=== PATIENT | female | born 1935 | race Caucasian/White ===

== ENCOUNTER 2020-12-17 10:50 | Outpatient (REF) | payer MEDICARE, SELFPAY | END 2020-12-17 10:51 | disposition home or self-care (01) | LOC: HO.HMGCLDS 10:50 | PROVIDERS: PCP Internal Medicine; Visit Provider Internal Medicine | DX: Z20.822 Contact with and (suspected) exposure to COVID-19 (principal) | CPT/HCPCS: 36415; C9803; U0003 ==

== ENCOUNTER 2021-03-13 13:53 | Outpatient (REF) | payer MEDICARE, MEDICAID, SELFPAY | END 2021-03-13 13:54 | disposition home or self-care (01) | LOC: HO.HAP 13:53 | PROVIDERS: Visit Provider Internal Medicine | DX: Z46.1 Encounter for fitting and adjustment of hearing aid (principal); H90.3 Sensorineural hearing loss, bilateral | CPT/HCPCS: V5275 ==

== ENCOUNTER 2021-04-09 14:41 | Outpatient (REF) | payer MEDICARE, MEDICAID, SELFPAY | END 2021-04-09 14:42 | disposition home or self-care (01) | LOC: HO.HAP 14:41 | PROVIDERS: Visit Provider Internal Medicine | DX: H90.3 Sensorineural hearing loss, bilateral (principal); Z46.1 Encounter for fitting and adjustment of hearing aid | CPT/HCPCS: V5264 ==

== ENCOUNTER 2021-08-16 14:37 | Inpatient (IN) | payer MEDICARE, MEDICAID, SELFPAY ==
[2021-08-16] VITALS (8 sets, daily range): BP systolic 144–194; BP diastolic 51–100; PULSE 57–68; RESP 14–18; TEMP 36–36.6; O2SAT 96–97; BMI 448.6
--- NOTE | ~2021-08-16 | US_ITS ---
EXAMINATION: RENAL ULTRASOUND WITH RENAL ARTERY DOPPLER CLINICAL INFORMATION: This is an 85-year-old female with hypertension. Chronic kidney disease. Acute kidney injury. Possible renal artery stenosis. COMPARISON: Comparison is made to a previous CT scan of the abdomen dated 12/26/2015 which demonstrated some atrophy to the kidneys. TECHNIQUE: Bilateral renal ultrasound with renovascular Doppler was performed. FINDINGS: The right kidney measures 10.1 x 5.0 x 5.0 cm. There is no evidence of hydronephrosis. There is increased echogenicity to the kidney with decreased cortical medullary differentiation. No stone or mass is seen. The left kidney measures 9.0 x 4.8 x 5.3 cm. There is increased echogenicity to the kidney with decreased cortical medullary differentiation. There is no stone or mass. There is an anechoic, nonnodular, noncalcified, thin-walled, nonseptated simple cyst in the upper pole kidney measuring 1.5 x 1.6 x 1.7 cm. This cyst was present previously. Color Doppler flow evaluation with spectral waveform analysis was performed. The aorta measures 87 cm/s. The proximal right renal artery could not be seen. The velocities measure 98-1 25 cm/s. The proximal left renal artery could not be seen. The velocities measure 42-60 5 cm. The right renal artery ratio is 1.4. The left renal artery ratio is 0.7. The renal veins appear patent. There are normal resistive indices. There is no post stenotic turbulence. US/US renal doppler IMPRESSION: 1. There is bilateral medical renal disease with decreased cortical medullary differentiation. 2. There is no Doppler evidence of renal artery stenosis.
--- NOTE | ~2021-08-16 | US_ITS ---
EXAMINATION: RENAL ULTRASOUND WITH RENAL ARTERY DOPPLER CLINICAL INFORMATION: This is an 85-year-old female with hypertension. Chronic kidney disease. Acute kidney injury. Possible renal artery stenosis. COMPARISON: Comparison is made to a previous CT scan of the abdomen dated 12/26/2015 which demonstrated some atrophy to the kidneys. TECHNIQUE: Bilateral renal ultrasound with renovascular Doppler was performed. FINDINGS: The right kidney measures 10.1 x 5.0 x 5.0 cm. There is no evidence of hydronephrosis. There is increased echogenicity to the kidney with decreased cortical medullary differentiation. No stone or mass is seen. The left kidney measures 9.0 x 4.8 x 5.3 cm. There is increased echogenicity to the kidney with decreased cortical medullary differentiation. There is no stone or mass. There is an anechoic, nonnodular, noncalcified, thin-walled, nonseptated simple cyst in the upper pole kidney measuring 1.5 x 1.6 x 1.7 cm. This cyst was present previously. Color Doppler flow evaluation with spectral waveform analysis was performed. The aorta measures 87 cm/s. The proximal right renal artery could not be seen. The velocities measure 98-1 25 cm/s. The proximal left renal artery could not be seen. The velocities measure 42-60 5 cm. The right renal artery ratio is 1.4. The left renal artery ratio is 0.7. The renal veins appear patent. There are normal resistive indices. There is no post stenotic turbulence. US/US renal BI IMPRESSION: 1. There is bilateral medical renal disease with decreased cortical medullary differentiation. 2. There is no Doppler evidence of renal artery stenosis.
--- NOTE | ~2021-08-16 | XR_ITS ---
EXAMINATION: XR CHEST CLINICAL INFORMATION: Dyspnea COMPARISON: Chest radiograph from 01/31/2020 TECHNIQUE: Frontal view of the chest was obtained. FINDINGS: Bilateral low lung volumes. No pneumothorax. Trachea is midline. Cardiomediastinal silhouette is not enlarged. No large pleural effusion. Osseous structures are intact. Soft tissues are unremarkable. XR/XR chest 1V IMPRESSION: No acute cardiopulmonary process.
--- NOTE | ~2021-08-16 | CT_ITS ---
EXAMINATION: CT HEAD WITHOUT CONTRAST CLINICAL INFORMATION: Dizziness COMPARISON: Head CT from 11/24/2019 TECHNIQUE: Contiguous axial imaging was performed from the skull base to vertex without intravenous administration of contrast. This CT examination was performed using dose optimization techniques as appropriate, variously including the following: *Automated exposure control *Adjustment of mA and/or kV according to patient size (this includes techniques or standardized protocols for targeted exams where dose is matched to indication/reason for exam; i.e. extremities or head) *Use of iterative reconstruction technique DLP: 735 mGy-cm FINDINGS: There is atherosclerotic calcification of cavernous carotid arteries. No evidence of a dense cerebral artery sign. The brain parenchyma has normal attenuation. The negro-white matter differentiation is well preserved. No evidence of an acute major vascular territory infarction. No intracranial hemorrhage, extra-axial fluid collection, focal mass effect or midline shift. Chronic mild volume loss of brain parenchyma with commensurate prominence of ventricles and sulci. No hydrocephalus. Brainstem and cerebellum have a normal appearance. The cerebellar tonsils are in normal position. The calvarium is intact. There is hyperostosis frontalis interna. The visualized paranasal sinuses, mastoid air cells and middle ear cavities are well aerated. There is a small mucous retention cyst within a right anterior ethmoid air cell. Prior ocular lens replacements. CT/CT head/brain wo con IMPRESSION: No evidence of hemorrhage or other acute intracranial pathology compared to 11/24/2019.
--- NOTE | 2021-08-16 14:53 | ED_ITS ---
HPI - Weakness General Stated complaint: weakness Time Seen by Provider: 08/16/21 14:53 Source: patient and EMS Mode of arrival: EMS Limitations: no limitations History of Present Illness Complaint: generalized weakness Onset (ago): day(s) (1) Duration: intermittent Location: generalized Migration: none Severity: moderate Quality: other (weakness, just left rehab) Relieving factors: none Exacerbating factors: none Context: other (was in a rehab for a while) Associated symptoms: other (difficulty voiding feels weak) Related Data Home Medications Medication Instructions Recorded Confirmed acetaminophen 325 mg tablet 650 mg PO Q4H PRN 08/16/21 08/16/21 albuterol sulfate 90 mcg/actuation 2 puff INHALATION Q4H PRN 08/16/21 08/16/21 aerosol inhaler atorvastatin 80 mg tablet 80 mg PO BEDTIME 08/16/21 08/16/21 bupropion HCl 150 mg 24 hr tablet, 1 tab PO DAILY 08/16/21 extended release carvedilol 25 mg tablet 1 tab PO BID 08/16/21 famotidine 20 mg tablet 1 tab PO BID 08/16/21 gabapentin 100 mg capsule 1 cap PO BEDTIME 08/16/21 hydralazine 50 mg tablet 1 tab PO TID 08/16/21 loratadine 10 mg tablet 10 mg PO DAILY PRN 08/16/21 08/16/21 lorazepam 0.5 mg tablet 1 tab PO BEDTIME PRN 08/16/21 oxybutynin chloride 5 mg tablet 5 mg PO DAILY 08/16/21 08/16/21 sennosides 8.6 mg tablet (senna) 17.2 mg PO DAILY PRN 08/16/21 08/16/21 sodium bicarbonate 325 mg tablet 1 tab PO TID 08/16/21 umeclidinium 62.5 mcg/actuation 1 puff INHALATION DAILY 08/16/21 blister powder for inhalation (Incruse Ellipta) Allergies Allergy/AdvReac Type Severity Reaction Status Date / Time No Known Allergies Allergy Verified 08/16/21 15:17 Review of Systems Review of Systems: Constitutional : No Weight loss, No Fever, No Chills, pos Fatigue, pos Malaise ENT/Mouth : No sore throat, No Rhinorrhea Eyes: No Eye Pain, No Swelling, No Redness Cardiovascular : No Chest Pain, No SOB, No Dyspnea on Exertion, No Orthopnea, No Edema, No Palpitations Respiratory : No Cough, No Sputum, No Wheezing Gastrointestinal : No Nausea, No Vomiting, No Diarrhea, No Constipation, No abdominal Pain, No Hematochezia, No Melena Genitourinary : No Dysuria, No Urinary Frequency, No Hematuria, pos hesitancy Musculoskeletal : No joint pain, No Myalgias, No Joint Swelling Skin : No Skin Lesions, No rash Neuro : pos Weakness, No Numbness, pos Dizziness, No Headache Psych : No Anxiety/Panic, No Depression Heme/Lymph: No Bruising, No Bleeding,No Lymphadenopathy Endocrine : No Polyuria, No Polydipsia All other systems reviewed and are negative [facility] Past Medical History Attestation statement: The following information was validated with the patient. Medical History COPD (chronic obstructive pulmonary disease) High cholesterol HTN (hypertension) Kidney disease Social History Social History (Updated 08/16/21 @ 15:30 by Lindsay Vazquez DO) Patient Tobacco Use Status: Tobacco use Unknown Use of substances other than those prescribed or required for medical reasons: No Advance Directives: No Advance Directives Information Provided: No Physical Exam Vital Signs: Appearance: Alert. Oriented X3. No acute distress. Eyes: Pupils equal, round and reactive to light. ENT: Pharynx normal. Neck: Normal inspection. Neck supple. CVS: Normal heart rate and rhythm. Pulses normal. Respiratory: No respiratory distress. Breath sounds slightly decreased Abdomen: Soft and nontender. Skin: Skin warm and dry. Normal skin color. Normal skin turgor. Extremities: No lower extremity edema. No calf ttp Neuro: Oriented X 3. No motor deficit. No sensory deficit. Course Course Course Narrative: RAÚL on CKD fluids ordered , no CP, trop mildly elevated but no RAYO, no CP/SOB has hx of vertigo signed out to Keon NAVARRO pending further workup anticipate admission MDM - Weakness MDM Narrative Medical decision making narrative: 85 yo female with COPD, HTN, HLD , vertigo here with c/o dizziness and feeling foggy worse with standing x 1 days, she denies CP, states her breathing is at baseline. Labs, CT head, EKG, ordered no focal findings, just overall weakness - infectious and metabolic workup ordered ECG Data Attestation: I personally reviewed and interpreted this ECG as follows: ECG interpretation date: 08/16/21 ECG interpretation time: 15:14 Interpretation: Rate: 57 Rhythm: sinus bradycardia with 1st degree AVB [place]: normal Normal P waves. Normal CARLOS. Normal QRS complex. ST T wave : normal no RAYO, inverted I and aVL qTC: normal prior studies: no acute ischemia The study has been interpreted contemporaneously by me. . Discharge Plan Discharge Clinical Impression: Acute kidney injury superimposed on chronic kidney disease, Weakness Prescriptions: No Action carvedilol 25 mg tablet 1 tab PO BID RF: 0 sodium bicarbonate 325 mg tablet 1 tab PO TID RF: 0 famotidine 20 mg tablet 1 tab PO BID RF: 0 lorazepam 0.5 mg tablet 1 tab PO BEDTIME PRN (Reason: Anxiety) RF: 0 hydralazine 50 mg tablet 1 tab PO TID RF: 0 gabapentin 100 mg capsule 1 cap PO BEDTIME RF: 0 rosuvastatin 20 mg tablet 1 tab PO DAILY RF: 0 bupropion HCl 150 mg tablet extended release 24 hr 1 tab PO DAILY RF: 0 venlafaxine 150 mg tablet extended release 24hr 1 tab PO QAM RF: 0 Incruse Ellipta 62.5 mcg/actuation blister with device 1 puff inhalation DAILY RF: 0
--- NOTE | 2021-08-16 14:56 | ECG_ITS ---
Test Reason : WEAKNESS Blood Pressure : / mmHG Vent. Rate : 057 BPM Atrial Rate : 057 BPM P-R Int : 200 ms QRS Dur : 080 ms QT Int : 412 ms P-R-T Axes : 036 -07 080 degrees QTc Int : 401 ms Sinus bradycardia Otherwise normal ECG When compared with ECG of 31-JAN-2020 10:04, QT has shortened Referred By: Lindsay Vazquez Electronically Signed By:SHELLY ARAGON
[2021-08-16 15:40] LABS: MANUAL DIFF FLAG NO
[2021-08-16] MEDS: Meclizine HCl 25 MG TABLET PO (15:40)
[2021-08-16 15:42] LABS: Basophils Percent Auto 0.2 % (0-2); Eosinophils Absolute Auto 0.2 X10*3/uL (0.0-0.4); Hematocrit 38.1 % (37-47); Hemoglobin 11.4 g/dl (12.0-16.0); Imm Gran Abs Auto 0.04 X10*3/uL (0.00-0.03); Imm Gran Pct Auto 0.4 % (0.0-0.4); Lymphocytes Absolute Auto 1.1 X10*3/uL (1.2-4.9); Lymphocytes Percent Auto 10.4 % (20-40); Mean Corpuscular HGB Conc 29.9 g/dl (31.0-35.0); Mean Corpuscular Hemoglobin 28.6 pg (27.0-33.0); Mean Corpuscular Volume 95.7 fL (80-98); Mean Platelet Volume 9.3 fL (9.4-12.3); Monocytes Absolute Auto 1.2 X10*3/uL (0.1-1.2); Monocytes Percent Auto 11.5 % (2-11); Neutrophils Absolute Auto 7.8 X10*3/uL (2.0-8.3); Neutrophils Percent Auto 75.5 % (45-73); Platelet Count 185 X10*3/uL (160-400); Red Blood Count 3.98 X10*6/uL (4.20-5.50); Red Cell Distribution Width 15.1 % (11.0-16.0); White Blood Count 10.4 X10*3/uL (4.8-10.8)
[2021-08-16 15:44] LABS: VBG HCO3 26 mmol/L (22-26); VBG pCO2 53 mmHg; VBG pH 7.29 (7.32-7.43); VBG pO2 56 mmHg
[2021-08-16 15:45] LABS: Venous Blood Gas Refer to POC result
--- NOTE | 2021-08-16 15:50 | PHA.MEDREC ---
Pharmacy Consult ? Medication Reconciliation Pharmacy has completed the medication reconciliation. Spoke to RN at [facility] to clarify between med claim history and list present in chart. Maria Ines WashingtonD
[2021-08-16 15:55] LABS: COVID-19 Test Negative (Negative)
[2021-08-16 16:06] LABS: Lactic Acid 1.2 mmol/L (0.5-2.0)
[2021-08-16 16:10] LABS: Alanine Aminotransferase 18 U/L (0-31); Albumin Level 3.5 g/dL (3.5-5.0); Alkaline Phosphatase 70 U/L (39-117); Anion Gap 13 (12-20); Aspartate Amino Transferase 12 U/L (5-31); Bilirubin Direct < 0.2 mg/dL (0.0-0.5); Bilirubin Total 0.5 mg/dL (0.0-1.0); Blood Urea Nitrogen 45 mg/dL (9-16); Calcium 8.5 mg/dL (8.4-10.2); Carbon Dioxide 24 mmol/L (22-29); Chloride 109 mmol/L (96-108); Creatinine Clr Calc Pharmacy 85.8; Estimated Glomerular Filt Rate 11; Glucose Random 94 mg/dL (60-115); Lipase 36 U/L (8-78); Potassium 5.2 mmol/L (3.3-5.1); Sodium 141 mmol/L (135-145); Total Protein 5.7 g/dL (6.5-8.0)
[2021-08-16 16:20] LABS: Troponin-I High Sensitivity 18.9 ng/L (<3.5-17.0)
[2021-08-16 16:30] LABS: TSH reflex Free T4 1.02 uIU/mL (0.32-4.0)
[2021-08-16 16:50] LABS: Appearance Urine CLEAR; Color Urine YELLOW; Glucose Urine UA NEG (NEG); Leukocyte Esterase Urine NEG (NEG); Nitrite Urine NEG (NEG); Urine Blood NEG (NEG); Urine Ketones NEG (NEG); Urine Protein TRACE MG/DL (NEG-TRACE)
--- NOTE | 2021-08-16 16:55 | PC.NURSE ---
Addendum entered by Yamel Alexander 08/16/21 23:08: 80ml. Sinus tarun on telemety. Speech clear. Original Note: Pt is alert/oriented. States feeling sl dizzy, no chest pain and mild SOB, Able to pivot to bedside commode in attempt to void but unable, bladder scan
[2021-08-16] MEDS: 0.9 % Sodium Chloride 500 ML IV (17:04)
--- NOTE | 2021-08-16 17:11 | PC.NURSE ---
STRAIGHT CATH OUT PUT 450 ML
--- NOTE | 2021-08-16 19:46 | ED_ITS ---
HPI - General Adult General Chief complaint: General Medical Stated complaint: weakness Time Seen by Provider: 08/16/21 14:53 Source: patient and EMS Mode of arrival: EMS Limitations: no limitations Related Data Home Medications Medication Instructions Recorded Confirmed acetaminophen 325 mg tablet 650 mg PO Q4H PRN 08/16/21 08/16/21 albuterol sulfate 90 mcg/actuation 2 puff INHALATION Q4H PRN 08/16/21 08/16/21 aerosol inhaler atorvastatin 80 mg tablet 80 mg PO BEDTIME 08/16/21 08/16/21 bupropion HCl 150 mg 24 hr tablet, 1 tab PO DAILY 08/16/21 08/16/21 extended release carvedilol 25 mg tablet 1 tab PO BID 08/16/21 08/16/21 famotidine 20 mg tablet 1 tab PO BID 08/16/21 08/16/21 gabapentin 100 mg capsule 1 cap PO BEDTIME 08/16/21 08/16/21 hydralazine 50 mg tablet 1 tab PO TID 08/16/21 08/16/21 loratadine 10 mg tablet 10 mg PO DAILY PRN 08/16/21 08/16/21 lorazepam 0.5 mg tablet 1 tab PO BEDTIME PRN 08/16/21 08/16/21 oxybutynin chloride 5 mg tablet 5 mg PO DAILY 08/16/21 08/16/21 sennosides 8.6 mg tablet (senna) 17.2 mg PO DAILY PRN 08/16/21 08/16/21 sodium bicarbonate 325 mg tablet 1 tab PO TID 08/16/21 08/16/21 umeclidinium 62.5 mcg/actuation 1 puff INHALATION DAILY 08/16/21 08/16/21 blister powder for inhalation (Incruse Ellipta) Allergies Allergy/AdvReac Type Severity Reaction Status Date / Time No Known Allergies Allergy Verified 08/16/21 15:17 [facility] Past Medical History Medical History COPD (chronic obstructive pulmonary disease) High cholesterol HTN (hypertension) Kidney disease Social History Social History (Updated 08/16/21 @ 15:30 by Lindsay Vazquez DO) Patient Tobacco Use Status: Tobacco use Unknown Use of substances other than those prescribed or required for medical reasons: No Advance Directives: No Advance Directives Information Provided: No Physical Exam Vital Signs: Vital Signs: Last Vital Signs Temp 97.8 F 08/16/21 17:07 Pulse 60 08/16/21 20:16 Resp 16 08/16/21 20:06 BP 144/65 H 08/16/21 20:16 Pulse Ox 96 08/16/21 20:06 Body Mass Index 448.6 Course Reevaluation(s) Reevaluation #1: Repeat labs show RAÚL still, also hyperkalemia, will give calcium gluconate and plan on admission. Text to hospitalist. Time: 21:50 Medical Decision Making Lab Data Result diagrams: 08/16/21 15:33 08/16/21 20:45 Labs: Lab Results 08/16/21 08/16/21 08/16/21 Range/Units 15:33 15:33 15:33 WBC 10.4 (4.8-10.8) X10*3/uL RBC 3.98 L (4.20-5.50) X10*6/uL Hgb 11.4 L (12.0-16.0) g/dl Hct 38.1 (37-47) % MCV 95.7 (80-98) fL MCH 28.6 (27.0-33.0) pg MCHC 29.9 L (31.0-35.0) g/dl RDW 15.1 (11.0-16.0) % Plt Count 185 (160-400) X10*3/uL MPV 9.3 L (9.4-12.3) fL Immature Gran % (Auto) 0.4 (0.0-0.4) % Neut % (Auto) 75.5 H (45-73) % Lymph % (Auto) 10.4 L (20-40) % [place] % (Auto) 11.5 H (2-11) % Eos % (Auto) 2.0 (0-4) % Baso % (Auto) 0.2 (0-2) % Lymph # (Auto) 1.1 L (1.2-4.9) X10*3/uL [place] # (Auto) 1.2 (0.1-1.2) X10*3/uL Eos # (Auto) 0.2 (0.0-0.4) X10*3/uL Baso # (Auto) 0.0 (0.0-0.2) X10*3/uL Abs Immat Gran (auto) 0.04 H (0.00-0.03) X10*3/uL Absolute Neuts (auto) 7.8 (2.0-8.3) X10*3/uL Absolute Nucleated RBC 0.000 (0.0-0.012) X10*3/uL Nucleated RBC % (auto) 0.0 (0.0-0.2) /100WBC VBG pH (7.32-7.43) VBG pCO2 mmHg VBG pO2 mmHg VBG HCO3 (22-26) mmol/L VBG O2 Saturation % VBG Base Excess mmol/L Sodium 141 (135-145) mmol/L Potassium 5.2 H (3.3-5.1) mmol/L Chloride 109 H (96-108) mmol/L Carbon Dioxide 24 (22-29) mmol/L Anion Gap 13 (12-20) BUN 45 H (9-16) mg/dL Creatinine 3.85 H (0.5-1.4) mg/dL Estim Creat Clear Calc 85.8 Estimated GFR 11 Random Glucose 94 (60-115) mg/dL Lactic Acid (0.5-2.0) mmol/L Calcium 8.5 (8.4-10.2) mg/dL Magnesium 2.0 (1.6-2.6) mg/dL Total Bilirubin 0.5 (0.0-1.0) mg/dL Direct Bilirubin < 0.2 (0.0-0.5) mg/dL AST 12 (5-31) U/L ALT 18 (0-31) U/L Alkaline Phosphatase 70 (39-117) U/L Troponin I High Sens (<3.5-17.0) ng/L Total Protein 5.7 L (6.5-8.0) g/dL Albumin 3.5 (3.5-5.0) g/dL Lipase 36 (8-78) U/L TSH 1.02 (0.32-4.0) uIU/mL Urine Color Urine Appearance Urine pH (5.0-8.0) Ur Specific [place] (1.005-1.025) Urine Protein (NEG-TRACE) MG/DL Urine Glucose (UA) (NEG) MG/DL Urine Ketones (NEG) MG/DL Urine Blood (NEG) Urine Nitrite (NEG) Ur Leukocyte Esterase (NEG) COVID-19 (AMANDA) Negative (Negative) COVID-19 Clin Com See Note 08/16/21 08/16/21 08/16/21 Range/Units 15:33 15:33 15:38 WBC (4.8-10.8) X10*3/uL RBC (4.20-5.50) X10*6/uL Hgb (12.0-16.0) g/dl Hct (37-47) % MCV (80-98) fL MCH (27.0-33.0) pg MCHC (31.0-35.0) g/dl RDW (11.0-16.0) % Plt Count (160-400) X10*3/uL MPV (9.4-12.3) fL Immature Gran % (Auto) (0.0-0.4) % Neut % (Auto) (45-73) % Lymph % (Auto) (20-40) % [place] % (Auto) (2-11) % Eos % (Auto) (0-4) % Baso % (Auto) (0-2) % Lymph # (Auto) (1.2-4.9) X10*3/uL [place] # (Auto) (0.1-1.2) X10*3/uL Eos # (Auto) (0.0-0.4) X10*3/uL Baso # (Auto) (0.0-0.2) X10*3/uL Abs Immat Gran (auto) (0.00-0.03) X10*3/uL Absolute Neuts (auto) (2.0-8.3) X10*3/uL Absolute Nucleated RBC (0.0-0.012) X10*3/uL Nucleated RBC % (auto) (0.0-0.2) /100WBC VBG pH 7.29 L (7.32-7.43) VBG pCO2 53 mmHg VBG pO2 56 mmHg VBG HCO3 26 (22-26) mmol/L VBG O2 Saturation 82.0 % VBG Base Excess -1.0 mmol/L Sodium (135-145) mmol/L Potassium (3.3-5.1) mmol/L Chloride (96-108) mmol/L Carbon Dioxide (22-29) mmol/L Anion Gap (12-20) BUN (9-16) mg/dL Creatinine (0.5-1.4) mg/dL Estim Creat Clear Calc Estimated GFR Random Glucose (60-115) mg/dL Lactic Acid 1.2 (0.5-2.0) mmol/L Calcium (8.4-10.2) mg/dL Magnesium (1.6-2.6) mg/dL Total Bilirubin (0.0-1.0) mg/dL Direct Bilirubin (0.0-0.5) mg/dL AST (5-31) U/L ALT (0-31) U/L Alkaline Phosphatase (39-117) U/L Troponin I High Sens 18.9 H* (<3.5-17.0) ng/L Total Protein (6.5-8.0) g/dL Albumin (3.5-5.0) g/dL Lipase (8-78) U/L TSH (0.32-4.0) uIU/mL Urine Color Urine Appearance Urine pH (5.0-8.0) Ur Specific [place] (1.005-1.025) Urine Protein (NEG-TRACE) MG/DL Urine Glucose (UA) (NEG) MG/DL Urine Ketones (NEG) MG/DL Urine Blood (NEG) Urine Nitrite (NEG) Ur Leukocyte Esterase (NEG) COVID-19 (AMANDA) (Negative) COVID-19 Clin Com 08/16/21 08/16/21 08/16/21 Range/Units 16:29 20:45 20:45 WBC (4.8-10.8) X10*3/uL RBC (4.20-5.50) X10*6/uL Hgb (12.0-16.0) g/dl Hct (37-47) % MCV (80-98) fL MCH (27.0-33.0) pg MCHC (31.0-35.0) g/dl RDW (11.0-16.0) % Plt Count (160-400) X10*3/uL MPV (9.4-12.3) fL Immature Gran % (Auto) (0.0-0.4) % Neut % (Auto) (45-73) % Lymph % (Auto) (20-40) % [place] % (Auto) (2-11) % Eos % (Auto) (0-4) % Baso % (Auto) (0-2) % Lymph # (Auto) (1.2-4.9) X10*3/uL [place] # (Auto) (0.1-1.2) X10*3/uL Eos # (Auto) (0.0-0.4) X10*3/uL Baso # (Auto) (0.0-0.2) X10*3/uL Abs Immat Gran (auto) (0.00-0.03) X10*3/uL Absolute Neuts (auto) (2.0-8.3) X10*3/uL Absolute Nucleated RBC (0.0-0.012) X10*3/uL Nucleated RBC % (auto) (0.0-0.2) /100WBC VBG pH (7.32-7.43) VBG pCO2 mmHg VBG pO2 mmHg VBG HCO3 (22-26) mmol/L VBG O2 Saturation % VBG Base Excess mmol/L Sodium 143 (135-145) mmol/L Potassium 5.6 H (3.3-5.1) mmol/L Chloride 110 H (96-108) mmol/L Carbon Dioxide 25 (22-29) mmol/L Anion Gap 14 (12-20) BUN 43 H (9-16) mg/dL Creatinine 3.70 H (0.5-1.4) mg/dL Estim Creat Clear Calc 89.3 Estimated GFR 12 Random Glucose 102 (60-115) mg/dL Lactic Acid (0.5-2.0) mmol/L Calcium 8.5 (8.4-10.2) mg/dL Magnesium (1.6-2.6) mg/dL Total Bilirubin (0.0-1.0) mg/dL Direct Bilirubin (0.0-0.5) mg/dL AST (5-31) U/L ALT (0-31) U/L Alkaline Phosphatase (39-117) U/L Troponin I High Sens 19.3 H* (<3.5-17.0) ng/L Total Protein (6.5-8.0) g/dL Albumin (3.5-5.0) g/dL Lipase (8-78) U/L TSH (0.32-4.0) uIU/mL Urine Color YELLOW Urine Appearance CLEAR Urine pH 6.0 (5.0-8.0) Ur Specific [place] 1.020 (1.005-1.025) Urine Protein TRACE (NEG-TRACE) MG/DL Urine Glucose (UA) NEG (NEG) MG/DL Urine Ketones NEG (NEG) MG/DL Urine Blood NEG (NEG) Urine Nitrite NEG (NEG) Ur Leukocyte Esterase NEG (NEG) COVID-19 (AMANDA) (Negative) COVID-19 Clin Com Imaging Data CT scan - head: Attestation: I personally reviewed and interpreted this imaging study as follows: Radiologist's impression: [place] [id number] CT Scan Report Signed Patient: Naomy Doty MR#: [id number] : 1935 Acct:[id number] Age/Sex: 85 / F ADM Date: 08/16/21 Loc: [facility].ED Attending Dr: Ordering Physician: Lindsay Vazquez DO Date of Service: 08/16/21 Procedure(s): CT head/brain wo con Accession Number(s): [id number] cc: Lindsay Vazquez DO~ EXAMINATION: CT HEAD WITHOUT CONTRAST CLINICAL INFORMATION: Dizziness? COMPARISON: Head CT from 11/24/2019 TECHNIQUE: Contiguous axial imaging was performed from the skull base to vertex without intravenous administration of contrast. This CT examination was performed using dose optimization techniques as appropriate, variously including the following: *Automated exposure control *Adjustment of mA and/or kV according to patient size (this includes techniques or standardized protocols for targeted exams where dose is matched to indication/reason for exam; i.e. extremities or head) *Use of iterative reconstruction technique DLP: 735 mGy-cm FINDINGS: There is atherosclerotic calcification of cavernous carotid arteries. No evidence of a dense cerebral artery sign. The brain parenchyma has normal attenuation. The negro-white matter differentiation is well preserved. No evidence of an acute major vascular territory infarction. No intracranial hemorrhage, extra-axial fluid collection, focal mass effect or midline shift. Chronic mild volume loss of brain parenchyma with commensurate prominence of ventricles and sulci. No hydrocephalus. Brainstem and cerebellum have a normal appearance. The cerebellar tonsils are in normal position. The calvarium is intact. There is hyperostosis frontalis interna. The visualized paranasal sinuses, mastoid air cells and middle ear cavities are well aerated. There is a small mucous retention cyst within a right anterior ethmoid air cell. Prior ocular lens replacements. CT/CT head/brain wo con IMPRESSION: No evidence of hemorrhage or other acute intracranial pathology compared to 11/24/2019. Dictated By: RAYNA VELÁZQUEZ MD Signed By: <Electronically signed by RAYNA VELÁZQUEZ MD in OV> 08/16/21 1727 DD/ 1456 TD/TT:? 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
[2021-08-16] MEDS: hydrALAZINE HCl 50 MG TABLET PO (20:04)
[2021-08-16 21:04] LABS: Anion Gap 14 (12-20); Blood Urea Nitrogen 43 mg/dL (9-16); Calcium 8.5 mg/dL (8.4-10.2); Carbon Dioxide 25 mmol/L (22-29); Chloride 110 mmol/L (96-108); Creatinine Clr Calc Pharmacy 89.3; Estimated Glomerular Filt Rate 12; Glucose Random 102 mg/dL (60-115); Potassium 5.6 mmol/L (3.3-5.1); Sodium 143 mmol/L (135-145)
[2021-08-16] MEDS: Lactated Ringers 500 ML 999 ML IV (21:07)
[2021-08-16 21:31] LABS: Troponin-I High Sensitivity 19.3 ng/L (<3.5-17.0)
--- NOTE | 2021-08-16 21:58 | PM.IMHP ---
History of Present Illness Date of Service: 08/16/21 Chief Complaint: Dizziness 85-year-old female with a past medical history of hypertension, hyperlipidemia, chronic kidney disease, COPD, history of vertigo presented to the hospital with a chief complaint of dizziness. Patient is a poor historian Patient reports that over the past few days she has been healing tired and weak; also complains dizziness like room spinning; denies any fall. Denies any loss of consciousness. Denies any chest pain or palpitations. Denies any fever chills. Denies any GI or symptoms. Patient reports that he usually uses a walker and felt mildly unsteady because of the dizziness. Mentions she has been tolerating the diet okay. Denies any headaches numbness tingling or focal weakness. Review of all other systems is negative except mentioned above ER course: Per ER team patient exam was essentially benign; CT head showed no acute findings; EKG was nonischemic; lab showed elevated renal function; urinalysis was negative. Admitted to the hospital for further management. [facility] Medical History (Updated 08/16/21 @ 21:59 by Dash Anderson MD) COPD (chronic obstructive pulmonary disease) High cholesterol HTN (hypertension) Kidney disease Pertinent family history: Reviewed Social History (Updated 08/16/21 @ 15:30 by Lindsay Vazquez DO) Patient Tobacco Use Status: Tobacco use Unknown Use of substances other than those prescribed or required for medical reasons: No Advance Directives: No Advance Directives Information Provided: No Meds Allergies Allergy/AdvReac Type Severity Reaction Status Date / Time No Known Allergies Allergy Verified 08/16/21 15:17 Active Medications: Current Medications Acetaminophen (Acetaminophen 325 Mg Tablet) 650 mg PO Q6H PRN PRN Reason: Pain, Mild (Pain Scale 1-3) Enoxaparin Sodium (Enoxaparin Sodium 40 Mg/0.4 Ml Syringe) 40 mg SUBCUT Q24H JORDY Lactated Ringer's (Lr) 500 mls @ 999 mls/hr IV .Q31M JORDY Last Admin: 08/16/21 21:07 Dose: 999 mls/hr Documented by: Calcium Gluconate (Calcium Gluconate) 1 gm in 50 mls @ 50 mls/hr IV ONCE ONE Stop: 08/16/21 22:46 Dextrose/Sodium Chloride (D51/2ns) 1,000 mls @ 75 mls/hr IVCONT .[id number] [facility] Melatonin (Melatonin 3 Mg Tablet) 6 mg PO BEDTIME PRN PRN Reason: Insomnia Pharmacy Consult (Consult Rx Perform Med Rec) 1 each MISCELLANE ONCE PRN PRN Reason: Consult order Senna (Sennosides 8.6 Mg Tablet) 17.2 mg PO BEDTIME PRN PRN Reason: Constipation Sodium Chloride (0.9 % Sodium Chloride Flush 3 Ml Syringe) 3 ml IVFLUSH QSHIFT [facility] Home Medications Medication Instructions Recorded Confirmed Last Taken Type acetaminophen 325 mg tablet 650 mg PO Q4H PRN 08/16/21 08/16/21 Unknown History albuterol sulfate 90 mcg/actuation 2 puff INHALATION Q4H PRN 08/16/21 08/16/21 Unknown History aerosol inhaler atorvastatin 80 mg tablet 80 mg PO BEDTIME 08/16/21 08/16/21 Unknown History bupropion HCl 150 mg 24 hr tablet, 1 tab PO DAILY 08/16/21 08/16/21 Unknown History extended release carvedilol 25 mg tablet 1 tab PO BID 08/16/21 08/16/21 Unknown History famotidine 20 mg tablet 1 tab PO BID 08/16/21 08/16/21 Unknown History gabapentin 100 mg capsule 1 cap PO BEDTIME 08/16/21 08/16/21 Unknown History hydralazine 50 mg tablet 1 tab PO TID 08/16/21 08/16/21 Unknown History loratadine 10 mg tablet 10 mg PO DAILY PRN 08/16/21 08/16/21 Unknown History lorazepam 0.5 mg tablet 1 tab PO BEDTIME PRN 08/16/21 08/16/21 Unknown History oxybutynin chloride 5 mg tablet 5 mg PO DAILY 08/16/21 08/16/21 Unknown History sennosides 8.6 mg tablet (senna) 17.2 mg PO DAILY PRN 08/16/21 08/16/21 Unknown History sodium bicarbonate 325 mg tablet 1 tab PO TID 08/16/21 08/16/21 Unknown History umeclidinium 62.5 mcg/actuation 1 puff INHALATION DAILY 08/16/21 08/16/21 Unknown History blister powder for inhalation (Incruse Ellipta) Physical Exam Vital Signs and Narrative: Vital Signs: Last Vital Signs Temp 97.8 F 08/16/21 17:07 Pulse 60 08/16/21 20:16 Resp 16 08/16/21 20:06 BP 144/65 H 08/16/21 20:16 Pulse Ox 96 08/16/21 20:06 Body Mass Index 448.6 Gen: Appears be in no acute distress HEENT: NCAT, Moist mucosa. Pulmonary: Vesicular breath sounds, fair air entry CVS: Normal S1-S2 Abdomen: BS+, Soft, Nontender Extremities: Warm well perfused Neuro: Alert and awake. Grossly nonfocal Results Labs CBC and Chem 7: 08/16/21 15:33 08/16/21 20:45 Labs: Laboratory Results - last 24 hr 08/16/21 08/16/21 08/16/21 15:33 15:33 15:33 MCV 95.7 MCH 28.6 MCHC 29.9 L RDW 15.1 Plt Count 185 MPV 9.3 L Immature Gran % (Auto) 0.4 Neut % (Auto) 75.5 H Lymph % (Auto) 10.4 L [place] % (Auto) 11.5 H Eos % (Auto) 2.0 Baso % (Auto) 0.2 Lymph # (Auto) 1.1 L [place] # (Auto) 1.2 Eos # (Auto) 0.2 Baso # (Auto) 0.0 Abs Immat Gran (auto) 0.04 H Absolute Neuts (auto) 7.8 Absolute Nucleated RBC 0.000 Nucleated RBC % (auto) 0.0 VBG pH VBG pCO2 VBG pO2 VBG HCO3 VBG O2 Saturation VBG Base Excess Anion Gap 13 Estim Creat Clear Calc 85.8 Estimated GFR 11 Random Glucose 94 Lactic Acid Calcium 8.5 Magnesium 2.0 Total Bilirubin 0.5 Direct Bilirubin < 0.2 AST 12 ALT 18 Alkaline Phosphatase 70 Troponin I High Sens Total Protein 5.7 L Albumin 3.5 Lipase 36 TSH 1.02 Urine Color Urine Appearance Urine pH Ur Specific Maxwell Urine Protein Urine Glucose (UA) Urine Ketones Urine Blood Urine Nitrite Ur Leukocyte Esterase COVID-19 (AMANDA) Negative COVID-19 Clin Com See Note 08/16/21 08/16/21 08/16/21 15:33 15:33 15:38 MCV MCH MCHC RDW Plt Count MPV Immature Gran % (Auto) Neut % (Auto) Lymph % (Auto) [place] % (Auto) Eos % (Auto) Baso % (Auto) Lymph # (Auto) [place] # (Auto) Eos # (Auto) Baso # (Auto) Abs Immat Gran (auto) Absolute Neuts (auto) Absolute Nucleated RBC Nucleated RBC % (auto) VBG pH 7.29 L VBG pCO2 53 VBG pO2 56 VBG HCO3 26 VBG O2 Saturation 82.0 VBG Base Excess -1.0 Anion Gap Estim Creat Clear Calc Estimated GFR Random Glucose Lactic Acid 1.2 Calcium Magnesium Total Bilirubin Direct Bilirubin AST ALT Alkaline Phosphatase Troponin I High Sens 18.9 H* Total Protein Albumin Lipase TSH Urine Color Urine Appearance Urine pH Ur Specific [place] Urine Protein Urine Glucose (UA) Urine Ketones Urine Blood Urine Nitrite Ur Leukocyte Esterase COVID-19 (AMANDA) COVID-19 Eons 08/16/21 08/16/21 08/16/21 16:29 20:45 20:45 MCV MCH MCHC RDW Plt Count MPV Immature Gran % (Auto) Neut % (Auto) Lymph % (Auto) [place] % (Auto) Eos % (Auto) Baso % (Auto) Lymph # (Auto) [place] # (Auto) Eos # (Auto) Baso # (Auto) Abs Immat Gran (auto) Absolute Neuts (auto) Absolute Nucleated RBC Nucleated RBC % (auto) VBG pH VBG pCO2 VBG pO2 VBG HCO3 VBG O2 Saturation VBG Base Excess Anion Gap 14 Estim Creat Clear Calc 89.3 Estimated GFR 12 Random Glucose 102 Lactic Acid Calcium 8.5 Magnesium Total Bilirubin Direct Bilirubin AST ALT Alkaline Phosphatase Troponin I High Sens 19.3 H* Total Protein Albumin Lipase TSH Urine Color YELLOW Urine Appearance CLEAR Urine pH 6.0 Ur Specific [place] 1.020 Urine Protein TRACE Urine Glucose (UA) NEG Urine Ketones NEG Urine Blood NEG Urine Nitrite NEG Ur Leukocyte Esterase NEG COVID-19 (AMANDA) COVID-19 Clin Com Imaging Radiologist's Impressions: Impressions Head CT 08/16/21 14:56 IMPRESSION: No evidence of hemorrhage or other acute intracranial pathology compared to 11/24/2019. Chest X-Ray 08/16/21 14:57 IMPRESSION: No acute cardiopulmonary process. Assessment and Plan (1) Acute kidney injury superimposed on chronic kidney disease: Status: Acute (2) Weakness: Status: Acute 85-year-old female with a past medical history of hypertension, hyperlipidemia, chronic kidney disease, COPD, history of vertigo presented to the hospital with a chief complaint of dizziness. Dizziness: CT head showed no acute findings. Exam grossly nonfocal. Supportive care. Fall precautions. PT/OT eventually. Orthostatics RAÚL on CKD: Patient's baseline creatinine around 2.8. On presentation patient's creatinine is 3.8. Gentle IV fluids. Nephrology consult. Avoid nephrotoxins. COPD: Stable. Elevated troponins: Likely reduced clearance. Patient denies any chest pain. Mild hyperkalemia: Monitor on tele. repeat the levels. DVT prophylaxis: Lovenox Code status: Full code Quality Stroke Does the patient have a stroke diagnosis?: No VTE Prior VTE?: No VTE Risk Level:: Medical - moderate - high VTE Device Contraindication: Treatment Not Indicated VTE Drug Contraindication: N/A - Med Ordered
[2021-08-16] MEDS: Calcium Gluconate/NaCl,Iso-Osm 1 GM/50 ML PLAST..BAG IV (22:19)
[2021-08-17] VITALS (9 sets, daily range): BP systolic 167–197; BP diastolic 55–65; PULSE 61–65; RESP 15–16; TEMP 36.4–36.6; O2SAT 94–98; BMI 42.6
[2021-08-17] MEDS: Enoxaparin Sodium 40 MG/0.4 ML SYRINGE SUBCUT (01:02)
[2021-08-17] MEDS: Dextrose 5 % and 0.45 % NaCl 1,000 ML 75 ML IVCONT (01:02)
[2021-08-17] MEDS: 0.9 % Sodium Chloride Flush 3 ML SYRINGE IVFLUSH (01:03)
--- NOTE | 2021-08-17 06:13 | PC.NURSE ---
pt sleeping, did not wake pt . will wake pt up for 0800 meds.
[2021-08-17 07:08] LABS: MANUAL DIFF FLAG NO
[2021-08-17 07:13] LABS: Basophils Percent Auto 0.2 % (0-2); Eosinophils Absolute Auto 0.2 X10*3/uL (0.0-0.4); Eosinophils Percent Auto 2.3 % (0-4); Hematocrit 36.3 % (37-47); Hemoglobin 10.7 g/dl (12.0-16.0); Imm Gran Abs Auto 0.04 X10*3/uL (0.00-0.03); Imm Gran Pct Auto 0.4 % (0.0-0.4); Lymphocytes Absolute Auto 1.3 X10*3/uL (1.2-4.9); Lymphocytes Percent Auto 14.1 % (20-40); Mean Corpuscular HGB Conc 29.5 g/dl (31.0-35.0); Mean Corpuscular Hemoglobin 28.5 pg (27.0-33.0); Mean Corpuscular Volume 96.8 fL (80-98); Mean Platelet Volume 9.4 fL (9.4-12.3); Monocytes Percent Auto 10.5 % (2-11); Neutrophils Absolute Auto 6.6 X10*3/uL (2.0-8.3); Neutrophils Percent Auto 72.5 % (45-73); Platelet Count 166 X10*3/uL (160-400); Red Blood Count 3.75 X10*6/uL (4.20-5.50); Red Cell Distribution Width 15.1 % (11.0-16.0); White Blood Count 9.2 X10*3/uL (4.8-10.8)
[2021-08-17 07:41] LABS: Anion Gap 12 (12-20); Blood Urea Nitrogen 41 mg/dL (9-16); Calcium 8.5 mg/dL (8.4-10.2); Carbon Dioxide 25 mmol/L (22-29); Chloride 110 mmol/L (96-108); Creatinine Clr Calc Pharmacy 91.7; Estimated Glomerular Filt Rate 12; Glucose Random 108 mg/dL (60-115); Potassium 5.2 mmol/L (3.3-5.1); Sodium 142 mmol/L (135-145)
[2021-08-17] MEDS: hydrALAZINE HCl 50 MG TABLET PO ×3 (07:43→21:45)
[2021-08-17] MEDS: carvediloL 25 MG TABLET PO ×2 (07:45→21:44)
[2021-08-17] MEDS: Famotidine 20 MG TABLET PO ×2 (07:48→21:45)
[2021-08-17] MEDS: buPROPion HCl XL 150 MG TAB.ER.24H PO (07:48)
--- NOTE | 2021-08-17 07:53 | PC.NURSE ---
pt alert and oriented, no c/o sob/dizziness/headache/nausea. breakfast given, meds given as documented. pt resting quietly, no apparent distress. pt awaiting bed assignment, will continue to monitor.
--- NOTE | 2021-08-17 09:45 | PC.NURSE ---
ultra sound called, requested pt to be NPO until procedure is done. Ultrasound will not be able to take pt until about 1300. Pt made aware. will pass on in report.
--- NOTE | 2021-08-17 12:05 | P.PNIM_ITS ---
Subjective Subjective Date of Service: 08/17/21 Interval History: dizziness improved no urinary retention no flank pain no chest pain no dyspnea usually lives alone, but has been staying with granddaughter lately due to feeling ill Review of Systems Review of Systems: Yes all other systems are reviewed and are negative Physical Exam Vital Signs: Vital Signs: Last Vital Signs Temp 97.8 F 08/16/21 17:07 Pulse 63 08/17/21 11:06 Resp 16 08/17/21 11:06 BP 171/55 H 08/17/21 11:06 Pulse Ox 94 08/17/21 11:06 Body Mass Index 448.6 Gen: in no acute distress HEENT: sclera anicteric, moist mucus membranes Neck: supple Lungs: clear to auscultation bilaterally Heart: regular rate and rhythm, no murmurs Abd: soft, non-tender, non-distended Ext: no edema Skin: warm/well-perfused Neuro: alert and oriented x3, no focal findings Psych: appropriate affect Objective Data Active Medications Acetaminophen (Acetaminophen 325 Mg Tablet) 650 mg PO Q6H PRN PRN Reason: Pain, Mild (Pain Scale 1-3) Albuterol Sulfate (Albuterol Sulfate 90 Mcg 8 Gm Inhaler) 2 puff INHALE Q4H PRN PRN Reason: Shortness Of Breath Atorvastatin Calcium (Atorvastatin Calcium 80 Mg Tablet) 80 mg PO BEDTIME JORDY Bupropion HCl (Bupropion Hcl Xl 150 Mg Tab.Er.24h) 150 mg PO DAILY [facility] Last Admin: 08/17/21 07:48 Dose: 150 mg Documented by: PAOLO Carvedilol (Carvedilol 25 Mg Tablet) 25 mg PO BID [facility]; Protocol Last Admin: 08/17/21 07:45 Dose: 25 mg Documented by: PAOLO Enoxaparin Sodium (Enoxaparin Sodium 40 Mg/0.4 Ml Syringe) 40 mg SUBCUT Q24H [facility] Last Admin: 08/17/21 01:02 Dose: 40 mg Documented by: BOLIVAR Famotidine (Famotidine 20 Mg Tablet) 20 mg PO BID [facility] Last Admin: 08/17/21 07:48 Dose: 20 mg Documented by: PAOLO Gabapentin (Gabapentin 100 Mg Capsule) 100 mg PO BEDTIME [facility] Hydralazine HCl (Hydralazine Hcl 50 Mg Tablet) 50 mg PO TID [facility]; Protocol Last Admin: 08/17/21 07:43 Dose: 50 mg Documented by: PAOLO Lactated Ringer's (Lr) 500 mls @ 999 mls/hr IV .Q31M JORDY Last Infusion: 08/16/21 22:19 Dose: 0 mls/hr Documented by: IGOR Sodium Chloride (Ns) 1,000 mls @ 75 mls/hr IVCONT .[id number] [facility] Loratadine (Loratadine 10 Mg Tablet) 10 mg PO DAILY PRN PRN Reason: Allergy Symptoms Lorazepam (Lorazepam 0.5 Mg Tablet) 0.5 mg PO BEDTIME PRN PRN Reason: Anxiety Melatonin (Melatonin 3 Mg Tablet) 6 mg PO BEDTIME PRN PRN Reason: Insomnia Oxybutynin Chloride (Oxybutynin Chloride Er 5 Mg Tab.Er.24) 10 mg PO DAILY [facility] Last Admin: 08/17/21 07:45 Dose: 10 mg Documented by: PAOLO Pharmacy Consult (Consult Rx Perform Med Rec) 1 each MISCELLANE ONCE PRN PRN Reason: Consult order Senna (Sennosides 8.6 Mg Tablet) 17.2 mg PO BEDTIME PRN PRN Reason: Constipation Senna (Sennosides 8.6 Mg Tablet) 17.2 mg PO DAILY PRN PRN Reason: Constipation Sodium Chloride (0.9 % Sodium Chloride Flush 3 Ml Syringe) 3 ml IVFLUSH QSHIFT [facility] Last Admin: 08/17/21 07:50 Dose: Not Given Documented by: PAOLO Non-Admin Reason: IV Running Labs CBC & Chem 7: 08/17/21 06:36 08/17/21 06:36 Labs: Laboratory Results - last 24 hr 08/16/21 08/16/21 08/16/21 15:33 15:33 15:33 MCV 95.7 MCH 28.6 MCHC 29.9 L RDW 15.1 Plt Count 185 MPV 9.3 L Immature Gran % (Auto) 0.4 Neut % (Auto) 75.5 H Lymph % (Auto) 10.4 L [place] % (Auto) 11.5 H Eos % (Auto) 2.0 Baso % (Auto) 0.2 Lymph # (Auto) 1.1 L [place] # (Auto) 1.2 Eos # (Auto) 0.2 Baso # (Auto) 0.0 Abs Immat Gran (auto) 0.04 H Absolute Neuts (auto) 7.8 Absolute Nucleated RBC 0.000 Nucleated RBC % (auto) 0.0 VBG pH VBG pCO2 VBG pO2 VBG HCO3 VBG O2 Saturation VBG Base Excess Anion Gap 13 Estim Creat Clear Calc 85.8 Estimated GFR 11 Random Glucose 94 Lactic Acid Calcium 8.5 Magnesium 2.0 Total Bilirubin 0.5 Direct Bilirubin < 0.2 AST 12 ALT 18 Alkaline Phosphatase 70 Troponin I High Sens Total Protein 5.7 L Albumin 3.5 Lipase 36 TSH 1.02 Urine Color Urine Appearance Urine pH Ur Specific [place] Urine Protein Urine Glucose (UA) Urine Ketones Urine Blood Urine Nitrite Ur Leukocyte Esterase COVID-19 (AMANDA) Negative COVID-19 Clin Com See Note 08/16/21 08/16/21 08/16/21 15:33 15:33 15:38 MCV MCH MCHC RDW Plt Count MPV Immature Gran % (Auto) Neut % (Auto) Lymph % (Auto) [place] % (Auto) Eos % (Auto) Baso % (Auto) Lymph # (Auto) [place] # (Auto) Eos # (Auto) Baso # (Auto) Abs Immat Gran (auto) Absolute Neuts (auto) Absolute Nucleated RBC Nucleated RBC % (auto) VBG pH 7.29 L VBG pCO2 53 VBG pO2 56 VBG HCO3 26 VBG O2 Saturation 82.0 VBG Base Excess -1.0 Anion Gap Estim Creat Clear Calc Estimated GFR Random Glucose Lactic Acid 1.2 Calcium Magnesium Total Bilirubin Direct Bilirubin AST ALT Alkaline Phosphatase Troponin I High Sens 18.9 H* Total Protein Albumin Lipase TSH Urine Color Urine Appearance Urine pH Ur Specific [place] Urine Protein Urine Glucose (UA) Urine Ketones Urine Blood Urine Nitrite Ur Leukocyte Esterase COVID-19 (AMANDA) COVID-[employer] 08/16/21 08/16/21 08/16/21 16:29 20:45 20:45 MCV MCH MCHC RDW Plt Count MPV Immature Gran % (Auto) Neut % (Auto) Lymph % (Auto) [place] % (Auto) Eos % (Auto) Baso % (Auto) Lymph # (Auto) [place] # (Auto) Eos # (Auto) Baso # (Auto) Abs Immat Gran (auto) Absolute Neuts (auto) Absolute Nucleated RBC Nucleated RBC % (auto) VBG pH VBG pCO2 VBG pO2 VBG HCO3 VBG O2 Saturation VBG Base Excess Anion Gap 14 Estim Creat Clear Calc 89.3 Estimated GFR 12 Random Glucose 102 Lactic Acid Calcium 8.5 Magnesium Total Bilirubin Direct Bilirubin AST ALT Alkaline Phosphatase Troponin I High Sens 19.3 H* Total Protein Albumin Lipase TSH Urine Color YELLOW Urine Appearance CLEAR Urine pH 6.0 Ur Specific [place] 1.020 Urine Protein TRACE Urine Glucose (UA) NEG Urine Ketones NEG Urine Blood NEG Urine Nitrite NEG Ur Leukocyte Esterase NEG COVID-19 (AMANDA) COVID-19 Clin Com 08/17/21 08/17/21 06:36 06:36 MCV 96.8 MCH 28.5 MCHC 29.5 L RDW 15.1 Plt Count 166 MPV 9.4 Immature Gran % (Auto) 0.4 Neut % (Auto) 72.5 Lymph % (Auto) 14.1 L [place] % (Auto) 10.5 Eos % (Auto) 2.3 Baso % (Auto) 0.2 Lymph # (Auto) 1.3 [place] # (Auto) 1.0 Eos # (Auto) 0.2 Baso # (Auto) 0.0 Abs Immat Gran (auto) 0.04 H Absolute Neuts (auto) 6.6 Absolute Nucleated RBC 0.000 Nucleated RBC % (auto) 0.0 VBG pH VBG pCO2 VBG pO2 VBG HCO3 VBG O2 Saturation VBG Base Excess Anion Gap 12 Estim Creat Clear Calc 91.7 Estimated GFR 12 Random Glucose 108 Lactic Acid Calcium 8.5 Magnesium Total Bilirubin Direct Bilirubin AST ALT Alkaline Phosphatase Troponin I High Sens Total Protein Albumin Lipase TSH Urine Color Urine Appearance Urine pH Ur Specific [place] Urine Protein Urine Glucose (UA) Urine Ketones Urine Blood Urine Nitrite Ur Leukocyte Esterase COVID-19 (AMANDA) COVID-19 Clin Com Assessment and Plan (1) Acute kidney injury superimposed on chronic kidney disease: Status: Acute Assessment and Plan: hospital d#2 85yo F with HTN, HLD, COPD, vertigo, CKD4 presenting with dizziness, admitted with RAÚL # RAÚL/CKD4 - continue isotonic fluid hydration, recheck BMP in am, check FENa + renal US, Nephro consult pending # hyperK - improving, mild # dizziness - was hypertensive but had relative orthostatic hypotension; continue IV fluid hydration # Tn-I elevation - flat, asymptomatic; likely due to renal dysfunction # HTN - continue carvedilol, hydralazine # HLD - continue statin # neuropathy - continue gabapentin # COPD - prn albuterol # mood disorder - bupropion, lorazepam # VTE ppx - LMWH Quality Stroke Does the patient have a stroke diagnosis?: No VTE Prior VTE?: No VTE Risk Level:: Medical - moderate - high VTE Device Contraindication: Treatment Not Indicated VTE Drug Contraindication: N/A - Med Ordered
[2021-08-17] MEDS: 0.9 % Sodium Chloride 1,000 ML 75 ML IVCONT (12:43)
[2021-08-17] MEDS: Enoxaparin Sodium 30 MG/0.3 ML SYRINGE SUBCUT (14:00)
--- NOTE | 2021-08-17 14:22 | PM.EVENT ---
Event Note Date of Service: 08/17/21 Event Note: Pt seen and examined Full consult to follow RAÚL - Renal hypoperfusion Prerenal R/o Obstruction - Pt was on Oxybutynine CKD 4 HTN - Uncontrolled Urine studies pending Gentle Hydration Increase Hydrazine if needed Renal USG as ordered Avoid Nephrotoxins Hold Oxybutynine F/u labs in AM Thx Will follow Dr. Ross
[2021-08-17 14:30] LABS: Creatinine Urine 29.39 mg/dL
--- NOTE | 2021-08-17 16:48 | PC.NURSE ---
attempt to call for report, nurse to call back
[2021-08-17] MEDS: Acetaminophen 325 MG TABLET 650 MG PO (17:00)
[2021-08-17] MEDS: DAPTOmycin 650 MG in 0.9 % Sodium Chloride 50 ML 99.82 MG IV (17:45)
[2021-08-17] MEDS: Gabapentin 100 MG CAPSULE PO (21:44)
[2021-08-17] MEDS: LORazepam 0.5 MG TABLET PO (21:49)
[2021-08-18] VITALS (11 sets, daily range): BP systolic 130–183; BP diastolic 45–76; PULSE 58–89; RESP 17–18; TEMP 36.2–36.8; O2SAT 96–100
[2021-08-18] MEDS: 0.9 % Sodium Chloride 1,000 ML 75 ML IVCONT ×2 (00:17→16:59)
[2021-08-18] MEDS: Acetaminophen 325 MG TABLET 650 MG PO ×2 (03:29→20:06)
[2021-08-18 06:38] LABS: Anion Gap 11 (12-20); Blood Urea Nitrogen 38 mg/dL (9-16); Calcium 8.4 mg/dL (8.4-10.2); Carbon Dioxide 24 mmol/L (22-29); Chloride 113 mmol/L (96-108); Creatinine Clr Calc Pharmacy 15.8; Estimated Glomerular Filt Rate 14; Glucose Random 97 mg/dL (60-115); Potassium 5.4 mmol/L (3.3-5.1); Sodium 143 mmol/L (135-145)
--- NOTE | 2021-08-18 08:47 | HO.PM.IMPN ---
Subjective Subjective Date of Service: 08/18/21 Interval History: feels better, less dizzy no chest pain urinating well, 1200 mL/24h Review of Systems Review of Systems: Yes all other systems are reviewed and are negative Physical Exam Vital Signs: Vital Signs: Last Vital Signs Temp 98.2 F 08/18/21 04:00 Pulse 62 08/18/21 08:04 Resp 17 08/18/21 04:00 BP 183/60 H 08/18/21 08:04 Pulse Ox 97 08/18/21 04:00 Body Mass Index 42.6 Gen: in no acute distress HEENT: sclera anicteric, moist mucus membranes Neck: supple Lungs: clear to auscultation bilaterally Heart: regular rate and rhythm, no murmurs Abd: soft, non-tender, non-distended Ext: no edema Skin: warm/well-perfused Neuro: alert and oriented x3, no focal findings Psych: appropriate affect Objective Data Active Medications Acetaminophen (Acetaminophen 325 Mg Tablet) 650 mg PO Q6H PRN PRN Reason: Pain, Mild (Pain Scale 1-3) Last Admin: 08/18/21 03:29 Dose: 650 mg Documented by: ARISTEO Albuterol Sulfate (Albuterol Sulfate 90 Mcg 8 Gm Inhaler) 2 puff INHALE Q4H PRN PRN Reason: Shortness Of Breath Bupropion HCl (Bupropion Hcl Xl 150 Mg Tab.Er.24h) 150 mg PO DAILY [facility] Last Admin: 08/17/21 07:48 Dose: 150 mg Documented by: PAOLO Carvedilol (Carvedilol 25 Mg Tablet) 25 mg PO BID [facility]; Protocol Last Admin: 08/17/21 21:44 Dose: 25 mg Documented by: ARISTEO Enoxaparin Sodium (Enoxaparin Sodium 30 Mg/0.3 Ml Syringe) 30 mg SUBCUT Q24H [facility] Last Admin: 08/17/21 14:00 Dose: 30 mg Documented by: ZORAIDA Famotidine (Famotidine 20 Mg Tablet) 20 mg PO BID [facility] Last Admin: 08/17/21 21:45 Dose: 20 mg Documented by: ARISTEO Gabapentin (Gabapentin 100 Mg Capsule) 100 mg PO BEDTIME [facility] Last Admin: 08/17/21 21:44 Dose: 100 mg Documented by: ARISTEO Hydralazine HCl (Hydralazine Hcl 50 Mg Tablet) 50 mg PO TID [facility]; Protocol Last Admin: 08/17/21 21:45 Dose: 50 mg Documented by: ARISTEO Lactated Ringer's (Lr) 500 mls @ 999 mls/hr IV .Q31M [facility] Last Infusion: 08/16/21 22:19 Dose: 0 mls/hr Documented by: IGOR Sodium Chloride (Ns) 1,000 mls @ 75 mls/hr IVCONT .[id number] [facility] Last Admin: 08/18/21 00:17 Dose: 75 mls/hr Documented by: ARISTEO Loratadine (Loratadine 10 Mg Tablet) 10 mg PO DAILY PRN PRN Reason: Allergy Symptoms Lorazepam (Lorazepam 0.5 Mg Tablet) 0.5 mg PO BEDTIME PRN PRN Reason: Anxiety Last Admin: 08/17/21 21:49 Dose: 0.5 mg Documented by: ARISTEO Melatonin (Melatonin 3 Mg Tablet) 6 mg PO BEDTIME PRN PRN Reason: Insomnia Pharmacy Consult (Consult Rx Perform Med Rec) 1 each MISCELLANE ONCE PRN PRN Reason: Consult order Senna (Sennosides 8.6 Mg Tablet) 17.2 mg PO BEDTIME PRN PRN Reason: Constipation Senna (Sennosides 8.6 Mg Tablet) 17.2 mg PO DAILY PRN PRN Reason: Constipation Sodium Chloride (0.9 % Sodium Chloride Flush 3 Ml Syringe) 3 ml IVFLUSH QSHIFT [facility] Last Admin: 08/18/21 07:46 Dose: Not Given Documented by: NOAH Non-Admin Reason: IV Running Labs CBC & Chem 7: 08/17/21 06:36 08/18/21 05:40 Labs: Laboratory Results - last 24 hr 08/17/21 08/18/21 14:09 05:40 Anion Gap 11 L Estim Creat Clear Calc 15.8 Estimated GFR 14 Random Glucose 97 Calcium 8.4 Ur Random Sodium 56.0 Urine Creatinine 29.39 Impressions Renal Ultrasound 08/17/21 13:30 IMPRESSION: 1. There is bilateral medical renal disease with decreased cortical medullary differentiation. 2. There is no Doppler evidence of renal artery stenosis. Renal Ultrasound 08/17/21 13:30 IMPRESSION: 1. There is bilateral medical renal disease with decreased cortical medullary differentiation. 2. There is no Doppler evidence of renal artery stenosis. Microbiology Microbiology Results: Microbiology 08/16/21 15:51 Blood Culture - Final Blood - Venous Coag negative Staphylococcus 08/16/21 15:51 Blood Culture - Preliminary Blood - Venous No growth after 24 hours. Assessment and Plan (1) Acute kidney injury superimposed on chronic kidney disease: Status: Acute Assessment and Plan: hospital d#3 85yo F with HTN, HLD, COPD, vertigo, CKD4 presenting with dizziness, admitted with RAÚL # RAÚL/CKD4 - improving with isotonic fluid hydration, monitor BMP, renal US with no signs of obstruction though FENa 4.8%, oxybutynin discontinued, Nephro following # hyperK - will give Lokelma # dizziness - was hypertensive but had relative orthostatic hypotension; continue IV fluid hydration # Tn-I elevation - flat, asymptomatic; likely due to renal dysfunction # GPC bacteremia, not - 1/2 BCx growing CoNS -> contaminant. d/c daptomycin # HTN - continue carvedilol, hydralazine # HLD - continue statin # neuropathy - continue gabapentin # COPD - prn albuterol # mood disorder - bupropion, lorazepam # VTE ppx - LMWH # dispo - PT eval Quality Stroke Does the patient have a stroke diagnosis?: No VTE Prior VTE?: No VTE Risk Level:: Medical - moderate - high VTE Device Contraindication: Treatment Not Indicated VTE Drug Contraindication: N/A - Med Ordered
[2021-08-18] MEDS: hydrALAZINE HCl 50 MG TABLET PO ×3 (10:15→20:07)
[2021-08-18] MEDS: Famotidine 20 MG TABLET PO ×2 (10:15→20:07)
[2021-08-18] MEDS: Sodium Zirconium Cyclosilicate 10 GM POWD.PACK PO (10:15)
[2021-08-18] MEDS: buPROPion HCl XL 150 MG TAB.ER.24H PO (10:15)
[2021-08-18] MEDS: carvediloL 25 MG TABLET PO ×2 (10:15→20:06)
--- NOTE | 2021-08-18 14:34 | MHC.CM.PN ---
CM MET WITH PT WHO REPORTS SHE LIVES ALONE AND IS INDEPENDENT WITH ADLS. PT REPORTS SHE HAS A HOMEMAKER AND LIFELINE SERVICES ONLY. PT REPORTS SHE HAS A CANE AND WALKER AT HOME. PT CONFIRMS HER PCP IS ILDEFONSO SCHWARZ PT HAS A HCP ON FILE SHE REPORTS IS ACCURATE. IMM DELIVERED CURRENT DC PLAN IS HOME WITH [employer] [employer] [facility] TO TRANSPORT
[2021-08-18] MEDS: Enoxaparin Sodium 30 MG/0.3 ML SYRINGE SUBCUT (14:49)
--- NOTE | 2021-08-18 16:01 | P.PNNP_ITS ---
Subjective Subjective Date of Service: 08/18/21 Interval history: feels better, less dizzy no chest pain urinating out put is fair -200 mL/24h Physical Exam Vital Signs: Vital Signs: Last Vital Signs Temp 97.6 F 08/18/21 15:17 Pulse 59 08/18/21 15:17 Resp 17 08/18/21 15:17 BP 173/61 H 08/18/21 15:17 Pulse Ox 97 08/18/21 15:17 Body Mass Index 42.6 Gen: in no acute distress HEENT: sclera anicteric, moist mucus membranes Neck: supple Lungs: clear to auscultation bilaterally Heart: regular rate and rhythm, no murmurs Abd: soft, non-tender, non-distended Ext: no edema Skin: warm/well-perfused Neuro: alert and oriented x3, no focal findings Psych: appropriate affect Objective Data Labs CBC & Chem 7: 08/17/21 06:36 08/18/21 05:40 Labs: Laboratory Results - last 24 hr 08/18/21 05:40 Sodium 143 Potassium 5.4 H Chloride 113 H Carbon Dioxide 24 Anion Gap 11 L BUN 38 H Creatinine 3.19 H Estim Creat Clear Calc 15.8 Estimated GFR 14 Random Glucose 97 Calcium 8.4 Microbiology Microbiology Results: Microbiology 08/16/21 15:51 Blood - Venous Blood Culture - Final Coag negative Staphylococcus 08/16/21 15:51 Blood - Venous Blood Culture - Preliminary No growth after 24 hours. Procedures Date of Service Date of Service: 08/18/21 Assessment & Plan Assessment and plan (1) Acute kidney injury superimposed on chronic kidney disease: Status: Acute Assessment and Plan: RAÚL - Renal hypoperfusion Prerenal We ruled out Obstruction - No [place] on USG Pt was on Oxybutynine CKD 4 at baseline HTN - Uncontrolled Urine studies reviewed Gentle Hydration Increase Hydrazine to 100 mg TID Avoid Nephrotoxins Hold Oxybutynine F/u labs in AM Thx Will follow Dr. Ross (2) Acute hyperkalemia: Status: Acute (3) HTN (hypertension): Status: Acute Time Spent With Patient Time: Total time spent is greater than 50% in coordination of care (as documented) at patient's floor/unit and/or counseling patient: Progress Note: Quality Stroke Does the patient have a stroke diagnosis?: No
[2021-08-18] MEDS: HYDROcodone Bit/Acetam 5/325 TABLET 1 TAB PO (18:05)
[2021-08-18] MEDS: Atorvastatin Calcium 80 MG TABLET PO (20:06)
[2021-08-18] MEDS: LORazepam 0.5 MG TABLET PO (20:07)
[2021-08-18] MEDS: 0.9 % Sodium Chloride Flush 3 ML SYRINGE IVFLUSH (20:08)
[2021-08-18] MEDS: Gabapentin 100 MG CAPSULE PO (20:08)
[2021-08-19] VITALS (10 sets, daily range): BP systolic 130–173; BP diastolic 54–81; PULSE 60–71; RESP 16–20; TEMP 36.1–36.7; O2SAT 94–98
--- NOTE | 2021-08-19 04:01 | CONS_ITS ---
DATE OF SERVICE: 08/17/2021 REASON FOR CONSULTATION: Consult requested by the medical team to evaluate and help in management of patient with acute kidney injury. HISTORY OF PRESENT ILLNESS: The patient is an 85-year-old female with past medical history of hypertension, hyperlipidemia, chronic kidney disease at baseline, stage 4, who presented to the hospital with complaints of dizziness. The patient has had complaints of being tired and weak for a few days before presentation. She also complained of dizziness with room spinning. She did not have any falls. She is not a very good historian. Most of the history was obtained from the patient's medical record. She denies any loss of consciousness. There is no chest pain or palpitation. No fever or chills. No dysuria, urgency of urination, frequent urination. There is no diarrhea, nausea, vomiting. She was evaluated in the ER, and CT of the head did not show any acute findings. Labs showed the patient's creatinine was elevated. Her urine did not show any signs of UTI. She was admitted to the hospital for further evaluation and management. Renal consult has been requested for management of her renal insufficiency. Her admission BUN and creatinine were 43/3.7. Her baseline creatinine has been ranging around 2.5 to 3.0. REVIEW OF SYSTEMS: As noted above. Other system review negative. PAST MEDICAL HISTORY: History of COPD, history of hypercholesteremia, hypertension, chronic kidney disease stage 4, looks like she has seen Dr. Renee in the past but it is unclear when she was last seen. PERSONAL AND SOCIAL HISTORY: The patient at present does not smoke, drink, or use drugs. ALLERGIES: THE PATIENT DOES NOT HAVE ANY ALLERGIES. MEDICATIONS: As an outpatient and inpatient were reviewed. PHYSICAL EXAMINATION: GENERAL: The patient is resting in bed. Awake, alert, oriented x3. She is obese. VITAL SIGNS: Blood pressure was 194/51, pulse 61, afebrile. HEENT: Shows pupils equal bilaterally and reactive to light. No jugular venous distention is noted. NECK: Supple. CARDIOVASCULAR SYSTEM: S1, S2 without rub. RESPIRATORY SYSTEM: Air entry decreased in bases. No crepitation or rhonchi is noted. ABDOMEN: Obese, soft. Bowel sounds normal. EXTREMITIES: Showed chronic changes without significant edema. NEURO: Essentially nonfocal. LABORATORY DATA: Labs done recently: Sodium 142, potassium 5.2, chloride 110, CO2 of 25, BUN 41, creatinine 3.6, estimated GFR 12, hemoglobin 10.1, hematocrit 36.3, WBC 9.2, platelet 166. TSH 0.02, albumin 3.5. Troponin was 19.3. Urinalysis showed yellow urine, specific gravity 1.020, protein was trace. IMPRESSION: 1. An 85-year-old female with acute kidney injury. Acute kidney injury in this patient is likely secondary to renal hypoperfusion in the setting of prerenal state. She did present with dizziness, but it is unclear if she had hypotension at home. Upon review of home medications, she was not on any nephrotoxic agents. She was on oxybutynin, which can cause urinary retention. Based on the urinalysis, I doubt the patient has acute GN/interstitial disease. 2. Chronic kidney disease stage 4, at baseline. Baseline creatinine ranging from 2.5-3.0 in the setting of long-term hypertension, likely hypertensive nephrosclerosis. 3. Dizziness, which is being worked up by the medical team. 4. Hyperkalemia. Denied. 5. Hypertension. Blood pressure is elevated. RECOMMENDATION: At this juncture, I am liberty to order spot urine for electrolytes, protein, and creatinine. She is COVID negative based on the testing done in the ER. I agree with continuation of IV fluids for this patient. I recommend switching lactated Ringer to normal saline as potassium level is in the high side. I recommend holding off on oxybutynin for now and increasing the dose of hydralazine to 100 mg 3 times a day for better blood pressure control. The hospitalist team has already ordered a renal ultrasound and follow the result to make sure she does not have obstructive uropathy. We will continue to follow the patient closely. Thank you for allowing me to participate in medical management of the patient. MD YEISON Marie/PATRICIA / [phone]
[2021-08-19 04:15] LABS: Vitamin B12 332 pg/mL (200-900)
[2021-08-19] MEDS: 0.9 % Sodium Chloride 1,000 ML 75 ML IVCONT ×2 (04:27→18:27)
[2021-08-19] MEDS: Acetaminophen 325 MG TABLET 650 MG PO ×2 (04:27→20:32)
[2021-08-19] MEDS: buPROPion HCl XL 150 MG TAB.ER.24H PO (08:27)
[2021-08-19] MEDS: 0.9 % Sodium Chloride Flush 3 ML SYRINGE IVFLUSH ×2 (08:28→20:34)
[2021-08-19] MEDS: carvediloL 25 MG TABLET PO ×2 (08:28→20:38)
[2021-08-19] MEDS: hydrALAZINE HCl 50 MG TABLET PO ×3 (08:28→20:36)
[2021-08-19] MEDS: Famotidine 20 MG TABLET PO ×2 (08:28→20:33)
--- NOTE | 2021-08-19 08:44 | HO.PM.IMPN ---
Subjective Subjective Date of Service: 08/19/21 Interval History: still c/o lightheadedness/dizziness when sitting or standing, not when lying. denies vertigo. mild headache no chest pain no dyspnea Review of Systems Review of Systems: Yes all other systems are reviewed and are negative Physical Exam Vital Signs: Vital Signs: Last Vital Signs Temp 97 F 08/19/21 07:37 Pulse 61 08/19/21 08:17 Resp 20 08/19/21 07:37 BP 130/70 08/19/21 08:17 Pulse Ox 95 08/19/21 08:17 Body Mass Index 42.6 Gen: in no acute distress HEENT: sclera anicteric, moist mucus membranes Neck: supple Lungs: clear to auscultation bilaterally Heart: regular rate and rhythm, no murmurs Abd: soft, non-tender, non-distended Ext: no edema Skin: warm/well-perfused Neuro: alert and oriented x3, no focal findings Psych: appropriate affect Objective Data Active Medications Acetaminophen (Acetaminophen 325 Mg Tablet) 650 mg PO Q6H PRN PRN Reason: Pain, Mild (Pain Scale 1-3) Last Admin: 08/19/21 04:27 Dose: 650 mg Documented by: RACHAEL Albuterol Sulfate (Albuterol Sulfate 90 Mcg 8 Gm Inhaler) 2 puff INHALE Q4H PRN PRN Reason: Shortness Of Breath Atorvastatin Calcium (Atorvastatin Calcium 80 Mg Tablet) 80 mg PO BEDTIME [facility] Last Admin: 08/18/21 20:06 Dose: 80 mg Documented by: RACHAEL Bupropion HCl (Bupropion Hcl Xl 150 Mg Tab.Er.24h) 150 mg PO DAILY [facility] Last Admin: 08/19/21 08:27 Dose: 150 mg Documented by: YBOANI Carvedilol (Carvedilol 25 Mg Tablet) 25 mg PO BID [facility]; Protocol Last Admin: 08/19/21 08:28 Dose: 25 mg Documented by: YOBANI Enoxaparin Sodium (Enoxaparin Sodium 30 Mg/0.3 Ml Syringe) 30 mg SUBCUT Q24H [facility] Last Admin: 08/18/21 14:49 Dose: 30 mg Documented by: NOAH Famotidine (Famotidine 20 Mg Tablet) 20 mg PO BID [facility] Last Admin: 08/19/21 08:28 Dose: 20 mg Documented by: YOBANI Gabapentin (Gabapentin 100 Mg Capsule) 100 mg PO BEDTIME [facility] Last Admin: 08/18/21 20:08 Dose: 100 mg Documented by: RACHAEL Hydralazine HCl (Hydralazine Hcl 50 Mg Tablet) 50 mg PO TID [facility]; Protocol Last Admin: 08/19/21 08:28 Dose: 50 mg Documented by: YOBANI Sodium Chloride (Ns) 1,000 mls @ 75 mls/hr IVCONT .[id number] [facility] Last Admin: 08/19/21 04:27 Dose: 75 mls/hr Documented by: RACHAEL Loratadine (Loratadine 10 Mg Tablet) 10 mg PO DAILY PRN PRN Reason: Allergy Symptoms Lorazepam (Lorazepam 0.5 Mg Tablet) 0.5 mg PO BEDTIME PRN PRN Reason: Anxiety Last Admin: 08/18/21 20:07 Dose: 0.5 mg Documented by: RACHAEL Melatonin (Melatonin 3 Mg Tablet) 6 mg PO BEDTIME PRN PRN Reason: Insomnia Pharmacy Consult (Consult Rx Perform Med Rec) 1 each MISCELLANE ONCE PRN PRN Reason: Consult order Senna (Sennosides 8.6 Mg Tablet) 17.2 mg PO BID PRN PRN Reason: constipation Sodium Chloride (0.9 % Sodium Chloride Flush 3 Ml Syringe) 3 ml IVFLUSH QSHIFT [facility] Last Admin: 08/19/21 08:28 Dose: 3 ml Documented by: YOBANI Labs CBC & Chem 7: 08/17/21 06:36 08/18/21 05:40 Labs: Laboratory Results - last 24 hr 08/17/21 07:05 Vitamin B12 [address] 08/16/21 14:56 IMPRESSION: No evidence of hemorrhage or other acute intracranial pathology compared to 11/24/2019. Chest X-Ray 08/16/21 14:57 IMPRESSION: No acute cardiopulmonary process. Renal Ultrasound 08/17/21 13:30 IMPRESSION: 1. There is bilateral medical renal disease with decreased cortical medullary differentiation. 2. There is no Doppler evidence of renal artery stenosis. Renal Ultrasound 08/17/21 13:30 IMPRESSION: 1. There is bilateral medical renal disease with decreased cortical medullary differentiation. 2. There is no Doppler evidence of renal artery stenosis. Microbiology Microbiology Results: Microbiology 08/16/21 15:51 Blood Culture - Preliminary Blood - Venous No growth after 48 hours. 08/16/21 15:51 Blood Culture - Final Blood - Venous Coag negative Staphylococcus Assessment and Plan (1) Acute kidney injury superimposed on chronic kidney disease: Status: Acute Assessment and Plan: hospital d#4 85yo F with HTN, HLD, COPD, vertigo, CKD4 presenting with dizziness, admitted with RAÚL # RAÚL/CKD4 - continues to improve with isotonic fluid hydration, monitor BMP, renal US with no signs of obstruction though FENa 4.8%, oxybutynin discontinued, Nephro following # hyperK - will give Lokelma 10mg tid x3 doses, recheck BMP in am # dizziness - was hypertensive but had relative orthostatic hypotension; continue IV fluid hydration and recheck orthostatic vital signs # Tn-I elevation - flat, asymptomatic; likely due to renal dysfunction # GPC bacteremia, not - 1/2 BCx growing CoNS -> contaminant. d/c daptomycin # HTN - continue carvedilol, hydralazine- increase dose of latter if BP not well-controlled # HLD - continue statin # neuropathy - continue gabapentin # COPD - prn albuterol # mood disorder - bupropion, lorazepam # VTE ppx - LMWH # dispo - home with VNA, possibly tomorrow Quality Stroke Does the patient have a stroke diagnosis?: No VTE Prior VTE?: No VTE Risk Level:: Medical - moderate - high VTE Device Contraindication: Treatment Not Indicated VTE Drug Contraindication: N/A - Med Ordered
--- NOTE | 2021-08-19 09:23 | P.CDIC_ITS ---
CDI Concurrent Query Documentation Clarification: PHYSICIAN'S DOCUMENTATION REQUEST Date of Query: 08/19/2124 Patient Name: Naomy Doty Admit Date: 08/16/21 Dear Doctor, A review of the medical record indicates additional documentation may be needed. Please review below and update the documentation accordingly. Risk Factors/Clinical Indicators/Treatments Body mass index: 42.6 If possible, please provide an associated diagnosis related to the abnormal BMI, such as: For a BMI >= 40: * Overweight * Obesity * Due to excess calories * Drug induced * Due to other cause * Severe or Morbid Obesity Use of terms such as suspected, likely, concern for, or probable (associated with a specific diagnosis that is being evaluated, monitored, or treated as if it exists) are acceptable and can be coded in the inpatient setting, when documented at the time of discharge. Thank you, Rona Leblanc [facility], [facility]IS Extension: [phone] Please use your independent medical judgment in providing your response. THIS QUERY IS PART OF THE PERMANENT MEDICAL RECORD Provider Response: Morbid Obesity Other Diagnosis: morbid obesity
--- NOTE | 2021-08-19 10:13 | MHC.CM.PN ---
Addendum entered by Park Franco 08/19/21 10:16: PER REVIEW OF [employer], PATIENT IS ALREADY ACTIVE WITH [facility] FOR RN SKILLS, PT, AND OT Original Note: THIS MUSIC PROFESSOR MET WITH PATIENT TO OBTAIN PREFERENCE FOR [facility] SERVICES, WELL WHICH AGENCY. PATIENT CHOOSES [facility]. REFERRAL NOW PLACED. PER PATIENT, PLAN IS DISCHARGE HOME TOMORROW (08/20/21)
[2021-08-19] MEDS: Sodium Zirconium Cyclosilicate 10 GM POWD.PACK PO ×3 (10:29→20:34)
--- NOTE | 2021-08-19 11:17 | PM.PNNEP ---
Subjective Subjective Date of Service: 08/19/21 Physical Exam Vital Signs: Vital Signs: Last Vital Signs Temp 97 F 08/19/21 07:37 Pulse 68 08/19/21 10:16 Resp 20 08/19/21 07:37 BP 130/60 08/19/21 10:16 Pulse Ox 95 08/19/21 08:17 Body Mass Index 42.6 Neck: Neck: Yes supple Resp: Effort & Inspection: normal respiratory effort Auscultation: no crackles Cardio: Jugular venous distension: no JVD Rate: not tachycardic GI: Palpation (GI): Soft to palpation Auscultation: normal bowel sounds Neuro: Motor exam (neuro): no asterixis Objective Data Labs CBC & Chem 7: 08/17/21 06:36 08/18/21 05:40 Labs: Laboratory Results - last 24 hr 08/17/21 07:05 Vitamin B12 332 Microbiology Microbiology Results: Microbiology 08/16/21 15:51 Blood - Venous Blood Culture - Preliminary No growth after 48 hours. 08/16/21 15:51 Blood - Venous Blood Culture - Final Coag negative Staphylococcus Assessment & Plan Time Spent With Patient Time: Total time spent is greater than 50% in coordination of care (as documented) at patient's floor/unit and/or counseling patient: Progress Note: Quality Stroke Does the patient have a stroke diagnosis?: No
[2021-08-19] MEDS: Enoxaparin Sodium 30 MG/0.3 ML SYRINGE SUBCUT (14:39)
[2021-08-19] MEDS: Sennosides 8.6 MG TABLET 17.2 MG PO (14:54)
--- NOTE | 2021-08-19 14:57 | P.CNID_ITS ---
History of Present Illness Data of Consult Service Date: 08/19/21 Requesting physician: Severino Ngo Primary Care Provider: Joshua Schaeffer MD [facility] Reason for consult: bacteremia?Daptomycin needed She presents with weakness and dizziness for a day She has no fever or chills She has just been released from Rehab She has 1/2 gram positive cocci blood Review of Systems Review of Systems: Yes all other systems are reviewed and are negative PMFSH Past Medical History Medical History (Updated 08/19/21 @ 15:00 by Savana Hastings MD) Bacteremia COPD (chronic obstructive pulmonary disease) High cholesterol HTN (hypertension) Kidney disease Social History Social History Household Members: None Housing: Apartment Do you presently have visiting nurse or other home services: Yes Patient Tobacco Use Status: Never used Tobacco service: No Current occupational status: retired Meds Allergies Allergy/AdvReac Type Severity Reaction Status Date / Time No Known Allergies Allergy Verified 08/16/21 15:17 Active Medications: Current Medications Acetaminophen (Acetaminophen 325 Mg Tablet) 650 mg PO Q6H PRN PRN Reason: Pain, Mild (Pain Scale 1-3) Last Admin: 08/19/21 04:27 Dose: 650 mg Documented by: Albuterol Sulfate (Albuterol Sulfate 90 Mcg 8 Gm Inhaler) 2 puff INHALE Q4H PRN PRN Reason: Shortness Of Breath Atorvastatin Calcium (Atorvastatin Calcium 80 Mg Tablet) 80 mg PO BEDTIME [facility] Last Admin: 08/18/21 20:06 Dose: 80 mg Documented by: Bupropion HCl (Bupropion Hcl Xl 150 Mg Tab.Er.24h) 150 mg PO DAILY [facility] Last Admin: 08/19/21 08:27 Dose: 150 mg Documented by: Carvedilol (Carvedilol 25 Mg Tablet) 25 mg PO BID [facility]; Protocol Last Admin: 08/19/21 08:28 Dose: 25 mg Documented by: Enoxaparin Sodium (Enoxaparin Sodium 30 Mg/0.3 Ml Syringe) 30 mg SUBCUT Q24H [facility] Last Admin: 08/19/21 14:39 Dose: 30 mg Documented by: Famotidine (Famotidine 20 Mg Tablet) 20 mg PO BID [facility] Last Admin: 08/19/21 08:28 Dose: 20 mg Documented by: Gabapentin (Gabapentin 100 Mg Capsule) 100 mg PO BEDTIME [facility] Last Admin: 08/18/21 20:08 Dose: 100 mg Documented by: Hydralazine HCl (Hydralazine Hcl 50 Mg Tablet) 50 mg PO TID [facility]; Protocol Last Admin: 08/19/21 14:39 Dose: 50 mg Documented by: Sodium Chloride (Ns) 1,000 mls @ 75 mls/hr IVCONT .[id number] [facility] Last Admin: 08/19/21 04:27 Dose: 75 mls/hr Documented by: Loratadine (Loratadine 10 Mg Tablet) 10 mg PO DAILY PRN PRN Reason: Allergy Symptoms Lorazepam (Lorazepam 0.5 Mg Tablet) 0.5 mg PO BEDTIME PRN PRN Reason: Anxiety Last Admin: 08/18/21 20:07 Dose: 0.5 mg Documented by: Melatonin (Melatonin 3 Mg Tablet) 6 mg PO BEDTIME PRN PRN Reason: Insomnia Pharmacy Consult (Consult Rx Perform Med Rec) 1 each MISCELLANE ONCE PRN PRN Reason: Consult order Senna (Sennosides 8.6 Mg Tablet) 17.2 mg PO BID PRN PRN Reason: constipation Last Admin: 08/19/21 14:54 Dose: 17.2 mg Documented by: Sodium Chloride (0.9 % Sodium Chloride Flush 3 Ml Syringe) 3 ml IVFLUSH QSHIFT [facility] Last Admin: 08/19/21 08:28 Dose: 3 ml Documented by: Sodium Zirconium Cyclosilicate (Sodium Zirconium Cyclosilicate 10 Gm Powd.Pack) 10 gm PO TID [facility] Stop: 08/19/21 21:01 Last Admin: 08/19/21 14:39 Dose: 10 gm Documented by: Home Medications Medication Instructions Recorded Confirmed Last Taken Type acetaminophen 325 mg tablet 650 mg PO Q4H PRN 08/16/21 08/16/21 Unknown History albuterol sulfate 90 mcg/actuation 2 puff INHALATION Q4H PRN 08/16/21 08/16/21 Unknown History aerosol inhaler atorvastatin 80 mg tablet 80 mg PO BEDTIME 08/16/21 08/16/21 Unknown History bupropion HCl 150 mg 24 hr tablet, 1 tab PO DAILY 08/16/21 08/16/21 Unknown History extended release carvedilol 25 mg tablet 1 tab PO BID 08/16/21 08/16/21 Unknown History famotidine 20 mg tablet 1 tab PO BID 08/16/21 08/16/21 Unknown History gabapentin 100 mg capsule 1 cap PO BEDTIME 08/16/21 08/16/21 Unknown History hydralazine 50 mg tablet 1 tab PO TID 08/16/21 08/16/21 Unknown History loratadine 10 mg tablet 10 mg PO DAILY PRN 08/16/21 08/16/21 Unknown History lorazepam 0.5 mg tablet 1 tab PO BEDTIME PRN 08/16/21 08/16/21 Unknown History oxybutynin chloride 5 mg tablet 5 mg PO DAILY 08/16/21 08/16/21 Unknown History sennosides 8.6 mg tablet (senna) 17.2 mg PO DAILY PRN 08/16/21 08/16/21 Unknown History sodium bicarbonate 325 mg tablet 1 tab PO TID 08/16/21 08/16/21 Unknown History umeclidinium 62.5 mcg/actuation 1 puff INHALATION DAILY 08/16/21 08/16/21 Unknown History blister powder for inhalation (Incruse Ellipta) Physical Exam Vital Signs: Vital Signs: Last Vital Signs Temp 97.5 F 08/19/21 11:55 Pulse 66 08/19/21 11:55 Resp 18 08/19/21 11:55 BP 138/58 L 08/19/21 11:55 Pulse Ox 96 08/19/21 11:55 Body Mass Index 42.6 Const: General: cooperative HENMT: Head: Yes normal to inspection Mouth: Normal oral and palatal mucosa present Eyes: General: appearance normal, both eyes and all related structures Resp: Effort & Inspection: normal respiratory effort Cardio: Rate: regular rate Rhythm: regular rhythm GI: Palpation (GI): Soft to palpation and nontender Skin: General skin exam: no rashes or lesions noted Extrem: General: Yes normal to inspection Results Labs CBC & Chem 7: 08/17/21 06:36 08/18/21 05:40 Microbiology Microbiology Results: Microbiology 08/16/21 15:51 Blood - Venous Blood Culture - Preliminary No growth after 48 hours. 08/16/21 15:51 Blood - Venous Blood Culture - Final Coag negative Staphylococcus Assessment and Plan (1) Weakness: Status: Acute (2) Acute kidney injury superimposed on chronic kidney disease: Status: Acute (3) Bacteremia: Status: Acute She has coagulase negative bacteremia Daptomycin would work if true bacteremia,but agree with stopping it as bacteremia is contaminant
[2021-08-19] MEDS: LORazepam 0.5 MG TABLET PO (20:33)
[2021-08-19] MEDS: Atorvastatin Calcium 80 MG TABLET PO (20:33)
[2021-08-19] MEDS: Gabapentin 100 MG CAPSULE PO (20:34)
[2021-08-20] VITALS: BP 122/76; PULSE 78; RESP 16; TEMP 36.2; O2SAT 97
[2021-08-20 04:00] VITALS: BP 137/79; PULSE 71; RESP 17; TEMP 36.3; O2SAT 97
[2021-08-20 05:55] LABS: Anion Gap 10 (12-20); Blood Urea Nitrogen 31 mg/dL (9-16); Calcium 8.1 mg/dL (8.4-10.2); Carbon Dioxide 23 mmol/L (22-29); Chloride 116 mmol/L (96-108); Estimated Glomerular Filt Rate 16; Glucose Random 107 mg/dL (60-115); Potassium 4.4 mmol/L (3.3-5.1); Sodium 145 mmol/L (135-145)
[2021-08-20] MEDS: 0.9 % Sodium Chloride 1,000 ML 75 ML IVCONT (06:29)
[2021-08-20 08:00] VITALS: BP 140/66; PULSE 64; RESP 18; TEMP 36.7; O2SAT 94
[2021-08-20 09:00] VITALS: BP 140/66; PULSE 64
[2021-08-20] MEDS: buPROPion HCl XL 150 MG TAB.ER.24H PO (09:00)
[2021-08-20] MEDS: hydrALAZINE HCl 50 MG TABLET PO (09:00)
[2021-08-20] MEDS: carvediloL 25 MG TABLET PO (09:00)
[2021-08-20] MEDS: Famotidine 20 MG TABLET PO (09:00)
[2021-08-20 09:09] VITALS: BP 140/66; PULSE 64
--- NOTE | 2021-08-20 10:33 | P.DS_ITS ---
DS: Providers Provider Date of Service: 08/20/21 Date of admission: 08/16/21 21:52 Date of discharge: 08/20/21 Primary care physician: Joshua Schaeffer MD Consults: 08/16/21 21:52 Consult to Nephrology Routine Consulting Provider: Antonio Dobbins Reason for consultation: RAÚL on CKD 08/17/21 15:11 Consult to Infectious Diseases Stat Consulting Provider: Savana Hastings Reason for consultation: NEW DAPTOMYCIN ORDER DS: Diagnosis Discharge Diagnosis (1) Weakness: Status: Acute (2) Acute kidney injury superimposed on chronic kidney disease: Status: Acute (3) Bacteremia: Status: Acute DS: Summary Hospital Course Hospital Course: 85yo F with HTN, HLD, COPD, vertigo, CKD4 presenting with dizziness, admitted with RAÚL. hopsital course: Patient came with a KI on ckd and hyperkalemia: Subsequently treated with hydration and also received keep p.o. Kayexalate: Subsequently his her renal function seems to be near baseline. Hyperkalemia resolved. currently her cr is around 2.8 range similar to 2019 ( bmp). Advised for adequate p.o. hydration. Further management outpatient as per PCP and Nephrology, repeat BMP in 1 week with pcp. Patient has 1/2 blood cultures Gram-negative staff of aureus which seems it admission antibiotics, id saw the patient and discussed with infectious disease upon discharge also the culture seems to be contamination-no fever or no new symptoms. Elevated troponin thought to be related to Raúl the is okay on CKD-decrease clearance. Dizziness was thought to be related to relative orthostasis and oxybutynin: Oxybutynin was for if placed on hold for next 2 days, patient is asymptomatic now. Further management outpatient as per PCP. Orthostasis education was also given. Above management discussed with the patient in detail length she understand and in agreement with the above plan, time spent 50 minutes and 50% time spent on counseling. Significant findings: As above. Procedures performed: None. Treatment and response: As above. Complications: None. Time Spent with Patient Time attestation: Total time spent providing and/or coordinating discharge services: Discharge coordination time: Greater than 30 minutes Quality: Stroke Does the patient have a stroke diagnosis?: No Physical Exam Vital Signs: Vital Signs: Last Vital Signs Temp 98.1 F 08/20/21 08:00 Pulse 64 08/20/21 09:09 Resp 18 08/20/21 08:00 BP 140/66 H 08/20/21 09:09 Pulse Ox 94 08/20/21 08:00 Body Mass Index 42.6 Gen: in no acute distress HEENT: sclera anicteric, moist mucus membranes Neck: supple Lungs: clear to auscultation bilaterally Heart: regular rate and rhythm, no murmurs Abd: soft, non-tender, non-distended Ext: no edema Skin: warm/well-perfused Neuro: alert and oriented x3, no focal findings Psych: appropriate affect DS: Data Data Completed and Pending Labs on day of discharge: Laboratory Results - last 24 hr 08/20/21 05:25 Sodium 145 Potassium 4.4 Chloride 116 H Carbon Dioxide 23 Anion Gap 10 L BUN 31 H Creatinine 2.80 H Estim Creat Clear Calc 18.0 Estimated GFR 16 Random Glucose 107 Calcium 8.1 L Preliminary micro results at discharge 08/16/21 15:51 Blood Culture - Preliminary Blood - Venous No growth after 48 hours. Discharge Plan Discharge Patient Disposition: Home Health Service Discharge Diagnosis: raúl , hyperkalemia Referrals: Rivka HUBBARD [Outside] - 1 Week Joshua Schaeffer MD [Primary Care Provider] - 1 Week Antonio Dobbins MD [Physician] - 1 Week (follow up in 2week.) Discharge Medications: New (DME) T.E.D. Knee [id number] Misc See Rx Instructions .Route Qty: 2 RF: 0 Continued carvedilol 25 mg tablet 1 tab PO BID RF: 0 sodium bicarbonate 325 mg tablet 1 tab PO TID RF: 0 famotidine 20 mg tablet 1 tab PO BID RF: 0 lorazepam 0.5 mg tablet 1 tab PO BEDTIME PRN (Reason: Anxiety) RF: 0 hydralazine 50 mg tablet 1 tab PO TID RF: 0 gabapentin 100 mg capsule 1 cap PO BEDTIME RF: 0 bupropion HCl 150 mg tablet extended release 24 hr 1 tab PO DAILY RF: 0 Incruse Ellipta 62.5 mcg/actuation blister with device 1 puff inhalation DAILY RF: 0 sennosides [senna] 8.6 mg Tablet 17.2 mg PO DAILY PRN (Reason: Constipation) RF: 0 acetaminophen 325 mg Tablet 650 mg PO Q4H PRN (Reason: Pain (Scale Score 1-3)) RF: 0 albuterol sulfate 90 mcg/actuation Hfa Aerosol Inhaler 2 puff INHALATION Q4H PRN (Reason: Shortness Of Breath) RF: 0 loratadine 10 mg Tablet 10 mg PO DAILY PRN (Reason: Allergy Symptoms) RF: 0 atorvastatin 80 mg Tablet 80 mg PO BEDTIME RF: 0 Held oxybutynin chloride 5 mg Tablet 5 mg PO DAILY RF: 0 Hold Instructions: Resume on 08/22/21. dizziness improving , start in 2 days Discharge Orders: Discharge Order (Routine); Ordered 08/20/21 Ordered By: Margoth Metcalf Diet: low fat, low cholesterol and low salt diet Activity on Discharge: As tolerated Stand Alone Forms: Patient Portal Discharge page Other Ambulatory Orders: Basic Metabolic Panel Fasting (Routine) Timeframe: 1 Week Facility: [facility] - Location: Laboratory Ordered By: Margoth Metcalf Activity Restrictions/Additional Instructions: Wound care instruction: Wash under abdominal folds with soap and water pat dry the add interdry to abdominal folds. may use same cloth up to 5 days unless soi led or saturated. Care Plan Goals: Patient came with a KI and hyperkalemia: Subsequently treated with hydration and also received keep p.o. Kayexalate: Subsequently his her renal function seems to be near baseline. Hyperkalemia resolved. Advised for adequate p.o. hydration. Further management outpatient as per PCP and Nephrology, repeat BMP in 1 week with pcp. Patient has 1/2 blood cultures Gram-negative staff of aureus which seems it admission antibiotics, id saw the patient and discussed with infectious disease upon discharge also the culture seems to be contamination-no fever or no new symptoms. Elevated troponin thought to be related to Raúl the is okay on CKD-decrease clearance. Dizziness was thought to be related to relative orthostasis and oxybutynin: O xybutynin was for if placed on hold for next 2 days, patient is asymptomatic now. Further management outpatient as per PCP. Orthostasis education was also given. Health Concerns: As above. Plan of Treatment: As above. Assessment: As above. Discharge Date/Time: 08/20/21 11:40
--- NOTE | 2021-08-20 10:35 | W.MHC.F2F ---
Service Date Service Date: 08/20/21 Encounter Date of encounter: 08/20/21 Encounter: AKA on CKD, hyperkalemia. Reasons for Services MD Overseeing Care: Joshua Schaeffer Homebound: Leaving the home is medically contraindicated at this time without the asist of a device and/or another person due th the listed conditions above and below. Homebound supporting statement: Patient is generalized weak has multiple comorbidities including ckd and need help to go to appointments Certification: Based on the above findings, I certify that this patient is confined to the home and needs intermittent residential care, physical therapy and/or speech therapy, or continues to need occupational therapy. The patient is under my care, and I have initiated the establishment of the plan of care. The patient will be followed by a physician who will periodically review the plan of care.
--- NOTE | 2021-08-20 11:40 | PM.PNNEP ---
Subjective Subjective Date of Service: 08/20/21 Principal diagnosis: pt seen chart reviewed, consult dictated Physical Exam Vital Signs: Vital Signs: Last Vital Signs Temp 98.1 F 08/20/21 08:00 Pulse 64 08/20/21 09:09 Resp 18 08/20/21 08:00 BP 140/66 H 08/20/21 09:09 Pulse Ox 94 08/20/21 08:00 Body Mass Index 42.6 Objective Data Labs CBC & Chem 7: 08/17/21 06:36 08/20/21 05:25 Labs: Laboratory Results - last 24 hr 08/20/21 05:25 Sodium 145 Potassium 4.4 Chloride 116 H Carbon Dioxide 23 Anion Gap 10 L BUN 31 H Creatinine 2.80 H Estim Creat Clear Calc 18.0 Estimated GFR 16 Random Glucose 107 Calcium 8.1 L Microbiology Microbiology Results: Microbiology 08/16/21 15:51 Blood - Venous Blood Culture - Preliminary No growth after 48 hours. 08/16/21 15:51 Blood - Venous Blood Culture - Final Coag negative Staphylococcus Procedures Date of Service Date of Service: 08/20/21 Assessment & Plan Assessment and plan (1) Acute kidney injury superimposed on chronic kidney disease: Start date: 08/20/21 Start time: 11:41 Status: Acute Assessment and Plan: will follow with Dr Renee on DC from hospital thank you Time Spent With Patient Time: Total time spent is greater than 50% in coordination of care (as documented) at patient's floor/unit and/or counseling patient: Progress Note: Quality Stroke Does the patient have a stroke diagnosis?: No
--- NOTE | 2021-08-20 13:25 | CONS_ITS ---
DATE OF SERVICE: 08/20/2021 REASON FOR CONSULTATION: Evaluation of RAÚL on CKD. OUTPATIENT SUSTAINABILITY DIRECTOR: Nelson Renee MD. HISTORY OF PRESENT ILLNESS: Ms. Doty is a very pleasant 85-year-old female with history of a stage 5 CKD, who follows with my partner, Dr. Nelson Renee at [facility]. The patient was last seen by Dr. Renee in May of the current year when the patient presented for followup. She has been having a slowly deteriorating course of her CKD with a GFR that has been trending down to 11 - 13 mL/minute. 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 The patient was admitted to the hospital for evaluation of increased dizziness, which has been happening for the past couple of weeks, worsened few days prior to admission, the patient reports feeling dizziness off and on mostly in author's agent, occasional nausea, at the time of admission, her electrolytes showed a potassium of 5.6 and a creatinine of 3.7 mg/dL. Per records in the outpatient clinic, her creatinine has been hovering 3.2 to 3.8 mg/dL. Her potassium levels have been in the 4.9 - 5.1 range. She is on sodium bicarbonate supplements. Her bicarbonate levels have remained stable at 24 - 25. Since admission due to concerns for RAÚL, superimposed on CKD, she was started on IV fluids. She was treated with Lokelma for hyperkalemia. Her potassium levels have improved down to 4.4. IV fluids have continued up to this morning. Her creatinine is down to 2.8 mg/dL. Her sodium is 145. She feels remarkably better, although continues to feel sense of dizziness mostly early mornings. She denied any vertigo, but for the most part is lightheadedness, dizziness. During admission, her workup also included a CT scan of the brain, which showed no evidence of acute hemorrhage. Chest x-ray with no evidence of cardiopulmonary process, a renal ultrasound that shows bilateral medical renal disease with decreased cortical medullary differentiation. No doppler evidence of renal artery stenosis. A blood culture that showed a contaminant coag-negative staph, she initially received antibiotics, subsequently was discontinued. Blood pressure osullivan, she has had treatment with Carvedilol and hydralazine as per her outpatient regimen. Her blood pressures have been in average 137/79, up to 140/66. She has not been orthostatic. Renal consultation was requested to follow along. PAST MEDICAL HISTORY: CKD stage 5. History of primary hyperparathyroidism, chronic metabolic acidosis, hypercalcemia, hypertension, hyperkalemia, anemia, osteoarthritis. PAST SURGICAL HISTORY: Ankle surgery, open reduction of the right ankle in the past, cataract surgery. SOCIAL HISTORY: Never a smoker. No alcohol intake. No illicit drugs. FAMILY HISTORY: Mother with diabetes and hypertension. Father with diabetes and heart disease. MEDICATIONS: Outpatient medication regimen including Wellbutrin 150 mg daily, Coreg 25 mg twice a day, Pepcid 20 mg daily, Flonase nasal spray daily, Neurontin 400 mg daily at bedtime, hydralazine 10 mg twice daily, lisinopril 10 mg daily, Lorazepam 0.5 mg daily at bedtime, Mycostatin p.r.n., Dulera inhaled 2 puffs twice daily, sodium bicarbonate 325 mg twice daily, ranitidine 150 mg twice daily. ALLERGIES: NO KNOWN DRUG ALLERGIES. REVIEW OF SYSTEMS: Presently, she denies any vomiting, headache, visual changes, hallucinations, cough, hemoptysis, hematemesis, or bright red blood per rectum. She reports very rare nausea. Denies shortness of breath. Occasional ankle edema. Denies any chest pain, palpitations, cough, hemoptysis, hematemesis, or bright red blood per rectum. Rest of the 10-point review of systems negative. PHYSICAL EXAMINATION: GENERAL: On physical evaluation, she is alert, in no distress. VITAL SIGNS: Her blood pressure this morning is 140/66, heart rate of 64 per minute, oxygen saturation 94% on room air. Afebrile. HEENT: Oral moist mucosa. NECK: Reveals no jugular venous distention. LUNGS: Clear bilaterally. HEART: S1, S2. No S3, no S4. No murmurs, no rubs. ABDOMEN: Obese, soft. No rebound tenderness. EXTREMITIES: Showed no ankle edema. 2+ distal pulses in upper and lower extremities. NEUROLOGIC: Nonfocal. LABORATORY DATA: As mentioned above. IMPRESSION: Ms. Doty is a very pleasant 85-year-old female with known medical history of chronic kidney disease stage 5, who was admitted with an episode of lightheadedness, dizziness of unclear etiology, likely secondary to dehydration along with volume depleted state. She had some degree of prerenal azotemia and hyperkalemia, which was treated medically with IV fluids, isotonic solution, and Lokelma therapy. Fortunately, her chemistries have improved dramatically. Her creatinine is back down to 2.8 mg/dL, better than her usual baseline, and her symptoms have not 100% improved, but definitely better done on admission. 1. Acute kidney injury, resolved. 2. Chronic kidney disease stage 5, baseline creatinine 3 - 3.6 mg/dL. 3. Resolved hyperkalemia. 4. Stable metabolic acidosis. RECOMMENDATIONS: As the patient has improved dramatically, it is unclear yet if this was a side effect from outpatient medication regimen. Per medical record in hospital, she was receiving oxybutynin, which the patient does not recall, I suggest to discontinue this medication for her med regimen as it may be associated with increased lightheadedness and dizziness as a side effect. Although the possibility of some orthostatic volume depleted state may also have been a contributor I did not see orthostatics reported, presently she is doing dramatically better and clearly IV fluidswas in her best benefit. Presently, she does not require any further IV fluid resuscitation and continue with oral p.o. fluids as she has been doing as she requires some oral hydration on a regular basis, her potassium levels have improved. She will need to stay on a strict low-potassium diet, which we can follow up as an outpatient. She had an appointment with Dr. Renee as of yesterday, which we will have rebooked. I had a conversation with the patient. She agrees with the plan; and for the time being, fortunately as her chemistries have improved dramatically and her symptoms are somehow improved, I agree she should go home. I will let Dr. Renee, my partner will schedule followup. Thank you for allowing me to be part of her care. MD JAE Siu/PATRICIA / [phone] [facility]
== END 2021-08-20 11:40 | disposition home health service (06) | DRG 683 ==
LOC: HO.ED 21:48 → HO.EDOVER 22:12 → HO.S3 08-17 16:43
PROVIDERS: Family Medicine; Physician Assistant; Admitting Provider Hospitalist; Emergency Provider Emergency Medicine; PCP Internal Medicine; Visit Provider Internal Medicine
DX: N17.9 Acute kidney failure, unspecified (principal); Z68.41 Body mass index [BMI] 40.0-44.9, adult; I12.9 Hypertensive chronic kidney disease with stage 1 through stage 4 chronic kidney disease, or unspecified chronic kidney disease; N18.4 Chronic kidney disease, stage 4 (severe); E66.01 Morbid (severe) obesity due to excess calories; I95.1 Orthostatic hypotension; J44.9 Chronic obstructive pulmonary disease, unspecified; E87.5 Hyperkalemia; Z20.822 Contact with and (suspected) exposure to COVID-19; Z79.899 Other long term (current) drug therapy
CPT/HCPCS: 36415; 70450; 71045; 76775; 80048; 80076; 81003; 82607; 82803; 83605; 83690; 83735; 84300; 84443; 84484; 85025; 87040; 87147; 87205; 87635; 93005; 93975; 96361; 96374; 97110; 97116; 97162; 99285; J0610; J0878; J1650

== ENCOUNTER 2021-08-26 07:15 | Emergency (ER) | payer MEDICARE, MEDICAID, SELFPAY ==
[2021-08-26] VITALS (7 sets, daily range): BP systolic 191–224; BP diastolic 60–150; PULSE 60–78; RESP 14–17; TEMP 36.8; O2SAT 94–99; BMI 41.8
--- NOTE | 2021-08-26 07:27 | ED.FALL ---
HPI - Fall General Chief Complaint: Fall Stated Complaint: FALL,FOUND ON BR FLOOR Time Seen by Provider: 08/26/21 07:27 Source: patient and EMS Mode of arrival: EMS Limitations: no limitations History of Present Illness MD complaint: fall Onset (ago): day(s) (1) Fall from: standing Fall witnessed: no Place fall occurred: home Loss of consciousness: none Prolonged down time: no Symptoms prior to fall: lightheadedness Context: other (states lost balance after taking laxatives - was constipated now having sig BMs and was going to the bathroom a alot - fell x 2 in 24 hours) Severity: moderate Associated symptoms (after fall): denies Related Data Home Medications Medication Instructions Recorded Confirmed acetaminophen 325 mg tablet 650 mg PO Q4H PRN 08/16/21 08/26/21 albuterol sulfate 90 mcg/actuation 2 puff INHALATION Q4H PRN 08/16/21 08/26/21 aerosol inhaler bupropion HCl 150 mg 24 hr tablet, 1 tab PO DAILY 08/16/21 08/26/21 extended release carvedilol 25 mg tablet 1 tab PO BID 08/16/21 08/26/21 famotidine 20 mg tablet 1 tab PO BID 08/16/21 08/26/21 gabapentin 100 mg capsule 1 cap PO BEDTIME 08/16/21 08/26/21 hydralazine 50 mg tablet 1 tab PO TID 08/16/21 08/26/21 loratadine 10 mg tablet 10 mg PO DAILY PRN 08/16/21 08/26/21 lorazepam 0.5 mg tablet 1 tab PO BEDTIME PRN 08/16/21 08/26/21 oxybutynin chloride 5 mg tablet 5 mg PO DAILY 08/16/21 08/26/21 sennosides 8.6 mg tablet (senna) 17.2 mg PO DAILY PRN 08/16/21 08/26/21 sodium bicarbonate 325 mg tablet 1 tab PO TID 08/16/21 08/26/21 umeclidinium 62.5 mcg/actuation 1 puff INHALATION DAILY 08/16/21 08/26/21 blister powder for inhalation (Incruse Ellipta) rosuvastatin 20 mg tablet 1 tab PO DAILY 08/26/21 08/26/21 venlafaxine 150 mg tablet,extended 1 tab PO DAILY 08/26/21 08/26/21 release 24 hr Previous Rx's Medication Instructions Recorded compr.stocking,knee,long,small #2 ea 08/20/21 (TTheodoreETheodoreD. Knee Nvglcc-V-Cpoa) Allergies Allergy/AdvReac Type Severity Reaction Status Date / Time No Known Allergies Allergy Verified 08/16/21 15:17 Review of Systems Review of Systems: Constitutional : No Weight loss, No Fever, No Chills ENT/Mouth : No sore throat, No Rhinorrhea Eyes: No Swelling, No Redness Cardiovascular : No Chest Pain, No SOB, NoEdema Respiratory : No Cough, No Sputum, No Wheezing Gastrointestinal : no Nausea,no Vomiting, pos Diarrhea, no abdominal Pain, No Hematochezia, No Melena Genitourinary : No Dysuria, No Urinary Frequency, No Hematuria, No Urgency Musculoskeletal : No joint pain, No Myalgias, No Joint Swelling Skin : No Skin Lesions, No rash Neuro : pos Weakness, No Numbness, No Dizziness, No Headache Psych : No Anxiety/Panic, No Depression Heme/Lymph: No Bruising, No Lymphadenopathy Endocrine : No Polyuria, No Polydipsia All other systems reviewed and are negative. [facility] Past Medical History Attestation statement: The following information was validated with the patient. Medical History Bacteremia COPD (chronic obstructive pulmonary disease) High cholesterol HTN (hypertension) Kidney disease Social History Social History Household Members: None Housing: Apartment Do you presently have visiting nurse or other home services: Yes Alcohol intake: unknown Patient Tobacco Use Status: Never used Tobacco Use of substances other than those prescribed or required for medical reasons: No Advance Directives: Yes Advance Directives Information Provided: No Advance Directives on File: No service: No Current occupational status: retired Physical Exam Vital Signs: Vital Signs: Last Vital Signs Temp 98.2 F 08/26/21 07:25 Pulse 75 08/26/21 08:21 Resp 15 08/26/21 08:00 BP 191/62 H 08/26/21 08:21 Pulse Ox 95 08/26/21 08:00 Body Mass Index 41.8 Appearance: Alert. Oriented X3. No acute distress. Eyes: Pupils equal, round and reactive to light. ENT: Pharynx normal. Neck: Normal inspection. Neck supple. CVS: Normal heart rate and rhythm. Pulses normal. Respiratory: No respiratory distress. Breath sounds normal. Abdomen: Soft and nontender. Skin: Skin warm and dry. Normal skin color. Normal skin turgor. Extremities: No lower extremity edema. No calf ttp Neuro: Oriented X 3. No motor deficit. No sensory deficit. Course Course Course Narrative: no EKG changes, chronic elevated troponin, will refer to PT/CM - no CP/SOB Patient placed in physician observation at 1032am. The indication for observation is the patient needs to see PT/CM. At this time the patient is well developed well nourished, lungs clear, CV RRR, abd nontender, neuro is intact. MDM - Fall MDM Narrative Medical decision making narrative: 85 yo female with hx of CKD, HTN, hx of weakness, notes she was constipated so she took laxatives and then has had 24+ hours of significant nonbloody BMs, she has been going to the bathroom a lot, felt lightheaded and fell x 2 in 24 hours - no injuries, feels fine now but given this will need EKG, labs, ortho VS, IVF - suspect dehydration vs orthostatics, no CP so suggest ACS, she denies GIB and has no abdominal pain to suggest colitis Lab Data Result diagrams: 08/26/21 09:50 08/26/21 09:50 Labs: Lab Results 08/26/21 08/26/21 08/26/21 Range/Units 08:03 08:38 09:50 WBC 7.3 (4.8-10.8) X10*3/uL RBC 3.77 L (4.20-5.50) X10*6/uL Hgb 10.9 L (12.0-16.0) g/dl Hct 36.0 L (37-47) % MCV 95.5 (80-98) fL MCH 28.9 (27.0-33.0) pg MCHC 30.3 L (31.0-35.0) g/dl RDW 15.2 (11.0-16.0) % Plt Count 145 L (160-400) X10*3/uL MPV 9.3 L (9.4-12.3) fL Immature Gran % (Auto) 0.3 (0.0-0.4) % Neut % (Auto) 72.0 (45-73) % Lymph % (Auto) 14.6 L (20-40) % [place] % (Auto) 11.1 H (2-11) % Eos % (Auto) 1.9 (0-4) % Baso % (Auto) 0.1 (0-2) % Lymph # (Auto) 1.1 L (1.2-4.9) X10*3/uL [place] # (Auto) 0.8 (0.1-1.2) X10*3/uL Eos # (Auto) 0.1 (0.0-0.4) X10*3/uL Baso # (Auto) 0.0 (0.0-0.2) X10*3/uL Abs Immat Gran (auto) 0.02 (0.00-0.03) X10*3/uL Absolute Neuts (auto) 5.3 (2.0-8.3) X10*3/uL Absolute Nucleated RBC 0.000 (0.0-0.012) X10*3/uL Nucleated RBC % (auto) 0.0 (0.0-0.2) /100WBC Sodium (135-145) mmol/L Potassium (3.3-5.1) mmol/L Chloride (96-108) mmol/L Carbon Dioxide (22-29) mmol/L Anion Gap (12-20) BUN (9-16) mg/dL Creatinine (0.5-1.4) mg/dL Estim Creat Clear Calc Estimated GFR Random Glucose (60-115) mg/dL Lactic Acid (0.5-2.0) mmol/L Calcium (8.4-10.2) mg/dL Magnesium (1.6-2.6) mg/dL Total Bilirubin (0.0-1.0) mg/dL Direct Bilirubin (0.0-0.5) mg/dL AST (5-31) U/L ALT (0-31) U/L Alkaline Phosphatase (39-117) U/L Total Creatine Kinase (26-140) U/L Troponin I High Sens (<3.5-17.0) ng/L Total Protein (6.5-8.0) g/dL Albumin (3.5-5.0) g/dL Lipase (8-78) U/L Urine Color YELLOW Urine Appearance CLEAR Urine pH 6.0 (5.0-8.0) Ur Specific [place] 1.015 (1.005-1.025) Urine Protein 1+ H (NEG-TRACE) MG/DL Urine Glucose (UA) NEG (NEG) MG/DL Urine Ketones NEG (NEG) MG/DL Urine Blood NEG (NEG) Urine Nitrite NEG (NEG) Ur Leukocyte Esterase NEG (NEG) Urine RBC 0-2 (0) /HPF Urine WBC 0 (0-4) /HPF Ur Squamous Epith Cells NONE /LPF Urine Bacteria NONE /LPF COVID-19 (AMANDA) Negative (Negative) COVID-19 Clin Com See Note 08/26/21 08/26/21 08/26/21 Range/Units 09:50 09:50 09:50 WBC (4.8-10.8) X10*3/uL RBC (4.20-5.50) X10*6/uL Hgb (12.0-16.0) g/dl Hct (37-47) % MCV (80-98) fL MCH (27.0-33.0) pg MCHC (31.0-35.0) g/dl RDW (11.0-16.0) % Plt Count (160-400) X10*3/uL MPV (9.4-12.3) fL Immature Gran % (Auto) (0.0-0.4) % Neut % (Auto) (45-73) % Lymph % (Auto) (20-40) % [place] % (Auto) (2-11) % Eos % (Auto) (0-4) % Baso % (Auto) (0-2) % Lymph # (Auto) (1.2-4.9) X10*3/uL [place] # (Auto) (0.1-1.2) X10*3/uL Eos # (Auto) (0.0-0.4) X10*3/uL Baso # (Auto) (0.0-0.2) X10*3/uL Abs Immat Gran (auto) (0.00-0.03) X10*3/uL Absolute Neuts (auto) (2.0-8.3) X10*3/uL Absolute Nucleated RBC (0.0-0.012) X10*3/uL Nucleated RBC % (auto) (0.0-0.2) /100WBC Sodium 142 (135-145) mmol/L Potassium 4.1 (3.3-5.1) mmol/L Chloride 110 H (96-108) mmol/L Carbon Dioxide 22 (22-29) mmol/L Anion Gap 14 (12-20) BUN 24 H (9-16) mg/dL Creatinine 3.11 H (0.5-1.4) mg/dL Estim Creat Clear Calc 16.1 Estimated GFR 14 Random Glucose 88 (60-115) mg/dL Lactic Acid 1.0 (0.5-2.0) mmol/L Calcium 8.6 D (8.4-10.2) mg/dL Magnesium 2.0 (1.6-2.6) mg/dL Total Bilirubin 0.5 (0.0-1.0) mg/dL Direct Bilirubin 0.2 (0.0-0.5) mg/dL AST 16 (5-31) U/L ALT 20 (0-31) U/L Alkaline Phosphatase 80 (39-117) U/L Total Creatine Kinase 115 (26-140) U/L Troponin I High Sens 28.1 H* (<3.5-17.0) ng/L Total Protein 5.6 L (6.5-8.0) g/dL Albumin 3.4 L (3.5-5.0) g/dL Lipase 12 (8-78) U/L Urine Color Urine Appearance Urine pH (5.0-8.0) Ur Specific [place] (1.005-1.025) Urine Protein (NEG-TRACE) MG/DL Urine Glucose (UA) (NEG) MG/DL Urine Ketones (NEG) MG/DL Urine Blood (NEG) Urine Nitrite (NEG) Ur Leukocyte Esterase (NEG) Urine RBC (0) /HPF Urine WBC (0-4) /HPF Ur Squamous Epith Cells /LPF Urine Bacteria /LPF COVID-19 (AMANDA) (Negative) COVID-19 Clin Com ECG Data Attestation: I personally reviewed and interpreted this ECG as follows: ECG interpretation date: 08/26/21 ECG interpretation time: 07:51 Interpretation: Rate: 66 Rhythm: NSR [place]: left Normal P waves. Normal CARLOS. Normal QRS complex. ST T wave : no RAYO, nonspecific I and aVL qTC: normal prior studies: no acute ischemia The study has been interpreted contemporaneously by me. . Discharge Plan Discharge Clinical Impression: CKD (chronic kidney disease), Falls Prescriptions: No Action carvedilol 25 mg tablet 1 tab PO BID RF: 0 sodium bicarbonate 325 mg tablet 1 tab PO TID RF: 0 famotidine 20 mg tablet 1 tab PO BID RF: 0 lorazepam 0.5 mg tablet 1 tab PO BEDTIME PRN (Reason: Anxiety) RF: 0 hydralazine 50 mg tablet 1 tab PO TID RF: 0 gabapentin 100 mg capsule 1 cap PO BEDTIME RF: 0 bupropion HCl 150 mg tablet extended release 24 hr 1 tab PO DAILY RF: 0 Incruse Ellipta 62.5 mcg/actuation blister with device 1 puff inhalation DAILY RF: 0 sennosides [senna] 8.6 mg Tablet 17.2 mg PO DAILY PRN (Reason: Constipation) RF: 0 acetaminophen 325 mg Tablet 650 mg PO Q4H PRN (Reason: Pain (Scale Score 1-3)) RF: 0 albuterol sulfate 90 mcg/actuation Hfa Aerosol Inhaler 2 puff INHALATION Q4H PRN (Reason: Shortness Of Breath) RF: 0 loratadine 10 mg Tablet 10 mg PO DAILY PRN (Reason: Allergy Symptoms) RF: 0 oxybutynin chloride 5 mg Tablet 5 mg PO DAILY RF: 0 Hold Instructions: Resume on 08/22/21. dizziness improving , start in 2 days (DME) T.E.D. Knee Xcwzme-[id number]-Bzww Misc See Rx Instructions .Route Qty: 2 RF: 0 rosuvastatin 20 mg tablet 1 tab PO DAILY RF: 0 venlafaxine 150 mg tablet extended release 24hr 1 tab PO DAILY RF: 0
--- NOTE | 2021-08-26 07:31 | ECG_ITS ---
Test Reason : FALL Blood Pressure : / mmHG Vent. Rate : 066 BPM Atrial Rate : 066 BPM P-R Int : 198 ms QRS Dur : 092 ms QT Int : 416 ms P-R-T Axes : 082 -14 092 degrees QTc Int : 436 ms Normal sinus rhythm Abnormal QRS-T angle, consider primary T wave abnormality Abnormal ECG When compared with ECG of 16-AUG-2021 14:53, No significant change was found Referred By: Lindsay Vazquez Electronically Signed By:SHELLY ARAGON
[2021-08-26] MEDS: 0.9 % Sodium Chloride 1,000 ML 999 ML IVCONT (07:41)
--- NOTE | 2021-08-26 08:23 | PC.NURSE ---
this RN attempted x2 for straight stick. both unsuccessful. lab to draw blood.
[2021-08-26 08:51] LABS: Appearance Urine CLEAR; Color Urine YELLOW; Glucose Urine UA NEG (NEG); Leukocyte Esterase Urine NEG (NEG); Nitrite Urine NEG (NEG); Specific Gravity - Urine 1.015 (1.005-1.025); UACC Culture Trigger NO; Urine Blood NEG (NEG); Urine Ketones NEG (NEG); Urine Protein 1+ MG/DL (NEG-TRACE)
[2021-08-26 09:05] LABS: RBC Urine 0-2 /HPF (0); WBC Urine 0 /HPF (0-4)
[2021-08-26 09:55] LABS: MANUAL DIFF FLAG NO
[2021-08-26 09:56] LABS: Basophils Percent Auto 0.1 % (0-2); Eosinophils Absolute Auto 0.1 X10*3/uL (0.0-0.4); Eosinophils Percent Auto 1.9 % (0-4); Hemoglobin 10.9 g/dl (12.0-16.0); Imm Gran Abs Auto 0.02 X10*3/uL (0.00-0.03); Imm Gran Pct Auto 0.3 % (0.0-0.4); Lymphocytes Absolute Auto 1.1 X10*3/uL (1.2-4.9); Lymphocytes Percent Auto 14.6 % (20-40); Mean Corpuscular HGB Conc 30.3 g/dl (31.0-35.0); Mean Corpuscular Hemoglobin 28.9 pg (27.0-33.0); Mean Corpuscular Volume 95.5 fL (80-98); Mean Platelet Volume 9.3 fL (9.4-12.3); Monocytes Absolute Auto 0.8 X10*3/uL (0.1-1.2); Monocytes Percent Auto 11.1 % (2-11); Neutrophils Absolute Auto 5.3 X10*3/uL (2.0-8.3); Platelet Count 145 X10*3/uL (160-400); Red Blood Count 3.77 X10*6/uL (4.20-5.50); Red Cell Distribution Width 15.2 % (11.0-16.0); White Blood Count 7.3 X10*3/uL (4.8-10.8)
[2021-08-26 09:59] LABS: COVID-19 Test Negative (Negative)
[2021-08-26 10:27] LABS: Alanine Aminotransferase 20 U/L (0-31); Albumin Level 3.4 g/dL (3.5-5.0); Alkaline Phosphatase 80 U/L (39-117); Anion Gap 14 (12-20); Aspartate Amino Transferase 16 U/L (5-31); Bilirubin Direct 0.2 mg/dL (0.0-0.5); Bilirubin Total 0.5 mg/dL (0.0-1.0); Blood Urea Nitrogen 24 mg/dL (9-16); Calcium 8.6 mg/dL (8.4-10.2); Carbon Dioxide 22 mmol/L (22-29); Chloride 110 mmol/L (96-108); Creatinine Clr Calc Pharmacy 16.1; Estimated Glomerular Filt Rate 14; Glucose Random 88 mg/dL (60-115); Lipase 12 U/L (8-78); Potassium 4.1 mmol/L (3.3-5.1); Sodium 142 mmol/L (135-145); Total Protein 5.6 g/dL (6.5-8.0)
[2021-08-26 10:30] LABS: Troponin-I High Sensitivity 28.1 ng/L (<3.5-17.0)
--- NOTE | 2021-08-26 10:32 | PC.NURSE ---
updated pt's healthcare proxy on medical clearance and pt/cm workup. pt resting soundly in room.
--- NOTE | 2021-08-26 10:46 | PC.NURSE ---
Darion (pt's healthcare proxy)
--- NOTE | 2021-08-26 12:56 | MHC.CM.ED ---
Attempted to meet with patient in regards to discharge planning. Patient sleeping. Spoke with patient's son/HCP, Darion via telephone at [phone]. Patient lives home alone, ambulates with a walker and has [facility]. PCP verified. Copy of patient's HCP verified to be on file. Patient received [employer] ([employer] vaccines on 01/16 and 02/06. Physical therapy eval completed. Short term rehab is recommended. Patient has been to [facility] in the past and does not want to return there. Facility options discussed with Darion. He feels his mother can decide which facility she would like to go to. Woke patient up and discussed facility options via [facility]. Patient agreeable to referral to [facility] has been asked to obtain insurance auth. Continue to monitor for d/c needs.
--- NOTE | 2021-08-26 13:02 | PHA.MEDREC ---
Pharmacy Consult ? Medication Reconciliation Pharmacy has completed the medication reconciliation. medical records from facility in chart. Pt had claim history for rosuvastatin, but the facility records have Atorvastatin. (possible an interchange)
[2021-08-26] MEDS: hydrALAZINE HCl 50 MG TABLET PO ×2 (17:14→22:26)
[2021-08-26] MEDS: Gabapentin 100 MG CAPSULE PO (22:25)
[2021-08-26] MEDS: Famotidine 20 MG TABLET PO (22:25)
[2021-08-26] MEDS: carvediloL 25 MG TABLET PO (22:25)
[2021-08-26] MEDS: Sodium Bicarbonate 650 MG TABLET 325 MG PO (22:26)
[2021-08-26] MEDS: Atorvastatin Calcium 80 MG TABLET PO (22:26)
[2021-08-26] MEDS: Acetaminophen 325 MG TABLET 650 MG PO (22:28)
[2021-08-27 05:39] VITALS: BP 181/70; PULSE 67; RESP 15; TEMP 36.7; O2SAT 95
[2021-08-27 08:00] VITALS: BP 182/73; PULSE 84; RESP 18; TEMP 36.7; O2SAT 100
[2021-08-27 09:34] VITALS: BP 182/73; PULSE 84
[2021-08-27] MEDS: buPROPion HCl XL 150 MG TAB.ER.24H PO (09:34)
[2021-08-27] MEDS: Sodium Bicarbonate 650 MG TABLET 325 MG PO (09:34)
[2021-08-27] MEDS: carvediloL 25 MG TABLET PO (09:34)
[2021-08-27 09:35] VITALS: BP 182/73; PULSE 84
[2021-08-27] MEDS: hydrALAZINE HCl 50 MG TABLET PO (09:35)
[2021-08-27] MEDS: Famotidine 20 MG TABLET PO (09:35)
--- NOTE | 2021-08-27 09:41 | MHC.CM.ED ---
pt rec'd auth from payor for bear [facility]. pt will leave here via action at 11:30 am. kirstie, rregina and patient are aware of this dc plan . the patient's son, pramod, was called - message left to inform him patient would be leaving our e.d. for [facility] at 11:30 am. cm to cont. to follow.
== END 2021-08-27 11:19 | disposition skilled nursing facility (03) ==
PROVIDERS: Emergency Provider Emergency Medicine; PCP Internal Medicine
DX: I12.9 Hypertensive chronic kidney disease with stage 1 through stage 4 chronic kidney disease, or unspecified chronic kidney disease (principal); N18.9 Chronic kidney disease, unspecified; K59.00 Constipation, unspecified; Z20.822 Contact with and (suspected) exposure to COVID-19; Z79.899 Other long term (current) drug therapy; Z91.81 History of falling
CPT/HCPCS: 36415; 80048; 80076; 81001; 82550; 83605; 83690; 83735; 84484; 85025; 87040; 87635; 93005; 96360; 97162; 99285

== ENCOUNTER 2022-10-18 09:46 | Emergency (ER) | payer MEDICARE, MEDICAID, SELFPAY ==
[2022-10-18 10:01] VITALS: BP 180/90; PULSE 88; RESP 16; TEMP 36.9; O2SAT 98; BMI 37.5
--- OUTSIDE RECORDS SUMMARY | 2022-10-18 10:04 | XMS_ITS | Continuity of Care Document ---
:1935 Author Organization [facility] Address [address] [place] [id number] Care Team Providers Name Role Phone Joshua Schaeffer MD Primary Care Physician [place] [facility] [place]/[address] [id number]charge Disposition: A-D/C Home Attending Physician: Ten Barreto MD Admitting Physician: Ten Barreto MD Referring Physician: Ten Barreto MD Allergies, Adverse Reactions, Alerts No Known Medication Allergies Immunizations Given and Recorded Vaccine Date Status Refusal Reason SARS-CoV-2 (COVID-19) mRNA BNT-162b2 vac 02/06/21 Given SARS-CoV-2 (COVID-19) mRNA BNT-162b2 vac 01/16/21 Given Medications aspirin 81 mg oral capsule 1 capsule = 81 mg, By Mouth, Daily, 0 Refills, Maintenance, 07/22/22 15:41:00 EDT, Partial fill uponpatient request if the prescription is for a schedule II opioid drug. Start Date: 07/22/22 Status: OrderedBuPROpion = 150 mg, By Mouth, Daily, 0 Refills, Maintenance, 11/13/21 10:04:00 EST, Partial fill upon patient request if the prescription is for a schedule II opioid drug. Start Date: 11/13/21 Status: OrderedhydrALAZINE = 75 mg, By Mouth, 2 times a day, 0 Refills, Maintenance, 11/13/21 10:00:00 EST, Partial fill upon patient request if the prescription is for a schedule II opioid drug. Start Date: 11/13/21 Status: OrderedLoratadine 10 mg, By Mouth, Daily, Refills 0, Maintenance, 11/13/21 10:02:00 EST, Partial fill upon patient request if the prescription is for a schedule II opioid drug. Start Date: 11/13/21 Status: OrderedLORazepam 0.5 mg oral tablet 1 tablet = 0.5 mg, By Mouth, Daily at bedtime, PRN Sleep, 0 Refills, Maintenance, 07/22/22 15:42:00 EDT, Partial fill upon patient request if the prescription is for a schedule II opioid drug. Start Date: 07/22/22 Status: OrderedRosuvastatin = 20 mg, By Mouth, Daily at bedtime, 0 Refills, Maintenance, 11/13/21 10:03:00 EST, Partial fill upon patient request if the prescription is for a schedule II opioid drug. Start Date: 11/13/21 Status: OrderedSevelamer = 800 mg, By Mouth, 3 times a day, 0 Refills, Maintenance, 07/22/22 15:41:00 EDT, Partial fill upon patient request if the prescription is for a schedule II opioid drug. Start Date: 07/22/22 Status: Orderedsodium bicarbonate 325 mg oral tablet 1 tablet = 325 mg, By Mouth, 3 times a day, # 30 tablet, 0 Refills, Maintenance, 11/13/21 10:03:00 EST, Tablet, Partial fill upon patient request if the prescription is for a schedule II opioid drug. Start Date: 11/13/21 Status: Orderedvenlafaxine 150 mg oral capsule, extended release 150 mg, 1, capsule, By Mouth, Daily, Refills 0, Maintenance, 04/29/18 14:53:15 EDT Start Date: 04/29/18 Status: Ordered Problem List Condition Effective Dates Status Health Status Informant Anxiety(Confirmed) Active Chronic disease(Confirmed) Active Depression(Confirmed) Active Obese class I(Confirmed) Active Vital Signs Most recent to oldest 1 2 3 [Reference Range]: Height 172.7 cm 172.7 cm (07/23/22 12:16 PM) (07/22/22 3:50 PM) Weight 95.6 kg 95.4 kg (07/23/22 12:16 PM) (07/22/22 3:50 PM) Oxygen Saturation [94-100 98 % 97 % 100 % %] (07/23/22 4:00 PM) (07/23/22 3:45 PM) (07/23/22 12: 16 PM) Pulse Rate [55-90 bpm] 58 bpm (07/23/22 12:16 PM) Body Mass Index 32.05 31.99 [18.5-24.99] *>HHI* *>HHI* (07/23/22 12:16 PM) (07/22/22 3:50 PM) Blood Pressure 143/48 mm Hg 133/50 mm Hg 141/51 mm Hg [90-138/55-84 mm Hg] *H* (07/23/22 3:45 PM) *H* (07/23/22 4:00 PM) (07/23/22 12:16 PM) Respiratory Rate [16-30 18 br/min 19 br/min 15 br/mi n br/min] (07/23/22 4:00 PM) (07/23/22 3:45 PM) *L* (07/23/22 12:16 P M) Temperature [96.8-100.4 97.4 DegF 97.9 DegF DegF] (07/23/22 3:45 PM) (07/23/22 12:16 PM) Mode of Delivery (Oxygen) Room air Room air Room a ir (07/23/22 4:00 PM) (07/23/22 3:45 PM) (07/23/22 12: 16 PM) Blood pressure sites Leg, right Arm, right (07/23/22 3:45 PM) (07/23/22 12:16 PM) Temperature Route Temporal Temporal (07/23/22 3:45 PM) (07/23/22 12:16 PM) Dry Weight 95.6 kg 95.4 kg (07/23/22 12:16 PM) (07/22/22 3:50 PM) Weight Obtained Via Standing scale Patient/family stated (07/23/22 12:16 PM) (07/22/22 3:50 PM) Dry Weight Obtained Via Standing scale Patient/family stated (07/23/22 12:16 PM) (07/22/22 3:50 PM) Social History Social History Type Response Smoking Status Never smoker entered on: 04/29/18 Sex Implantable Device List Procedure Provider Procedure Date Device Type Site Creation Arteriovenous Mary Lou DANIELS, Ten 11/15/21 Unknown Arm Left Graft Upper Extre Device Serial Lot or Manufacturing Expiration Distinct MRI Implan table Assigning Identifier Number Batch Date Date Identification Safety Status Authority Number Code Unknown Unknown [id number] Unknown 09/19/25 Unknown Unknown Active Unknown 9
--- OUTSIDE RECORDS SUMMARY | 2022-10-18 10:04 | XMS_ITS ---
:1935 Author Organization [facility], NA DOCUMENT DISCLAIMER The information in the [facility] Continuity of Care Document represents a summary of certain health and medical information. It may not contain the complete medical history for the patient and should be independently verified. The represented time in the document is Eastern Time. 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 J anuary 2021 Hypotension of hemodialysis I95.3 Active Ronni zhangclendenin 2021 Cramp and spasm R25.2 Active December 25 Encounter for adequacy testing for Z49.31 Active December 25, 2021 hemodialysis Coagulation defect, unspecified D68.9 Active December 25, 2021 Angina pectoris, unspecified I20.9 Active J anuary 2021 Pruritus, unspecified L29.9 Active December 25, 2021 Fever, unspecified R50.9 Active December 25, 2021 Pain, unspecified R52 Active December 25, 2021 Headache, unspecified R51.9 Active December 25, 2021 Encounter for immunization Z23 Active Dave harper 2021 Encounter for screening for respiratory Z11.1 Active December 25, 2021 tuberculosis Nausea R11.0 Active December 25 Diarrhea, unspecified R19.7 Active December 25, 2021 Other abnormalities of breathing R06.89 Active December 25, 2021 Other disorders of electrolyte and fluid E87.8 Activ e December 25, 2021 balance, not elsewhere classified Iron deficiency anemia, unspecified D50.9 Active December 25, 2021 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 December 25, 2021 origin Anemia in chronic kidney disease D63.1 Active December 25, 2021 End stage renal disease N18.6 Active Januar 2021 Hypertensive chronic kidney disease with I12.9 Activ e December 25, 2021 stage 1 through stage 4 chronic kidney disease, or unspecified chronic kidney disease ALLERGIES AND ADVERSE REACTIONS No Known Allergies SOCIAL HISTORY Tobacco Use Status Tobacco Type Unknown if ever consumed tobacco - Caregiver Characteristics No Information Available Characteristics of Home environment No Information Available MEDICATIONS Prescribed Medications for Dialysis Treatments Medication Instructions Dosage Route Start Date End Date Statu s Heparin Bolus, Every 3000 Intravenous - March 29March 28, Active Sodium Treatment, units push 2021 2022 (Porcine) Total treatment 1,000 Units/mL minutes 210 Systemic Iron Sucrose 1X Week 50 mg Intravenous - September 23September 22, Active (Venofer) push 2021 2022 Mircera Every 4 weeks 75 mcg Intravenous - September Active push 2021 Vitamin D Every 0.75 mcg Oral July Active (Calcitriol) Treatment 2021 Oral Home Medications Medication Instructions Dosage Route Start Date End Date Statu s bupropion HCl Take by mouth 1 tablet ORAL December 24, Active 150 mg once a day 2021 carvedilol 25 mg Take by mouth 1 tablet ORAL March 06, Active twice a day 2021 famotidine 20 mg Take by mouth 1 tablet ORAL March 06, Active twice a day 2021 gabapentin 100 Take by mouth 1 capsule ORAL March 06, Active mg once a day 2021 loratadine 10 mg Take by mouth 1 tablet ORAL March 06, Active once a day 2021 lorazepam 0.5 mg ORAL July Renvela 800 mg Take by mouth 1 tablet ORAL June 10, Active three times a day 2021 with meals rosuvastatin 20 Take by mouth 1 tablet ORAL March 06, Active mg once a day 2021 sodium Take by mouth 1 tablet ORAL December 24, A ctive bicarbonate 325 three times a day 2021 mg venlafaxine 150 Take by mouth 1 tablet ORAL December 24, Active mg once a day 2021 Zofran 4 mg Take by mouth 1 tablet ORAL May 13, A ctive twice a day as 2021 needed VITAL SIGNS Post-Treatment Vital Signs Vital Sign Value Date / Time Blood Pressure-sitting 141/64 mmHg October 16, 2022 11:10 AM Heart Rate 48 beats per minute October 16, 2022 11 :10 AM Respiratory Rate 15 breaths per minute October 16, 2022 11:10 AM Temperature 96.8 deg. F October 16, 2022 11 :10 AM Weight Vital Sign Value Date / Time Estimated Dry Weight 93 kg October 16, 2022 1 1:59 PM Pre-Dialysis 95.20 kg October 16, 2022 11 :10 AM Post-Dialysis 93.40 kg October 16, 2022 11 :10 AM Other Other Value Date / Time Height 150 cm December 25, 2021 12: 00 AM HEALTH CONCERNS Tuberculosis Testing TST Date Administered TST Date Read TST Result 12/17/2021 12/19/2021 Negative (<5) mm LAB RESULTS Hematology Result Type Result Value Relevant Reference Interpretation Date Range Hemoglobin x 3 32.4 % Male: 14.0 - 18.0 Low September 18, 2022 g/dL; Female: 12.0-16.0 g/dL HGB 10.8 g/dL Males: 14.0 - 18.0 Low August 312021 g/dL Females: 12.0 - 16.0 g/dL TIBC (Calc) 307 mcg/dL 185-515 mcg/dL - September 18 UIBC/TIBC 214 mcg/dL 155-355 mcg/dL - September 18 Transferrin Sat. 30 % 20-55% - September 18, 2022 (Calc) Iron 93 mcg/dL Females: 30-160 - September 18, 2022 mcg/dL Males: 45-160 mcg/dL Ferritin 265 ng/mL Males: 22 - 322 - September 18, 2022 ng/mL; Females: 10 - 291 ng/mL HGB 11.0 g/dL Males: 14.0 - 18.0 Low August 312021 g/dL Females: 12.0 - 16.0 g/dL Hemoglobin x 3 33.0 % Male: 14.0 - 18.0 Low September 25, 2022 g/dL; Female: 12.0-16.0 g/dL Hemoglobin x 3 33.0 % Male: 14.0 - 18.0 Low October 02, 2022 g/dL; Female: 12.0-16.0 g/dL HGB 11.0 g/dL Males: 14.0 - 18.0 Low October 02, 2022 g/dL Females: 12.0 - 16.0 g/dL HGB 11.0 g/dL Males: 14.0 - 18.0 Low October 09, 2022 g/dL Females: 12.0 - 16.0 g/dL Hemoglobin x 3 33.0 % Male: 14.0 - 18.0 Low October 09, 2022 g/dL; Female: 12.0-16.0 g/dL HGB 11.1 g/dL Males: 14.0 - 18.0 Low October 16, 2022 g/dL Females: 12.0 - 16.0 g/dL Hemoglobin x 3 33.3 % Male: 14.0 - 18.0 Low October 16, 2022 g/dL; Female: 12.0-16.0 g/dL Iron 64 mcg/dL Females: 30-160 - October 16, 2022 mcg/dL Males: 45-160 mcg/dL UIBC/TIBC 240 mcg/dL 155-355 mcg/dL - October 16, 2022 TIBC (Calc) 304 mcg/dL 185-515 mcg/dL - October 16, 2022 Transferrin Sat. 21 % 20-55% - September (Calc) Ferritin 218 ng/mL Males: 22 - 322 - October 16, 2022 ng/mL; Females: 10 - 291 ng/mL Metabolic/Renal Result Type Result Value Relevant Reference Interpretation Date Range Potassium 4.2 mEq/L 3.5-5.1 mEq/L - September 18 22 Sodium 141 mEq/L 136-145 mEq/L - September 18 22 Bicarbonate 25 mEq/L 22-29 mEq/L - September 18 2 Creatinine, Serum 4.03 mg/dL 0.6-1.3 mg/dL High August 312021 URR, Calc 74 % 65 - 80% - September 23 2 Creatinine, Serum 4.74 mg/dL 0.6-1.3 mg/dL High August 312021 BUN/Creat Ratio 6.5 -20 Low September 23, 2022 BUN, Post 8 mg/dL 6-19 mg/dL - September 23 2 Urea Nitrogen, 399 mg/dL 12-20 g/24 hrs - September 23, 2022 Urine, Timed Creatinine 5.3 mL/min Creatinine Low September 23 2 Clearance, Urine Clearance, Normalized Male 94.0-122.0 mL/min Female 77.0-94.0 mL/min BUN 31 mg/dL 6-19 mg/dl High September 23 URR, Calc 75 % 65 - 80% - October 02, 2022 BUN 32 mg/dL 6-19 mg/dl High October 02, 2022 BUN, Post 8 mg/dL 6-19 mg/dL - October 02, 2022 Creatinine, Serum 4.58 mg/dL 0.6-1.3 mg/dL High October 16, 2022 Sodium 142 mEq/L 136-145 mEq/L - October 16, 2022 Potassium 4.2 mEq/L 3.5-5.1 mEq/L - October 16, 2022 Bicarbonate 27 mEq/L 22-29 mEq/L - October 16, 2022 HD Adequacy Result Type Result Value Relevant Reference Interpretation Date Range eKt/V 1.32 No Reference range Normal August 312021 ([facility] provided spKt/V (Daugirdas 1.53 No Reference range Normal Octo miley 2021 II) provided spKt/V (Daugirdas 1.58 No Reference range Normal Nove mber 2021 II) provided eKt/V 1.36 No Reference range Normal October 02, 20[facility] provided Bone/Mineral Result Type Result Value Relevant Reference Interpretation Date Range PTH-Intact, Plasma 305 pg/mL 16 to 80 pg/mL High September 18, 2022 Corrected Ca x P 33 < 55 - September 18, 2022 Product Ca x P Product 32 < 55 - September 18 022 Phosphorus 3.5 mg/dL 2.6-4.5 mg/dL - September 18 Calcium, Total 9.0 mg/dL 8.4-10.2 mg/dL - September 18, 2022 PTH-Intact, Plasma 356 pg/mL 16 to 80 pg/mL High [facility]2021 Corrected Ca x P 38 < 55 - September Product Calcium, Total 8.8 mg/dL 8.4-10.2 mg/dL - September Phosphorus 4.1 mg/dL 2.6-4.5 mg/dL - October 16 022 Ca x P Product 36 < 55 - October 16, 2022 Liver/Nutrition Result Type Result Value Relevant Reference Interpretation Date Range Albumin (BCG) 3.5 g/dL 3.5-5.2 g/dL - September 18 SGPT (ALT) 17 U/L No reference range - August 312021 provided SGPT (ALT) 16 U/L No reference range - October 16, 2022 provided Albumin (BCG) 3.4 g/dL 3.5-5.2 g/dL Low October 16 Peritoneal Dialysis Testing Result Type Result Value Relevant Reference Interpretation Date Range Total Creatinine, 0.4 g/24 hr No Reference range Low Augo 2021 Urine provided Creatinine, Urine 113.3 mg/dL No Reference range - 2021 provided Total Urea 1.4 g/24 hr No Reference range Low August 312021 Nitrogen, Urine provided Urea Clearance, 3.1 mL/min No Reference range Low Augobe r 2021 Urine provided Infectious Diseases Result Type Result Value Relevant Reference Interpretation Date Range Hep B Surface Ab 319 mIU/mL < 10 mIU/mL, Non- - April 302021 (anti-HBs) Immune Hep B core Ab Negative Negative - May 15, 2022 Total (anti-HBc) HCV Ab (anti-HCV) Nonreactive Non-Reactive - May 15 Hep B Surface Ag Negative Negative - September (HBsAg) DIALYSIS PRESCRIPTION Conventional Hemodialysis Data Element Value Order Date/Time October 16, 2022 Frequency 3X Week Treatment Days TueThuSat Dialyzer 160NRe Optiflux Treatment Time (Total Minutes) 210 min Blood Flow Rate (mL/min) 350 mL/min Dialysate Flow Rate Manual 500 Estimated Dry Weight 93 kg Dialysate Concentrate 2.0 K, 2.5 Ca, 1.0 Mg, 100 D extrose ([id number]) Sodium (mEq/L) 138 mEq/L Bicarb Machine Setting (mEq/L) 32 mEq/L Dialysis Access Hemodialysis-AV Graft-Synthe tic - Standard (PTFE), Left Upper Arm, Other/Unknown Access Placed on July 23, 2022 Arterial Needle Size 16g1 Venous Needle Size 16g1 IMMUNIZATIONS Vaccine Date Dose Route Status Moderna COVID-September 11, 2022 0.5 mL Intramuscular Co mpleted Vaccine, Bivalent, Booster FLUZONE High-Dose September 04, 2022 0.7 mL Intramuscular C ompleted Quadrivalent COVID-May 15, 2022 0.25 mL Intramuscular Compl eted Vaccine, Booster HEPLISAV-B, series 4 April 17, 2022 20.0 mcg Intramuscular Co mpleted of 4 HEPLISAV-B, series 3 February 13, 2022 20.0 mcg Intramuscular Completed of 4 PNEUMOVAX January 30, 2022 0.5 mL Intramuscular Complete d HEPLISAV-B, series 2 January 18, 2022 20.0 mcg Intramuscula r Completed of 4 HEPLISAV-B, series 1 December 26, 2021 20.0 mcg Intramuscular Completed of 4 TRANSPLANT WAITLIST STATUS No Information on Transplant Waitlist Status ADVANCE DIRECTIVES Directive Description Ordered By Effective Date Resuscitation status Full Code Lino Lindquist Dec 26 2 DIALYSIS TREATMENTS Conventional Hemodialysis Date Pre-Treatment Post-Treatment Duration BFR Dialysate Dialyzer Dialysis Meds Vitals Vitals (hr) (mL/min) Access Admin September Weight 94.80 Weight 94.40 03:32:00 360 2.0 K, 160nre Hemodi alysis-AV Graft-Synthetic - Standard (PTFE), Left Upper Arm, Other/Unknown Heparin Sodium (Porcine) 1,000 Units/mL Systemic; 3000units,Intravenous - push 2021 kg kg 2.5 Ca, Optiflux Access Plac ed on July 23, 2022 Vitamin D (Calcitriol) Oral; 0.75mcg,Oral 1.0 Mg, 100 Dextrose ([id number]) Blood Pressure-sitting 135/62 mmHg Blood Pressure-sitting 15 1/52 mmHg Heart Rate 53 beats per minute Heart Rate 55 beats per minute Respiratory Rate 18 breaths per Respiratory Rate 20 breaths per minute minute Temperature 96.7 deg. F Temperature 97.8 deg. F September Weight 94.90 Weight 93.30 03:32:00 360 2.0 K, 160nre Hemodi alysis-AV Graft-Synthetic - Standard (PTFE), Left Upper Arm, Other/Unknown Heparin Sodium (Porcine) 1,000 Units/mL Systemic; 3000units,Intravenous - push 2021 kg kg 2.5 Ca, Optiflux Access Plac ed on July 23, 2022 Iron Sucrose (Venofer); 50mg,Intravenous - push 1.0 Mg, Vitamin D (C alcitriol) Oral; 0.75mcg,Oral 100 Dextrose ([id number]) Blood Pressure-sitting 131/48 mmHg Blood Pressure-sitting 13 5/55 mmHg Heart Rate 56 beats per minute Heart Rate 51 beats per minute Respiratory Rate 16 breaths per Respiratory Rate 20 breaths per minute minute Temperature 96.0 deg. F Temperature 96.2 deg. F September Weight 95.20 Weight 93.40 03:32:00 350 2.0 K, 160nre Hemodi alysis-AV Graft-Synthetic - Standard (PTFE), Left Upper Arm, Other/Unknown Heparin Sodium (Porcine) 1,000 Units/mL Systemic; 3000units,Intravenous - push 2021 kg kg 2.5 Ca, Optiflux Access Plac ed on July 23, 2022 Vitamin D (Calcitriol) Oral; 0.75mcg,Oral 1.0 Mg, 100 Dextrose ([id number]) Blood Pressure-sitting 167/65 mmHg Blood Pressure-sitting 14 1/64 mmHg Heart Rate 51 beats per minute Heart Rate 48 beats per minute Respiratory Rate 16 breaths per Respiratory Rate 15 breaths per minute minute Temperature 96.0 deg. F Temperature 96.8 deg. F
--- OUTSIDE RECORDS SUMMARY | 2022-10-18 10:04 | XMS_ITS | Continuity of Care Document ---
:1935 Author Organization [facility] Address [address] [place] [id number]- Care Team Providers Name Role Phone Joshua Schaeffer MD Primary Care Physician [place] [facility] [place] - 03/03/[address] [address] Attending Physician: Not on Staff, Attending MD Admitting Physician: Not on Staff, Admitting MD Referring Physician: Not on Staff, Referring MD Allergies, Adverse Reactions, Alerts No Known Medication Allergies Medications Ativan 0.5 mg oral tablet 1 tablet = 0.5 mg, By Mouth, 3 times a day, As needed for insomnia at bedtime, 0 Refills, Maintenance, 04/29/18 14:41:43 EDT Start Date: 04/29/18 Status: Orderedbisacodyl 10 mg rectal suppository 1 supp = 10 mg, Rectally, Daily, Insert 1 suppository rectally as needed for constipation, 0 Refills, Maintenance, 04/29/18 14:42:37 EDT Start Date: 04/29/18 Status: Orderedcalcitriol 0.5 mcg oral capsule 4 capsule = 2 mcg, By Mouth, Every Thursday, # 50 capsule, 3 Refills, Maintenance, 05/01/14 13:35:42, Capsule, 4 capsule By Mouth Every Thursday Start Date: 05/01/14 Status: OrderedCoreg 25 mg oral tablet 25 mg, 1, tablet, By Mouth, 2 times a day, hypertension. 9am and 8 pm, Refills 0, Maintenance, 04/29/18 14:43:32 EDT Start Date: 04/29/18 Status: OrderedDulera 200 mcg-5 mcg/inh inhalation aerosol 2 puffs, Inhalation, 2 times a day, 2 inhalation inhales two times a day related to unspecified asthma. 9am and 5 pm, 0 Refills, Maintenance, 04/29/18 14:44:38 EDT Start Date: 04/29/18 Status: Orderedergocalciferol 19794 iu oral capsule 1 capsule = 50,000 International_Units, By Mouth, Every week, # 12 capsule, 3 Refills, Maintenance, 05/01/14 13:34:29, 1 capsule By Mouth Every week Start Date: 05/01/14 Status: OrderedEstrace Vaginal Cream 0.1 mg/g = 1 Gm, Vaginally, Daily at bedtime, # 42.5 Gm, 0 Refills, Maintenance, 04/29/18 15:32:42 EDT Start Date: 04/29/18 Stop Date: 05/13/18 Status: OrderedEstrace Vaginal Cream 0.1 mg/g See Instructions, 1 Gm Vaginally Daily at bedtime 2 times a week after initial treatment for 2 weeks, # 42.5 Gm, 0 Refills, Maintenance, 04/29/18 15:33:27 EDT Start Date: 04/29/18 Status: OrderedFolic Acid Daily, 1 tablet by mouth once a day 9am, 0 Refills, Maintenance, 04/29/18 14:46:19 EDT Start Date: 04/29/18 Status: Orderedgabapentin 400 mg oral capsule 400 mg, 1, capsule, By Mouth, Daily, For back pain 8pm, Refills 0, Maintenance, 04/29/18 14:47:50 EDT Start Date: 04/29/18 Status: OrderedhydrALAZINE 10 mg oral tablet 10 mg, 1, tablet, By Mouth, 3 times a day, For blood pressure. 8am, 2pm, 8pm, Refills 0, Maintenance, 04/29/18 14:48:43 EDT Start Date: 04/29/18 Status: Orderedlisinopril 10 mg oral tablet 10 mg, 1, tablet, By Mouth, Daily, For blood pressure, 9am, Refills 0, Maintenance, 04/29/18 14:49:24 EDT Start Date: 04/29/18 Status: OrderedMCG/ACT Albuterol Sulfate HFA MCG/ACT Albuterol Sulfate HFA, Refills 0, Maintenance, As needed, 04/29/18 15:42:55 EDT, Compound Start Date: 04/29/18 Status: OrderedProAir HFA 90 mcg/inh inhalation aerosol with adapter 2, puffs, Inhalation, 4 times a day, Refills 0, Maintenance, 04/29/18 14:50:16 EDT Start Date: 04/29/18 Status: Orderedranitidine 150 mg oral capsule 1 capsule = 150 mg, By Mouth, Daily, 9 am, 0 Refills, Maintenance, 04/29/18 14:51:04 EDT Start Date: 04/29/18 Status: Orderedsodium bicarbonate 650 mg oral tablet 1 tablet = 650 mg, By Mouth, 3 times a day, 8am, 2pm, 8pm, 0 Refills, Maintenance, 04/29/18 14:51:39EDT Start Date: 04/29/18 Status: OrderedTessalon Perles 100 mg oral capsule 1 capsule = 100 mg, By Mouth, 3 times a day, As needed for cough, 0 Refills, Maintenance, 04/29/18 14:52:18 EDT Start Date: 04/29/18 Status: OrderedTylenol Tylenol, 325 mg, Refills 0, Maintenance, As needed, 04/29/18 15:43:25 EDT, Compound Start Date: 04/29/18 Status: Orderedvenlafaxine 150 mg oral capsule, extended release 150 mg, 1, capsule, By Mouth, Daily, depression/anxiety, 9am, Refills 0, Maintenance, 04/29/18 14:53:15 EDT Start Date: 04/29/18 Status: OrderedVitamin D3 oral tablet 93791oy, By Mouth, Daily, Every thursday 9am, 0 Refills, Maintenance, 04/29/18 14:54:19 EDT Start Date: 04/29/18 Status: Ordered Problem List Condition Effective Dates Status Health Status Informant Anxiety(Confirmed) Active Chronic disease(Confirmed) Active Depression(Confirmed) Active Social History Social History Type Response Smoking Status Never smoker entered on: 04/29/18 Sex
--- OUTSIDE RECORDS SUMMARY | 2022-10-18 10:04 | XMS_ITS | Continuity of Care Document ---
:1935 Author Organization [facility] Address [address] [place] [id number]- Care Team Providers Name Role Phone Joshua Schaeffer MD Primary Care Physician Encounter [facility] [place](s[place] 10/07/21 - 11/08/[address] [address] Discharge Disposition: A-D/C Home Attending Physician: Joshua Schaeffer MD Admitting Physician: Joshua Schaeffer MD Referring Physician: Joshua Schaeffer MD Allergies, Adverse Reactions, Alerts No Known Medication Allergies Immunizations Given and Recorded Vaccine Date Status Refusal Reason SARS-CoV-2 (COVID-19) mRNA BNT-162b2 vac 02/06/21 Given SARS-CoV-2 (COVID-19) mRNA BNT-162b2 vac 01/16/21 Given Medications Ativan 0.5 mg oral tablet 1 [...] 14:44:38 EDT Start Date: 04/29/18 Status: Orderedergocalciferol 14949 iu oral capsule 1 capsule = 50,000 [...] Date: 04/29/18 Status: OrderedVitamin D3 oral tablet 01837sa, By Mouth, Daily, Every thursday 9am, 0 Refills, Maintenance, 04/29/18 14:54:19 EDT Start Date: 04/29/18 Status: Ordered Problem List Condition Effective Dates Status Health Status Informant Anxiety(Confirmed) Active Chronic disease(Confirmed) Active Depression(Confirmed) Active Social History Social History Type Response Smoking Status Never smoker entered on: 04/29/18 Sex
--- OUTSIDE RECORDS SUMMARY | 2022-10-18 10:04 | XMS_ITS | Continuity of Care Document ---
:1935 Author Organization [facility] Address [address] [place] [id number]- Care Team Providers Name Role Phone Joshua Schaeffer MD Primary Care Physician [place] [facility] [place] 11/14/21 - 12/14/[address] [address] Attending Physician: Margarito Yañez Admitting Physician: Margarito Yañez Referring Physician: AdmtrMargarito Allergies, Adverse Reactions, Alerts No Known Medication Allergies Immunizations Given and Recorded Vaccine Date Status Refusal Reason SARS-CoV-2 (COVID-19) mRNA BNT-162b2 vac 02/06/21 Given SARS-CoV-2 (COVID-19) mRNA BNT-162b2 vac 01/16/21 Given Medications BuPROpion = 150 mg, By Mouth, Daily, 0 Refills, Maintenance, 11/13/21 10:04:00 EST, Partial fill upon patient request if the prescription is for a schedule II opioid drug. Start Date: 11/13/21 Status: OrderedCoreg 25 mg oral tablet 25 mg, 1, tablet, By Mouth, 2 times a day, Refills 0, Maintenance, 04/29/18 14:43:32 EDT Start Date: 04/29/18 Status: OrderedFamotidine = 20 mg, By Mouth, 2 times a day, 0 Refills, Maintenance, 11/13/21 9:59:00 EST, Partial fill upon patient request if the prescription is for a schedule II opioid drug. Start Date: 11/13/21 Status: OrderedGabapentin = 100 mg, By Mouth, Daily at bedtime, 0 Refills, Maintenance, 11/13/21 9:59:00 EST, Partial fill upon patient request if the prescription is for a schedule II opioid drug. Start Date: 11/13/21 Status: OrderedhydrALAZINE = 75 mg, By Mouth, 3 times a day, 0 Refills, Maintenance, 11/13/21 10:00:00 EST, Partial fill upon patient request if the prescription is for a schedule II opioid drug. Start Date: 11/13/21 Status: OrderedLoratadine 10 mg, By Mouth, Daily, Refills 0, Maintenance, 11/13/21 10:02:00 EST, Partial fill upon patient request if the prescription is for a schedule II opioid drug. Start Date: 11/13/21 Status: OrderedProAir HFA 90 mcg/inh inhalation aerosol with adapter 2, puffs, Inhalation, 4 times a day, PRN, Refills 0, Maintenance, 04/29/18 14:50:16 EDT Start Date: 04/29/18 Status: OrderedRosuvastatin = 20 mg, By Mouth, Daily at bedtime, 0 Refills, Maintenance, 11/13/21 10:03:00 EST, Partial fill upon patient request if the prescription is for a schedule II opioid drug. Start Date: 11/13/21 Status: Orderedsodium bicarbonate 325 mg oral tablet [...] Active Depression(Confirmed) Active Obese class I(Confirmed) Active Social History Social History Type Response Smoking Status Never smoker entered on: 04/29/18 Sex Medical Equipment Implanted Date:11/15/21 Target Site:Arm Left Description Quantity MRI Company Model GRAFT IMPRA STEPPED [id number] - BARD ([id number]) 1 Bard Unknown JONATHAN: No Information Assigning Authority: FDA
--- OUTSIDE RECORDS SUMMARY | 2022-10-18 10:04 | XMS_ITS | Continuity of Care Document ---
:1935 Author Organization [facility] Address [address] [place] [address]- Care Team Providers Name Role Phone Maksim DANIELS, Joshua Whitman Primary Care Physician Encounter [facility] Date(s): 01/18/20 - 01/18/[address] [address]- [facility] Attending Physician: Nelson Renee MD Allergies, Adverse Reactions, Alerts No Known [...] 14:44:38 EDT Start Date: 04/29/18 Status: Orderedergocalciferol 13529 iu oral capsule 1 capsule = 50,000 [...] Date: 04/29/18 Status: OrderedVitamin D3 oral tablet 00204zt, By Mouth, Daily, Every thursday 9am, 0 Refills, Maintenance, 04/29/18 14:54:19 EDT Start Date: 04/29/18 Status: Ordered Problem List Condition Effective Dates Status Health Status Informant Anxiety(Confirmed) Active Chronic disease(Confirmed) Active Depression(Confirmed) Active Social History Social History Type Response Smoking Status Never smoker entered on: 04/29/18 Sex
--- OUTSIDE RECORDS SUMMARY | 2022-10-18 10:04 | XMS_ITS | Continuity of Care Document ---
:1935 Author Organization [facility] Address [address] [place] [address]- Care Team Providers Name Role Phone Joshua Schaeffer MD Primary Care Physician Encounter 02/03/20 - 03/07/20 [facility] [address] [place] [address]- [facility] Discharge Disposition: CLIENT NO LONGER REQUIRES SKILLED CARE Allergies, Adverse Reactions, Alerts No Known Medication [...] 14:44:38 EDT Start Date: 04/29/18 Status: Orderedergocalciferol 53686 iu oral capsule 1 capsule = 50,000 [...] Date: 04/29/18 Status: OrderedVitamin D3 oral tablet 28852tz, By Mouth, Daily, Every thursday 9am, 0 Refills, Maintenance, 04/29/18 14:54:19 EDT Start Date: 04/29/18 Status: Ordered Problem List Condition Effective Dates Status Health Status Informant Anxiety(Confirmed) Active Chronic disease(Confirmed) Active Depression(Confirmed) Active Social History Social History Type Response Smoking Status Never smoker entered on: 04/29/18 Sex
--- OUTSIDE RECORDS SUMMARY | 2022-10-18 10:04 | XMS_ITS | Continuity of Care Document ---
:1935 Author Organization [facility] Address [address] [place] [id number]- Care Team Providers Name Role Phone Joshua Schaeffer MD Primary Care Physician Encounter [facility] Date(s): 11/15/21 - 11/15/[address] [id number]- Discharge Disposition: A-D/C Home Attending Physician: Ten [...] II opioid drug. Start Date: 11/13/21 Status: OrderedoxyCODONE 5 mg oral tablet 5 mg, 1, tablet, By Mouth, Every 6 hours, PRN, # 12 tablet, Refills 0, Tot. Refills 0, Acute 11/19/21 16:30:00 EST, as needed for pain, 11/15/21 16:23:00 EST, Route to Pharmacy Electronically, [facility] # [phone], Partial fill upon patient request if... Start Date: 11/15/21 Stop Date: 11/19/21 Status: OrderedProAir HFA 90 mcg/inh inhalation aerosol [...] oldest 1 2 3 [Reference Range]: Height 172.72 cm 172.72 cm (11/15/21 12:59 PM) (11/13/21 10:12 AM) Weight 104.2 kg (11/15/21 12:59 PM) Oxygen Saturation [94-100 95 % 99 % 99 % %] (11/15/21 5:15 PM) (11/15/21 5:00 PM) (11/15/21 4:45 PM) Pulse Rate [55-90 bpm] 62 bpm (11/15/21 12:59 PM) Body Mass Index 34.93 [18.5-24.99] *>HHI* (11/15/21 12:59 PM) Blood Pressure 163/62 mm Hg 160/66 mm Hg 160/56 mm Hg [90-138/55-84 mm Hg] *H* *H* *H* (11/15/21 5:15 PM) (11/15/21 5:00 PM) (11/15/21 4:45 PM) Respiratory Rate [16-30 15 br/min 15 br/min 14 br/mi n br/min] *L* *L* *L* (11/15/21 5:15 PM) (11/15/21 5:00 PM) (11/15/21 4:45 PM) Temperature [96.8-100.4 97.2 DegF 97.6 DegF 98.8 Deg F DegF] (11/15/21 6:00 PM) (11/15/21 5:00 PM) (11/15/21 4:25 PM) Liters per Minute 2 L/min 6 L/min (11/15/21 5:00 PM) (11/15/21 4:25 PM) Mode of Delivery (Oxygen) Room air Room air Nasal cannula (11/15/21 6:15 PM) (11/15/21 5:15 PM) (11/15/21 5:00 PM) Blood pressure sites Arm, right Arm, right Arm, right (11/15/21 5:15 PM) (11/15/21 4:45 PM) (11/15/21 4:31 PM) Temperature Route Temporal Temporal Temporal (11/15/21 6:00 PM) (11/15/21 5:00 PM) (11/15/21 4:25 PM) Dry Weight 104.2 kg 136.36 kg (11/15/21 12:59 PM) (11/13/21 10:12 AM) Weight Obtained Via Standing scale (11/15/21 12:59 PM) Dry Weight Obtained Via Standing scale (11/15/21 12:59 PM) Social History Social History Type Response Smoking Status Never smoker entered on: 04/29/18 Sex Medical Equipment Implanted Date:11/15/21 Target Site:Arm Left Description Quantity MRI Company Model GRAFT IMPRA STEPPED [id number] - BARD (T604-7) 1 Bard Unknown JONATHAN: No Information Assigning Authority: FDA
[2022-10-18 10:13] VITALS: BP 175/70; PULSE 55; RESP 18; O2SAT 98
--- NOTE | 2022-10-18 11:12 | ED_ITS ---
HPI - Fall General Chief Complaint: Fall Stated Complaint: FALL IN AM,FEELS DIZZY,NO C/O PAIN PER EMS Time Seen by Provider: 10/18/22 10:00 Source: patient Mode of arrival: EMS Limitations: no limitations History of Present Illness HPI Narrative: 87-year-old female who presents emergency department for evaluation of a fall. Patient states that she does fall frequently secondary to balance issues and the fact that her right leg sometimes allegra and gives out on her. She states that she was feeling fine when she got up this morning and has not been ill over the past several days. She states that she was reaching into her closet for a blouse when she fell landing on a box of marquez. She did not hit her head or lose consciousness. She states that she was unable to get up and had to call 911. Here in the emergency department she has no complaints. She denies headache, nausea or vomiting. She denies neck pain. She denies chest, abdominal pain or extremity pain. MD complaint: fall Onset (ago): hour(s) (1) Fall from: standing Fall witnessed: no Place fall occurred: home Loss of consciousness: none Prolonged down time: no Symptoms prior to fall: none Context: other (She lost her balance) Related Data Home Medications Medication Instructions Recorded Confirmed acetaminophen 325 mg tablet 650 mg PO Q4H PRN Pain (Scale 08/16/21 08/26/21 Score 1-3) albuterol sulfate 90 mcg/actuation 2 puff inhalation Q4H PRN 08/16/21 08/26/21 aerosol inhaler Shortness Of Breath bupropion HCl 150 mg 24 hr tablet, 1 tab PO DAILY 08/16/21 08/26/21 extended release carvedilol 25 mg tablet 1 tab PO BID 08/16/21 08/26/21 famotidine 20 mg tablet 1 tab PO BID 08/16/21 08/26/21 gabapentin 100 mg capsule 1 cap PO BEDTIME 08/16/21 08/26/21 hydralazine 50 mg tablet 1 tab PO TID 08/16/21 08/26/21 loratadine 10 mg tablet 10 mg PO DAILY PRN Allergy Symptoms 08/16/21 08/26/21 oxybutynin chloride 5 mg tablet 5 mg PO DAILY 08/16/21 08/26/21 sennosides 8.6 mg tablet (senna) 17.2 mg PO DAILY PRN Constipation 08/16/21 08/26/21 sodium bicarbonate 325 mg tablet 1 tab PO TID 08/16/21 08/26/21 umeclidinium 62.5 mcg/actuation 1 puff inhalation DAILY 08/16/21 08/26/21 blister powder for inhalation (Incruse Ellipta) atorvastatin 80 mg tablet 80 mg PO BEDTIME 08/26/21 08/26/21 Previous Rx's Medication Instructions Recorded compr.stocking,knee,long,small #2 ea 08/20/21 (T.E.D. Knee [facility] [place] [place] lorazepam 0.5 mg tablet 0.5 mg PO BEDTIME PRN Anxiety #30 09/22/22 tabs Allergies Allergy/AdvReac Type Severity Reaction Status Date / Time No Known Allergies Allergy Verified 08/16/21 15:17 Review of Systems Review of Systems: Yes all other systems are reviewed and are negative [facility] Past Medical History [facility] Narrative: Social history: She lives at home alone, she denies tobacco, alcohol and drug use. Medical History Acute hyperkalemia Bacteremia COPD (chronic obstructive pulmonary disease) High cholesterol HTN (hypertension) Kidney disease Weakness Social History Social History Household Members: None Housing: Apartment Do you presently have visiting nurse or other home services: Yes Alcohol intake: unknown Patient Tobacco Use Status: Never used Tobacco Advance Directives: No service: No Current occupational status: retired Physical Exam Vital Signs: Vital Signs: Last Vital Signs Temp 98.4 F 10/18/22 10:01 Pulse 55 10/18/22 10:13 Resp 18 10/18/22 10:13 BP 175/70 H 10/18/22 10:13 Pulse Ox 98 10/18/22 10:13 O2 Del Method 10/18/22 10:13 BMI result Body Mass Index 37.5 Const: General: cooperative and no acute distress Orientation/consciousness: oriented to person and oriented to place Limitations: no limitations HEENT: Head: Yes normal to inspection, Yes normocephalic and Yes atraumatic Ears: external ears normal General nose exam: Normal external nose present Face and sinus: Yes normal facial exam Mouth: Normal oral and palatal mucosa present Throat: Yes posterior oropharynx normal Eyes: General: appearance normal, both eyes and all related structures Pupils: Equal, round and reactive pupils present Neck: Neck: Yes normal visual inspection, Yes no lymphadenopathy, Yes trachea midline and Yes supple Chest: Chest palpation & inspection: normal inspection of the chest and normal palpation of entire chest wall Resp: Effort & Inspection: normal respiratory effort and able to speak in complete sentences Auscultation: clear to auscultation bilaterally Cardio: Rate: regular rate Rhythm: regular rhythm Heart sounds: S1 normal heart sound present, S2 normal heart sound present and no murmurs GI: Inspection: Yes normal to inspection Palpation (GI): Soft to palpation, nontender and no guarding Auscultation: normal bowel sounds : General: Yes no CVA tenderness Back/Spine/Pelvis: Back: no CVA tenderness Skin: General skin exam: no rashes or lesions noted Neuro: General: oriented to person and oriented to place Cranial nerves: Yes CN's II-XII intact bilaterally and Yes Equal, round and reactive pupils present Cognition (Neuro): normal cognition Motor exam (neuro): 5/5 motor strength present throughout Extrem: General: Yes normal to inspection Psych: Appearance: grossly normal Speech and movement: Normal speech and movement present Affect: normal affect Attitude: cooperative Thought process: Normal thought process present Thought content: Normal thought content present Course Course Course Narrative: 87-year-old female who presents emergency department for evaluation of a fall at home that occurred prior to her coming to the emergency department. Patient was reaching into her closet for a glass, lost her balance then fell. She was unable to get often called 911. Here in the emergency department she has no complaints. The patient's physical examination was unremarkable. Patient is a dialysis patient in she gets dialyzed on Tuesdays, and Saturdays and was supposed to be dialyzed today at 11:15. I encouraged the family to try to take her to dialysis but they are not sure if they can get her there and time. Told her that she should restrict the amount of fluid that she drinks over the next several days if she is not going to be dialyzed today. Given the she is scheduled to be dialyzed on Thursday as opposed to Thursday which should also help if she misses dialysis today. She was given printed and verbal instructions and discharged home. Discharge Plan Discharge Clinical Impression: Fall Qualifiers: Encounter type: initial encounter Qualified Code(s): W19.XXXA - Unspecified fall, initial encounter Patient Disposition: Home, Self-Care Additional Instructions: At this time I do not think that you have any serious injuries from your fall and I do not think that she had x-rays or blood work. If you cannot get dialyzed today, you should restrict the amount of fluid that you drink over the next 2 days until you get dialyzed on Thursday. Take Tylenol (acetaminophen) 500 mg pills, 2 pills every 4 to 6 hours as needed for pain. Follow-up with your doctor in 2 days. Please return to the emergency department if your symptoms get worse or if you develop any symptoms that are concerning to you. Prescriptions: No Action lorazepam 0.5 mg tablet 0.5 mg PO BEDTIME PRN (Reason: Anxiety) Qty: 30 1RF carvedilol 25 mg tablet 1 tab PO BID sodium bicarbonate 325 mg tablet 1 tab PO TID famotidine 20 mg tablet 1 tab PO BID hydralazine 50 mg tablet 1 tab PO TID gabapentin 100 mg capsule 1 cap PO BEDTIME bupropion HCl 150 mg tablet extended release 24 hr 1 tab PO DAILY Incruse Ellipta 62.5 mcg/actuation blister with device 1 puff inhalation DAILY sennosides [senna] 8.6 mg Tablet 17.2 mg PO DAILY PRN (Reason: Constipation) acetaminophen 325 mg Tablet 650 mg PO Q4H PRN (Reason: Pain (Scale Score 1-3)) albuterol sulfate 90 mcg/actuation Hfa Aerosol Inhaler 2 puff INHALATION Q4H PRN (Reason: Shortness Of Breath) loratadine 10 mg Tablet 10 mg PO DAILY PRN (Reason: Allergy Symptoms) oxybutynin chloride 5 mg Tablet 5 mg PO DAILY Hold Instructions: Resume on 08/22/21. dizziness improving , start in 2 days (DME) T.E.D. Knee [id number] Misc See Rx Instructions .Route Qty: 2 0RF Rx Instructions: As directed atorvastatin 80 mg Tablet 80 mg PO BEDTIME
== END 2022-10-18 13:10 | disposition home or self-care (01) ==
PROVIDERS: Emergency Provider Emergency Medicine Emergency Medical Services; PCP Internal Medicine
DX: Z04.3 Encounter for examination and observation following other accident (principal); R53.1 Weakness; Z91.81 History of falling
CPT/HCPCS: 99282; 99283

== ENCOUNTER 2023-01-16 14:38 | Emergency (ER) | payer MEDICARE, MEDICAID, SELFPAY ==
--- NOTE | ~2023-01-16 | CT_ITS ---
EXAMINATION: CT ABDOMEN AND PELVIS WITHOUT CONTRAST CLINICAL INFORMATION: Abdominal pain. COMPARISON: CT abdomen/pelvis 12/26/2015. TECHNIQUE: Multidetector volumetric imaging was performed from the superior aspect of the liver through the pubic symphysis. Sagittal and coronal reformatted images were obtained on the technologist's workstation. This CT examination was performed using dose optimization techniques as appropriate, variously including the following: *Automated exposure control *Adjustment of mA and/or kV according to patient size (this includes techniques or standardized protocols for targeted exams where dose is matched to indication/reason for exam; i.e. extremities or head) *Use of iterative reconstruction technique DLP: 806 mGy-cm FINDINGS: LUNG BASES: Multiple sub-2 mm mixed calcified and noncalcified pulmonary nodules. No focal airspace opacity or pleural effusion. Partially imaged coronary artery calcifications and aortic valve calcifications. LIVER, GALLBLADDER, AND BILIARY TREE: The liver is normal in size, shape, and attenuation. No focal hepatic lesion or biliary ductal dilatation is present. Cholecystectomy. PANCREAS: Diffuse fatty atrophy. No peripancreatic free fluid or fat stranding. The main duct is nondilated. SPLEEN: Unremarkable. ADRENAL GLANDS: Unremarkable. KIDNEYS AND URETERS: Bilateral cortical thinning suggesting chronic underlying renal medical disease. There is a water density simple appearing cyst in the anterior left kidney classified as Bosniak 1, for which no imaging follow-up is recommended. No nephrolithiasis or hydronephrosis. No significant perinephric fat stranding. BLADDER: Unremarkable. GASTROINTESTINAL TRACT: The stomach and the small bowel are nondilated. Normal appendix. Very mild fat stranding surrounding diverticuli in the sigmoid colon (5:17). No evidence of bowel obstruction. ABDOMINAL WALL: No significant hernia is appreciated. LYMPH NODES: No pathologically enlarged lymph nodes. A nonspecific rounded outpouching at the insertion of a right pulmonary vein (3:4) is unchanged since 2016 which is reassuring. Minimal haziness of the upper mesentery fat is unchanged since 2016. VASCULAR: Extensive atherosclerotic disease. Abdominal aorta is of normal diameter. PELVIC VISCERA: There is a 6.5 x 4.7 cm homogeneous simple fluid attenuating left ovarian lesion (3:74) that is increased in size from 3.5 x 3.1 cm in 2016. No free fluid. OSSEOUS STRUCTURES: Degenerative changes of the spine. Age-indeterminate superior endplate compression deformity at T12. CT/CT abdomen pelvis wo IV con IMPRESSION: 1. Very mild fat stranding surrounding diverticuli in the sigmoid colon suggesting mild acute diverticulitis in the appropriate clinical context. 2. Age-indeterminate superior endplate compression deformity at T12. Correlate with point tenderness 3. A 6.5 cm homogeneous simple fluid attenuating left ovarian lesion has increased in size since 2016. Given large size and growth, correlation with a pelvic MRI and surgical consultation is recommended. 4. Multiple sub-2 mm pulmonary nodules in the lung bases. Assuming patient has no history of malignancy, recommend follow-up per Fleischner Society recommendations. According to the UPDATED 2017 Fleischner Society recommendations, the advised followup imaging for solid nodules < 6 mm is: LOW RISK PATIENT: No routine follow up. HIGH RISK PATIENT: Optional CT at 12 months.
[2023-01-16 14:45] VITALS: BP 123/67; BP 127/95; PULSE 58; PULSE 60; RESP 18; TEMP 36.8; O2SAT 97; O2SAT 98; BMI 36.3
--- NOTE | 2023-01-16 15:19 | ED.ABDPAIN ---
HPI - Abdominal Pain General Chief Complaint: Abdominal Pain Stated Complaint: Low abd pain per EMS Time Seen by Provider: 01/16/23 14:52 Source: patient Limitations: no limitations History of Present Illness HPI narrative: This is an 87 years old the female with history of chronic renal failure on hemodialysis presented to emergency room complaining of lower abdominal pain which she has been going on for about the intermittently a month, she has some nausea no vomiting she is a she had diarrhea this morning which relieved the pain. MD elicited complaint: abdominal pain Pertinent past history: none Pain Consistency: now resolved Location: other (Lower abdomen) Severity: mild Quality: cramping Radiation: none Related Data Home Medications Medication Instructions Recorded Confirmed acetaminophen 325 mg tablet 650 mg PO Q4H PRN Pain (Scale 08/16/21 08/26/21 Score 1-3) albuterol sulfate 90 mcg/actuation 2 puff inhalation Q4H PRN 08/16/21 08/26/21 aerosol inhaler Shortness Of Breath carvedilol 25 mg tablet 1 tab PO BID 08/16/21 08/26/21 famotidine 20 mg tablet 1 tab PO BID 08/16/21 08/26/21 gabapentin 100 mg capsule 1 cap PO BEDTIME 08/16/21 08/26/21 hydralazine 50 mg tablet 1 tab PO TID 08/16/21 08/26/21 loratadine 10 mg tablet 10 mg PO DAILY PRN Allergy Symptoms 08/16/21 08/26/21 oxybutynin chloride 5 mg tablet 5 mg PO DAILY 08/16/21 08/26/21 sennosides 8.6 mg tablet (senna) 17.2 mg PO DAILY PRN Constipation 08/16/21 08/26/21 sodium bicarbonate 325 mg tablet 1 tab PO TID 08/16/21 08/26/21 umeclidinium 62.5 mcg/actuation 1 puff inhalation DAILY 08/16/21 08/26/21 blister powder for inhalation (Incruse Ellipta) atorvastatin 80 mg tablet 80 mg PO BEDTIME 08/26/21 08/26/21 Previous Rx's Medication Instructions Recorded compr.stocking,knee,long,small #2 ea 08/20/21 (T.E.D. Knee [facility] [place]) lorazepam 0.5 mg tablet 0.5 mg PO BEDTIME PRN Anxiety #30 10/24/22 tabs bupropion HCl 150 mg 24 hr tablet, 150 mg PO DAILY #30 tabs 01/13/23 extended release Allergies Allergy/AdvReac Type Severity Reaction Status Date / Time No Known Allergies Allergy Verified 08/16/21 15:17 Review of Systems Constitutional: Reports no additional constitutional complaints Eyes: Reports no additional eye complaints Reports system reviewed and no additional complaints, except as documented Cardiovascular: Reports no additional cardiovascular complaints Respiratory: Reports no additional respiratory complaints [facility] Past Medical History Medical History Acute hyperkalemia Bacteremia COPD (chronic obstructive pulmonary disease) High cholesterol HTN (hypertension) Kidney disease Weakness Social History Social History Household Members: None Housing: Apartment Do you presently have visiting nurse or other home services: Yes Alcohol intake: unknown Patient Tobacco Use Status: Never used Tobacco Advance Directives: No Advance Directives Information Provided: Yes service: No Current occupational status: retired Physical Exam ED Vital Signs: Vital Signs - 24 hr 01/16/23 14:45 Temperature 98.2 F Pulse Rate 58 Respiratory Rate 18 Blood Pressure 123/67 Pulse Oximetry 97 Oxygen Delivery Method Room Air BMI result Body Mass Index 36.3 Const Nutritional Appearance: average body habitus and well nourished Orientation/consciousness: patient oriented x3 Limitations: no limitations HENMT Head: Yes normal to inspection General nose exam: Normal external nose present Face and sinus: Yes normal facial exam Mouth: Normal oral and palatal mucosa present Throat: Yes posterior oropharynx normal Neck Neck: Yes full ROM and Yes no lymphadenopathy Chest Chest palpation & inspection: normal inspection of the chest Resp Effort & Inspection: normal respiratory effort and able to speak in complete sentences Auscultation: clear to auscultation bilaterally Cardio Jugular venous distension: no JVD Rate: regular rate Rhythm: regular rhythm GI Inspection: Yes normal to inspection Palpation (GI): Soft to palpation, not firm, nontender, no guarding and not rigid Auscultation: normal bowel sounds Skin General skin exam: no rashes or lesions noted and elasticity normal Lesions: no lesions Rashes: no rashes Neuro General: patient oriented x3 Extrem General: Yes normal to inspection Right upper extremity: normal to inspection Course Reevaluation(s) Reevaluation #1: signed out to Dr Lemons ct scan pending Time: 16:32 Medical Decision Making Medical Decision Making [facility] Narrative: Patient presented with abdominal pain history of chronic renal failure get a dry CT scan and reexam Differential Diagnosis Differential Diagnoses: The differential diagnosis associated with the presentation includes Colitis/ diverticulitis Lab Data [facility] Lab Attestation statement: I reviewed the patient's lab results. 01/16/23 15:01/16/23 15: Labs: Lab Results 01/16/23 01/16/23 Range/Units 15: 15: WBC 5.9 (4.8-10.8) X10*3/uL RBC 3.50 L (4.20-5.50) X10*6/uL Hgb 10.4 L (12.0-16.0) g/dl Hct 33.7 L (37.0-47.0) % MCV 96.3 (80.0-98.0) fL MCH 29.7 (27.0-33.0) pg MCHC 30.9 L (31.0-35.0) g/dl RDW 15.8 (11.0-16.0) % Plt Count 152 L (160-400) X10*3/uL MPV 9.5 (9.4-12.3) fL Immature Gran % (Auto) 0.3 (0.0-0.4) % Neut % (Auto) 67.5 (45-73) % Lymph % (Auto) 19.3 L (20-40) % [place] % (Auto) 8.3 (2-11) % Eos % (Auto) 4.1 H (0-4) % Baso % (Auto) 0.5 (0-2) % Lymph # (Auto) 1.1 L (1.2-4.9) X10*3/uL [place] # (Auto) 0.5 (0.1-1.2) X10*3/uL Eos # (Auto) 0.2 (0.0-0.4) X10*3/uL Baso # (Auto) 0.0 (0.0-0.2) X10*3/uL Abs Immat Gran (auto) 0.02 (0.00-0.03) X10*3/uL Absolute Neuts (auto) 4.0 (2.0-8.3) x10*3/uL Absolute Nucleated RBC 0.000 (0.0-0.012) X10*3/uL Nucleated RBC % (auto) 0.0 (0.0-0.2) /100WBC Sodium 141 (135-145) mmol/L Potassium 5.2 H D (3.3-5.1) mmol/L Chloride 105 (96-108) mmol/L Carbon Dioxide 27 (22-29) mmol/L Anion Gap 14 (12-20) BUN 28 H (9-16) mg/dL Creatinine 4.48 H* (0.5-1.4) mg/dL Estim Creat Clear Calc 9.5 Estimated GFR 9 Random Glucose 138 H (60-115) mg/dL Calcium 9.3 D (8.4-10.2) mg/dL Total Bilirubin 0.8 (0.0-1.0) mg/dL AST 162 H (5-31) U/L ALT 88 H (0-31) U/L Alkaline Phosphatase 96 (39-117) U/L Total Protein 5.7 L (6.5-8.0) g/dL Albumin 3.3 L (3.5-5.0) g/dL Lipase 13 (8-78) U/L Medications Administered Discontinued Medications Generic Name Dose Route Start Last Admin Trade Name Freq PRN Reason Stop Dose Admin Ondansetron HCl 4 mg 01/16/23 15:18 01/16/23 15:32 Ondansetron Hcl 4 Mg/2 Ml Vial IVPUSH 01/16/23 15:19 4 mg ONCE ONE Administration Discharge Plan Discharge Clinical Impression: Abdominal pain Patient Disposition: Still a Patient Prescriptions: No Action lorazepam 0.5 mg tablet 0.5 mg PO BEDTIME PRN (Reason: Anxiety) Qty: 30 1RF bupropion HCl 150 mg tablet extended release 24 hr 150 mg PO DAILY Qty: 30 1RF carvedilol 25 mg tablet 1 tab PO BID sodium bicarbonate 325 mg tablet 1 tab PO TID famotidine 20 mg tablet 1 tab PO BID hydralazine 50 mg tablet 1 tab PO TID gabapentin 100 mg capsule 1 cap PO BEDTIME Incruse Ellipta 62.5 mcg/actuation blister with device 1 puff inhalation DAILY sennosides [senna] 8.6 mg Tablet 17.2 mg PO DAILY PRN (Reason: Constipation) acetaminophen 325 mg Tablet 650 mg PO Q4H PRN (Reason: Pain (Scale Score 1-3)) albuterol sulfate 90 mcg/actuation Hfa Aerosol Inhaler 2 puff INHALATION Q4H PRN (Reason: Shortness Of Breath) loratadine 10 mg Tablet 10 mg PO DAILY PRN (Reason: Allergy Symptoms) oxybutynin chloride 5 mg Tablet 5 mg PO DAILY Hold Instructions: Resume on 08/22/21. dizziness improving , start in 2 days (DME) T.E.D. Knee Mtfjgy-O-Jpyv Misc See Rx Instructions .Route Qty: 2 0RF Rx Instructions: As directed atorvastatin 80 mg Tablet 80 mg PO BEDTIME
[2023-01-16] MEDS: ondansetron HCL 4 MG/2 ML VIAL IVPUSH (15:32)
[2023-01-16 15:35] LABS: MANUAL DIFF FLAG NO
[2023-01-16 15:37] LABS: Basophils Percent Auto 0.5 % (0-2); Eosinophils Absolute Auto 0.2 X10*3/uL (0.0-0.4); Eosinophils Percent Auto 4.1 % (0-4); Hematocrit 33.7 % (37.0-47.0); Hemoglobin 10.4 g/dl (12.0-16.0); Imm Gran Abs Auto 0.02 X10*3/uL (0.00-0.03); Imm Gran Pct Auto 0.3 % (0.0-0.4); Lymphocytes Absolute Auto 1.1 X10*3/uL (1.2-4.9); Lymphocytes Percent Auto 19.3 % (20-40); Mean Corpuscular HGB Conc 30.9 g/dl (31.0-35.0); Mean Corpuscular Hemoglobin 29.7 pg (27.0-33.0); Mean Corpuscular Volume 96.3 fL (80.0-98.0); Mean Platelet Volume 9.5 fL (9.4-12.3); Monocytes Absolute Auto 0.5 X10*3/uL (0.1-1.2); Monocytes Percent Auto 8.3 % (2-11); Neutrophils Percent Auto 67.5 % (45-73); Platelet Count 152 X10*3/uL (160-400); Red Cell Distribution Width 15.8 % (11.0-16.0); White Blood Count 5.9 X10*3/uL (4.8-10.8)
[2023-01-16 15:55] LABS: Alanine Aminotransferase 88 U/L (0-31); Albumin Level 3.3 g/dL (3.5-5.0); Alkaline Phosphatase 96 U/L (39-117); Anion Gap 14 (12-20); Aspartate Amino Transferase 162 U/L (5-31); Bilirubin Total 0.8 mg/dL (0.0-1.0); Blood Urea Nitrogen 28 mg/dL (9-16); Calcium 9.3 mg/dL (8.4-10.2); Carbon Dioxide 27 mmol/L (22-29); Chloride 105 mmol/L (96-108); Creatinine Clr Calc Pharmacy 9.5; Estimated Glomerular Filt Rate 9; Glucose Random 138 mg/dL (60-115); Lipase 13 U/L (8-78); Potassium 5.2 mmol/L (3.3-5.1); Sodium 141 mmol/L (135-145); Total Protein 5.7 g/dL (6.5-8.0)
--- OUTSIDE RECORDS SUMMARY | 2023-01-16 16:06 | XMS_ITS ---
:1935 Author Organization [facility], NA DOCUMENT DISCLAIMER Multiple document versions may exist, please be sure you review the latest version. The information in the [facility] Continuity of Care Document represents a summary of certain health and medical information. It may not contain the complete medical history for the patient and should be independently verified. The represented time in the document is Eastern Time. PROBLEMS Problem Code Status Onset Date Moderate protein-calorie malnutrition E44.0 Active April 28, 2022 Hyperlipidemia, unspecified E78.5 Active [facility] 2021 Hypothyroidism, unspecified E03.9 Active [facility] 2021 Anaphylactic shock, unspecified, initial T78.2XXA Activ e December 25, 2021 encounter Allergy, unspecified, initial encounter T78.40XA Active December 25, 2021 Dependence on renal dialysis Z99.2 Active J anuary 2021 Hypotension of hemodialysis I95.3 Active [facility] 2021 Cramp and spasm R25.2 Active December [...] 2021 End stage renal disease N18.6 Active [facility] 2021 Hypertensive chronic kidney disease with I12.9 [...] Sucrose 1X Week 50 mg Intravenous - December 25December 17, Active (Venofer) push 2022 2023 Vitamin D Every 0.75 mcg Oral July Active (Calcitriol) Treatment 2021 Oral Home Medications Medication Instructions Dosage Route Start Date End Date Statu s bupropion HCl Take by mouth 1 tablet ORAL December 24, Active 150 mg once a day 2021 famotidine 20 mg Take by mouth 1 tablet ORAL March 06, Active twice a day 2021 gabapentin 100 Take by mouth 1 capsule ORAL March 06, Active mg once a day 2021 loratadine 10 mg Take by mouth 1 tablet ORAL March 06, Active once a day 2021 lorazepam 0.5 mg ORAL July propranolol 60 Take by mouth 1 tablet ORAL January 06, Active mg twice a day 2022 Renvela 800 mg Take by mouth 1 [...] Sign Value Date / Time Blood Pressure-sitting 121/51 mmHg January 15, 2023 11:11 AM Heart Rate 48 beats per minute January 15, 2023 11 :11 AM Respiratory Rate 20 breaths per minute January 15, 2023 11:11 AM Temperature 96.0 deg. F January 15, 2023 11 :11 AM Weight Vital Sign Value Date / Time Estimated Dry Weight 90.5 kg January 15, 2023 1 1:59 PM Pre-Dialysis 92.90 kg January 15, 2023 11 :11 AM Post-Dialysis 90.90 kg January 15, 2023 11 :11 AM Other Other Value Date / Time Height 150 cm December 25, 2021 12: 00 AM HEALTH CONCERNS Tuberculosis Testing TST Date Administered TST Date Read TST Result 12/17/2021 12/19/2021 Negative (<5) mm LAB RESULTS Hematology Result Type Result Value Relevant Reference Interpretation Date Range Iron 108 mcg/dL Females: 30-160 - December 18, 2022 mcg/dL Males: 45-160 mcg/dL UIBC/TIBC 185 mcg/dL 155-355 mcg/dL - December 18 023 TIBC (Calc) 293 mcg/dL 185-515 mcg/dL - December 18 Transferrin Sat. 37 % 20-55% - December 18, 2022 (Calc) Ferritin 481 ng/mL Males: 22 - 322 High December 18, 2022 ng/mL; Females: 10 - 291 ng/mL Hemoglobin x 3 30.9 % Male: 14.0 - 18.0 Low December 18, 2022 g/dL; Female: 12.0-16.0 g/dL HGB 10.3 g/dL Males: 14.0 - 18.0 Low November 302022 g/dL Females: 12.0 - 16.0 g/dL HGB 10.9 g/dL Males: 14.0 - 18.0 Low December 012022 g/dL Females: 12.0 - 16.0 g/dL Hemoglobin x 3 32.7 % Male: 14.0 - 18.0 Low December 25, 2022 g/dL; Female: 12.0-16.0 g/dL Hemoglobin x 3 33.9 % Male: 14.0 - 18.0 Low January 01, 2023 g/dL; Female: 12.0-16.0 g/dL HGB 11.3 g/dL Males: 14.0 - 18.0 Low January 01, 2023 g/dL Females: 12.0 - 16.0 g/dL Hemoglobin x 3 33.3 % Male: 14.0 - 18.0 Low January 08, 2023 g/dL; Female: 12.0-16.0 g/dL HGB 11.1 g/dL Males: 14.0 - 18.0 Low January 08, 2023 g/dL Females: 12.0 - 16.0 g/dL HGB 10.4 g/dL Males: 14.0 - 18.0 Low January 15, 2023 g/dL Females: 12.0 - 16.0 g/dL Hemoglobin x 3 31.2 % Male: 14.0 - 18.0 Low January 15, 2023 g/dL; Female: 12.0-16.0 g/dL Metabolic/Renal Result Type Result Value Relevant Reference Interpretation Date Range Creatinine, Serum 4.43 mg/dL 0.6-1.3 mg/dL High November 302022 Sodium 142 mEq/L 136-145 mEq/L - December 18 Potassium 4.2 mEq/L 3.5-5.1 mEq/L - December 18 Bicarbonate 26 mEq/L 22-29 mEq/L - December 18 URR, Calc 76 % 65 - 80% - January 01 BUN 33 mg/dL 6-19 mg/dl High January 01 BUN, Post 8 mg/dL 6-19 mg/dL - January 01 HD Adequacy Result Type Result Value Relevant Reference Interpretation Date Range spKt/V ([place]irdas 1.60 No Reference range Normal Febr 2022 II) provided eKt/V 1.37 No Reference range Normal January 01, 2023 ([place]) provided Bone/Mineral Result Type Result Value Relevant Reference Interpretation Date Range Corrected Ca x P 36 < 55 - December 18, 2022 Product PTH-Intact, Plasma 244 pg/mL 16 to 80 pg/mL High December 18, 2022 Calcium, Total 9.1 mg/dL 8.4-10.2 mg/dL - December 18, 2022 Phosphorus 3.7 mg/dL 2.6-4.5 mg/dL - December 18 23 Ca x P Product 34 < 55 - December 18 023 Calcium, Total 9.6 mg/dL 8.4-10.2 mg/dL - December Liver/Nutrition Result Type Result Value Relevant Reference Interpretation Date Range Albumin (BCG) 3.2 g/dL 3.5-5.2 g/dL Low December 18 SGPT (ALT) 26 U/L No reference range - November 302022 provided Albumin (BCG) 3.4 g/dL 3.5-5.2 g/dL Low December 25 Infectious Diseases Result Type Result Value Relevant Reference Interpretation Date Range Hep B Surface Ab 319 mIU/mL < 10 mIU/mL, Non- - April 302021 (anti-HBs) Immune Hep B core Ab Negative Negative - November 20 022 Total (anti-HBc) HCV Ab (anti-HCV) Nonreactive Non-Reactive - October 312021 Hep B Surface Ag Negative Negative - December 18, 2022 (HBsAg) DIALYSIS PRESCRIPTION Conventional Hemodialysis Data Element Value Order Date/Time January 15, 2023 Frequency 3X Week Treatment Days TueThuSat Dialyzer 160NRe Optiflux Treatment Time (Total Minutes) 210 min Blood Flow Rate (mL/min) 350 mL/min Dialysate Flow Rate Manual 500 Estimated Dry Weight 90.5 kg Dialysate Concentrate 2.0 K, 2.5 Ca, 1.0 Mg, 100 D extrose ([id number]) Sodium (mEq/L) 142 mEq/L Bicarb Machine Setting (mEq/L) 31 mEq/L Dialysis Access Hemodialysis-AV Graft-Synthe tic - Standard (PTFE), Left Upper Arm, Other/Unknown Access Placed on July 23, 2022 Arterial Needle Size 16g1 Venous Needle Size 16g1 IMMUNIZATIONS Vaccine Date Dose Route Status COVID-September 11, 2022 0.5 mL Intramuscular Co mpleted Vaccine, Bivalent, Booster FLUZONE High-Dose September 04, 2022 0.7 mL Intramuscular C ompleted Quadrivalent a COVID-May 15, 2022 0.25 mL Intramuscular Compl eted Vaccine, Booster HEPLISAV-B, series 4 of April 17, 2022 20.0 mcg Intramuscular Completed 4 HEPLISAV-B, series 3 of February 13, 2022 20.0 mcg Intramuscula r Completed 4 PNEUMOVAX January 30, 2022 0.5 mL Intramuscular Complete d HEPLISAV-B, series 2 of January 18, 2022 20.0 mcg Intramusc ular Completed 4 HEPLISAV-B, series 1 of December 26, 2021 20.0 mcg Intramuscu lar Completed 4 TRANSPLANT WAITLIST STATUS No Information on Transplant Waitlist Status ADVANCE DIRECTIVES Directive Description Ordered By Effective Date Resuscitation status Full Code Lino Lindquist Dec 26 3 DIALYSIS TREATMENTS Conventional Hemodialysis Date Pre-Treatment Post-Treatment Duration BFR Dialysate Dialyzer Dialysis Meds Vitals Vitals (hr) (mL/min) Access Admin December Weight 92.70 Weight 90.70 03:31:00 350 2.0 K, 160nre Hemodi alysis-AV Graft-Synthetic - Standard (PTFE), Left Upper Arm, Other/Unknown Heparin Sodium (Porcine) 1,000 Units/mL Systemic; 3000units,Intravenous - push 2022 kg kg 2.5 Ca, Optiflux Access Plac ed on July 23, 2022 Vitamin D (Calcitriol) Oral; 0.75mcg,Oral 1.0 Mg, 100 Dextrose ([id number]) Blood Pressure-sitting 106/51 mmHg Blood Pressure-sitting 14 4/56 mmHg Heart Rate 47 beats per minute Heart Rate 48 beats per minute Respiratory Rate 16 breaths per Respiratory Rate 12 breaths per minute minute Temperature 96.2 deg. F Temperature 96.0 deg. F December Weight 93.70 Weight 90.90 03:33:00 350 2.0 K, 160nre Hemodi alysis-AV Graft-Synthetic - Standard (PTFE), Left Upper Arm, Other/Unknown Heparin Sodium (Porcine) 1,000 Units/mL Systemic; 3000units,Intravenous - push 2022 kg kg 2.5 Ca, Optiflux Access Plac ed on July 23, 2022 Vitamin D (Calcitriol) Oral; 0.75mcg,Oral 1.0 Mg, 100 Dextrose ([id number]) Blood Pressure-sitting 123/62 mmHg Blood Pressure-sitting 12 2/55 mmHg Heart Rate 54 beats per minute Heart Rate 43 beats per minute Respiratory Rate 18 breaths per Respiratory Rate 16 breaths per minute minute Temperature 96.0 deg. F Temperature 96.8 deg. F December Weight 92.90 Weight 90.90 03:32:00 350 2.0 K, 160nre Hemodi alysis-AV Graft-Synthetic - Standard (PTFE), Left Upper Arm, Other/Unknown Heparin Sodium (Porcine) 1,000 Units/mL Systemic; 3000units,Intravenous - push 2022 kg kg 2.5 Ca, Optiflux Access Plac ed on July 23, 2022 Iron Sucrose (Venofer); 50mg,Intravenous - push 1.0 Mg, Vitamin D (C alcitriol) Oral; 0.75mcg,Oral 100 Dextrose ([id number]) Blood Pressure-sitting 105/56 mmHg Blood Pressure-sitting 12 1/51 mmHg Heart Rate 50 beats per minute Heart Rate 48 beats per minute Respiratory Rate 20 breaths per Respiratory Rate 20 breaths per minute minute Temperature 96.0 deg. F Temperature 96.0 deg. F
[2023-01-16] MEDS: Amoxicillin/Potassium Clav 875 MG TABLET PO (18:29)
== END 2023-01-16 19:35 | disposition home or self-care (01) ==
PROVIDERS: Emergency Medicine; Emergency Provider Emergency Medicine; PCP Internal Medicine
DX: K57.32 Diverticulitis of large intestine without perforation or abscess without bleeding (principal); R10.9 Unspecified abdominal pain; I12.0 Hypertensive chronic kidney disease with stage 5 chronic kidney disease or end stage renal disease; N18.6 End stage renal disease; E78.5 Hyperlipidemia, unspecified; Z99.2 Dependence on renal dialysis; Z79.899 Other long term (current) drug therapy; Z79.02 Long term (current) use of antithrombotics/antiplatelets
CPT/HCPCS: 36415; 74176; 80053; 83690; 85025; 96374; 99282; 99284; J2405

== ENCOUNTER 2023-01-24 08:23 | Inpatient (IN) | payer MEDICARE, MEDICAID, SELFPAY ==
[2023-01-24] VITALS (7 sets, daily range): BP systolic 128–161; BP diastolic 49–88; PULSE 69–84; RESP 16–18; TEMP 36.4–37.6; O2SAT 94–98; BMI 36.6; BMI 36.8
--- NOTE | ~2023-01-24 | CT_ITS ---
CT head/brain wo IV con CLINICAL INFORMATION: Reason for Exam fall COMPARISON: No prior CT scan available for comparison. TECHNIQUE: Department standard protocol. This CT examination was performed using dose optimization techniques as appropriate, variously including the following: *Automated exposure control *Adjustment of mA and/or kV according to patient size (this includes techniques or standardized protocols for targeted exams where dose is matched to indication/reason for exam; i.e. extremities or head) *Use of iterative reconstruction technique DLP: 1181 mGy-cm FINDINGS: CEREBRAL HEMISPHERES: There is no evidence of intra-axial or extra-axial mass, hemorrhage or acute infarct. BRAIN PARENCHYMA: Normal negro-white matter differentiation. SUBDURAL SPACE: No bleed. BASAL GANGLIA AND PINEAL GLAND: Unremarkable VENTRICLES: Symmetric and normal in size. CEREBELLUM AND BRAINSTEM: No space-occupying mass, hemorrhage or acute infarct. CEREBELLOPONTINE ANGLES: No lesion found. ORBITS: No intraorbital mass. VESSELS: Unremarkable SKULL BASE: Unremarkable INCLUDED SINUSES AT SKULL BASE: Clear SKULL AND SKIN: Thickening of the skull frontal lobe compatible with hyperostosis frontalis. No fracture or bone lesion found. CT/CT head/brain wo IV con IMPRESSION: No CT evidence of intracranial space-occupying mass, bleed or infarct. Hyperostosis frontalis. No skull fracture.
--- NOTE | ~2023-01-24 | CT_ITS ---
EXAMINATION: CT CERVICAL SPINE CLINICAL INFORMATION: Fall COMPARISON: No prior CT available, TECHNIQUE: Computed axial sagittal and coronal images acquired using department's standard protocol. This CT examination was performed using dose optimization techniques as appropriate, variously including the following: *Automated exposure control *Adjustment of mA and/or kV according to patient size (this includes techniques or standardized protocols for targeted exams where dose is matched to indication/reason for exam; i.e. extremities or head) *Use of iterative reconstruction technique CONTRAST: None DLP: 427 mGy-cm FINDINGS: SKULL BASE: Visualized structures at skull base are normal, Included facial sinuses are clear, CERVICAL VERTEBRAE: Seven cervical vertebrae identified maintaining proper height and alignment, DISCS: Loss of disc height and developed osteophyte from the edges of endplates at multiple levels especially at C5-C6 and C6-C7 suggests underlying degenerative disc disease. There are facet joints arthropathy at C4-C5, C5-C6 and C6-C7. C1-C2: There is no CT evidence of significant osseous narrowing of the central canal or neural foramen. C2-C3: There is no CT evidence of significant osseous narrowing of the central canal or neural foramen. C3-C4: Bilateral facet joints arthropathy. No central or foraminal stenosis. No fracture. C4-C5: Bilateral facet joints arthropathy. No central or foraminal stenosis. No fracture. C5-C6: Developed osteophyte ridge from the endplates cause bilateral foraminal narrowing left more than right. Cannot rule out left foraminal stenosis. No significant osseous narrowing of the central canal. Bilateral facet joints arthropathy. No fracture. C6-C7: There is no CT evidence of significant osseous narrowing of the central canal or neural foramen. C7-T1: There is no CT evidence of significant osseous narrowing of the central canal or neural foramen. PARAVERTEBRAL SOFT TISSUE: Paravertebral soft tissues unremarkable. CT/CT cervical spine wo IV con IMPRESSION: * No CT evidence of cervical spine fracture. * Loss of disc height and developed osteophyte from the edges of endplates at multiple levels suggest underlying degenerative disc disease. * Developed osteophyte from the endplates cause bilateral foraminal narrowing at C5-C6 left more than right, cannot rule out left foraminal stenosis. If patient has neurological symptoms may consider correlation with follow-up MRI. * Facet joints arthropathy at C4-C5, C5-C6 and C6-C7.
--- NOTE | ~2023-01-24 | XR_ITS ---
EXAMINATION: XR chest 1V CLINICAL INFORMATION: Reason for Exam dizziness COMPARISON: Prior chest x-ray 08/16/2021 TECHNIQUE: XR chest 1V Tubes and lines: Left subclavian/brachial stent in place. Lungs and pleura: Both lungs are clear. Heart and mediastinum: The mediastinum is within normal limits.. Bones/soft tissue: Skeletal structures included are normal for patient's age. XR/XR chest 1V IMPRESSION: No radiographic evidence of acute cardiopulmonary disease.
--- NOTE | 2023-01-24 08:57 | ECG_ITS ---
Test Reason : FALL Blood Pressure : / mmHG Vent. Rate : 072 BPM Atrial Rate : 072 BPM P-R Int : 208 ms QRS Dur : 088 ms QT Int : 382 ms P-R-T Axes : 092 015 087 degrees QTc Int : 418 ms Artifact in tracing Normal sinus rhythm Nonspecific ST and T wave abnormality Borderline ECG When compared with ECG of 26-AUG-2021 07:41, No significant change was found Referred By: Radha Hyatt Electronically Signed By:SPENCER MORATAYA
--- NOTE | 2023-01-24 09:01 | ED_ITS ---
HPI - General Adult General Chief complaint: Fall Stated complaint: L KNEE GAVE OUT/FALL ON FLOOR HOURS,WEAK Time Seen by Provider: 01/24/23 08:34 Source: patient and EMS Mode of arrival: EMS History of Present Illness HPI narrative: 87-year-old female with a past medical history of COPD, HLD, HTN, CKD on HD (Thu//Thu), presenting to ED via EMS s/p fall this morning around 5:00AM, patient reports feeling dizzy prior to fall, denies head trauma or LOC. Reports generalized fatigue / weakness, SOB, and neck pain. Patient lives home alone states was on the ground for unknown amount of time. Denies fever, chills, chest pain, abdominal pain, nausea /vomiting Onset (ago): unknown Related Data Home Medications Medication Instructions Recorded Confirmed carvedilol 25 mg tablet 1 tab PO BID 08/16/21 01/24/23 gabapentin 100 mg capsule 1 cap PO BEDTIME 08/16/21 01/24/23 aspirin 81 mg tablet,delayed 81 mg PO DAILY 01/24/23 01/24/23 release bupropion HCl 150 mg 24 hr tablet, 1 tab PO DAILY 01/24/23 01/24/23 extended release fexofenadine 180 mg tablet 180 mg PO DAILY PRN Allergy 01/24/23 01/24/23 (Anastasiia Allergy) Symptoms lidocaine 5 % topical patch 1 patch topical DAILY 01/24/23 01/24/23 lidocaine-prilocaine 2.5 %-2.5 % See Rx Instructions .Route .COMPLEX 01/24/23 01/24/23 topical cream propranolol 60 mg tablet 1 tab PO BID 01/24/23 01/24/23 rosuvastatin 20 mg tablet 1 tab PO BEDTIME 01/24/23 01/24/23 sevelamer carbonate 800 mg tablet 1 tab PO TID 01/24/23 01/24/23 sodium bicarbonate 325 mg tablet 325 mg PO TID 01/24/23 01/24/23 venlafaxine 150 mg tablet,extended 1 tab PO DAILY 01/24/23 01/24/23 release 24 hr Previous Rx's Medication Instructions Recorded compr.stocking,knee,long,small #2 ea 08/20/21 (T.E.D. Knee [id number] [place]) lorazepam 0.5 mg tablet 0.5 mg PO BEDTIME PRN Anxiety #30 09/22/22 tabs amoxicillin 500 mg-potassium 1 tab PO BID #19 tabs 01/16/23 clavulanate 125 mg tablet (Augmentin) Allergies Allergy/AdvReac Type Severity Reaction Status Date / Time No Known Allergies Allergy Verified 08/16/21 15:17 Review of Systems Review of Systems: Constitutional: No Fever, No Fatigue, No Malaise Respiratory: No Cough, No Sputum, + Wheezing, No Dyspnea Gastrointestinal: No Nausea, No Vomiting, No Diarrhea, No Abdominal pain Genitourinary: No Dysuria, No Urinary Incontinence/retention Musculoskeletal: + joint pain, No Myalgias, No Joint Swelling Skin: No Skin Lesions, No rash Neuro: + Weakness, No Loss of Consciousness, + Dizziness ROS limited secondary to patient's acute mental status Yes all other systems are reviewed and are negative Constitutional: Constitutional: Reports as per [facility] Past Medical History Attestation statement: The following information was validated with the patient. Medical History Acute hyperkalemia Bacteremia COPD (chronic obstructive pulmonary disease) High cholesterol HTN (hypertension) Kidney disease Weakness Social History Social History Household Members: None Housing: Apartment Do you presently have visiting nurse or other home services: Yes Alcohol intake: unknown Patient Tobacco Use Status: Never used Tobacco Advance Directives: No Advance Directives Information Provided: Yes service: No Current occupational status: retired Physical Exam ED Vital Signs: Vital Signs - 24 hr 01/24/23 11:34 01/24/23 11:42 01/24/23 13:41 Temperature 99.6 F Pulse Rate 72 81 84 Respiratory Rate 16 18 18 Blood Pressure 143/49 H Pulse Oximetry 96 Oxygen Delivery Method Room Air BMI result Body Mass Index 36.6 Const General: cooperative and no acute distress Orientation/consciousness: oriented to person and oriented to place [facility] Head: Yes normal to inspection and Yes atraumatic Ears: hearing grossly normal bilaterally General nose exam: Normal external nose present Face and sinus: Yes normal facial exam Mouth: mucous membranes dry Eyes General: appearance normal, both eyes and all related structures Pupils: Equal, round and reactive pupils present EOM: EOMs intact bilaterally Neck Other: no midline cervical spinal tenderness Neck: Yes normal visual inspection and Yes no meningeal signs Resp Effort & Inspection: normal respiratory effort and no respiratory distress Auscultation: wheezes expiratory wheezes and throughout and diminished lung sounds diffuse Cardio Rate: regular rate Heart sounds: S1 normal heart sound present and S2 normal heart sound present GI Inspection: Yes normal to inspection Palpation (GI): Soft to palpation, nontender, no guarding and not rigid General: Yes no CVA tenderness Back/Spine/Pelvis Other: No midline thoracic/lumbar spinous tenderness/step-off or deformity Back: no CVA tenderness Skin Rashes: no rashes Wounds: no wounds Neuro General: oriented to person, oriented to place, tone normal, moves all extremities, no meningeal signs, no focal motor deficits and CN's II-XI intact bilaterally Cranial nerves: Yes Equal, round and reactive pupils present Extrem General: Yes normal to inspection and Yes no pedal edema Course Course Course Narrative: -1132-- No leukocytosis. H&H stable. Lactic acid negative. Ammonia elevated to 71. Troponin acute on chronically elevated to 26.9 > will obtain 3 hour repeat - BNP cute on chronically elevated at 525 CT head/brain wo IV con IMPRESSION: No CT evidence of intracranial space-occupying mass, bleed or infarct. Hyperostosis frontalis. No skull fracture. ? CT cervical spine wo IV con IMPRESSION: *? No CT evidence of cervical spine fracture. *? Loss of disc height and developed osteophyte from the edges of endplates at multiple levels suggest underlying degenerative disc disease. *? Developed osteophyte from the endplates cause bilateral foraminal narrowing at C5-C6 left more than right, cannot rule out left foraminal stenosis. If patient has neurological symptoms may consider correlation with follow-up MRI. *? Facet joints arthropathy at C4-C5, C5-C6 and C6-C7. XR chest 1V IMPRESSION: No radiographic evidence of acute cardiopulmonary disease. -1320-- patient's labs have now been hemolyzed twice, pending redraw -1506-- labs finally resulted. Chronic CKD with a BUN of 27 and creatinine of 4.92. no need for emergent dialysis at this time. Will consult Nephrology to make aware of patient's admission - Chronic transaminitis. Troponin without 50% rise, mi unlikely. > On re-evaluation patient is still complaining of SOB, diffuse expiatory wheeze noted. Will give Solu-Medrol, magnesium, and plan for admission. Medications Administered Discontinued Medications Generic Name Dose Route Start Last Admin Trade Name Genny PRN Reason Stop Dose Admin Albuterol Sulfate 5 mg/ 0 mg 01/24/23 11:35 01/24/23 11:41 Ipratropium [place] 0.5 mg INHALE 01/24/23 11:36 1 each ONCE ONE Administration Albuterol Sulfate 2.5 mg/ 0 mg 01/24/23 13:20 01/24/23 13:40 Ipratropium [place] 0.5 mg INHALE 01/24/23 13:21 1 each ONCE ONE Administration Medical Decision Making Medical Decision Making MDM Narrative: 87-year-old female with a past medical history of COPD, HLD, HTN, CKD on HD (Thu//Thu), presenting to ED via EMS s/p fall this morning around 5:00AM, patient reports feeling dizzy prior to fall, denies head trauma or LOC. Reports generalized fatigue / weakness, SOB, and neck pain. On exam vital signs stable, A&Ox2, appears short of breath with audible wheeze diminished lung sounds throughout with expiratory wheeze. no pedal edema, abdomen soft/ nontender, no focal deficits Concern for metabolic/infectious etiologies vs COPD exacerbation vs rhabdo. R/o ICH for ACS. Lower suspicion for PE/dissection. Low suspicion for intra-a bdominal / intrathoracic bleeding / injury at this time plan: EKG, labs, lactic/blood cultures, UA, CXR, head/ C-spine CT, anticipated admission Please refer to course for remaining clinical decision making, interpretation of labs/imaging results, and discussions with consultants and/or family members. Differential Diagnosis Differential Diagnoses: The differential diagnosis associated with the presentation includes as above Admission/Observation Consideration of admission/observation: Escalation of care including admission/observation considered Lab Data MDM Lab Attestation statement: I reviewed the patient's lab results. 01/24/23 09:42 01/24/23 09:42 Labs: Lab Results 01/24/23 01/24/23 01/24/23 Range/Units 09:42 09:42 09:42 WBC 6.7 (4.8-10.8) X10*3/uL RBC 3.87 L (4.20-5.50) X10*6/uL Hgb 11.5 L (12.0-16.0) g/dl Hct 37.2 (37.0-47.0) % MCV 96.1 (80.0-98.0) fL MCH 29.7 (27.0-33.0) pg MCHC 30.9 L (31.0-35.0) g/dl RDW 16.3 H (11.0-16.0) % Plt Count 180 (160-400) X10*3/uL MPV 9.5 (9.4-12.3) fL Immature Gran % (Auto) 0.4 (0.0-0.4) % Neut % (Auto) 71.5 (45-73) % Lymph % (Auto) 11.3 L (20-40) % [place] % (Auto) 15.5 H (2-11) % Eos % (Auto) 1.0 (0-4) % Baso % (Auto) 0.3 (0-2) % Lymph # (Auto) 0.8 L (1.2-4.9) X10*3/uL [place] # (Auto) 1.0 (0.1-1.2) X10*3/uL Eos # (Auto) 0.1 (0.0-0.4) X10*3/uL Baso # (Auto) 0.0 (0.0-0.2) X10*3/uL Abs Immat Gran (auto) 0.03 (0.00-0.03) X10*3/uL Absolute Neuts (auto) 4.8 (2.0-8.3) x10*3/uL Absolute Nucleated RBC 0.000 (0.0-0.012) X10*3/uL Nucleated RBC % (auto) 0.0 (0.0-0.2) /100WBC PT 11.0 (10.0-13.1) SEC INR 1.0 (0.9-1.1) Sodium (135-145) mmol/L Potassium (3.3-5.1) mmol/L Chloride (96-108) mmol/L Carbon Dioxide (22-29) mmol/L Anion Gap (12-20) BUN (9-16) mg/dL Creatinine (0.5-1.4) mg/dL Estim Creat Clear Calc Estimated GFR Random Glucose (60-115) mg/dL Lactic Acid (0.5-2.0) mmol/L Calcium (8.4-10.2) mg/dL Magnesium (1.6-2.6) mg/dL Total Bilirubin (0.0-1.0) mg/dL Direct Bilirubin (0.0-0.5) mg/dL AST (5-31) U/L ALT (0-31) U/L Alkaline Phosphatase (39-117) U/L Ammonia (13-55) umol/L Total Creatine Kinase (26-140) U/L Troponin I High Sens 26.9 H (<3.5-17.0) ng/L B-Natriuretic Peptide (<100) pg/mL Total Protein (6.5-8.0) g/dL Albumin (3.5-5.0) g/dL Influenza Type A (PCR) (Negative) Influenza Type B (PCR) (Negative) RSV RNA Qual (PCR) (Negative) SARS-CoV-2 RNA (RT-PCR) (Negative) 01/24/23 01/24/23 01/24/23 Range/Units 09:42 09:42 09:42 WBC (4.8-10.8) X10*3/uL RBC (4.20-5.50) X10*6/uL Hgb (12.0-16.0) g/dl Hct (37.0-47.0) % MCV (80.0-98.0) fL MCH (27.0-33.0) pg MCHC (31.0-35.0) g/dl RDW (11.0-16.0) % Plt Count (160-400) X10*3/uL MPV (9.4-12.3) fL Immature Gran % (Auto) (0.0-0.4) % Neut % (Auto) (45-73) % Lymph % (Auto) (20-40) % [place] % (Auto) (2-11) % Eos % (Auto) (0-4) % Baso % (Auto) (0-2) % Lymph # (Auto) (1.2-4.9) X10*3/uL [place] # (Auto) (0.1-1.2) X10*3/uL Eos # (Auto) (0.0-0.4) X10*3/uL Baso # (Auto) (0.0-0.2) X10*3/uL Abs Immat Gran (auto) (0.00-0.03) X10*3/uL Absolute Neuts (auto) (2.0-8.3) x10*3/uL Absolute Nucleated RBC (0.0-0.012) X10*3/uL Nucleated RBC % (auto) (0.0-0.2) /100WBC PT (10.0-13.1) SEC INR (0.9-1.1) Sodium (135-145) mmol/L Potassium (3.3-5.1) mmol/L Chloride (96-108) mmol/L Carbon Dioxide (22-29) mmol/L Anion Gap (12-20) BUN (9-16) mg/dL Creatinine (0.5-1.4) mg/dL Estim Creat Clear Calc Estimated GFR Random Glucose (60-115) mg/dL Lactic Acid 1.6 (0.5-2.0) mmol/L Calcium (8.4-10.2) mg/dL Magnesium (1.6-2.6) mg/dL Total Bilirubin (0.0-1.0) mg/dL Direct Bilirubin (0.0-0.5) mg/dL AST (5-31) U/L ALT (0-31) U/L Alkaline Phosphatase (39-117) U/L Ammonia (13-55) umol/L Total Creatine Kinase (26-140) U/L Troponin I High Sens (<3.5-17.0) ng/L B-Natriuretic Peptide 525 H (<100) pg/mL Total Protein (6.5-8.0) g/dL Albumin (3.5-5.0) g/dL Influenza Type A (PCR) NEGATIVE (Negative) Influenza Type B (PCR) NEGATIVE (Negative) RSV RNA Qual (PCR) NEGATIVE (Negative) SARS-CoV-2 RNA (RT-PCR) NEGATIVE (Negative) 01/24/23 01/24/23 01/24/23 Range/Units 10:31 13:34 13:34 WBC (4.8-10.8) X10*3/uL RBC (4.20-5.50) X10*6/uL Hgb (12.0-16.0) g/dl Hct (37.0-47.0) % MCV (80.0-98.0) fL MCH (27.0-33.0) pg MCHC (31.0-35.0) g/dl RDW (11.0-16.0) % Plt Count (160-400) X10*3/uL MPV (9.4-12.3) fL Immature Gran % (Auto) (0.0-0.4) % Neut % (Auto) (45-73) % Lymph % (Auto) (20-40) % [place] % (Auto) (2-11) % Eos % (Auto) (0-4) % Baso % (Auto) (0-2) % Lymph # (Auto) (1.2-4.9) X10*3/uL [place] # (Auto) (0.1-1.2) X10*3/uL Eos # (Auto) (0.0-0.4) X10*3/uL Baso # (Auto) (0.0-0.2) X10*3/uL Abs Immat Gran (auto) (0.00-0.03) X10*3/uL Absolute Neuts (auto) (2.0-8.3) x10*3/uL Absolute Nucleated RBC (0.0-0.012) X10*3/uL Nucleated RBC % (auto) (0.0-0.2) /100WBC PT (10.0-13.1) SEC INR (0.9-1.1) Sodium 141 (135-145) mmol/L Potassium 4.1 D (3.3-5.1) mmol/L Chloride 104 (96-108) mmol/L Carbon Dioxide 25 (22-29) mmol/L Anion Gap 16 (12-20) BUN 27 H (9-16) mg/dL Creatinine 4.92 H* (0.5-1.4) mg/dL Estim Creat Clear Calc 8.8 Estimated GFR 8 Random Glucose 93 (60-115) mg/dL Lactic Acid (0.5-2.0) mmol/L Calcium 9.2 (8.4-10.2) mg/dL Magnesium 1.8 (1.6-2.6) mg/dL Total Bilirubin 0.5 (0.0-1.0) mg/dL Direct Bilirubin 0.2 (0.0-0.5) mg/dL AST 36 H (5-31) U/L ALT 96 H (0-31) U/L Alkaline Phosphatase 140 H (39-117) U/L Ammonia 71 H (13-55) umol/L Total Creatine Kinase 130 (26-140) U/L Troponin I High Sens 29.1 H (<3.5-17.0) ng/L B-Natriuretic Peptide (<100) pg/mL Total Protein 5.8 L (6.5-8.0) g/dL Albumin 3.3 L (3.5-5.0) g/dL Influenza Type A (PCR) (Negative) Influenza Type B (PCR) (Negative) RSV RNA Qual (PCR) (Negative) SARS-CoV-2 RNA (RT-PCR) (Negative) Independent Interpretation I performed an independent interpretation of an: EKG Interpretation: EKG my interpretation normal sinus rhythm at a rate of 72. [place] interval 208. Artifact present. No STEMI. Radiology Impression Discussion of test interpretation with radiology: I have reviewed the radiologist's reading. External Record Review External record reviewed: Office record, Outpatient record, Prior outpatient labs and Prior outpatient radiology Chronic Conditions Patient?s care impacted by: Other Critical Care Time Critical Care Time Critical Care Time: Yes Total Critical Care Time: 45 Attestation: I have personally provided critical care time exclusive of time spent on separately billable procedures. Time includes review of lab data, radiology results, discussion with consultants, and monitoring for potential decompensation. Intervention performed as documented. Discharge Plan Discharge Clinical Impression: COPD with acute exacerbation, Chronic kidney disease (CKD), Encephalopathy Patient Disposition: Admitted As Inpatient
[2023-01-24 09:54] LABS: MANUAL DIFF FLAG NO
[2023-01-24 09:58] LABS: Basophils Percent Auto 0.3 % (0-2); Eosinophils Absolute Auto 0.1 X10*3/uL (0.0-0.4); Hematocrit 37.2 % (37.0-47.0); Hemoglobin 11.5 g/dl (12.0-16.0); Imm Gran Abs Auto 0.03 X10*3/uL (0.00-0.03); Imm Gran Pct Auto 0.4 % (0.0-0.4); Lymphocytes Absolute Auto 0.8 X10*3/uL (1.2-4.9); Lymphocytes Percent Auto 11.3 % (20-40); Mean Corpuscular HGB Conc 30.9 g/dl (31.0-35.0); Mean Corpuscular Hemoglobin 29.7 pg (27.0-33.0); Mean Corpuscular Volume 96.1 fL (80.0-98.0); Mean Platelet Volume 9.5 fL (9.4-12.3); Monocytes Percent Auto 15.5 % (2-11); Neutrophils Absolute Auto 4.8 x10*3/uL (2.0-8.3); Neutrophils Percent Auto 71.5 % (45-73); Platelet Count 180 X10*3/uL (160-400); Red Blood Count 3.87 X10*6/uL (4.20-5.50); Red Cell Distribution Width 16.3 % (11.0-16.0); White Blood Count 6.7 X10*3/uL (4.8-10.8)
[2023-01-24 10:13] LABS: Lactic Acid 1.6 mmol/L (0.5-2.0)
[2023-01-24 10:24] LABS: Troponin-I High Sensitivity 26.9 ng/L (<3.5-17.0)
[2023-01-24 10:42] LABS: Influenza A PCR NEGATIVE (Negative); Influenza B PCR NEGATIVE (Negative); Resp Syncy Virus RNA Qual PCR NEGATIVE (Negative); SARS COV2 PCR INHOUSE NEGATIVE (Negative)
--- NOTE | 2023-01-24 10:56 | MHC.EDTECH ---
Labs collected and sent
[2023-01-24 11:05] LABS: Ammonia 71 umol/L (13-55)
[2023-01-24 11:23] LABS: B Type Natriuretic Peptide 525 pg/mL (<100)
[2023-01-24 14:06] LABS: Troponin-I High Sensitivity 29.1 ng/L (<3.5-17.0)
--- NOTE | 2023-01-24 14:11 | PHA.MEDREC ---
Pharmacy Consult ? Medication Reconciliation Pharmacy has completed the medication reconciliation. Patient doesn't know all their meds. Called pharmacy to confirm and states that patient has been discontinued off of hydralazine 50mg per MD. Patient reports having roughly 3 pills left of augmentin and were taking it at home.
[2023-01-24 14:57] LABS: Anion Gap 16 (12-20)
[2023-01-24 15:05] LABS: Alanine Aminotransferase 96 U/L (0-31); Albumin Level 3.3 g/dL (3.5-5.0); Alkaline Phosphatase 140 U/L (39-117); Aspartate Amino Transferase 36 U/L (5-31); Bilirubin Direct 0.2 mg/dL (0.0-0.5); Bilirubin Total 0.5 mg/dL (0.0-1.0); Blood Urea Nitrogen 27 mg/dL (9-16); Calcium 9.2 mg/dL (8.4-10.2); Carbon Dioxide 25 mmol/L (22-29); Chloride 104 mmol/L (96-108); Creatinine Clr Calc Pharmacy 8.8; Estimated Glomerular Filt Rate 8; Glucose Random 93 mg/dL (60-115); Magnesium 1.8 mg/dL (1.6-2.6); Potassium 4.1 mmol/L (3.3-5.1); Sodium 141 mmol/L (135-145); Total Protein 5.8 g/dL (6.5-8.0)
--- NOTE | 2023-01-24 15:22 | P.HPHOSP_ITS ---
History of Present Illness Date of Service: 01/24/23 <RAMON Hahn - Last Filed: 01/24/23 17:23> Attending physician on admission: Bettie Davenport <RAMON Hahn - Last Filed: 01/24/23 17:23> Chief Complaint: SOB, fatigue <RAMON Hahn - Last Filed: 01/24/23 17:23> Pt is a 87-year-old female with a PMH significant for?COPD, HLD, HTN, ESRD on HD (Thu//Thu) who presents to the ED via EMS after falling at home. Pt li ves alone and ambulates with a walker. Pt states she woke this morning at 5:00 and went to the kitchen to retrieve her phone. On the way pt felt dizzy and her legs gave out. She was using her walker but fell on the floor. Denies headstrike, LOC. Pt too weak to stand up, and had to crawl on the floor over the next couple of hours to get to her phone in the kitchen. She notes she has had increased lightheadedness and dizziness over the past few days. Increased SOB since last night, worse this morning. Pt used her inhaler yesterday and it helped some. Has had some cough x 3 days, mildly productive of whitish sputum today. Pt denies chest pain/pressure, palpitations. No headache, vision changes. Denies back pain. Of note, pt was seen last week in ED on 01/16/2023 for abdominal pain and diarrhea and diagnosed with diverticulitis, started on Augmentin x10 days. In the ED pt was afebrile and satting at 96% on room air. Labs were significant for or WBC WNL, H&H of 11.5/37.2, creatinine of 4.92, mild transaminitis, troponin elevated at 26.9 with repeat 28/12, BNP 525, ammonia 71. Patient tested negative for influenza A and B, RSV, COVID. CXR showed no evidence of acute cardiopulmonary disease. CT?of head and cervical spine showed no evidence of intracranial space-occupying mass, bleed, or infarct, no skull fracture, and no CT evidence of cervical spine fracture. EKG demonstrated normal sinus rhythm. Pt was treated with Duonebs, Solu-Medrol, and magnesium sulfate. Pt will be admitte d to the hospital under observation for treatment of COPD exacerbation. <ARMON Hahn - Last Filed: 01/24/23 17:23> Review of Systems Review of Systems: Fall without head strike or loss of consciousness Lightheadedness, dizziness Generalized weakness Increased SOB and cough x2 days Denies chest pain/pressure, palpitations <RAMON Hahn - Last Filed: 01/24/23 17:23> Yes all other systems are reviewed and are negative <RAMON Hahn - Last Filed: 01/24/23 17:23> [facility] Medical History: Medical History Acute hyperkalemia Bacteremia COPD (chronic obstructive pulmonary disease) High cholesterol HTN (hypertension) Kidney disease Weakness <RAMON Hahn - Last Filed: 01/24/23 17:23> Social History: Social History Household Members: None Housing: Apartment Do you presently have visiting nurse or other home services: Yes Alcohol intake: unknown Patient Tobacco Use Status: Never used Tobacco Use of substances other than those prescribed or required for medical reasons: No Currently Displaying Signs/Symptoms of Drug Intoxication Withdrawal: No Have you been hit, kicked, punched, or otherwise hurt by someone within the past year? If so, by whom?: No Do you feel safe in your current relationship?: No Current Relationship Is there a partner from a previous relationship who is making you feel unsafe now?: No Are you made to feel afraid or neglected: No Advance Directives: No Advance Directives Information Provided: Yes Do you have thoughts of harming others: None Do you have a plan to hurt others: No Plan Recently lost weight without trying: No Eating poorly because of decreased appetite: No Nutrition Risks: No Nutritional Risk Patient : No : No service: No Current occupational status: retired <RAMON Hahn - Last Filed: 01/24/23 17:23> Meds Allergies/Adverse reactions: Allergies Allergy/AdvReac Type Severity Reaction Status Date / Time No Known Allergies Allergy Verified 08/16/21 15:17 <RAMON Hahn - Last Filed: 01/24/23 17:23> Active Medications: Current Medications Magnesium Sulfate (Magnesium Sulfate/H2o) 2 gm in 50 mls @ 25 mls/hr IV ONCE ONE Stop: 01/24/23 17:07 <RAMON Hahn - Last Filed: 01/24/23 17:23> Home medications: Home Medications Medication Instructions Recorded Confirmed Last Taken Type carvedilol 25 mg tablet 1 tab PO BID 08/16/21 01/24/23 01/23/23 History gabapentin 100 mg capsule 1 cap PO BEDTIME 08/16/21 01/24/23 01/23/23 History aspirin 81 mg tablet,delayed 81 mg PO DAILY 01/24/23 01/24/23 Unknown History release bupropion HCl 150 mg 24 hr tablet, 1 tab PO DAILY 01/24/23 01/24/23 01/23/23 History extended release fexofenadine 180 mg tablet 180 mg PO DAILY PRN Allergy 01/24/23 01/24/23 Unknown History (Anastasiia Allergy) Symptoms lidocaine 5 % topical patch 1 patch topical DAILY 01/24/23 01/24/23 Unknown History lidocaine-prilocaine 2.5 %-2.5 % See Rx Instructions .Route .COMPLEX 01/24/23 01/24/23 01/22/23 History topical cream propranolol 60 mg tablet 1 tab PO BID 01/24/23 01/24/23 01/23/23 History rosuvastatin 20 mg tablet 1 tab PO BEDTIME 01/24/23 01/24/23 01/23/23 History sevelamer carbonate 800 mg tablet 1 tab PO TID 01/24/23 01/24/23 01/23/23 History sodium bicarbonate 325 mg tablet 325 mg PO TID 01/24/23 01/24/23 Unknown History venlafaxine 150 mg tablet,extended 1 tab PO DAILY 01/24/23 01/24/23 01/23/23 History release 24 hr <RAMON Hahn - Last Filed: 01/24/23 17:23> Physical Exam Vital Signs and Narrative: Vital Signs: Last Vital Signs Temp 99.6 F 01/24/23 11:34 Pulse 84 01/24/23 13:41 Resp 18 01/24/23 13:41 BP 143/49 H 01/24/23 11:34 Pulse Ox 96 01/24/23 11:34 O2 Del Method 01/24/23 11:34 BMI result Body Mass Index 36.6 <RAMON Hahn - Last Filed: 01/24/23 17:23> Constitutional: Alert, in no acute distress. Mental Status: Oriented to person, place and time. Eyes: Pupils are equal, round, and reactive to light. Ear, Nose, and Throat: Oropharynx clear, mucous membranes moist. Ears and nose without deformities. Trachea midline. Respiratory: Diffuse wheezing bilaterally. Cardiovascular: S1, S2 regular. No murmurs, rubs, or gallops. Gastrointestinal: Abdomen soft, non-tender, non-distended. Normal bowel sounds. Neurologic: Cranial nerves II-XII are grossly intact. No focal neurological deficits. Moves all extremities spontaneously. Skin: No rashes or lesions noted. Musculoskeletal: No cyanosis or clubbing. Extremities: No edema. Psychiatric: Normal mood and affect. <RAMON Hahn - Last Filed: 01/24/23 17:23> Results Labs CBC and Chem 7: 01/24/23 09:42 01/24/23 13:34 <RAMON Hahn - Last Filed: 01/24/23 17:23> Labs: Laboratory Results - last 24 hr 01/24/23 01/24/23 01/24/23 09:42 09:42 09:42 MCV 96.1 MCH 29.7 MCHC 30.9 L RDW 16.3 H Plt Count 180 MPV 9.5 Immature Gran % (Auto) 0.4 Neut % (Auto) 71.5 Lymph % (Auto) 11.3 L [place] % (Auto) 15.5 H Eos % (Auto) 1.0 Baso % (Auto) 0.3 Lymph # (Auto) 0.8 L [place] # (Auto) 1.0 Eos # (Auto) 0.1 Baso # (Auto) 0.0 Abs Immat Gran (auto) 0.03 Absolute Neuts (auto) 4.8 Absolute Nucleated RBC 0.000 Nucleated RBC % (auto) 0.0 PT 11.0 INR 1.0 Anion Gap Estim Creat Clear Calc Estimated GFR Random Glucose Lactic Acid Calcium Magnesium Total Bilirubin Direct Bilirubin AST ALT Alkaline Phosphatase Ammonia Total Creatine Kinase Troponin I High Sens 26.9 H B-Natriuretic Peptide Total Protein Albumin Influenza Type A (PCR) Influenza Type B (PCR) RSV RNA Qual (PCR) SARS-CoV-2 RNA (RT-PCR) 01/24/23 01/24/23 01/24/23 09:42 09:42 09:42 MCV MCH MCHC RDW Plt Count MPV Immature Gran % (Auto) Neut % (Auto) Lymph % (Auto) [place] % (Auto) Eos % (Auto) Baso % (Auto) Lymph # (Auto) [place] # (Auto) Eos # (Auto) Baso # (Auto) Abs Immat Gran (auto) Absolute Neuts (auto) Absolute Nucleated RBC Nucleated RBC % (auto) PT INR Anion Gap Estim Creat Clear Calc Estimated GFR Random Glucose Lactic Acid 1.6 Calcium Magnesium Total Bilirubin Direct Bilirubin AST ALT Alkaline Phosphatase Ammonia Total Creatine Kinase Troponin I High Sens B-Natriuretic Peptide 525 H Total Protein Albumin Influenza Type A (PCR) NEGATIVE Influenza Type B (PCR) NEGATIVE RSV RNA Qual (PCR) NEGATIVE SARS-CoV-2 RNA (RT-PCR) NEGATIVE 01/24/23 01/24/23 01/24/23 10:31 13:34 13:34 MCV MCH MCHC RDW Plt Count MPV Immature Gran % (Auto) Neut % (Auto) Lymph % (Auto) [place] % (Auto) Eos % (Auto) Baso % (Auto) Lymph # (Auto) [place] # (Auto) Eos # (Auto) Baso # (Auto) Abs Immat Gran (auto) Absolute Neuts (auto) Absolute Nucleated RBC Nucleated RBC % (auto) PT INR Anion Gap 16 Estim Creat Clear Calc 8.8 Estimated GFR 8 Random Glucose 93 Lactic Acid Calcium 9.2 Magnesium 1.8 Total Bilirubin 0.5 Direct Bilirubin 0.2 AST 36 H ALT 96 H Alkaline Phosphatase 140 H Ammonia 71 H Total Creatine Kinase 130 Troponin I High Sens 29.1 H B-Natriuretic Peptide Total Protein 5.8 L Albumin 3.3 L Influenza Type A (PCR) Influenza Type B (PCR) RSV RNA Qual (PCR) SARS-CoV-2 RNA (RT-PCR) <RAMON Hahn - Last Filed: 01/24/23 17:23> Imaging Radiologist's Impressions: Impressions Chest X-Ray 01/24/23 09:20 IMPRESSION: No radiographic evidence of acute cardiopulmonary disease. Cervical Spine CT 01/24/23 09:28 IMPRESSION: * No CT evidence of cervical spine fracture. * Loss of disc height and developed osteophyte from the edges of endplates at multiple levels suggest underlying degenerative disc disease. * Developed osteophyte from the endplates cause bilateral foraminal narrowing at C5-C6 left more than right, cannot rule out left foraminal stenosis. If patient has neurological symptoms may consider correlation with follow-up MRI. * Facet joints arthropathy at C4-C5, C5-C6 and C6-C7. Head CT 01/24/23 09:28 IMPRESSION: No CT evidence of intracranial space-occupying mass, bleed or infarct. Hyperostosis frontalis. No skull fracture. <RAMON Hahn - Last Filed: 01/24/23 17:23> Assessment and Plan (1) COPD with acute exacerbation: Status: Acute <RAMON Hahn Last Filed: 01/24/23 17:23> (2) Dizziness: Status: Acute <RAMON Hahn - Last Filed: 01/24/23 17:23> (3) ESRD (end stage renal disease) on dialysis: Status: Acute <RAMON Hahn - Last Filed: 01/24/23 17:23> Pt is a 87-year-old female with a PMH significant for?COPD, HLD, HTN, ESRD on HD (Thu//Thu) who presents to the ED via EMS after falling at home. Pt will be admitted to the hospital under observation for treatment of COPD exacerbation. Acute COPD exacerbation Pt not hypoxic Received Solu-Medrol in the ED DuoNebs q4 while awake Prednisone 40mg p.o. ESRD on HD //Thu Patient's creatinine 4.92 Nephrology consult Dialysis today or tomorrow Diverticulitis Patient was seen in ED on 01/16/2023 and diagnosed with diverticulitis, started on Augmentin x10 days Continue Augmentin Elevated ammonia Pt's ammonia elevated at 71 Pt appears alert and oriented x3, not encephalopathic Monitor mentation Mood disorder Continue bupropion, venlafaxine HTN Coninue home meds HLD Continue statin Full Code Attending:?Dr. Davenport DVT Prophylaxis: Heparin Pt will be admitted to the hospital under observation for treatment of COPD exacerbation. <RAMON Hahn Last Filed: 01/24/23 17:23> Pt is a 87-year-old female with a PMH significant for?COPD, HLD, HTN, ESRD on HD (Thu//Thu) who presents to the ED via EMS after falling at home. Pt will be admitted to the hospital under observation for treatment of COPD exacerbation. Acute COPD exacerbation Pt not hypoxic Received Solu-Medrol in the ED DuoNebs q4 while awake Prednisone 40mg p.o. ESRD on HD //Thu Patient's creatinine 4.92 Nephrology consult Dialysis today or tomorrow Fall patient fell and was unable to stand up again get PT eval Diverticulitis Patient was seen in ED on 01/16/2023 and diagnosed with diverticulitis, started on Augmentin x10 days Continue Augmentin Elevated ammonia Pt's ammonia elevated at 71 Pt appears alert and oriented x3, not encephalopathic Monitor mentation Mood disorder Continue bupropion, venlafaxine HTN Coninue home meds HLD Continue statin Full Code Attending:?Dr. Davenport DVT Prophylaxis: Heparin Pt will be admitted to the hospital under observation for treatment of COPD exacerbation. <Bettie Davenport MD - Last Filed: 01/25/23 10:50> Time Spent With Patient Time: Total time managing care of this patient today ____ minutes. <RAMON Hahn - Last Filed: 01/24/23 17:23> Quality Stroke Does the patient have a stroke diagnosis?: No <RAMON Hahn - Last Filed: 01/24/23 17:23> VTE Prior VTE?: No <RAMON Hahn - Last Filed: 01/24/23 17:23> VTE Risk Level:: Medical - moderate - high <RAMON Hahn - Last Filed: 01/24/23 17:23> VTE Device Contraindication: Treatment Not Indicated <RAMON Hahn - Last Filed: 01/24/23 17:23> VTE Drug Contraindication: N/A - Med Ordered <RAMON Hahn - Last Filed: 01/24/23 17:23>
[2023-01-24] MEDS: methylPREDNISolone Sod Succ 125 MG/2 ML VIAL 60 MG IVPUSH (15:39)
[2023-01-24] MEDS: Magnesium Sulfate/H2O 2 GM/50 ML PIGGYBACK IV (15:39)
--- NOTE | 2023-01-24 15:40 | PM.EVENT ---
Event Note Date of Service: 01/25/23 Event Note: the patient was seen and evaluated with RAMON Hahn. I agree with his note, assessment and plan with the following. An 87 years old lady with history of ESRD on HD, COPD, HTN, HLD who presents to the hospital complaining of worsening shortness of breath and increased confusion. Found to be in COPD exacerbation. COPD exacerbation steroids, nebulizers, O2 as needed ESRD needs HD nephrology consult Rest of evaluations by PA note. Time Spent With Patient Time: Total time managing care of this patient today ____ minutes.
--- NOTE | 2023-01-24 16:00 | MHC.EDTECH ---
this pct assumed care of pt at 1500 ,1600 rounding done ,vitals sign taken ,pt was reposition and extra linen removed ,this pct transport pt for dialysis .
[2023-01-24 16:51] LABS: Lipase 10 U/L (8-78)
--- NOTE | 2023-01-24 19:53 | PC.NURSE ---
report received from KATERINA Martinez Pt off unit in dialysis at this time, awaiting for return. Per previous nurse, pt left for dialysis at approximately 1620
--- NOTE | 2023-01-24 20:00 | PC.NURSE ---
Attempted to call report to floor, no answer. [place]-texted RN, no answer. Will re-attempt shortly
[2023-01-24] MEDS: Atorvastatin Calcium 80 MG TABLET PO (22:01)
[2023-01-24] MEDS: Sodium Bicarbonate 650 MG TABLET 325 MG PO (22:01)
[2023-01-24] MEDS: Propranolol HCL 20 MG TABLET 60 MG PO (22:01)
[2023-01-24] MEDS: carvediloL 25 MG TABLET PO (22:01)
[2023-01-24] MEDS: 0.9 % Sodium Chloride Flush 3 ML SYRINGE IVFLUSH (22:02)
[2023-01-24] MEDS: Sevelamer Carbonate Tablet 800 MG TABLET PO (22:11)
[2023-01-24] MEDS: LORazepam 0.5 MG TABLET PO (22:50)
[2023-01-24] MEDS: Acetaminophen 325 MG TABLET 650 MG PO (22:50)
[2023-01-25] VITALS (8 sets, daily range): BP systolic 117–153; BP diastolic 48–66; PULSE 59–111; RESP 16–18; TEMP 36.4–37.1; O2SAT 93–98
[2023-01-25] MEDS: Heparin Sodium,Porcine 5,000 UNIT/ML VIAL 5000 UNIT SUBCUT ×2 (03:57→15:21)
[2023-01-25 06:27] LABS: Hematocrit 35.8 % (37.0-47.0); Hemoglobin 11.3 g/dl (12.0-16.0); Mean Corpuscular HGB Conc 31.6 g/dl (31.0-35.0); Mean Corpuscular Hemoglobin 30.5 pg (27.0-33.0); Mean Corpuscular Volume 96.8 fL (80.0-98.0); Platelet Count 165 X10*3/uL (160-400); Red Cell Distribution Width 16.2 % (11.0-16.0); White Blood Count 7.9 X10*3/uL (4.8-10.8)
[2023-01-25 06:41] LABS: Anion Gap 16 (12-20); Blood Urea Nitrogen 24 mg/dL (9-16); Carbon Dioxide 28 mmol/L (22-29); Chloride 100 mmol/L (96-108); Creatinine Clr Calc Pharmacy 13.1; Estimated Glomerular Filt Rate 13; Glucose Random 207 mg/dL (60-115); Potassium 3.7 mmol/L (3.3-5.1); Sodium 140 mmol/L (135-145)
[2023-01-25] MEDS: buPROPion HCl XL 150 MG TAB.ER.24H PO (09:48)
[2023-01-25] MEDS: Propranolol HCL 20 MG TABLET 60 MG PO ×2 (09:48→20:46)
[2023-01-25] MEDS: predniSONE 20 MG TABLET 40 MG PO (09:48)
[2023-01-25] MEDS: carvediloL 25 MG TABLET PO ×2 (09:48→20:47)
[2023-01-25] MEDS: Venlafaxine HCl ER 150 MG CAP.ER.24H PO (09:48)
[2023-01-25] MEDS: Aspirin Enteric Coated 81 MG TABLET.DR PO (09:48)
[2023-01-25] MEDS: Sevelamer Carbonate Tablet 800 MG TABLET PO ×3 (09:48→20:47)
[2023-01-25] MEDS: Sodium Bicarbonate 650 MG TABLET 325 MG PO ×3 (09:49→20:45)
[2023-01-25] MEDS: 0.9 % Sodium Chloride Flush 3 ML SYRINGE IVFLUSH ×3 (09:49→20:48)
--- NOTE | 2023-01-25 10:50 | P.PNIM_ITS ---
Subjective Subjective Date of Service: 01/25/23 Interval History: still having cough and dyspnea feels better overall waiting nephro eval for dialysis no other overnight events Review of Systems Review of Systems: Yes all other systems are reviewed and are negative Physical Exam Vital Signs: Vital Signs: Last Vital Signs Temp 97.5 F 01/25/23 08:00 Pulse 111 H 01/25/23 08:00 Resp 18 01/25/23 08:00 BP 146/66 H 01/25/23 08:00 Pulse Ox 95 01/25/23 08:00 O2 Del Method 01/25/23 08:00 BMI result Body Mass Index 36.8 Const: Other: Constitutional : Awake, interactive, obese, not in distress Neck : Normal inspection, Supple Cardiovascular : RRR, no JVP, no lower extremity edema Respiratory : good bilateral air entry, no crackles, expiratory bilateral wheezes or rhonchi Gastrointestinal: soft, lax, Normal bowel sounds, Non tender Skin : Warm, Dry Neurological : Alert & oriented x3, No focal deficit Objective Data Active Medications Acetaminophen (Acetaminophen 325 Mg Tablet) 650 mg PO Q6H PRN PRN Reason: Pain, Mild (Pain Scale 1-3) Last Admin: 01/24/23 22:50 Dose: 650 mg Documented By: STACY Aspirin (Aspirin Enteric Coated 81 Mg Tablet.Dr) 81 mg PO DAILY [facility] Last Admin: 01/25/23 09:48 Dose: 81 mg Documented By: ADRIANNA Atorvastatin Calcium (Atorvastatin Calcium 80 Mg Tablet) 80 mg PO BEDTIME [facility] Last Admin: 01/24/23 22:01 Dose: 80 mg Documented By: STACY Benzonatate (Benzonatate 100 Mg Capsule) 100 mg PO TID [facility] Bupropion HCl (Bupropion Hcl Xl 150 Mg Tab.Er.24h) 150 mg PO DAILY [facility] Last Admin: 01/25/23 09:48 Dose: 150 mg Documented By: ADRIANNA Carvedilol (Carvedilol 25 Mg Tablet) 25 mg PO BID [facility]; Protocol Last Admin: 01/25/23 09:48 Dose: 25 mg Documented By: ADRIANNA Albuterol Sulfate 2.5 mg/ (Ipratropium [place] 0.5 mg) 0 mg INHALE RQ4H WHILE AWAKE [facility] Last Admin: 01/25/23 08:11 Dose: Not Given Documented By: ADRY Non-Admin Reason: Patient Refused Docusate Sodium (Docusate Sodium 100 Mg Capsule) 100 mg PO DAILY PRN PRN Reason: Constipation Guaifenesin (Guaifenesin La 600 Mg Tab.Er.12h) 600 mg PO BID [facility] Heparin Sodium (Porcine) (Heparin Sodium,Porcine 5,000 Unit/Ml Vial) 5,000 unit SUBCUT Q12H [facility] Last Admin: 01/25/23 03:57 Dose: 5,000 unit Documented By: STACY Lorazepam (Lorazepam 0.5 Mg Tablet) 0.5 mg PO BEDTIME PRN PRN Reason: Anxiety Last Admin: 01/24/23 22:50 Dose: 0.5 mg Documented By: STACY Ondansetron HCl (Ondansetron Hcl 4 Mg/2 Ml Vial) 4 mg IVPUSH Q8H PRN PRN Reason: Nausea and Vomiting Prednisone (Prednisone 20 Mg Tablet) 40 mg PO DAILY [facility] Last Admin: 01/25/23 09:48 Dose: 40 mg Documented By: ADRIANNA Propranolol HCl (Propranolol Hcl 20 Mg Tablet) 60 mg PO BID [facility]; Protocol Last Admin: 01/25/23 09:48 Dose: 60 mg Documented By: ADRIANNA Sevelamer Carbonate (Sevelamer Carbonate Tablet 800 Mg Tablet) 800 mg PO TID [facility] Last Admin: 01/25/23 09:48 Dose: 800 mg Documented By: ADRIANNA Sodium Bicarbonate (Sodium Bicarbonate 650 Mg Tablet) 325 mg PO TID [facility] Last Admin: 01/25/23 09:49 Dose: 325 mg Documented By: ADRIANNA Sodium Chloride (0.9 % Sodium Chloride Flush 3 Ml Syringe) 3 ml IVFLUSH QSHIFT [facility] Last Admin: 01/25/23 09:49 Dose: 3 ml Documented By: ADRIANNA Venlafaxine HCl (Venlafaxine Hcl Er 150 Mg Cap.Er.24h) 150 mg PO DAILY [facility] Last Admin: 01/25/23 09:48 Dose: 150 mg Documented By: ADRIANNA Labs 01/25/23 05:21 01/25/23 05:21 Labs: Laboratory Results - last 24 hr 01/24/23 01/24/23 01/24/23 09:42 09:42 10:31 MCV MCH MCHC RDW Plt Count MPV Absolute Nucleated RBC Nucleated RBC % (auto) Anion Gap Estim Creat Clear Calc Estimated GFR Random Glucose Calcium Magnesium Total Bilirubin Direct Bilirubin AST ALT Alkaline Phosphatase Ammonia 71 H Total Creatine Kinase Troponin I High Sens B-Natriuretic Peptide 525 H Total Protein Albumin Lipase Influenza Type A (PCR) NEGATIVE Influenza Type B (PCR) NEGATIVE RSV RNA Qual (PCR) NEGATIVE SARS-CoV-2 RNA (RT-PCR) NEGATIVE 01/24/23 01/24/23 01/25/23 13:34 13:34 05:21 MCV 96.8 MCH 30.5 MCHC 31.6 RDW 16.2 H Plt Count 165 MPV 10.0 Absolute Nucleated RBC 0.000 Nucleated RBC % (auto) 0.0 Anion Gap 16 Estim Creat Clear Calc 8.8 Estimated GFR 8 Random Glucose 93 Calcium 9.2 Magnesium 1.8 Total Bilirubin 0.5 Direct Bilirubin 0.2 AST 36 H ALT 96 H Alkaline Phosphatase 140 H Ammonia Total Creatine Kinase 130 Troponin I High Sens 29.1 H B-Natriuretic Peptide Total Protein 5.8 L Albumin 3.3 L Lipase 10 Influenza Type A (PCR) Influenza Type B (PCR) RSV RNA Qual (PCR) SARS-CoV-2 RNA (RT-PCR) 01/25/23 05:21 MCV MCH MCHC RDW Plt Count MPV Absolute Nucleated RBC Nucleated RBC % (auto) Anion Gap 16 Estim Creat Clear Calc 13.1 Estimated GFR 13 Random Glucose 207 H Calcium 9.0 Magnesium Total Bilirubin Direct Bilirubin AST ALT Alkaline Phosphatase Ammonia Total Creatine Kinase Troponin I High Sens B-Natriuretic Peptide Total Protein Albumin Lipase Influenza Type A (PCR) Influenza Type B (PCR) RSV RNA Qual (PCR) SARS-CoV-2 RNA (RT-PCR) Assessment and Plan (1) ESRD (end stage renal disease) on dialysis: Status: Acute (2) COPD with acute exacerbation: Status: Acute Plan Pt is a 87-year-old female with a PMH significant for?COPD, HLD, HTN, ESRD on HD (Thu//Thu) who presents to the ED via EMS after falling at home. Pt will be admitted to the hospital under observation for treatment of COPD exacerbation. Acute COPD exacerbation DuoNebs q4 while awake Prednisone 40mg p.o. cough medicine ESRD on HD scheduled , missed thursday sessions Nephrology consult Dialysis today or tomorrow Fall patient fell and was unable to stand up again pending PT eval Diverticulitis Patient was seen in ED on 01/16/2023 and diagnosed with diverticulitis, started on Augmentin x10 days Continue Augmentin Elevated ammonia Pt's ammonia elevated at 71 Pt appears alert and oriented x3, not encephalopathic Monitor mentation Mood disorder Continue bupropion, venlafaxine HTN Coninue home meds HLD Continue statin Full Code Attending:?Dr. Davenport DVT Prophylaxis: Heparin Patient will need overnight hospital stay pending Dialysis and resp. status improvement. Time Spent With Patient Time: Total time managing care of this patient today ____ minutes. Quality Stroke Does the patient have a stroke diagnosis?: No VTE Prior VTE?: No VTE Risk Level:: Medical - moderate - high VTE Device Contraindication: Treatment Not Indicated VTE Drug Contraindication: N/A - Med Ordered
[2023-01-25] MEDS: guaiFENesin LA 600 MG TAB.ER.12H PO ×2 (11:13→20:45)
[2023-01-25] MEDS: Acetaminophen 325 MG TABLET 650 MG PO ×2 (11:13→20:48)
[2023-01-25] MEDS: Benzonatate 100 MG CAPSULE PO ×3 (11:13→20:47)
--- NOTE | 2023-01-25 13:58 | MHC.CM.PN ---
CM MET WITH PT AND SON-IN-LAW AT BEDSIDE PT LIVES ALONE AND IS INDEPENDENT WITH CARE SHE HAS A BOILER OUT FOR SOME CLEANING AND A LIFELINE SHE USES A CANE AND WALKER SHE HAS A HCP ON FILE SHE IS COVID VAX AND HAD ALL BOOSTERS PCP: ILDEFONSO SCHWARZ IMM DELIVERED CURRENTLY, DCP IS TBD PENDING PT EVAL PT AND SON REPORT MULTIPLE FALLS
--- NOTE | 2023-01-25 15:35 | PM.CNNEP ---
History of Present Illness Reason for Consult Consult date: 01/25/23 Reason for consult: management of ESRD and dialysis needs Chief Complaint Chief complaint: constipation History of Present Illness Narrative: eren is a pleasant elderly woman with ESRD on dialysis at the [facility] unit. 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 She has very poor insight as to why she is here and is telling me about her diverticulitis and subsequent constipation. She denies sob. She is concerned about having no BM for several days. She came in yesterday through the ER with reported weakness in her legs. She had missed her dialysis and we arranged for her to have dialysis yesterday. Today she is a bit confused and is talking about going to rehab. She is quite forgetful and cannot initially tell me where she dialyzes: [place], no, it is [place]. She says she has been on dialysis two years. She also mentions converting to PD soon and that she was to have a PD catheter placed by Dr. Barreto tomorrow as an outpatient. Review of Systems Review of Systems Fall without head strike or loss of consciousness Lightheadedness, dizziness Generalized weakness constipation Denies chest pain/pressure, palpitations Yes all other systems are reviewed and are negative Constitutional: Reports as per [facility] Past Medical History Medical History Acute hyperkalemia Bacteremia COPD (chronic obstructive pulmonary disease) High cholesterol HTN (hypertension) Kidney disease Weakness Social History Social History Household Members: None Housing: Apartment Do you presently have visiting nurse or other home services: Yes Alcohol intake: unknown Patient Tobacco Use Status: Never used Tobacco Use of substances other than those prescribed or required for medical reasons: No Currently Displaying Signs/Symptoms of Drug Intoxication Withdrawal: No Have you been hit, kicked, punched, or otherwise hurt by someone within the past year? If so, by whom?: No Do you feel safe in your current relationship?: No Current Relationship Is there a partner from a previous relationship who is making you feel unsafe now?: No Are you made to feel afraid or neglected: No Advance Directives: No Advance Directives Information Provided: Yes Do you have thoughts of harming others: None Do you have a plan to hurt others: No Plan Recently lost weight without trying: No Eating poorly because of decreased appetite: No Nutrition Risks: No Nutritional Risk Patient : No : No service: No Current occupational status: retired [employer] Allergies Allergy/AdvReac Type Severity Reaction Status Date / Time No Known Allergies Allergy Verified 08/16/21 15:17 Active Medications: Current Medications Acetaminophen (Acetaminophen 325 Mg Tablet) 650 mg PO Q6H PRN PRN Reason: Pain, Mild (Pain Scale 1-3) Last Admin: 01/25/23 11:13 Dose: 650 mg Aspirin (Aspirin Enteric Coated 81 Mg Tablet.Dr) 81 mg PO DAILY [facility] Last Admin: 01/25/23 09:48 Dose: 81 mg Atorvastatin Calcium (Atorvastatin Calcium 80 Mg Tablet) 80 mg PO BEDTIME [facility] Last Admin: 01/24/23 22:01 Dose: 80 mg Benzonatate (Benzonatate 100 Mg Capsule) 100 mg PO TID [facility] Last Admin: 01/25/23 14:22 Dose: 100 mg Bupropion HCl (Bupropion Hcl Xl 150 Mg Tab.Er.24h) 150 mg PO DAILY [facility] Last Admin: 01/25/23 09:48 Dose: 150 mg Carvedilol (Carvedilol 25 Mg Tablet) 25 mg PO BID [facility]; Protocol Last Admin: 01/25/23 09:48 Dose: 25 mg Albuterol Sulfate 2.5 mg/ (Ipratropium [place] 0.5 mg) 0 mg INHALE RQ4H WHILE AWAKE [facility] Last Admin: 01/25/23 11:37 Dose: 1 each Docusate Sodium (Docusate Sodium 100 Mg Capsule) 100 mg PO DAILY PRN PRN Reason: Constipation Guaifenesin (Guaifenesin La 600 Mg Tab.Er.12h) 600 mg PO BID [facility] Last Admin: 01/25/23 11:13 Dose: 600 mg Heparin Sodium (Porcine) (Heparin Sodium,Porcine 5,000 Unit/Ml Vial) 5,000 unit SUBCUT Q12H [facility] Last Admin: 01/25/23 15:21 Dose: 5,000 unit Lorazepam (Lorazepam 0.5 Mg Tablet) 0.5 mg PO BEDTIME PRN PRN Reason: Anxiety Last Admin: 01/24/23 22:50 Dose: 0.5 mg Ondansetron HCl (Ondansetron Hcl 4 Mg/2 Ml Vial) 4 mg IVPUSH Q8H PRN PRN Reason: Nausea and Vomiting Prednisone (Prednisone 20 Mg Tablet) 40 mg PO DAILY [facility] Last Admin: 01/25/23 09:48 Dose: 40 mg Propranolol HCl (Propranolol Hcl 20 Mg Tablet) 60 mg PO BID [facility]; Protocol Last Admin: 01/25/23 09:48 Dose: 60 mg Sevelamer Carbonate (Sevelamer Carbonate Tablet 800 Mg Tablet) 800 mg PO TID [facility] Last Admin: 01/25/23 14:22 Dose: 800 mg Sodium Bicarbonate (Sodium Bicarbonate 650 Mg Tablet) 325 mg PO TID [facility] Last Admin: 01/25/23 14:22 Dose: 325 mg Sodium Chloride (0.9 % Sodium Chloride Flush 3 Ml Syringe) 3 ml IVFLUSH QSAZFT [facility] Last Admin: 01/25/23 15:21 Dose: 3 ml Venlafaxine HCl (Venlafaxine Hcl Er 150 Mg Cap.Er.24h) 150 mg PO DAILY [facility] Last Admin: 01/25/23 09:48 Dose: 150 mg Home Medications Medication Instructions Recorded Confirmed Last Taken Type carvedilol 25 mg tablet 1 tab PO BID 08/16/21 01/24/23 01/23/23 History gabapentin 100 mg capsule 1 cap PO BEDTIME 08/16/21 01/24/23 01/23/23 History aspirin 81 mg tablet,delayed 81 mg PO DAILY 01/24/23 01/24/23 Unknown History release bupropion HCl 150 mg 24 hr tablet, 1 tab PO DAILY 01/24/23 01/24/23 01/23/23 History extended release fexofenadine 180 mg tablet 180 mg PO DAILY PRN Allergy 01/24/23 01/24/23 Unknown History (Anastasiia Allergy) Symptoms lidocaine 5 % topical patch 1 patch topical DAILY 01/24/23 01/24/23 Unknown History lidocaine-prilocaine 2.5 %-2.5 % See Rx Instructions .Route .COMPLEX 01/24/23 01/24/23 01/22/23 History topical cream propranolol 60 mg tablet 1 tab PO BID 01/24/23 01/24/23 01/23/23 History rosuvastatin 20 mg tablet 1 tab PO BEDTIME 01/24/23 01/24/23 01/23/23 History sevelamer carbonate 800 mg tablet 1 tab PO TID 01/24/23 01/24/23 01/23/23 History sodium bicarbonate 325 mg tablet 325 mg PO TID 01/24/23 01/24/23 Unknown History venlafaxine 150 mg tablet,extended 1 tab PO DAILY 01/24/23 01/24/23 01/23/23 History release 24 hr Physical Exam Vital Signs: Last Vital Signs Temp 98.7 F 01/25/23 15:27 Pulse 63 01/25/23 15:27 Resp 18 01/25/23 15:27 BP 117/48 L 01/25/23 15:27 Pulse Ox 93 01/25/23 15:27 O2 Del Method 01/25/23 15:27 BMI result Body Mass Index 36.8 Const Other: Constitutional : Awake, interactive, obese, not in distress Neck : Normal inspection, Supple Cardiovascular : RRR, no JVP, no lower extremity edema Respiratory : good bilateral air entry, no crackles, expiratory bilateral wheezes or rhonchi Gastrointestinal: soft, lax, Normal bowel sounds, Non tender Skin : Warm, Dry Neurological : Alert & oriented x3, No focal deficit General: cooperative, healthy appearing and no acute distress Orientation/consciousness: oriented to person, oriented to place and patient oriented x3 Limitations: no limitations HEENT Head: Yes normal to inspection and Yes atraumatic Ears: hearing grossly normal bilaterally General nose exam: Normal external nose present Face and sinus: Yes normal facial exam Mouth: mucous membranes dry Eyes General: appearance normal, both eyes and all related structures Pupils: Equal, round and reactive pupils present EOM: EOMs intact bilaterally Neck Other: no midline cervical spinal tenderness Neck: Yes normal visual inspection and Yes no meningeal signs Resp Effort & Inspection: normal respiratory effort and no respiratory distress Auscultation: clear to auscultation bilaterally, wheezes expiratory wheezes and throughout and diminished lung sounds diffuse Cardio Rate: regular rate Heart sounds: S1 normal heart sound present and S2 normal heart sound present GI Inspection: Yes normal to inspection Palpation (GI): Soft to palpation, nontender, no guarding and not rigid General: Yes no CVA tenderness Back/Spine/Pelvis Other: No midline thoracic/lumbar spinous tenderness/step-off or deformity Back: no CVA tenderness Skin Rashes: no rashes Wounds: no wounds Neuro Other: Forgetful, giving incorrect names to dialysis unit; 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: oriented to person, oriented to place, patient oriented x3, tone normal, moves all extremities, no meningeal signs, no focal motor deficits and CN's II-XI intact bilaterally Cranial nerves: Yes Equal, round and reactive pupils present Cognition (Neuro): abnormal cognition Gait exam (Neuro): Normal gait present Extrem General: Yes normal to inspection and Yes no pedal edema Results Lab Results 01/25/23 05:21 01/25/23 05:21 Lab results: Chemistry 01/24/23 01/25/23 13:34 05:21 Sodium 141 140 Potassium 4.1 D 3.7 Carbon Dioxide 25 28 BUN 27 H 24 H Creatinine 4.92 H* 3.30 H Calcium 9.2 9.0 Hematology 01/24/23 01/25/23 09:42 05:21 WBC 6.7 7.9 Hgb 11.5 L 11.3 L Plt Count 180 165 Assessment and Plan (1) ESRD (end stage renal disease) on dialysis: Status: Acute (2) Encephalopathy: Status: Acute Plan Plan for dialysis while here T TH S She is not quite herself and this needs to be sorted out further 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 Procedures Date of Service Date of Service: 01/25/23
[2023-01-25] MEDS: Atorvastatin Calcium 80 MG TABLET PO (20:47)
[2023-01-25] MEDS: LORazepam 0.5 MG TABLET PO (20:48)
[2023-01-26] VITALS (8 sets, daily range): BP systolic 118–152; BP diastolic 57–68; PULSE 54–63; RESP 15–20; TEMP 36.1–36.9; O2SAT 92–99
[2023-01-26] MEDS: Acetaminophen 325 MG TABLET 650 MG PO (03:25)
[2023-01-26] MEDS: Heparin Sodium,Porcine 5,000 UNIT/ML VIAL 5000 UNIT SUBCUT ×2 (03:25→15:28)
--- NOTE | 2023-01-26 09:32 | MHC.CLN ---
NUTRITION PATIENT WITH ESRD AND RECEIVES HEMODIALYSIS. DIET CHANGED TO REFLECT DIALYSIS PARAMETERS: 2 GRAM SODIUM, LOW POTASSIUM, LOW PHOSPHORUS.
[2023-01-26] MEDS: buPROPion HCl XL 150 MG TAB.ER.24H PO (09:43)
[2023-01-26] MEDS: predniSONE 20 MG TABLET 40 MG PO (09:43)
[2023-01-26] MEDS: Sevelamer Carbonate Tablet 800 MG TABLET PO ×3 (09:43→20:52)
[2023-01-26] MEDS: carvediloL 25 MG TABLET PO (09:43)
[2023-01-26] MEDS: Propranolol HCL 20 MG TABLET 60 MG PO (09:43)
[2023-01-26] MEDS: Benzonatate 100 MG CAPSULE PO ×3 (09:43→20:52)
[2023-01-26] MEDS: guaiFENesin LA 600 MG TAB.ER.12H PO ×2 (09:43→20:51)
[2023-01-26] MEDS: Venlafaxine HCl ER 150 MG CAP.ER.24H PO (09:43)
[2023-01-26] MEDS: 0.9 % Sodium Chloride Flush 3 ML SYRINGE IVFLUSH ×3 (09:43→20:54)
[2023-01-26] MEDS: Aspirin Enteric Coated 81 MG TABLET.DR PO (09:43)
[2023-01-26] MEDS: Sodium Bicarbonate 650 MG TABLET 325 MG PO ×3 (09:44→20:52)
--- NOTE | 2023-01-26 10:50 | P.CDIC_ITS ---
CDI Concurrent Query Documentation Clarification: PHYSICIAN'S DOCUMENTATION REQUEST Date of Query: 01/26/23 1050 Patient Name: Naomy Doty Admit Date: 01/25/23 Dear Doctor, A review of the medical record indicates additional documentation may be needed. Please review below and update the documentation accordingly. Clinical Indicators: Is there a diagnosis that correlates with these lab findings below: Risk Factors/Clinical Indicators/Treatments BMI: 36.8 Height: 5ft 2in Weight: 91.2kg If possible, please provide an associated diagnosis related to the abnormal BMI, such as: For a BMI >= 40: * Severe or Morbid Obesity * Obesity * Due to excess calories * Drug induced * Due to other cause * With alveolar hypoventilation * Without alveolar hypoventilation Or: * BMI is not significant * Other (please specify) * Unable to determine Use of terms such as suspected, likely, concern for, or probable (associated with a specific diagnosis that is being evaluated, monitored, or treated as if it exists) are acceptable and can be coded in the inpatient setting, when documented at the time of discharge. Thank you, Mandie Stephens MS, RN, CCRN Extension: [phone] Please use your independent medical judgment in providing your response. THIS QUERY IS PART OF THE PERMANENT MEDICAL RECORD Provider Response: Obesity
[2023-01-26] MEDS: Lactulose 20 GM/30 ML SOLUTION PO (11:01)
[2023-01-26] MEDS: Docusate Sodium 100 MG CAPSULE PO (11:01)
--- NOTE | 2023-01-26 12:28 | PM.PNNEP ---
Subjective Subjective Date of Service: 01/26/23 Interval history: Seen and examined, events noted Physical Exam Vital Signs: Vital Signs: Last Vital Signs Temp 98.4 F 01/26/23 07:44 Pulse 56 01/26/23 12:06 Resp 18 01/26/23 12:06 BP 118/57 L 01/26/23 07:44 Pulse Ox 93 01/26/23 07:44 O2 Del Method 01/26/23 07:44 BMI result Body Mass Index 36.8 Const: Other: Constitutional : Awake, interactive, obese, not in distress Neck : Normal inspection, Supple Cardiovascular : RRR, no JVP, no lower extremity edema Respiratory : good bilateral air entry, no crackles, expiratory bilateral wheezes or rhonchi Gastrointestinal: soft, lax, Normal bowel sounds, Non tender Skin : Warm, Dry Neurological : Alert & oriented x3, No focal deficit General: cooperative, healthy appearing and no acute distress Orientation/consciousness: oriented to person, oriented to place and patient oriented x3 Limitations: no limitations HEENT: Head: Yes normal to inspection and Yes atraumatic Ears: hearing grossly normal bilaterally General nose exam: Normal external nose present Face and sinus: Yes normal facial exam Mouth: mucous membranes dry Eyes: General: appearance normal, both eyes and all related structures Pupils: Equal, round and reactive pupils present EOM: EOMs intact bilaterally Neck: Other: no midline cervical spinal tenderness Neck: Yes normal visual inspection and Yes no meningeal signs Resp: Effort & Inspection: normal respiratory effort and no respiratory distress Auscultation: clear to auscultation bilaterally, wheezes expiratory wheezes and throughout and diminished lung sounds diffuse Cardio: Rate: regular rate Heart sounds: S1 normal heart sound present and S2 normal heart sound present GI: Inspection: Yes normal to inspection Palpation (GI): Soft to palpation, nontender, no guarding and not rigid : General: Yes no CVA tenderness Back/Spine/Pelvis: Other: No midline thoracic/lumbar spinous tenderness/step-off or deformity Back: no CVA tenderness Skin: Rashes: no rashes Wounds: no wounds Neuro: Other: Forgetful, giving incorrect names to dialysis unit; 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 01/24/23 09:42 Blood - Venous Blood Culture - Preliminary No growth after 48 hours. Procedures Date of Service Date of Service: 01/26/23 Assessment & Plan Assessment and plan (1) ESRD (end stage renal disease) on dialysis: Status: Acute (2) Encephalopathy: Status: Acute Plan -ESRD: usu TTS - AMS ?. and ques back to BSL - Hb is at target--no EPO needed REC: cont HD TTS; d/c planning ( usu goes to HD unit in No Time Spent With Patient Time: Total time managing care of this patient today ____ minutes. Progress Note: Quality Stroke Does the patient have a stroke diagnosis?: No
--- NOTE | 2023-01-26 12:55 | MHC.CM.PN ---
[facility] REVIEWED PER HOSPITALIST PT MEDICALLY CLEARED FOR D/C HOWEVER PT IN NEED OF STR AND WOULD LIKE TO GO TO STR HOWEVER CM ATTEMPTING TO SECURE A SNF W/HD, REFERRAL EXPANDED TO [facility], CM WILL CONT TO FOLLOW REFERRALS AND D/C NEEDS.
[2023-01-26] MEDS: Glycerin Adult SUPP.RECT 1 SUPP PR (12:58)
--- NOTE | 2023-01-26 13:25 | P.PNIM_ITS ---
Subjective Subjective Date of Service: 01/26/23 Interval History: improved cough and dyspnea feels better overall pending SNF placement no other overnight events Review of Systems Review of Systems: Yes all other systems are reviewed and are negative Physical Exam Vital Signs: Vital Signs: Last Vital Signs Temp 98.4 F 01/26/23 07:44 Pulse 56 01/26/23 12:06 Resp 18 01/26/23 12:06 BP 118/57 L 01/26/23 07:44 Pulse Ox 93 01/26/23 07:44 O2 Del Method 01/26/23 07:44 BMI result Body Mass Index 36.8 Const: Other: Constitutional : Awake, interactive, obese, not in distress Neck : Normal inspection, Supple Cardiovascular : RRR, no JVP, no lower extremity edema Respiratory : good bilateral air entry, no crackles, expiratory bilateral wheezes or rhonchi Gastrointestinal: soft, lax, Normal bowel sounds, Non tender Skin : Warm, Dry Neurological : Alert & oriented x3, No focal deficit Objective Data Active Medications Acetaminophen (Acetaminophen 325 Mg Tablet) 650 mg PO Q6H PRN PRN Reason: Pain, Mild (Pain Scale 1-3) Last Admin: 01/26/23 03:25 Dose: 650 mg Documented By: EAGLE Aspirin (Aspirin Enteric Coated 81 Mg Tablet.) 81 mg PO DAILY [facility] Last Admin: 01/26/23 09:43 Dose: 81 mg Documented By: NATANAEL Atorvastatin Calcium (Atorvastatin Calcium 80 Mg Tablet) 80 mg PO BEDTIME [facility] Last Admin: 01/25/23 20:47 Dose: 80 mg Documented By: EAGLE Benzonatate (Benzonatate 100 Mg Capsule) 100 mg PO TID [facility] Last Admin: 01/26/23 09:43 Dose: 100 mg Documented By: NATANAEL Bupropion HCl (Bupropion Hcl Xl 150 Mg Tab.Er.24h) 150 mg PO DAILY [facility] Last Admin: 01/26/23 09:43 Dose: 150 mg Documented By: NATANAEL Carvedilol (Carvedilol 25 Mg Tablet) 25 mg PO BID [facility]; Protocol Last Admin: 01/26/23 09:43 Dose: 25 mg Documented By: NATANAEL Albuterol Sulfate 2.5 mg/ (Ipratropium [place] 0.5 mg) 0 mg INHALE RQ4H WHILE AWAKE [facility] Last Admin: 01/26/23 12:05 Dose: 2.5 each Documented By: CRISTIAN Docusate Sodium (Docusate Sodium 100 Mg Capsule) 100 mg PO DAILY PRN PRN Reason: Constipation Docusate Sodium (Docusate Sodium 100 Mg Capsule) 100 mg PO BID [facility] Last Admin: 01/26/23 11:01 Dose: 100 mg Documented By: NATANAEL Guaifenesin (Guaifenesin [place] 600 Mg Tab.Er.12h) 600 mg PO BID [facility] Last Admin: 01/26/23 09:43 Dose: 600 mg Documented By: NATANAEL Heparin Sodium (Porcine) (Heparin Sodium,Porcine 5,000 Unit/Ml Vial) 5,000 unit SUBCUT Q12H [facility] Last Admin: 01/26/23 03:25 Dose: 5,000 unit Documented By: DORINDAILCed Lactulose (Lactulose 20 Gm/30 Ml Solution) 20 gm PO BID [facility] Last Admin: 01/26/23 11:01 Dose: 20 gm Documented By: NATANAEL Lorazepam (Lorazepam 0.5 Mg Tablet) 0.5 mg PO BEDTIME PRN PRN Reason: Anxiety Last Admin: 01/25/23 20:48 Dose: 0.5 mg Documented By: EAGLE Ondansetron HCl (Ondansetron Hcl 4 Mg/2 Ml Vial) 4 mg IVPUSH Q8H PRN PRN Reason: Nausea and Vomiting Prednisone (Prednisone 20 Mg Tablet) 40 mg PO DAILY [facility] Last Admin: 01/26/23 09:43 Dose: 40 mg Documented By: NATANAEL Propranolol HCl (Propranolol Hcl 20 Mg Tablet) 60 mg PO BID [facility]; Protocol Last Admin: 01/26/23 09:43 Dose: 60 mg Documented By: NATANAEL Sevelamer Carbonate (Sevelamer Carbonate Tablet 800 Mg Tablet) 800 mg PO TID [facility] Last Admin: 01/26/23 09:43 Dose: 800 mg Documented By: NATANAEL Sodium Bicarbonate (Sodium Bicarbonate 650 Mg Tablet) 325 mg PO TID [facility] Last Admin: 01/26/23 09:44 Dose: 325 mg Documented By: NATANAEL Sodium Chloride (0.9 % Sodium Chloride Flush 3 Ml Syringe) [facility] Last Admin: 01/26/23 09:43 Dose: 3 ml Documented By: NATANAEL Venlafaxine HCl (Venlafaxine Hcl Er 150 Mg Cap.Er.24h) 150 mg PO DAILY [facility] Last Admin: 01/26/23 09:43 Dose: 150 mg Documented By: NATANAEL Labs 01/25/23 05:21 01/25/23 05:21 Microbiology Microbiology Results: Microbiology 01/24/23 09:42 Blood Culture - Preliminary Blood - Venous No growth after 48 hours. 01/24/23 09:42 Blood Culture - Preliminary Blood - Venous No growth after 48 hours. Assessment and Plan (1) ESRD (end stage renal disease) on dialysis: Status: Acute (2) COPD with acute exacerbation: Status: Acute (3) Physical deconditioning: Status: Acute Plan Pt is a 87-year-old female with a PMH significant for?COPD, HLD, HTN, ESRD on HD (Thu//Thu) who presents to the ED via EMS after falling at home. Pt will be admitted to the hospital under observation for treatment of COPD exacerbation. Acute COPD exacerbation DuoNebs q4 while awake Prednisone 40mg p.o. cough medicine ESRD on HD scheduled //Thu, missed thursday sessions Nephrology consult Dialysis today or tomorrow Fall patient fell and was unable to stand up again PT recommended SNF placement Diverticulitis Patient was seen in ED on 01/16/2023 and diagnosed with diverticulitis, started on Augmentin x10 days Continue Augmentin Elevated ammonia Pt's ammonia elevated at 71 Pt appears alert and oriented x3, not encephalopathic Monitor mentation Mood disorder Continue bupropion, venlafaxine HTN Coninue home meds HLD Continue statin Full Code Attending:?Dr. Davenport DVT Prophylaxis: Heparin Patient will need overnight hospital stay pending SNF placement Time Spent With Patient Time: Total time managing care of this patient today ____ minutes. Quality Stroke Does the patient have a stroke diagnosis?: No VTE Prior VTE?: No VTE Risk Level:: Medical - moderate - high VTE Device Contraindication: Treatment Not Indicated VTE Drug Contraindication: N/A - Med Ordered
[2023-01-26] MEDS: Atorvastatin Calcium 80 MG TABLET PO (20:51)
[2023-01-27] VITALS (8 sets, daily range): BP systolic 125–149; BP diastolic 61–69; PULSE 52–57; RESP 15–20; TEMP 36–36.7; O2SAT 89–98
[2023-01-27] MEDS: Acetaminophen 325 MG TABLET 650 MG PO ×2 (00:01→16:35)
[2023-01-27] MEDS: LORazepam 0.5 MG TABLET PO ×2 (00:01→20:24)
[2023-01-27] MEDS: Heparin Sodium,Porcine 5,000 UNIT/ML VIAL 5000 UNIT SUBCUT ×2 (03:56→16:30)
--- NOTE | 2023-01-27 12:16 | HO.PM.IMPN ---
Subjective Subjective Date of Service: 01/27/23 Interval History: improved cough and dyspnea feels better overall pending SNF placement no other overnight events Physical Exam Vital Signs: Vital Signs: Last Vital Signs Temp 97.9 F 01/27/23 07:47 Pulse 54 01/27/23 11:28 Resp 17 01/27/23 11:28 BP 149/69 H 01/27/23 07:47 Pulse Ox 98 01/27/23 07:47 O2 Del Method 01/27/23 07:47 BMI result Body Mass Index 36.8 Const: Other: Constitutional : Awake, interactive, obese, not in distress Neck : Normal inspection, Supple Cardiovascular : RRR, no JVP, no lower extremity edema Respiratory : good bilateral air entry, no crackles, expiratory bilateral wheezes or rhonchi Gastrointestinal: soft, lax, Normal bowel sounds, Non tender Skin : Warm, Dry Neurological : Alert & oriented x3, No focal deficit Objective Data Active Medications Acetaminophen (Acetaminophen 325 Mg Tablet) 650 mg PO Q6H PRN PRN Reason: Pain, Mild (Pain Scale 1-3) Last Admin: 01/27/23 00:01 Dose: 650 mg Documented By: JORGE Aspirin (Aspirin Enteric Coated 81 Mg Tablet.) 81 mg PO DAILY [facility] Last Admin: 01/27/23 09:11 Dose: Not Given Documented By: NATANAEL Non-Admin Reason: Off unit: Dialysis Atorvastatin Calcium (Atorvastatin Calcium 80 Mg Tablet) 80 mg PO BEDTIME [facility] Last Admin: 01/26/23 20:51 Dose: 80 mg Documented By: LISA Benzonatate (Benzonatate 100 Mg Capsule) 100 mg PO TID [facility] Last Admin: 01/27/23 09:11 Dose: Not Given Documented By: NATANAEL Non-Admin Reason: Off unit: Dialysis Bupropion HCl (Bupropion Hcl Xl 150 Mg Tab.Er.24h) 150 mg PO DAILY [facility] Last Admin: 01/27/23 09:11 Dose: Not Given Documented By: NATANAEL Non-Admin Reason: Off unit: Dialysis Carvedilol (Carvedilol 25 Mg Tablet) 25 mg PO BID [facility]; Protocol Last Admin: 01/27/23 09:11 Dose: Not Given Documented By: NATANAEL Non-Admin Reason: Off unit: Dialysis Albuterol Sulfate 2.5 mg/ (Ipratropium [place] 0.5 mg) 0 mg INHALE RQ4H WHILE AWAKE [facility] Last Admin: 01/27/23 11:25 Dose: 1 each Documented By: MAULIK Docusate Sodium (Docusate Sodium 100 Mg Capsule) 100 mg PO DAILY PRN PRN Reason: Constipation Docusate Sodium (Docusate Sodium 100 Mg Capsule) 100 mg PO BID [facility] Last Admin: 01/27/23 09:11 Dose: Not Given Documented By: NATANAEL Non-Admin Reason: Off unit: Dialysis Guaifenesin (Guaifenesin [place] 600 Mg Tab.Er.12h) 600 mg PO BID [facility] Last Admin: 01/27/23 09:11 Dose: Not Given Documented By: NATANAEL Non-Admin Reason: Off unit: Dialysis Heparin Sodium (Porcine) (Heparin Sodium,Porcine 5,000 Unit/Ml Vial) 5,000 unit SUBCUT Q12H [facility] Last Admin: 01/27/23 03:56 Dose: 5,000 unit Documented By: JORGE Lactulose (Lactulose 20 Gm/30 Ml Solution) 20 gm PO BID [facility] Last Admin: 01/27/23 09:11 Dose: Not Given Documented By: NATANAEL Non-Admin Reason: Off unit: Dialysis Lorazepam (Lorazepam 0.5 Mg Tablet) 0.5 mg PO BEDTIME PRN PRN Reason: Anxiety Last Admin: 01/27/23 00:01 Dose: 0.5 mg Documented By: JORGE Ondansetron HCl (Ondansetron Hcl 4 Mg/2 Ml Vial) 4 mg IVPUSH Q8H PRN PRN Reason: Nausea and Vomiting Prednisone (Prednisone 20 Mg Tablet) 40 mg PO DAILY [facility] Last Admin: 01/27/23 09:12 Dose: Not Given Documented By: NATANAEL Non-Admin Reason: Off unit: Dialysis Propranolol HCl (Propranolol Hcl 20 Mg Tablet) 60 mg PO BID [facility]; Protocol Last Admin: 01/27/23 09:12 Dose: Not Given Documented By: NATANAEL Non-Admin Reason: Off unit: Dialysis Sevelamer Carbonate (Sevelamer Carbonate Tablet 800 Mg Tablet) 800 mg PO TID [facility] Last Admin: 01/27/23 09:12 Dose: Not Given Documented By: NATANAEL Non-Admin Reason: Off unit: Dialysis Sodium Bicarbonate (Sodium Bicarbonate 650 Mg Tablet) 325 mg PO TID [facility] Last Admin: 01/27/23 09:12 Dose: Not Given Documented By: NATANAEL Non-Admin Reason: Off unit: Dialysis Sodium Chloride (0.9 % Sodium Chloride Flush 3 Ml Syringe) 3 ml IVFLUSH QSHIFT [facility] Last Admin: 01/27/23 09:10 Dose: Not Given Documented By: NATANAEL Non-Admin Reason: Off unit: Dialysis Venlafaxine HCl (Venlafaxine Hcl Er 150 Mg Cap.Er.24h) 150 mg PO DAILY [facility] Last Admin: 01/27/23 09:12 Dose: Not Given Documented By: NATANAEL Non-Admin Reason: Off unit: Dialysis Labs 01/25/23 05:21 01/25/23 05:21 Microbiology Microbiology Results: Microbiology 01/24/23 09:42 Blood Culture - Preliminary Blood - Venous No growth after 48 hours. 01/24/23 09:42 Blood Culture - Preliminary Blood - Venous No growth after 48 hours. Assessment and Plan (1) Physical deconditioning: Status: Acute (2) ESRD (end stage renal disease) on dialysis: Status: Acute (3) COPD with acute exacerbation: Status: Acute Plan Pt is a 87-year-old female with a PMH significant for?COPD, HLD, HTN, ESRD on HD (Thu//Thu) who presents to the ED via EMS after falling at home. Pt will be admitted to the hospital under observation for treatment of COPD exacerbation. Acute COPD exacerbation DuoNebs q4 while awake Prednisone 40mg p.o. cough medicine ESRD on HD scheduled , missed thursday sessions Nephrology consult Dialysis today Fall patient fell and was unable to stand up again PT recommended SNF placement Diverticulitis Patient was seen in ED on 01/16/2023 and diagnosed with diverticulitis, started on Augmentin x10 days Continue Augmentin Elevated ammonia Pt's ammonia elevated at 71 Pt appears alert and oriented x3, not encephalopathic Monitor mentation Mood disorder Continue bupropion, venlafaxine HTN Coninue home meds HLD Continue statin Full Code Attending:?Dr. Davenport DVT Prophylaxis: Heparin Patient will need overnight hospital stay pending SNF placement Time Spent With Patient Time: Total time managing care of this patient today ____ minutes. Quality Stroke Does the patient have a stroke diagnosis?: No VTE Prior VTE?: No VTE Risk Level:: Medical - moderate - high VTE Device Contraindication: Treatment Not Indicated VTE Drug Contraindication: N/A - Med Ordered
--- NOTE | 2023-01-27 12:53 | MHC.CM.PN ---
EMR REVIEWED, CM RECEIVED MESSAGE FROM [facility] THAT THEY ACTUALLY DO NOT HAVE A HD SPOT FOR PT AND UNSURE IF THEY WILL HAVE ONE ON THURSDAY THAT IS WHEN PT'S NEXT DIALYSIS DAY OR IF PT COULD GO TO DIALYSIS [facility] SHE DOES AT HOME AND CM STILL AWAITING RESPONSE. CM CONTACTED LIAISON FROM [facility] WHO HAD BEEN WILLING TO OFFER A BED HOWEVER NOW REPORTING THEY ARE NOT CONTRACTED W/PT'S [employer] MEDICARE. HOSPITALIST AND NSG AWARE, CM ALSO ATTEMPTED TO CONTACT PTS AMIRA JIMENEZ AT 12:42PM NUMBER ON FILE AND MESSAGE LEFT W/CM CONTACT INFO.
[2023-01-27 13:35] LABS: COVID-19 Test Negative (Negative); IDNOW Serial# BCCEAD1C
--- NOTE | 2023-01-27 14:55 | P.PNNP_ITS ---
Subjective Subjective Date of Service: 01/27/23 Interval history: Seen and examined Physical Exam Vital Signs: Vital Signs: Last Vital Signs Temp 97.9 F 01/27/23 07:47 Pulse 54 01/27/23 11:28 Resp 17 01/27/23 11:28 BP 149/69 H 01/27/23 07:47 Pulse Ox 98 01/27/23 07:47 O2 Del Method 01/27/23 07:47 BMI result Body Mass Index 36.8 Const: Other: Constitutional : Awake, interactive, obese, not in distress Neck : Normal inspection, Supple Cardiovascular : RRR, no JVP, no lower extremity edema Respiratory : good bilateral air entry, no crackles, expiratory bilateral wheezes or rhonchi Gastrointestinal: soft, lax, Normal bowel sounds, Non tender Skin : Warm, Dry Neurological : Alert & oriented x3, No focal deficit General: cooperative, healthy appearing and no acute distress Orientation/consciousness: oriented to person, oriented to place and patient oriented x3 Limitations: no limitations HEENT: Head: Yes normal to inspection and Yes atraumatic Ears: hearing grossly normal bilaterally General nose exam: Normal external nose present Face and sinus: Yes normal facial exam Mouth: mucous membranes dry Eyes: General: appearance normal, both eyes and all related structures Pupils: Equal, round and reactive pupils present EOM: EOMs intact bilaterally Neck: Other: no midline cervical spinal tenderness Neck: Yes normal visual inspection and Y es no meningeal signs Resp: Effort & Inspection: normal respiratory effort and no respiratory distress Auscultation: clear to auscultation bilaterally, wheezes expiratory wheezes and throughout and diminished lung sounds diffuse Cardio: Rate: regular rate Heart sounds: S1 normal heart sound present and S2 normal heart sound present GI: Inspection: Yes normal to inspection Palpation (GI): Soft to palpation, nontender, no guarding and not rigid : General: Yes no CVA tenderness Back/Spine/Pelvis: Other: No midline thoracic/lumbar spinous tenderness/step-off or deformity Back: no CVA tenderness Skin: Rashes: no rashes Wounds: no wounds Neuro: Other: Forgetful, giving incorrect names to dialysis unit; cannot tell me her [employer] General: oriented to person, oriented to place, patient oriented x3, tone normal, moves all extremities, no meningeal signs, no focal motor deficits and CN's II-XI intact bilaterally Cranial nerves: Yes Equal, round and reactive pupils present Cognition (Neuro): abnormal cognition Gait exam (Neuro): Normal gait present Extrem: General: Yes normal to inspection and Yes no pedal edema Objective Data Labs 01/25/23 05:21 01/25/23 05:21 Labs: Laboratory Results - last 24 hr 01/27/23 12:40 COVID-19 ([facility]ANDA) Negative COVID-19 Clin Com See Note Microbiology Microbiology Results: Microbiology 01/24/23 09:42 Blood - Venous Blood Culture - Preliminary No growth after 48 hours. 01/24/23 09:42 Blood - Venous Blood Culture - Preliminary No growth after 48 hours. Procedures Date of Service Date of Service: 01/27/23 Assessment & Plan Assessment and plan (1) ESRD (end stage renal disease) on dialysis: Status: Acute (2) Encephalopathy: Status: Acute Plan -ESRD: usu TTS - AMS ?. and ques back to [facility] - Hb is at target--no EPO needed REC: cont HD TTS; d/c planning ( usu goes to HD unit in [facility]) but now going to [facility] for Rehab Time Spent With Patient Time: Total time managing care of this patient today ____ minutes. Progress Note: Quality Stroke Does the patient have a stroke diagnosis?: No
--- NOTE | 2023-01-27 16:08 | MHC.CM.PN ---
Addendum entered by Sanam Farr RN 01/27/23 16:32: SNF REFERRAL EXPANDED HOWEVER CM ALSO RECEIVED ANOTHER CALL FROM [facility] REPORTING THEY DO HAVE A HD SLOT AND IF THEY CAN CONFIRM A BED THEY WILL START AUTH PROCESS TODAY. Original Note: CM RECEIVED CALL FROM [facility] LIAISON WHO REPORTS PT CAN NOT TRAVEL TO HER HD IN [facility] BECAUSE SHE WOULD BE OUT OF THE BUILDING FOR TOO LONG SO SHE WOULD NEED A DIALYSIS SLOT OR A SNF CLOSER TO [facility], LIAISON WILL FOLLOW-UP IN AM AND CM WILL EXPAND REFERRAL. CM WILL CONT TO FOLLOW.
[2023-01-27] MEDS: Sodium Bicarbonate 650 MG TABLET 325 MG PO ×2 (16:30→20:20)
[2023-01-27] MEDS: Sevelamer Carbonate Tablet 800 MG TABLET PO ×2 (16:30→20:19)
[2023-01-27] MEDS: Benzonatate 100 MG CAPSULE PO ×2 (16:30→20:19)
[2023-01-27] MEDS: 0.9 % Sodium Chloride Flush 3 ML SYRINGE IVFLUSH (16:30)
[2023-01-27] MEDS: guaiFENesin LA 600 MG TAB.ER.12H PO (20:19)
[2023-01-27] MEDS: Propranolol HCL 20 MG TABLET 60 MG PO (20:19)
[2023-01-27] MEDS: carvediloL 25 MG TABLET PO (20:20)
[2023-01-27] MEDS: Atorvastatin Calcium 80 MG TABLET PO (20:20)
[2023-01-27] MEDS: Docusate Sodium 100 MG CAPSULE PO (20:20)
[2023-01-27] MEDS: Lactulose 20 GM/30 ML SOLUTION PO (20:20)
[2023-01-28] MEDS: 0.9 % Sodium Chloride Flush 3 ML SYRINGE IVFLUSH ×2 (01:17→09:45)
[2023-01-28 04:00] VITALS: BP 112/57; PULSE 49; RESP 19; TEMP 36.4; O2SAT 95
[2023-01-28] MEDS: Heparin Sodium,Porcine 5,000 UNIT/ML VIAL 5000 UNIT SUBCUT (04:01)
[2023-01-28 04:15] VITALS: PULSE 58
[2023-01-28 07:22] VITALS: PULSE 62; RESP 17; O2SAT 99
[2023-01-28 07:31] VITALS: BP 126/60; PULSE 51; RESP 18; TEMP 36.9; O2SAT 100
[2023-01-28] MEDS: Docusate Sodium 100 MG CAPSULE PO (09:44)
[2023-01-28] MEDS: Lactulose 20 GM/30 ML SOLUTION PO (09:44)
[2023-01-28] MEDS: Venlafaxine HCl ER 150 MG CAP.ER.24H PO (09:44)
[2023-01-28] MEDS: Sodium Bicarbonate 650 MG TABLET 325 MG PO ×2 (09:44→14:00)
[2023-01-28] MEDS: guaiFENesin LA 600 MG TAB.ER.12H PO (09:44)
[2023-01-28] MEDS: predniSONE 20 MG TABLET 40 MG PO (09:44)
[2023-01-28] MEDS: Propranolol HCL 20 MG TABLET 60 MG PO (09:45)
[2023-01-28] MEDS: buPROPion HCl XL 150 MG TAB.ER.24H PO (09:45)
[2023-01-28] MEDS: carvediloL 25 MG TABLET PO (09:45)
[2023-01-28] MEDS: Sevelamer Carbonate Tablet 800 MG TABLET PO ×2 (09:45→14:00)
[2023-01-28] MEDS: Aspirin Enteric Coated 81 MG TABLET.DR PO (09:45)
[2023-01-28] MEDS: Benzonatate 100 MG CAPSULE PO ×2 (09:45→14:00)
--- NOTE | 2023-01-28 09:58 | MHC.CM.PN ---
PT REMAINS MEDICALLY CLEARED FOR D/C, PT WILL DISCHARGE TO [facility] IF AUTH GRANTED BY [employer] FOR BLS TRANSPORT
[2023-01-28] MEDS: Acetaminophen 325 MG TABLET 650 MG PO (10:16)
[2023-01-28] MEDS: Loratadine 10 MG TABLET PO (10:17)
--- NOTE | 2023-01-28 10:30 | HO.PM.IMPN ---
Subjective Subjective Date of Service: 01/28/23 Interval History: improved cough and dyspnea feels better overall pending SNF placement no other overnight events Physical Exam Vital Signs: Vital Signs: Last Vital Signs Temp 98.4 F 01/28/23 07:31 Pulse 51 01/28/23 07:31 Resp 18 01/28/23 07:31 BP 126/60 01/28/23 07:31 Pulse Ox 100 01/28/23 07:31 O2 Del Method 01/28/23 07:31 BMI result Body Mass Index 36.8 Const: Other: Constitutional : Awake, interactive, obese, not in distress Neck : Normal inspection, Supple Cardiovascular : RRR, no JVP, no lower extremity edema Respiratory : good bilateral air entry, no crackles, expiratory bilateral wheezes or rhonchi Gastrointestinal: soft, lax, Normal bowel sounds, Non tender Skin : Warm, Dry Neurological : Alert & oriented x3, No focal deficit General: cooperative, healthy appearing and no acute distress Orientation/consciousness: oriented to person, oriented to place and patient oriented x3 Limitations: no limitations HEENT: Head: Yes normal to inspection and Yes atraumatic Ears: hearing grossly normal bilaterally General nose exam: Normal external nose present Face and sinus: Yes normal facial exam Mouth: mucous membranes dry Eyes: General: appearance normal, both eyes and all related structures Pupils: Equal, round and reactive pupils present EOM: EOMs intact bilaterally Neck: Other: no midline cervical spinal tenderness Neck: Yes normal visual inspection and Yes no meningeal signs Resp: Effort & Inspection: normal respiratory effort and no respiratory distress Auscultation: clear to auscultation bilaterally, wheezes expiratory wheezes and throughout and diminished lung sounds diffuse Cardio: Rate: regular rate Heart sounds: S1 normal heart sound present and S2 normal heart sound present GI: Inspection: Yes normal to inspection Palpation (GI): Soft to palpation, nontender, no guarding and not rigid : General: Yes no CVA tenderness Back/Spine/Pelvis: Other: No midline thoracic/lumbar spinous tenderness/step-off or deformity Back: no CVA tenderness Skin: Rashes: no rashes Wounds: no wounds Neuro: Other: Forgetful, giving incorrect names to dialysis unit; cannot tell me her [employer] General: oriented to person, oriented to place, patient oriented x3, tone normal, moves all extremities, no meningeal signs, no focal motor deficits and CN's II-XI intact bilaterally Cranial nerves: Yes Equal, round and reactive pupils present Cognition (Neuro): abnormal cognition Gait exam (Neuro): Normal gait present Extrem: General: Yes normal to inspection and Yes no pedal edema Objective Data Active Medications Acetaminophen (Acetaminophen 325 Mg Tablet) 650 mg PO Q6H PRN PRN Reason: Pain, Mild (Pain Scale 1-3) Last Admin: 01/28/23 10:16 Dose: 650 mg Documented By: YOBANI Aspirin (Aspirin Enteric Coated 81 Mg Tablet.Dr) 81 mg PO DAILY [facility] Last Admin: 01/28/23 09:45 Dose: 81 mg Documented By: YOBANI Atorvastatin Calcium (Atorvastatin Calcium 80 Mg Tablet) 80 mg PO BEDTIME [facility] Last Admin: 01/27/23 20:20 Dose: 80 mg Documented By: NATANAEL Benzonatate (Benzonatate 100 Mg Capsule) 100 mg PO TID [facility] Last Admin: 01/28/23 09:45 Dose: 100 mg Documented By: YOBANI Bupropion HCl (Bupropion Hcl Xl 150 Mg Tab.Er.24h) 150 mg PO DAILY [facility] Last Admin: 01/28/23 09:45 Dose: 150 mg Documented By: YOBANI Carvedilol (Carvedilol 25 Mg Tablet) 25 mg PO BID [facility]; Protocol Last Admin: 01/28/23 09:45 Dose: 25 mg Documented By: YOBANI Albuterol Sulfate 2.5 mg/ (Ipratropium Chaplin 0.5 mg) 0 mg INHALE RQ4H WHILE AWAKE [facility] Last Admin: 01/28/23 07:21 Dose: 1 each Documented By: MAULIK Docusate Sodium (Docusate Sodium 100 Mg Capsule) 100 mg PO DAILY PRN PRN Reason: Constipation Docusate Sodium (Docusate Sodium 100 Mg Capsule) 100 mg PO BID [facility] Last Admin: 01/28/23 09:44 Dose: 100 mg Documented By: YOBANI Guaifenesin (Guaifenesin La 600 Mg Tab.Er.12h) 600 mg PO BID [facility] Last Admin: 01/28/23 09:44 Dose: 600 mg Documented By: YOBANI Heparin Sodium (Porcine) (Heparin Sodium,Porcine 5,000 Unit/Ml Vial) 5,000 unit SUBCUT Q12H [facility] Last Admin: 01/28/23 04:01 Dose: 5,000 unit Documented By: JORGE Lactulose (Lactulose 20 Gm/30 Ml Solution) 20 gm PO BID [facility] Last Admin: 01/28/23 09:44 Dose: 20 gm Documented By: YOBANI Loratadine (Loratadine 10 Mg Tablet) 10 mg PO DAILY [facility] Last Admin: 01/28/23 10:17 Dose: 10 mg Documented By: YOBANI Lorazepam (Lorazepam 0.5 Mg Tablet) 0.5 mg PO BEDTIME PRN PRN Reason: Anxiety Last Admin: 01/27/23 20:24 Dose: 0.5 mg Documented By: NATANAEL Ondansetron HCl (Ondansetron Hcl 4 Mg/2 Ml Vial) 4 mg IVPUSH Q8H PRN PRN Reason: Nausea and Vomiting Prednisone (Prednisone 20 Mg Tablet) 40 mg PO DAILY [facility] Last Admin: 01/28/23 09:44 Dose: 40 mg Documented By: YOBANI Propranolol HCl (Propranolol Hcl 20 Mg Tablet) 60 mg PO BID [facility]; Protocol Last Admin: 01/28/23 09:45 Dose: 60 mg Documented By: YOBANI Sevelamer Carbonate (Sevelamer Carbonate Tablet 800 Mg Tablet) 800 mg PO TID [facility] Last Admin: 01/28/23 09:45 Dose: 800 mg Documented By: YOBANI Sodium Bicarbonate (Sodium Bicarbonate 650 Mg Tablet) 325 mg PO TID [facility] Last Admin: 01/28/23 09:44 Dose: 325 mg Documented By: YOBANI Sodium Chloride (0.9 % Sodium Chloride Flush 3 Ml Syringe) 3 ml IVFLUSH QSHIFT [facility] Last Admin: 01/28/23 09:45 Dose: 3 ml Documented By: YOBANI Venlafaxine HCl (Venlafaxine Hcl Er 150 Mg Cap.Er.24h) 150 mg PO DAILY [facility] Last Admin: 01/28/23 09:44 Dose: 150 mg Documented By: YOBANI Labs 01/25/23 05:21 01/25/23 05:21 Labs: Laboratory Results - last 24 hr 01/27/23 12:40 COVID-19 ([facility]) Negative COVID-19 Clin Com See Note Assessment and Plan (1) Physical deconditioning: Status: Acute (2) ESRD (end stage renal disease) on dialysis: Status: Acute (3) COPD with acute exacerbation: Status: Acute Plan 87-year-old female with a PMH significant for?COPD, HLD, HTN, ESRD on HD () presnted with fall, became sob in ED while awaiting placement Acute COPD exacerbation DuoNebs q4 while awake Prednisone 40mg p.o. cough medicine ESRD on HD scheduled , missed thursday sessions Nephrology following Fall patient fell and was unable to stand up again PT recommended SNF placement ? of mild acute Diverticulitis Patient was seen in ED on 01/16/2023 and diagnosed with diverticulitis, treated with course of augmentin in ED Mood disorder Continue bupropion, venlafaxine HTN Continue home meds HLD Continue statin Full Code DVT Prophylaxis: Heparin Patient will need overnight hospital stay pending SNF placement Time Spent With Patient Time: Total time managing care of this patient today ____ minutes. Quality Stroke Does the patient have a stroke diagnosis?: No VTE Prior VTE?: No VTE Risk Level:: Medical - moderate - high VTE Device Contraindication: Treatment Not Indicated VTE Drug Contraindication: N/A - Med Ordered
--- NOTE | 2023-01-28 11:11 | MHC.CM.PN ---
Addendum entered by Sanam Farr RN 01/28/23 11:13: IMM DELIVERED TO PT AT BEDSIDE. Original Note: CM RECEIVED A MESSAGE FROM [facility] THAT AUTH WAS GRANTED AND PT CAN TRANSFER AT 2PM, [facility] BLS TRANSPORT. CM ATTEMPTED TO CONTACT PT'S SON BARBARA AT 11:05AM, NO ANSWER AND MESSAGE LEFT.
--- NOTE | 2023-01-28 11:13 | P.DS_ITS ---
DS: Providers Provider Date of Service: 01/28/23 Date of admission: 01/25/23 11:11 Primary care physician: Joshua Schaeffer MD Consults: 01/24/23 16:21 Consult to Nephrology Routine Consulting Provider: Liane Perry Reason for consultation: Pt on HD //Thu DS: Diagnosis Discharge Diagnosis (1) Physical deconditioning: Status: Acute (2) ESRD (end stage renal disease) on dialysis: Status: Acute (3) COPD with acute exacerbation: Status: Acute DS: Summary Hospital Course Hospital Course: from initial hpi: Pt is a 87-year-old female with a PMH significant for?COPD, HLD, HTN, ESRD on HD (Thu//Thu) who presents to the ED via EMS after falling at home. Pt lives alone and ambulates with a walker. Pt states she woke this morning at 5:00 and went to the kitchen to retrieve her phone. On the way pt felt dizzy and her legs gave out. She was using her walker but fell on the floor. Denies heads trike, LOC. Pt too weak to stand up, and had to crawl on the floor over the next couple of hours to get to her phone in the kitchen. She notes she has had increased lightheadedness and dizziness over the past few days. Increased SOB since last night, worse this morning. Pt used her inhaler yesterday and it helped some. Has had some cough x 3 days, mildly productive of whitish sputum today. Pt denies chest pain/pressure, palpitations. No headache, vision changes. Denies back pain. Of note, pt was seen last week in ED on 01/16/2023 for abdominal pain and diarrhea and diagnosed with diverticulitis, started on Augmentin x10 days. In the ED pt was afebrile and satting at 96% on room air. Labs were significant for or WBC WNL, H&H of 11.5/37.2, creatinine of 4.92, mild transaminitis, troponin elevated at 26.9 with repeat 28/12, BNP 525, ammonia 71.? Patient tested negative for influenza A and B, RSV, COVID. CXR showed no evidence of acute cardiopulmonary disease.? CT?of head and cervical spine showed no evidence of intracranial space-occupying mass, bleed, or infarct, no skull fracture, and no CT evidence of cervical spine fracture. EKG demonstrated normal sinus rhythm. Pt was treated with Duonebs, Solu-Medrol, and magnesium sulfate. Pt will be admitted to the hospital under observation for treatment of COPD exacerbation. hospital course: Patient was admitted for COPD with acute decompensation. She has 2 risk steroids and bronchodilators and symptoms significantly improved. For end-stage renal disease on hemodialysis she was continued on hemodialysis. For fall she was seen by physical therapy recommended placement at a senior care facility for short-term rehab. For mild acute diverticulitis patient completed Augmentin course. For mood disorder she was continue on bupropion and venlafaxine. For hypertension she was continued on propanolol, carvedilol. For hyperlipidemia she was continued on statin. Patient is feeling better will be discharged senior care facility. Time Spent with Patient Time attestation: Total time managing care of this patient today ____ minutes. Discharge coordination time: Greater than 30 minutes Quality: Safe Use of Opioids Does Pt have an Active Cancer Diagnosis on the Problem List?: No Quality: Stroke Does the patient have a stroke diagnosis?: No Physical Exam Vital Signs: Vital Signs: Last Vital Signs Temp 98.4 F 01/28/23 07:31 Pulse 51 01/28/23 07:31 Resp 18 01/28/23 07:31 BP 126/60 01/28/23 07:31 Pulse Ox 100 01/28/23 07:31 O2 Del Method 01/28/23 07:31 BMI result Body Mass Index 36.8 Const: Other: Constitutional : Awake, interactive, obese, not in distress Neck : Normal inspection, Supple Cardiovascular : RRR, no JVP, no lower extremity edema Respiratory : good bilateral air entry, no crackles, expiratory bilateral wheezes or rhonchi Gastrointestinal: soft, lax, Normal bowel sounds, Non tender Skin : Warm, Dry Neurological : Alert & oriented x3, No focal deficit General: cooperative, healthy appearing and no acute distress Orientation/consciousness: oriented to person, oriented to place and patient oriented x3 Limitations: no limitations HEENT: Head: Yes normal to inspection and Yes atraumatic Ears: hearing grossly normal bilaterally General nose exam: Normal external nose present Face and sinus: Yes normal facial exam Mouth: mucous membranes dry Eyes: General: appearance normal, both eyes and all related structures Pupils: Equal, round and reactive pupils present EOM: EOMs intact bilaterally Neck: Other: no midline cervical spinal tenderness Neck: Yes normal visual inspection and Yes no meningeal signs Resp: Effort & Inspection: normal respiratory effort and no respiratory distress Auscultation: clear to auscultation bilaterally, wheezes expiratory wheezes and throughout and diminished lung sounds diffuse Cardio: Rate: regular rate Heart sounds: S1 normal heart sound present and S2 normal heart sound present GI: Inspection: Yes normal to inspection Palpation (GI): Soft to palpation, nontender, no guarding and not rigid : General: Yes no CVA tenderness Back/Spine/Pelvis: Other: No midline thoracic/lumbar spinous tenderness/step-off or deformity Back: no CVA tenderness Skin: Rashes: no rashes Wounds: no wounds Neuro: Other: Forgetful, giving incorrect names to dialysis unit; cannot tell me her [employer] General: oriented to person, oriented to place, patient oriented x3, tone normal, moves all extremities, no meningeal signs, no focal motor deficits and CN's II-XI intact bilaterally Cranial nerves: Yes Equal, round and reactive pupils present Cognition (Neuro): abnormal cognition Gait exam (Neuro): Normal gait present Extrem: General: Yes normal to inspection and Yes no pedal edema DS: Data Data Completed and Pending Labs on day of discharge: Laboratory Results - last 24 hr 01/27/23 12:40 COVID-19 ([facility]) Negative COVID-19 Clin Com See Note Preliminary micro results at discharge 01/24/23 09:42 Blood Culture - Preliminary Blood - Venous No growth after 48 hours. 01/24/23 09:42 Blood Culture - Preliminary Blood - Venous No growth after 48 hours. Discharge Plan Discharge Anticipated Discharge Date/Time: 01/26/23 10:28 Patient Disposition: Xfer SNF Discharge Diagnosis: copd Referrals: Physician,Unknown J [Physician] - 1 Week Discharge Medications: New prednisone 20 mg Tablet 40 mg PO DAILY Qty: 6 0RF benzonatate 100 mg Capsule 100 mg PO TID Qty: 30 0RF Continued lorazepam 0.5 mg tablet 0.5 mg PO BEDTIME PRN (Reason: Anxiety) Qty: 30 1RF carvedilol 25 mg tablet 1 tab PO BID (DME) T.E.D. Knee [id number] Misc See Rx Instructions .Route Qty: 2 0RF Rx Instructions: As directed propranolol 60 mg tablet 1 tab PO BID lidocaine-prilocaine 2.5-2.5 % cream See Rx Instructions .ROUTE .COMPLEX Rx Instructions: apply small amount to access site (AVF) 1 to 2 hours before dialysis. cover with occlusive dressing (saran wrap) lidocaine 5 % adhesive patch,medicated 1 patch topical DAILY rosuvastatin 20 mg tablet 1 tab PO BEDTIME bupropion HCl 150 mg tablet extended release 24 hr 1 tab PO DAILY venlafaxine 150 mg tablet extended release 24hr 1 tab PO DAILY sodium bicarbonate 325 mg Tablet 325 mg PO TID aspirin 81 mg Tablet,Delayed Release (Dr/Ec) 81 mg PO DAILY sevelamer carbonate 800 mg tablet 1 tab PO TID fexofenadine [Anastasiia Allergy] 180 mg Tablet 180 mg PO DAILY PRN (Reason: Allergy Symptoms) Discontinued gabapentin 100 mg capsule 1 cap PO BEDTIME amoxicillin-pot clavulanate [Augmentin] 500-125 mg tablet 1 tab PO BID Qty: 19 0RF Rx Instructions: PT REPORTS 3 PILLS LEFT; END DATE 01/25/23 Discharge Orders: Discharge Order (Routine); Ordered 01/28/23 Ordered By: Erick Mari Diet: Advance to usual diet Activity on Discharge: As tolerated Stand Alone Forms: Patient Portal Discharge page Care Plan Goals: recovery Health Concerns: fall, copd Plan of Treatment: rehab Assessment: see above
[2023-01-28 11:33] VITALS: PULSE 52; RESP 18; O2SAT 100
--- NOTE | 2023-01-29 15:49 | P.CDIM_ITS ---
PROVIDER RESPONSE TEXT: To clarify, the appropriate diagnosis supported by the clinical indicators: Metabolic QUERY TEXT: Retrospective Query PHYSICIAN'S DOCUMENTATION REQUEST Date of Query: 01/29/2023 03:39 PM EST Patient Name: Naomy Doty Admit Date: 01/25/[address] Mari, A review of the medical record indicates additional documentation may be needed. Please review below and update the documentation accordingly. Clinical Indicators: POA/RESOLVED/RULE OUT/TREAT Per provider progress notes: Patient presents to the hospital complaining of worsening shortness of breath and increased confusio n. ROS limited secondary to patient's acute mental status Per Nephrology notes on 01/25 & 01/26: Encephalopathy: Status: Acute Plan - AMS Per RN assessments: Patient disoriented to time and situation and is confused and forgetful. Per ED note: Patient lives home alone states was on the ground for unknown amount of time. Other risk factors: -Patient with ESRD and on hemodialysis -Patient with COPD exacerbation Based on the above, please please confirm/rule out, the known or suspected diagnosis of encephalopath y: Metabolic Toxic Toxic metabolic Other (explain) Clinically unable to determine (explain) Thank you, Mandie Stephens MS, RN, CCRN Use of terms such as suspected, likely, concern for, or probable (associated with a specific diagnosi s that is being evaluated, monitored, or treated as if it exists) are acceptable and can be coded in the inpatient se tting, when documented at the time of discharge. Please use your independent medical judgment in providing your response. THIS QUERY IS PART OF THE PERMANENT MEDICAL RECORD
== END 2023-01-28 14:12 | disposition skilled nursing facility (03) | DRG 190 ==
LOC: HO.ED 15:16 → HO.EDOVER 16:27 → HO.S3 19:42
PROVIDERS: Physician Assistant; Student in an Organized Health Care Education/Training Program; Admitting Provider Student in an Organized Health Care Education/Training Program; Emergency Provider Emergency Medicine; PCP Internal Medicine; Visit Provider Internal Medicine
DX: J44.1 Chronic obstructive pulmonary disease with (acute) exacerbation (principal); N18.6 End stage renal disease; I12.0 Hypertensive chronic kidney disease with stage 5 chronic kidney disease or end stage renal disease; K57.92 Diverticulitis of intestine, part unspecified, without perforation or abscess without bleeding; E66.9 Obesity, unspecified; Z68.36 Body mass index [BMI] 36.0-36.9, adult; Z91.81 History of falling; F39 Unspecified mood [affective] disorder; Z99.2 Dependence on renal dialysis; E78.00 Pure hypercholesterolemia, unspecified; Z20.822 Contact with and (suspected) exposure to COVID-19; Z79.82 Long term (current) use of aspirin; Z79.52 Long term (current) use of systemic steroids; Z79.899 Other long term (current) drug therapy
CPT/HCPCS: 0241U; 36415; 70450; 71045; 72125; 80048; 80076; 82140; 82550; 83605; 83690; 83735; 83880; 84484; 85025; 85027; 85610; 87040; 87635; 90935; 90999; 93005; 94640; 97116; 97162; 99285; J1643; J2930; J3475

== ENCOUNTER 2023-02-22 13:19 | Inpatient (IN) | payer MEDICARE, MEDICAID, SELFPAY ==
[2023-02-22] VITALS (10 sets, daily range): BP systolic 88–118; BP diastolic 35–76; PULSE 56–92; RESP 12–16; TEMP 36.4–36.9; O2SAT 93–98; BMI 35.2
--- NOTE | ~2023-02-22 | XR_ITS ---
EXAMINATION: XR CHEST CLINICAL INFORMATION: Dizziness COMPARISON: 01/24/2023 TECHNIQUE: 2 views of the chest were obtained. FINDINGS: Lungs are mildly hypoinflated. No acute abnormality compared to 01/24/2023. No pulmonary mass, airspace disease or pleural effusion. Cardiac silhouette is normal in size. The pulmonary vascular pattern is normal. There is atherosclerotic calcification of the aorta. Vascular stent again noted in medial left upper arm. The visualized bones are intact. XR/XR chest 2V IMPRESSION: No acute cardiopulmonary disease.
--- NOTE | 2023-02-22 13:41 | ECG_ITS ---
Test Reason : DIZZINESS Blood Pressure : / mmHG Vent. Rate : 057 BPM Atrial Rate : 057 BPM P-R Int : 232 ms QRS Dur : 088 ms QT Int : 430 ms P-R-T Axes : 067 015 056 degrees QTc Int : 418 ms Sinus bradycardia with 1st degree A-V block Low voltage QRS Borderline ECG When compared with ECG of 24-JAN-2023 09:03, No significant change was found Referred By: Toya Ng Electronically Signed By:SPENCER MORATAYA
--- NOTE | 2023-02-22 13:42 | ED_ITS ---
HPI - General Adult General Chief complaint: Dyspnea Stated complaint: ORTHOSTATIC DIZZINESS PER EMS Time Seen by Provider: 02/22/23 13:25 Source: patient and EMS Mode of arrival: EMS Limitations: no limitations History of Present Illness HPI narrative: This an 87-year-old female with a history of COPD, hyperlipidemia, hypertension, CKD on hemodialysis (last dialysis Thursday) who presents to the ER with complaints of feeling lightheaded and dizzy which is when she ambulates around her house. This is been going on for 1 week patient denies any associated chest pain, shortness of breath, cough, fever, palpitations, leg swelling or leg pain. Patient denies any falls or injuries. Patient reports she does not drink much water but she has been eating. She reports decreased urine output over the last 2 days. She normally makes urine Related Data Home Medications Medication Instructions Recorded Confirmed carvedilol 25 mg tablet 1 tab PO BID 08/16/21 01/24/23 aspirin 81 mg tablet,delayed 81 mg PO DAILY 01/24/23 01/24/23 release bupropion HCl 150 mg 24 hr tablet, 1 tab PO DAILY 01/24/23 01/24/23 extended release fexofenadine 180 mg tablet 180 mg PO DAILY PRN Allergy 01/24/23 01/24/23 (Anastasiia Allergy) Symptoms lidocaine 5 % topical patch 1 patch topical DAILY 01/24/23 01/24/23 lidocaine-prilocaine 2.5 %-2.5 % See Rx Instructions .Route .COMPLEX 01/24/23 01/24/23 topical cream propranolol 60 mg tablet 1 tab PO BID 01/24/23 01/24/23 rosuvastatin 20 mg tablet 1 tab PO BEDTIME 01/24/23 01/24/23 sevelamer carbonate 800 mg tablet 1 tab PO TID 01/24/23 01/24/23 sodium bicarbonate 325 mg tablet 325 mg PO TID 01/24/23 01/24/23 venlafaxine 150 mg tablet,extended 1 tab PO DAILY 01/24/23 01/24/23 release 24 hr Previous Rx's Medication Instructions Recorded compr.stocking,knee,long,small #2 ea 08/20/21 (T.E.D. K[facility] [place] lorazepam 0.5 mg tablet 0.5 mg PO BEDTIME PRN Anxiety #30 09/22/22 tabs Allergies Allergy/AdvReac Type Severity Reaction Status Date / Time No Known Allergies Allergy Verified 08/16/21 15:17 Review of Systems Review of Systems: Yes all other systems are reviewed and are negative Constitutional: Constitutional: Reports no additional constitutional complaints, Denies body ache(s), Denies chills, Denies fever(s), Denies headache(s) and Denies weakness Eyes: Eyes: Reports no additional eye complaints and Denies change in vision ENT: Reports system reviewed and no additional complaints, except as documented, Reports dizziness, Denies headache(s), Denies nasal congestion, Denies nasal discharge and Denies neck pain Cardiovascular: Cardiovascular: Reports no additional cardiovascular complaints, Denies chest pain, Denies leg edema and Denies dyspnea Respiratory: Respiratory: Reports no additional respiratory complaints, Denies cough and Denies dyspnea Gastrointestinal: Gastrointestinal: Reports no additional gastrointestinal complaints, Denies abdominal pain, Denies diarrhea, Denies nausea and Denies vomiting Genitourinary: Genitourinary: Reports no additional female genitourinary complaints and Denies urinary incontinence Musculoskeletal: Musculoskeletal: Reports no additional musculoskeletal complaints, Denies back pain, Denies arthralgias, Denies joint swelling, Denies neck pain, Denies numbness and Denies tingling Integumentary/Breasts: Skin/Breast: Reports system reviewed and no additional complaints, except as docu and Denies rash Neurologic: Reports system reviewed and no additional complaints, except as documented, Reports dizziness, Denies headache(s), Denies numbness, Denies tin gling and Denies weakness PMF Past Medical History Attestation statement: The following information was validated with the patient. Source: old records reviewed and nursing notes reviewed Medical History Acute hyperkalemia Bacteremia Chronic kidney disease (CKD) COPD (chronic obstructive pulmonary disease) High cholesterol HTN (hypertension) Kidney disease Weakness Social History Social History Household Members: None Housing: Apartment Do you presently have visiting nurse or other home services: Yes Alcohol intake: unknown Patient Tobacco Use Status: Never used Tobacco Smoked in Last 30 Days: No Use of substances other than those prescribed or required for medical reasons: No Advance Directives: No Advance Directives Information Provided: Yes service: No Current occupational status: retired Physical Exam ED Vital Signs: Vital Signs - 24 hr 02/22/23 13:32 02/22/23 13:40 02/22/23 13:51 Temperature 98.0 F Pulse Rate 57 57 56 Respiratory Rate 16 16 Blood Pressure 104/36 L 104/36 L 116/36 L Pulse Oximetry 96 94 Oxygen Delivery Method Room Air Room Air 02/22/23 13:52 02/22/23 13:56 02/22/23 14:10 Temperature Pulse Rate 59 60 60 Respiratory Rate 16 Blood Pressure 88/35 L 100/35 L 100/35 L Pulse Oximetry 96 Oxygen Delivery Method Room Air BMI result Body Mass Index 35.2 Const General: cooperative and no acute distress Orientation/consciousness: oriented to person and oriented to place HENMT Head: Yes normal to inspection and Yes atraumatic Ears: hearing grossly normal bilaterally General nose exam: Normal external nose present Face and sinus: Yes normal facial exam Mouth: mucous membranes dry Eyes General: appearance normal, both eyes and all related structures Pupils: Equal, round and reactive pupils present EOM: EOMs intact bilaterally Neck Other: no midline cervical spinal tenderness Neck: Yes normal visual inspection and Yes no meningeal signs Resp Effort & Inspection: normal respiratory effort and no respiratory distress Auscultation: wheezes expiratory wheezes and throughout and diminished lung sounds diffuse Cardio Rate: regular rate Heart sounds: S1 normal heart sound present and S2 normal heart sound present GI Inspection: Yes normal to inspection Palpation (GI): Soft to palpation, nontender, no guarding and not rigid General: Yes no CVA tenderness Back/Spine/Pelvis Other: No midline thoracic/lumbar spinous tenderness/step-off or deformity Back: no CVA tenderness Skin General skin exam: no rashes or lesions noted Rashes: no rashes Wounds: no wounds Neuro General: oriented to person, oriented to place, tone normal, moves all extremities, no meningeal signs, no focal motor deficits and CN's II-XI intact bilaterally Cranial nerves: Yes CN's II-XII intact bilaterally, Yes Equal, round and reactive pupils present, Yes Bilaterally intact EOM present, Yes Nystagmus not present, Yes Normal facial strength present and Yes Midline tongue present Cognition (Neuro): normal cognition Gait exam (Neuro): Normal gait present Motor exam (neuro): 5/5 motor strength present throughout Sensory Exam: Normal double simultaneous stimulation for sensation Extrem General: Yes normal to inspection and Yes no pedal edema Course Course Course Narrative: Labs show creatinine of 6.6 and BUN of 47. Previous labs on 01/25/2023 show creatinine 3.30 and BUN of 24. Patient is on hemodialysis she tells me she was dialyzed both and Thursday but it is unclear why she had [id number] dialysis. She is unclear who her unitizer is. She has been on dialysis for year. Her orthostatics are quite positive and she is very symptomatic with position change. ? Hypovolemic. Patient clinically appears dry. Patient will be given gentle hydration. Anticipate admission Medications Administered Discontinued Medications Generic Name Dose Route Start Last Admin Trade Name Freq PRN Reason Stop Dose Admin Sodium Chloride 500 mls @ 999 mls/hr 02/22/23 14:24 02/22/23 14:31 Ns IV 02/22/23 14:54 999 mls/hr .Q31M STA Administration Medical Decision Making Medical Decision Making [facility] Narrative: This is an 87-year-old female who has an extensive medical history including being on current hemodialysis who presents with 1 week of feeling lightheaded and dizzy when she walks around with decreased urine output and poor p.o. intake. No focal neurological deficit. Vitals are stable Will check labs, EKG, orthostatic vital signs, UA and COVID screen Differential Diagnosis Differential Diagnoses: The differential diagnosis associated with the presentation includes Dehydration, orthostatic hypotension Admission/Observation Consideration of admission/observation: Escalation of care including admission/observation considered Orthostatic hypotension, acute on chronic renal failure Consult Healthcare Provider Management of the patient was discussed with: Hospitalist Spoke to Dr. Ngo who accepted admission Lab Data [facility] Lab Attestation statement: I reviewed the patient's lab results. 02/22/23 13:45 02/22/23 13:45 Labs: Lab Results 02/22/23 02/22/23 02/22/23 Range/Units 13:45 13:45 13:45 WBC 10.6 (4.8-10.8) X10*3/uL RBC 3.46 L (4.20-5.50) X10*6/uL Hgb 10.8 L (12.0-16.0) g/dl Hct 34.2 L (37.0-47.0) % MCV 98.8 H (80.0-98.0) fL MCH 31.2 (27.0-33.0) pg MCHC 31.6 (31.0-35.0) g/dl RDW 15.1 (11.0-16.0) % Plt Count 199 (160-400) X10*3/uL MPV 9.6 (9.4-12.3) fL Immature Gran % (Auto) 0.4 (0.0-0.4) % Neut % (Auto) 71.1 (45-73) % Lymph % (Auto) 17.9 L (20-40) % Atkinson % (Auto) 6.8 (2-11) % Eos % (Auto) 3.3 (0-4) % Baso % (Auto) 0.5 (0-2) % Lymph # (Auto) 1.9 (1.2-4.9) X10*3/uL Atkinson # (Auto) 0.7 (0.1-1.2) X10*3/uL Eos # (Auto) 0.4 (0.0-0.4) X10*3/uL Baso # (Auto) 0.1 (0.0-0.2) X10*3/uL Abs Immat Gran (auto) 0.04 H (0.00-0.03) X10*3/uL Absolute Neuts (auto) 7.5 (2.0-8.3) x10*3/uL Absolute Nucleated RBC 0.020 H (0.0-0.012) X10*3/uL Nucleated RBC % (auto) 0.2 (0.0-0.2) /100WBC PT 11.3 (10.0-13.1) SEC INR 1.0 (0.9-1.1) Sodium 138 (135-145) mmol/L Potassium 3.5 (3.3-5.1) mmol/L Chloride 93 L (96-108) mmol/L Carbon Dioxide 31 H (22-29) mmol/L Anion Gap 18 (12-20) BUN 47 H (9-16) mg/dL Creatinine 6.16 H* (0.5-1.4) mg/dL Estim Creat Clear Calc 6.8 Estimated GFR 6 Random Glucose 137 H (60-115) mg/dL Calcium 9.3 (8.4-10.2) mg/dL Magnesium 2.5 (1.6-2.6) mg/dL Total Bilirubin 0.5 (0.0-1.0) mg/dL Direct Bilirubin 0.2 (0.0-0.5) mg/dL AST 14 (5-31) U/L ALT 12 (0-31) U/L Alkaline Phosphatase 94 (39-117) U/L Troponin I High Sens (<3.5-17.0) ng/L Total Protein 5.7 L (6.5-8.0) g/dL Albumin 3.3 L (3.5-5.0) g/dL COVID-19 (AMANDA) (Negative) COVID-19 Clin Com 02/22/23 02/22/23 Range/Units 13:45 13:49 WBC (4.8-10.8) X10*3/uL RBC (4.20-5.50) X10*6/uL Hgb (12.0-16.0) g/dl Hct (37.0-47.0) % MCV (80.0-98.0) fL MCH (27.0-33.0) pg MCHC (31.0-35.0) g/dl RDW (11.0-16.0) % Plt Count (160-400) X10*3/uL MPV (9.4-12.3) fL Immature Gran % (Auto) (0.0-0.4) % Neut % (Auto) (45-73) % Lymph % (Auto) (20-40) % Atkinson % (Auto) (2-11) % Eos % (Auto) (0-4) % Baso % (Auto) (0-2) % Lymph # (Auto) (1.2-4.9) X10*3/uL Atkinson # (Auto) (0.1-1.2) X10*3/uL Eos # (Auto) (0.0-0.4) X10*3/uL Baso # (Auto) (0.0-0.2) X10*3/uL Abs Immat Gran (auto) (0.00-0.03) X10*3/uL Absolute Neuts (auto) (2.0-8.3) x10*3/uL Absolute Nucleated RBC (0.0-0.012) X10*3/uL Nucleated RBC % (auto) (0.0-0.2) /100WBC PT (10.0-13.1) SEC INR (0.9-1.1) Sodium (135-145) mmol/L Potassium (3.3-5.1) mmol/L Chloride (96-108) mmol/L Carbon Dioxide (22-29) mmol/L Anion Gap (12-20) BUN (9-16) mg/dL Creatinine (0.5-1.4) mg/dL Estim Creat Clear Calc Estimated GFR Random Glucose (60-115) mg/dL Calcium (8.4-10.2) mg/dL Magnesium (1.6-2.6) mg/dL Total Bilirubin (0.0-1.0) mg/dL Direct Bilirubin (0.0-0.5) mg/dL AST (5-31) U/L ALT (0-31) U/L Alkaline Phosphatase (39-117) U/L Troponin I High Sens 31.7 H (<3.5-17.0) ng/L Total Protein (6.5-8.0) g/dL Albumin (3.5-5.0) g/dL COVID-19 (AMANDA) Negative (Negative) COVID-19 Clin Com See Note Independent Interpretation I performed an independent interpretation of an: EKG Interpretation: I independently reviewed the EKG which shows sinus bradycardia with first-degree AV block, normal QRS, normal QT Discharge Plan Discharge Clinical Impression: Orthostatic hypotension, Acute kidney injury superimposed on chronic kidney disease Patient Disposition: Admitted As Inpatient
[2023-02-22 13:51] LABS: MANUAL DIFF FLAG NO
[2023-02-22 13:53] LABS: Basophils Absolute Auto 0.1 X10*3/uL (0.0-0.2); Basophils Percent Auto 0.5 % (0-2); Eosinophils Absolute Auto 0.4 X10*3/uL (0.0-0.4); Eosinophils Percent Auto 3.3 % (0-4); Hematocrit 34.2 % (37.0-47.0); Hemoglobin 10.8 g/dl (12.0-16.0); Imm Gran Abs Auto 0.04 X10*3/uL (0.00-0.03); Imm Gran Pct Auto 0.4 % (0.0-0.4); Lymphocytes Absolute Auto 1.9 X10*3/uL (1.2-4.9); Lymphocytes Percent Auto 17.9 % (20-40); Mean Corpuscular HGB Conc 31.6 g/dl (31.0-35.0); Mean Corpuscular Hemoglobin 31.2 pg (27.0-33.0); Mean Corpuscular Volume 98.8 fL (80.0-98.0); Mean Platelet Volume 9.6 fL (9.4-12.3); Monocytes Absolute Auto 0.7 X10*3/uL (0.1-1.2); Monocytes Percent Auto 6.8 % (2-11); NRBC Pct Auto 0.2 /100WBC (0.0-0.2); Neutrophils Absolute Auto 7.5 x10*3/uL (2.0-8.3); Neutrophils Percent Auto 71.1 % (45-73); Platelet Count 199 X10*3/uL (160-400); Red Blood Count 3.46 X10*6/uL (4.20-5.50); Red Cell Distribution Width 15.1 % (11.0-16.0); White Blood Count 10.6 X10*3/uL (4.8-10.8)
[2023-02-22 13:57] LABS: Prothrombin Time 11.3 SEC (10.0-13.1)
[2023-02-22 14:11] LABS: COVID-19 Test Negative (Negative); IDNOW Serial# BCCEAD1C
[2023-02-22 14:14] LABS: Troponin-I High Sensitivity 31.7 ng/L (<3.5-17.0)
--- OUTSIDE RECORDS SUMMARY | 2023-02-22 14:16 | XMS_ITS | Continuity of Care Document ---
Author Name Unknown Organization [facility] ter Address [address] [place] [id number]- Care Team Providers Care Medication Technician Name Role Phone Joshua Schaeffer MD Primary Care Physician [place] [facility] [place]12[place]23 - 02/19/[address] [id number]- Attending Physician: Edson Palafox MD Admitting Physician: Edson Palafox MD Allergies, Adverse Reactions, Alerts No Known [...] II opioid drug. Start Date: 07/22/22 Status: Ordered BuPROpion = 150 mg, By Mouth, Daily, 0 Refills, Maintenance, 11/13/21 10:04:00 EST, Partial fill upon patientrequest if the prescription is for a schedule II opioid drug. Start Date: 11/13/21 Status: Ordered hydrALAZINE = 75 mg, By Mouth, 2 times a day, 0 Refills, Maintenance, 11/13/21 10:00:00 EST, Partial fill upon patient request if the prescription is for a schedule II opioid drug. Start Date: 11/13/21 Status: Ordered Loratadine 10 mg, By Mouth, Daily, Refills 0, Maintenance, 11/13/21 10:02:00 EST, Partial fill upon patient request if the prescription is for a schedule II opioid drug. Start Date: 11/13/21 Status: Ordered LORazepam 0.5 mg oral tablet 1 tablet = 0.5 mg, By Mouth, Daily at bedtime, PRN Sleep, 0 Refills, Maintenance, 07/22/22 15:42:00EDT, Partial fill upon patient request if the prescription is for a schedule II opioid drug. Start Date: 07/22/22 Status: Ordered Rosuvastatin = 20 mg, By Mouth, Daily at bedtime, 0 Refills, Maintenance, 11/13/21 10:03:00 EST, Partial fill upon patient request if the prescription is for a schedule II opioid drug. Start Date: 11/13/21 Status: Ordered Sevelamer = 800 mg, By Mouth, 3 times a day, 0 Refills, Maintenance, 07/22/22 15:41:00 EDT, Partial fill uponpatient request if the prescription is for a schedule II opioid drug. Start Date: 07/22/22 Status: Ordered sodium bicarbonate 325 mg oral tablet 1 tablet = 325 mg, By Mouth, 3 times a day, # 30 tablet, 0 Refills, Maintenance, 11/13/21 10:03:00 EST, Tablet, Partial fill upon patient request if the prescription is for a schedule II opioid drug. Start Date: 11/13/21 Status: Ordered venlafaxine 150 mg oral capsule, extended release 150 mg, 1, capsule, By Mouth, Daily, Refills 0, Maintenance, 04/29/18 14:53:15 EDT Start Date: 04/29/18 Status: Ordered Problem List Condition Confirmation Course Effective Dates Status [facility] Anxiety Confirmed Active Chronic disease Confirmed Active Depression Confirmed Active Obese class I Confirmed Active Social History Social History Type Response Smoking Status Never smoker entered on: 04/29/18 Sex Implantable Device List Procedure Provider Procedure Date Device Type Site Creation Arteriovenous Graft Upper Extre Ten Barreto MD 11/15/21 Unknown Arm Le ft Device Identifier Serial Number Lot or Batch Number Manufacturing Date Expiration Date Distinct Identification Code MRI Safety Implantable Status Assigning Authority Unknown Unknown [id number] Unknown 09/19/25 Unknown Unknown Active Unknown Patient Care team information Care Team Personnel Name: Joshua Schaeffer MD Position: [facility] Physician (General Medicine) Member Role: PCP Address: Address: [address] [place] [id number]- [place] Name: Ai Rodriguez Position: [facility] Outreach Member Role: [employer] Consult[employer] Physician Care Team Related Persons Name: DEYANIRA MARTINEZ Address: home [address] [place] [address] Name: BARBARA MARTINEZ Address: home [address] [place] [address]
[2023-02-22 14:24] LABS: Alanine Aminotransferase 12 U/L (0-31); Albumin Level 3.3 g/dL (3.5-5.0); Alkaline Phosphatase 94 U/L (39-117); Anion Gap 18 (12-20); Aspartate Amino Transferase 14 U/L (5-31); Bilirubin Direct 0.2 mg/dL (0.0-0.5); Bilirubin Total 0.5 mg/dL (0.0-1.0); Blood Urea Nitrogen 47 mg/dL (9-16); Calcium 9.3 mg/dL (8.4-10.2); Carbon Dioxide 31 mmol/L (22-29); Chloride 93 mmol/L (96-108); Creatinine Clr Calc Pharmacy 6.8; Estimated Glomerular Filt Rate 6; Glucose Random 137 mg/dL (60-115); Magnesium 2.5 mg/dL (1.6-2.6); Potassium 3.5 mmol/L (3.3-5.1); Sodium 138 mmol/L (135-145); Total Protein 5.7 g/dL (6.5-8.0)
[2023-02-22] MEDS: 0.9 % Sodium Chloride 500 ML 999 ML IV (14:31)
--- NOTE | 2023-02-22 15:58 | P.HPHOSP_ITS ---
History of Present Illness Date of Service: 02/22/23 Chief Complaint: Dizziness, lightheadedness An 87 years old lady with PMH of COPD, HTN, HLD, ESRD on HD (MWF) who presents to the hospital with lightheadedness and dizziness. reports that she had 2 sessions Alley and Fri but not sure why and not the best historian. report that since then she has been unsteady and dizzy in home. denies any associated chest pain, shortness of breath, cough, fever, palpitations, falls or injuries. She had similar presentations before. BP was found to be significantly low. Started on IVF and will be admitted for further management. Review of Systems Review of Systems: No fever, chills but feels weakness and dizziness No chest pain, palpitation No shortness of breath or coughing No abdominal pain, nausea or vomiting No urinary symptoms No any rash or wounds PMFSH Medical History Acute hyperkalemia Bacteremia Chronic kidney disease (CKD) COPD (chronic obstructive pulmonary disease) High cholesterol HTN (hypertension) Kidney disease Weakness Social History Household Members: None Housing: House Do you presently have visiting nurse or other home services: Yes Alcohol intake: unknown Patient Tobacco Use Status: Never used Tobacco Smoked in Last 30 Days: No Use of substances other than those prescribed or required for medical reasons: No Have you been hit, kicked, punched, or otherwise hurt by someone within the past year? If so, by whom?: No Do you feel safe in your current relationship?: No Current Relationship Is there a partner from a previous relationship who is making you feel unsafe now?: No Are you made to feel afraid or neglected: No Spiritual Healthcare Practices: jehovah's witness Advance Directives: No Advance Directives Information Provided: Yes Advance Directives on File: No Do you have thoughts of harming others: None Do you have a plan to hurt others: No Plan Recently lost weight without trying: Unsure Patient : No service: No Current occupational status: retired Meds Allergies Allergy/AdvReac Type Severity Reaction Status Date / Time No Known Allergies Allergy Verified 08/16/21 15:17 Active Medications: Current Medications Sodium Chloride (Ns) 1,000 mls @ 999 mls/hr IV .Q1H1M JORDY Stop: 02/22/23 17:00 Albumin Human (Kedbumin 25 %) 100 mls @ 100 mls/hr IV Q1H JORDY Stop: 02/22/23 17:59 Pharmacy Consult (Consult Rx Perform Med Rec) 1 each MISCELLANE ONCE PRN PRN Reason: Consult order Home Medications Medication Instructions Recorded Confirmed Last Taken Type carvedilol 25 mg tablet 1 tab PO BID 08/16/21 02/22/23 02/22/23 09:00 History aspirin 81 mg tablet,delayed 81 mg PO DAILY 01/24/23 02/22/23 02/22/23 09:00 History release bupropion HCl 150 mg 24 hr tablet, 1 tab PO DAILY 01/24/23 02/22/23 02/22/23 09:00 History extended release fexofenadine 180 mg tablet 180 mg PO DAILY PRN Allergy 01/24/23 02/22/23 Unknown History (Anastasiia Allergy) Symptoms lidocaine 5 % topical patch 1 patch topical DAILY 01/24/23 02/22/23 02/22/23 09:00 History lidocaine-prilocaine 2.5 %-2.5 % See Rx Instructions .Route .COMPLEX 01/24/23 02/22/23 01/22/23 History topical cream propranolol 60 mg tablet 1 tab PO BID 01/24/23 02/22/23 02/22/23 09:00 History rosuvastatin 20 mg tablet 1 tab PO BEDTIME 01/24/23 02/22/23 02/21/23 History sevelamer carbonate 800 mg tablet 1 tab PO TID 01/24/23 02/22/23 02/22/23 09:00 History sodium bicarbonate 325 mg tablet 325 mg PO TID 01/24/23 02/22/23 02/22/23 09:00 History venlafaxine 150 mg tablet,extended 1 tab PO DAILY 01/24/23 02/22/23 02/22/23 09:00 History release 24 hr Physical Exam Vital Signs and Narrative: Vital Signs: Last Vital Signs Temp 98.0 F 02/22/23 13:40 Pulse 60 02/22/23 14:10 Resp 16 02/22/23 14:10 BP 100/35 L 02/22/23 14:10 Pulse Ox 96 02/22/23 14:10 O2 Del Method Room Air 02/22/23 14:10 BMI result Body Mass Index 35.2 Const: Other: Constitutional : Awake, interactive, obese, not in distress Neck : Normal inspection, Supple Cardiovascular : RRR, no JVP, no lower extremity edema Respiratory : good bilateral air entry,? no crackles, no wheezes or rhonchi Gastrointestinal:? soft, lax, Normal bowel sounds, Non tender Skin : Warm, Dry Neurological : Alert & oriented x3, No focal deficit Results Labs 02/22/23 13:45 02/22/23 13:45 Labs: Laboratory Results - last 24 hr 02/22/23 02/22/23 02/22/23 13:45 13:45 13:45 MCV 98.8 H MCH 31.2 MCHC 31.6 RDW 15.1 Plt Count 199 MPV 9.6 Immature Gran % (Auto) 0.4 Neut % (Auto) 71.1 Lymph % (Auto) 17.9 L Sharkey % (Auto) 6.8 Eos % (Auto) 3.3 Baso % (Auto) 0.5 Lymph # (Auto) 1.9 Sharkey # (Auto) 0.7 Eos # (Auto) 0.4 Baso # (Auto) 0.1 Abs Immat Gran (auto) 0.04 H Absolute Neuts (auto) 7.5 Absolute Nucleated RBC 0.020 H Nucleated RBC % (auto) 0.2 PT 11.3 INR 1.0 Anion Gap 18 Estim Creat Clear Calc 6.8 Estimated GFR 6 Random Glucose 137 H Calcium 9.3 Magnesium 2.5 Total Bilirubin 0.5 Direct Bilirubin 0.2 AST 14 ALT 12 Alkaline Phosphatase 94 Troponin I High Sens Total Protein 5.7 L Albumin 3.3 L COVID-19 (AMANDA) COVID-19 Clin Com 02/22/23 02/22/23 13:45 13:49 MCV MCH MCHC RDW Plt Count MPV Immature Gran % (Auto) Neut % (Auto) Lymph % (Auto) Sharkey % (Auto) Eos % (Auto) Baso % (Auto) Lymph # (Auto) Sharkey # (Auto) Eos # (Auto) Baso # (Auto) Abs Immat Gran (auto) Absolute Neuts (auto) Absolute Nucleated RBC Nucleated RBC % (auto) PT INR Anion Gap Estim Creat Clear Calc Estimated GFR Random Glucose Calcium Magnesium Total Bilirubin Direct Bilirubin AST ALT Alkaline Phosphatase Troponin I High Sens 31.7 H Total Protein Albumin COVID-19 (AMANDA) Negative COVID-19 Clin Com See Note Imaging Radiologist's Impressions: Impressions Chest X-Ray 02/22/23 14:05 IMPRESSION: No acute cardiopulmonary disease. Assessment and Plan (1) Orthostatic hypotension: Status: Acute (2) ESRD (end stage renal disease) on dialysis: Status: Acute Plan An 87 years old lady with PMH of COPD, HTN, HLD, ESRD on HD (MWF) who presents to the hospital with lightheadedness and dizziness. Postural hypotension likely 2/2 dehydration from over dialysis? No clear source of infection identified Give 2 L of fluids Hold BP meds To do ultrafiltration PT eval ESRD on HD Nephrology consult Dialysis tomorrow Mood disorder Continue bupropion, venlafaxine HTN Hold home meds HLD Continue statin Full Code DVT Prophylaxis: Heparin Patient will need 2 overnight hospital stay for postural hypotension and need of dialysis Time Spent With Patient Time: Total time managing care of this patient today ____ minutes. Quality Stroke Does the patient have a stroke diagnosis?: No VTE Prior VTE?: No VTE Risk Level:: Medical - moderate - high VTE Device Contraindication: Treatment Not Indicated VTE Drug Contraindication: N/A - Med Ordered
--- NOTE | 2023-02-22 16:07 | MHC.EDTECH ---
this pct assumed care of pt at 1500 ,vitals sign taken ,bladder scan done ,rn aware of result ,pt wanted to keep her own night gown on ,refused hospital attire .
--- NOTE | 2023-02-22 16:31 | PHA.MEDREC ---
Pharmacy Consult ? Medication Reconciliation Pharmacy has completed the medication reconciliation. Spoke to patient to confirm medications. Patient is poor historian of medications, but was discharged recently on 01/28/23. Patient reported no medication changes from last discharge except a possible dose decrease on her carvedilol, however she can not state what was the old dosage and what is the new dosage. No other medication changes reported.
[2023-02-22] MEDS: 0.9 % Sodium Chloride 1,000 ML 999 ML IV (17:41)
[2023-02-22] MEDS: Heparin Sodium,Porcine 5,000 UNIT/ML VIAL 5000 UNIT SUBCUT (17:45)
[2023-02-22] MEDS: Albumin Human 25 % 100 ML IV ×2 (17:45→18:46)
[2023-02-22] MEDS: Sodium Bicarbonate 650 MG TABLET 325 MG PO (20:01)
[2023-02-22] MEDS: Atorvastatin Calcium 80 MG TABLET PO (20:02)
[2023-02-22] MEDS: Venlafaxine HCl ER 150 MG CAP.ER.24H PO (20:02)
[2023-02-22] MEDS: Sevelamer Carbonate Tablet 800 MG TABLET PO (20:02)
[2023-02-23 04:36] VITALS: BP 152/61; PULSE 65; RESP 16; TEMP 36.6; O2SAT 96
[2023-02-23] MEDS: Heparin Sodium,Porcine 5,000 UNIT/ML VIAL 5000 UNIT SUBCUT ×2 (05:50→17:11)
[2023-02-23 06:49] LABS: Appearance Urine Cloudy; Color Urine Yellow; Glucose Urine UA Negative (Negative); Leukocyte Esterase Urine Small (1+) (Negative); Nitrite Urine Negative (Negative); PH 5.5 (5.0-9.0); Specific Gravity - Urine 1.015 (1.005-1.025); UMIC TRIGGER UACC YES; Urine Blood Negative (Negative); Urine Ketones Negative (Negative); Urine Protein 30 (1+) mg/dL (Neg-Trace)
[2023-02-23 06:52] LABS: Bacteria Urine Trace (None Seen); Hyaline Casts Urine 0-2 /LPF (0-2); RBC Urine 0-2 /HPF (0-2); UACC Culture Trigger YES
[2023-02-23 07:33] LABS: Anion Gap 13 (12-20); Blood Urea Nitrogen 49 mg/dL (9-16); Calcium 9.1 mg/dL (8.4-10.2); Carbon Dioxide 29 mmol/L (22-29); Chloride 99 mmol/L (96-108); Glucose Random 94 mg/dL (60-115); Potassium 3.4 mmol/L (3.3-5.1); Sodium 138 mmol/L (135-145)
[2023-02-23 07:36] LABS: Creatinine Clr Calc Pharmacy 6.8; Estimated Glomerular Filt Rate 6
[2023-02-23] MEDS: Sevelamer Carbonate Tablet 800 MG TABLET PO ×3 (07:38→20:42)
[2023-02-23] MEDS: buPROPion HCl XL 150 MG TAB.ER.24H PO (07:38)
[2023-02-23] MEDS: Aspirin Enteric Coated 81 MG TABLET.DR PO (07:38)
[2023-02-23] MEDS: Acetaminophen 325 MG TABLET 650 MG PO ×2 (07:39→17:19)
[2023-02-23] MEDS: Venlafaxine HCl ER 150 MG CAP.ER.24H PO (07:39)
[2023-02-23] MEDS: Lidocaine 4 % Patch ADH..PATCH 1 PATCH TRANSDERMA (07:39)
[2023-02-23] MEDS: Sodium Bicarbonate 650 MG TABLET 325 MG PO ×3 (07:39→20:46)
[2023-02-23 08:00] VITALS: BP 114/55; PULSE 62; RESP 16; TEMP 36.4; O2SAT 98
--- NOTE | 2023-02-23 08:37 | PC.NURSE ---
nurse to nurse report to Emery
--- NOTE | 2023-02-23 09:51 | MHC.CM.PN ---
PATIENT IS IN FROM HOME. RECENTLY (02/20/23) DC FROM [facility] AND DOES NOT WISH TO RETURN TO A REHAB FACILITY. HD IN [place] AND TRANSPORTATION IS ARRANGED FOR THIS. A VNA WAS TO START IN THE HOME BUT SHE DOES NOT RECALL THE NAME OF AGENCY. AMBULATES WITH A WALKER. PRIMARY HCP IS (2020) AND BARBARA IS SECONDARY PATIENT REPORTS AWAITING HEARING AID RX FOR APPROXIMATELY 3 MONTHS. IMM 02/23 IN CHART PATIENT WOULD LIKE TO RETURN HOME WITH SERVICES AT [place]
[2023-02-23] MEDS: traMADoL HCL 50 MG TABLET 25 MG PO ×3 (10:33→20:45)
--- NOTE | 2023-02-23 10:51 | PM.CNNEP ---
History of Present Illness Reason for Consult Consult date: 02/23/23 Reason for consult: ESRD dialysis Chief Complaint Chief complaint: Postural hypotension, needs dialysis History of Present Illness Narrative: 87 years old lady with PMH of COPD, HTN, HLD, ESRD on HD (MWF) who presents to the hospital with lightheadedness and dizziness. reports that she had 2 sessions Alley and Fri but not sure why and not the best historian. report that since then she has been unsteady and dizzy in home. denies any associated chest pain, shortness of breath, cough, fever, palpitations, falls or injuries. she was previously getting dialysis at [facility]. However she she was recently being treated at [facility]. She no longer wishes to go back to [place] dialysis and wants to switch over to dialysis center [facility] due to proximity. Review of Systems Review of Systems No fever, chills but feels weakness and dizziness No chest pain, palpitation No shortness of breath or coughing No abdominal pain, nausea or vomiting No urinary symptoms No any rash or wounds PMFSH Past Medical History Medical History Acute hyperkalemia Bacteremia Chronic kidney disease (CKD) COPD (chronic obstructive pulmonary disease) High cholesterol HTN (hypertension) Kidney disease Weakness Social History Social History Household Members: None Housing: House Do you presently have visiting nurse or other home services: Yes Alcohol intake: unknown Patient Tobacco Use Status: Never used Tobacco Smoked in Last 30 Days: No Use of substances other than those prescribed or required for medical reasons: No Have you been hit, kicked, punched, or otherwise hurt by someone within the past year? If so, by whom?: No Do you feel safe in your current relationship?: No Current Relationship Is there a partner from a previous relationship who is making you feel unsafe now?: No Are you made to feel afraid or neglected: No Spiritual Healthcare Practices: druze Advance Directives: No Advance Directives Information Provided: Yes Advance Directives on File: No Do you have thoughts of harming others: None Do you have a plan to hurt others: No Plan Recently lost weight without trying: Unsure Patient : No service: No Current occupational status: retired Meds Allergies Allergy/AdvReac Type Severity Reaction Status Date / Time No Known Allergies Allergy Verified 08/16/21 15:17 Active Medications: Current Medications Acetaminophen (Acetaminophen 325 Mg Tablet) 650 mg PO Q6H PRN PRN Reason: Pain, Mild (Pain Scale 1-3) Last Admin: 02/23/23 07:39 Dose: 650 mg Aspirin (Aspirin Enteric Coated 81 Mg Tablet.Dr) 81 mg PO DAILY [facility] Last Admin: 02/23/23 07:38 Dose: 81 mg Atorvastatin Calcium (Atorvastatin Calcium 80 Mg Tablet) 80 mg PO BEDTIME [facility] Last Admin: 02/22/23 20:02 Dose: 80 mg Bupropion HCl (Bupropion Hcl Xl 150 Mg Tab.Er.24h) 150 mg PO DAILY [facility] Last Admin: 02/23/23 07:38 Dose: 150 mg Heparin Sodium (Porcine) (Heparin Sodium,Porcine 5,000 Unit/Ml Vial) 5,000 unit SUBCUT Q12H [facility] Last Admin: 02/23/23 05:50 Dose: 5,000 unit Lidocaine (Lidocaine 4 % Patch Adh..Patch) 1 patch TRANSDERMA DAILY [facility] Last Admin: 02/23/23 07:39 Dose: 1 patch Lorazepam (Lorazepam 0.5 Mg Tablet) 0.5 mg PO BEDTIME PRN PRN Reason: Anxiety Ondansetron HCl (Ondansetron Hcl 4 Mg/2 Ml Vial) 4 mg IVPUSH Q8H PRN PRN Reason: Nausea and Vomiting Pharmacy Consult (Consult Rx Perform Med Rec) 1 each MISCELLANE ONCE PRN PRN Reason: Consult order Sevelamer Carbonate (Sevelamer Carbonate Tablet 800 Mg Tablet) 800 mg PO TID [facility] Last Admin: 02/23/23 07:38 Dose: 800 mg Sodium Bicarbonate (Sodium Bicarbonate 650 Mg Tablet) 325 mg PO TID [facility] Last Admin: 02/23/23 07:39 Dose: 325 mg Sodium Chloride (0.9 % Sodium Chloride Flush 3 Ml Syringe) 3 ml IVFLUSH QSHIFT [facility] Last Admin: 02/23/23 07:19 Dose: Not Given Tramadol HCl (Tramadol Hcl 50 Mg Tablet) 25 mg PO Q6H PRN PRN Reason: Pain, Severe (Pain Scale 7-10) Last Admin: 02/23/23 10:33 Dose: 25 mg Venlafaxine HCl (Venlafaxine Hcl Er 150 Mg Cap.Er.24h) 150 mg PO DAILY [facility] Last Admin: 02/23/23 07:39 Dose: 150 mg Home Medications Medication Instructions Recorded Confirmed Last Taken Type carvedilol 25 mg tablet 1 tab PO BID 08/16/21 02/22/23 02/22/23 09:00 History aspirin 81 mg tablet,delayed 81 mg PO DAILY 01/24/23 02/22/23 02/22/23 09:00 History release bupropion HCl 150 mg 24 hr tablet, 1 tab PO DAILY 01/24/23 02/22/23 02/22/23 09:00 History extended release fexofenadine 180 mg tablet 180 mg PO DAILY PRN Allergy 01/24/23 02/22/23 Unknown History (Anastasiia Allergy) Symptoms lidocaine 5 % topical patch 1 patch topical DAILY 01/24/23 02/22/23 02/22/23 09:00 History lidocaine-prilocaine 2.5 %-2.5 % See Rx Instructions .Route .COMPLEX 01/24/23 02/22/23 01/22/23 History topical cream propranolol 60 mg tablet 1 tab PO BID 01/24/23 02/22/23 02/22/23 09:00 History rosuvastatin 20 mg tablet 1 tab PO BEDTIME 01/24/23 02/22/23 02/21/23 History sevelamer carbonate 800 mg tablet 1 tab PO TID 01/24/23 02/22/23 02/22/23 09:00 History sodium bicarbonate 325 mg tablet 325 mg PO TID 01/24/23 02/22/23 02/22/23 09:00 History venlafaxine 150 mg tablet,extended 1 tab PO DAILY 01/24/23 02/22/23 02/22/23 09:00 History release 24 hr Physical Exam Vital Signs: Last Vital Signs Temp 97.6 F 02/23/23 08:00 Pulse 62 02/23/23 08:00 Resp 16 02/23/23 08:00 BP 114/55 L 02/23/23 08:00 Pulse Ox 98 02/23/23 08:00 O2 Del Method Room Air 02/23/23 08:00 BMI result Body Mass Index 35.2 Const Other: Constitutional : Awake, interactive, obese, not in distress Neck : Normal inspection, Supple Cardiovascular : RRR, no JVP, no lower extremity edema Respiratory : good bilateral air entry,? no crackles, no wheezes or rhonchi Gastrointestinal:? soft, lax, Normal bowel sounds, Non tender Skin : Warm, Dry Neurological : Alert & oriented x3, No focal deficit General: cooperative and no acute distress Orientation/consciousness: oriented to person and oriented to place Neuro General: oriented to person and oriented to place Results Lab Results 02/22/23 13:45 02/23/23 06:40 Lab results: Chemistry 02/22/23 02/23/23 13:45 06:40 Sodium 138 138 Potassium 3.5 3.4 Carbon Dioxide 31 H 29 BUN 47 H 49 H Creatinine 6.16 H* 6.18 H* Calcium 9.3 9.1 Hematology 02/22/23 13:45 WBC 10.6 Hgb 10.8 L Plt Count 199 Urinalysis 02/23/23 06:40 Urine Color Yellow Urine Appearance Cloudy Urine pH 5.5 Ur Specific [place] 1.015 Urine Protein 30 (1+) H Urine Glucose (UA) Negative Urine Ketones Negative Urine Blood Negative Urine Nitrite Negative Ur Leukocyte Esterase Small (1+) H Urine RBC 0-2 Urine WBC 11-20 H Ur Squamous Epith Cells 3-5 Hyaline Casts 0-2 Assessment and Plan (1) ESRD (end stage renal disease) on dialysis: Status: Acute Plan 87-year-old woman with ESRD who was due for dialysis today. Overall she has no signs or symptoms of uremia. Flu status she appears dry. Potassium is within normal range. Plan dialysis today and keep her on a Thursday schedule. at her request I will arrange for hemodialysis at dialysis center for shortness 2 sets. Time Spent With Patient Time: Total time managing care of this patient today ____ minutes. Procedures Date of Service Date of Service: 02/23/23
[2023-02-23] MEDS: 0.9 % Sodium Chloride 1,000 ML 999 ML IV (11:53)
--- NOTE | 2023-02-23 11:55 | HO.PM.IMPN ---
Subjective Subjective Date of Service: 02/23/23 Interval History: Feels better made small amount of urine still feels lightheaded upon sitting blood pressure soft no other overnight events Review of Systems No fever, chills but feels weakness and dizziness No chest pain, palpitation No shortness of breath or coughing No abdominal pain, nausea or vomiting No urinary symptoms No any rash or wounds Physical Exam Vital Signs: Vital Signs: Last Vital Signs Temp 97.6 F 02/23/23 08:00 Pulse 62 02/23/23 08:00 Resp 16 02/23/23 08:00 BP 114/55 L 02/23/23 08:00 Pulse Ox 98 02/23/23 08:00 O2 Del Method Room Air 02/23/23 08:00 BMI result Body Mass Index 35.2 Const: Other: Constitutional : Awake, interactive, obese, not in distress Neck : Normal inspection, Supple Cardiovascular : RRR, no JVP, no lower extremity edema Respiratory : good bilateral air entry,? no crackles, no wheezes or rhonchi Gastrointestinal:? soft, lax, Normal bowel sounds, Non tender Skin : Warm, Dry Neurological : Alert & oriented x3, No focal deficit Objective Data Active Medications Acetaminophen (Acetaminophen 325 Mg Tablet) 650 mg PO Q6H PRN PRN Reason: Pain, Mild (Pain Scale 1-3) Last Admin: 02/23/23 07:39 Dose: 650 mg Documented By: YRIS Aspirin (Aspirin Enteric Coated 81 Mg Tablet.) 81 mg PO DAILY [facility] Last Admin: 02/23/23 07:38 Dose: 81 mg Documented By: YRIS Atorvastatin Calcium (Atorvastatin Calcium 80 Mg Tablet) 80 mg PO BEDTIME [facility] Last Admin: 02/22/23 20:02 Dose: 80 mg Documented By: ASHISH Bupropion HCl (Bupropion Hcl Xl 150 Mg Tab.Er.24h) 150 mg PO DAILY [facility] Last Admin: 02/23/23 07:38 Dose: 150 mg Documented By: YRIS Heparin Sodium (Porcine) (Heparin Sodium,Porcine 5,000 Unit/Ml Vial) 5,000 unit SUBCUT Q12H [facility] Last Admin: 02/23/23 05:50 Dose: 5,000 unit Documented By: ASHISH Sodium Chloride (Ns) 1,000 mls @ 999 mls/hr IV .Q1H1M [facility] Stop: 02/23/23 13:00 Last Admin: 02/23/23 11:53 Dose: 999 mls/hr Documented By: MERCEDES Lidocaine (Lidocaine 4 % Patch Adh..Patch) 1 patch TRANSDERMA DAILY [facility] Last Admin: 02/23/23 07:39 Dose: 1 patch Documented By: YRIS Lorazepam (Lorazepam 0.5 Mg Tablet) 0.5 mg PO BEDTIME PRN PRN Reason: Anxiety Ondansetron HCl (Ondansetron Hcl 4 Mg/2 Ml Vial) 4 mg IVPUSH Q8H PRN PRN Reason: Nausea and Vomiting Pharmacy Consult (Consult Rx Perform Med Rec) 1 each MISCELLANE ONCE PRN PRN Reason: Consult order Sevelamer Carbonate (Sevelamer Carbonate Tablet 800 Mg Tablet) 800 mg PO TID [facility] Last Admin: 02/23/23 07:38 Dose: 800 mg Documented By: YRIS Sodium Bicarbonate (Sodium Bicarbonate 650 Mg Tablet) 325 mg PO TID [facility] Last Admin: 02/23/23 07:39 Dose: 325 mg Documented By: YRIS Sodium Chloride (0.9 % Sodium Chloride Flush 3 Ml Syringe) 3 ml IVFLUSH QSHIFT [facility] Last Admin: 02/23/23 07:19 Dose: Not Given Documented By: MERCEDES Non-Admin Reason: See Note Tramadol HCl (Tramadol Hcl 50 Mg Tablet) 25 mg PO Q6H PRN PRN Reason: Pain, Severe (Pain Scale 7-10) Last Admin: 02/23/23 10:33 Dose: 25 mg Documented By: MERCEDES Venlafaxine HCl (Venlafaxine Hcl Er 150 Mg Cap.Er.24h) 150 mg PO DAILY [facility] Last Admin: 02/23/23 07:39 Dose: 150 mg Documented By: YRIS Labs 02/22/23 13:45 02/23/23 06:40 Labs: Laboratory Results - last 24 hr 02/22/23 02/22/23 02/22/23 13:45 13:45 13:45 MCV 98.8 H MCH 31.2 MCHC 31.6 RDW 15.1 Plt Count 199 MPV 9.6 Immature Gran % (Auto) 0.4 Neut % (Auto) 71.1 Lymph % (Auto) 17.9 L Rains % (Auto) 6.8 Eos % (Auto) 3.3 Baso % (Auto) 0.5 Lymph # (Auto) 1.9 Rains # (Auto) 0.7 Eos # (Auto) 0.4 Baso # (Auto) 0.1 Abs Immat Gran (auto) 0.04 H Absolute Neuts (auto) 7.5 Absolute Nucleated RBC 0.020 H Nucleated RBC % (auto) 0.2 PT 11.3 INR 1.0 Anion Gap 18 Estim Creat Clear Calc 6.8 Estimated GFR 6 Random Glucose 137 H Calcium 9.3 Magnesium 2.5 Total Bilirubin 0.5 Direct Bilirubin 0.2 AST 14 ALT 12 Alkaline Phosphatase 94 Troponin I High Sens Total Protein 5.7 L Albumin 3.3 L Urine Color Urine Appearance Urine pH Ur Specific [place] Urine Protein Urine Glucose (UA) Urine Ketones Urine Blood Urine Nitrite Ur Leukocyte Esterase Urine RBC Urine WBC Ur Squamous Epith Cells Urine Bacteria Hyaline Casts COVID-19 (AMANDA) COVID-Jule Game 02/22/23 02/22/23 02/23/23 13:45 13:49 06:40 MCV MCH MCHC RDW Plt Count MPV Immature Gran % (Auto) Neut % (Auto) Lymph % (Auto) Rains % (Auto) Eos % (Auto) Baso % (Auto) Lymph # (Auto) Rains # (Auto) Eos # (Auto) Baso # (Auto) Abs Immat Gran (auto) Absolute Neuts (auto) Absolute Nucleated RBC Nucleated RBC % (auto) PT INR Anion Gap 13 Estim Creat Clear Calc 6.8 Estimated GFR 6 Random Glucose 94 Calcium 9.1 Magnesium Total Bilirubin Direct Bilirubin AST ALT Alkaline Phosphatase Troponin I High Sens 31.7 H Total Protein Albumin Urine Color Urine Appearance Urine pH Ur Specific [place] Urine Protein Urine Glucose (UA) Urine Ketones Urine Blood Urine Nitrite Ur Leukocyte Esterase Urine RBC Urine WBC Ur Squamous Epith Cells Urine Bacteria Hyaline Casts COVID-19 (AMANDA) Negative COVID-Reddit Com See Note 02/23/23 06:40 MCV MCH MCHC RDW Plt Count MPV Immature Gran % (Auto) Neut % (Auto) Lymph % (Auto) Rains % (Auto) Eos % (Auto) Baso % (Auto) Lymph # (Auto) Rains # (Auto) Eos # (Auto) Baso # (Auto) Abs Immat Gran (auto) Absolute Neuts (auto) Absolute Nucleated RBC Nucleated RBC % (auto) PT INR Anion Gap Estim Creat Clear Calc Estimated GFR Random Glucose Calcium Magnesium Total Bilirubin Direct Bilirubin AST ALT Alkaline Phosphatase Troponin I High Sens Total Protein Albumin Urine Color Yellow Urine Appearance Cloudy Urine pH 5.5 Ur Specific [place] 1.015 Urine Protein 30 (1+) H Urine Glucose (UA) Negative Urine Ketones Negative Urine Blood Negative Urine Nitrite Negative Ur Leukocyte Esterase Small (1+) H Urine RBC 0-2 Urine WBC 11-20 H Ur Squamous Epith Cells 3-5 Urine Bacteria Trace Hyaline Casts 0-2 COVID-19 (AMANDA) COVID-19 Clin Com Assessment and Plan (1) Orthostatic hypotension: Status: Acute (2) ESRD (end stage renal disease) on dialysis: Status: Acute Plan An 87 years old lady with PMH of COPD, HTN, HLD, ESRD on HD (MWF) who presents to the hospital with lightheadedness and dizziness. Postural hypotension likely 2/2 dehydration from over dialysis No clear source of infection identified Give another 1L NS Hold BP meds To do HD without removing fluids PT eval ESRD on HD Nephrology consult Dialysis today Mood disorder Continue bupropion, venlafaxine HTN Hold home meds HLD Continue statin Full Code DVT Prophylaxis: Heparin Patient will need overnight hospital stay for postural hypotension and need of dialysis Time Spent With Patient Time: Total time managing care of this patient today ____ minutes. Quality Stroke Does the patient have a stroke diagnosis?: No VTE Prior VTE?: No VTE Risk Level:: Medical - moderate - high VTE Device Contraindication: Treatment Not Indicated VTE Drug Contraindication: N/A - Med Ordered
--- NOTE | 2023-02-23 14:18 | MHC.CLN ---
NUTRITION DIET MODIFIED PER DIALYSIS PARAMETERS. DIET=2 GRAM SODIUM, LOW POTASSIUM, LOW PHOSPHOROUS.
[2023-02-23] MEDS: Midodrine HCl 5 MG TABLET PO ×2 (17:10→20:42)
[2023-02-23 17:22] VITALS: BP 129/63; PULSE 56; RESP 18; TEMP 36.4; O2SAT 99
[2023-02-23 19:42] VITALS: BP 133/59; PULSE 58; RESP 18; TEMP 36.3; O2SAT 100
[2023-02-23] MEDS: Atorvastatin Calcium 80 MG TABLET PO (20:42)
[2023-02-24] VITALS (10 sets, daily range): BP systolic 121–158; BP diastolic 52–97; PULSE 58–65; RESP 16–17; TEMP 36.1–36.7; O2SAT 96–100
[2023-02-24] MEDS: traMADoL HCL 50 MG TABLET 25 MG PO ×2 (04:20→20:11)
[2023-02-24] MEDS: Heparin Sodium,Porcine 5,000 UNIT/ML VIAL 5000 UNIT SUBCUT ×2 (05:27→17:19)
--- NOTE | 2023-02-24 08:39 | MHC.CM.PN ---
PER CONVERSATION WITH PATIENT, REFERRAL TO [facility]. PATIENT CAN DC TODAY IF OFFERED A BED
--- NOTE | 2023-02-24 09:10 | PM.PNNEP ---
Subjective Subjective Date of Service: 02/24/23 Interval history: Had dialysis yesterday. Still somewhat confused. She thinks she had dialysis on Thursday. Physical Exam Vital Signs: Vital Signs: Last Vital Signs Temp 97.5 F 02/24/23 08:00 Pulse 62 02/24/23 08:10 Resp 17 02/24/23 08:00 BP 154/63 H 02/24/23 08:10 Pulse Ox 99 02/24/23 08:00 O2 Del Method Room Air 02/24/23 08:00 BMI result Body Mass Index 35.2 Const: Other: Constitutional : Awake, interactive, obese, not in distress Neck : Normal inspection, Supple Cardiovascular : RRR, no JVP, no lower extremity edema Respiratory : good bilateral air entry,? no crackles, no wheezes or rhonchi Gastrointestinal:? soft, lax, Normal bowel sounds, Non tender Skin : Warm, Dry Neurological : Alert & oriented x3, No focal deficit General: cooperative and no acute distress Orientation/consciousness: oriented to person and oriented to place Neuro: General: oriented to person and oriented to place Objective Data Labs 02/22/23 13:45 02/23/23 06:40 Procedures Date of Service Date of Service: 02/24/23 Assessment & Plan Assessment and plan (1) ESRD (end stage renal disease) on dialysis: Status: Acute Plan 87-year-old woman with ESRD who was due for dialysis today. Overall she has no signs or symptoms of uremia. Flu status she appears dry. Potassium is within normal range. Plan dialysis on a Thursday schedule. Needs to go for rehab. I would recommend [facility] or [facility] -both have dialysis clinic attached. Once the exact location is known I will arrange for outpatient dialysis. Time Spent With Patient Time: Total time managing care of this patient today ____ minutes. Progress Note: Quality Stroke Does the patient have a stroke diagnosis?: No
[2023-02-24] MEDS: Lidocaine 4 % Patch ADH..PATCH 1 PATCH TRANSDERMA (10:36)
[2023-02-24] MEDS: Sodium Bicarbonate 650 MG TABLET 325 MG PO ×3 (10:36→19:56)
[2023-02-24] MEDS: Venlafaxine HCl ER 150 MG CAP.ER.24H PO (10:37)
[2023-02-24] MEDS: Aspirin Enteric Coated 81 MG TABLET.DR PO (10:37)
[2023-02-24] MEDS: Midodrine HCl 5 MG TABLET PO (10:37)
[2023-02-24] MEDS: Sevelamer Carbonate Tablet 800 MG TABLET PO ×3 (10:38→19:57)
[2023-02-24] MEDS: buPROPion HCl XL 150 MG TAB.ER.24H PO (10:38)
[2023-02-24] MEDS: 0.9 % Sodium Chloride Flush 3 ML SYRINGE IVFLUSH ×3 (10:38→19:57)
--- NOTE | 2023-02-24 13:50 | HO.PM.IMPN ---
Subjective Subjective Date of Service: 02/24/23 Interval History: Feels better no reported lightheaded blood pressure elevated no other overnight events Review of Systems No fever, chills but feels weakness and dizziness No chest pain, palpitation No shortness of breath or coughing No abdominal pain, nausea or vomiting No urinary symptoms No any rash or wounds Physical Exam Vital Signs: Vital Signs: Last Vital Signs Temp 97.5 F 02/24/23 08:00 Pulse 62 02/24/23 08:10 Resp 17 02/24/23 08:00 BP 154/63 H 02/24/23 08:10 Pulse Ox 99 02/24/23 08:00 O2 Del Method Room Air 02/24/23 08:00 BMI result Body Mass Index 35.2 Const: Other: Constitutional : Awake, interactive, obese, not in distress Neck : Normal inspection, Supple Cardiovascular : RRR, no JVP, no lower extremity edema Respiratory : good bilateral air entry,? no crackles, no wheezes or rhonchi Gastrointestinal:? soft, lax, Normal bowel sounds, Non tender Skin : Warm, Dry Neurological : Alert & oriented x3, No focal deficit Objective Data Active Medications Acetaminophen (Acetaminophen 325 Mg Tablet) 650 mg PO Q6H PRN PRN Reason: Pain, Mild (Pain Scale 1-3) Last Admin: 02/23/23 17:19 Dose: 650 mg Documented By: MERCEDES Aspirin (Aspirin Enteric Coated 81 Mg Tablet.) 81 mg PO DAILY [facility] Last Admin: 02/24/23 10:37 Dose: 81 mg Documented By: CHLOE Atorvastatin Calcium (Atorvastatin Calcium 80 Mg Tablet) 80 mg PO BEDTIME [facility] Last Admin: 02/23/23 20:42 Dose: 80 mg Documented By: MARIO Bupropion HCl (Bupropion Hcl Xl 150 Mg Tab.Er.24h) 150 mg PO DAILY [facility] Last Admin: 02/24/23 10:38 Dose: 150 mg Documented By: CHLOE Heparin Sodium (Porcine) (Heparin Sodium,Porcine 5,000 Unit/Ml Vial) 5,000 unit SUBCUT Q12H [facility] Last Admin: 02/24/23 05:27 Dose: 5,000 unit Documented By: JORGE Lidocaine (Lidocaine 4 % Patch Adh..Patch) 1 patch TRANSDERMA DAILY [facility] Last Admin: 02/24/23 10:36 Dose: 1 patch Documented By: CHLOE Lorazepam (Lorazepam 0.5 Mg Tablet) 0.5 mg PO BEDTIME PRN PRN Reason: Anxiety Midodrine (Midodrine Hcl 5 Mg Tablet) 5 mg PO TID [facility] Last Admin: 02/24/23 10:37 Dose: 5 mg Documented By: CHLOE Ondansetron HCl (Ondansetron Hcl 4 Mg/2 Ml Vial) 4 mg IVPUSH Q8H PRN PRN Reason: Nausea and Vomiting Pharmacy Consult (Consult Rx Perform Med Rec) 1 each MISCELLANE ONCE PRN PRN Reason: Consult order Sevelamer Carbonate (Sevelamer Carbonate Tablet 800 Mg Tablet) 800 mg PO TID [facility] Last Admin: 02/24/23 10:38 Dose: 800 mg Documented By: CHLOE Sodium Bicarbonate (Sodium Bicarbonate 650 Mg Tablet) 325 mg PO TID [facility] Last Admin: 02/24/23 10:36 Dose: 325 mg Documented By: CHLOE Sodium Chloride (0.9 % Sodium Chloride Flush 3 Ml Syringe) 3 ml IVFLUSH QSHIFT [facility] Last Admin: 02/24/23 10:38 Dose: 3 ml Documented By: CHLOE Tramadol HCl (Tramadol Hcl 50 Mg Tablet) 25 mg PO Q6H PRN PRN Reason: Pain, Severe (Pain Scale 7-10) Last Admin: 02/24/23 04:20 Dose: 25 mg Documented By: JORGE Venlafaxine HCl (Venlafaxine Hcl Er 150 Mg Cap.Er.24h) 150 mg PO DAILY [facility] Last Admin: 02/24/23 10:37 Dose: 150 mg Documented By: CHLOE Labs 02/22/23 13:45 02/23/23 06:40 Microbiology Microbiology Results: Microbiology 02/23/23 00:00 Urine Culture - Final Urine clean catch - Urine negro top Assessment and Plan (1) Orthostatic hypotension: Status: Acute (2) Physical deconditioning: Status: Acute (3) ESRD (end stage renal disease) on dialysis: Status: Acute Plan An 87 years old lady with PMH of COPD, HTN, HLD, ESRD on HD (MWF) who presents to the hospital with lightheadedness and dizziness. Postural hypotension likely 2/2 dehydration from over dialysis No clear source of infection identified Hold BP meds DC Midodrine as BP picking up, she might need a dose on dialysis days. PT eval rec SNF ESRD on HD Nephrology consult Dialysis MWF Mood disorder Continue bupropion, venlafaxine HTN Hold home meds HLD Continue statin Full Code DVT Prophylaxis: Heparin Patient will need overnight hospital stay for postural hypotension and need of dialysis, pending safe discharge plan Time Spent With Patient Time: Total time managing care of this patient today ____ minutes. Quality Stroke Does the patient have a stroke diagnosis?: No VTE Prior VTE?: No VTE Risk Level:: Medical - moderate - high VTE Device Contraindication: Treatment Not Indicated VTE Drug Contraindication: N/A - Med Ordered
[2023-02-24] MEDS: Atorvastatin Calcium 80 MG TABLET PO (19:56)
[2023-02-25 03:23] VITALS: BP 132/64; PULSE 64; RESP 17; TEMP 36.2; O2SAT 98
[2023-02-25] MEDS: Heparin Sodium,Porcine 5,000 UNIT/ML VIAL 5000 UNIT SUBCUT (06:11)
[2023-02-25 08:00] VITALS: BP 137/63; BP 158/69; PULSE 66; PULSE 67; RESP 18; TEMP 37.3; O2SAT 97
[2023-02-25 08:13] VITALS: BP 127/60; PULSE 65
[2023-02-25] MEDS: Venlafaxine HCl ER 150 MG CAP.ER.24H PO (08:19)
[2023-02-25] MEDS: Sodium Bicarbonate 650 MG TABLET 325 MG PO ×2 (08:19→13:50)
[2023-02-25] MEDS: Sevelamer Carbonate Tablet 800 MG TABLET PO ×2 (08:19→13:49)
[2023-02-25] MEDS: buPROPion HCl XL 150 MG TAB.ER.24H PO (08:19)
[2023-02-25] MEDS: Aspirin Enteric Coated 81 MG TABLET.DR PO (08:20)
[2023-02-25] MEDS: Lidocaine 4 % Patch ADH..PATCH 1 PATCH TRANSDERMA (08:21)
[2023-02-25] MEDS: 0.9 % Sodium Chloride Flush 3 ML SYRINGE IVFLUSH (08:21)
--- NOTE | 2023-02-25 09:16 | PM.PNNEP ---
Subjective Subjective Date of Service: 02/25/23 Interval history: events noted. Overall doing better Physical Exam Vital Signs: Vital Signs: Last Vital Signs Temp 99.1 F 02/25/23 08:00 Pulse 65 02/25/23 08:13 Resp 18 02/25/23 08:00 BP 127/60 02/25/23 08:13 Pulse Ox 97 02/25/23 08:00 O2 Del Method Room Air 02/25/23 08:00 BMI result Body Mass Index 35.2 Const: Other: Constitutional : Awake, interactive, obese, not in distress Neck : Normal inspection, Supple Cardiovascular : RRR, no JVP, no lower extremity edema Respiratory : good bilateral air entry,? no crackles, no wheezes or rhonchi Gastrointestinal:? soft, lax, Normal bowel sounds, Non tender Skin : Warm, Dry Neurological : Alert & oriented x3, No focal deficit General: cooperative and no acute distress Orientation/consciousness: oriented to person and oriented to place Neuro: General: oriented to person and oriented to place Objective Data Labs 02/22/23 13:45 02/23/23 06:40 Microbiology Microbiology Results: Microbiology 02/23/23 00:00 Urine clean catch - Urine negro top Urine Culture - Final Procedures Date of Service Date of Service: 02/25/23 Assessment & Plan Assessment and plan (1) ESRD (end stage renal disease) on dialysis: Status: Acute Plan 87-year-old woman with ESRD who was due for dialysis today. Overall she has no signs or symptoms of uremia. Potassium is within normal range. Plan dialysis on a Thursday schedule. Needs to go for rehab. I would recommend [facility] or [facility] -both have dialysis clinic attached. will continue with outpatient dialysis per protocol . Time Spent With Patient Time: Total time managing care of this patient today ____ minutes. Progress Note: Quality Stroke Does the patient have a stroke diagnosis?: No
--- NOTE | 2023-02-25 11:27 | P.PNIM_ITS ---
Subjective Subjective Date of Service: 02/25/23 Interval History: feeling better Physical Exam Vital Signs: Vital Signs: Last Vital Signs Temp 99.1 F 02/25/23 08:00 Pulse 65 02/25/23 08:13 Resp 18 02/25/23 08:00 BP 127/60 02/25/23 08:13 Pulse Ox 97 02/25/23 08:00 O2 Del Method Room Air 02/25/23 08:00 BMI result Body Mass Index 35.2 Const: Other: Constitutional : Awake, interactive, obese, not in distress Neck : Normal inspection, Supple Cardiovascular : RRR, no JVP, no lower extremity edema Respiratory : good bilateral air entry,? no crackles, no wheezes or rhonchi Gastrointestinal:? soft, lax, Normal bowel sounds, Non tender Skin : Warm, Dry Neurological : Alert & oriented x3, No focal deficit General: cooperative and no acute distress Orientation/consciousness: oriented to person and oriented to place Neuro: General: oriented to person and oriented to place Objective Data Active Medications Acetaminophen (Acetaminophen 325 Mg Tablet) 650 mg PO Q6H PRN PRN Reason: Pain, Mild (Pain Scale 1-3) Last Admin: 02/23/23 17:19 Dose: 650 mg Documented By: MERCEDES Aspirin (Aspirin Enteric Coated 81 Mg Tablet.Dr) 81 mg PO DAILY [facility] Last Admin: 02/25/23 08:20 Dose: 81 mg Documented By: YOBANI Atorvastatin Calcium (Atorvastatin Calcium 80 Mg Tablet) 80 mg PO BEDTIME [facility] Last Admin: 02/24/23 19:56 Dose: 80 mg Documented By: ROSIE Bupropion HCl (Bupropion Hcl Xl 150 Mg Tab.Er.24h) 150 mg PO DAILY [facility] Last Admin: 02/25/23 08:19 Dose: 150 mg Documented By: YOBANI Heparin Sodium (Porcine) (Heparin Sodium,Porcine 5,000 Unit/Ml Vial) 5,000 unit SUBCUT Q12H [facility] Last Admin: 02/25/23 06:11 Dose: 5,000 unit Documented By: ROSIE Lidocaine (Lidocaine 4 % Patch Adh..Patch) 1 patch TRANSDERMA DAILY [facility] Last Admin: 02/25/23 08:21 Dose: 1 patch Documented By: YOBANI Lorazepam (Lorazepam 0.5 Mg Tablet) 0.5 mg PO BEDTIME PRN PRN Reason: Anxiety Ondansetron HCl (Ondansetron Hcl 4 Mg/2 Ml Vial) 4 mg IVPUSH Q8H PRN PRN Reason: Nausea and Vomiting Pharmacy Consult (Consult Rx Perform Med Rec) 1 each MISCELLANE ONCE PRN PRN Reason: Consult order Sevelamer Carbonate (Sevelamer Carbonate Tablet 800 Mg Tablet) 800 mg PO TID [facility] Last Admin: 02/25/23 08:19 Dose: 800 mg Documented By: YOBANI Sodium Bicarbonate (Sodium Bicarbonate 650 Mg Tablet) 325 mg PO TID [facility] Last Admin: 02/25/23 08:19 Dose: 325 mg Documented By: YOBANI Sodium Chloride (0.9 % Sodium Chloride Flush 3 Ml Syringe) [facility] Admin: 02/25/23 08:21 Dose: 3 ml Documented By: YOBANI Tramadol HCl (Tramadol Hcl 50 Mg Tablet) 25 mg PO Q6H PRN PRN Reason: Pain, Severe (Pain Scale 7-10) Last Admin: 02/24/23 20:11 Dose: 25 mg Documented By: ROSIE Venlafaxine HCl (Venlafaxine Hcl Er 150 Mg Cap.Er.24h) 150 mg PO DAILY [facility] Last Admin: 02/25/23 08:19 Dose: 150 mg Documented By: YOBANI Labs 02/22/23 13:45 02/23/23 06:40 Microbiology Microbiology Results: Microbiology 02/23/23 00:00 Urine Culture - Final Urine clean catch - Urine negro top Assessment and Plan (1) Orthostatic hypotension: Status: Acute (2) Physical deconditioning: Status: Acute (3) ESRD (end stage renal disease) on dialysis: Status: Acute Plan 87F with PMH of COPD, HTN, HLD, ESRD on HD (MWF) who presented to the hospital with lightheadedness and dizziness. Postural hypotension likely 2/2 dehydration from over dialysis No clear source of infection identified Holding propanolol DCed Midodrine as BP picking up, she might need a dose on dialysis days. PT eval rec SNF ESRD on HD Nephrology consult Dialysis MWF Mood disorder Continue bupropion, venlafaxine HLD Continue statin Full Code DVT Prophylaxis: Heparin reason for continued hospitalization: placement Time Spent With Patient Time: Total time managing care of this patient today ____ minutes. Quality Stroke Does the patient have a stroke diagnosis?: No VTE Prior VTE?: No VTE Risk Level:: Medical - moderate - high VTE Device Contraindication: Treatment Not Indicated VTE Drug Contraindication: N/A - Med Ordered
--- NOTE | 2023-02-25 13:43 | P.DS_ITS ---
DS: Providers Provider Date of Service: 02/25/23 Date of admission: 02/22/23 15:55 Primary care physician: Joshua Schaeffer MD Consults: 02/22/23 15:54 Consult to Nephrology Routine Consulting Provider: Luigi Duran Reason for consultation: postural Hypotension post HD, needs HD DS: Diagnosis Discharge Diagnosis (1) Orthostatic hypotension: Status: Acute (2) Physical deconditioning: Status: Acute (3) ESRD (end stage renal disease) on dialysis: Status: Acute DS: Summary Hospital Course Hospital Course: from initial hpi: An 87 years old lady with PMH of COPD, HTN, HLD, ESRD on HD (MWF) who presents to the hospital with lightheadedness and dizziness. reports that she had 2 sessions Alley and Fri but not sure why and not the best historian. report that since then she has been unsteady and dizzy in home. denies any associated chest pain, shortness of breath, cough, fever, palpitations, falls or injuries. She had similar presentations before. BP was found to be significantly low. Started on IVF and will be admitted for further management. hospital course: Patient was admitted for orthostatic hypotension secondary to dehydration. Her antihypertensives were held and her blood pressure improved. Initially she was started on midodrine but this was discontinued his blood pressure increased. Patient no further events. She worked with physical therapy recommended short- term rehab at skilled nurse facility. For end-stage renal disease he was continued on hemodialysis. For mood disorder she was continue bupropion and venlafaxine. For hyperlipidemia she was continued on statin. Patient is feeling better [facility] Time Spent with Patient Time attestation: Total time managing care of this patient today ____ minutes. Discharge coordination time: Greater than 30 minutes Quality: Safe Use of Opioids Does Pt have an Active Cancer Diagnosis on the Problem List?: No Quality: Stroke Does the patient have a stroke diagnosis?: No Physical Exam Vital Signs: Vital Signs: Last Vital Signs Temp 99.1 F 02/25/23 08:00 Pulse 65 02/25/23 08:13 Resp 18 02/25/23 08:00 BP 127/60 02/25/23 08:13 Pulse Ox 97 02/25/23 08:00 O2 Del Method Room Air 02/25/23 08:00 BMI result Body Mass Index 35.2 Const: Other: Constitutional : Awake, interactive, obese, not in distress Neck : Normal inspection, Supple Cardiovascular : RRR, no JVP, no lower extremity edema Respiratory : good bilateral air entry,? no crackles, no wheezes or rhonchi Gastrointestinal:? soft, lax, Normal bowel sounds, Non tender Skin : Warm, Dry Neurological : Alert & oriented x3, No focal deficit General: cooperative and no acute distress Orientation/consciousness: oriented to person and oriented to place Neuro: General: oriented to person and oriented to place DS: Data Data Completed and Pending Completed studies during hospitalization [Text1]: Procedures Performance of Urinary Filtration, Intermittent, Less than 6 Hours Per Day (01/25/23) Discharge Plan Discharge Anticipated Discharge Date/Time: 02/25/23 13:39 Patient Disposition: Xfer SNF Discharge Diagnosis: orthostatic hypotension Referrals: Joshua Schaeffer MD [Primary Care Provider] - 1 Week Discharge Medications: Continued lorazepam 0.5 mg tablet 0.5 mg PO BEDTIME PRN (Reason: Anxiety) Qty: 30 1RF (DME) T.E.D. Knee Mneaab-P-Eehy Misc See Rx Instructions .Route Qty: 2 0RF Rx Instructions: As directed lidocaine-prilocaine 2.5-2.5 % cream See Rx Instructions .ROUTE .COMPLEX Rx Instructions: apply small amount to access site (AVF) 1 to 2 hours before dialysis (MWF). cover with occlusive dressing (saran wrap) lidocaine 5 % adhesive patch,medicated 1 patch topical DAILY rosuvastatin 20 mg tablet 1 tab PO BEDTIME bupropion HCl 150 mg tablet extended release 24 hr 1 tab PO DAILY venlafaxine 150 mg tablet extended release 24hr 1 tab PO DAILY sodium bicarbonate 325 mg Tablet 325 mg PO TID aspirin 81 mg Tablet,Delayed Release (Dr/Ec) 81 mg PO DAILY sevelamer carbonate 800 mg tablet 1 tab PO TID fexofenadine [Anastasiia Allergy] 180 mg Tablet 180 mg PO DAILY PRN (Reason: Allergy Symptoms) Discontinued carvedilol 25 mg tablet 1 tab PO BID propranolol 60 mg tablet 1 tab PO BID Discharge Orders: Discharge Order (Routine); Ordered 02/25/23 Ordered By: Erick Mari Diet: Advance to usual diet Activity on Discharge: As tolerated Stand Alone Forms: Patient Portal Discharge page Care Plan Goals: avoid hypotension Health Concerns: hyptension Plan of Treatment: hodling antihypertensives, monitor Assessment: see above
--- NOTE | 2023-02-25 13:55 | MHC.CM.PN ---
PATIENT OFFERED A BED AT [facility] TO TRANSPORT. PATIENT, RN, UNIT, AND PATIENT'S SON/HCP, BARBARA, MADE AWARE ) [place] [facility] 1600 TRANSPORT TIME
[2023-02-25 15:34] VITALS: BP 112/46; PULSE 78; RESP 17; TEMP 36.3; O2SAT 99
[2023-02-25 15:45] VITALS: BP 110/38; PULSE 76
--- NOTE | 2023-02-26 10:24 | MHC.CM.PN ---
POST DISCHARGE NOTE DC SUMMARY AND COVID RESULTS FAXED TO KATERINA COTA @ [phone] ([facility]) PER HER REQUEST
== END 2023-02-25 16:08 | disposition skilled nursing facility (03) | DRG 640 ==
LOC: HO.ED 15:20 → HO.EDOVER 16:01 → HO.S3 02-23 06:54
PROVIDERS: Nurse Practitioner Family; Admitting Provider Student in an Organized Health Care Education/Training Program; Emergency Provider Emergency Medicine; PCP Internal Medicine; Visit Provider Internal Medicine
DX: E86.0 Dehydration (principal); N18.6 End stage renal disease; I12.0 Hypertensive chronic kidney disease with stage 5 chronic kidney disease or end stage renal disease; I95.1 Orthostatic hypotension; Z99.2 Dependence on renal dialysis; E78.00 Pure hypercholesterolemia, unspecified; J44.9 Chronic obstructive pulmonary disease, unspecified; Z20.822 Contact with and (suspected) exposure to COVID-19; Z79.82 Long term (current) use of aspirin; Z79.899 Other long term (current) drug therapy
CPT/HCPCS: 36415; 71046; 80048; 80076; 81001; 83735; 84484; 85025; 85610; 87086; 87635; 90935; 93005; 97162; 99285; J1643; P9047

== ENCOUNTER → 2023-04-09 12:31 | Outpatient (BNVA) | payer MEDICARE, MEDICAID, SELFPAY | PROVIDERS: PCP Internal Medicine; Visit Provider Psychiatry & Neurology Psychiatry | DX: F34.1 Dysthymic disorder (principal); F41.0 Panic disorder [episodic paroxysmal anxiety] | CPT/HCPCS: Q3014 ==

== ENCOUNTER 2023-07-14 14:46 | Outpatient (AMB) | payer MEDICARE, MEDICAID, SELFPAY ==
--- NOTE | 2023-07-14 12:00 | MHC.OFFVISPS ---
Intake Intake Visit Reasons: depression Allergies No Known Allergies Allergy (Verified 08/16/21 15:17) HPI- Psychiatric Chief Complaint: depression HPI Narrative: The patient is seen in psychiatric follow-up patient has been somewhat anxious and dysphoric unhappy with dialysis center that she has been using. Hoping for home dialysis. Does not like how she is treated there and this is making her more anxious and dysphoric. Patient continues to go on the computer enjoys is socializing and playing games on the computer. She is considering looking for a new primary care physician as her PCP has moved to [place] and there is a feeling that perhaps she is not getting the connected treatment that she needs. She would qualify for certain home-based services patient continues on Wellbutrin 150 mg venlafaxine 150 mg ER Past Psychiatric History: Patient's depression originally started in relation to her who had severe COPD. She is to be quite social she did get extensive secondhand smoke from her who was oxygen dependent the latter part of his life she does have a son and daughter who are part of her life and also grandchildren. Mental Status Exam Mental Status Exam Patient Appearance: Appropriate Patient Orientation: Person, Place, Time and Situation Level of Consciousness: Awake and Appropriate Patient Behavior: Appropriate and Cooperative Mood Description: Depressed, Blunted and Apprehensive Affect Description: Appropriate, Constricted and Apprehensive Patient Cognition Impaired: Yes Ability to Follow Directions: Good Speech Pattern: Clear Memory Description: Episodic Impaired and Working Impaired Hallucinations: None Delusions: Not Present Thought Process: Intact and Goal Oriented Thought Content: positive for Goal Oriented, positive for Preoccupation, negative for Suicidal Ideation or negative for Homicidal Ideation Depressive Symptoms: Increased Anxiety, Increased Irritability, Hopelessness, Increased Fatigue, Loss of Energy and Difficulty Concentrating Judgement: Fair Judgement and Insight: Some difficulty with executive functioning intermittent memory disturbance Telehealth Telehealth Location of provider rendering services: practice address Location of patient: address on file (New address living with her granddaughter) Patient Identification confirmed using: Name, : Yes Telehealth method: video Patient verbally consented to treatment: Yes Patient verbally consented to billing insurance company: Yes Patient informed of any privacy concerns related to visit: Yes Minutes spent on Phone/Video with Pt.: 20 Assessment and Plan Assessment & Plan (1) Panic disorder: Status: Acute Code(s): F41.0 - Panic disorder [episodic paroxysmal anxiety] (2) Primary dysthymia late onset: Status: Acute Code(s): F34.1 - Dysthymic disorder (3) Physical deconditioning: Status: Acute Code(s): R53.81 - Other malaise (4) ESRD (end stage renal disease) on dialysis: Status: Acute Code(s): N18.6 - End stage renal disease; Z99.2 - Dependence on renal dialysis (5) Generalized anxiety disorder: Status: Acute Code(s): F41.1 - Generalized anxiety disorder Plan Patient feeling overwhelmed with renal dialysis might benefit from a 0.5 mg lorazepam prior to going to appointment looking at potential to change dialysis center. Increase Wellbutrin to 300 mg follow blood pressure granddaughter will be monitoring continue venlafaxine both can increase blood pressure which generally has been stable and she has been on this combination for an extended period of time. Patient is moved to [place] her PCP has moved to [place] she and her granddaughter are considering change to a new PCP Medications: Changed From bupropion HCl 150 mg PO DAILY 30 tabs 1RF To bupropion HCl 300 mg PO QAM 30 tabs 2RF From lorazepam 0.5 mg PO BEDTIME PRN 30 tabs 1RF Anxiety To lorazepam 1 TAB BEDTIME NEEDED MAY TAKE ADDITIONAL 1 TAB DAILY PRIOR TO DIALYSIS 0.5 mg PO DIRECTED PRN 45 tabs 2RF Anxiety Counseling and coordination of Care Pt. Self Management counseling: Med illness tx adherence and Behavior activation Details-Self Mgmt counseling: Some home-based physical therapy would most likely be helpful encourage strategies to help manage anxiety regarding dialysis Patient intermittently hopeless helpless also discussed with granddaughter strategies Diagnosis and Prognosis Counseling: Impact of diagnosis on life functions and Adequacy of current interventions Details-Diagnosis/Prognosis counseling: Monitor blood pressure with a combination of venlafaxine Wellbutrin monitor overuse misuse or over sedation with lorazepam Details: I spent [30] minutes reviewing the record, seeing the patient and documenting in the medical record. Counseling provided to the patient/caregiver as outlined below. Addressed patient/caregiver concerns regarding current medication regime including effective adherence. Addressed patient/caregiver concerns regarding diagnosis and prognosis including accuracy of diagnosis, prognosis over time, impact of diagnosis. Addressed patient/caregiver concerns regarding impact of recent stressors. [facility] Medical History (Updated 08/24/23 @ 15:49 by Santana Reyes MD) Acute hyperkalemia Bacteremia Chronic kidney disease (CKD) COPD (chronic obstructive pulmonary disease) Generalized anxiety disorder High cholesterol HTN (hypertension) Kidney disease Panic disorder Primary dysthymia late onset Weakness Social History Household Members: None Housing: House Do you presently have visiting nurse or other home services: Yes Alcohol intake: unknown Patient Tobacco Use Status: Never used Tobacco service: No Current occupational status: retired Social History: Patient was she is a her suffered from severe COPD after that she did feel quite isolated and alone. 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
== END 2023-07-14 14:47 | disposition home or self-care (01) ==
LOC: HO.HOP 14:46
PROVIDERS: PCP Internal Medicine; Visit Provider Psychiatry & Neurology Psychiatry
DX: F41.0 Panic disorder [episodic paroxysmal anxiety] (principal); F34.1 Dysthymic disorder; R53.81 Other malaise; N18.6 End stage renal disease; Z99.2 Dependence on renal dialysis; F41.1 Generalized anxiety disorder
CPT/HCPCS: 99214

== ENCOUNTER → 2023-07-14 14:46 | Outpatient (BNVA) | payer MEDICARE, MEDICAID, SELFPAY | PROVIDERS: PCP Internal Medicine; Visit Provider Psychiatry & Neurology Psychiatry | DX: F41.0 Panic disorder [episodic paroxysmal anxiety] (principal); F41.1 Generalized anxiety disorder; F34.1 Dysthymic disorder; R53.81 Other malaise; N18.6 End stage renal disease; Z99.2 Dependence on renal dialysis; Z79.899 Other long term (current) drug therapy | CPT/HCPCS: 99212 ==

== ENCOUNTER 2023-07-24 07:47 | Inpatient (IN) | payer MEDICARE, MEDICAID, SELFPAY ==
--- NOTE | 2023-07-24 | ECG_ITS ---
Test Reason : fall Blood Pressure : / mmHG Vent. Rate : 072 BPM Atrial Rate : 072 BPM P-R Int : 186 ms QRS Dur : 086 ms QT Int : 400 ms P-R-T Axes : 000 007 071 degrees QTc Int : 438 ms Normal sinus rhythm Normal ECG When compared with ECG of 22-FEB-2023 13:47, CT interval has decreased Heart rate has increased Referred By: Generic ED Physician Electronically Signed By:SHELLY ARAGON
--- NOTE | ~2023-07-24 | XR_ITS ---
EXAMINATION: XR HIP, RIGHT CLINICAL INFORMATION: Fall COMPARISON: None available. TECHNIQUE: Two views of the right hip and one view of the pelvis. FINDINGS: Bone alignment is normal. No fracture or dislocation. Mild arthritis at both hip joints with joint space narrowing and osteophyte formation. Bones of the pelvis are unremarkable. Degenerative changes of the lower lumbar spine. Atherosclerotic disease. XR/XR hip RT w PEL1V IMPRESSION: No fracture or dislocation. Mild arthritis at the hip joints.
--- NOTE | ~2023-07-24 | XR_ITS ---
EXAMINATION: XR LUMBOSACRAL SPINE CLINICAL INFORMATION: Fall COMPARISON: CT of the abdomen and pelvis December 2022 TECHNIQUE: Three views of the lumbosacral spine. FINDINGS: Bone alignment is normal. No acute fracture or dislocation. There may be a mild old fracture compression fracture of the superior endplate of the T12 vertebral body. This appears similar to previous abdominal and pelvic CT. Disc spaces are normal. Mild multilevel spondylosis at L1-L2 and L2-L3. Lower lumbar spine facet arthritis. Atherosclerotic disease. XR/XR lumbar spine 2-3V IMPRESSION: No acute fracture or dislocation. Mild degenerative changes. Probable old mild T12 vertebral body compression fracture.
--- NOTE | ~2023-07-24 | CT_ITS ---
EXAMINATION: CT HEAD WITHOUT CONTRAST CT CERVICAL SPINE WITHOUT CONTRAST CLINICAL INFORMATION: Fall. Neck pain. COMPARISON: CT head and cervical spine 01/24/2023. TECHNIQUE: Appointment Manager images were obtained. CT imaging of the head and cervical spine was performed without contrast. Data was reformatted into multiplanar images at the acquisition workstation. This CT examination was performed using dose optimization techniques as appropriate, including one or more of the following: Automated exposure control, iterative reconstruction, and adjustment of technique factors (mA and/or kVp) according to patient size (this includes techniques or standardized protocols for targeted exams where dose is matched to indication/reason for exam). Fleischner Society criteria for the followup of incidental pulmonary nodules was implemented if appropriate. DLP: 1162 mGy-cm. FINDINGS: Head: There is no acute intracranial hemorrhage or abnormal extra-axial collection. No intracranial mass effect or midline shift. Lateral and third ventricles are normal. No hydrocephalus. Scattered nonspecific foci of hypoattenuation are visualized within the periventricular white matter. Guevara-white matter differentiation is otherwise preserved and there is no evidence of acute territorial infarct. The calvarium and skull base are intact. Mastoid air cells and middle ear cavities are well aerated. No active paranasal sinus disease. Cervical spine: Spinal alignment is normal in the sagittal dimension. Vertebral heights are preserved. No acute fracture. No abnormal prevertebral soft tissue swelling. Grossly no spinal canal compromise. Visualized lung apices are clear. CT/CT cervical spine wo IV con IMPRESSION: Head: No acute intracranial hemorrhage. There are scattered chronic small vessel ischemic changes within the periventricular white matter. Grossly no evidence of acute territorial infarct. Cervical spine: No acute cervical spine fracture and no posttraumatic spinal subluxation.
--- NOTE | ~2023-07-24 | CT_ITS ---
EXAMINATION: CT HEAD WITHOUT CONTRAST CT CERVICAL SPINE WITHOUT CONTRAST CLINICAL INFORMATION: Fall. Neck pain. COMPARISON: CT head and cervical spine 01/24/2023. TECHNIQUE: School Psychology Professor images were obtained. CT imaging of the head and cervical spine was performed without contrast. Data was reformatted into multiplanar images at the acquisition workstation. This CT examination was performed using dose optimization techniques as appropriate, including one or more of the following: Automated exposure control, iterative reconstruction, and adjustment of technique factors (mA and/or kVp) according to patient size (this includes techniques or standardized protocols for targeted exams where dose is matched to indication/reason for exam). Fleischner Society criteria for the followup of incidental pulmonary nodules was implemented if appropriate. DLP: 1162 mGy-cm. FINDINGS: Head: There is no acute intracranial hemorrhage or abnormal extra-axial collection. No intracranial mass effect or midline shift. Lateral and third ventricles are normal. No hydrocephalus. Scattered nonspecific foci of hypoattenuation are visualized within the periventricular white matter. Guevara-white matter differentiation is otherwise preserved and there is no evidence of acute territorial infarct. The calvarium and skull base are intact. Mastoid air cells and middle ear cavities are well aerated. No active paranasal sinus disease. Cervical spine: Spinal alignment is normal in the sagittal dimension. Vertebral heights are preserved. No acute fracture. No abnormal prevertebral soft tissue swelling. Grossly no spinal canal compromise. Visualized lung apices are clear. CT/CT head/brain wo IV con IMPRESSION: Head: No acute intracranial hemorrhage. There are scattered chronic small vessel ischemic changes within the periventricular white matter. Grossly no evidence of acute territorial infarct. Cervical spine: No acute cervical spine fracture and no posttraumatic spinal subluxation.
[2023-07-24 07:54] VITALS: BP 149/59; BP 158/92; PULSE 67; PULSE 71; RESP 15; TEMP 36.7; O2SAT 97; O2SAT 98; BMI 35.5
--- NOTE | 2023-07-24 07:58 | PC.NURSE ---
third fall in two days, reports feeling weak then falling. unknown headstrike, on ASA, reporting lower back pain at this time. alert and oriented x4
[2023-07-24 08:38] LABS: MANUAL DIFF FLAG NO
[2023-07-24 08:40] LABS: Basophils Percent Auto 0.3 % (0-2); Eosinophils Absolute Auto 0.1 X10*3/uL (0.0-0.4); Hemoglobin 12.6 g/dl (12.0-16.0); Imm Gran Abs Auto 0.06 X10*3/uL (0.00-0.03); Imm Gran Pct Auto 0.4 % (0.0-0.4); Lymphocytes Absolute Auto 1.1 X10*3/uL (1.2-4.9); Lymphocytes Percent Auto 8.1 % (20-40); Mean Corpuscular HGB Conc 30.7 g/dl (31.0-35.0); Mean Corpuscular Hemoglobin 32.2 pg (27.0-33.0); Mean Corpuscular Volume 104.9 fL (80.0-98.0); Mean Platelet Volume 9.8 fL (9.4-12.3); Monocytes Absolute Auto 1.1 X10*3/uL (0.1-1.2); Monocytes Percent Auto 8.1 % (2-11); Neutrophils Absolute Auto 11.2 x10*3/uL (2.0-8.3); Neutrophils Percent Auto 82.1 % (45-73); Platelet Count 142 X10*3/uL (160-400); Red Blood Count 3.91 X10*6/uL (4.20-5.50); Red Cell Distribution Width 16.6 % (11.0-16.0); White Blood Count 13.6 X10*3/uL (4.8-10.8)
[2023-07-24 08:46] LABS: INTERNATIONAL NORM RATIO 0.9 (0.9-1.1); Prothrombin Time 10.8 SEC (11.1-13.3)
--- NOTE | 2023-07-24 09:00 | PC.NURSE ---
20g IV in RAC, NO VENIPUNCTURE OR BLOOD PRESSURES ON LEFT ARM (fistula).
[2023-07-24 09:06] LABS: Anion Gap 17 (12-20); Blood Urea Nitrogen 37 mg/dL (9-16); Carbon Dioxide 19 mmol/L (22-29); Chloride 107 mmol/L (96-108); Creatinine Clr Calc Pharmacy 8.2; Estimated Glomerular Filt Rate 8; Glucose Random 97 mg/dL (60-115); Potassium 5.1 mmol/L (3.3-5.1); Sodium 138 mmol/L (135-145)
--- NOTE | 2023-07-24 09:14 | ED_ITS ---
HPI - Fall General Chief Complaint: Fall Stated Complaint: FALL AT HOME HIP AND BACK PAIN Time Seen by Provider: 07/24/23 09:13 Source: patient, EMS and old records reviewed Mode of arrival: EMS Limitations: no limitations History of Present Illness HPI Narrative: 87 year old female wtih history of ESRD on HD (M/W/F via [facility]), anxiety, neuropathy, COPD, HTN, HLD, hx orthostatic hypotension who presents to the ER from home via EMS for evaluation after she fell 3 times in the last 3 days. She states she has had trouble controlling my feet and losing balance easily. This morning she was in the closet, lost her balance and fell backwards onto her back. Unclear if she hit her head but she denies LOC. She is ASA 81 but no anticoagulation. She reports lower back pain since her recurrent falls and some right hip pain as well. She states she also has middle neck pain but no headaches. No chest pain or SOB. She is constipated and has some abdominal cramping. She last got HD Thursday and is due today. Family reports they did a home UTI kit a couple of weeks ago and it was positive. She went to her doctor and just completed a course of antibiotics. She urinates 1-2 times per day and most of her falls are when she gets up and tries to get to the bathroom. She denies any dysuria. complaint: fall Onset (ago): hour(s) Fall from: standing Fall witnessed: no Place fall occurred: home Loss of consciousness: none Prolonged down time: no Symptoms prior to fall: none Context: history of frequent falls and other (lost balance) Location of injury: neck, back and pelvis Severity: moderate Quality: aching Associated symptoms (after fall): neck pain and abdominal pain Related Data Home Medications Medication Instructions Recorded Confirmed aspirin 81 mg tablet,delayed 81 mg PO DAILY 01/24/23 07/24/23 release fexofenadine 180 mg tablet 180 mg PO DAILY 01/24/23 07/24/23 (Anastasiia Allergy) sevelamer carbonate 800 mg tablet 1 tab PO TID 01/24/23 07/24/23 venlafaxine 150 mg tablet,extended 1 tab PO DAILY 01/24/23 07/24/23 release 24 hr atorvastatin 40 mg tablet 40 mg PO DAILY 07/24/23 07/24/23 lorazepam 0.5 mg tablet 0.5 mg PO BEDTIME PRN Anxiety 07/24/23 07/24/23 propranolol 20 mg tablet 20 mg PO BID 07/24/23 07/24/23 Previous Rx's Medication Instructions Recorded compr.stocking,knee,long,small #2 ea 08/20/21 ([facility] bupropion HCl 300 mg 24 hr tablet, 300 mg PO QAM #30 tabs 07/14/23 extended release Allergies Allergy/AdvReac Type Severity Reaction Status Date / Time No Known Allergies Allergy Verified 08/16/21 15:17 Review of Systems Review of Systems: Yes all other systems are reviewed and are negative [facility] Past Medical History Medical History Acute hyperkalemia Bacteremia Chronic kidney disease (CKD) COPD (chronic obstructive pulmonary disease) Generalized anxiety disorder High cholesterol HTN (hypertension) Kidney disease Panic disorder Primary dysthymia late onset Weakness Social History Social History Household Members: None Housing: House Do you presently have visiting nurse or other home services: Yes Alcohol intake: never Patient Tobacco Use Status: Never used Tobacco Advance Directives Date on File: 08/26/21 service: No Current occupational status: retired Physical Exam Vital Signs: Vital Signs: Last Vital Signs Temp 97.7 F 07/24/23 10:34 Pulse 75 07/24/23 10:34 Resp 17 07/24/23 10:34 BP 145/73 H 07/24/23 10:34 Pulse Ox 97 07/24/23 10:34 O2 Del Method Room Air 07/24/23 10:34 BMI result Body Mass Index 35.5 Appearance: Alert. Oriented X3. No acute distress. In cervical collar Head: normocephalic, atraumatic. Eyes: Pupils equal, round and reactive to light. ENT: Pharynx normal. No tonsillar swelling or exudate. Neck: normal inspection, no midline tenderness. soft tissue tenderness bilaterally. normal ROM CVS: Normal heart rate and rhythm. Pulses normal. Respiratory: No respiratory distress. Breath sounds normal. Abdomen: Obese, Soft with mild diffuse tenderness to deep palpation, hypoative but present +BS x4 Skin: Skin warm and dry. Normal skin color. Normal skin turgor. No rashes. Back: diffuse tenderness to the midline spine and bilateral soft tissues of the middle and lower lumbar areas, no ecchymosis Extremities: No lower extremity edema. No joint swelling. No leg shortening or external rotation. pelvis nontender and stable. small superficial skin tear to right elbow, normal ROM Neuro/psych: Oriented X 3. No motor deficit. No sensory deficit. CN II-XII intact. Normal speech and cognition. Medications Administered Discontinued Medications Generic Name Dose Route Start Last Admin Trade Name Genny PRN Reason Stop Dose Admin Acetaminophen 975 mg 07/24/23 09:19 07/24/23 09:25 Acetaminophen 325 Mg Tablet PO 07/24/23 09:20 975 mg ONCE ONE Administration Medical Decision Making Medical Decision Making [facility] Narrative: 87 year old female wtih history of ESRD on HD (M/W/F via [employer]), anxiety, neuropathy, COPD, HTN, HLD, hx orthostatic hypotension who presents to the ER from home via EMS for evaluation after she fell 3 times in the last 3 days. Recently treated for UTI. VSS on arrival to the ER. c/o low back pain, right hip pain and neck pain. CT scans of the head and neck showing no acute stroke, bleed or fractures. C- collar removed, no midline tenderness. XR lumbar spine with old T12 fx. Labs w/ leukocytosis 13.6, could be reactive due to stress vs possible infection, question UTI? no tachycardia or fever to suggest sepsis Nephrology contacted for HD today. patient placed in physician observation for PT evaluation and case management consult. patient went to HD today (orthostatics and UA still pending as patient was off the floor for several hours) Spoke with correctional casework specialist and hospitalist - per hospital policy HD patients are not to be observed in the ER with HD orders and these patients will require admission. hospitalist accepts admission Differential Diagnosis Differential Diagnoses: The differential diagnosis associated with the presentation includes recurrent falls due to general debility, UTI, orthostatic hypotension, neuropathy, viral syndrome Admission/Observation Consideration of admission/observation: Escalation of care including admission/observation considered Consult Healthcare Provider Management of the patient was discussed with: Geoscience Professor Dr. Arenas Nephrology aware of patient Lab Data [facility] Lab Attestation statement: I reviewed the patient's lab results. mild leukocytosis chronic renal failure 07/24/23 08:34 07/24/23 08:34 Labs: Lab Results 07/24/23 07/24/23 07/24/23 Range/Units 08:34 08:34 08:34 WBC 13.6 H (4.8-10.8) X10*3/uL RBC 3.91 L (4.20-5.50) X10*6/uL Hgb 12.6 (12.0-16.0) g/dl Hct 41.0 (37.0-47.0) % MCV 104.9 H (80.0-98.0) fL MCH 32.2 (27.0-33.0) pg MCHC 30.7 L (31.0-35.0) g/dl RDW 16.6 H (11.0-16.0) % Plt Count 142 L D (160-400) X10*3/uL MPV 9.8 (9.4-12.3) fL Immature Gran % (Auto) 0.4 (0.0-0.4) % Neut % (Auto) 82.1 H (45-73) % Lymph % (Auto) 8.1 L (20-40) % [place] % (Auto) 8.1 (2-11) % Eos % (Auto) 1.0 (0-4) % Baso % (Auto) 0.3 (0-2) % Lymph # (Auto) 1.1 L (1.2-4.9) X10*3/uL [place] # (Auto) 1.1 (0.1-1.2) X10*3/uL Eos # (Auto) 0.1 (0.0-0.4) X10*3/uL Baso # (Auto) 0.0 (0.0-0.2) X10*3/uL Abs Immat Gran (auto) 0.06 H (0.00-0.03) X10*3/uL Absolute Neuts (auto) 11.2 H (2.0-8.3) x10*3/uL Absolute Nucleated RBC 0.000 (0.0-0.012) X10*3/uL Nucleated RBC % (auto) 0.0 (0.0-0.2) /100WBC PT 10.8 L (11.1-13.3) SEC INR 0.9 (0.9-1.1) Sodium 138 (135-145) mmol/L Potassium 5.1 D (3.3-5.1) mmol/L Chloride 107 (96-108) mmol/L Carbon Dioxide 19 L (22-29) mmol/L Anion Gap 17 (12-20) BUN 37 H (9-16) mg/dL Creatinine 5.39 H* (0.5-1.4) mg/dL Estim Creat Clear Calc 8.2 Estimated GFR 8 Random Glucose 97 (60-115) mg/dL Calcium 10.0 D (8.4-10.2) mg/dL Independent Interpretation I performed an independent interpretation of an: EKG, Plain X-Ray and CT Scan Interpretation: CT head and neck without obvious bleed or edema xr hip without fx xr lumbar spine w/ t12 compression fx, agree w/ radiology read EKG wtih normal sinus rhythm, HR 72 bpm, normal AL interval, no ST segment el evations or depressions Radiology Impression Discussion of test interpretation with radiology: I have reviewed the radiologist's reading. Radiologist Impression: EXAMINATION: CT HEAD WITHOUT CONTRAST CT CERVICAL SPINE WITHOUT CONTRAST CLINICAL INFORMATION: Fall. Neck pain. COMPARISON: CT head and cervical spine 01/24/2023. TECHNIQUE: Oil Tester images were obtained. CT imaging of the head and cervical spine was performed without contrast. Data was reformatted into multiplanar images at the acquisition workstation. This CT examination was performed using dose optimization techniques as appropriate, including one or more of the following: Automated exposure control, iterative reconstruction, and adjustment of technique factors (mA and/or kVp) according to patient size (this includes techniques or standardized protocols for targeted exams where dose is matched to indication/reason for exam). Fleischner Society criteria for the followup of incidental pulmonary nodules was implemented if appropriate. DLP: 1162 mGy-cm. FINDINGS: Head: There is no acute intracranial hemorrhage or abnormal extra-axial collection. No intracranial mass effect or midline shift. Lateral and third ventricles are normal. No hydrocephalus. Scattered nonspecific foci of hypoattenuation are visualized within the periventricular white matter. Guevara-white matter differentiation is otherwise preserved and there is no evidence of acute territorial infarct. The calvarium and skull base are intact. Mastoid air cells and middle ear cavities are well aerated. No active paranasal sinus disease. Cervical spine: Spinal alignment is normal in the sagittal dimension. Vertebral heights are preserved. No acute fracture. No abnormal prevertebral soft tissue swelling. Grossly no spinal canal compromise. Visualized lung apices are clear. CT/CT head/brain wo IV con IMPRESSION: Head: No acute intracranial hemorrhage. There are scattered chronic small vessel ischemic changes within the periventricular white matter. Grossly no evidence of acute territorial infarct. ? Cervical spine: No acute cervical spine fracture and no posttraumatic spinal subluxation. EXAMINATION: XR LUMBOSACRAL SPINE CLINICAL INFORMATION: Fall COMPARISON: CT of the abdomen and pelvis December 2022 TECHNIQUE: Three views of the lumbosacral spine. FINDINGS: Bone alignment is normal. No acute fracture or dislocation. There may be a mild old fracture compression fracture of the superior endplate of the T12 vertebral body. This appears similar to previous abdominal and pelvic CT. Disc spaces are normal. Mild multilevel spondylosis at L1-L2 and L2-L3. Lower lumbar spine facet arthritis. Atherosclerotic disease. XR/XR lumbar spine 2-3V IMPRESSION: No acute fracture or dislocation. Mild degenerative changes. Probable old mild T12 vertebral body compression fracture. EXAMINATION: XR HIP, RIGHT CLINICAL INFORMATION: Fall COMPARISON: None available. TECHNIQUE: Two views of the right hip and one view of the pelvis. FINDINGS: Bone alignment is normal. No? fracture or dislocation. Mild arthritis at both hip joints with joint space narrowing and osteophyte formation. Bones of the pelvis are unremarkable. Degenerative changes of the lower lumbar spine. Atherosclerotic disease. XR/XR hip RT w PEL1V IMPRESSION: No fracture or dislocation. Mild arthritis at the hip joints. Independent Historian Clinical information obtained from an independent historian. History obtained from or confirmed by: Other (daughter) External Record Review External record reviewed: Outpatient record and Prior outpatient labs Prescription Management I considered prescription management with: Pain Medication and Antibiotic Chronic Conditions Patient?s care impacted by: Hypertension and Other (ESRD on HD) Critical Care Time Critical Care Time Critical Care Time: Yes Total Critical Care Time: 39 Attestation: I have personally provided critical care time exclusive of time spent on separately billable procedures. Time includes review of lab data, radiology results, discussion with consultants, and monitoring for potential decompensation. Intervention performed as documented. Discharge Plan Discharge Clinical Impression: Multiple falls, Low back pain Patient Disposition: Still a Patient
[2023-07-24] MEDS: Acetaminophen 325 MG TABLET 975 MG PO (09:25)
--- NOTE | 2023-07-24 09:34 | PC.NURSE ---
spoke to pts son who states she is due for dialysis today and has frequent UTIs
[2023-07-24 10:34] VITALS: BP 145/73; PULSE 75; RESP 17; TEMP 36.5; O2SAT 97
--- NOTE | 2023-07-24 11:00 | PC.NURSE ---
pt has 1 inch skin tear on R elbow. Bleeding controlled at this time, awaiting xrays
--- NOTE | 2023-07-24 11:52 | PC.NURSE ---
pt off unit for dialysis.
--- NOTE | 2023-07-24 17:26 | PM.IMHP ---
History of Present Illness Date of Service: 07/24/23 Chief Complaint: Falls, needs dialysis An 87 years old lady with PMH of COPD, HTN, HLD, ESRD on HD (MWF) via [facility] who presents to the hospital with lightheadedness and falls at home. She had at least 3 falls at home over the last 3 days. she is not the best historian but reports getting dizzy and unsteady on multiple occasions and can not control her movements, feels unsteady and easy to lose balance. this morning she tripped and fell. denies any associated chest pain, shortness of breath, cough, fever, palpitations, injuries but reports back pain that is chronic in nature. In ED blood work showed mild leukocytosis with no evidence of infection. she was recently treated for UTI. Needs dialysis. Admitted for further eval and management. Review of Systems Review of Systems: No fever, chills but reports weakness Back pain, neck pain No chest pain, palpitation No shortness of breath or coughing No abdominal pain, nausea or vomiting No urinary symptoms PMFSH Medical History Acute hyperkalemia Bacteremia Chronic kidney disease (CKD) COPD (chronic obstructive pulmonary disease) Generalized anxiety disorder High cholesterol HTN (hypertension) Kidney disease Panic disorder Primary dysthymia late onset Weakness Social History Household Members: None Housing: House Do you presently have visiting nurse or other home services: Yes Alcohol intake: never Patient Tobacco Use Status: Never used Tobacco Smoked in Last 30 Days: No Use of substances other than those prescribed or required for medical reasons: No Advance Directives: Yes Advance Directives on File: Yes Advance Directives Date on File: 08/26/21 Nutrition Risks: No Nutritional Risk service: No Current occupational status: retired Meds Allergies Allergy/AdvReac Type Severity Reaction Status Date / Time No Known Allergies Allergy Verified 08/16/21 15:17 Home Medications Medication Instructions Recorded Confirmed Last Taken Type aspirin 81 mg tablet,delayed 81 mg PO DAILY 01/24/23 07/24/23 07/23/23 History release fexofenadine 180 mg tablet 180 mg PO DAILY 01/24/23 07/24/23 07/23/23 History (Anastasiia Allergy) sevelamer carbonate 800 mg tablet 1 tab PO TID 01/24/23 07/24/23 07/23/23 History venlafaxine 150 mg tablet,extended 1 tab PO DAILY 01/24/23 07/24/23 07/23/23 History release 24 hr atorvastatin 40 mg tablet 40 mg PO DAILY 07/24/23 07/24/23 07/23/23 History lorazepam 0.5 mg tablet 0.5 mg PO BEDTIME PRN Anxiety 07/24/23 07/24/23 07/23/23 History propranolol 20 mg tablet 20 mg PO BID 07/24/23 07/24/23 07/23/23 History Physical Exam Vital Signs and Narrative: Vital Signs: Last Vital Signs Temp 97.7 F 07/24/23 10:34 Pulse 75 07/24/23 10:34 Resp 17 07/24/23 10:34 BP 145/73 H 07/24/23 10:34 Pulse Ox 97 07/24/23 10:34 O2 Del Method Room Air 07/24/23 10:34 BMI result Body Mass Index 35.5 Const: Other: Constitutional : Awake, interactive , not in distress Neck : Normal insp ection, Supple Car diovascular : RRR, no JVP, no lower extremity edema Re spiratory : good b ilateral air entry ,? no crackles, no wheezes or rhonch i Gastrointestinal :? soft, lax, Norm al bowel sounds, N on tender Skin : W arm, Dry Vascular: Dialysis fistula LE with thrill Ne urological : Alert & oriented x3, No focal deficit Results Labs 07/24/23 08:34 07/24/23 08:34 Labs: Laboratory Results - last 24 hr 07/24/23 07/24/23 07/24/23 08:34 08:34 08:34 MCV 104.9 H MCH 32.2 MCHC 30.7 L RDW 16.6 H Plt Count 142 L D MPV 9.8 Immature Gran % (Auto) 0.4 Neut % (Auto) 82.1 H Lymph % (Auto) 8.1 L [place] % (Auto) 8.1 Eos % (Auto) 1.0 Baso % (Auto) 0.3 Lymph # (Auto) 1.1 L [place] # (Auto) 1.1 Eos # (Auto) 0.1 Baso # (Auto) 0.0 Abs Immat Gran (auto) 0.06 H Absolute Neuts (auto) 11.2 H Absolute Nucleated RBC 0.000 Nucleated RBC % (auto) 0.0 PT 10.8 L INR 0.9 Anion Gap 17 Estim Creat Clear Calc 8.2 Estimated GFR 8 Random Glucose 97 Calcium 10.0 D Imaging Radiologist's Impressions: Impressions Cervical Spine CT 07/24/23 10:05 IMPRESSION: Head: No acute intracranial hemorrhage. There are scattered chronic small vessel ischemic changes within the periventricular white matter. Grossly no evidence of acute territorial infarct. Cervical spine: No acute cervical spine fracture and no posttraumatic spinal subluxation. Head CT 07/24/23 10:06 IMPRESSION: Head: No acute intracranial hemorrhage. There are scattered chronic small vessel ischemic changes within the periventricular white matter. Grossly no evidence of acute territorial infarct. Cervical spine: No acute cervical spine fracture and no posttraumatic spinal subluxation. Hip/Pelvis X-Ray 07/24/23 11:20 IMPRESSION: No fracture or dislocation. Mild arthritis at the hip joints. Lumbar Spine X-Ray 07/24/23 11:20 IMPRESSION: No acute fracture or dislocation. Mild degenerative changes. Probable old mild T12 vertebral body compression fracture. Assessment and Plan (1) Multiple falls: Status: Acute (2) Low back pain: Status: Acute (3) Physical deconditioning: Status: Acute (4) ESRD (end stage renal disease) on dialysis: Status: Acute Plan An 87 years old lady with PMH of COPD, HTN, HLD, [facility] who presents to the hospital with lightheadedness and falls at home. Falls 2/2 physical deconditioning, orthostatic hypotension No clear source of infection identified check orthostatic vitals continue BP meds if orthostatic ok PT eval ESRD on HD Nephrology consult Dialysis done today Mood disorder Continue bupropion, venlafaxine HTN Hold home meds HLD Continue statin Full Code DVT Prophylaxis: Heparin Patient will need 2 overnight hospital stay for falls and need of dialysis pending safe discharge plan. Time Spent With Patient Time: Total time managing care of this patient today ____ minutes. Quality Stroke Does the patient have a stroke diagnosis?: No VTE Prior VTE?: No VTE Risk Level:: Medical - moderate - high VTE Device Contraindication: Treatment Not Indicated VTE Drug Contraindication: N/A - Med Ordered
--- NOTE | 2023-07-24 17:36 | PHA.MEDREC ---
Pharmacy Consult ? Medication Reconciliation Pharmacy has completed the medication reconciliation. Patient confirmed medicaitons. Diane Walter, PadminiD
--- NOTE | 2023-07-24 17:52 | PC.NURSE ---
pt returned from dialysis. pt situated in the bed, cleaned up, and linens changed. hospitalist in room admitting patient
[2023-07-24 18:12] LABS: COVID-19 Test Negative (Negative); IDNOW Serial# 08D9AD1C
[2023-07-24 18:22] VITALS: RESP 18; TEMP 37.3
[2023-07-24 18:24] VITALS: BP 104/56; PULSE 79; RESP 18; TEMP 37.3; O2SAT 100
[2023-07-24] MEDS: Acetaminophen 325 MG TABLET 650 MG PO (19:36)
--- NOTE | 2023-07-24 19:49 | PC.NURSE ---
this rn assumed care of pt @ 1900. pt calm and cooperative. pt son at bedside. pt reports pain in lower back pt medicated according to jan. report given to [facility] pt awaiting for transport to bed assignment
[2023-07-24 20:55] VITALS: BP 122/50; PULSE 75; RESP 16; TEMP 36.4; O2SAT 97
[2023-07-24] MEDS: LORazepam 0.5 MG TABLET PO (20:56)
[2023-07-24] MEDS: Propranolol HCL 20 MG TABLET PO (20:56)
[2023-07-24] MEDS: Heparin Sodium,Porcine 5,000 UNIT/ML VIAL 5000 UNIT SUBCUT (20:56)
[2023-07-24] MEDS: 0.9 % Sodium Chloride Flush 3 ML SYRINGE IVFLUSH (20:57)
[2023-07-24] MEDS: Sevelamer Carbonate Tablet 800 MG TABLET PO (20:57)
--- NOTE | 2023-07-24 21:27 | PC.NURSE ---
Assumed care at approx 2100. Pt brought to unit by transport, A&Ox4. C/o pain with movement, but feels tylenol is effective for time being. Orthostatics ordered, unable to obtain d/t severe weaknes and pain. PT eval pending. Purewick placed on patient, repositioned for comfort, call morrison within reach, educated on hospital environment.
[2023-07-24 21:40] VITALS: BMI 35.4
--- NOTE | 2023-07-24 21:40 | MHC.CM.PN ---
IMM 07/24. Met with patient and son, admitted with bed assignment pending. Pt lives in her niece's home and she provides care. Pt has HD at [facility] . Had dialysis [place] at [facility] [place]. Pt has fallen 3 times in 2 days. Urine pending. PCP is Joshua Schaeffer. HCP on file. HCP/son Darion Doty ([phone]). Fully vax with Moderna x2 and Pfizer x3. Active with [facility]. 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 [facility] arranges transportation to dialysis. Son is requesting nursing services twice a week to assess his mother's medical needs. CM explained that patient will have a PT consult in the morning and if they recommend STR, referrals will be made to local facilities, but they need to have HD. Will refer to [facility] at patient has HD there. Explained to son that VNA services could be arranged from STR. Son understands, however he states that those services only last for a short time and he wants continual nursing services twice a week for his mother. CM explained that insurance doesn't usually cover that at home, but that he could privately pay for needed services in the future. Son is adamant that the insurance will pay. CM offered the [address] [place] [address] brochure, as they have many resources for families. D/C plan: PT consult. STR with referral placed to [facility]. Pt will need S transportation at discharge. Pt has [employer] and [employer] for insurance. CM will follow for discharge planning.
[2023-07-24 23:53] VITALS: BP 149/59; PULSE 85; RESP 18; TEMP 36.8; O2SAT 99
[2023-07-25 02:09] LABS: Appearance Urine Cloudy; Color Urine Yellow; Glucose Urine UA Negative (Negative); Leukocyte Esterase Urine Moderate (2+) (Negative); Nitrite Urine Negative (Negative); PH 6.5 (5.0-9.0); UMIC TRIGGER UACC YES; Urine Blood Moderate (2+) (Negative); Urine Ketones Trace mg/dL (Negative); Urine Protein 100 (2+) mg/dL (Neg-Trace)
[2023-07-25 02:11] LABS: Bacteria Urine 4+ (None Seen); Hyaline Casts Urine 0-2 /LPF (0-2); Squamous Epithelial Cell Urine >20 /HPF (0-2); UACC Culture Trigger YES; WBC Urine 21-50 /HPF (0-5)
[2023-07-25 03:27] VITALS: BP 149/53; PULSE 73; RESP 18; TEMP 36.7; O2SAT 99
[2023-07-25 06:07] LABS: MANUAL DIFF FLAG NO
[2023-07-25 06:13] LABS: Basophils Percent Auto 0.3 % (0-2); Eosinophils Absolute Auto 0.2 X10*3/uL (0.0-0.4); Eosinophils Percent Auto 2.3 % (0-4); Hematocrit 37.4 % (37.0-47.0); Hemoglobin 11.4 g/dl (12.0-16.0); Imm Gran Abs Auto 0.04 X10*3/uL (0.00-0.03); Imm Gran Pct Auto 0.4 % (0.0-0.4); Lymphocytes Absolute Auto 1.6 X10*3/uL (1.2-4.9); Lymphocytes Percent Auto 15.1 % (20-40); Mean Corpuscular HGB Conc 30.5 g/dl (31.0-35.0); Mean Corpuscular Hemoglobin 31.3 pg (27.0-33.0); Mean Corpuscular Volume 102.7 fL (80.0-98.0); Monocytes Absolute Auto 1.2 X10*3/uL (0.1-1.2); Monocytes Percent Auto 11.3 % (2-11); Neutrophils Absolute Auto 7.3 x10*3/uL (2.0-8.3); Neutrophils Percent Auto 70.6 % (45-73); Platelet Count 131 X10*3/uL (160-400); Red Blood Count 3.64 X10*6/uL (4.20-5.50); Red Cell Distribution Width 16.2 % (11.0-16.0); White Blood Count 10.3 X10*3/uL (4.8-10.8)
--- NOTE | 2023-07-25 06:15 | PM.EVENT ---
Event Note Date of Service: 07/25/23 Event Note: Patient with positive UA, started on IV antibiotics Time Spent With Patient Time: Total time managing care of this patient today ____ minutes.
[2023-07-25] MEDS: cefTRIAXone sodium 1 GM in 0.9 % Sodium Chloride 50 ML IV (06:54)
[2023-07-25 07:42] VITALS: BP 143/66; PULSE 74; RESP 20; TEMP 37.6; O2SAT 96
[2023-07-25] MEDS: 0.9 % Sodium Chloride Flush 3 ML SYRINGE IVFLUSH ×3 (09:30→22:24)
[2023-07-25] MEDS: Venlafaxine HCl ER 150 MG CAP.ER.24H PO (09:30)
[2023-07-25] MEDS: Heparin Sodium,Porcine 5,000 UNIT/ML VIAL 5000 UNIT SUBCUT (09:31)
[2023-07-25] MEDS: Atorvastatin Calcium 40 MG TABLET PO (09:31)
[2023-07-25] MEDS: Aspirin Enteric Coated 81 MG TABLET.DR PO (09:31)
[2023-07-25] MEDS: buPROPion HCl XL 300 MG TAB.ER.24H PO (09:31)
[2023-07-25] MEDS: Propranolol HCL 20 MG TABLET PO ×2 (09:31→22:23)
[2023-07-25] MEDS: Sevelamer Carbonate Tablet 800 MG TABLET PO ×3 (09:31→22:23)
--- NOTE | 2023-07-25 11:18 | HO.PM.IMPN ---
Subjective Subjective Date of Service: 07/25/23 Interval History: Looks more alert and interactive this morning URine test showing likely infection Denies any fever or chills reports feeling weak overall Review of Systems Review of Systems: Yes all other systems are reviewed and are negative Physical Exam Vital Signs: Vital Signs: Last Vital Signs Temp 99.6 F 07/25/23 07:42 Pulse 74 07/25/23 07:42 Resp 20 07/25/23 07:42 BP 143/66 H 07/25/23 07:42 Pulse Ox 96 07/25/23 07:42 O2 Del Method Room Air 07/25/23 07:42 BMI result Body Mass Index 35.4 Const: Other: Constitutional : Awake, interactive , not in distress Neck : Normal insp ection, Supple Car diovascular : RRR, no JVP, no lower extremity edema Re spiratory : good b ilateral air entry ,? no crackles, no wheezes or rhonch i Gastrointestinal :? soft, lax, Norm al bowel sounds, N on tender Skin : W arm, Dry Vascular: Dialysis fistula LE with thrill Ne urological : Alert & oriented x3, No focal deficit Objective Data Active Medications Acetaminophen (Acetaminophen 325 Mg Tablet) 650 mg PO Q6H PRN PRN Reason: Pain, Mild (Pain Scale 1-3) Last Admin: 07/24/23 19:36 Dose: 650 mg Documented By: JULIANNA Aspirin (Aspirin Enteric Coated 81 Mg Tablet.) 81 mg PO DAILY [facility] Last Admin: 07/25/23 09:31 Dose: 81 mg Documented By: ELI Atorvastatin Calcium (Atorvastatin Calcium 40 Mg Tablet) 40 mg PO DAILY [facility] Last Admin: 07/25/23 09:31 Dose: 40 mg Documented By: ELI Bupropion HCl (Bupropion Hcl Xl 300 Mg Tab.Er.24h) 300 mg PO DAILY [facility] Last Admin: 07/25/23 09:31 Dose: 300 mg Documented By: ELI Heparin Sodium (Porcine) (Heparin Sodium,Porcine 5,000 Unit/Ml Vial) 5,000 unit SUBCUT Q12H [facility] Last Admin: 07/25/23 09:31 Dose: 5,000 unit Documented By: ELI Ceftriaxone Sodium 1 gm/ (Sodium Chloride) 50 mls @ 100 mls/hr IV Q24H [facility] Last Infusion: 07/25/23 10:35 Dose: 0 mls/hr Documented By: ELI Lorazepam (Lorazepam 0.5 Mg Tablet) 0.5 mg PO BEDTIME PRN PRN Reason: Anxiety Last Admin: 07/24/23 20:56 Dose: 0.5 mg Documented By: BUBBA Ondansetron HCl (Ondansetron Hcl 4 Mg/2 Ml Vial) 4 mg IVPUSH Q8H PRN PRN Reason: Nausea and Vomiting Propranolol HCl (Propranolol Hcl 20 Mg Tablet) 20 mg PO BID [facility]; Protocol Last Admin: 07/25/23 09:31 Dose: 20 mg Documented By: ELI Sevelamer Carbonate (Sevelamer Carbonate Tablet 800 Mg Tablet) 800 mg PO TID [facility] Last Admin: 07/25/23 09:31 Dose: 800 mg Documented By: ELI Sodium Chloride (0.9 % Sodium Chloride Flush 3 Ml Syringe) 3 ml IVFLUSH QSHIFT [facility] Last Admin: 07/25/23 09:30 Dose: 3 ml Documented By: ELI Venlafaxine HCl (Venlafaxine Hcl Er 150 Mg Cap.Er.24h) 150 mg PO DAILY [facility] Last Admin: 07/25/23 09:30 Dose: 150 mg Documented By: ELI Labs 07/25/23 05:51 07/24/23 08:34 Labs: Laboratory Results - last 24 hr 07/24/23 07/25/23 07/25/23 17:30 01:50 05:51 MCV 102.7 H MCH 31.3 MCHC 30.5 L RDW 16.2 H Plt Count 131 L MPV 10.0 Immature Gran % (Auto) 0.4 Neut % (Auto) 70.6 Lymph % (Auto) 15.1 L [place] % (Auto) 11.3 H Eos % (Auto) 2.3 Baso % (Auto) 0.3 Lymph # (Auto) 1.6 [place] # (Auto) 1.2 Eos # (Auto) 0.2 Baso # (Auto) 0.0 Abs Immat Gran (auto) 0.04 H Absolute Neuts (auto) 7.3 Absolute Nucleated RBC 0.000 Nucleated RBC % (auto) 0.0 Urine Color Yellow Urine Appearance Cloudy Urine pH 6.5 Ur Specific [place] 1.020 Urine Protein 100 (2+) H Urine Glucose (UA) Negative Urine Ketones Trace Urine Blood Moderate (2+) H Urine Nitrite Negative Ur Leukocyte Esterase Moderate (2+) H Urine RBC 11-20 H Urine WBC 21-50 H Ur Squamous Epith Cells >20 Urine Bacteria 4+ Hyaline Casts 0-2 COVID-19 (AMANDA) Negative COVID-19 Clin Com See Note Assessment and Plan (1) Multiple falls: Status: Acute (2) Physical deconditioning: Status: Acute (3) ESRD (end stage renal disease) on dialysis: Status: Acute (4) UTI (urinary tract infection): Status: Acute Plan An 87 years old lady with PMH of COPD, HTN, HLD, ESRD on HD (MWF) [facility] who presents to the hospital with lightheadedness and falls at home. Falls 2/2 physical deconditioning, orthostatic hypotension continue Propranolol PT eval UTI Pending cultures Continue Ceftriaxone for now ESRD on HD Nephrology consult [facility] schedule Mood disorder Continue bupropion, venlafaxine HTN Continue Propranolol HLD Continue statin Full Code DVT Prophylaxis: Heparin Patient will overnight hospital stay for infection, falls and need of dialysis pending safe discharge plan. Time Spent With Patient Time: Total time managing care of this patient today ____ minutes. Quality Stroke Does the patient have a stroke diagnosis?: No VTE Prior VTE?: No VTE Risk Level:: Medical - moderate - high VTE Device Contraindication: Treatment Not Indicated VTE Drug Contraindication: N/A - Med Ordered
[2023-07-25 15:35] VITALS: BP 128/61; PULSE 68; RESP 17; TEMP 36.5; O2SAT 97
[2023-07-25 19:53] VITALS: BP 137/60; PULSE 68; RESP 18; TEMP 36.7; O2SAT 94
[2023-07-25] MEDS: LORazepam 0.5 MG TABLET PO (22:23)
[2023-07-25] MEDS: Acetaminophen 325 MG TABLET 650 MG PO (22:26)
[2023-07-26 00:15] VITALS: BP 119/77; PULSE 66; RESP 18; TEMP 36.1; O2SAT 96
[2023-07-26 03:31] VITALS: BP 141/65; PULSE 69; RESP 20; TEMP 36.2; O2SAT 94
[2023-07-26 07:42] VITALS: BP 150/60; PULSE 74; RESP 18; TEMP 36.8; O2SAT 95
[2023-07-26] MEDS: Venlafaxine HCl ER 150 MG CAP.ER.24H PO (08:07)
[2023-07-26] MEDS: Aspirin Enteric Coated 81 MG TABLET.DR PO (08:07)
[2023-07-26] MEDS: buPROPion HCl XL 300 MG TAB.ER.24H PO (08:07)
[2023-07-26] MEDS: Heparin Sodium,Porcine 5,000 UNIT/ML VIAL 5000 UNIT SUBCUT ×2 (08:07→21:04)
[2023-07-26] MEDS: Sevelamer Carbonate Tablet 800 MG TABLET PO ×3 (08:07→21:04)
[2023-07-26] MEDS: Propranolol HCL 20 MG TABLET PO ×2 (08:07→21:04)
[2023-07-26] MEDS: cefTRIAXone sodium 1 GM in 0.9 % Sodium Chloride 50 ML IV (08:07)
[2023-07-26] MEDS: Atorvastatin Calcium 40 MG TABLET PO (08:07)
[2023-07-26] MEDS: 0.9 % Sodium Chloride Flush 3 ML SYRINGE IVFLUSH ×3 (08:08→21:04)
--- NOTE | 2023-07-26 12:42 | P.PNIM_ITS ---
Subjective Subjective Date of Service: 07/26/23 Interval History: alert and interactive this morning Urine culture pending Denies any fever or chills weak overall Review of Systems Review of Systems: Yes all other systems are reviewed and are negative Physical Exam Vital Signs: Vital Signs: Last Vital Signs Temp 98.3 F 07/26/23 07:42 Pulse 74 07/26/23 07:42 Resp 18 07/26/23 07:42 BP 150/60 H 07/26/23 07:42 Pulse Ox 95 07/26/23 07:42 O2 Del Method Room Air 07/26/23 07:42 BMI result Body Mass Index 35.4 Const: Other: Constitutional : Awake, interactive , not in distress Neck : Normal insp ection, Supple Car diovascular : RRR, no JVP, no lower extremity edema Re spiratory : good b ilateral air entry ,? no crackles, no wheezes or rhonch i Gastrointestinal :? soft, lax, Norm al bowel sounds, N on tender Skin : W arm, Dry Vascular: Dialysis fistula LE with thrill Ne urological : Alert & oriented x3, No focal deficit Objective Data Active Medications Acetaminophen (Acetaminophen 325 Mg Tablet) 650 mg PO Q6H PRN PRN Reason: Pain, Mild (Pain Scale 1-3) Last Admin: 07/25/23 22:26 Dose: 650 mg Documented By: JOSE Aspirin (Aspirin Enteric Coated 81 Mg Tablet.) 81 mg PO DAILY [facility] Last Admin: 07/26/23 08:07 Dose: 81 mg Documented By: ELI Atorvastatin Calcium (Atorvastatin Calcium 40 Mg Tablet) 40 mg PO DAILY [facility] Last Admin: 07/26/23 08:07 Dose: 40 mg Documented By: ELI Bupropion HCl (Bupropion Hcl Xl 300 Mg Tab.Er.24h) 300 mg PO DAILY [facility] Last Admin: 07/26/23 08:07 Dose: 300 mg Documented By: ELI Heparin Sodium (Porcine) (Heparin Sodium,Porcine 5,000 Unit/Ml Vial) 5,000 unit SUBCUT Q12H [facility] Last Admin: 07/26/23 08:07 Dose: 5,000 unit Documented By: ELI Ceftriaxone Sodium 1 gm/ (Sodium Chloride) 50 mls @ 100 mls/hr IV Q24H [facility] Last Infusion: 07/26/23 08:58 Dose: 0 mls/hr Documented By: ELI Lorazepam (Lorazepam 0.5 Mg Tablet) 0.5 mg PO BEDTIME PRN PRN Reason: Anxiety Last Admin: 07/25/23 22:23 Dose: 0.5 mg Documented By: JOSE Ondansetron HCl (Ondansetron Hcl 4 Mg/2 Ml Vial) 4 mg IVPUSH Q8H PRN PRN Reason: Nausea and Vomiting Propranolol HCl (Propranolol Hcl 20 Mg Tablet) 20 mg PO BID [facility]; Protocol Last Admin: 07/26/23 08:07 Dose: 20 mg Documented By: ELI Psyllium Hydrophilic Mucilloid (Psyllium Seed 3.4 Gm Powd.Pack) 3.4 gm PO DAILY [facility] Last Admin: 07/26/23 11:57 Dose: 3.4 gm Documented By: ELI Sevelamer Carbonate (Sevelamer Carbonate Tablet 800 Mg Tablet) 800 mg PO TID [facility] Last Admin: 07/26/23 08:07 Dose: 800 mg Documented By: ELI Sodium Chloride (0.9 % Sodium Chloride Flush 3 Ml Syringe) 3 ml IVFLUSH QSHIFT [facility] Last Admin: 07/26/23 08:08 Dose: 3 ml Documented By: ELI Venlafaxine HCl (Venlafaxine Hcl Er 150 Mg Cap.Er.24h) 150 mg PO DAILY [facility] Last Admin: 07/26/23 08:07 Dose: 150 mg Documented By: ELI Labs 07/25/23 05:51 07/24/23 08:34 Microbiology Microbiology Results: Microbiology 07/25/23 06:54 Blood Culture - Preliminary Blood - Venous No growth after 24 hours. 07/25/23 06:54 Blood Culture - Preliminary Blood - Venous No growth after 24 hours. 07/25/23 Unknown Urine Culture - Final Urine clean catch - Clean Catch Midstream No growth. Assessment and Plan (1) UTI (urinary tract infection): Status: Acute (2) Multiple falls: Status: Acute (3) ESRD (end stage renal disease) on dialysis: Status: Acute (4) Physical deconditioning: Status: Acute Plan An 87 years old lady with PMH of COPD, HTN, HLD, ESRD on HD (MWF) [facility] who presents to the hospital with lightheadedness and falls at home. Falls 2/2 physical deconditioning, orthostatic hypotension continue Propranolol PT eval UTI No growth in cultures DC Ceftriaxone, cover with PO Ceftin ESRD on HD Nephrology consult [facility] schedule Mood disorder Continue bupropion, venlafaxine HTN Continue Propranolol HLD Continue statin Full Code DVT Prophylaxis: Heparin Patient will overnight hospital stay for infection, falls and need of dialysis pending safe discharge plan. Time Spent With Patient Time: Total time managing care of this patient today ____ minutes. Quality Stroke Does the patient have a stroke diagnosis?: No VTE Prior VTE?: No VTE Risk Level:: Medical - moderate - high VTE Device Contraindication: Treatment Not Indicated VTE Drug Contraindication: N/A - Med Ordered
[2023-07-26 15:11] VITALS: BP 149/62; PULSE 66; RESP 20; TEMP 36.1; O2SAT 96
[2023-07-26 19:08] VITALS: BP 162/64; PULSE 70; RESP 16; TEMP 37; O2SAT 95
[2023-07-27 03:21] VITALS: BP 150/62; PULSE 68; RESP 20; TEMP 36.5; O2SAT 96
[2023-07-27 06:57] VITALS: BP 137/62; PULSE 70; RESP 20; TEMP 36.4; O2SAT 97
[2023-07-27] MEDS: buPROPion HCl XL 300 MG TAB.ER.24H PO (08:03)
[2023-07-27] MEDS: Heparin Sodium,Porcine 5,000 UNIT/ML VIAL 5000 UNIT SUBCUT ×2 (08:03→20:01)
[2023-07-27] MEDS: Venlafaxine HCl ER 150 MG CAP.ER.24H PO (08:03)
[2023-07-27] MEDS: Atorvastatin Calcium 40 MG TABLET PO (08:04)
[2023-07-27] MEDS: 0.9 % Sodium Chloride Flush 3 ML SYRINGE IVFLUSH ×3 (08:04→20:01)
[2023-07-27] MEDS: Propranolol HCL 20 MG TABLET PO ×2 (08:04→20:02)
[2023-07-27] MEDS: Aspirin Enteric Coated 81 MG TABLET.DR PO (08:04)
[2023-07-27] MEDS: Sevelamer Carbonate Tablet 800 MG TABLET PO ×3 (08:04→20:02)
--- NOTE | 2023-07-27 11:01 | W.PM.DNNEP ---
Subjective Subjective This patient was seen during dialysis. Physical Exam Vital Signs: Vital Signs: Last Vital Signs Temp 97.5 F 07/27/23 06:57 Pulse 70 07/27/23 06:57 Resp 20 07/27/23 06:57 BP 137/62 07/27/23 06:57 Pulse Ox 97 07/27/23 06:57 O2 Del Method Room Air 07/27/23 06:57 BMI result Body Mass Index 35.4 Const: Other: Constitutional : Awake, interactive , not in distress Neck : Normal insp ection, Supple Car diovascular : RRR, no JVP, no lower extremity edema Re spiratory : good b ilateral air entry ,? no crackles, no wheezes or rhonch i Gastrointestinal :? soft, lax, Norm al bowel sounds, N on tender Skin : W arm, Dry Vascular: Dialysis fistula LE with thrill Ne urological : Alert & oriented x3, No focal deficit Assessment & Plan Assessment and plan (1) UTI (urinary tract infection): Status: Acute (2) Multiple falls: Status: Acute (3) ESRD (end stage renal disease) on dialysis: Status: Acute (4) Physical deconditioning: Status: Acute Plan 87 years old lady with PMH of COPD, HTN, HLD, ESRD on HD (MWF) via [facility] who presents to the hospital with lightheadedness and falls at home. Falls 2/2 physical deconditioning, orthostatic hypotension ESRD on HD No signs or symptoms of uremia MWF schedule Mood disorder Continue bupropion, venlafaxine Time Spent With Patient Time: Total time managing care of this patient today ____ minutes. Procedures Date of Service Date of Service: 07/29/23
--- NOTE | 2023-07-27 11:43 | MHC.CM.PN ---
PT is recommending STR and a SNF search is on-going. Patient typically receives her HD @ [facility], who is following for an open female bed in their SNF. [facility] onsite [facility] but is not in network with Patient's insurance. There are multiple SNF denials.[facility] has made MD aware and will continue to follow.
--- NOTE | 2023-07-27 15:17 | P.PNIM_ITS ---
Subjective Subjective Date of Service: 07/27/23 Interval History: alert and interactive this morning In dialysis session Denies any fever or chills weak overall Review of Systems Review of Systems: Yes all other systems are reviewed and are negative Physical Exam Vital Signs: Vital Signs: Last Vital Signs Temp 97.5 F 07/27/23 06:57 Pulse 70 07/27/23 06:57 Resp 20 07/27/23 06:57 BP 137/62 07/27/23 06:57 Pulse Ox 97 07/27/23 06:57 O2 Del Method Room Air 07/27/23 06:57 BMI result Body Mass Index 35.4 Const: Other: Constitutional : Awake, interactive , not in distress Neck : Normal insp ection, Supple Car diovascular : RRR, no JVP, no lower extremity edema Re spiratory : good b ilateral air entry ,? no crackles, no wheezes or rhonch i Gastrointestinal :? soft, lax, Norm al bowel sounds, N on tender Skin : W arm, Dry Vascular: Dialysis fistula LE with thrill Ne urological : Alert & oriented x3, No focal deficit Objective Data Active Medications Acetaminophen (Acetaminophen 325 Mg Tablet) 650 mg PO Q6H PRN PRN Reason: Pain, Mild (Pain Scale 1-3) Last Admin: 07/25/23 22:26 Dose: 650 mg Documented By: JOSE Aspirin (Aspirin Enteric Coated 81 Mg Tablet.) 81 mg PO DAILY [facility] Last Admin: 07/27/23 08:04 Dose: 81 mg Documented By: ELI Atorvastatin Calcium (Atorvastatin Calcium 40 Mg Tablet) 40 mg PO DAILY [facility] Last Admin: 07/27/23 08:04 Dose: 40 mg Documented By: ELI Bupropion HCl (Bupropion Hcl Xl 300 Mg Tab.Er.24h) 300 mg PO DAILY [facility] Last Admin: 07/27/23 08:03 Dose: 300 mg Documented By: ELI Cefuroxime Axetil (Cefuroxime Axetil 250 Mg Tablet) 250 mg PO Q24H [facility] Last Admin: 07/27/23 08:04 Dose: 250 mg Documented By: ELI Heparin Sodium (Porcine) (Heparin Sodium,Porcine 5,000 Unit/Ml Vial) 5,000 unit SUBCUT Q12H [facility] Last Admin: 07/27/23 08:03 Dose: 5,000 unit Documented By: ELI Lorazepam (Lorazepam 0.5 Mg Tablet) 0.5 mg PO BEDTIME PRN PRN Reason: Anxiety Last Admin: 07/25/23 22:23 Dose: 0.5 mg Documented By: JOSE Ondansetron HCl (Ondansetron Hcl 4 Mg/2 Ml Vial) 4 mg IVPUSH Q8H PRN PRN Reason: Nausea and Vomiting Propranolol HCl (Propranolol Hcl 20 Mg Tablet) 20 mg PO BID [facility]; Protocol Last Admin: 07/27/23 08:04 Dose: 20 mg Documented By: ELI Psyllium Hydrophilic Mucilloid (Psyllium Seed 3.4 Gm Powd.Pack) 3.4 gm PO DAILY [facility] Last Admin: 07/27/23 08:04 Dose: 3.4 gm Documented By: ELI Sevelamer Carbonate (Sevelamer Carbonate Tablet 800 Mg Tablet) 800 mg PO TID [facility] Last Admin: 07/27/23 08:04 Dose: 800 mg Documented By: ELI Sodium Chloride (0.9 % Sodium Chloride Flush 3 Ml Syringe) 3 ml IVFLUSH QSHIFT [facility] Last Admin: 07/27/23 08:04 Dose: 3 ml Documented By: ELI Venlafaxine HCl (Venlafaxine Hcl Er 150 Mg Cap.Er.24h) 150 mg PO DAILY [facility] Last Admin: 07/27/23 08:03 Dose: 150 mg Documented By: ELI Labs 07/25/23 05:51 07/24/23 08:34 Microbiology Microbiology Results: Microbiology 07/25/23 06:54 Blood Culture - Preliminary Blood - Venous No growth after 48 hours. 07/25/23 06:54 Blood Culture - Preliminary Blood - Venous No growth after 48 hours. Assessment and Plan (1) Multiple falls: Status: Acute (2) Physical deconditioning: Status: Acute (3) ESRD (end stage renal disease) on dialysis: Status: Acute Plan An 87 years old lady with PMH of COPD, HTN, HLD, ESRD on HD (MWF) via [facility] who presents to the hospital with lightheadedness and falls at home. Falls 2/2 physical deconditioning, orthostatic hypotension continue Propranolol PT rec SNF placement UTI No growth in cultures DC Ceftriaxone, PO Ceftin ESRD on HD Nephrology consult MWF schedule Mood disorder Continue bupropion, venlafaxine HTN Continue Propranolol HLD Continue statin Full Code DVT Prophylaxis: Heparin Patient will overnight hospital stay for infection, falls and need of dialysis pending safe discharge plan. Time Spent With Patient Time: Total time managing care of this patient today ____ minutes. Quality Stroke Does the patient have a stroke diagnosis?: No VTE Prior VTE?: No VTE Risk Level:: Medical - moderate - high VTE Device Contraindication: Treatment Not Indicated VTE Drug Contraindication: N/A - Med Ordered
[2023-07-27 15:21] VITALS: BP 122/56; PULSE 58; RESP 22; TEMP 36.1; O2SAT 95
[2023-07-27 18:47] VITALS: BP 137/63; PULSE 60; RESP 20; TEMP 36.5; O2SAT 96
[2023-07-27 20:00] VITALS: BP 122/56; PULSE 61; RESP 18; TEMP 36.4; O2SAT 96
[2023-07-28] MEDS: LORazepam 0.5 MG TABLET PO ×2 (01:35→19:48)
[2023-07-28 04:00] VITALS: BP 120/60; PULSE 63; RESP 20; TEMP 36.1; O2SAT 98
[2023-07-28 06:54] VITALS: BP 140/63; PULSE 68; RESP 20; TEMP 36.1; O2SAT 98
[2023-07-28] MEDS: Aspirin Enteric Coated 81 MG TABLET.DR PO (07:55)
[2023-07-28] MEDS: Atorvastatin Calcium 40 MG TABLET PO (07:56)
[2023-07-28] MEDS: Venlafaxine HCl ER 150 MG CAP.ER.24H PO (07:56)
[2023-07-28] MEDS: Acetaminophen 325 MG TABLET 650 MG PO ×2 (07:56→16:12)
[2023-07-28] MEDS: Propranolol HCL 20 MG TABLET PO ×2 (07:56→19:43)
[2023-07-28] MEDS: buPROPion HCl XL 300 MG TAB.ER.24H PO (07:56)
[2023-07-28] MEDS: Sevelamer Carbonate Tablet 800 MG TABLET PO ×3 (07:56→19:42)
[2023-07-28] MEDS: Heparin Sodium,Porcine 5,000 UNIT/ML VIAL 5000 UNIT SUBCUT ×2 (07:56→19:42)
[2023-07-28] MEDS: 0.9 % Sodium Chloride Flush 3 ML SYRINGE IVFLUSH ×2 (07:57→16:00)
[2023-07-28] MEDS: Lidocaine 4 % Patch ADH..PATCH 1 PATCH TRANSDERMA (10:40)
--- NOTE | 2023-07-28 12:19 | MHC.CM.PN ---
Patient wanted home with PT. Several attempts were made to speak with a family member. A message was received from the pts nurse. Esa called and stated that the patient can not go home. She needs STR prior to returning home. The MD was notified that there was a miscommunication re dispo. PT recommends STR. Referrals have been sent. A clinical update has been sent. DP STR via BLS. [facility] is 1st choice. [facility] is the [facility] center.
--- NOTE | 2023-07-28 12:53 | P.PNIM_ITS ---
Subjective Subjective Date of Service: 07/28/23 Interval History: alert and interactive Denies any fever or chills weak overall Review of Systems Review of Systems: Yes all other systems are reviewed and are negative Physical Exam Vital Signs: Vital Signs: Last Vital Signs Temp 97 F 07/28/23 06:54 Pulse 68 07/28/23 06:54 Resp 20 07/28/23 06:54 BP 140/63 H 07/28/23 06:54 Pulse Ox 98 07/28/23 06:54 O2 Del Method Room Air 07/28/23 06:54 BMI result Body Mass Index 35.4 Const: Other: Constitutional : Awake, interactive , not in distress Neck : Normal insp ection, Supple Car diovascular : RRR, no JVP, no lower extremity edema Re spiratory : good b ilateral air entry ,? no crackles, no wheezes or rhonch i Gastrointestinal :? soft, lax, Norm al bowel sounds, N on tender Skin : W arm, Dry Vascular: Dialysis fistula LE with thrill Ne urological : Alert & oriented x3, No focal deficit Objective Data Active Medications Acetaminophen (Acetaminophen 325 Mg Tablet) 650 mg PO Q6H PRN PRN Reason: Pain, Mild (Pain Scale 1-3) Last Admin: 07/28/23 07:56 Dose: 650 mg Documented By: YOBANI Aspirin (Aspirin Enteric Coated 81 Mg Tablet.Dr) 81 mg PO DAILY [facility] Last Admin: 07/28/23 07:55 Dose: 81 mg Documented By: YOBANI Atorvastatin Calcium (Atorvastatin Calcium 40 Mg Tablet) 40 mg PO DAILY [facility] Last Admin: 07/28/23 07:56 Dose: 40 mg Documented By: YOBANI Bupropion HCl (Bupropion Hcl Xl 300 Mg Tab.Er.24h) 300 mg PO DAILY [facility] Last Admin: 07/28/23 07:56 Dose: 300 mg Documented By: YOBANI Cefuroxime Axetil (Cefuroxime Axetil 250 Mg Tablet) 250 mg PO Q24H [facility] Last Admin: 07/28/23 07:56 Dose: 250 mg Documented By: YOBANI Heparin Sodium (Porcine) (Heparin Sodium,Porcine 5,000 Unit/Ml Vial) 5,000 unit SUBCUT Q12H [facility] Last Admin: 07/28/23 07:56 Dose: 5,000 unit Documented By: YOBANI Lidocaine (Lidocaine 4 % Patch Adh..Patch) 1 patch TRANSDERMA DAILY [facility]; Protocol Last Admin: 07/28/23 10:40 Dose: 1 patch Documented By: YOBANI Lorazepam (Lorazepam 0.5 Mg Tablet) 0.5 mg PO BEDTIME PRN PRN Reason: Anxiety Last Admin: 07/28/23 01:35 Dose: 0.5 mg Documented By: SAROJRISCed Ondansetron HCl (Ondansetron Hcl 4 Mg/2 Ml Vial) 4 mg IVPUSH Q8H PRN PRN Reason: Nausea and Vomiting Propranolol HCl (Propranolol Hcl 20 Mg Tablet) 20 mg PO BID [facility]; Protocol Last Admin: 07/28/23 07:56 Dose: 20 mg Documented By: YOBANI Psyllium Hydrophilic Mucilloid (Psyllium Seed 3.4 Gm Powd.Pack) 3.4 gm PO DAILY [facility] Last Admin: 07/28/23 07:56 Dose: 3.4 gm Documented By: YOBANI Sevelamer Carbonate (Sevelamer Carbonate Tablet 800 Mg Tablet) 800 mg PO TID [facility] Last Admin: 07/28/23 07:56 Dose: 800 mg Documented By: YOBANI Sodium Chloride (0.9 % Sodium Chloride Flush 3 Ml Syringe) 3 ml IVFLUSH QSHIFT [facility] Last Admin: 07/28/23 07:57 Dose: 3 ml Documented By: YOBANI Venlafaxine HCl (Venlafaxine Hcl Er 150 Mg Cap.Er.24h) 150 mg PO DAILY [facility] Last Admin: 07/28/23 07:56 Dose: 150 mg Documented By: YOBANI Labs 07/25/23 05:51 07/24/23 08:34 Microbiology Microbiology Results: Microbiology 07/25/23 06:54 Blood Culture - Preliminary Blood - Venous No growth after 48 hours. 07/25/23 06:54 Blood Culture - Preliminary Blood - Venous No growth after 48 hours. Assessment and Plan (1) UTI (urinary tract infection): Status: Acute (2) Multiple falls: Status: Acute (3) ESRD (end stage renal disease) on dialysis: Status: Acute Plan An 87 years old lady with PMH of COPD, HTN, HLD, ESRD on HD (MWF) via [facility] who presents to the hospital with lightheadedness and falls at home. Falls 2/2 physical deconditioning, orthostatic hypotension continue Propranolol PT rec SNF placement UTI No growth in cultures PO Ceftin for 1 more day ESRD on HD Nephrology consult MWF schedule Mood disorder Continue bupropion, venlafaxine HTN Continue Propranolol HLD Continue statin Full Code DVT Prophylaxis: Heparin Patient will overnight hospital stay for infection, falls and need of dialysis pending safe discharge plan. Time Spent With Patient Time: Total time managing care of this patient today ____ minutes. Quality Stroke Does the patient have a stroke diagnosis?: No VTE Prior VTE?: No VTE Risk Level:: Medical - moderate - high VTE Device Contraindication: Treatment Not Indicated VTE Drug Contraindication: N/A - Med Ordered
[2023-07-28 15:41] VITALS: BP 131/58; PULSE 58; RESP 20; TEMP 36.2; O2SAT 98
[2023-07-28 19:26] VITALS: BP 109/64; PULSE 76; RESP 16; TEMP 36.2; O2SAT 98
--- NOTE | 2023-07-28 22:06 | PC.NURSE ---
left upper arm fistula positive for thrill and bruit
[2023-07-29] MEDS: Acetaminophen 325 MG TABLET 650 MG PO ×2 (00:03→15:33)
[2023-07-29] MEDS: 0.9 % Sodium Chloride Flush 3 ML SYRINGE IVFLUSH ×3 (00:06→15:24)
[2023-07-29 02:56] VITALS: BP 121/58; PULSE 59; RESP 17; TEMP 36.1; O2SAT 99
[2023-07-29 07:07] VITALS: BP 138/61; PULSE 62; RESP 16; TEMP 36.6; O2SAT 97
[2023-07-29] MEDS: Propranolol HCL 20 MG TABLET PO (08:15)
[2023-07-29] MEDS: Sevelamer Carbonate Tablet 800 MG TABLET PO ×2 (08:15→14:22)
[2023-07-29] MEDS: Heparin Sodium,Porcine 5,000 UNIT/ML VIAL 5000 UNIT SUBCUT (08:15)
[2023-07-29] MEDS: buPROPion HCl XL 300 MG TAB.ER.24H PO (08:15)
[2023-07-29] MEDS: Atorvastatin Calcium 40 MG TABLET PO (08:15)
[2023-07-29] MEDS: Venlafaxine HCl ER 150 MG CAP.ER.24H PO (08:15)
[2023-07-29] MEDS: Aspirin Enteric Coated 81 MG TABLET.DR PO (08:15)
[2023-07-29] MEDS: Lidocaine 4 % Patch ADH..PATCH 1 PATCH TRANSDERMA (08:26)
--- NOTE | 2023-07-29 10:30 | MHC.CM.PN ---
[facility] IS GOING FOR AUTH. BARBARA COLLIER, , AWARE AND IN AGREEMENT. CASE MANAGEMENTFOLLOWING
--- NOTE | 2023-07-29 10:32 | W.PM.DNNEP ---
Subjective Subjective This patient was seen during dialysis. Interval history: Events noted Physical Exam Vital Signs: Vital Signs: Last Vital Signs Temp 97.8 F 07/29/23 07:07 Pulse 62 07/29/23 07:07 Resp 16 07/29/23 07:07 BP 138/61 07/29/23 07:07 Pulse Ox 97 07/29/23 07:07 O2 Del Method Room Air 07/29/23 07:07 BMI result Body Mass Index 35.4 Const: Other: Constitutional : Awake, interactive , not in distress Neck : Normal insp ection, Supple Car diovascular : RRR, no JVP, no lower extremity edema Re spiratory : good b ilateral air entry ,? no crackles, no wheezes or rhonch i Gastrointestinal :? soft, lax, Norm al bowel sounds, N on tender Skin : W arm, Dry Vascular: Dialysis fistula LE with thrill Ne urological : Alert & oriented x3, No focal deficit Assessment & Plan Assessment and plan (1) UTI (urinary tract infection): Status: Acute (2) Multiple falls: Status: Acute (3) ESRD (end stage renal disease) on dialysis: Status: Acute (4) Physical deconditioning: Status: Acute Plan 87 years old lady with PMH of COPD, HTN, HLD, ESRD on HD (MWF) via [facility] who presents to the hospital with lightheadedness and falls at home. Falls 2/2 physical deconditioning, orthostatic hypotension ESRD on HD No signs or symptoms of uremia MWF schedule Mood disorder Continue bupropion, venlafaxine Time Spent With Patient Time: Total time managing care of this patient today ____ minutes. Procedures Date of Service Date of Service: 07/29/23
--- NOTE | 2023-07-29 10:37 | P.DS_ITS ---
DS: Providers Provider Date of Service: 07/29/23 Date of admission: 07/24/23 17:24 Primary care physician: Unknown Physician Consults: 07/24/23 11:18 Consult to Nephrology Stat Consulting Provider: Ambrosio Samuel Reason for consultation: ESRD on HD M/W/F Has provider been notified: Yes DS: Diagnosis Discharge Diagnosis (1) UTI (urinary tract infection): Status: Acute (2) Multiple falls: Status: Acute (3) ESRD (end stage renal disease) on dialysis: Status: Acute (4) Physical deconditioning: Status: Acute DS: Summary Hospital Course Hospital Course: from initial hpi: 87 years old lady with PMH of COPD, HTN, HLD, ESRD on HD (MWF) [facility] who presents to the hospital with lightheadedness and falls at home. She had at least 3 falls at home over the last 3 days. she is not the best historian but reports getting dizzy and unsteady on multiple occasions and can not control her movements, feels unsteady and easy to lose balance. this morning she tripped and fell. denies any associated chest pain, shortness of breath, cough, fever, palpitations, injuries but reports back pain that is chronic in nature. In ED blood work showed mild leukocytosis with no evidence of infection. she was recently treated for UTI. Needs dialysis. Admitted for further eval and management. hospital course: Patient was admitted for fall secondary to deconditioning and orthostatic hypotension. Her thought stasis improved. She worked well with physical therapy recommended short-term rehab at correction facility. She is likely to require less than 30 days pain. For UTI, there were no growth in cultures. Patient received course of p.o. Ceftin. For end-stage renal disease she was continued on dialysis. For mood disorder she was continued on bupropion and venlafaxine. For hypertension was continue on propanolol. For hyperlipidemia is continue statin. Patient is feeling better will be discharged to correction facility. Time Spent with Patient Time attestation: Total time managing care of this patient today ____ minutes. Discharge coordination time: Greater than 30 minutes Quality: Safe Use of Opioids Does Pt have an Active Cancer Diagnosis on the Problem List?: No Quality: Stroke Does the patient have a stroke diagnosis?: No Physical Exam Vital Signs: Vital Signs: Last Vital Signs Temp 97.8 F 07/29/23 07:07 Pulse 62 07/29/23 07:07 Resp 16 07/29/23 07:07 BP 138/61 07/29/23 07:07 Pulse Ox 97 07/29/23 07:07 O2 Del Method Room Air 07/29/23 07:07 BMI result Body Mass Index 35.4 Const: Other: Constitutional : Awake, interactive , not in distress Neck : Normal insp ection, Supple Car diovascular : RRR, no JVP, no lower extremity edema Re spiratory : good b ilateral air entry ,? no crackles, no wheezes or rhonch i Gastrointestinal :? soft, lax, Norm al bowel sounds, N on tender Skin : W arm, Dry Vascular: Dialysis fistula LE with thrill Ne urological : Alert & oriented x3, No focal deficit DS: Data Data Completed and Pending Completed studies during hospitalization [Text1]: Procedures Performance of Urinary Filtration, Intermittent, Less than 6 Hours Per Day (02/22/23) Labs on day of discharge: Preliminary micro results at discharge 07/25/23 06:54 Blood Culture - Preliminary Blood - Venous No growth after 48 hours. 07/25/23 06:54 Blood Culture - Preliminary Blood - Venous No growth after 48 hours. Discharge Plan Discharge Anticipated Discharge Date/Time: 07/29/23 10:33 Patient Disposition: Xfer SNF Discharge Diagnosis: fall Referrals: Joshua Schaeffer MD [Physician] - 1 Week Discharge Medications: Continued (DME) T.E.D. Knee [id number] Misc See Rx Instructions .Route Qty: 2 0RF Rx Instructions: As directed venlafaxine 150 mg tablet extended release 24hr 1 tab PO DAILY aspirin 81 mg Tablet,Delayed Release (Dr/Ec) 81 mg PO DAILY sevelamer carbonate 800 mg tablet 1 tab PO TID fexofenadine [Anastasiia Allergy] 180 mg Tablet 180 mg PO DAILY atorvastatin 40 mg tablet 40 mg PO DAILY propranolol 20 mg tablet 20 mg PO BID lorazepam 0.5 mg tablet 0.5 mg PO BEDTIME PRN (Reason: Anxiety) Rx Instructions: 1 TAB BEDTIME NEEDED MAY TAKE ADDITIONAL 1 TAB DAILY PRIOR TO DIALYSIS bupropion HCl 300 mg tablet extended release 24 hr 300 mg PO QAM Qty: 30 2RF Discharge Orders: Discharge Order (Routine); Ordered 07/29/23 Ordered By: Erick Mari Diet: Advance to usual diet Activity on Discharge: As tolerated Stand Alone Forms: Patient Portal Discharge page Care Plan Goals: recovery Health Concerns: weakness Plan of Treatment: rehab at snf Assessment: see above
[2023-07-29 13:08] VITALS: BP 131/64; PULSE 68; RESP 18; TEMP 36.4; O2SAT 96
[2023-07-29 15:15] VITALS: BP 106/53; PULSE 62; RESP 18; TEMP 36.9; O2SAT 95
--- NOTE | 2023-07-29 15:35 | MHC.CM.PN ---
PATIENT TO DC TO [facility] [address] [facility] RN, PATIENT, AND SON, BARBARA [phone], AWARE. BARBARA ASKS THAT PATIENT'S HOME MED LIST BE SENT TO FACILITY, ALONG WITH A REQUEST NOT TO CHANGE PATIENT MEDS. MED LIST FAXED INTO [facility] MADE AWARE OF REQUEST IMM 07/28 IN CHART
--- NOTE | 2023-08-03 21:43 | P.CDIM_ITS ---
PROVIDER RESPONSE TEXT: To clarify, the appropriate diagnosis supported by the clinical indicators: Obesity Due to excess calories QUERY TEXT: PHYSICIAN'S DOCUMENTATION REQUEST Date of Query: 07/27/2023 10:44 AM EDT Patient Name: Naomy Doty Admit Date: 07/24/2023 Dear Bettie Davenport, A review of the medical record indicates additional documentation may be needed. Please review below and update the documentation accordingly. Clinical Indicators: Nursing Height and Weight: BMI 35.4 Obesity class II 5ft 3 in 90.6kg If possible, please provide an associated diagnosis related to the abnormal BMI, such as: Overweight Obesity Due to excess calories Obesity Due to other cause Specify the other cause Other (explain)Clinically unable to determine (explain)Thank you, Rona Leblanc, CCS, CDIS Use of terms such as suspected, likely, concern for, or probable (associated with a specific diagnosi s that is being evaluated, monitored, or treated as if it exists) are acceptable and can be coded in the inpatient se tting, when documented at the time of discharge. Please use your independent medical judgment in providing your response. THIS QUERY IS PART OF THE PERMANENT MEDICAL RECORD
== END 2023-07-29 17:20 | disposition skilled nursing facility (03) | DRG 689 ==
LOC: HO.ED 11:22 → HO.EDOVER 17:35 → HO.IMC 19:27 → HO.S3 07-27 17:51
PROVIDERS: Physician Assistant; Admitting Provider Student in an Organized Health Care Education/Training Program; Emergency Provider Emergency Medicine Emergency Medical Services; Visit Provider Internal Medicine
DX: N39.0 Urinary tract infection, site not specified (principal); N18.6 End stage renal disease; I12.0 Hypertensive chronic kidney disease with stage 5 chronic kidney disease or end stage renal disease; J44.9 Chronic obstructive pulmonary disease, unspecified; F41.0 Panic disorder [episodic paroxysmal anxiety]; E66.09 Other obesity due to excess calories; I95.1 Orthostatic hypotension; E78.5 Hyperlipidemia, unspecified; Z68.35 Body mass index [BMI] 35.0-35.9, adult; Z99.2 Dependence on renal dialysis; Z20.822 Contact with and (suspected) exposure to COVID-19; Z79.82 Long term (current) use of aspirin; Z79.899 Other long term (current) drug therapy
CPT/HCPCS: 36415; 70450; 72100; 72125; 73502; 80048; 81001; 85025; 85610; 87040; 87086; 87635; 90999; 93005; 97116; 97163; 97530; 99221; 99285; J0696; J1643

== ENCOUNTER → 2023-07-24 17:24 | Outpatient (BNV) | payer MEDICARE, MEDICAID, SELFPAY | PROVIDERS: Admitting Provider Student in an Organized Health Care Education/Training Program; Emergency Provider Emergency Medicine Emergency Medical Services; Visit Provider Student in an Organized Health Care Education/Training Program | DX: N18.6 End stage renal disease (principal); Z99.2 Dependence on renal dialysis; N39.0 Urinary tract infection, site not specified; R29.6 Repeated falls; R53.81 Other malaise | CPT/HCPCS: 99223; 99232; 99233; 99239; 99499 ==

== ENCOUNTER 2023-08-12 18:24 | Emergency (ER) | payer MEDICARE, MEDICAID, SELFPAY ==
--- NOTE | ~2023-08-12 | XR_ITS ---
EXAMINATION: XR CHEST CLINICAL INFORMATION: Shortness of breath COMPARISON: Previous chest x-ray January 2023 TECHNIQUE: Frontal view of the chest was obtained. FINDINGS: No significant abnormality is noted involving the heart, lungs, mediastinum, bony thorax or soft tissues. Vascular stent in the left upper arm. Degenerative changes of the spine. XR/XR chest 1V IMPRESSION: No evidence for acute disease in the chest.
--- NOTE | ~2023-08-12 | CT_ITS ---
EXAMINATION: CT ABDOMEN AND PELVIS WITHOUT CONTRAST CLINICAL INFORMATION: Abdominal pain. COMPARISON: 01/16/2023. TECHNIQUE: Multidetector volumetric imaging was performed from the superior aspect of the liver through the pubic symphysis. Sagittal and coronal reformatted images were obtained on the technologist's workstation. This CT examination was performed using dose optimization techniques as appropriate, variously including the following: *Automated exposure control *Adjustment of mA and/or kV according to patient size (this includes techniques or standardized protocols for targeted exams where dose is matched to indication/reason for exam; i.e. extremities or head) *Use of iterative reconstruction technique DLP: 1019 mGy-cm FINDINGS: LUNG BASES: The visualized lung bases are unremarkable. LIVER, GALLBLADDER, AND BILIARY TREE: The liver is normal in size, shape, and attenuation. No focal hepatic lesion or biliary ductal dilatation is present. There has been a prior cholecystectomy. PANCREAS: Atrophic. SPLEEN: Unremarkable. ADRENAL GLANDS: Unremarkable. KIDNEYS AND URETERS: There is bilateral cortical thinning. There is no hydronephrosis. There is a 2.1 cm cyst upper pole left kidney. BLADDER: Unremarkable. GASTROINTESTINAL TRACT: There is no dilated small bowel. The stomach is mostly decompressed. There is stool and gas throughout large bowel. The appendix is visualized and is within normal limits. ABDOMINAL WALL: No significant hernia is appreciated. LYMPH NODES: Normal. VASCULAR: Unremarkable. PELVIC VISCERA: There is a stable 6.5 cm cystic structure within the left adnexa. OSSEOUS STRUCTURES: There is an old T12 mild compression fracture. There has been an interval compression fracture of L1. The bony structures are osteopenic CT/CT abdomen pelvis wo IV con IMPRESSION: No acute intra-abdominal process. Stool and gas throughout large bowel. L1 compression fracture not seen on prior CT performed 01/16/2023. Old T12 compression fracture. Fleischner guidelines were followed.
--- NOTE | 2023-08-12 18:26 | ECG_ITS ---
Test Reason : dizziness Blood Pressure : / mmHG Vent. Rate : 076 BPM Atrial Rate : 076 BPM P-R Int : 216 ms QRS Dur : 084 ms QT Int : 376 ms P-R-T Axes : 082 -48 069 degrees QTc Int : 423 ms Sinus rhythm with 1st degree A-V block Left axis deviation Inferior infarct , age undetermined ST depression, consider subendocardial injury Abnormal ECG When compared with ECG of 24-JUL-2023 08:10, NV interval has increased QRS axis Shifted left Inferior infarct is now Present ST now depressed in Anterolateral leads Referred By: Jessica Noriega Electronically Signed By:SHELLY ARAGON
--- NOTE | 2023-08-12 18:32 | ED.AMS ---
HPI - Altered Mental Status General Chief Complaint: Altered Mental Status Stated Complaint: AMS after dialysis/ hypotensive Time Seen by Provider: 08/12/23 18:25 Source: patient, family and EMS Mode of arrival: EMS History of Present Illness HPI narrative: 87-year-old female who is end-stage renal disease on dialysis, underwent dialysis today and then when she was at the long-term care facility was noted to be altered, the son endorses that patient was somewhat confused when she normally is able to speak with him and hold a conversation. Patient reports that she feels as though she is having shortness of breath and also endorses abdominal discomfort. Related Data Home Medications Medication Instructions Recorded Confirmed aspirin 81 mg tablet,delayed 81 mg PO DAILY 01/24/23 07/24/23 release fexofenadine 180 mg tablet 180 mg PO DAILY 01/24/23 07/24/23 (Anastasiia Allergy) sevelamer carbonate 800 mg tablet 1 tab PO TID 01/24/23 07/24/23 venlafaxine 150 mg tablet,extended 1 tab PO DAILY 01/24/23 07/24/23 release 24 hr atorvastatin 40 mg tablet 40 mg PO DAILY 07/24/23 07/24/23 lorazepam 0.5 mg tablet 0.5 mg PO BEDTIME PRN Anxiety 07/24/23 07/24/23 propranolol 20 mg tablet 20 mg PO BID 07/24/23 07/24/23 Previous Rx's Medication Instructions Recorded compr.stocking,knee,long,small #2 ea 08/20/21 (T.E.D. Knee [facility]tyyl-[facility] [place] bupropion HCl 300 mg 24 hr tablet, 300 mg PO QAM #30 tabs 07/14/23 extended release Allergies Allergy/AdvReac Type Severity Reaction Status Date / Time No Known Allergies Allergy Verified 08/16/21 15:17 Review of Systems Review of Systems: Pertinent positives and negatives as stated in HPI PMFSH Past Medical History Source: nursing notes reviewed Medical History Generalized anxiety disorder Panic disorder Primary dysthymia late onset Chronic kidney disease (CKD) Bacteremia Acute hyperkalemia Weakness High cholesterol COPD (chronic obstructive pulmonary disease) Kidney disease HTN (hypertension) Social History Social History Household Members: Family Housing: House Do you presently have visiting nurse or other home services: Yes Alcohol intake: never Patient Tobacco Use Status: Never used Tobacco Advance Directives: Yes Advance Directives on File: Yes Advance Directives Date on File: 08/26/21 service: No Current occupational status: retired Physical Exam ED Vital Signs: Vital Signs - 24 hr 08/12/23 18:54 08/12/23 21:29 08/13/23 00:04 Temperature 98.9 F 98.6 F Pulse Rate 84 77 74 Respiratory Rate 16 18 14 Blood Pressure 112/84 111/37 L 117/42 L Pulse Oximetry 91 L 94 95 Oxygen Delivery Method Room Air Room Air Room Air BMI result Body Mass Index 26.6 VITAL SIGNS: Reviewed. GENERAL: Well developed, well nourished, in no acute distress. HEAD: Normocephalic/atraumatic EYES: PERRLA, EOMI EARS: Ext canals without abnormality NOSE: Nares patent bilateral OROPHARYNX: no oral lesions noted, posterior pharynx clear, dry mucosa NECK: Supple, no adenopathy LUNGS: Decreased breath sounds, no adventitious sounds or accessory muscle use. Vomit noted to front of shirt CARDIOVASCULAR: Regular rate and rhythm without noted murmurs, no JVD or lower extremity edema. ABDOMEN: Soft, tenderness to palpation along lower abdomen, non-distended with bowel sounds. MUSCULOSKELETAL: No tenderness, deformities, or effusions noted on gross inspection. EXTREMITIES: No cyanosis, clubbing or edema. LUE: AV fistula with thrill and bruit SKIN: Inspection of the skin reveals no rashes NEUROLOGIC: Alert and oriented x 4. Strength and sensation to light touch were grossly intact x 4. Medications Administered Discontinued Medications Generic Name Dose Route Start Last Admin Trade Name Freq PRN Reason Stop Dose Admin Sodium Chloride 500 mls @ 999 mls/hr 08/12/23 18:45 08/13/23 00:03 Ns IV 08/12/23 19:15 Not Given .Q31M [facility] Medical Decision Making Medical Decision Making [facility] Narrative: [birth year]39: 87-year-old female with history and clinical presentation, DDX: Hypovolemia, UTI, SBO I reviewed patient's chart and she was recently seen here at the end of June for a urinary tract infection, blood pressure is noted to be soft and will receive 500 cc IV fluids and repeat the blood pressure. Reviewed discharge no from hospitalist who states that there was no growth on the urine culture and therefore patient was not discharged on antibiotics. However collateral information obtained from the son reports that the [place] [facility] has been giving her antibiotics and that she has 2 more days . On review of chart patient also has longstanding history mood disorder which may be contributing to some of the altered mental status that is being observed. I reviewed all investigations there is mild leukocytosis and left shift without anemia and patient is afebrile. Chemistry indices without electrolyte derangements, known ESRD with creatinine of 3.99 after dialysis today, although lactic acid noted to be elevated low clinical suspicion for infection and the noted liver enzyme derangements are not consistent with patient's history of cholecystectomy. No clinical or chest x-ray evidence of infiltrate or fluid overload and otherwise my interpretation is in agreement with radiology's impression. Urinalysis demonstrates contamination and otherwise not nitrate positive no concern for urinary tract infection at this time. Patient has remained hemodynamically stable and otherwise appears well. Due to the leukocytosis and suspicion for an episode of vomiting will pursue CT abdomen pelvis without contrast to rule out the possibility of obstruction. CT scan without acute pathology, no evidence to suggest acute obstruction or infectious etiology. There was identification of an L1 compression fracture. Patient is otherwise discharged back to the facility in stable condition, denies any pain at this time. Differential Diagnosis Differential Diagnoses: The differential diagnosis associated with the presentation includes Please see the discussion above Admission/Observation Consideration of admission/observation: Escalation of care including admission/observation considered Please see the discussion above Lab Data MDM Lab Attestation statement: I reviewed the patient's lab results. Please see the discussion above 08/12/23 19:40 08/12/23 21:16 Labs: Lab Results 08/12/23 08/12/23 08/12/23 Range/Units 19:40 21:16 21:33 WBC 11.0 H (4.8-10.8) X10*3/uL RBC 4.14 L (4.20-5.50) X10*6/uL Hgb 13.2 (12.0-16.0) g/dl Hct 42.8 (37.0-47.0) % MCV 103.4 H (80.0-98.0) fL MCH 31.9 (27.0-33.0) pg MCHC 30.8 L (31.0-35.0) g/dl RDW 14.9 (11.0-16.0) % Plt Count TNP MPV 9.8 (9.4-12.3) fL Immature Gran % (Auto) 0.8 H (0.0-0.4) % Neut % (Auto) 82.2 H (45-73) % Lymph % (Auto) 4.7 L (20-40) % Garfield % (Auto) 11.6 H (2-11) % Eos % (Auto) 0.3 (0-4) % Baso % (Auto) 0.4 (0-2) % Lymph # (Auto) 0.5 L (1.2-4.9) X10*3/uL [place]field # (Auto) 1.3 H (0.1-1.2) X10*3/uL Eos # (Auto) 0.0 (0.0-0.4) X10*3/uL Baso # (Auto) 0.0 (0.0-0.2) X10*3/uL Abs Immat Gran (auto) 0.09 H (0.00-0.03) X10*3/uL Absolute Neuts (auto) 9.1 H (2.0-8.3) x10*3/uL Absolute Nucleated RBC 0.000 (0.0-0.012) X10*3/uL Nucleated RBC % (auto) 0.0 (0.0-0.2) /100WBC Smear Tech's Comments VERIFIED Sodium 135 (135-145) mmol/L Potassium 4.6 (3.3-5.1) mmol/L Chloride 96 (96-108) mmol/L Carbon Dioxide 28 (22-29) mmol/L Anion Gap 16 (12-20) BUN 15 (9-16) mg/dL Creatinine 3.99 H (0.5-1.4) mg/dL Estim Creat Clear Calc 10.6 Estimated GFR 11 Random Glucose 93 (60-115) mg/dL Lactic Acid 2.8 H* (0.5-2.0) mmol/L Calcium 9.7 (8.4-10.2) mg/dL Total Bilirubin 0.6 (0.0-1.0) mg/dL AST 42 H (5-31) U/L ALT 44 H (0-31) U/L Alkaline Phosphatase 195 H (39-117) U/L Total Protein 6.8 (6.5-8.0) g/dL Albumin 3.5 (3.5-5.0) g/dL Urine Color Dark Yellow Urine Appearance Cloudy Urine pH 5.5 (5.0-9.0) Ur Specific [place] 1.020 (1.005-1.025) Urine Protein 30 (1+) H (Neg-Trace) mg/dL Urine Glucose (UA) Negative (Negative) mg/dL Urine Ketones Trace (Negative) mg/dL Urine Blood Negative (Negative) Urine Nitrite Negative (Negative) Ur Leukocyte Esterase Small (1+) H (Negative) Urine RBC 0-2 (0-2) /HPF Urine WBC 6-10 H (0-5) /HPF Ur Squamous Epith Cells 6-10 (0-2) /HPF Urine Bacteria Trace (None Seen) Hyaline Casts 6-10 (0-2) /LPF Independent Interpretation I performed an independent interpretation of an: EKG Interpretation: Sinus rhythm with first-degree AV block, IA-to 16 (this is new when compared to 07/24/2023), there are noted ST changes in V2/V3, no STEMI, QRS/QTC is within normal limits. Radiology Impression Discussion of test interpretation with radiology: I have reviewed the radiologist's reading. Radiologist Impression: Please see the discussion above External Record Review External record reviewed: Outpatient record, Prior outpatient labs and Prior outpatient radiology Chronic Conditions ESRD Procedures EJ/Peripheral Line Arm R: Time Out Performed: No Skin Cleansed in Sterile Fashion: Yes IV Secured and Dressing Applied: Yes Patient Tolerated Procedure: well Additional Comments: Peripheral line placed via ultrasound guidance. Critical Care Time Critical Care Time Critical Care Time: Yes Total Critical Care Time: 30 Attestation: I personally attest to this time spent taking care of the patient. Discharge Plan Discharge Clinical Impression: Compression fracture of L1 vertebra, AMS (altered mental status), End-stage renal disease (ESRD) Patient Disposition: Xfer SNF Instructions: Altered Mental Status (ED), Osteoporosis (ED), Vertebral Compression Fracture (ED) Additional Instructions: Follow-up with your primary care doctor in the next 1-2 days. Return to the ER for any worsening symptoms. Prescriptions: No Action (DME) T.E.D. Knee [id number] Misc See Rx Instructions .Route Qty: 2 0RF Rx Instructions: As directed venlafaxine 150 mg tablet extended release 24hr 1 tab PO DAILY aspirin 81 mg Tablet,Delayed Release (Dr/Ec) 81 mg PO DAILY sevelamer carbonate 800 mg tablet 1 tab PO TID fexofenadine [Anastasiia Allergy] 180 mg Tablet 180 mg PO DAILY atorvastatin 40 mg tablet 40 mg PO DAILY propranolol 20 mg tablet 20 mg PO BID lorazepam 0.5 mg tablet 0.5 mg PO BEDTIME PRN (Reason: Anxiety) Rx Instructions: 1 TAB BEDTIME NEEDED MAY TAKE ADDITIONAL 1 TAB DAILY PRIOR TO DIALYSIS bupropion HCl 300 mg tablet extended release 24 hr 300 mg PO QAM Qty: 30 2RF
[2023-08-12 18:54] VITALS: BP 112/84; BP 86/50; PULSE 80; PULSE 84; RESP 16; TEMP 37.2; O2SAT 91; O2SAT 97; BMI 26.6
[2023-08-12 19:46] LABS: Eosinophils Percent Auto 0.3 % (0-4); Hemoglobin 13.2 g/dl (12.0-16.0); PLT CLUMP 1; SCAN SMEAR FLAG 1
[2023-08-12 19:48] LABS: Basophils Percent Auto 0.4 % (0-2); Hematocrit 42.8 % (37.0-47.0); Imm Gran Abs Auto 0.09 X10*3/uL (0.00-0.03); Imm Gran Pct Auto 0.8 % (0.0-0.4); Lymphocytes Absolute Auto 0.5 X10*3/uL (1.2-4.9); Lymphocytes Percent Auto 4.7 % (20-40); MANUAL DIFF FLAG SCAN; Mean Corpuscular HGB Conc 30.8 g/dl (31.0-35.0); Mean Corpuscular Hemoglobin 31.9 pg (27.0-33.0); Mean Corpuscular Volume 103.4 fL (80.0-98.0); Mean Platelet Volume 9.8 fL (9.4-12.3); Monocytes Absolute Auto 1.3 X10*3/uL (0.1-1.2); Monocytes Percent Auto 11.6 % (2-11); Neutrophils Absolute Auto 9.1 x10*3/uL (2.0-8.3); Neutrophils Percent Auto 82.2 % (45-73); Red Blood Count 4.14 X10*6/uL (4.20-5.50); Red Cell Distribution Width 14.9 % (11.0-16.0)
[2023-08-12 20:11] LABS: Lactic Acid 2.8 mmol/L (0.5-2.0)
[2023-08-12 20:39] LABS: SLIDE REVIEW VERIFIED
[2023-08-12 21:29] VITALS: BP 111/37; PULSE 77; RESP 18; O2SAT 94
[2023-08-12 21:37] LABS: Alanine Aminotransferase 44 U/L (0-31); Albumin Level 3.5 g/dL (3.5-5.0); Alkaline Phosphatase 195 U/L (39-117); Anion Gap 16 (12-20); Aspartate Amino Transferase 42 U/L (5-31); Bilirubin Total 0.6 mg/dL (0.0-1.0); Blood Urea Nitrogen 15 mg/dL (9-16); Calcium 9.7 mg/dL (8.4-10.2); Carbon Dioxide 28 mmol/L (22-29); Chloride 96 mmol/L (96-108); Creatinine Clr Calc Pharmacy 10.6; Estimated Glomerular Filt Rate 11; Glucose Random 93 mg/dL (60-115); Potassium 4.6 mmol/L (3.3-5.1); Sodium 135 mmol/L (135-145); Total Protein 6.8 g/dL (6.5-8.0)
[2023-08-12 21:40] LABS: Appearance Urine Cloudy; Color Urine Dark Yellow; Glucose Urine UA Negative (Negative); Leukocyte Esterase Urine Small (1+) (Negative); Nitrite Urine Negative (Negative); PH 5.5 (5.0-9.0); UMIC TRIGGER UACC YES; Urine Blood Negative (Negative); Urine Ketones Trace mg/dL (Negative); Urine Protein 30 (1+) mg/dL (Neg-Trace)
[2023-08-12 21:44] LABS: Reflex Lactate? Lactic Acid Added
[2023-08-12 21:58] LABS: Bacteria Urine Trace (None Seen); RBC Urine 0-2 /HPF (0-2); UACC Culture Trigger YES
--- NOTE | 2023-08-13 | PC.NURSE ---
fluid bolus discontinued by provider. Pt is a dialysis pt.
[2023-08-13 00:04] VITALS: BP 117/42; PULSE 74; RESP 14; TEMP 37; O2SAT 95
== END 2023-08-13 01:20 | disposition skilled nursing facility (03) ==
PROVIDERS: Emergency Provider Student in an Organized Health Care Education/Training Program
DX: M48.56XA Collapsed vertebra, not elsewhere classified, lumbar region, initial encounter for fracture (principal); I12.0 Hypertensive chronic kidney disease with stage 5 chronic kidney disease or end stage renal disease; R41.82 Altered mental status, unspecified; R42 Dizziness and giddiness; R10.30 Lower abdominal pain, unspecified; I95.9 Hypotension, unspecified; R94.31 Abnormal electrocardiogram [ECG] [EKG]; N18.6 End stage renal disease; R06.02 Shortness of breath; Z79.899 Other long term (current) drug therapy
CPT/HCPCS: 36415; 36556; 51701; 71045; 74176; 80053; 81001; 83605; 85025; 85610; 87040; 87086; 93005; 99284; 99285

== ENCOUNTER 2023-09-08 12:13 | Inpatient (IN) | payer MEDICARE, MEDICAID, SELFPAY ==
--- NOTE | 2023-09-08 12:19 | ED_ITS ---
HPI - General Adult General Chief complaint: Weakness Stated complaint: AMS, falls Time Seen by Provider: 09/08/23 12:27 Source: patient and EMS Mode of arrival: EMS Limitations: other (poor historian confused ) History of Present Illness HPI narrative: This is an 87-year-old female hx of panic, esrd on HD MWF, falls, copd presenting to the emergency department via ambulance for altered mental status, confusion, weakness, multiple falls over the past few days, patient lives at home with granddaughter, she states her whole body hurts because of falling. She reports weakness. Poor historian unable to give me a clear history. Only oriented to person, not place, time or situation. her EMS family concerned that patient may have a UTI usually presents like this and has foul smelling urine. Not on blood thinners. Unable to give me an accurate review of systems. Related Data Home Medications Medication Instructions Recorded Confirmed aspirin 81 mg tablet,delayed 81 mg PO DAILY 01/24/23 07/24/23 release fexofenadine 180 mg tablet 180 mg PO DAILY 01/24/23 07/24/23 (Anastasiia Allergy) sevelamer carbonate 800 mg tablet 1 tab PO TID 01/24/23 07/24/23 venlafaxine 150 mg tablet,extended 1 tab PO DAILY 01/24/23 07/24/23 release 24 hr atorvastatin 40 mg tablet 40 mg PO DAILY 07/24/23 07/24/23 propranolol 20 mg tablet 20 mg PO BID 07/24/23 07/24/23 Previous Rx's Medication Instructions Recorded compr.stocking,knee,long,small #2 ea 08/20/21 (T.E.D. Knee [facility] [place]) bupropion HCl 150 mg 24 hr tablet, 150 mg PO QAM #30 tabs 09/04/23 extended release lorazepam 0.5 mg tablet 0.5 mg PO BEDTIME PRN Anxiety 2 09/04/23 weeks #20 tabs Allergies Allergy/AdvReac Type Severity Reaction Status Date / Time No Known Allergies Allergy Verified 08/16/21 15:17 Review of Systems 2 Review of Systems: Yes Unobtainable due to mental status PMFSH Past Medical History Attestation statement: The following information was validated with the patient. Source: old records reviewed and nursing notes reviewed Medical History Generalized anxiety disorder Panic disorder Primary dysthymia late onset Chronic kidney disease (CKD) Bacteremia Acute hyperkalemia Weakness High cholesterol COPD (chronic obstructive pulmonary disease) Kidney disease HTN (hypertension) Social History Social History Household Members: Family Housing: House Do you presently have visiting nurse or other home services: Yes Alcohol intake: never Patient Tobacco Use Status: Never used Tobacco Advance Directives: Yes Advance Directives on File: Yes Advance Directives Date on File: 08/26/21 service: No Current occupational status: retired Physical Exam ED Vital Signs: Vital Signs - 24 hr 09/08/23 12:30 09/08/23 14:37 Temperature 97.9 F 98.0 F Pulse Rate 66 59 Respiratory Rate 14 13 Blood Pressure 123/47 L 105/36 L Pulse Oximetry 95 96 Oxygen Delivery Method Room Air Room Air BMI result Body Mass Index 31.0 vss Appearance: Awake, oriented to person, not place, time or situation. Intermittently following commands. Head: Normocephalic, atraumatic, no step-offs or deformities Eyes: Pupils equal, round and reactive to light.? CVS: Normal heart rate and rhythm.? Pulses normal.? Respiratory: No respiratory distress.? Breath sounds normal.? Abdomen: Soft and nontender.? Skin: Skin warm and dry.? Normal skin color.? Normal skin turgor.? Extremities: No lower extremity edema.? No calf ttp. 5/5 strength to bilateral upper and lower extremities Back: No midline tenderness, no C-spine tenderness, full range of motion, no CVA tenderness bilaterally Neuro: Awake, oriented to person, not place, time or situation. Intermittently following commands. Course Reevaluation(s) Reevaluation #1: CBC slight leukocytosis, no shift. Chronic MCV elevation. Chemistry with baseline CKD, no acute findings. Because of this CT scans will be done w/o IVC. Trop high 18.5 likely secondary to CKD not ACS. There was a delay in obtaining lab secondary to patient being A tough stick. Time: 15:05 Reevaluation #2: Patients pressure now soft I a.m. concerned for UTI at this time will give ceftriaxone. Time: 15:30 Reevaluation #3: CT of head with no acute findings. Degenerative changes noted in cervical spine no acute fractures. Degenerative changes at the temporomandibular joint. Question anterior subluxation or translocation of the left mandibular condyle with respect to the temporal bone, patient opening and closing mouth without discomfort, no signs of trauma to face. I do not suspect this is acute in nature. Chest CT CT of the abdomen and pelvis pending. Plan is for admission for weakness, falls, suspected UTI. Time: 16:37 Additional Reevaluation(s): Spoke to hospitalist who says unsure if they will admit at this time will review case, come back down and ask questions as needed. Patient would benefit from case management they believe. Medications Administered Discontinued Medications Generic Name Dose Route Start Last Admin Trade Name Freq PRN Reason Stop Dose Admin Sodium Chloride 1,000 mls @ 999 mls/hr 09/08/23 14:45 09/08/23 15:18 Ns IV 09/08/23 15:45 999 mls/hr .Q1H1M JORDY Administration Medical Decision Making Medical Decision Making [facility] Narrative: 1222 87-year-old female presents with weakness altered mental status, confusion coming from granddaughter's house. physical examination Awake, oriented to person, not place, time or situation. Intermittently following commands. concerns for UTI versus metabolic derangements. Unlikely intracranial hemorrhage, stroke, posterior stroke, traumatic injury to chest, abdomen or pelvis. Unlikely ACS, PE. plan- labs, imaging. Differential Diagnosis Differential Diagnoses: The differential diagnosis associated with the presentation includes concerns for UTI versus metabolic derangements. Unlikely intracranial hemorrhage, stroke, posterior stroke, traumatic injury to chest, abdomen or pelvis. Unlikely ACS, PE. Admission/Observation Consideration of admission/observation: Escalation of care including admission/observation considered Lab Data [facility] Lab Attestation statement: I reviewed the patient's lab results. 09/08/23 13:33 09/08/23 14:03 Labs: Lab Results 09/08/23 09/08/23 09/08/23 Range/Units 13:33 14:03 16:01 WBC 12.1 H (4.8-10.8) X10*3/uL RBC 3.72 L (4.20-5.50) X10*6/uL Hgb 11.7 L (12.0-16.0) g/dl Hct 37.9 (37.0-47.0) % MCV 101.9 H (80.0-98.0) fL MCH 31.5 (27.0-33.0) pg MCHC 30.9 L (31.0-35.0) g/dl RDW 14.9 (11.0-16.0) % Plt Count 191 D (160-400) X10*3/uL MPV 9.4 (9.4-12.3) fL Immature Gran % (Auto) 0.3 (0.0-0.4) % Neut % (Auto) 67.0 (45-73) % Lymph % (Auto) 18.3 L (20-40) % [place] % (Auto) 11.9 H (2-11) % Eos % (Auto) 2.1 (0-4) % Baso % (Auto) 0.4 (0-2) % Lymph # (Auto) 2.2 (1.2-4.9) X10*3/uL [place] # (Auto) 1.4 H (0.1-1.2) X10*3/uL Eos # (Auto) 0.3 (0.0-0.4) X10*3/uL Baso # (Auto) 0.1 (0.0-0.2) X10*3/uL Abs Immat Gran (auto) 0.04 H (0.00-0.03) X10*3/uL Absolute Neuts (auto) 8.1 (2.0-8.3) x10*3/uL Absolute Nucleated RBC 0.000 (0.0-0.012) X10*3/uL Nucleated RBC % (auto) 0.0 (0.0-0.2) /100WBC Sodium 137 (135-145) mmol/L Potassium 4.9 (3.3-5.1) mmol/L Chloride 102 (96-108) mmol/L Carbon Dioxide 25 (22-29) mmol/L Anion Gap 15 (12-20) BUN 21 H (9-16) mg/dL Creatinine 3.75 H (0.5-1.4) mg/dL Estim Creat Clear Calc 12.2 Estimated GFR 11 Random Glucose 100 (60-115) mg/dL Lactic Acid 1.8 (0.5-2.0) mmol/L Calcium 9.5 (8.4-10.2) mg/dL Magnesium 2.2 (1.6-2.6) mg/dL Total Bilirubin 0.4 (0.0-1.0) mg/dL AST 26 (5-31) U/L ALT 16 (0-31) U/L Alkaline Phosphatase 146 H (39-117) U/L Total Creatine Kinase 100 (26-140) U/L Troponin I High Sens 18.5 H (<3.5-17.0) ng/L Total Protein 6.4 L (6.5-8.0) g/dL Albumin 3.2 L (3.5-5.0) g/dL Urine Color Urine Appearance Urine pH (5.0-9.0) Ur Specific [place] (1.005-1.025) Urine Protein (Neg-Trace) mg/dL Urine Glucose (UA) (Negative) mg/dL Urine Ketones (Negative) mg/dL Urine Blood (Negative) Urine Nitrite (Negative) Ur Leukocyte Esterase (Negative) Salicylates < 5.0 L (15-30) mg/dL Urine Opiates Screen (Not Detect) Urine Fentanyl Screen (Not Detect) Acetaminophen < 17 (<30) mcg/mL Ur Barbiturates Screen (Not Detect) Ur Phencyclidine Scrn (Not Detect) Ur Amphetamines Screen (Not Detect) U Benzodiazepines Scrn (Not Detect) Urine Cocaine Screen (Not Detect) U Marijuana (THC) Screen (Not Detect) Ethyl Alcohol < 10 mg/dL 09/08/23 09/08/23 Range/Units 16:12 16:16 WBC (4.8-10.8) X10*3/uL RBC (4.20-5.50) X10*6/uL Hgb (12.0-16.0) g/dl Hct (37.0-47.0) % MCV (80.0-98.0) fL MCH (27.0-33.0) pg MCHC (31.0-35.0) g/dl RDW (11.0-16.0) % Plt Count (160-400) X10*3/uL MPV (9.4-12.3) fL Immature Gran % (Auto) (0.0-0.4) % Neut % (Auto) (45-73) % Lymph % (Auto) (20-40) % Cass % (Auto) (2-11) % Eos % (Auto) (0-4) % Baso % (Auto) (0-2) % Lymph # (Auto) (1.2-4.9) X10*3/uL Cass # (Auto) (0.1-1.2) X10*3/uL Eos # (Auto) (0.0-0.4) X10*3/uL Baso # (Auto) (0.0-0.2) X10*3/uL Abs Immat Gran (auto) (0.00-0.03) X10*3/uL Absolute Neuts (auto) (2.0-8.3) x10*3/uL Absolute Nucleated RBC (0.0-0.012) X10*3/uL Nucleated RBC % (auto) (0.0-0.2) /100WBC Sodium (135-145) mmol/L Potassium (3.3-5.1) mmol/L Chloride (96-108) mmol/L Carbon Dioxide (22-29) mmol/L Anion Gap (12-20) BUN (9-16) mg/dL Creatinine (0.5-1.4) mg/dL Estim Creat Clear Calc Estimated GFR Random Glucose (60-115) mg/dL Lactic Acid (0.5-2.0) mmol/L Calcium (8.4-10.2) mg/dL Magnesium (1.6-2.6) mg/dL Total Bilirubin (0.0-1.0) mg/dL AST (5-31) U/L ALT (0-31) U/L Alkaline Phosphatase (39-117) U/L Total Creatine Kinase (26-140) U/L Troponin I High Sens (<3.5-17.0) ng/L Total Protein (6.5-8.0) g/dL Albumin (3.5-5.0) g/dL Urine Color Yellow Urine Appearance Cloudy Urine pH 5.0 (5.0-9.0) Ur Specific [place] 1.020 (1.005-1.025) Urine Protein Trace (Neg-Trace) mg/dL Urine Glucose (UA) Negative (Negative) mg/dL Urine Ketones Trace (Negative) mg/dL Urine Blood Negative (Negative) Urine Nitrite Negative (Negative) Ur Leukocyte Esterase Moderate (2+) H (Negative) Salicylates (15-30) mg/dL Urine Opiates Screen Not Detected (Not Detect) Urine Fentanyl Screen Not Detected (Not Detect) Acetaminophen (<30) mcg/mL Ur Barbiturates Screen Not Detected (Not Detect) Ur Phencyclidine Scrn Not Detected (Not Detect) Ur Amphetamines Screen Not Detected (Not Detect) U Benzodiazepines Scrn Not Detected (Not Detect) Urine Cocaine Screen Not Detected (Not Detect) U Marijuana (THC) Screen Not Detected (Not Detect) Ethyl Alcohol mg/dL Independent Interpretation I performed an independent interpretation of an: EKG ( Ventricular rate of 64, MD normal, QRS normal, QT/QTC normal.), Plain X-Ray and CT Scan Radiology Impression Discussion of test interpretation with radiology: I have reviewed the radiologist's reading. Critical Care Time Critical Care Time Critical Care Time: Yes Total Critical Care Time: 35 Attestation: I attest to this time spent taking care of the patient, obtaining history, physical, reviewing labs, imaging, speaking to my attending, speaking to specialist. Discharge Plan Discharge Clinical Impression: AMS (altered mental status), Physical deconditioning, Acute UTI Patient Disposition: Admitted As Inpatient
[2023-09-08 12:30] VITALS: BP 123/47; BP 130/88; PULSE 110; PULSE 66; RESP 14; TEMP 36.6; O2SAT 95; O2SAT 96; BMI 31.0
--- NOTE | 2023-09-08 13:08 | MHC.CLN ---
Pt 1 assist to bedside commode for urine sample. Unable to go at this time, will try again later.
--- NOTE | 2023-09-08 13:11 | MHC.EDTECH ---
Pt 1 assist to bedside commode to obtain urine sample. Pt unable to go at this time, will try again later.
[2023-09-08 14:37] VITALS: BP 105/36; PULSE 59; RESP 13; TEMP 36.7; O2SAT 96
--- NOTE | 2023-09-08 15:21 | PC.NURSE ---
fluids infusing at this time. pt denies any pain, resting quietly in room with call morrison within reach. pending imaging.
--- NOTE | 2023-09-08 15:22 | PC.NURSE ---
no blood pressure/labs to be drawn in left side due to dialysis fistula
--- NOTE | 2023-09-08 16:56 | PM.IMHP ---
History of Present Illness Date of Service: 09/08/23 Chief Complaint: fall, confusion An 87 years old lady with PMH of COPD, HTN, HLD, ESRD on HD (MWF) via LUE fistula who presents to the hospital with confusion and fall. She had multiple falls at home over the last few days. she is not the best historian but reports feels unsteady and easy to lose balance as she has tripped and fell. denies any associated chest pain, shortness of breath, cough, fever, palpitations, injuries but reports back pain that is chronic in nature. In ED blood work showed mild leukocytosis with possibe UTI. Needs dialysis. Admitted for further eval and management. Review of Systems Review of Systems: Yes all other systems are reviewed and are negative [facility] Medical History Generalized anxiety disorder Panic disorder Primary dysthymia late onset Chronic kidney disease (CKD) Bacteremia Acute hyperkalemia Weakness High cholesterol COPD (chronic obstructive pulmonary disease) Kidney disease HTN (hypertension) Social History Household Members: Family Housing: House Do you presently have visiting nurse or other home services: Yes Alcohol intake: never Patient Tobacco Use Status: Never used Tobacco Advance Directives: Yes Advance Directives on File: Yes Advance Directives Date on File: 08/26/21 service: No Current occupational status: retired Meds Allergies Allergy/AdvReac Type Severity Reaction Status Date / Time No Known Allergies Allergy Verified 08/16/21 15:17 Home Medications Medication Instructions Recorded Confirmed Last Taken Type aspirin 81 mg tablet,delayed 81 mg PO DAILY 01/24/23 07/24/23 07/23/23 History release fexofenadine 180 mg tablet 180 mg PO DAILY 01/24/23 07/24/23 07/23/23 History (Anastasiia Allergy) sevelamer carbonate 800 mg tablet 1 tab PO TID 01/24/23 09/08/23 07/23/23 History venlafaxine 150 mg tablet,extended 1 tab PO DAILY 01/24/23 07/24/23 07/23/23 History release 24 hr atorvastatin 40 mg tablet 40 mg PO DAILY 07/24/23 07/24/23 07/23/23 History propranolol 20 mg tablet 20 mg PO BID 07/24/23 07/24/23 07/23/23 History Physical Exam Vital Signs and Narrative: Vital Signs: Last Vital Signs Temp 98.0 F 09/08/23 14:37 Pulse 59 09/08/23 14:37 Resp 13 09/08/23 14:37 BP 105/36 L 09/08/23 14:37 Pulse Ox 96 09/08/23 14:37 O2 Del Method Room Air 09/08/23 14:37 BMI result Body Mass Index 31.0 Const: Other: Constitutional : Awake, interactive, not in distress Neck : Normal inspection, Supple Cardiovascular : RRR, no JVP, no lower extremity edema Respiratory : good bilateral air entry, no crackles, wheezes or rhonchi Gastrointestinal: soft, lax, Normal bowel sounds, Non tender Skin : Warm, Dry Vascular: Dialysis fistula LE with thrill Neurological : Alert & oriented to self and place, No focal deficit Results Labs 09/08/23 13:33 09/08/23 14:03 Labs: Laboratory Results - last 24 hr 09/08/23 09/08/23 09/08/23 13:33 14:03 16:01 MCV 101.9 H MCH 31.5 MCHC 30.9 L RDW 14.9 Plt Count 191 D MPV 9.4 Immature Gran % (Auto) 0.3 Neut % (Auto) 67.0 Lymph % (Auto) 18.3 L [place] % (Auto) 11.9 H Eos % (Auto) 2.1 Baso % (Auto) 0.4 Lymph # (Auto) 2.2 [place] # (Auto) 1.4 H Eos # (Auto) 0.3 Baso # (Auto) 0.1 Abs Immat Gran (auto) 0.04 H Absolute Neuts (auto) 8.1 Absolute Nucleated RBC 0.000 Nucleated RBC % (auto) 0.0 Anion Gap 15 Estim Creat Clear Calc 12.2 Estimated GFR 11 Random Glucose 100 Lactic Acid 1.8 Calcium 9.5 Magnesium 2.2 Total Bilirubin 0.4 AST 26 ALT 16 Alkaline Phosphatase 146 H Total Creatine Kinase 100 Total Protein 6.4 L Albumin 3.2 L Urine Color Urine Appearance Urine pH Ur Specific [place] Urine Protein Urine Glucose (UA) Urine Ketones Urine Blood Urine Nitrite Ur Leukocyte Esterase Urine RBC Urine WBC Ur Squamous Epith Cells Urine Bacteria Hyaline Casts Urine Yeast Salicylates < 5.0 L Urine Opiates Screen Urine Fentanyl Screen Acetaminophen < 17 Ur Barbiturates Screen Ur Phencyclidine Scrn Ur Amphetamines Screen U Benzodiazepines Scrn Urine Cocaine Screen U Marijuana (THC) Screen Ethyl Alcohol < 10 09/08/23 09/08/23 16:12 16:16 MCV MCH MCHC RDW Plt Count MPV Immature Gran % (Auto) Neut % (Auto) Lymph % (Auto) [place] % (Auto) Eos % (Auto) Baso % (Auto) Lymph # (Auto) [place] # (Auto) Eos # (Auto) Baso # (Auto) Abs Immat Gran (auto) Absolute Neuts (auto) Absolute Nucleated RBC Nucleated RBC % (auto) Anion Gap Estim Creat Clear Calc Estimated GFR Random Glucose Lactic Acid Calcium Magnesium Total Bilirubin AST ALT Alkaline Phosphatase Total Creatine Kinase Total Protein Albumin Urine Color Yellow Urine Appearance Cloudy Urine pH 5.0 Ur Specific [place] 1.020 Urine Protein Trace Urine Glucose (UA) Negative Urine Ketones Trace Urine Blood Negative Urine Nitrite Negative Ur Leukocyte Esterase Moderate (2+) H Urine RBC 11-20 H Urine WBC >50 H Ur Squamous Epith Cells 3-5 Urine Bacteria 4+ Hyaline Casts 11-20 Urine Yeast Present Salicylates Urine Opiates Screen Not Detected Urine Fentanyl Screen Not Detected Acetaminophen Ur Barbiturates Screen Not Detected Ur Phencyclidine Scrn Not Detected Ur Amphetamines Screen Not Detected U Benzodiazepines Scrn Not Detected Urine Cocaine Screen Not Detected U Marijuana (THC) Screen Not Detected Ethyl Alcohol Imaging Radiologist's Impressions: Impressions Abdomen/Pelvis CT 09/08/23 15:45 IMPRESSION: The absence of intravenous contrast and the absence of dedicated reconstructed images of the thoracolumbar spine limit evaluation of acute traumatic sequela. 1. Stable superior endplate compression deformity and anterosuperior corner fracture at L1. 2. Unchanged right posterior 12th rib fracture with callus formation, suggesting subacute to chronic age. 3. No discrete acute traumatic sequela accounting for the above-described limitations. 4. Mild diffuse bronchial wall thickening and scattered intrabronchial mucous secretions, correlate clinically for small airways disease. 5. Scattered sub-3 mm solid pulmonary nodules. According to the UPDATED 2017 Fleischner Society recommendations, the advised follow-up imaging for nodules <6mm in the upper lobes is not necessarily required in low-risk patients. In high-risk patients with a nodule in the upper lobe and/or demonstrating suspicious morphology, an optional CT follow-up at 12 months may be obtained. If stable at 12 months, no further follow-up is recommended. 6. Stable 6.5 cm homogeneous simple fluid attenuating cyst in the left adnexa dating back to baseline from 01/16/2023. In view of age of the patient (late postmenopausal) and size of the lesion, prompt pelvic ultrasound evaluation is recommended. Cervical Spine CT 09/08/23 15:45 IMPRESSION: Degenerative changes. No fracture seen. Degenerative changes at the temporomandibular joints. Question anterior subluxation or translocation of the left mandibular condyle with respect to the temporal bone. Clinical correlation recommended. Fleischner guidelines were followed. Chest CT 09/08/23 15:45 IMPRESSION: The absence of intravenous contrast and the absence of dedicated reconstructed images of the thoracolumbar spine limit evaluation of acute traumatic sequela. 1. Stable superior endplate compression deformity and anterosuperior corner fracture at L1. 2. Unchanged right posterior 12th rib fracture with callus formation, suggesting subacute to chronic age. 3. No discrete acute traumatic sequela accounting for the above-described limitations. 4. Mild diffuse bronchial wall thickening and scattered intrabronchial mucous secretions, correlate clinically for small airways disease. 5. Scattered sub-3 mm solid pulmonary nodules. According to the UPDATED 2017 Fleischner Society recommendations, the advised follow-up imaging for nodules <6mm in the upper lobes is not necessarily required in low-risk patients. In high-risk patients with a nodule in the upper lobe and/or demonstrating suspicious morphology, an optional CT follow-up at 12 months may be obtained. If stable at 12 months, no further follow-up is recommended. 6. Stable 6.5 cm homogeneous simple fluid attenuating cyst in the left adnexa dating back to baseline from 01/16/2023. In view of age of the patient (late postmenopausal) and size of the lesion, prompt pelvic ultrasound evaluation is recommended. Head CT 09/08/23 15:45 IMPRESSION: No acute intracranial pathology. Anterior position of the left mandibular condyle, question translocation. Degenerative changes at the temporomandibular joints. Clinical correlation recommended. No fracture. Assessment and Plan (1) Acute UTI: Status: Acute (2) Physical deconditioning: Status: Acute (3) ESRD (end stage renal disease) on dialysis: Status: Acute (4) Multiple falls: Status: Acute Plan An 87 years old lady with PMH of COPD, HTN, HLD, ESRD on HD (MWF) via LUE vistula who presents to the hospital with lightheadedness and falls at home. Toxic encephalopathy 2/2 UTI pending cultures treat with Ceftriaxone recurrent reorientation Falls 2/2 physical deconditioning, orthostatic hypotension check orthostatic vitals continue BP meds if orthostatic ok PT eval ESRD on HD Nephrology consult Dialysis done yesterday Mood disorder Continue bupropion, venlafaxine HTN Hold home meds HLD Continue statin Full Code DVT Prophylaxis: Heparin Patient will likely need 2 or more overnight hospital stay for falls , UTI and need of dialysis pending safe discharge plan. Time Spent With Patient Time: Total time managing care of this patient today ____ minutes. Quality Stroke Does the patient have a stroke diagnosis?: No VTE Prior VTE?: No VTE Risk Level:: Medical - moderate - high VTE Device Contraindication: Treatment Not Indicated VTE Drug Contraindication: N/A - Med Ordered
[2023-09-08] MEDS: cefTRIAXone sodium 1 GM in 0.9 % Sodium Chloride 50 ML IV (17:05)
--- NOTE | 2023-09-08 17:10 | PC.NURSE ---
straight cath obtained, urine sent. blood cultures/lactic sent. antibiotics hung and infusing at this time. call morrison within reach.
--- NOTE | 2023-09-08 17:38 | PHA.MEDREC ---
Pharmacy Consult ? Medication Reconciliation Pharmacy has completed the medication reconciliation. Spoke with patient granddaughter Helga to confirm medications. Diane Walter, PadminiD
[2023-09-08 19:21] VITALS: BMI 30.1
[2023-09-08 20:00] VITALS: BP 152/62; PULSE 75; RESP 18; TEMP 36.1; O2SAT 92
--- NOTE | 2023-09-08 22:50 | HO.SKINPHOTO ---
Location: left buttock Category: pressure Stage: II Length: Width: Depth: cm Location: Category: Stage: Length: Width: Depth: cm Location: Category: Stage: Length: Width: Depth: cm Location: Category: Stage: Length: Width: Depth: cm Location: Category: Stage: Length: Width: Depth: cm Location: Category: Stage: Length: Width: Depth: cm
[2023-09-09 03:13] VITALS: BP 134/62; PULSE 82; RESP 18; TEMP 36.1; O2SAT 98
[2023-09-09 07:30] LABS: Anion Gap 16 (12-20); Blood Urea Nitrogen 25 mg/dL (9-16); Calcium 9.4 mg/dL (8.4-10.2); Carbon Dioxide 22 mmol/L (22-29); Chloride 104 mmol/L (96-108); Creatinine Clr Calc Pharmacy 10.3; Estimated Glomerular Filt Rate 10; Glucose Random 65 mg/dL (60-115); Sodium 138 mmol/L (135-145)
[2023-09-09 07:31] VITALS: BP 143/63; PULSE 85; RESP 18; TEMP 36.2
--- NOTE | 2023-09-09 09:29 | MHC.CM.PN ---
Addendum entered by Margo De La Rosa 09/09/23 13:45: *BED* PENDING INSURANCE AUTH. [facility] WILL START AUTH PROCESS FOR POSSIBLE ADMISSION 09/10. CM WILL CONTINUE TO FOLLOW FOR ANY CHANGE IN DC PLAN/NEEDS. Addendum entered by Margo De La Rosa 09/09/23 13:44: P.T. HAS RECOMMENDED STR. PT IS SOMEWHAT CONFUSED AT THIS TIME. AMIRA JIMENEZ IS AGREEABLE TO THIS. [facility] (WHERE GETS DIALYSIS) HAS OFFERED A PE Original Note: IMM DELIVERED PT LIVES WITH GRANDDAUGHTER RASHID WHO IS HER CAREGIVER. PER RASHID, PT JUST GOT OUT OF REHAB AT [facility] LAST WEEK. PT/GRANDDAUGHTER WOULD NOT LIKE TO RETURN THERE AND TO RETURN BACK HOME WITH [facility] AND NEW VNA SERVICES. PER SON BARBARA(HCP)[phone], HE WAS UNHAPPY WITH THE CARE AT [facility]. PT ATTENDS HD M-W- AT [facility]. TRANSPORTATION IS THROUGH [facility]. PT USES [facility] FOR MOBILITY. FAMILY/PT UNSURE OF WHAT VNA THEY HAVE (NOT ACTIVE YET) REFERRALS SENT TO TRY AND DETERMINE. +HCP ON FILE PCP DR. SCHWARZ. DP: P.T. EVAL PENDING. GOAL FOR PT/FAMILY IS TO RETURN HOME WITH SERVICES. SON (HCP) FEELS PT MAY NEED LTC AT SOME POINT IN NEAR FUTURE BUT WILL NEED TO DISCUSS WITH PT/GRANDAUGHTER. WILL NEED BLS TRANSPORT. CM WILL CONTINUE TO FOLLOW FOR DC PLAN/NEEDS.
[2023-09-09 09:51] VITALS: BP 143/63; PULSE 85
[2023-09-09 10:01] VITALS: BMI 30.1
--- NOTE | 2023-09-09 10:11 | MHC.CLN ---
NUTRITION CONSULT FOR STAGE II PRESSURE INJURY TO LEFT BUTTOCK. DIET=2 GRAM SODIUM. ADDING GELATEIN HIGH PROTEIN GELATIN BID. PROVIDES 320 KCALS, 40 G PROTEIN. INCREASED PROTEIN NEEDS WITH PRESSURE INJURY AND HEMODIALYSIS. FOLLOW FOR INTAKE, LABS AND WOUND HEALING.
--- NOTE | 2023-09-09 12:51 | HO.PM.IMPN ---
Subjective Subjective Date of Service: 09/09/23 Interval History: Still confused , close to baseline Pending dialysis Cultures remain negative Review of Systems Review of Systems: Yes all other systems are reviewed and are negative Physical Exam Vital Signs: Vital Signs: Last Vital Signs Temp 97.2 F 09/09/23 07:31 Pulse 85 09/09/23 09:51 Resp 18 09/09/23 07:31 BP 143/63 H 09/09/23 09:51 Pulse Ox 98 09/09/23 03:13 O2 Del Method Room Air 09/09/23 03:13 BMI result Body Mass Index 30.1 Const: Other: Constitutional : Awake, interactive, not in distress Neck : Normal inspection, Supple Cardiovascular : RRR, no JVP, no lower extremity edema Respiratory : good bilateral air entry, no crackles, wheezes or rhonchi Gastrointestinal: soft, lax, Normal bowel sounds, Non tender Skin : Warm, Dry Vascular: Dialysis fistula LE with thrill Neurological : Alert & oriented to self and place, No focal deficit Objective Data Active Medications Acetaminophen (Acetaminophen 325 Mg Tablet) 650 mg PO Q6H PRN PRN Reason: Pain, Mild (Pain Scale 1-3) Heparin Sodium (Porcine) (Heparin Sodium,Porcine 5,000 Unit/Ml Vial) 5,000 unit SUBCUT Q12H [facility] Last Admin: 09/09/23 08:50 Dose: 5,000 unit Documented By: WOODY Ceftriaxone Sodium 1 gm/ (Sodium Chloride) 50 mls @ 100 mls/hr IV Q24H [facility] Last Infusion: 09/08/23 18:42 Dose: Infused Documented By: VENTURA Lorazepam (Lorazepam 0.5 Mg Tablet) 0.5 mg PO BEDTIME PRN PRN Reason: Insomnia Last Admin: 09/08/23 20:35 Dose: 0.5 mg Documented By: MSIAEL Nystatin (Nystatin Ointment 15 Gm Tube) 1 appl TOPICAL BID [facility]; Protocol Last Admin: 09/09/23 10:44 Dose: 1 appl Documented By: WOODY Ondansetron HCl (Ondansetron Hcl 4 Mg/2 Ml Vial) 4 mg IVPUSH Q8H PRN PRN Reason: Nausea and Vomiting Sodium Chloride (0.9 % Sodium Chloride Flush 3 Ml Syringe) 3 ml IVFLUSH QSHIFT [facility] Last Admin: 09/09/23 08:51 Dose: 3 ml Documented By: WOODY Labs 09/08/23 13:33 09/09/23 06:26 Labs: Laboratory Results - last 24 hr 09/08/23 09/08/23 09/08/23 13:33 14:03 16:01 MCV 101.9 H MCH 31.5 MCHC 30.9 L RDW 14.9 Plt Count 191 D MPV 9.4 Immature Gran % (Auto) 0.3 Neut % (Auto) 67.0 Lymph % (Auto) 18.3 L [place] % (Auto) 11.9 H Eos % (Auto) 2.1 Baso % (Auto) 0.4 Lymph # (Auto) 2.2 [place] # (Auto) 1.4 H Eos # (Auto) 0.3 Baso # (Auto) 0.1 Abs Immat Gran (auto) 0.04 H Absolute Neuts (auto) 8.1 Absolute Nucleated RBC 0.000 Nucleated RBC % (auto) 0.0 Hold Purple Top Anion Gap 15 Estim Creat Clear Calc 12.2 Estimated GFR 11 Random Glucose 100 Lactic Acid 1.8 Calcium 9.5 Magnesium 2.2 Total Bilirubin 0.4 AST 26 ALT 16 Alkaline Phosphatase 146 H Total Creatine Kinase 100 Total Protein 6.4 L Albumin 3.2 L Urine Color Urine Appearance Urine pH Ur Specific [place] Urine Protein Urine Glucose (UA) Urine Ketones Urine Blood Urine Nitrite Ur Leukocyte Esterase Urine RBC Urine WBC Ur Squamous Epith Cells Urine Bacteria Hyaline Casts Urine Yeast Salicylates < 5.0 L Urine Opiates Screen Urine Fentanyl Screen Acetaminophen < 17 Ur Barbiturates Screen Ur Phencyclidine Scrn Ur Amphetamines Screen U Benzodiazepines Scrn Urine Cocaine Screen U Marijuana (THC) Screen Ethyl Alcohol < 10 09/08/23 09/08/23 09/09/23 16:12 16:16 06:26 MCV MCH MCHC RDW Plt Count MPV Immature Gran % (Auto) Neut % (Auto) Lymph % (Auto) [place] % (Auto) Eos % (Auto) Baso % (Auto) Lymph # (Auto) [place] # (Auto) Eos # (Auto) Baso # (Auto) Abs Immat Gran (auto) Absolute Neuts (auto) Absolute Nucleated RBC Nucleated RBC % (auto) Hold Purple Top Anion Gap 16 Estim Creat Clear Calc 10.3 Estimated GFR 10 Random Glucose 65 Lactic Acid Calcium 9.4 Magnesium Total Bilirubin AST ALT Alkaline Phosphatase Total Creatine Kinase Total Protein Albumin Urine Color Yellow Urine Appearance Cloudy Urine pH 5.0 Ur Specific [place] 1.020 Urine Protein Trace Urine Glucose (UA) Negative Urine Ketones Trace Urine Blood Negative Urine Nitrite Negative Ur Leukocyte Esterase Moderate (2+) H Urine RBC 11-20 H Urine WBC >50 H Ur Squamous Epith Cells 3-5 Urine Bacteria 4+ Hyaline Casts 11-20 Urine Yeast Present Salicylates Urine Opiates Screen Not Detected Urine Fentanyl Screen Not Detected Acetaminophen Ur Barbiturates Screen Not Detected Ur Phencyclidine Scrn Not Detected Ur Amphetamines Screen Not Detected U Benzodiazepines Scrn Not Detected Urine Cocaine Screen Not Detected U Marijuana (THC) Screen Not Detected Ethyl Alcohol 09/09/23 06:50 MCV MCH MCHC RDW Plt Count MPV Immature Gran % (Auto) Neut % (Auto) Lymph % (Auto) [place] % (Auto) Eos % (Auto) Baso % (Auto) Lymph # (Auto) [place] # (Auto) Eos # (Auto) Baso # (Auto) Abs Immat Gran (auto) Absolute Neuts (auto) Absolute Nucleated RBC Nucleated RBC % (auto) Hold Purple Top SEE NOTE Anion Gap Estim Creat Clear Calc Estimated GFR Random Glucose Lactic Acid Calcium Magnesium Total Bilirubin AST ALT Alkaline Phosphatase Total Creatine Kinase Total Protein Albumin Urine Color Urine Appearance Urine pH Ur Specific [place] Urine Protein Urine Glucose (UA) Urine Ketones Urine Blood Urine Nitrite Ur Leukocyte Esterase Urine RBC Urine WBC Ur Squamous Epith Cells Urine Bacteria Hyaline Casts Urine Yeast Salicylates Urine Opiates Screen Urine Fentanyl Screen Acetaminophen Ur Barbiturates Screen Ur Phencyclidine Scrn Ur Amphetamines Screen U Benzodiazepines Scrn Urine Cocaine Screen U Marijuana (THC) Screen Ethyl Alcohol Microbiology Microbiology Results: Microbiology 09/08/23 Unknown Urine Culture - Preliminary Urine clean catch - Urine negro top Culture too young to evaluate. Assessment and Plan (1) Acute UTI: Status: Acute (2) Physical deconditioning: Status: Acute (3) AMS (altered mental status): Status: Acute (4) ESRD (end stage renal disease) on dialysis: Status: Acute Plan An 87 years old lady with PMH of COPD, HTN, HLD, ESRD on HD (MWF) via [place] who presents to the hospital with lightheadedness and falls at home. Toxic encephalopathy 2/2 UTI pending cultures treat with Ceftriaxone recurrent reorientation Falls 2/2 physical deconditioning, Hx orthostatic hypotension check orthostatics continue Propranolol PT rec STR ESRD on HD Nephrology consult Dialysis done yesterday Mood disorder Continue bupropion, venlafaxine HTN Hold home meds HLD Continue statin Full Code DVT Prophylaxis: Heparin Patient will likely needs overnight hospital stay for falls , UTI and need of dialysis pending safe discharge plan to SNF Time Spent With Patient Time: Total time managing care of this patient today ____ minutes. Quality Stroke Does the patient have a stroke diagnosis?: No VTE Prior VTE?: No VTE Risk Level:: Medical - moderate - high VTE Device Contraindication: Treatment Not Indicated VTE Drug Contraindication: N/A - Med Ordered
[2023-09-09] MEDS: cefTRIAXone sodium 1 GM in 0.9 % Sodium Chloride 50 ML IV (15:34)
[2023-09-09 15:39] VITALS: BP 132/59; PULSE 88; RESP 17; TEMP 36.3; O2SAT 94
[2023-09-09 19:43] VITALS: BP 127/86; PULSE 83; RESP 20; TEMP 36.6; O2SAT 98
[2023-09-09] MEDS: Propranolol HCL 20 MG TABLET PO (20:17)
[2023-09-09] MEDS: Heparin Sodium,Porcine 5,000 UNIT/ML VIAL 5000 UNIT SUBCUT (20:17)
[2023-09-09] MEDS: Sevelamer Carbonate Tablet 800 MG TABLET PO (20:17)
[2023-09-09] MEDS: Acetaminophen 325 MG TABLET 650 MG PO (20:18)
[2023-09-09] MEDS: LORazepam 0.5 MG TABLET PO (20:20)
[2023-09-10 04:00] VITALS: BP 175/74; PULSE 72; RESP 17; TEMP 36.6; O2SAT 95
[2023-09-10 05:50] VITALS: BP 138/57; PULSE 75
[2023-09-10 07:42] VITALS: BP 131/60; PULSE 84; RESP 20; TEMP 36.8; O2SAT 95
[2023-09-10] MEDS: Acetaminophen 325 MG TABLET 650 MG PO (07:44)
[2023-09-10] MEDS: Atorvastatin Calcium 40 MG TABLET PO (07:45)
[2023-09-10] MEDS: Propranolol HCL 20 MG TABLET PO (07:46)
[2023-09-10] MEDS: Venlafaxine HCl ER 150 MG CAP.ER.24H PO (07:46)
[2023-09-10] MEDS: Sevelamer Carbonate Tablet 800 MG TABLET PO ×2 (07:46→14:31)
[2023-09-10] MEDS: Aspirin Enteric Coated 81 MG TABLET.DR PO (07:46)
[2023-09-10] MEDS: buPROPion HCl XL 150 MG TAB.ER.24H PO (07:46)
[2023-09-10] MEDS: Heparin Sodium,Porcine 5,000 UNIT/ML VIAL 5000 UNIT SUBCUT (07:47)
[2023-09-10] MEDS: 0.9 % Sodium Chloride Flush 3 ML SYRINGE IVFLUSH ×2 (07:48)
--- NOTE | 2023-09-10 11:13 | HO.PM.IMPN ---
Subjective Subjective Date of Service: 09/10/23 Interval History: back to baseline Physical Exam Vital Signs: Vital Signs: Last Vital Signs Temp 98.2 F 09/10/23 07:42 Pulse 84 09/10/23 07:42 Resp 20 09/10/23 07:42 BP 131/60 09/10/23 07:42 Pulse Ox 95 09/10/23 07:42 O2 Del Method Room Air 09/10/23 07:42 BMI result Body Mass Index 30.1 Const: Other: Constitutional : Awake, interactive, not in distress Neck : Normal inspection, Supple Cardiovascular : RRR, no JVP, no lower extremity edema Respiratory : good bilateral air entry, no crackles, wheezes or rhonchi Gastrointestinal: soft, lax, Normal bowel sounds, Non tender Skin : Warm, Dry Vascular: Dialysis fistula LE with thrill Neurological : Alert & oriented to self and place, No focal deficit Objective Data Active Medications Acetaminophen (Acetaminophen 325 Mg Tablet) 650 mg PO Q6H PRN PRN Reason: Pain, Mild (Pain Scale 1-3) Last Admin: 09/10/23 07:44 Dose: 650 mg Documented By: WOODY Aspirin (Aspirin Enteric Coated 81 Mg Tablet.Dr) 81 mg PO DAILY [facility] Last Admin: 09/10/23 07:46 Dose: 81 mg Documented By: WOODY Atorvastatin Calcium (Atorvastatin Calcium 40 Mg Tablet) 40 mg PO DAILY [facility] Last Admin: 09/10/23 07:45 Dose: 40 mg Documented By: WOODY Bupropion HCl (Bupropion Hcl Xl 150 Mg Tab.Er.24h) 150 mg PO DAILY [facility] Last Admin: 09/10/23 07:46 Dose: 150 mg Documented By: WOODY Heparin Sodium (Porcine) (Heparin Sodium,Porcine 5,000 Unit/Ml Vial) 5,000 unit SUBCUT Q12H [facility] Last Admin: 09/10/23 07:47 Dose: 5,000 unit Documented By: WOODY Ceftriaxone Sodium 1 gm/ (Sodium Chloride) 50 mls @ 100 mls/hr IV Q24H [facility] Last Infusion: 09/09/23 16:52 Dose: Infused Documented By: WOODY Lorazepam (Lorazepam 0.5 Mg Tablet) 0.5 mg PO BEDTIME PRN PRN Reason: Insomnia Last Admin: 09/09/23 20:20 Dose: 0.5 mg Documented By: RUY Nystatin (Nystatin Ointment 15 Gm Tube) 1 appl TOPICAL BID [facility]; Protocol Last Admin: 09/10/23 07:52 Dose: 1 appl Documented By: WOODY Ondansetron HCl (Ondansetron Hcl 4 Mg/2 Ml Vial) 4 mg IVPUSH Q8H PRN PRN Reason: Nausea and Vomiting Propranolol HCl (Propranolol Hcl 20 Mg Tablet) 20 mg PO BID [facility]; Protocol Last Admin: 09/10/23 07:46 Dose: 20 mg Documented By: WOODY Sevelamer Carbonate (Sevelamer Carbonate Tablet 800 Mg Tablet) 800 mg PO TID [facility] Last Admin: 09/10/23 07:46 Dose: 800 mg Documented By: WOODY Sodium Chloride (0.9 % Sodium Chloride Flush 3 Ml Syringe) 3 ml IVFLUSH QSHIFT [facility] Last Admin: 09/10/23 07:48 Dose: 3 ml Documented By: WOODY Venlafaxine HCl (Venlafaxine Hcl Er 150 Mg Cap.Er.24h) 150 mg PO DAILY [facility] Last Admin: 09/10/23 07:46 Dose: 150 mg Documented By: WOODY Labs 09/08/23 13:33 09/09/23 06:26 Microbiology Microbiology Results: Microbiology 09/08/23 16:12 Blood Culture - Preliminary Blood - Venous No growth after 24 hours. 09/08/23 16:01 Blood Culture - Preliminary Blood - Venous No growth after 24 hours. 09/08/23 Unknown Urine Culture - Preliminary Urine clean catch - Urine negro top Culture too young to evaluate. Assessment and Plan (1) Acute UTI: Status: Acute (2) Physical deconditioning: Status: Acute (3) AMS (altered mental status): Status: Acute (4) ESRD (end stage renal disease) on dialysis: Status: Acute Plan 87 years old lady with PMH of COPD, HTN, HLD, ESRD on HD (MWF) via [facility] who presented to the hospital with lightheadedness and falls at home. acute metabolic encephalopathy 2/2 UTI pending cultures treat with Ceftriaxone recurrent reorientation Falls 2/2 physical deconditioning, Hx orthostatic hypotension PT rec STR ESRD on HD Nephrology consult Dialysis done yesterday Mood disorder Continue bupropion, venlafaxine HTN propranolol HLD Continue statin Full Code DVT Prophylaxis: Heparin reason for continued hospitalization:awaiting placement, urine cutlure Time Spent With Patient Time: Total time managing care of this patient today ____ minutes. Quality Stroke Does the patient have a stroke diagnosis?: No VTE Prior VTE?: No VTE Risk Level:: Medical - moderate - high VTE Device Contraindication: Treatment Not Indicated VTE Drug Contraindication: N/A - Med Ordered
--- NOTE | 2023-09-10 11:44 | CONS_ITS ---
DATE OF SERVICE: 09/09/2023 I was asked to see the patient to assist in evaluation and management of patient's dialysis needs in the setting of presenting to the hospital after a falling episode and feeling confused. SUMMARY: She is an 87-year-old ESRD patient, normally dialyzes Thursday, Thursday, Thursday using her AV fistula. She presented to the hospital after falling episode and feeling confused. Overall, she is feeling a bit better now. PAST MEDICAL HISTORY: Includes generalized anxiety disorder, panic disorder, ESRD, generalized weakness, COPD, and hypertension. MEDICATIONS: Her medications on admission are noted in the admitting notes. ALLERGIES: SHE HAS NO KNOWN DRUG ALLERGIES. FAMILY HISTORY: Noncontributory. REVIEW OF SYSTEMS: As noted above. PHYSICAL EXAMINATION: VITAL SIGNS: Blood pressure 108/50 with a heart rate in the 60s. She is afebrile. HEENT: Head is atraumatic and normocephalic. NECK: Supple. Mucous membranes moist. LUNGS: Clear. CARDIAC: Regular rate and rhythm without rub. ABDOMEN: Soft. EXTREMITIES: Showed a left upper extremity AV fistula with good bruit and thrill. LABORATORY DATA: Shows hemoglobin 11.7, hematocrit 37.9, white cell count of 12.1, sodium 130, potassium 4, chloride 104, bicarb 22. IMPRESSION: END-STAGE RENAL DISEASE PATIENT ADMITTED TO THE HOSPITAL WITH ALTERED MENTAL STATUS AND A FALLING EPISODE. 1. End-stage renal disease with dialyzer today. 2. Altered mental status. We will monitor this and see if it improves after dialysis. 3. Anemia. Hemoglobin is doing quite well. She does need EPO at this time. RECOMMENDATIONS: At this time include dialysis today and continue her usual medications. We will follow the patient with the team. MD IDALMIS Mark/PATRICIA / [phone]
--- NOTE | 2023-09-10 12:31 | P.DS_ITS ---
DS: Providers Provider Date of Service: 09/10/23 Date of admission: 09/08/23 16:51 Primary care physician: Joshua Schaeffer MD Consults: 09/08/23 16:51 Consult to Nephrology Routine Consulting Provider: Soto Ross Reason for consultation: Need of dialysis DS: Diagnosis Discharge Diagnosis (1) Acute UTI: Status: Acute (2) Physical deconditioning: Status: Acute (3) AMS (altered mental status): Status: Acute (4) ESRD (end stage renal disease) on dialysis: Status: Acute DS: Summary Hospital Course Hospital Course: from initial hpi: 87 years old lady with PMH of COPD, HTN, HLD, ESRD on HD (MWF) via [facility] fistula who presents to the hospital with confusion and fall. She had multiple falls at home over the last few days. she is not the best historian but reports feels unsteady and easy to lose balance as she has tripped and fell. denies any associated chest pain, shortness of breath, cough, fever, palpitations, injuries but reports back pain that is chronic in nature. In ED blood work showed mild leukocytosis with possibe UTI. Needs dialysis. Admitted for further eval and management. hospital course: Patient was admitted for acute metabolic encephalopathy secondary to urinary tract infection. She was treated with IV ceftriaxone and mental status returned to baseline. Urine cultures still pending at time of discharge she will be discharged on cefuroxime, culture should be followed up and antibiotics adjusted as needed. For her fall secondary to physical deconditioning and orthostatic hypotension as well as urinary tract infection she was seen by physical therapy recommended short-term rehab at [facility] facility. For end-stage renal disease she was continued on hemodialysis. For mood disorder was continue bupropion and venlafaxine. For hypertension was continue propranolol. For hyperlipidemia was continue on statin. Patient is back to baseline will be discharged home. Time Spent with Patient Time attestation: Total time managing care of this patient today ____ minutes. Discharge coordination time: Greater than 30 minutes Quality: Safe Use of Opioids Does Pt have an Active Cancer Diagnosis on the Problem List?: No Quality: Stroke Does the patient have a stroke diagnosis?: No Physical Exam Vital Signs: Vital Signs: Last Vital Signs Temp 98.2 F 09/10/23 07:42 Pulse 84 09/10/23 07:42 Resp 20 09/10/23 07:42 BP 131/60 09/10/23 07:42 Pulse Ox 95 09/10/23 07:42 O2 Del Method Room Air 09/10/23 07:42 BMI result Body Mass Index 30.1 Const: Other: Constitutional : Awake, interactive, not in distress Neck : Normal inspection, Supple Cardiovascular : RRR, no JVP, no lower extremity edema Respiratory : good bilateral air entry, no crackles, wheezes or rhonchi Gastrointestinal: soft, lax, Normal bowel sounds, Non tender Skin : Warm, Dry Vascular: Dialysis fistula LE with thrill Neurological : Alert & oriented to self and place, No focal deficit DS: Data Data Completed and Pending Completed studies during hospitalization [Text1]: Procedures Performance of Urinary Filtration, Intermittent, Less than 6 Hours Per Day (07/24/23) Labs on day of discharge: Preliminary micro results at discharge 09/08/23 Unknown Urine Culture - Preliminary Urine clean catch - Urine negro top Culture in progress. 09/08/23 16:12 Blood Culture - Preliminary Blood - Venous No growth after 24 hours. 09/08/23 16:01 Blood Culture - Preliminary Blood - Venous No growth after 24 hours. Discharge Plan Discharge Anticipated Discharge Date/Time: 09/10/23 12:25 Patient Disposition: Xfer SNF Discharge Diagnosis: uti [facility] [Outside] - 1 Week Joshua Schaeffer MD [Primary Care Provider] - 1 Week Discharge Medications: New cefuroxime axetil 250 mg tablet 500 mg PO BID Qty: 10 0RF Continued bupropion HCl 150 mg tablet extended release 24 hr 150 mg PO QAM Qty: 30 1RF (DME) T.E.D. Knee [id number]-Buee Misc See Rx Instructions .Route Qty: 2 0RF Rx Instructions: As directed venlafaxine 150 mg tablet extended release 24hr 1 tab PO DAILY aspirin 81 mg Tablet,Delayed Release (Dr/Ec) 81 mg PO DAILY sevelamer carbonate 800 mg tablet 1 tab PO TID fexofenadine [Anastasiia Allergy] 180 mg Tablet 180 mg PO DAILY atorvastatin 40 mg tablet 40 mg PO DAILY propranolol 20 mg tablet 20 mg PO BID ondansetron 4 mg Tablet,Disintegrating 4 mg PO Q6H PRN (Reason: Nausea) lorazepam 0.5 mg tablet 0.5 mg PO DAILY@1700 Rx Instructions: 1 TAB BEDTIME NEEDED MAY TAKE ADDITIONAL 1 TAB DAILY PRIOR TO DIALYSIS tramadol 50 mg Tablet 50 mg PO Q6H PRN (Reason: Pain) Discharge Orders: Discharge Order (Routine); Ordered 09/10/23 Ordered By: Erick Mari Diet: Advance to usual diet Activity on Discharge: As tolerated Stand Alone Forms: Patient Portal Discharge page Care Plan Goals: recovery Health Concerns: uti Plan of Treatment: 5 more days ceftin, follow up cutlures, adjust as neccesary, orthostatic precautions Assessment: see above
--- NOTE | 2023-09-10 12:32 | MHC.CM.PN ---
PATIENT TO TRANSFER TO [facility] FOR 16:00 RN, UNIT, AND SON, BARBARA [phone] AWARE OF PLAN. IMM 09/09 PREVIOUSLY COMPLETED
[2023-09-10] MEDS: cefTRIAXone sodium 1 GM in 0.9 % Sodium Chloride 50 ML IV (14:30)
[2023-09-10 15:19] VITALS: BP 130/60; PULSE 67; RESP 16; TEMP 36.9; O2SAT 98
== END 2023-09-10 16:52 | disposition skilled nursing facility (03) | DRG 689 ==
LOC: HO.ED 16:37 → HO.EDOVER 16:59 → HO.S3 17:45
PROVIDERS: Admitting Provider Student in an Organized Health Care Education/Training Program; Emergency Provider Student in an Organized Health Care Education/Training Program; PCP Internal Medicine; Visit Provider Internal Medicine
DX: N39.0 Urinary tract infection, site not specified (principal); G92.8 Other toxic encephalopathy; N18.6 End stage renal disease; I12.0 Hypertensive chronic kidney disease with stage 5 chronic kidney disease or end stage renal disease; D63.1 Anemia in chronic kidney disease; E78.00 Pure hypercholesterolemia, unspecified; J44.9 Chronic obstructive pulmonary disease, unspecified; F41.1 Generalized anxiety disorder; F41.0 Panic disorder [episodic paroxysmal anxiety]; I95.1 Orthostatic hypotension; Z99.2 Dependence on renal dialysis; Z79.82 Long term (current) use of aspirin; Z79.899 Other long term (current) drug therapy
CPT/HCPCS: 36415; 70450; 71250; 72125; 74176; 80048; 80053; 80143; 80179; 80307; 81001; 82550; 83605; 83735; 84484; 85025; 87040; 87086; 87088; 90999; 93005; 97162; 99285; J0696; J1643

== ENCOUNTER → 2023-09-08 16:51 | Outpatient (BNV) | payer MEDICARE, MEDICAID, SELFPAY | PROVIDERS: Admitting Provider Student in an Organized Health Care Education/Training Program; Emergency Provider Student in an Organized Health Care Education/Training Program; PCP Internal Medicine; Visit Provider Student in an Organized Health Care Education/Training Program | DX: N18.6 End stage renal disease (principal); Z99.2 Dependence on renal dialysis; N39.0 Urinary tract infection, site not specified; R53.81 Other malaise; R41.82 Altered mental status, unspecified | CPT/HCPCS: 99223; 99233; 99239 ==

== ENCOUNTER 2023-11-29 11:20 | Emergency (ER) | payer MEDICARE, MEDICAID, SELFPAY ==
--- NOTE | ~2023-11-29 | XR_ITS ---
EXAMINATION: XR CHEST CLINICAL INFORMATION: Weakness COMPARISON: Multiple priors with the last chest x-ray of 08/12/[address] of 09/08/2023 TECHNIQUE: Frontal view of the chest was obtained. FINDINGS: Cardiomediastinal silhouette is stable with normal cardiac size. Aortic arch calcifications are redemonstrated. Lungs are mildly hypoexpanded. No focal consolidation, changes of congestion or pleural effusions are seen. No pneumothorax. Vascular stent in the axillary region is redemonstrated. XR/XR chest 1V IMPRESSION: No acute pulmonary process.
--- NOTE | 2023-11-29 11:24 | ECG_ITS ---
Test Reason : WEAKNESS Blood Pressure : / mmHG Vent. Rate : 059 BPM Atrial Rate : 059 BPM P-R Int : 232 ms QRS Dur : 080 ms QT Int : 414 ms P-R-T Axes : 024 026 068 degrees QTc Int : 409 ms Sinus bradycardia with 1st degree A-V block Otherwise normal ECG When compared with ECG of 08-SEP-2023 12:33, No significant change was found Referred By: Gretel Vazquez Electronically Signed By:SPENCER MORATAYA
[2023-11-29 11:26] VITALS: BP 141/50; BP 150/92; PULSE 59; PULSE 76; RESP 18; TEMP 37.2; O2SAT 96; O2SAT 99; BMI 30.6
--- NOTE | 2023-11-29 11:29 | ED.WEAKNESS ---
HPI - Weakness General Chief complaint: Urogenital-Female Stated complaint: WEAKNESS X3 DAYS,H/O UTI'S PER EMS Source: patient and old records reviewed Mode of arrival: EMS Limitations: altered mental status History of Present Illness HPI Narrative: 88 yo female with PMH of COPD, HTN, HLD, ESRD on HD goes MWF has not missed any sessions notes 3 days of malaise, weakness, urinary frequency and mild nausea, no pain, confusion or vomiting. Has dysuria worried she has UTI. Hx of UTI in past with similar symptoms. MD Complaint: generalized weakness Onset (ago): day(s) (3) Duration: constant Location: generalized Migration: none Severity: mild Relieving factors: none Exacerbating factors: movement Context: other (hx of UTI) Associated symptoms: other (malaise, dysuri) Related Data Home Medications Medication Instructions Recorded Confirmed aspirin 81 mg tablet,delayed 81 mg PO DAILY 01/24/23 09/08/23 release fexofenadine 180 mg tablet 180 mg PO DAILY 01/24/23 09/08/23 (Anastasiia Allergy) sevelamer carbonate 800 mg tablet 1 tab PO TID 01/24/23 09/08/23 venlafaxine 150 mg tablet,extended 1 tab PO DAILY 01/24/23 09/08/23 release 24 hr atorvastatin 40 mg tablet 40 mg PO DAILY 07/24/23 09/08/23 propranolol 20 mg tablet 20 mg PO BID 07/24/23 09/08/23 lorazepam 0.5 mg tablet 0.5 mg PO DAILY@1700 09/08/23 09/08/23 ondansetron 4 mg disintegrating 4 mg PO Q6H PRN Nausea 09/08/23 09/08/23 tablet tramadol 50 mg tablet 50 mg PO Q6H PRN Pain 09/08/23 09/08/23 Previous Rx's Medication Instructions Recorded compr.stocking,knee,long,small #2 ea 08/20/21 ([facility] [place] cefuroxime axetil 250 mg tablet 500 mg (2 x 250 mg) PO BID #10 tabs 09/10/23 bupropion HCl 150 mg 24 hr tablet, 150 mg PO QAM #30 tabs 11/17/23 extended release cefuroxime axetil 250 mg tablet 250 mg PO Q24H 6 days #6 tabs 11/29/23 Allergies Allergy/AdvReac Type Severity Reaction Status Date / Time No Known Allergies Allergy Verified 08/16/21 15:17 Review of Systems Review of Systems: Constitutional : No Fever, No Chills, No Fatigue ENT/Mouth : No sore throat, No Rhinorrhea Eyes: No Eye Pain, No Swelling, No Redness Cardiovascular : No Chest Pain, No SOB, No Dyspnea on Exertion Respiratory : No Cough, No Sputum Gastrointestinal : No Nausea, No Vomiting, No Diarrhea, No abdominal Pain Genitourinary : pos Dysuria, pos Urinary Frequency, No Hematuria, Musculoskeletal : No joint pain, No Myalgias, No Joint Swelling Skin : No Skin Lesions, No rash Neuro : pos Weakness, No Numbness, No Dizziness, no Headache Psych : No Anxiety/Panic, No Depression Heme/Lymph: No Bruising, No Bleeding,No Lymphadenopathy Endocrine : No Polyuria, No Polydipsia All other systems reviewed and are negative [facility] Past Medical History Attestation statement: The following information was validated with the patient. Source: old records reviewed Medical History Generalized anxiety disorder Panic disorder Primary dysthymia late onset Chronic kidney disease (CKD) Bacteremia Acute hyperkalemia Weakness High cholesterol COPD (chronic obstructive pulmonary disease) Kidney disease HTN (hypertension) Social History Social History Household Members: Family Housing: House Do you presently have visiting nurse or other home services: No Alcohol intake: never Patient Tobacco Use Status: Never used Tobacco Smoked in Last 30 Days: No Use of substances other than those prescribed or required for medical reasons: No Advance Directives: Yes Advance Directives on File: Yes Advance Directives Date on File: 08/26/21 service: No Current occupational status: retired Physical Exam Vital Signs: Vital Signs: Last Vital Signs Temp 98.9 F 11/29/23 11:48 Pulse 59 11/29/23 11:48 Resp 18 11/29/23 11:48 BP 141/50 H 11/29/23 11:48 Pulse Ox 99 11/29/23 11:48 O2 Del Method Room Air 11/29/23 11:48 BMI result Body Mass Index 30.6 Appearance: Alert. Oriented X3. No acute distress. Eyes: Pupils equal, round and reactive to light. ENT: Pharynx normal. Neck: Normal inspection. Neck supple. CVS: Normal heart rate and rhythm. Pulses normal. Respiratory: No respiratory distress. Breath sounds normal. Abdomen: Soft and nontender. Skin: Skin warm and dry. pale skin color. Normal skin turgor. Extremities: No lower extremity edema. No calf ttp + thrill LUE AVF Neuro: Oriented X 3. No motor deficit. No sensory deficit. Medical Decision Making Medical Decision Making [facility] Narrative: 88 yo female with PMH of COPD, HTN, HLD, ESRD on HD goes MWF has not missed any sessions at this time not toxic, no fevers, no vomiting, no abdominal pain - she is alert and oriented x 3. Will obtain EKG, basic labs, and UA. Differential Diagnosis Differential Diagnoses: The differential diagnosis associated with the presentation includes viral syndrome, UTI, anemia, dehydration Admission/Observation Consideration of admission/observation: Escalation of care including admission/observation considered labs reassuring no hallucinations + UA will start on abx and DC home not vomiting Lab Data [facility] Lab Attestation statement: I reviewed the patient's lab results. 11/29/23 11:45 11/29/23 11:45 Labs: Lab Results 11/29/23 11/29/23 Range/Units 11:45 14:49 WBC 6.7 (4.8-10.8) X10*3/uL RBC 3.79 L (4.20-5.50) X10*6/uL Hgb 12.0 (12.0-16.0) g/dl Hct 38.8 (37.0-47.0) % MCV 102.4 H (80.0-98.0) fL MCH 31.7 (27.0-33.0) pg MCHC 30.9 L (31.0-35.0) g/dl RDW 14.4 (11.0-16.0) % Plt Count 165 (160-400) X10*3/uL MPV 9.7 (9.4-12.3) fL Immature Gran % (Auto) 0.3 (0.0-0.4) % Neut % (Auto) 64.7 (45-73) % Lymph % (Auto) 20.6 (20-40) % [place] % (Auto) 8.3 (2-11) % Eos % (Auto) 5.3 H (0-4) % Baso % (Auto) 0.8 (0-2) % Lymph # (Auto) 1.4 (1.2-4.9) X10*3/uL [place] # (Auto) 0.6 (0.1-1.2) X10*3/uL Eos # (Auto) 0.4 (0.0-0.4) X10*3/uL Baso # (Auto) 0.1 (0.0-0.2) X10*3/uL Abs Immat Gran (auto) 0.02 (0.00-0.03) X10*3/uL Absolute Neuts (auto) 4.3 (2.0-8.3) x10*3/uL Absolute Nucleated RBC 0.000 (0.0-0.012) X10*3/uL Nucleated RBC % (auto) 0.0 (0.0-0.2) /100WBC Sodium 137 (135-145) mmol/L Potassium 4.9 D (3.3-5.1) mmol/L Chloride 102 (96-108) mmol/L Carbon Dioxide 25 (22-29) mmol/L Anion Gap 15 (12-20) BUN 36 H (9-16) mg/dL Creatinine 5.47 H* (0.5-1.4) mg/dL Estim Creat Clear Calc 8.1 Estimated GFR 7 Random Glucose 116 H (60-115) mg/dL Calcium 9.3 (8.4-10.2) mg/dL Magnesium 2.2 (1.6-2.6) mg/dL Total Bilirubin 0.4 (0.0-1.0) mg/dL Direct Bilirubin 0.1 (0.0-0.5) mg/dL AST 22 (5-31) U/L ALT 16 (0-31) U/L Alkaline Phosphatase 97 (39-117) U/L Ammonia 26 (13-55) umol/L Troponin I High Sens 7.8 D (<3.5-17.0) ng/L Total Protein 6.4 L (6.5-8.0) g/dL Albumin 3.5 (3.5-5.0) g/dL Lipase 18 (8-78) U/L Procalcitonin 0.22 ng/mL Urine Color Yellow Urine Appearance Clear Urine pH 7.5 (5.0-9.0) Ur Specific [place] 1.015 (1.005-1.025) Urine Protein 100 (2+) H (Neg-Trace) mg/dL Urine Glucose (UA) 100 H (Negative) mg/dL Urine Ketones Negative (Negative) mg/dL Urine Blood Negative (Negative) Urine Nitrite Negative (Negative) Ur Leukocyte Esterase Small (1+) H (Negative) Urine RBC 0-2 (0-2) /HPF Urine WBC 11-20 H (0-5) /HPF Ur Squamous Epith Cells 6-10 (0-2) /HPF Urine Bacteria 1+ (None Seen) Hyaline Casts 0-2 (0-2) /LPF Independent Interpretation I performed an independent interpretation of an: EKG and Plain X-Ray Interpretation: Rate: 59 Rhythm: sinus bradycardia with 1st degree AVB [place]: normal Normal P waves. Normal CARLOS. Normal QRS complex. ST T wave : no RAYO, flat t wave aVL qTC: 409 prior studies: no acute ischemia The study has been interpreted contemporaneously by me. . Radiology Impression Discussion of test interpretation with radiology: I have reviewed the radiologist's reading. External Record Review External record reviewed: Inpatient record Prescription Management I considered prescription management with: Antibiotic Discharge Plan Discharge Clinical Impression: Acute UTI Patient Disposition: Home, Self-Care Instructions: Urinary Tract Infection in Women (ED) Additional Instructions: take the antibiotic after dialysis - take it every 24 hours return for fevers, vomiting, confusion, worsening symptoms or any other concerns. no covid/flu/rsv Prescriptions: New cefuroxime axetil 250 mg tablet 250 mg PO Q24H 6 Days Qty: 6 0RF No Action bupropion HCl 150 mg tablet extended release 24 hr 150 mg PO QAM Qty: 30 1RF (DME) T.E.D. Knee Jlsuis-O-Jnzt Misc See Rx Instructions .Route Qty: 2 0RF Rx Instructions: As directed venlafaxine 150 mg tablet extended release 24hr 1 tab PO DAILY aspirin 81 mg Tablet,Delayed Release (Dr/Ec) 81 mg PO DAILY sevelamer carbonate 800 mg tablet 1 tab PO TID fexofenadine [Anastasiia Allergy] 180 mg Tablet 180 mg PO DAILY atorvastatin 40 mg tablet 40 mg PO DAILY propranolol 20 mg tablet 20 mg PO BID ondansetron 4 mg Tablet,Disintegrating 4 mg PO Q6H PRN (Reason: Nausea) lorazepam 0.5 mg tablet 0.5 mg PO DAILY@1700 Rx Instructions: 1 TAB BEDTIME NEEDED MAY TAKE ADDITIONAL 1 TAB DAILY PRIOR TO DIALYSIS tramadol 50 mg Tablet 50 mg PO Q6H PRN (Reason: Pain) cefuroxime axetil 250 mg tablet 500 mg PO BID Qty: 10 0RF
[2023-11-29 11:48] VITALS: BP 141/50; PULSE 59; RESP 18; TEMP 37.2; O2SAT 99
[2023-11-29 11:50] LABS: MANUAL DIFF FLAG NO
[2023-11-29 11:54] LABS: Basophils Absolute Auto 0.1 X10*3/uL (0.0-0.2); Basophils Percent Auto 0.8 % (0-2); Eosinophils Absolute Auto 0.4 X10*3/uL (0.0-0.4); Eosinophils Percent Auto 5.3 % (0-4); Hematocrit 38.8 % (37.0-47.0); Imm Gran Abs Auto 0.02 X10*3/uL (0.00-0.03); Imm Gran Pct Auto 0.3 % (0.0-0.4); Lymphocytes Absolute Auto 1.4 X10*3/uL (1.2-4.9); Lymphocytes Percent Auto 20.6 % (20-40); Mean Corpuscular HGB Conc 30.9 g/dl (31.0-35.0); Mean Corpuscular Hemoglobin 31.7 pg (27.0-33.0); Mean Corpuscular Volume 102.4 fL (80.0-98.0); Mean Platelet Volume 9.7 fL (9.4-12.3); Monocytes Absolute Auto 0.6 X10*3/uL (0.1-1.2); Monocytes Percent Auto 8.3 % (2-11); Neutrophils Absolute Auto 4.3 x10*3/uL (2.0-8.3); Neutrophils Percent Auto 64.7 % (45-73); Platelet Count 165 X10*3/uL (160-400); Red Blood Count 3.79 X10*6/uL (4.20-5.50); Red Cell Distribution Width 14.4 % (11.0-16.0); White Blood Count 6.7 X10*3/uL (4.8-10.8)
[2023-11-29 12:03] LABS: Ammonia 26 umol/L (13-55)
[2023-11-29 12:18] LABS: Troponin-I High Sensitivity 7.8 ng/L (<3.5-17.0)
[2023-11-29 12:22] LABS: Alanine Aminotransferase 16 U/L (0-31); Albumin Level 3.5 g/dL (3.5-5.0); Alkaline Phosphatase 97 U/L (39-117); Anion Gap 15 (12-20); Aspartate Amino Transferase 22 U/L (5-31); Bilirubin Direct 0.1 mg/dL (0.0-0.5); Bilirubin Total 0.4 mg/dL (0.0-1.0); Blood Urea Nitrogen 36 mg/dL (9-16); Calcium 9.3 mg/dL (8.4-10.2); Carbon Dioxide 25 mmol/L (22-29); Chloride 102 mmol/L (96-108); Creatinine Clr Calc Pharmacy 8.1; Estimated Glomerular Filt Rate 7; Glucose Random 116 mg/dL (60-115); Lipase 18 U/L (8-78); Magnesium 2.2 mg/dL (1.6-2.6); Potassium 4.9 mmol/L (3.3-5.1); Sodium 137 mmol/L (135-145); Total Protein 6.4 g/dL (6.5-8.0)
[2023-11-29 12:32] LABS: Procalcitonin 0.22 ng/mL
[2023-11-29 14:56] LABS: Appearance Urine Clear; Color Urine Yellow; Glucose Urine UA 100 mg/dL (Negative); Leukocyte Esterase Urine Small (1+) (Negative); Nitrite Urine Negative (Negative); PH 7.5 (5.0-9.0); Specific Gravity - Urine 1.015 (1.005-1.025); UMIC TRIGGER UACC YES; Urine Blood Negative (Negative); Urine Ketones Negative (Negative); Urine Protein 100 (2+) mg/dL (Neg-Trace)
[2023-11-29 15:01] LABS: Bacteria Urine 1+ (None Seen); Hyaline Casts Urine 0-2 /LPF (0-2); RBC Urine 0-2 /HPF (0-2); UACC Culture Trigger YES
[2023-11-29] MEDS: cefuroxime axetiL 250 MG TABLET PO (16:38)
== END 2023-11-29 17:15 | disposition home or self-care (01) ==
PROVIDERS: Emergency Provider Emergency Medicine
DX: N39.0 Urinary tract infection, site not specified (principal); I12.0 Hypertensive chronic kidney disease with stage 5 chronic kidney disease or end stage renal disease; N18.6 End stage renal disease; J44.9 Chronic obstructive pulmonary disease, unspecified; Z99.2 Dependence on renal dialysis
CPT/HCPCS: 36415; 51701; 71045; 80048; 80076; 81001; 82140; 83690; 83735; 84145; 84484; 85025; 87040; 87086; 93005; 99283; 99285

== ENCOUNTER → 2023-11-29 11:24 | Outpatient (BNV) | payer MEDICARE, MEDICAID, SELFPAY | PROVIDERS: Emergency Provider Emergency Medicine; Visit Provider Internal Medicine | DX: R00.1 Bradycardia, unspecified (principal); I44.0 Atrioventricular block, first degree | CPT/HCPCS: 93010 ==

== ENCOUNTER 2023-12-01 07:56 | Inpatient (IN) | payer MEDICARE, MEDICAID, SELFPAY ==
--- NOTE | ~2023-12-01 | CT_ITS ---
EXAMINATION: CT HEAD WITHOUT CONTRAST CLINICAL INFORMATION: Altered mental status. COMPARISON: 09/08/2023. TECHNIQUE: Contiguous axial imaging was performed from the skull base to vertex without intravenous administration of contrast. This CT examination was performed using dose optimization techniques as appropriate, variously including the following: *Automated exposure control *Adjustment of mA and/or kV according to patient size (this includes techniques or standardized protocols for targeted exams where dose is matched to indication/reason for exam; i.e. extremities or head) *Use of iterative reconstruction technique DLP: 689 mGy-cm FINDINGS: No intracranial hemorrhage, extra-axial surface collection, focal mass effect or midline shift. The negro-white matter differentiation is maintained. No evidence of an acute major vascular territory infarction. There is atherosclerotic calcification of cavernous carotid arteries. The mild patchy hypoattenuation within supratentorial white matter is compatible with sequela of mild microangiopathy. There is mild parenchymal volume loss with commensurate prominence of ventricles and sulci; no hydrocephalus. The cerebellar tonsils are in normal position. Calvarium is intact. There is hyperostosis frontalis interna. The visualized paranasal sinuses and mastoid air cells are well aerated. Chronic degenerative change with subchondral cyst of the mandibular condyle at the left temporomandibular joint. Prior ocular lens extractions. CT/CT head/brain wo IV con IMPRESSION: No acute intracranial pathology compared to 09/08/2023.
--- NOTE | ~2023-12-01 | XR_ITS ---
EXAMINATION: XR CHEST CLINICAL INFORMATION: Weakness COMPARISON: Chest x-ray November 29, 2023 TECHNIQUE: Frontal view of the chest was obtained. FINDINGS: Cardiac silhouette is normal in size. Atherosclerotic disease of the aortic arch. The lungs are well aerated. There is no lobar consolidation. No pleural effusion or pneumothorax. Vascular stent of the left axilla. XR/XR chest 1V IMPRESSION: No acute pulmonary pathology.
[2023-12-01 08:01] VITALS: BP 130/62; PULSE 66; O2SAT 98; BMI 52.3
[2023-12-01 08:07] VITALS: BP 131/47; PULSE 64; RESP 11; TEMP 36.9; O2SAT 95
--- NOTE | 2023-12-01 08:36 | PC.NURSE ---
assumed care of pt around 0800. pt comes from home for increased confusion per pt's granddaughter. pt changed over to hospital attire. resting quietly on stretcher in no apparent distress. call morrison within pt reach. rr even/unlabored. plan of care ongoing.
--- NOTE | 2023-12-01 08:40 | ED_ITS ---
HPI - Female Genitourinary General Chief complaint: Urogenital-Female Stated complaint: SEEN ON THURSDAY FOR UTI,DID'NT CIGARETTE [employer]S PER EMS Time Seen by Provider: 12/01/23 08:40 History of Present Illness HPI Narrative: The patient is an 88-year-old female who lives with her granddaughter. The patient is a dialysis patient. The patient does dialysis Thursday, Thursday, Thursday. According to the granddaughter the patient has not been herself for about 5 days. The patient has seemed weaker and more confused and less steady on her feet. The patient was brought to the hospital 2 days ago on Thursday and was thought to possibly have a urinary tract infection. She was given a dose of cefuroxime 2 days ago on Thursday and discharged with a prescription for additional cefuroxime. Yesterday was new and the pharmacy was closed. Therefore the patient did not receive a dose of antibiotics yesterday although the patient did go to her dialysis appointment. This morning the patient still seemed very confused and weak and unsafe to move around and so the family called 911 and brought the patient back to the emergency room. The patient is confused and seems quite demented. She denies any complaints and she is unable to add to her history. I have spoken to the granddaughter Helga and to the patient's brother Darion (he is the healthcare proxy). The patient has apparently been home from a rehab for about a month. At this point the granddaughter does not feel that she can safely care for the patient at home because the patient seems to be at high risk of falling. There has been no fever. No vomiting. Related Data Home Medications Medication Instructions Recorded Confirmed aspirin 81 mg tablet,delayed 81 mg PO DAILY 01/24/23 09/08/23 release fexofenadine 180 mg tablet 180 mg PO DAILY 01/24/23 09/08/23 (Anastasiia Allergy) sevelamer carbonate 800 mg tablet 1 tab PO TID 01/24/23 09/08/23 venlafaxine 150 mg tablet,extended 1 tab PO DAILY 01/24/23 09/08/23 release 24 hr atorvastatin 40 mg tablet 40 mg PO DAILY 07/24/23 09/08/23 propranolol 20 mg tablet 20 mg PO BID 07/24/23 09/08/23 lorazepam 0.5 mg tablet 0.5 mg PO DAILY@1700 09/08/23 09/08/23 ondansetron 4 mg disintegrating 4 mg PO Q6H PRN Nausea 09/08/23 09/08/23 tablet tramadol 50 mg tablet 50 mg PO Q6H PRN Pain 09/08/23 09/08/23 Previous Rx's Medication Instructions Recorded compr.stocking,knee,long,small #2 ea 08/20/21 (T.E.D. Knee [facility] [place]) cefuroxime axetil 250 mg tablet 500 mg (2 x 250 mg) PO BID #10 tabs 09/10/23 bupropion HCl 150 mg 24 hr tablet, 150 mg PO QAM #30 tabs 11/17/23 extended release cefuroxime axetil 250 mg tablet 250 mg PO Q24H 6 days #6 tabs 11/29/23 Allergies Allergy/AdvReac Type Severity Reaction Status Date / Time No Known Allergies Allergy Verified 08/16/21 15:17 Review of Systems 2 Review of Systems: Yes all other systems are reviewed and are negative PMFSH Past Medical History Onset Date is defined in the Problem List Problems that require an onset date and time if occurred within 24 hrs of arrival to the ED Aortic Dissection and Rupture; Neurologic impairment; Cardiopulmonary Arrest; Endotracheal Intubation; Insertion or Replacement of Mechanical Circulatory Assist Device Medical History Generalized anxiety disorder Panic disorder Primary dysthymia late onset Chronic kidney disease (CKD) Bacteremia Acute hyperkalemia Weakness High cholesterol COPD (chronic obstructive pulmonary disease) Kidney disease HTN (hypertension) Social History Social History Household Members: Family Housing: House Do you presently have visiting nurse or other home services: No Alcohol intake: never Patient Tobacco Use Status: Never used Tobacco Smoked in Last 30 Days: No Use of substances other than those prescribed or required for medical reasons: No Advance Directives: Yes Advance Directives on File: Yes Advance Directives Date on File: 08/26/21 service: No Current occupational status: retired Physical Exam 2 Vital Signs: Vital Signs: Last Vital Signs Temp 98.1 F 12/01/23 12:41 Pulse 71 12/01/23 12:41 Resp 16 01/02/24 12:41 BP 161/51 H 12/01/23 12:41 Pulse Ox 99 12/01/23 12:41 O2 Del Method Room Air 12/01/23 12:41 BMI result Body Mass Index 52.3 Const: Other: The patient is a chronically ill-appearing obese older woman who is awake and alert. She seems to have a pleasant demeanor. She does not seem in acute distress. HEENT: Other: Face symmetrical. Mucous membranes moist. Eyes: Other: Pupils are round equal, conjunctivae clear, extraocular movements grossly intact Neck: Other: No obvious JVD. Resp: Other: Lungs are fairly clear bilaterally. No increased work of breathing. Cardio: Other: The patient has a regular rate and rhythm with no murmur GI: Other: Abdomen is soft and nontender Skin: Other: The the skin is dry and unremarkable. Neuro: Other: The patient is awake and alert. She has a cheerful demeanor. She is poorly oriented in a manner consistent with dementia. Her face is symmetrical. Her speech is clear. Her eye movements are intact. She is able to move her extremities symmetrically. No lateralizing findings. Extrem: Other: Noted significant peripheral edema. No leg asymmetry. Medical Decision Making Medical Decision Making MDM Narrative: The patient is an 88-year-old dialysis patient with some history of dementia who lives with her granddaughter. Her functional status has been considerably worse over the last 5 or 6 days. She was seen here 2 days ago and a presumption was that she might have UTI. She was started on cefuroxime 2 days ago on Thursday but has not received any additional outpatient antibiotics because the pharmacy was closed. She went to dialysis yesterday. Her granddaughter no longer feels that she can safely care for the patient because the patient's confusion is worsened gait seems less steady. A head CT is negative. I reviewed the urine culture from 2 days ago. There was no significant positive result. I therefore do not think the patient's change in her status is related to UTI. No other obvious acute medical process is identified. I suspect that she is probably deconditioned and I suspect that the patient is likely having some progression of her dementia. I spoke to both the patient's granddaughter, Helga, and the patient's brother, Darion (the healthcare proxy). Both of these people feel that Helga can no longer care for the patient in the current setting. The patient will therefore be kept in the hospital for evaluation by case management and physical therapy. Since the patient is a dialysis patient and will be scheduled to have dialysis tomorrow (Thursday) I will contact the hospitalist about hospitalizing the patient so that the patient did receive dialysis tomorrow. Lab Data 12/01/23 09:51 12/01/23 09:51 Labs: Lab Results 12/01/23 12/01/23 12/01/23 Range/Units 09:51 09:54 16:18 WBC 7.2 (4.8-10.8) X10*3/uL RBC 3.78 L (4.20-5.50) X10*6/uL Hgb 11.8 L (12.0-16.0) g/dl Hct 37.6 (37.0-47.0) % MCV 99.5 H (80.0-98.0) fL MCH 31.2 (27.0-33.0) pg MCHC 31.4 (31.0-35.0) g/dl RDW 14.4 (11.0-16.0) % Plt Count 145 L (160-400) X10*3/uL MPV 9.6 (9.4-12.3) fL Immature Gran % (Auto) 0.1 (0.0-0.4) % Neut % (Auto) 65.2 (45-73) % Lymph % (Auto) 19.8 L (20-40) % [place] % (Auto) 10.3 (2-11) % Eos % (Auto) 4.0 (0-4) % Baso % (Auto) 0.6 (0-2) % Lymph # (Auto) 1.4 (1.2-4.9) X10*3/uL [place] # (Auto) 0.7 (0.1-1.2) X10*3/uL Eos # (Auto) 0.3 (0.0-0.4) X10*3/uL Baso # (Auto) 0.0 (0.0-0.2) X10*3/uL Abs Immat Gran (auto) 0.01 (0.00-0.03) X10*3/uL Absolute Neuts (auto) 4.7 (2.0-8.3) x10*3/uL Absolute Nucleated RBC 0.000 (0.0-0.012) X10*3/uL Nucleated RBC % (auto) 0.0 (0.0-0.2) /100WBC VBG pH 7.46 H (7.32-7.43) VBG pCO2 42 mmHg VBG pO2 40 mmHg VBG HCO3 30 H (22-26) mmol/L VBG O2 Saturation 72.0 % VBG Base Excess 6.2 mmol/L Sodium 140 (135-145) mmol/L Potassium 4.6 (3.3-5.1) mmol/L Chloride 105 (96-108) mmol/L Carbon Dioxide 25 (22-29) mmol/L Anion Gap 15 (12-20) BUN 23 H (9-16) mg/dL Creatinine 4.17 H* (0.5-1.4) mg/dL Estim Creat Clear Calc 12.9 Estimated GFR 10 Random Glucose 85 (60-115) mg/dL Calcium 9.6 (8.4-10.2) mg/dL Magnesium 2.1 (1.6-2.6) mg/dL Total Bilirubin 0.5 (0.0-1.0) mg/dL Direct Bilirubin 0.2 (0.0-0.5) mg/dL AST 20 (5-31) U/L ALT 17 (0-31) U/L Alkaline Phosphatase 96 (39-117) U/L Troponin I High Sens 9.6 (<3.5-17.0) ng/L C-Reactive Protein < 0.10 (< or = 0.50) mg/dL B-Natriuretic Peptide 542 H (<100) pg/mL Total Protein 6.4 L (6.5-8.0) g/dL Albumin 3.5 (3.5-5.0) g/dL Urine Color Yellow Urine Appearance Clear Urine pH 7.0 (5.0-9.0) Ur Specific [place] 1.010 (1.005-1.025) Urine Protein 100 (2+) H (Neg-Trace) mg/dL Urine Glucose (UA) Negative (Negative) mg/dL Urine Ketones Negative (Negative) mg/dL Urine Blood Negative (Negative) Urine Nitrite Negative (Negative) Ur Leukocyte Esterase Small (1+) H (Negative) Urine RBC 0-2 (0-2) /HPF Urine WBC 0-5 (0-5) /HPF Ur Squamous Epith Cells 0-2 (0-2) /HPF Urine Bacteria None Seen (None Seen) Hyaline Casts 0-2 (0-2) /LPF Influenza Type A (PCR) NEGATIVE (Negative) Influenza Type B (PCR) NEGATIVE (Negative) RSV RNA Qual (PCR) NEGATIVE (Negative) SARS-CoV-2 RNA (RT-PCR) NEGATIVE (Negative) Independent Interpretation I performed an independent interpretation of an: EKG Interpretation: EKG at 08:58 shows what I believe is sinus rhythm at 65 beats per minute. No definite acute ischemic findings. Discharge Plan Discharge Clinical Impression: Altered mental status, Generalized weakness, Dementia, End stage renal disease Patient Disposition: Admitted As Inpatient
--- NOTE | 2023-12-01 08:49 | ECG_ITS ---
Test Reason : AMS Blood Pressure : / mmHG Vent. Rate : 065 BPM Atrial Rate : 000 BPM P-R Int : 000 ms QRS Dur : 080 ms QT Int : 396 ms P-R-T Axes : 000 -01 065 degrees QTc Int : 411 ms Junctional rhythm Abnormal ECG When compared with ECG of 29-NOV-2023 12:08, Junctional rhythm has replaced Sinus rhythm Referred By: Michi Quinonez Electronically Signed By:Alcides Sarabia
[2023-12-01 09:56] LABS: MANUAL DIFF FLAG NO
[2023-12-01 09:58] LABS: Basophils Percent Auto 0.6 % (0-2); Eosinophils Absolute Auto 0.3 X10*3/uL (0.0-0.4); Hematocrit 37.6 % (37.0-47.0); Hemoglobin 11.8 g/dl (12.0-16.0); Imm Gran Abs Auto 0.01 X10*3/uL (0.00-0.03); Imm Gran Pct Auto 0.1 % (0.0-0.4); Lymphocytes Absolute Auto 1.4 X10*3/uL (1.2-4.9); Lymphocytes Percent Auto 19.8 % (20-40); Mean Corpuscular HGB Conc 31.4 g/dl (31.0-35.0); Mean Corpuscular Hemoglobin 31.2 pg (27.0-33.0); Mean Corpuscular Volume 99.5 fL (80.0-98.0); Mean Platelet Volume 9.6 fL (9.4-12.3); Monocytes Absolute Auto 0.7 X10*3/uL (0.1-1.2); Monocytes Percent Auto 10.3 % (2-11); Neutrophils Absolute Auto 4.7 x10*3/uL (2.0-8.3); Neutrophils Percent Auto 65.2 % (45-73); Platelet Count 145 X10*3/uL (160-400); Red Blood Count 3.78 X10*6/uL (4.20-5.50); Red Cell Distribution Width 14.4 % (11.0-16.0); White Blood Count 7.2 X10*3/uL (4.8-10.8)
[2023-12-01 10:05] LABS: Venous Blood Gas Refer to POC result
[2023-12-01 10:05] LABS: VBG Base Excess 6.2 mmol/L; VBG HCO3 30 mmol/L (22-26); VBG pCO2 42 mmHg; VBG pH 7.46 (7.32-7.43); VBG pO2 40 mmHg
[2023-12-01 10:19] LABS: B Type Natriuretic Peptide 542 pg/mL (<100)
[2023-12-01 10:37] LABS: Influenza A PCR NEGATIVE (Negative); Influenza B PCR NEGATIVE (Negative); Resp Syncy Virus RNA Qual PCR NEGATIVE (Negative); SARS COV2 PCR INHOUSE NEGATIVE (Negative)
[2023-12-01 10:48] LABS: Alanine Aminotransferase 17 U/L (0-31); Albumin Level 3.5 g/dL (3.5-5.0); Alkaline Phosphatase 96 U/L (39-117); Anion Gap 15 (12-20); Aspartate Amino Transferase 20 U/L (5-31); Bilirubin Direct 0.2 mg/dL (0.0-0.5); Bilirubin Total 0.5 mg/dL (0.0-1.0); Blood Urea Nitrogen 23 mg/dL (9-16); C Reactive Protein < 0.10 mg/dL (< or = 0.50); Calcium 9.6 mg/dL (8.4-10.2); Carbon Dioxide 25 mmol/L (22-29); Chloride 105 mmol/L (96-108); Creatinine Clr Calc Pharmacy 12.9; Estimated Glomerular Filt Rate 10; Glucose Random 85 mg/dL (60-115); Magnesium 2.1 mg/dL (1.6-2.6); Potassium 4.6 mmol/L (3.3-5.1); Sodium 140 mmol/L (135-145); Total Protein 6.4 g/dL (6.5-8.0)
--- NOTE | 2023-12-01 11:29 | PC.NURSE ---
pt sleeping quietly on stretcher in no apparent distress. rr even/unlabored. plan of care ongoing.
[2023-12-01 12:41] VITALS: BP 161/51; PULSE 71; RESP 16; TEMP 36.7; O2SAT 99
--- NOTE | 2023-12-01 13:15 | PC.NURSE ---
pt brought to CT scan.
[2023-12-01 13:43] LABS: Troponin-I High Sensitivity 9.6 ng/L (<3.5-17.0)
[2023-12-01 16:28] LABS: Appearance Urine Clear; Color Urine Yellow; Glucose Urine UA Negative (Negative); Leukocyte Esterase Urine Small (1+) (Negative); Nitrite Urine Negative (Negative); UMIC TRIGGER UACC YES; Urine Blood Negative (Negative); Urine Ketones Negative (Negative); Urine Protein 100 (2+) mg/dL (Neg-Trace)
--- NOTE | 2023-12-01 16:29 | PC.NURSE ---
ua obtained and sent to lab
[2023-12-01 16:39] LABS: Bacteria Urine None Seen (None Seen); Hyaline Casts Urine 0-2 /LPF (0-2); RBC Urine 0-2 /HPF (0-2); Squamous Epithelial Cell Urine 0-2 /HPF (0-2); UACC Culture Trigger YES; WBC Urine 0-5 /HPF (0-5)
--- NOTE | 2023-12-01 17:52 | PC.NURSE ---
pt provided with RAMON Handy. pt awaiting admit orders. pending admission. pt awake and alert to verbal stimuli. rr even/unlabored. plan of care ongoing.
--- NOTE | 2023-12-01 17:58 | P.HPHOSP_ITS ---
History of Present Illness Date of Service: 12/01/23 Attending physician on admission: [facility] Chief Complaint: weakness, falls 88-year-old female with history of unspecified dementia, ESR D on dialysis MWF, hypertension, COPD, hyperlipidemia, unspecified mood disorder presented to the ED earlier today from home. The patient is not the best historian secondary to her dementia. Per her granddaughter, Helga with whom she lives, the patient has seemed more confused, weaker, and less steady on her feet for the last 5 days. No falls in the last few days but has had recurrent falls in the past and has been through short-term rehab at least 4 times this year. She has only been home from rehab for about 1 month. She was seen in the ED 3 days ago for the symptoms and was thought to have a UTI and was prescribed cefuroxime. 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 Upon review of chart, urine culture ultimately resulted as negative. The granddaughter has expressed concerns about being able to safely take care of her grandmother given the ongoing progressive weakness and recurrent falls. No fevers, chills, recent illness. On arrival, vital stable. Hematology studies unremarkable. Renal function baseline, electrolyte levels normal. Hepatic function normal. Troponin normal, BNP baseline. UA unremarkable. Negative for flu, COVID, influenza. Head CT negative for any acute intracranial abnormality. Chest x-ray negative. Given need for HD, patient will be admitted for further management and probable placement to [facility] versus LTC. Review of Systems 2 Review of Systems: Yes Unobtainable due to mental status [facility] Medical History Generalized anxiety disorder Panic disorder Primary dysthymia late onset Chronic kidney disease (CKD) Bacteremia Acute hyperkalemia Weakness High cholesterol COPD (chronic obstructive pulmonary disease) Kidney disease HTN (hypertension) Social History Household Members: Family Housing: House Do you presently have visiting nurse or other home services: No Alcohol intake: never Patient Tobacco Use Status: Never used Tobacco Smoked in Last 30 Days: No Use of substances other than those prescribed or required for medical reasons: No Advance Directives: Yes Advance Directives on File: Yes Advance Directives Date on File: 08/26/21 service: No Current occupational status: retired Meds Allergies Allergy/AdvReac Type Severity Reaction Status Date / Time No Known Allergies Allergy Verified 08/16/21 15:17 Active Medications: Current Medications Acetaminophen (Acetaminophen 325 Mg Tablet) 650 mg PO Q6H PRN PRN Reason: Pain, Mild (Pain Scale 1-3) Heparin Sodium (Porcine) (Heparin Sodium,Porcine 5,000 Unit/Ml Vial) 5,000 unit SUBCUT Q12H JORDY Ondansetron HCl (Ondansetron Hcl 4 Mg/2 Ml Vial) 4 mg IVPUSH Q8H PRN PRN Reason: Nausea and Vomiting Senna (Sennosides 8.6 Mg Tablet) 17.2 mg PO BEDTIME PRN PRN Reason: Constipation Sodium Chloride (0.9 % Sodium Chloride Flush 3 Ml Syringe) [facility] Medications Medication Instructions Recorded Confirmed Last Taken Type aspirin 81 mg tablet,delayed 81 mg PO DAILY 01/24/23 12/01/23 09/08/23 History release sevelamer carbonate 800 mg tablet 1 tab PO TID 01/24/23 12/01/23 09/08/23 History venlafaxine 150 mg tablet,extended 1 tab PO DAILY 01/24/23 12/01/23 09/08/23 History release 24 hr atorvastatin 40 mg tablet 40 mg PO DAILY 07/24/23 12/01/23 09/08/23 History propranolol 20 mg tablet 20 mg PO BID 07/24/23 12/01/23 09/08/23 History lorazepam 0.5 mg tablet 0.5 mg PO DAILY@1700 09/08/23 12/01/23 11/30/22 History acetaminophen 500 mg tablet 1,000 mg PO Q8H PRN Pain 12/01/23 12/01/23 Unknown History diphenhydramine HCl 25 mg tablet 25 mg PO BEDTIME 12/01/23 12/01/23 11/30/22 History melatonin 10 mg tablet 10 mg PO BEDTIME 12/01/23 12/01/23 11/30/22 History Physical Exam 2 Vital Signs and Narrative: Vital Signs: Last Vital Signs Temp 98.1 F 12/01/23 12:41 Pulse 71 12/01/23 12:41 Resp 16 12/01/23 12:41 BP 161/51 H 12/01/23 12:41 Pulse Ox 99 12/01/23 12:41 O2 Del Method Room Air 12/01/23 12:41 BMI result Body Mass Index 52.3 Constitutional - Awake and Alert, No apparent distress Eyes - PERRLA, EOMI Cardiovascular - S1S2, RRR, No edema Respiratory - Normal lung expansion, Normal respiratory effort, No respiratory distress, CTA bilaterally Gastrointestinal - NT / ND; +BS; No rebound or guarding Extremities - no calf tenderness bilaterally, no swelling Skin - Warm/Dry Neurological - Alert & oriented x3, CN II-XII in tact, 5/5 strength BUE and BLE Psychological - Appropriate affect Results Labs 12/01/23 09:51 12/01/23 09:51 Labs: Laboratory Results - last 24 hr 12/01/23 12/01/23 12/01/23 09:51 09:54 16:18 MCV 99.5 H MCH 31.2 MCHC 31.4 RDW 14.4 Plt Count 145 L MPV 9.6 Immature Gran % (Auto) 0.1 Neut % (Auto) 65.2 Lymph % (Auto) 19.8 L [place] % (Auto) 10.3 Eos % (Auto) 4.0 Baso % (Auto) 0.6 Lymph # (Auto) 1.4 [place] # (Auto) 0.7 Eos # (Auto) 0.3 Baso # (Auto) 0.0 Abs Immat Gran (auto) 0.01 Absolute Neuts (auto) 4.7 Absolute Nucleated RBC 0.000 Nucleated RBC % (auto) 0.0 VBG pH 7.46 H VBG pCO2 42 VBG pO2 40 VBG HCO3 30 H VBG O2 Saturation 72.0 VBG Base Excess 6.2 Anion Gap 15 Estim Creat Clear Calc 12.9 Estimated GFR 10 Random Glucose 85 Calcium 9.6 Magnesium 2.1 Total Bilirubin 0.5 Direct Bilirubin 0.2 AST 20 ALT 17 Alkaline Phosphatase 96 C-Reactive Protein < 0.10 B-Natriuretic Peptide 542 H Total Protein 6.4 L Albumin 3.5 Urine Color Yellow Urine Appearance Clear Urine pH 7.0 Ur Specific [place] 1.010 Urine Protein 100 (2+) H Urine Glucose (UA) Negative Urine Ketones Negative Urine Blood Negative Urine Nitrite Negative Ur Leukocyte Esterase Small (1+) H Urine RBC 0-2 Urine WBC 0-5 Ur Squamous Epith Cells 0-2 Urine Bacteria None Seen Hyaline Casts 0-2 Influenza Type A (PCR) NEGATIVE Influenza Type B (PCR) NEGATIVE RSV RNA Qual (PCR) NEGATIVE SARS-CoV-2 RNA (RT-PCR) NEGATIVE Imaging Radiologist's Impressions: Impressions Chest X-Ray 12/01/23 09:09 IMPRESSION: No acute pulmonary pathology. Head CT 12/01/23 13:15 IMPRESSION: No acute intracranial pathology compared to 09/08/2023. Assessment and Plan (1) End stage renal disease: Status: Acute (2) Dementia: Status: Acute (3) Generalized weakness: Status: Acute Plan 88-year-old female with history of unspecified dementia, ESR D on dialysis MWF, hypertension, COPD, hyperlipidemia, unspecified mood disorder admitted for ESRD on HD and placement. #Progressive weakness and disorientation- r/t advancing unspecified dementia -UA negative, no evidence of infection. Head CT without acute abnormality -PT eval #ESRD on dialysis MWF -nephrology consult -continue sevelamar -renal function baseline, lytes normal -follow bmp #HTN -bp reasonably controlled -continue propranolol # COPD -no acute exacerbation -not on home inhalers # HLD -statin # unspecified mood disorder -continue home meds DVT prophylaxis-heparin Full code Patient requires inpatient stay at least 2 midnights for hemodialysis with ESRD awaiting safe disposition and probable placement to [facility] versus LTC Quality Stroke Does the patient have a stroke diagnosis?: No VTE Prior VTE?: No VTE Risk Level:: Medical - moderate - high VTE Device Contraindication: Treatment Not Indicated VTE Drug Contraindication: N/A - Med Ordered
--- NOTE | 2023-12-01 18:09 | PHA.MEDREC ---
Pharmacy Consult ? Medication Reconciliation Pharmacy has completed the medication reconciliation. Spoke with patient's stacey darling who reported all medicaitons. Diane Walter, PadminiD
[2023-12-01] MEDS: Heparin Sodium,Porcine 5,000 UNIT/ML VIAL 5000 UNIT SUBCUT (18:45)
--- NOTE | 2023-12-01 18:47 | PC.NURSE ---
pt medicated per jan. pt son and [id number] at bedside, updated on pt plan of care. son, Darion, sts to call him for anything. number in pt's chart. pt resting quietly, compliant with care. plan of care ongoing.
--- NOTE | 2023-12-01 19:29 | PC.NURSE ---
this rn assumed care of pt. pt resting in stretcher in [place] at this time. set up for dinner. no acute distress noted.
[2023-12-01] MEDS: diphenhydrAMINE HCL 25 MG CAPSULE PO (20:23)
[2023-12-01] MEDS: Sevelamer Carbonate Tablet 800 MG TABLET PO (20:23)
[2023-12-01] MEDS: LORazepam 0.5 MG TABLET PO (20:23)
[2023-12-01] MEDS: Melatonin 3 MG TABLET 9 MG PO (20:23)
[2023-12-01] MEDS: Propranolol HCL 20 MG TABLET PO (20:27)
--- NOTE | 2023-12-01 20:28 | PC.NURSE ---
pt medicated per jan. pt tolerated medications well with water.
[2023-12-02 00:55] VITALS: BP 125/66; PULSE 61; RESP 16; TEMP 37; O2SAT 98
[2023-12-02] MEDS: 0.9 % Sodium Chloride Flush 3 ML SYRINGE IVFLUSH ×3 (00:59→20:29)
--- NOTE | 2023-12-02 01:49 | PC.NURSE ---
pt changed and repositioned at this time.IV access initiated, 22G placed in right upper arm.
--- NOTE | 2023-12-02 01:55 | PC.NURSE ---
IV access wrapped for pt comfort.
[2023-12-02 02:35] VITALS: BMI 33.1
[2023-12-02 02:37] VITALS: BP 140/88; PULSE 59; RESP 18; TEMP 36.6; O2SAT 97
[2023-12-02] MEDS: Heparin Sodium,Porcine 5,000 UNIT/ML VIAL 5000 UNIT SUBCUT (05:00)
[2023-12-02 06:38] LABS: MANUAL DIFF FLAG NO
[2023-12-02 06:54] LABS: Basophils Percent Auto 0.5 % (0-2); Eosinophils Absolute Auto 0.4 X10*3/uL (0.0-0.4); Eosinophils Percent Auto 5.9 % (0-4); Hematocrit 37.8 % (37.0-47.0); Hemoglobin 11.8 g/dl (12.0-16.0); Imm Gran Abs Auto 0.01 X10*3/uL (0.00-0.03); Imm Gran Pct Auto 0.2 % (0.0-0.4); Lymphocytes Absolute Auto 1.7 X10*3/uL (1.2-4.9); Lymphocytes Percent Auto 25.3 % (20-40); Mean Corpuscular HGB Conc 31.2 g/dl (31.0-35.0); Mean Corpuscular Hemoglobin 31.9 pg (27.0-33.0); Mean Corpuscular Volume 102.2 fL (80.0-98.0); Monocytes Absolute Auto 0.9 X10*3/uL (0.1-1.2); Monocytes Percent Auto 13.7 % (2-11); Neutrophils Absolute Auto 3.6 x10*3/uL (2.0-8.3); Neutrophils Percent Auto 54.4 % (45-73); Platelet Count 138 X10*3/uL (160-400); Red Cell Distribution Width 14.4 % (11.0-16.0); White Blood Count 6.6 X10*3/uL (4.8-10.8)
[2023-12-02 07:08] LABS: Anion Gap 12 (12-20); Blood Urea Nitrogen 32 mg/dL (9-16); Calcium 9.7 mg/dL (8.4-10.2); Carbon Dioxide 25 mmol/L (22-29); Chloride 105 mmol/L (96-108); Creatinine Clr Calc Pharmacy 7.8; Estimated Glomerular Filt Rate 8; Glucose Random 71 mg/dL (60-115); Potassium 4.2 mmol/L (3.3-5.1); Sodium 138 mmol/L (135-145)
[2023-12-02 07:42] VITALS: BP 140/60; PULSE 64; RESP 18; TEMP 37; O2SAT 97
[2023-12-02] MEDS: buPROPion HCl XL 150 MG TAB.ER.24H PO (09:20)
[2023-12-02] MEDS: Venlafaxine HCl ER 150 MG CAP.ER.24H PO (09:20)
[2023-12-02] MEDS: Atorvastatin Calcium 40 MG TABLET PO (09:20)
[2023-12-02] MEDS: Sevelamer Carbonate Tablet 800 MG TABLET PO (09:20)
[2023-12-02] MEDS: Propranolol HCL 20 MG TABLET PO (09:20)
[2023-12-02] MEDS: Aspirin Enteric Coated 81 MG TABLET.DR PO (09:20)
[2023-12-02 09:25] VITALS: BP 140/60; PULSE 64; O2SAT 97
--- NOTE | 2023-12-02 09:55 | MHC.CM.PN ---
IMM DELIVERED PT LIVES WITH GRANDDAUGHTER RASHID WHO IS ALSO HER CAREGIVER. PT ATTENDS HD M-W-F AT [facility] AND TRANSPORT VIA [facility]. +HCP ON FILE. PCP DR. SCHWARZ. Taj.T. HAS RECOMMENDED STR. REFERRAL SENT TO [facility], AWAITING RESPONSE. DP: STR HAS BEEN RECOMMENDED BY P.T. CM WILL CONTINUE TO FOLLOW FOR ANY CHANGE IN DC PLAN/NEEDS.
--- NOTE | 2023-12-02 10:03 | PM.CNNEP ---
History of Present Illness Reason for Consult Consult date: 12/03/23 Chief Complaint Chief complaint: Weakness, falls, ESRD on HD History of Present Illness Narrative: 88-year-old female with history of unspecified dementia, ESR D on dialysis MWF, hypertension, COPD, hyperlipidemia, unspecified mood disorder presented to the ED earlier today from home. The patient is not the best historian secondary to her dementia. Usually undergoes hemodialysis in [place] and is being cared by Dr. Lino Lindquist Review of Systems Review of Systems Yes Unobtainable due to mental status [facility] Past Medical History Medical History Generalized anxiety disorder Panic disorder Primary dysthymia late onset Chronic kidney disease (CKD) Bacteremia Acute hyperkalemia Weakness High cholesterol COPD (chronic obstructive pulmonary disease) Kidney disease HTN (hypertension) Social History Social History Household Members: Family Housing: House Do you presently have visiting nurse or other home services: Yes Alcohol intake: never Patient Tobacco Use Status: Never used Tobacco Smoked in Last 30 Days: No Use of substances other than those prescribed or required for medical reasons: No Currently Displaying Signs/Symptoms of Drug Intoxication Withdrawal: No Have you been hit, kicked, punched, or otherwise hurt by someone within the past year? If so, by whom?: No Do you feel safe in your current relationship?: No Current Relationship Is there a partner from a previous relationship who is making you feel unsafe now?: No Are you made to feel afraid or neglected: No Advance Directives: Yes Advance Directives on File: Yes Advance Directives Date on File: 08/26/21 Do you have thoughts of harming others: None Do you have a plan to hurt others: No Plan Recently lost weight without trying: No How much weight loss: Not applicable Eating poorly because of decreased appetite: No Nutrition screen score: 0 Nutrition Risks: No Nutritional Risk Patient : No : No Poor oral hygiene: No service: No Current occupational status: retired [employer] Allergies Allergy/AdvReac Type Severity Reaction Status Date / Time No Known Allergies Allergy Verified 08/16/21 15:17 Active Medications: Current Medications Acetaminophen (Acetaminophen 325 Mg Tablet) 650 mg PO Q6H PRN PRN Reason: Pain, Mild (Pain Scale 1-3) Aspirin (Aspirin Enteric Coated 81 Mg Tablet.) 81 mg PO DAILY REPLACED BY [facility] Last Admin: 12/02/23 09:20 Dose: 81 mg Atorvastatin Calcium (Atorvastatin Calcium 40 Mg Tablet) 40 mg PO DAILY REPLACED BY [facility] Last Admin: 12/02/23 09:20 Dose: 40 mg Bupropion HCl (Bupropion Hcl Xl 150 Mg Tab.Er.24h) 150 mg PO DAILY REPLACED BY [facility] Last Admin: 12/02/23 09:20 Dose: 150 mg Diphenhydramine HCl (Diphenhydramine Hcl 25 Mg Capsule) 25 mg PO BEDTIME REPLACED BY [facility] Last Admin: 12/01/23 20:23 Dose: 25 mg Heparin Sodium (Porcine) (Heparin Sodium,Porcine 5,000 Unit/Ml Vial) 5,000 unit SUBCUT Q12H REPLACED BY [facility] Last Admin: 12/02/23 05:00 Dose: 5,000 unit Lorazepam (Lorazepam 0.5 Mg Tablet) 0.5 mg PO DAILY@1700 REPLACED BY [facility] Last Admin: 12/01/23 20:23 Dose: 0.5 mg Melatonin (Melatonin 3 Mg Tablet) 9 mg PO BEDTIME REPLACED BY [facility] Last Admin: 12/01/23 20:23 Dose: 9 mg Ondansetron HCl (Ondansetron Hcl 4 Mg/2 Ml Vial) 4 mg IVPUSH Q8H PRN PRN Reason: Nausea and Vomiting Propranolol HCl (Propranolol Hcl 20 Mg Tablet) 20 mg PO BID REPLACED BY [facility]; Protocol Last Admin: 12/02/23 09:20 Dose: 20 mg Senna (Sennosides 8.6 Mg Tablet) 17.2 mg PO BEDTIME PRN PRN Reason: Constipation Sevelamer Carbonate (Sevelamer Carbonate Tablet 800 Mg Tablet) 800 mg PO TID REPLACED BY [facility] Last Admin: 12/02/23 09:20 Dose: 800 mg Sodium Chloride (0.9 % Sodium Chloride Flush 3 Ml Syringe) 3 ml IVFLUSH QSHIFT REPLACED BY [facility] Last Admin: 12/02/23 09:20 Dose: 3 ml Venlafaxine HCl (Venlafaxine Hcl Er 150 Mg Cap.Er.24h) 150 mg PO DAILY REPLACED BY [facility] Last Admin: 12/02/23 09:20 Dose: 150 mg Home Medications Medication Instructions Recorded Confirmed Last Taken Type aspirin 81 mg tablet,delayed 81 mg PO DAILY 01/24/23 12/01/23 09/08/23 History release sevelamer carbonate 800 mg tablet 1 tab PO TID 01/24/23 12/01/23 09/08/23 History venlafaxine 150 mg tablet,extended 1 tab PO DAILY 01/24/23 12/01/23 09/08/23 History release 24 hr atorvastatin 40 mg tablet 40 mg PO DAILY 07/24/23 12/01/23 09/08/23 History propranolol 20 mg tablet 20 mg PO BID 07/24/23 12/01/23 09/08/23 History lorazepam 0.5 mg tablet 0.5 mg PO DAILY@1700 09/08/23 12/01/23 11/30/22 History acetaminophen 500 mg tablet 1,000 mg PO Q8H PRN Pain 12/01/23 12/01/23 Unknown History diphenhydramine HCl 25 mg tablet 25 mg PO BEDTIME 12/01/23 12/01/23 11/30/22 History melatonin 10 mg tablet 10 mg PO BEDTIME 12/01/23 12/01/23 11/30/22 History Physical Exam Vital Signs: Last Vital Signs Temp 98.6 F 12/02/23 07:42 Pulse 64 12/02/23 09:25 Resp 18 12/02/23 07:42 BP 140/60 H 12/02/23 09:25 Pulse Ox 97 12/02/23 09:25 O2 Del Method Room Air 12/02/23 07:42 BMI result Body Mass Index 33.1 Const General: comfortable; No acute distress Orientation/consciousness: patient oriented x3 Eyes General: appearance normal, both eyes and all related structures Visual Edward: normal visual edward by confrontation Neck Neck: Yes supple and Yes no JVD Resp Effort & Inspection: normal respiratory effort and respiratory effort not decreased Auscultation: rhonchi Cardio Palpation: no palpable S3 and no palpable S4 Heart sounds: no rubs GI Inspection: Yes normal to inspection Palpation (GI): Soft to palpation Percussion: Yes normal to percussion Auscultation: normal bowel sounds General: Yes no CVA tenderness Back/Spine/Pelvis Back: no CVA tenderness Skin General skin exam: no petechiae and no purpura Neuro General: patient oriented x3 and no focal motor deficits Extrem General: No clubbing and No edema Results Lab Results 12/02/23 06:05 12/03/23 06:20 Lab results: Chemistry 12/01/23 12/02/23 09:51 06:05 Sodium 140 138 Potassium 4.6 4.2 Carbon Dioxide 25 25 BUN 23 H 32 H Creatinine 4.17 H* 5.27 H* Calcium 9.6 9.7 Hematology 12/01/23 12/02/23 09:51 06:05 WBC 7.2 6.6 Hgb 11.8 L 11.8 L Plt Count 145 L 138 L Urinalysis 12/01/23 16:18 Urine Color Yellow Urine Appearance Clear Urine pH 7.0 Ur Specific [place] 1.010 Urine Protein 100 (2+) H Urine Glucose (UA) Negative Urine Ketones Negative Urine Blood Negative Urine Nitrite Negative Ur Leukocyte Esterase Small (1+) H Urine RBC 0-2 Urine WBC 0-5 Ur Squamous Epith Cells 0-2 Hyaline Casts 0-2 Assessment and Plan (1) End stage renal disease: Status: Acute (2) Dementia: Status: Acute Plan Elderly woman with end stage renal disease and dementia. At present no overt signs or symptoms of uremia. Electrolytes are acceptable She will arrange for hemodialysis as per protocol. Monitor hemoglobin and use Epogen as needed Concur with other medical management. She will follow along with the team Procedures Date of Service Date of Service: 12/03/23
--- NOTE | 2023-12-02 10:45 | HO.PM.IMPN ---
Subjective Subjective Date of Service: 12/02/23 Interval History: Seen in follow up for weakness, AMS, falls, dementia Interval history: Resting comfortably in bed. Oriented to self, no complaints Review of Systems Review of Systems: Yes all other systems are reviewed and are negative Physical Exam Vital Signs: Vital Signs: Last Vital Signs Temp 98.6 F 12/02/23 07:42 Pulse 64 12/02/23 09:25 Resp 18 12/02/23 07:42 BP 140/60 H 12/02/23 09:25 Pulse Ox 97 12/02/23 09:25 O2 Del Method Room Air 12/02/23 07:42 BMI result Body Mass Index 33.1 Constitutional - Awake and Alert, No apparent distress Eyes - PERRLA, EOMI Cardiovascular - S1S2, RRR, No edema Respiratory - Normal lung expansion, Normal respiratory effort, No respiratory distress, CTA bilaterally Gastrointestinal - NT / ND; +BS; No rebound or guarding Extremities - no calf tenderness bilaterally, no swelling Skin - Warm/Dry Neurological - Alert & oriented to self Psychological - Appropriate affect Objective Data Active Medications Acetaminophen (Acetaminophen 325 Mg Tablet) 650 mg PO Q6H PRN PRN Reason: Pain, Mild (Pain Scale 1-3) Aspirin (Aspirin Enteric Coated 81 Mg Tablet.) 81 mg PO DAILY [facility] Last Admin: 12/02/23 09:20 Dose: 81 mg Documented By: FLORENTINO Atorvastatin Calcium (Atorvastatin Calcium 40 Mg Tablet) 40 mg PO DAILY [facility] Last Admin: 12/02/23 09:20 Dose: 40 mg Documented By: FLORENTINO Bupropion HCl (Bupropion Hcl Xl 150 Mg Tab.Er.24h) 150 mg PO DAILY [facility] Last Admin: 12/02/23 09:20 Dose: 150 mg Documented By: FLORENTINO Diphenhydramine HCl (Diphenhydramine Hcl 25 Mg Capsule) 25 mg PO BEDTIME [facility] Last Admin: 12/01/23 20:23 Dose: 25 mg Documented By: RENAN Heparin Sodium (Porcine) (Heparin Sodium,Porcine 5,000 Unit/Ml Vial) 5,000 unit SUBCUT Q12H [facility] Last Admin: 12/02/23 05:00 Dose: 5,000 unit Documented By: MISAEL Lorazepam (Lorazepam 0.5 Mg Tablet) 0.5 mg PO DAILY@1700 [facility] Last Admin: 12/01/23 20:23 Dose: 0.5 mg Documented By: RENAN Melatonin (Melatonin 3 Mg Tablet) 9 mg PO BEDTIME [facility] Last Admin: 12/01/23 20:23 Dose: 9 mg Documented By: RENAN Ondansetron HCl (Ondansetron Hcl 4 Mg/2 Ml Vial) 4 mg IVPUSH Q8H PRN PRN Reason: Nausea and Vomiting Propranolol HCl (Propranolol Hcl 20 Mg Tablet) 20 mg PO BID [facility]; Protocol Last Admin: 12/02/23 09:20 Dose: 20 mg Documented By: FLORENTINO Senna (Sennosides 8.6 Mg Tablet) 17.2 mg PO BEDTIME PRN PRN Reason: Constipation Sevelamer Carbonate (Sevelamer Carbonate Tablet 800 Mg Tablet) 800 mg PO TID [facility] Last Admin: 12/02/23 09:20 Dose: 800 mg Documented By: FLORENTINO Sodium Chloride (0.9 % Sodium Chloride Flush 3 Ml Syringe) 3 ml IVFLUSH QSHIFT [facility] Last Admin: 12/02/23 09:20 Dose: 3 ml Documented By: FLORENTINO Venlafaxine HCl (Venlafaxine Hcl Er 150 Mg Cap.Er.24h) 150 mg PO DAILY [facility] Last Admin: 12/02/23 09:20 Dose: 150 mg Documented By: FLORENTINO Labs 12/02/23 06:05 12/02/23 06:05 Labs: Laboratory Results - last 24 hr 12/01/23 12/01/23 12/02/23 09:51 16:18 06:05 MCV 102.2 H MCH 31.9 MCHC 31.2 RDW 14.4 Plt Count 138 L MPV 10.0 Immature Gran % (Auto) 0.2 Neut % (Auto) 54.4 Lymph % (Auto) 25.3 [place] % (Auto) 13.7 H Eos % (Auto) 5.9 H Baso % (Auto) 0.5 Lymph # (Auto) 1.7 [place] # (Auto) 0.9 Eos # (Auto) 0.4 Baso # (Auto) 0.0 Abs Immat Gran (auto) 0.01 Absolute Neuts (auto) 3.6 Absolute Nucleated RBC 0.000 Nucleated RBC % (auto) 0.0 Anion Gap 15 12 Estim Creat Clear Calc 12.9 7.8 Estimated GFR 10 8 Random Glucose 85 71 Calcium 9.6 9.7 Magnesium 2.1 Total Bilirubin 0.5 Direct Bilirubin 0.2 AST 20 ALT 17 Alkaline Phosphatase 96 C-Reactive Protein < 0.10 Total Protein 6.4 L Albumin 3.5 Urine Color Yellow Urine Appearance Clear Urine pH 7.0 Ur Specific [place] 1.010 Urine Protein 100 (2+) H Urine Glucose (UA) Negative Urine Ketones Negative Urine Blood Negative Urine Nitrite Negative Ur Leukocyte Esterase Small (1+) H Urine RBC 0-2 Urine WBC 0-5 Ur Squamous Epith Cells 0-2 Urine Bacteria None Seen Hyaline Casts 0-2 Assessment and Plan (1) End stage renal disease: Status: Acute (2) Dementia: Status: Acute Plan 88-year-old female with history of unspecified dementia, ESR D on dialysis MWF, hypertension, COPD, hyperlipidemia, unspecified mood disorder admitted for ESRD on HD and placement. #Progressive weakness and disorientation- r/t advancing unspecified dementia -UA negative, no evidence of infection. Head CT without acute abnormality -PT eval- recommending STR #ESRD on dialysis MWF -continue HD per nephro -nephro input appreciated -continue sevelamar -avoid nephrotoxins -follow bmp #HTN -bp reasonably controlled -continue propranolol # COPD -no acute exacerbation -not on home inhalers # HLD -statin # unspecified mood disorder -continue home meds DVT prophylaxis-heparin Full code Patient requires ongoing stay for safe disposition to str vs ltc and requiring scheduled HD Quality Stroke Does the patient have a stroke diagnosis?: No VTE Prior VTE?: No VTE Risk Level:: Medical - moderate - high VTE Device Contraindication: Treatment Not Indicated VTE Drug Contraindication: N/A - Med Ordered
[2023-12-02 19:34] VITALS: BP 109/47; PULSE 59; RESP 18; TEMP 36.1; O2SAT 99
[2023-12-03 03:27] VITALS: BP 100/47; PULSE 56; RESP 16; TEMP 36; O2SAT 97
[2023-12-03 07:11] VITALS: BP 117/57; PULSE 58; RESP 16; TEMP 36.6; O2SAT 97
[2023-12-03 07:32] LABS: Anion Gap 14 (12-20); Blood Urea Nitrogen 20 mg/dL (9-16); Calcium 9.6 mg/dL (8.4-10.2); Carbon Dioxide 29 mmol/L (22-29); Chloride 99 mmol/L (96-108); Estimated Glomerular Filt Rate 11; Glucose Random 88 mg/dL (60-115); Potassium 3.8 mmol/L (3.3-5.1); Sodium 138 mmol/L (135-145)
--- NOTE | 2023-12-03 13:07 | MHC.CM.PN ---
Addendum entered by Jessica Arriaza RN 12/03/23 15:42: Per [facility] - auth obtained. Plan to transport via S tomorrow 12/04 at 3pm after HD. Son/HCP Darion is aware of plan and will bring clothing to patient today. PA aware. Facility was provided with all information re: patient's HD and will set up transportation. HD facility also aware and requesting dc summary be faxed to [facility] at [phone]. CM will continue to follow. Original Note: [facility] has offered a bed and submitted for auth. They will arrange transportation to HD through patient's insurance. Ede Orlando updated on plan. CM will continue to follow.
[2023-12-03 14:47] VITALS: BP 117/57; PULSE 58; O2SAT 97
[2023-12-03 15:08] VITALS: BP 106/53; PULSE 63; RESP 18; TEMP 35.8; O2SAT 97
--- NOTE | 2023-12-03 16:55 | HO.PM.IMPN ---
Subjective Subjective Date of Service: 12/03/23 Interval History: seen and examined this morning follow up for weakness no overnight events, feeling well today. no specific complaints Review of Systems Review of Systems: Yes all other systems are reviewed and are negative Constitutional Constitutional: Denies chills and Denies fever(s) Cardiovascular Cardiovascular: Denies chest pain, Denies palpitations and Denies dyspnea Respiratory Respiratory: Denies cough and Denies dyspnea Endocrine Endocrine: Denies palpitations Physical Exam Vital Signs: Vital Signs: Last Vital Signs Temp 96.5 F L 12/03/23 15:08 Pulse 63 12/03/23 15:08 Resp 18 12/03/23 15:08 BP 106/53 L 12/03/23 15:08 Pulse Ox 97 12/03/23 15:08 O2 Del Method Room Air 12/03/23 15:08 BMI result Body Mass Index 33.1 Const: General: cooperative, comfortable, no acute distress, alert and awake Nutritional Appearance: overweight Orientation/consciousness: oriented to person and oriented to place Resp: Effort & Inspection: normal respiratory effort, able to speak in complete sentences, no respiratory distress and no use of accessory muscles Cardio: Rate: regular rate GI: Inspection: No distended Palpation (GI): Soft to palpation and nontender Neuro: Other: grossly nonfocal General: oriented to person, oriented to place and moves all extremities Extrem: Other: LUE AV fistula with palpable thrill Objective Data Active Medications Acetaminophen (Acetaminophen 325 Mg Tablet) 650 mg PO Q6H PRN PRN Reason: Pain, Mild (Pain Scale 1-3) Last Admin: 12/03/23 09:23 Dose: 650 mg Documented By: COTEMA Aspirin (Aspirin Enteric Coated 81 Mg Tablet.Dr) 81 mg PO DAILY [facility] Last Admin: 12/03/23 09:18 Dose: 81 mg Documented By: COTEMA Atorvastatin Calcium (Atorvastatin Calcium 40 Mg Tablet) 40 mg PO DAILY [facility] Last Admin: 12/03/23 09:18 Dose: 40 mg Documented By: COTEMA Bupropion HCl (Bupropion Hcl Xl 150 Mg Tab.Er.24h) 150 mg PO DAILY [facility] Last Admin: 12/03/23 09:18 Dose: 150 mg Documented By: COTEMA Diphenhydramine HCl (Diphenhydramine Hcl 25 Mg Capsule) 25 mg PO BEDTIME [facility] Last Admin: 12/02/23 20:27 Dose: 25 mg Documented By: EAGLE Docusate Sodium (Docusate Sodium 100 Mg Capsule) 100 mg PO BEDTIME PRN PRN Reason: Constipation Heparin Sodium (Porcine) (Heparin Sodium,Porcine 5,000 Unit/Ml Vial) 5,000 unit SUBCUT Q12H [facility] Last Admin: 12/03/23 05:33 Dose: 5,000 unit Documented By: EAGLE Lorazepam (Lorazepam 0.5 Mg Tablet) 0.5 mg PO DAILY@1700 [facility] Last Admin: 12/02/23 16:33 Dose: Not Given Documented By: HAO Non-Admin Reason: Off unit: Dialysis Melatonin (Melatonin 3 Mg Tablet) 9 mg PO BEDTIME [facility] Last Admin: 12/02/23 20:29 Dose: 9 mg Documented By: EAGLE Ondansetron HCl (Ondansetron Hcl 4 Mg/2 Ml Vial) 4 mg IVPUSH Q8H PRN PRN Reason: Nausea and Vomiting Propranolol HCl (Propranolol Hcl 20 Mg Tablet) 20 mg PO BID [facility]; Protocol Last Admin: 12/03/23 09:18 Dose: 20 mg Documented By: HAO Senna (Sennosides 8.6 Mg Tablet) 17.2 mg PO BEDTIME PRN PRN Reason: Constipation Sevelamer Carbonate (Sevelamer Carbonate Tablet 800 Mg Tablet) 800 mg PO TID [facility] Last Admin: 12/03/23 09:18 Dose: 800 mg Documented By: HAO Sodium Chloride (0.9 % Sodium Chloride Flush 3 Ml Syringe) 3 ml IVFLUSH QSHIFT [facility] Last Admin: 12/03/23 09:18 Dose: 3 ml Documented By: HAO Venlafaxine HCl (Venlafaxine Hcl Er 150 Mg Cap.Er.24h) 150 mg PO DAILY [facility] Last Admin: 12/03/23 09:18 Dose: 150 mg Documented By: HAO Labs 12/02/23 06:05 12/03/23 06:20 Labs: Laboratory Results - last 24 hr 12/03/23 06:20 Hold Purple Top SEE NOTE Anion Gap 14 Estim Creat Clear Calc 11.0 Estimated GFR 11 Random Glucose 88 Calcium 9.6 Microbiology Microbiology Results: Microbiology 12/01/23 16:18 Urine Culture - Final Urine Catheterized - Straight Catheter Assessment and Plan (1) End stage renal disease: Status: Acute Plan 88-year-old female with history of unspecified dementia, ESR D on dialysis MWF, hypertension, COPD, hyperlipidemia, unspecified mood disorder admitted for ESRD on HD and placement. #Progressive weakness and disorientation- r/t advancing unspecified dementia UA negative, no evidence of infection. Head CT without acute abnormality PT eval- recommending STR #ESRD on dialysis MWF continue HD per nephro continue sevelamar #HTN -bp reasonably controlled -continue propranolol # COPD -no acute exacerbation -not on home inhalers # HLD -statin # unspecified mood disorder -continue home meds DVT prophylaxis-heparin Full code attending - dr. Hartley Patient requires ongoing stay for safe disposition to str vs ltc and requiring scheduled HD Quality Stroke Does the patient have a stroke diagnosis?: No VTE Prior VTE?: No VTE Risk Level:: Medical - moderate - high VTE Device Contraindication: Treatment Not Indicated VTE Drug Contraindication: N/A - Med Ordered
[2023-12-03 19:32] VITALS: BP 133/63; PULSE 60; RESP 16; TEMP 36.1; O2SAT 98
--- NOTE | 2023-12-03 20:37 | PM.PNNEP ---
Subjective Subjective Date of Service: 12/04/23 Interval history: Events noted Physical Exam Vital Signs: Vital Signs: Last Vital Signs Temp 96.9 F 12/03/23 19:32 Pulse 60 12/03/23 19:32 Resp 16 12/03/23 19:32 BP 133/63 12/03/23 19:32 Pulse Ox 98 12/03/23 19:32 O2 Del Method Room Air 12/03/23 19:32 BMI result Body Mass Index 33.1 Awake. Comfortable. Neck is supple. Mucosa moist. Lungs bilateral scattered rhonchi. Heart S1-S2 heard no gallop. Abdomen soft. Extremities no edema. No involuntary movements. No myoclonus. Objective Data Labs 12/02/23 06:05 12/03/23 06:20 Labs: Laboratory Results - last 24 hr 12/03/23 06:20 Hold Purple Top SEE NOTE Sodium 138 Potassium 3.8 Chloride 99 Carbon Dioxide 29 Anion Gap 14 BUN 20 H Creatinine 3.79 H Estim Creat Clear Calc 11.0 Estimated GFR 11 Random Glucose 88 Calcium 9.6 Microbiology Microbiology Results: Microbiology 12/01/23 16:18 Urine Catheterized - Straight Catheter Urine Culture - Final Procedures Date of Service Date of Service: 12/04/23 Assessment & Plan Assessment and plan (1) UTI (urinary tract infection): Status: Acute (2) Multiple falls: Status: Acute (3) ESRD (end stage renal disease) on dialysis: Status: Acute (4) Physical deconditioning: Status: Acute Plan 87 years old lady with PMH of COPD, HTN, HLD, ESRD on HD (MWF) via LUE vistula who presents to the hospital with lightheadedness and falls at home. Falls 2/2 physical deconditioning, orthostatic hypotension ESRD on HD No signs or symptoms of uremia MWF schedule Await placement Time Spent With Patient Time: Total time managing care of this patient today ____ minutes. Progress Note: Quality Stroke Does the patient have a stroke diagnosis?: No
[2023-12-04 04:00] VITALS: BP 118/58; PULSE 56; RESP 14; TEMP 35.9; O2SAT 97
[2023-12-04 07:05] VITALS: BP 114/56; PULSE 61; RESP 18; TEMP 36.6; O2SAT 96
--- NOTE | 2023-12-04 10:07 | PM.DS ---
DS: Providers Provider Date of Service: 12/04/23 Date of admission: 12/01/23 17:51 Date of discharge: 12/04/23 Primary care physician: Joshua Schaeffer MD Consults: 12/01/23 16:13 Consult to Case Management Stat Comment: 12/01/23 17:55 Consult to Nephrology Routine Consulting Provider: [facility] Reason for consultation: esrd on hd Attending physician on discharge: Ankush Hartley Discharging clinician: Rocio Foreman DS: Diagnosis Discharge Diagnosis (1) Multiple falls: Status: Acute (2) ESRD (end stage renal disease) on dialysis: Status: Acute (3) Physical deconditioning: Status: Acute DS: Summary Hospital Course Hospital Course: From H&P on the day of admission 88-year-old female with history of unspecified dementia, ESR D on dialysis MWF, hypertension, COPD, hyperlipidemia, unspecified mood disorder presented to the ED earlier today from home. The patient is not the best historian secondary to her dementia. Per her granddaughter, Crystal with whom she lives, the patient has seemed more confused, weaker, and less steady on her feet for the last 5 days. No falls in the last few days but has had recurrent falls in the past and has been through short-term rehab at least 4 times this year. She has only been home from rehab for about 1 month. She was seen in the ED 3 days ago for the symptoms and was thought to have a UTI and was prescribed cefuroxime. However, pharmacies were closed and she was unable to miner pick the prescription and given ongoing symptoms, presented today for further evaluation. Upon review of chart, urine culture ultimately resulted as negative. The granddaughter has expressed concerns about being able to safely take care of her grandmother given the ongoing progressive weakness and recurrent falls. No fevers, chills, recent illness. On arrival, vital stable. Hematology studies unremarkable. Renal function baseline, electrolyte levels normal. Hepatic function normal. Troponin normal, BNP baseline. UA unremarkable. Negative for flu, COVID, influenza. Head CT negative for any acute intracranial abnormality. Chest x-ray negative. Given need for HD, patient will be admitted for further management and probable placement to STR versus LTC. Progressive weakness and disorientation- r/t advancing unspecified dementia UA negative, no evidence of infection. Head CT without acute abnormality. PT eval- recommending STR ESRD on dialysis MWF. she continued her regularly scheduled dialysis and sevelamar. Time Attestation Discharge coordination time: Greater than 30 minutes Quality: Safe Use of Opioids Does Pt have an Active Cancer Diagnosis on the Problem List?: No Quality: Stroke Does the patient have a stroke diagnosis?: No Physical Exam Vital Signs: Vital Signs: Last Vital Signs Temp 97.8 F 12/04/23 07:05 Pulse 61 12/04/23 07:05 Resp 18 12/04/23 07:05 BP 114/56 L 12/04/23 07:05 Pulse Ox 96 12/04/23 07:05 O2 Del Method Room Air 12/04/23 07:05 BMI result Body Mass Index 33.1 Const: General: cooperative, comfortable, no acute distress, alert and awake Nutritional Appearance: overweight Orientation/consciousness: oriented to person and oriented to place Resp: Effort & Inspection: normal respiratory effort, able to speak in complete sentences, no respiratory distress and no use of accessory muscles Cardio: Rate: regular rate GI: Inspection: No distended Palpation (GI): Soft to palpation and nontender Neuro: Other: grossly nonfocal General: oriented to person, oriented to place and moves all extremities Extrem: Other: LUE AV fistula with palpable thrill DS: Data Data Completed and Pending Completed studies during hospitalization [Text1]: Procedures Performance of Urinary Filtration, Intermittent, Less than 6 Hours Per Day (09/08/23) Discharge Plan Discharge Anticipated Discharge Date/Time: 12/04/23 15:57 Patient Disposition: Xfer SNF Discharge Diagnosis: Dementia ESRD on HD Referrals: Joshua Schaeffer MD [Primary Care Provider] - 1 Week Discharge Medications: Continued bupropion HCl 150 mg tablet extended release 24 hr 150 mg PO QAM Qty: 30 1RF venlafaxine 150 mg tablet extended release 24hr 1 tab PO DAILY aspirin 81 mg Tablet,Delayed Release (Dr/Ec) 81 mg PO DAILY sevelamer carbonate 800 mg tablet 1 tab PO TID atorvastatin 40 mg tablet 40 mg PO DAILY propranolol 20 mg tablet 20 mg PO BID lorazepam 0.5 mg tablet 0.5 mg PO DAILY@1700 Rx Instructions: 1 TAB BEDTIME NEEDED MAY TAKE ADDITIONAL 1 TAB DAILY PRIOR TO DIALYSIS acetaminophen 500 mg Tablet 1,000 mg PO Q8H PRN (Reason: Pain) diphenhydramine HCl 25 mg Tablet 25 mg PO BEDTIME melatonin 10 mg Tablet 10 mg PO BEDTIME Discontinued cefuroxime axetil 250 mg tablet 250 mg PO Q24H 6 Days Qty: 6 0RF No Action (DME) T.EJavier Knee Jfeece-W-Cyzt Misc See Rx Instructions .Route Qty: 2 0RF Rx Instructions: As directed Discharge Orders: Discharge Order (Routine); Ordered 12/04/23 Ordered By: Rocio Foreman Activity on Discharge: As tolerated Stand Alone Forms: Patient Portal Discharge page Care Plan Goals: see below Health Concerns: Dementia ESRD on HD Plan of Treatment: continue HD MWF schedule, follow up with nephrology as needed follow up with PCP as needed Assessment: see discharge summary
--- NOTE | 2023-12-04 13:27 | HO.PM.IMPN ---
Subjective Subjective Date of Service: 12/04/23 Interval History: seen and examined this morning, seen while in HD no overnight events, having some mild left arm pain at fistula during HD, dialysis nurse aware. no redness noted follow up for weakness Review of Systems Review of Systems: Yes all other systems are reviewed and are negative Constitutional Constitutional: Denies chills and Denies fever(s) Cardiovascular Cardiovascular: Denies chest pain Respiratory Respiratory: Denies cough Physical Exam Vital Signs: Vital Signs: Last Vital Signs Temp 97.8 F 12/04/23 07:05 Pulse 61 12/04/23 07:05 Resp 18 12/04/23 07:05 BP 114/56 L 12/04/23 07:05 Pulse Ox 96 12/04/23 07:05 O2 Del Method Room Air 12/04/23 07:05 BMI result Body Mass Index 33.1 Const: General: cooperative, comfortable, no acute distress, alert and awake Nutritional Appearance: overweight Orientation/consciousness: oriented to person and oriented to place Resp: Effort & Inspection: normal respiratory effort, able to speak in complete sentences, no respiratory distress and no use of accessory muscles Cardio: Rate: regular rate GI: Inspection: No distended Palpation (GI): Soft to palpation and nontender Neuro: Other: grossly nonfocal General: oriented to person, oriented to place and moves all extremities Extrem: Other: LUE AV fistula with palpable thrill Objective Data Active Medications Acetaminophen (Acetaminophen 325 Mg Tablet) 650 mg PO Q6H PRN PRN Reason: Pain, Mild (Pain Scale 1-3) Last Admin: 12/03/23 09:23 Dose: 650 mg Documented By: COTEMA Aspirin (Aspirin Enteric Coated 81 Mg Tablet.) 81 mg PO DAILY [facility] Last Admin: 12/04/23 07:53 Dose: 81 mg Documented By: ADRIANNA Atorvastatin Calcium (Atorvastatin Calcium 40 Mg Tablet) 40 mg PO DAILY [facility] Last Admin: 12/04/23 07:54 Dose: 40 mg Documented By: ADRIANNA Bupropion HCl (Bupropion Hcl Xl 150 Mg Tab.Er.24h) 150 mg PO DAILY [facility] Last Admin: 12/04/23 07:54 Dose: 150 mg Documented By: ADRIANNA Diphenhydramine HCl (Diphenhydramine Hcl 25 Mg Capsule) 25 mg PO BEDTIME [facility] Last Admin: 12/03/23 20:13 Dose: 25 mg Documented By: MYLA Docusate Sodium (Docusate Sodium 100 Mg Capsule) 100 mg PO BEDTIME PRN PRN Reason: Constipation Heparin Sodium (Porcine) (Heparin Sodium,Porcine 5,000 Unit/Ml Vial) 5,000 unit SUBCUT Q12H [facility] Last Admin: 12/04/23 05:45 Dose: 5,000 unit Documented By: MYLA Lorazepam (Lorazepam 0.5 Mg Tablet) 0.5 mg PO DAILY@1700 [facility] Last Admin: 12/03/23 17:34 Dose: 0.5 mg Documented By: EREN-KLECHAZ Melatonin (Melatonin 3 Mg Tablet) 9 mg PO BEDTIME [facility] Last Admin: 12/03/23 20:12 Dose: 9 mg Documented By: MYLA Ondansetron HCl (Ondansetron Hcl 4 Mg/2 Ml Vial) 4 mg IVPUSH Q8H PRN PRN Reason: Nausea and Vomiting Propranolol HCl (Propranolol Hcl 20 Mg Tablet) 20 mg PO BID [facility]; Protocol Last Admin: 12/04/23 07:54 Dose: Not Given Documented By: ADRIANNA Non-Admin Reason: Off unit: Dialysis Senna (Sennosides 8.6 Mg Tablet) 17.2 mg PO BEDTIME PRN PRN Reason: Constipation Sevelamer Carbonate (Sevelamer Carbonate Tablet 800 Mg Tablet) 800 mg PO TID [facility] Last Admin: 12/04/23 07:54 Dose: 800 mg Documented By: ADRIANNA Sodium Chloride (0.9 % Sodium Chloride Flush 3 Ml Syringe) 3 ml IVFLUSH QSHIFT [facility] Last Admin: 12/04/23 08:02 Dose: 3 ml Documented By: ADRIANNA Venlafaxine HCl (Venlafaxine Hcl Er 150 Mg Cap.Er.24h) 150 mg PO DAILY [facility] Last Admin: 12/04/23 07:54 Dose: 150 mg Documented By: ADRIANNA Labs 12/02/23 06:05 12/03/23 06:20 Microbiology Microbiology Results: Microbiology 12/01/23 16:18 Urine Culture - Final Urine Catheterized - Straight Catheter Assessment and Plan (1) End stage renal disease: Status: Acute (2) Dementia: Status: Acute Plan 88-year-old female with history of unspecified dementia, ESR D on dialysis MWF, hypertension, COPD, hyperlipidemia, unspecified mood disorder admitted for ESRD on HD and placement. #Progressive weakness and disorientation- r/t advancing unspecified dementia UA negative, no evidence of infection. Head CT without acute abnormality PT eval- recommending STR #ESRD on dialysis MWF continue HD per nephro continue sevelamar #HTN -bp reasonably controlled -continue propranolol # COPD -no acute exacerbation -not on home inhalers # HLD -statin # unspecified mood disorder -continue home meds DVT prophylaxis-heparin Full code attending - dr. Hartley Patient requires ongoing stay for safe disposition to str vs ltc and requiring scheduled HD Quality Stroke Does the patient have a stroke diagnosis?: No VTE Prior VTE?: No VTE Risk Level:: Medical - moderate - high VTE Device Contraindication: Treatment Not Indicated VTE Drug Contraindication: N/A - Med Ordered
--- NOTE | 2023-12-04 13:54 | MHC.CM.PN ---
Addendum entered by Jessica Arriaza RN 12/04/23 16:06: Bed offer from [facility], who will go for auth. Original Note: DC cancelled, as [facility] was not able to secure transportation to patient's HD facility. CM attempted to set up a visitor slot at HD center closer to SNF, but was not successful. [facility] in [place] may have an opening next week ([phone]). Additional referrals placed to local SNF's. No bed offers at this time. CM will continue attempts for visitor HD slots and local facilities. Ede Orlando updated on plan.
--- NOTE | 2023-12-04 13:57 | W.PM.DNNEP ---
Subjective Subjective This patient was seen during dialysis. Interval history: seen and examined this morning, seen while in HD no overnight events, having some mild left arm pain at fistula during HD, dialysis nurse aware. no redness noted follow up for weakness Physical Exam Vital Signs: Vital Signs: Last Vital Signs Temp 97.8 F 12/04/23 07:05 Pulse 61 12/04/23 07:05 Resp 18 12/04/23 07:05 BP 114/56 L 12/04/23 07:05 Pulse Ox 96 12/04/23 07:05 O2 Del Method Room Air 12/04/23 07:05 BMI result Body Mass Index 33.1 Const: General: comfortable; No acute distress Orientation/consciousness: patient oriented x3 Eyes: General: appearance normal, both eyes and all related structures Visual Edward: normal visual edward by confrontation Neck: Neck: Yes supple and Yes no JVD Resp: Effort & Inspection: normal respiratory effort and respiratory effort not decreased Auscultation: rhonchi Cardio: Palpation: no palpable S3 and no palpable S4 Heart sounds: no rubs GI: Inspection: Yes normal to inspection Palpation (GI): Soft to palpation Percussion: Yes normal to percussion Auscultation: normal bowel sounds : General: Yes no CVA tenderness Back/Spine/Pelvis: Back: no CVA tenderness Skin: General skin exam: no petechiae and no purpura Neuro: General: patient oriented x3 and no focal motor deficits Extrem: General: No clubbing and No edema Assessment & Plan Assessment and plan (1) UTI (urinary tract infection): Status: Inactive (2) Multiple falls: Status: Inactive (3) ESRD (end stage renal disease) on dialysis: Status: Inactive (4) Physical deconditioning: Status: Inactive Plan 87 years old lady with PMH of COPD, HTN, HLD, ESRD on HD (MWF) via [facility] who presents to the hospital with lightheadedness and falls at home. Falls 2/2 physical deconditioning, orthostatic hypotension ESRD on HD No signs or symptoms of uremia MWF schedule Await placement Time Spent With Patient Time: Total time managing care of this patient today ____ minutes. Procedures Date of Service Date of Service: 12/07/23
[2023-12-04 15:26] VITALS: BP 120/53; PULSE 69; RESP 18; TEMP 37; O2SAT 95
[2023-12-04 19:56] VITALS: BP 110/53; PULSE 67; RESP 18; TEMP 36.9; O2SAT 95
[2023-12-05 04:00] VITALS: BP 114/60; PULSE 57; RESP 16; TEMP 36.2; O2SAT 98
[2023-12-05 07:31] VITALS: BP 103/47; PULSE 57; RESP 18; TEMP 36.1; O2SAT 96
--- NOTE | 2023-12-05 07:41 | HO.PM.IMPN ---
Subjective Subjective Date of Service: 12/05/23 Interval History: seen and examined this morning, seen while in HD no overnight events, reports constipation, otherwise no complaints Review of Systems Review of Systems: Yes all other systems are reviewed and are negative Constitutional Constitutional: Denies chills and Denies fever(s) Cardiovascular Cardiovascular: Denies chest pain Respiratory Respiratory: Denies cough Physical Exam Vital Signs: Vital Signs: Last Vital Signs Temp 97.0 F 12/05/23 07:31 Pulse 57 12/05/23 07:31 Resp 18 12/05/23 07:31 BP 103/47 L 12/05/23 07:31 Pulse Ox 96 12/05/23 07:31 O2 Del Method Room Air 12/05/23 07:31 BMI result Body Mass Index 33.1 Constitutional - Awake and Alert, No apparent distress Eyes - PERRLA, EOMI Cardiovascular - S1S2, RRR, No edema Respiratory - Normal lung expansion, Normal respiratory effort, No respiratory distress, CTA bilaterally Gastrointestinal - NT / ND; +BS; No rebound or guarding Extremities - no calf tenderness bilaterally, no swelling Skin - Warm/Dry Neurological - Alert & oriented x3 Psychological - Appropriate affect Objective Data Active Medications Acetaminophen (Acetaminophen 325 Mg Tablet) 650 mg PO Q6H PRN PRN Reason: Pain, Mild (Pain Scale 1-3) Last Admin: 12/05/23 06:12 Dose: 650 mg Documented By: AYAZ Aspirin (Aspirin Enteric Coated 81 Mg Tablet.Dr) 81 mg PO DAILY [facility] Last Admin: 12/04/23 07:53 Dose: 81 mg Documented By: ADRIANNA Atorvastatin Calcium (Atorvastatin Calcium 40 Mg Tablet) 40 mg PO DAILY [facility] Last Admin: 12/04/23 07:54 Dose: 40 mg Documented By: ADRIANNA Bupropion HCl (Bupropion Hcl Xl 150 Mg Tab.Er.24h) 150 mg PO DAILY [facility] Last Admin: 12/04/23 07:54 Dose: 150 mg Documented By: ADRIANNA Diphenhydramine HCl (Diphenhydramine Hcl 25 Mg Capsule) 25 mg PO BEDTIME [facility] Last Admin: 12/04/23 20:17 Dose: 25 mg Documented By: AYAZ Docusate Sodium (Docusate Sodium 100 Mg Capsule) 100 mg PO BEDTIME PRN PRN Reason: Constipation Last Admin: 12/04/23 20:19 Dose: 100 mg Documented By: AYAZ Heparin Sodium (Porcine) (Heparin Sodium,Porcine 5,000 Unit/Ml Vial) 5,000 unit SUBCUT Q12H [facility] Last Admin: 12/05/23 06:09 Dose: 5,000 unit Documented By: AYAZ Lorazepam (Lorazepam 0.5 Mg Tablet) 0.5 mg PO DAILY@1700 [facility] Last Admin: 12/04/23 16:00 Dose: 0.5 mg Documented By: ADRIANNA Melatonin (Melatonin 3 Mg Tablet) 9 mg PO BEDTIME [facility] Last Admin: 12/04/23 20:17 Dose: 9 mg Documented By: AYAZ Ondansetron HCl (Ondansetron Hcl 4 Mg/2 Ml Vial) 4 mg IVPUSH Q8H PRN PRN Reason: Nausea and Vomiting Propranolol HCl (Propranolol Hcl 20 Mg Tablet) 20 mg PO BID [facility]; Protocol Last Admin: 12/04/23 20:17 Dose: 20 mg Documented By: AYAZ Senna (Sennosides 8.6 Mg Tablet) 17.2 mg PO BEDTIME PRN PRN Reason: Constipation Last Admin: 12/04/23 20:20 Dose: 17.2 mg Documented By: AYAZ Sevelamer Carbonate (Sevelamer Carbonate Tablet 800 Mg Tablet) 800 mg PO TID [facility] Last Admin: 12/04/23 20:17 Dose: 800 mg Documented By: AYAZ Sodium Chloride (0.9 % Sodium Chloride Flush 3 Ml Syringe) 3 ml IVFLUSH QSHIFT [facility] Last Admin: 12/04/23 20:20 Dose: 3 ml Documented By: AYAZ Venlafaxine HCl (Venlafaxine Hcl Er 150 Mg Cap.Er.24h) 150 mg PO DAILY [facility] Last Admin: 12/04/23 07:54 Dose: 150 mg Documented By: ADRIANNA Labs 12/02/23 06:05 12/03/23 06:20 Assessment and Plan (1) End stage renal disease: Status: Acute (2) Dementia: Status: Acute Plan 88-year-old female with history of unspecified dementia, ESR D on dialysis MWF, hypertension, COPD, hyperlipidemia, unspecified mood disorder admitted for ESRD on HD and placement. #Progressive weakness and disorientation- r/t advancing unspecified dementia UA negative, no evidence of infection. Head CT without acute abnormality PT eval- recommending STR #ESRD on dialysis MWF continue HD per nephro continue sevelamar #HTN -bp reasonably controlled -continue propranolol # COPD -no acute exacerbation -not on home inhalers # HLD -statin # unspecified mood disorder -continue home meds DVT prophylaxis-heparin Full code Patient requires ongoing stay for safe disposition to str vs ltc and requiring scheduled HD Quality Stroke Does the patient have a stroke diagnosis?: No VTE Prior VTE?: No VTE Risk Level:: Medical - moderate - high VTE Device Contraindication: Treatment Not Indicated VTE Drug Contraindication: N/A - Med Ordered
[2023-12-05] MEDS: polyethylene glycoL 3350 17 GM POWD.PACK PO (09:08)
[2023-12-05 20:00] VITALS: BP 131/60; PULSE 53; RESP 18; TEMP 37; O2SAT 96
[2023-12-06 04:00] VITALS: BP 112/55; PULSE 56; RESP 16; TEMP 36; O2SAT 97
[2023-12-06 07:19] VITALS: BP 126/56; PULSE 60; RESP 20; TEMP 36.6; O2SAT 100
--- NOTE | 2023-12-06 07:32 | HO.PM.IMPN ---
Subjective Subjective Date of Service: 12/06/23 Interval History: seen and examined this morning, seen while in HD no overnight events, reports constipation, otherwise no complaints Review of Systems Review of Systems: Yes all other systems are reviewed and are negative Physical Exam Vital Signs: Vital Signs: Last Vital Signs Temp 97.8 F 12/06/23 07:19 Pulse 60 12/06/23 07:19 Resp 20 12/06/23 07:19 BP 126/56 L 12/06/23 07:19 Pulse Ox 100 12/06/23 07:19 O2 Del Method Room Air 12/06/23 07:19 BMI result Body Mass Index 33.1 Constitutional - Awake and Alert, No apparent distress Eyes - PERRLA, EOMI Cardiovascular - S1S2, RRR, No edema Respiratory - Normal lung expansion, Normal respiratory effort, No respiratory distress, CTA bilaterally Gastrointestinal - NT / ND; +BS; No rebound or guarding Extremities - no calf tenderness bilaterally, no swelling Skin - Warm/Dry Neurological - Alert & oriented x3 Psychological - Appropriate affect Objective Data Active Medications Acetaminophen (Acetaminophen 325 Mg Tablet) 650 mg PO Q6H PRN PRN Reason: Pain, Mild (Pain Scale 1-3) Last Admin: 12/05/23 21:10 Dose: 650 mg Documented By: AYAZ Aspirin (Aspirin Enteric Coated 81 Mg Tablet.) [address] [facility] Last Admin: 12/05/23 09:07 Dose: 81 mg Documented By: FADY Atorvastatin Calcium (Atorvastatin Calcium 40 Mg Tablet) [address] [facility] Last Admin: 12/05/23 09:07 Dose: 40 mg Documented By: FADY Bupropion HCl (Bupropion Hcl Xl 150 Mg Tab.Er.24h) [address] [facility] Last Admin: 12/05/23 09:07 Dose: 150 mg Documented By: FADY Diphenhydramine HCl (Diphenhydramine Hcl 25 Mg Capsule) [address] [facility] Last Admin: 12/05/23 21:10 Dose: 25 mg Documented By: AYAZ Docusate Sodium (Docusate Sodium 100 Mg Capsule) 100 mg PO BEDTIME PRN PRN Reason: Constipation Last Admin: 12/05/23 21:10 Dose: 100 mg Documented By: AYAZ Heparin Sodium (Porcine) (Heparin Sodium,Porcine 5,000 Unit/Ml Vial) 5,[address] [facility] Last Admin: 12/06/23 05:34 Dose: 5,000 unit Documented By: AYAZ Lorazepam (Lorazepam 0.5 Mg Tablet) 0.5 mg PO DAILY@1700 [facility] Last Admin: 12/05/23 16:01 Dose: 0.5 mg Documented By: FADY Melatonin (Melatonin 3 Mg Tablet) [address] [facility] Last Admin: 12/05/23 21:10 Dose: 9 mg Documented By: AYAZ Ondansetron HCl (Ondansetron Hcl 4 Mg/2 Ml Vial) 4 mg IVPUSH Q8H PRN PRN Reason: Nausea and Vomiting Polyethylene Glycol (Polyethylene Glycol 3350 17 Gm Powd.Pack) [address] [facility] Last Admin: 12/05/23 09:08 Dose: 17 gm Documented By: FADY Propranolol HCl (Propranolol Hcl 20 Mg Tablet) [address] [facility]; Protocol Last Admin: 12/05/23 21:13 Dose: Not Given Documented By: AYAZ Non-Admin Reason: Decreased Heart Rate Senna (Sennosides 8.6 Mg Tablet) 17.2 mg PO BEDTIME PRN PRN Reason: Constipation Last Admin: 12/04/23 20:20 Dose: 17.2 mg Documented By: AYAZ Sevelamer Carbonate (Sevelamer Carbonate Tablet 800 Mg Tablet) [address] [facility] Last Admin: 12/05/23 21:10 Dose: 800 mg Documented By: AYAZ Sodium Chloride (0.9 % Sodium Chloride Flush 3 Ml Syringe) [address] [facility] Last Admin: 12/05/23 21:11 Dose: 3 ml Documented By: AYAZ Venlafaxine HCl (Venlafaxine Hcl Er 150 Mg Cap.Er.24h) [address] [facility] Last Admin: 12/05/23 09:07 Dose: 150 mg Documented By: FADY Labs 12/02/23 06:05 12/06/23 06:13 Labs: Laboratory Results - last 24 hr 12/05/23 09:54 Anion Gap 15 Estim Creat Clear Calc 9.5 Estimated GFR 10 Random Glucose 180 H Calcium 9.7 Assessment and Plan (1) End stage renal disease: Status: Acute (2) Dementia: Status: Acute Plan 88-year-old female with history of unspecified dementia, ESR D on dialysis MWF, hypertension, COPD, hyperlipidemia, unspecified mood disorder admitted for ESRD on HD and placement. #Progressive weakness and disorientation- r/t advancing unspecified dementia UA negative, no evidence of infection. Head CT without acute abnormality PT eval- recommending STR, awaiting insurance auth #ESRD on dialysis MWF continue HD per nephro continue sevelamar #HTN -bp reasonably controlled -continue propranolol # COPD -no acute exacerbation -not on home inhalers # HLD -statin # unspecified mood disorder -continue home meds DVT prophylaxis-heparin Full code Patient requires ongoing stay for safe disposition to str vs ltc and requiring scheduled HD, awaiting insurance authorization Quality Stroke Does the patient have a stroke diagnosis?: No VTE Prior VTE?: No VTE Risk Level:: Medical - moderate - high VTE Device Contraindication: Treatment Not Indicated VTE Drug Contraindication: N/A - Med Ordered
[2023-12-06 08:07] LABS: Anion Gap 18 (12-20); Blood Urea Nitrogen 40 mg/dL (9-16); Calcium 9.6 mg/dL (8.4-10.2); Carbon Dioxide 22 mmol/L (22-29); Chloride 97 mmol/L (96-108); Creatinine Clr Calc Pharmacy 7.5; Estimated Glomerular Filt Rate 7; Glucose Random 79 mg/dL (60-115); Potassium 4.8 mmol/L (3.3-5.1); Sodium 132 mmol/L (135-145)
[2023-12-06 15:51] VITALS: BP 114/58; PULSE 68; RESP 20; TEMP 36.4; O2SAT 96
[2023-12-06 20:00] VITALS: BP 125/58; PULSE 66; RESP 20; TEMP 36; O2SAT 96
[2023-12-07 03:59] VITALS: BP 118/56; PULSE 55; RESP 16; TEMP 36.3; O2SAT 98
[2023-12-07 06:01] LABS: Anion Gap 19 (12-20); Blood Urea Nitrogen 55 mg/dL (9-16); Calcium 9.5 mg/dL (8.4-10.2); Carbon Dioxide 23 mmol/L (22-29); Chloride 97 mmol/L (96-108); Creatinine Clr Calc Pharmacy 6.1; Estimated Glomerular Filt Rate 6; Glucose Random 86 mg/dL (60-115); Potassium 4.5 mmol/L (3.3-5.1); Sodium 134 mmol/L (135-145)
--- NOTE | 2023-12-07 08:37 | MHC.CM.PN ---
Addendum entered by Jenny Dockery 12/07/23 15:00: [facility] HAS OBTAINED AUTH FOR PTS TRANSPORT AND IS IN PROCESS OF ARRANGING RIDES CM RECEIVED A MESSAGE THAT PT WILL NOT BE ABLE TO DC TODAY PER HOSPITALIST [facility] INFORMED VIA [employer] DC PLANS CURRENTLY BEING PREPARED FOR TOMORROW Addendum entered by Jenny Dockery 12/07/23 10:55: [facility] IS CURRENTLY WORKING ON ARRANGING PTS HD TRANSPORTATION AUTH STILL PENDING Original Note: PT AWAITING STR PLACEMENT [facility] HAS OFFERED A BED, HOWEVER THEY WERE UNABLE TO OBTAIN AUTH OVER THE WEEKEND MESSAGE LEFT FOR THEM THIS MORNING TO ENSURE AUTH HAS BEEN REQUESTED PER CONVERSATION WITH SNF, THEY WILL ARRANGE PTS HD TRANSPORTATION
--- NOTE | 2023-12-07 10:34 | W.PM.DNNEP ---
Subjective Subjective This patient was seen during dialysis. Interval history: seen and examined this morning, seen while in HD no overnight events, reports constipation, otherwise no complaints Physical Exam Vital Signs: Vital Signs: Last Vital Signs Temp 97.4 F 12/07/23 03:59 Pulse 55 12/07/23 03:59 Resp 16 12/07/23 03:59 BP 118/56 L 12/07/23 03:59 Pulse Ox 98 12/07/23 03:59 O2 Del Method Room Air 12/07/23 03:59 BMI result Body Mass Index 33.1 Const: General: comfortable; No acute distress Orientation/consciousness: patient oriented x3 Eyes: General: appearance normal, both eyes and all related structures Visual Edward: normal visual edward by confrontation Neck: Neck: Yes supple and Yes no JVD Resp: Effort & Inspection: normal respiratory effort and respiratory effort not decreased Auscultation: rhonchi Cardio: Palpation: no palpable S3 and no palpable S4 Heart sounds: no rubs GI: Inspection: Yes normal to inspection Palpation (GI): Soft to palpation Percussion: Yes normal to percussion Auscultation: normal bowel sounds : General: Yes no CVA tenderness Back/Spine/Pelvis: Back: no CVA tenderness Skin: General skin exam: no petechiae and no purpura Neuro: General: patient oriented x3 and no focal motor deficits Extrem: General: No clubbing and No edema Assessment & Plan Assessment and plan (1) UTI (urinary tract infection): Status: Inactive (2) Multiple falls: Status: Inactive (3) ESRD (end stage renal disease) on dialysis: Status: Inactive (4) Physical deconditioning: Status: Inactive Plan 87 years old lady with PMH of COPD, HTN, HLD, ESRD on HD (MWF) via [facility] who presents to the hospital with lightheadedness and falls at home. Falls 2/2 physical deconditioning, orthostatic hypotension ESRD on HD No signs or symptoms of uremia MWF schedule Await placement Time Spent With Patient Time: Total time managing care of this patient today ____ minutes. Procedures Date of Service Date of Service: 12/07/23
--- NOTE | 2023-12-07 10:45 | HO.PM.IMPN ---
Subjective Subjective Date of Service: 12/07/23 Interval History: seen and examined this morning, seen while in HD no overnight events. More confused this morning Review of Systems Review of Systems: Yes all other systems are reviewed and are negative Physical Exam Vital Signs: Vital Signs: Last Vital Signs Temp 97.4 F 12/07/23 03:59 Pulse 55 12/07/23 03:59 Resp 16 12/07/23 03:59 BP 118/56 L 12/07/23 03:59 Pulse Ox 98 12/07/23 03:59 O2 Del Method Room Air 12/07/23 03:59 BMI result Body Mass Index 33.1 Constitutional - Awake and Alert, No apparent distress Eyes - PERRLA, EOMI Cardiovascular - S1S2, RRR, No edema Respiratory - Normal lung expansion, Normal respiratory effort, No respiratory distress, CTA bilaterally Gastrointestinal - NT / ND; +BS; No rebound or guarding Extremities - no calf tenderness bilaterally, no swelling Skin - Warm/Dry Neurological - Alert & oriented to self only Psychological - Appropriate affect Objective Data Active Medications Acetaminophen (Acetaminophen 325 Mg Tablet) 650 mg PO Q6H PRN PRN Reason: Pain, Mild (Pain Scale 1-3) Last Admin: 12/06/23 14:46 Dose: 650 mg Documented By: FADY Aspirin (Aspirin Enteric Coated 81 Mg Tablet.Dr) 81 mg PO DAILY [facility] Last Admin: 12/06/23 09:09 Dose: 81 mg Documented By: FADY Atorvastatin Calcium (Atorvastatin Calcium 40 Mg Tablet) 40 mg PO DAILY [facility] Last Admin: 12/06/23 09:09 Dose: 40 mg Documented By: FADY Bupropion HCl (Bupropion Hcl Xl 150 Mg Tab.Er.24h) 150 mg PO DAILY [facility] Last Admin: 12/06/23 09:09 Dose: 150 mg Documented By: FADY Diphenhydramine HCl (Diphenhydramine Hcl 25 Mg Capsule) 25 mg PO BEDTIME [facility] Last Admin: 12/06/23 20:24 Dose: 25 mg Documented By: FADY Docusate Sodium (Docusate Sodium 100 Mg Capsule) 100 mg PO BEDTIME PRN PRN Reason: Constipation Last Admin: 12/05/23 21:10 Dose: 100 mg Documented By: AYAZ Heparin Sodium (Porcine) (Heparin Sodium,Porcine 5,000 Unit/Ml Vial) 5,000 unit SUBCUT Q12H [facility] Last Admin: 12/07/23 06:09 Dose: 5,000 unit Documented By: MYLA Melatonin (Melatonin 3 Mg Tablet) 9 mg PO BEDTIME [facility] Last Admin: 12/06/23 20:24 Dose: 9 mg Documented By: FADY Ondansetron HCl (Ondansetron Hcl 4 Mg/2 Ml Vial) 4 mg IVPUSH Q8H PRN PRN Reason: Nausea and Vomiting Polyethylene Glycol (Polyethylene Glycol 3350 17 Gm Powd.Pack) 17 gm PO DAILY [facility] Last Admin: 12/06/23 09:09 Dose: 17 gm Documented By: FADY Propranolol HCl (Propranolol Hcl 20 Mg Tablet) 20 mg PO BID [facility]; Protocol Last Admin: 12/06/23 20:24 Dose: 20 mg Documented By: FADY Senna (Sennosides 8.6 Mg Tablet) 17.2 mg PO BEDTIME PRN PRN Reason: Constipation Last Admin: 12/04/23 20:20 Dose: 17.2 mg Documented By: AYAZ Sevelamer Carbonate (Sevelamer Carbonate Tablet 800 Mg Tablet) 800 mg PO TID [facility] Last Admin: 12/06/23 20:24 Dose: 800 mg Documented By: FADY Sodium Chloride (0.9 % Sodium Chloride Flush 3 Ml Syringe) 3 ml IVFLUSH QSHIFT [facility] Last Admin: 12/06/23 20:24 Dose: 3 ml Documented By: FADY Venlafaxine HCl (Venlafaxine Hcl Er 150 Mg Cap.Er.24h) 150 mg PO DAILY [facility] Last Admin: 12/06/23 09:09 Dose: 150 mg Documented By: FADY Labs 12/02/23 06:05 12/07/23 05:04 Labs: Laboratory Results - last 24 hr 12/07/23 05:04 Hold Purple Top SEE NOTE Anion Gap 19 Estim Creat Clear Calc 6.1 Estimated GFR 6 Random Glucose 86 Calcium 9.5 Assessment and Plan (1) End stage renal disease: Status: Inactive (2) Dementia: Status: Acute (3) Acute metabolic encephalopathy: Status: Acute (4) Acute UTI: Status: Acute (5) Generalized weakness: Status: Acute Plan 88-year-old female with history of unspecified dementia, ESR D on dialysis MWF, hypertension, COPD, hyperlipidemia, unspecified mood disorder admitted for ESRD on HD and placement. This morning with encephalopathy due to UTI #Acute metabolic encephalopathy due to UTI -increased confusion from baseline observed since admission -UA appears consistent with UTI. No sepsis -Keep npo for now, nursing bedside swallow eval ordered -IV ceftriaxone (initiated 12/07) -Follow CBC, cultures #Progressive weakness and disorientation- r/t advancing unspecified dementia UA negative, no evidence of infection. Head CT without acute abnormality PT eval- recommending STR once medically cleared #ESRD on dialysis MWF continue HD per nephro continue sevelamar #HTN -bp reasonably controlled -continue propranolol # COPD -no acute exacerbation -not on home inhalers # HLD -statin # unspecified mood disorder -continue home meds DVT prophylaxis-heparin Full code Patient requires ongoing stay for safe disposition to str vs ltc and requiring scheduled HD, now with UTI with metabolic encephalopathy requiring IV abx and close monitoring of mentation Quality Stroke Does the patient have a stroke diagnosis?: No VTE Prior VTE?: No VTE Risk Level:: Medical - moderate - high VTE Device Contraindication: Treatment Not Indicated VTE Drug Contraindication: N/A - Med Ordered
[2023-12-07 10:58] VITALS: BP 111/75; PULSE 69; RESP 18; TEMP 36.6; O2SAT 100
[2023-12-07 15:26] VITALS: BP 131/60; PULSE 58; RESP 16; TEMP 36.2; O2SAT 95
[2023-12-07 16:17] LABS: MANUAL DIFF FLAG NO
[2023-12-07 16:31] LABS: Basophils Absolute Auto 0.1 X10*3/uL (0.0-0.2); Basophils Percent Auto 0.6 % (0-2); Eosinophils Absolute Auto 0.3 X10*3/uL (0.0-0.4); Eosinophils Percent Auto 2.9 % (0-4); Hematocrit 38.3 % (37.0-47.0); Hemoglobin 12.1 g/dl (12.0-16.0); Imm Gran Abs Auto 0.02 X10*3/uL (0.00-0.03); Imm Gran Pct Auto 0.2 % (0.0-0.4); Lymphocytes Absolute Auto 1.3 X10*3/uL (1.2-4.9); Lymphocytes Percent Auto 14.4 % (20-40); Mean Corpuscular HGB Conc 31.6 g/dl (31.0-35.0); Mean Corpuscular Hemoglobin 31.1 pg (27.0-33.0); Mean Corpuscular Volume 98.5 fL (80.0-98.0); Mean Platelet Volume 10.2 fL (9.4-12.3); Monocytes Absolute Auto 0.8 X10*3/uL (0.1-1.2); Monocytes Percent Auto 9.3 % (2-11); Neutrophils Absolute Auto 6.4 x10*3/uL (2.0-8.3); Neutrophils Percent Auto 72.6 % (45-73); Platelet Count 148 X10*3/uL (160-400); Red Blood Count 3.89 X10*6/uL (4.20-5.50); Red Cell Distribution Width 14.4 % (11.0-16.0); White Blood Count 8.9 X10*3/uL (4.8-10.8)
[2023-12-07] MEDS: Heparin Sodium,Porcine 5,000 UNIT/ML VIAL 5000 UNIT SUBCUT (17:10)
[2023-12-07] MEDS: Sevelamer Carbonate Tablet 800 MG TABLET PO ×2 (17:10→20:10)
[2023-12-07] MEDS: 0.9 % Sodium Chloride Flush 3 ML SYRINGE IVFLUSH ×2 (17:10→20:10)
[2023-12-07 19:25] VITALS: BP 119/55; PULSE 59; RESP 18; TEMP 36; O2SAT 96
[2023-12-07] MEDS: Propranolol HCL 20 MG TABLET PO (20:10)
[2023-12-07] MEDS: Melatonin 3 MG TABLET 9 MG PO (20:10)
[2023-12-07] MEDS: diphenhydrAMINE HCL 25 MG CAPSULE PO (20:10)
[2023-12-08 03:27] VITALS: BP 148/60; PULSE 55; RESP 18; TEMP 36.2; O2SAT 97
[2023-12-08] MEDS: Heparin Sodium,Porcine 5,000 UNIT/ML VIAL 5000 UNIT SUBCUT (06:20)
[2023-12-08 07:26] VITALS: BP 138/63; PULSE 86; RESP 18; TEMP 36.4; O2SAT 98
[2023-12-08] MEDS: Propranolol HCL 20 MG TABLET PO (09:36)
[2023-12-08] MEDS: Sevelamer Carbonate Tablet 800 MG TABLET PO ×2 (09:36→14:42)
[2023-12-08] MEDS: Venlafaxine HCl ER 150 MG CAP.ER.24H PO (09:36)
[2023-12-08] MEDS: Atorvastatin Calcium 40 MG TABLET PO (09:36)
[2023-12-08] MEDS: buPROPion HCl XL 150 MG TAB.ER.24H PO (09:36)
[2023-12-08] MEDS: Aspirin Enteric Coated 81 MG TABLET.DR PO (09:36)
[2023-12-08] MEDS: 0.9 % Sodium Chloride Flush 3 ML SYRINGE IVFLUSH (09:37)
[2023-12-08] MEDS: polyethylene glycoL 3350 17 GM POWD.PACK PO (09:37)
--- NOTE | 2023-12-08 09:49 | PM.DS ---
DS: Providers Provider Date of Service: 12/08/23 Date of admission: 12/01/23 17:51 Date of discharge: 12/08/23 Primary care physician: Joshua Schaeffer MD Admitting clinician: Maria Ines Espinal Attending physician on admission: Reji Saleh Consults: 12/01/23 16:13 Consult to Case Management Stat Comment: 12/01/23 17:55 Consult to Nephrology Routine Consulting Provider: [facility] Reason for consultation: esrd on hd Attending physician on discharge: Reji [facility] Discharging clinician: Maria Ines Espinal DS: Diagnosis Discharge Diagnosis (1) End stage renal disease: Status: Inactive (2) Dementia: Status: Acute (3) Acute metabolic encephalopathy: Status: Acute (4) Acute UTI: Status: Acute (5) Generalized weakness: Status: Acute DS: Summary Hospital Course Hospital Course: From H&P on the day of admission 88-year-old female with history of unspecified dementia, ESR D on dialysis MWF, hypertension, COPD, hyperlipidemia, unspecified mood disorder presented to the ED earlier today from home. The patient is not the best historian secondary to her dementia. Per her granddaughter, Crystal with whom she lives, the patient has seemed more confused, weaker, and less steady on her feet for the last 5 days. No falls in the last few days but has had recurrent falls in the past and has been through short-term rehab at least 4 times this year. She has only been home from rehab for about 1 month. She was seen in the ED 3 days ago for the symptoms and was thought to have a UTI and was prescribed cefuroxime. However, pharmacies were closed and she was unable to pear picker the prescription and given ongoing symptoms, presented today for further evaluation. Upon review of chart, urine culture ultimately resulted as negative. The granddaughter has expressed concerns about being able to safely take care of her grandmother given the ongoing progressive weakness and recurrent falls. No fevers, chills, recent illness. On arrival, vital stable. Hematology studies unremarkable. Renal function baseline, electrolyte levels normal. Hepatic function normal. Troponin normal, BNP baseline. UA unremarkable. Negative for flu, COVID, influenza. Head CT negative for any acute intracranial abnormality. Chest x-ray negative. Given need for HD, patient will be admitted for further management and probable placement to [facility] versus LTC. Hospital course: Pt admitted to same day surgery center while awaiting placement to STR/LTC to continue HD treatments. Nephrology was consulted and she continued HD on MWF schedule. Renal function remained baseline without any significant electrolyte abnormality. Course was complicated by increased confusion from baseline on 12/07. UA was indicative of UTI and was empirically started on ceftriaxone. On day of discharge, mentation had improved to baseline. Preliminary urine culture results show enterococcus/strep. Will change antibiotics to amoxicillin 500mg TID x 5 days on discharge. She was evaluated by PT recommending transfer to STR. She should continue with HD MWF. Family is hoping to transition to LTC from STR. Status at Discharge Functional status at discharge: uses cane/walker Overall status at discharge: patient is progressing back to baseline Time Attestation Discharge coordination time: Greater than 30 minutes Quality: Safe Use of Opioids Does Pt have an Active Cancer Diagnosis on the Problem List?: No Quality: Stroke Does the patient have a stroke diagnosis?: No Physical Exam Vital Signs: Vital Signs: Last Vital Signs Temp 97.6 F 12/08/23 07:26 Pulse 86 12/08/23 07:26 Resp 18 12/08/23 07:26 BP 138/63 12/08/23 07:26 Pulse Ox 98 12/08/23 07:26 O2 Del Method Room Air 12/08/23 07:26 BMI result Body Mass Index 33.1 DS: Data Data Completed and Pending Completed studies during hospitalization [Text1]: Procedures Performance of Urinary Filtration, Intermittent, Less than 6 Hours Per Day (09/08/23) Labs on day of discharge: Laboratory Results - last 24 hr 12/07/23 12/07/23 12/07/23 12:45 12:59 15:42 WBC 8.9 RBC 3.89 L Hgb 12.1 Hct 38.3 MCV 98.5 H MCH 31.1 MCHC 31.6 RDW 14.4 Plt Count 148 L MPV 10.2 Immature Gran % (Auto) 0.2 Neut % (Auto) 72.6 Lymph % (Auto) 14.4 L [place] % (Auto) 9.3 Eos % (Auto) 2.9 Baso % (Auto) 0.6 Lymph # (Auto) 1.3 [place] # (Auto) 0.8 Eos # (Auto) 0.3 Baso # (Auto) 0.1 Abs Immat Gran (auto) 0.02 Absolute Neuts (auto) 6.4 Absolute Nucleated RBC 0.000 Nucleated RBC % (auto) 0.0 Ammonia 26 TSH 1.03 Hold Yellow Top Cancelled Urine Color Yellow Urine Appearance Cloudy Urine pH 5.0 Ur Specific [place] 1.010 Urine Protein 30 (1+) H Urine Glucose (UA) Negative Urine Ketones Negative Urine Blood Negative Urine Nitrite Negative Ur Leukocyte Esterase Small (1+) H Urine RBC 0-2 Urine WBC 11-20 H Ur Squamous Epith Cells 11-20 Urine Bacteria 1+ Hyaline Casts 3-5 12/07/23 15:42 WBC RBC Hgb Hct MCV MCH MCHC RDW Plt Count MPV Immature Gran % (Auto) Neut % (Auto) Lymph % (Auto) [place] % (Auto) Eos % (Auto) Baso % (Auto) Lymph # (Auto) [place] # (Auto) Eos # (Auto) Baso # (Auto) Abs Immat Gran (auto) Absolute Neuts (auto) Absolute Nucleated RBC Nucleated RBC % (auto) Ammonia TSH Hold Yellow Top See Note Urine Color Urine Appearance Urine pH Ur Specific [place] Urine Protein Urine Glucose (UA) Urine Ketones Urine Blood Urine Nitrite Ur Leukocyte Esterase Urine RBC Urine WBC Ur Squamous Epith Cells Urine Bacteria Hyaline Casts Preliminary micro results at discharge 12/07/23 Unknown Urine Culture - Preliminary Urine Catheterized - Straight Catheter Enterococcus/Streptococcus sp Discharge Plan Discharge Anticipated Discharge Date/Time: 12/04/23 15:57 Patient Disposition: Xfer SNF Discharge Diagnosis: Dementia ESRD on HD UTI Referrals: [facility] Saaved[facility] [place] [Outside] - 1 Week Joshua Schaeffer MD [Primary Care Provider] - 1 Week Discharge Medications: New amoxicillin 500 mg capsule 500 mg PO TID Qty: 15 0RF Continued bupropion HCl 150 mg tablet extended release 24 hr 150 mg PO QAM Qty: 30 1RF (ALEX) T.E.D. Knee Fffqge-W-Yzcy Misc See Rx Instructions .Route Qty: 2 0RF Rx Instructions: As directed venlafaxine 150 mg tablet extended release 24hr 1 tab PO DAILY aspirin 81 mg Tablet,Delayed Release (Dr/Ec) 81 mg PO DAILY sevelamer carbonate 800 mg tablet 1 tab PO TID atorvastatin 40 mg tablet 40 mg PO DAILY propranolol 20 mg tablet 20 mg PO BID lorazepam 0.5 mg tablet 0.5 mg PO DAILY@1700 Rx Instructions: 1 TAB BEDTIME NEEDED MAY TAKE ADDITIONAL 1 TAB DAILY PRIOR TO DIALYSIS acetaminophen 500 mg Tablet 1,000 mg PO Q8H PRN (Reason: Pain) diphenhydramine HCl 25 mg Tablet 25 mg PO BEDTIME melatonin 10 mg Tablet 10 mg PO BEDTIME Discontinued cefuroxime axetil 250 mg tablet 250 mg PO Q24H 6 Days Qty: 6 0RF Discharge Orders: Discharge Order (Routine); Ordered 12/08/23 Ordered By: Maria Ines Espinal Diet: Advance to usual diet Activity on Discharge: As tolerated Stand Alone Forms: Patient Portal Discharge page Care Plan Goals: see below Health Concerns: Dementia ESRD on HD Plan of Treatment: continue HD MWF schedule, follow up with nephrology as needed follow up with PCP as needed UTI with metabolic encephalopathy encephalopathy resolved, mentation baseline consistent with her dementia preliminary urine culture with enterococcus/strep will treat empirically with amoxicillin 500mg TID x 5 days Transfer to [facility] for [facility] Assessment: see discharge summary Discharge Date/Time: 12/08/23 17:07
--- NOTE | 2023-12-08 11:57 | MHC.CM.PN ---
Addendum entered by Grace Whyte 12/08/23 11:59: Patients son/HCP has been notified of the dc and transfer to [facility] today. Original Note: IMM 12/08/22 Patient discharged today to [facility] care via BLS @ 4pm.
[2023-12-08 13:43] LABS: MANUAL DIFF FLAG NO
[2023-12-08 13:50] LABS: Basophils Absolute Auto 0.1 X10*3/uL (0.0-0.2); Basophils Percent Auto 0.8 % (0-2); Eosinophils Absolute Auto 0.3 X10*3/uL (0.0-0.4); Eosinophils Percent Auto 3.5 % (0-4); Hematocrit 41.9 % (37.0-47.0); Hemoglobin 13.3 g/dl (12.0-16.0); Imm Gran Abs Auto 0.02 X10*3/uL (0.00-0.03); Imm Gran Pct Auto 0.3 % (0.0-0.4); Lymphocytes Absolute Auto 1.8 X10*3/uL (1.2-4.9); Lymphocytes Percent Auto 23.7 % (20-40); Mean Corpuscular HGB Conc 31.7 g/dl (31.0-35.0); Mean Corpuscular Hemoglobin 31.3 pg (27.0-33.0); Mean Corpuscular Volume 98.6 fL (80.0-98.0); Mean Platelet Volume 10.1 fL (9.4-12.3); Monocytes Absolute Auto 0.8 X10*3/uL (0.1-1.2); Monocytes Percent Auto 9.9 % (2-11); Neutrophils Absolute Auto 4.8 x10*3/uL (2.0-8.3); Neutrophils Percent Auto 61.8 % (45-73); Platelet Count 173 X10*3/uL (160-400); Red Blood Count 4.25 X10*6/uL (4.20-5.50); Red Cell Distribution Width 14.3 % (11.0-16.0); White Blood Count 7.7 X10*3/uL (4.8-10.8)
[2023-12-08] MEDS: Amoxicillin 500 MG CAPSULE PO (14:42)
[2023-12-08] MEDS: Acetaminophen 325 MG TABLET 650 MG PO (14:42)
[2023-12-08 15:25] VITALS: BP 117/58; PULSE 57; RESP 16; TEMP 36; O2SAT 98
== END 2023-12-08 17:07 | disposition skilled nursing facility (03) | DRG 689 ==
LOC: HO.ED 17:26 → HO.EDOVER 18:17 → HO.S3 12-02 00:20
PROVIDERS: Admitting Provider Physician Assistant; Emergency Provider Emergency Medicine; PCP Internal Medicine; Visit Provider Physician Assistant
DX: N39.0 Urinary tract infection, site not specified (principal); G93.41 Metabolic encephalopathy; N18.6 End stage renal disease; I12.0 Hypertensive chronic kidney disease with stage 5 chronic kidney disease or end stage renal disease; J44.9 Chronic obstructive pulmonary disease, unspecified; F39 Unspecified mood [affective] disorder; I95.1 Orthostatic hypotension; E78.5 Hyperlipidemia, unspecified; F03.90 Unspecified dementia, unspecified severity, without behavioral disturbance, psychotic disturbance, mood disturbance, and anxiety; B95.2 Enterococcus as the cause of diseases classified elsewhere; Z99.2 Dependence on renal dialysis; Z91.148 Patient's other noncompliance with medication regimen for other reason; Z20.822 Contact with and (suspected) exposure to COVID-19; Z79.82 Long term (current) use of aspirin; Z79.899 Other long term (current) drug therapy
CPT/HCPCS: 0241U; 36415; 70450; 71045; 80048; 80076; 81001; 82140; 82803; 83735; 83880; 84443; 84484; 85025; 86140; 87040; 87086; 87088; 87186; 90935; 90999; 93005; 97116; 97162; 99285; J0696; J1644

== ENCOUNTER → 2023-12-01 08:49 | Outpatient (BNV) | payer MEDICARE, MEDICAID, SELFPAY | PROVIDERS: Emergency Provider Emergency Medicine; Visit Provider Internal Medicine Cardiovascular Disease | DX: R94.31 Abnormal electrocardiogram [ECG] [EKG] (principal); R41.82 Altered mental status, unspecified | CPT/HCPCS: 93010 ==

== ENCOUNTER → 2023-12-01 17:51 | Outpatient (BNV) | payer MEDICARE, MEDICAID, SELFPAY | PROVIDERS: Admitting Provider Physician Assistant; Emergency Provider Emergency Medicine; PCP Internal Medicine; Visit Provider Internal Medicine Hypertension Specialist | DX: N18.6 End stage renal disease (principal); Z99.2 Dependence on renal dialysis; N39.0 Urinary tract infection, site not specified; R53.81 Other malaise; R29.6 Repeated falls | CPT/HCPCS: 90935; 99222; 99231 ==

== ENCOUNTER → 2023-12-01 17:51 | Outpatient (BNV) | payer MEDICARE, MEDICAID, SELFPAY | PROVIDERS: Admitting Provider Physician Assistant; Emergency Provider Emergency Medicine; Visit Provider Physician Assistant | DX: N18.6 End stage renal disease (principal); F03.90 Unspecified dementia, unspecified severity, without behavioral disturbance, psychotic disturbance, mood disturbance, and anxiety; G93.41 Metabolic encephalopathy; N39.0 Urinary tract infection, site not specified; R53.1 Weakness | CPT/HCPCS: 99222; 99232; 99239 ==

== ENCOUNTER 2024-08-27 22:25 | Inpatient (IN) | payer MEDICARE, MEDICAID, SELFPAY ==
--- NOTE | 2024-08-27 | ECG_ITS ---
Test Reason : AMS Blood Pressure : / mmHG Vent. Rate : 073 BPM Atrial Rate : 073 BPM P-R Int : 210 ms QRS Dur : 080 ms QT Int : 408 ms P-R-T Axes : 082 -20 050 degrees QTc Int : 449 ms Sinus rhythm with 1st degree A-V block Inferior infarct , age undetermined Abnormal ECG When compared with ECG of 01-DEC-2023 08:58, Sinus rhythm has replaced Junctional rhythm Inferior infarct is now Present Referred By: Ruddy Chowdary Electronically Signed By:SHELLY ARAGON
--- NOTE | ~2024-08-27 | XR_ITS ---
EXAMINATION: XR CHEST CLINICAL INFORMATION: Pneumonia. COMPARISON: None available. TECHNIQUE: Frontal view of the chest was obtained. FINDINGS: Lungs are clear. No pulmonary vascular congestion. There is no pleural effusion. The heart size is normal. The cardiac and mediastinal contours are normal. There are calcifications of the thoracic aorta. There are multilevel degenerative changes of dorsal spine. Vascular stent in the left axillary soft tissues. XR/XR chest 1V IMPRESSION: Unremarkable examination. Electronically signed by: Tucker Blackwell MD 08/28/2024 12:09 AM EDT
--- NOTE | ~2024-08-27 | CT_ITS ---
EXAMINATION: CT ABDOMEN AND PELVIS WITHOUT CONTRAST CLINICAL INFORMATION: Elevated liver function tests. Pain. Altered mental status. COMPARISON: September 08, 2023. TECHNIQUE: Multidetector volumetric imaging was performed from the superior aspect of the liver through the pubic symphysis. Sagittal and coronal reformatted images were obtained on the technologist's workstation. This CT examination was performed using dose optimization techniques as appropriate, variously including the following: *Automated exposure control *Adjustment of mA and/or kV according to patient size (this includes techniques or standardized protocols for targeted exams where dose is matched to indication/reason for exam; i.e. extremities or head) *Use of iterative reconstruction technique DLP: 951 mGy-cm FINDINGS: LUNG BASES: The visualized lung bases are unremarkable. LIVER, GALLBLADDER, AND BILIARY TREE: The liver is normal in size, shape, and attenuation. No focal hepatic lesion or biliary ductal dilatation is present. There has been a prior cholecystectomy. PANCREAS: Unremarkable. SPLEEN: Unremarkable. ADRENAL GLANDS: Unremarkable. KIDNEYS AND URETERS: Both kidneys are small/atrophic. There is a 2.1 cm cyst upper pole left kidney. There is no hydronephrosis. BLADDER: The urinary bladder is decompressed with a Alexis catheter in place. GASTROINTESTINAL TRACT: The small and large bowel are unremarkable. The appendix is borderline in size measuring 6 to 7 mm but otherwise unremarkable. There is no periappendiceal infiltration. ABDOMINAL WALL: No significant hernia is appreciated. LYMPH NODES: Normal. VASCULAR: There is atherosclerotic plaque throughout the abdominal aorta and proximal branches. PELVIC VISCERA: There is a 4.3 cm left adnexal cystic structure previously measuring 6.2 cm. OSSEOUS STRUCTURES: There is diffuse thoracolumbar degenerative change. There is a moderate L1 compression fracture with mild interval progression compared to prior. CT/CT abdomen pelvis wo IV con IMPRESSION: 1. No acute intra-abdominal or pelvic abnormality. 2. The appendix is borderline in size measuring 6 to 7 mm but otherwise unremarkable. There is no periappendiceal infiltration. 3. There is a 4.3 cm left adnexal cystic structure previously measuring 6.2 cm. 4. There is a moderate L1 compression fracture with mild interval progression compared to prior. Fleischner guidelines were followed. Electronically signed by: Abelardo Bauer MD 08/28/2024 04:26 AM EDT
--- NOTE | ~2024-08-27 | CT_ITS ---
EXAMINATION: CT ABDOMEN AND PELVIS WITHOUT CONTRAST CLINICAL INFORMATION: Abdominal pain COMPARISON: CT abdomen and pelvis August 28, 2024 TECHNIQUE: Multidetector volumetric imaging was performed from the superior aspect of the liver through the pubic symphysis. Sagittal and coronal reformatted images were obtained on the technologist's workstation. This CT examination was performed using dose optimization techniques as appropriate, variously including the following: *Automated exposure control *Adjustment of mA and/or kV according to patient size (this includes techniques or standardized protocols for targeted exams where dose is matched to indication/reason for exam; i.e. extremities or head) *Use of iterative reconstruction technique DLP: 956 mGy-cm FINDINGS: LUNG BASES: The visualized lung bases are unremarkable. LIVER, GALLBLADDER, AND BILIARY TREE: The liver is normal in size, shape, and attenuation. No focal hepatic lesion or biliary ductal dilatation is present. The gallbladder is surgically absent. PANCREAS: Unremarkable. SPLEEN: Unremarkable. ADRENAL GLANDS: Unremarkable. KIDNEYS AND URETERS: The kidneys are atrophic bilaterally BLADDER: Unremarkable. GASTROINTESTINAL TRACT: Large stool ball in the rectum. Multiple fluid-filled loops of ileum with no discrete transition point. ABDOMINAL WALL: No significant hernia is appreciated. LYMPH NODES: Normal. VASCULAR: Extensive osteophytic plaque at the origins of the celiac artery and SMA. PELVIC VISCERA: Unchanged simple cyst in the left adnexa 4.2 cm. OSSEOUS STRUCTURES: Unchanged chronic height loss at L1 CT/CT abdomen pelvis wo IV con IMPRESSION: 1. Multiple fluid-filled loops of ileum with no discrete transition point, most consistent with ileus. 2. Large stool ball in the rectum. 3. Cystic structure in the left adnexa measuring 4.2 cm. While almost certainly benign, yearly follow-up ultrasound is recommended. Fleischner guidelines were followed. Electronically signed by: Dillon Kurtz MD 09/03/2024 03:35 PM EDT
--- NOTE | ~2024-08-27 | CT_ITS ---
EXAMINATION: CT HEAD WITHOUT CONTRAST CLINICAL INFORMATION: Altered mental status. Seizures. COMPARISON: CT head December 01, 2023 TECHNIQUE: Contiguous axial imaging was performed from the skull base to vertex without intravenous administration of contrast. Coronal and sagittal reformatted images are performed at the CT scanner. This CT examination was performed using dose optimization techniques as appropriate, variously including the following: *Automated exposure control *Adjustment of mA and/or kV according to patient size (this includes techniques or standardized protocols for targeted exams where dose is matched to indication/reason for exam; i.e. extremities or head) *Use of iterative reconstruction technique DLP: 680 mGy-cm. FINDINGS: There is no evidence of acute intracranial hemorrhage or territorial infarction. No abnormal mass-effect or midline shift is seen. Guevara to white matter differentiation is well preserved. No extra-axial fluid collections are identified. The ventricles are normal in size. There is no abnormal attenuation within the brain parenchyma. There is no osseous abnormality. The mastoid air cells and visualized portions of the paranasal sinuses are well-aerated. CT/CT head/brain wo IV con IMPRESSION: No acute intracranial pathology. Electronically signed by: Tucker Blackwell MD 08/28/2024 12:51 AM EDT
--- NOTE | ~2024-08-27 | US_ITS ---
EXAMINATION: US ABDOMEN LIMITED CLINICAL INFORMATION: Elevated liver function tests. COMPARISON: None available. TECHNIQUE: Real-time imaging of the right upper quadrant abdominal viscera. FINDINGS: PANCREAS: The visualized portions of the pancreas are normal in appearance. The tail the pancreas is obscured by bowel gas. LIVER: The visualized liver is normal in appearance. The liver is normal in size. The liver contour is normal. Parenchymal echogenicity is normal. No focal hepatic lesion. There is no intrahepatic biliary duct dilatation seen. GALLBLADDER: There has been a prior cholecystectomy. COMMON BILE DUCT: Normal in caliber measuring 0.6 cm in diameter. RIGHT KIDNEY: The visualized right kidney is small in size measuring 7 cm. There is no hydronephrosis. FREE FLUID: None. US/US abdomen limited IMPRESSION: The visualized portions of the liver are normal in appearance. The right kidney is small in size measuring 7 cm. There has been a prior cholecystectomy. Electronically signed by: Abelardo Bauer MD 08/28/2024 02:41 AM EDT
--- NOTE | ~2024-08-27 | CT_ITS ---
EXAMINATION: CT HEAD WITHOUT CONTRAST CLINICAL INFORMATION: Lethargy. COMPARISON: CT scan of the head 08/28/2024. TECHNIQUE: Contiguous axial imaging was performed from the skull base to vertex without intravenous administration of contrast. This CT examination was performed using dose optimization techniques as appropriate, variously including the following: *Automated exposure control *Adjustment of mA and/or kV according to patient size (this includes techniques or standardized protocols for targeted exams where dose is matched to indication/reason for exam; i.e. extremities or head) *Use of iterative reconstruction technique DLP: 1672 mGy-cm FINDINGS: There is no acute intracranial hemorrhage or abnormal extra-axial collection. No intracranial mass effect or midline shift. Lateral and third ventricles are normal. No hydrocephalus. Guevara-white matter differentiation is grossly preserved and there is no evidence of an acute territorial infarct. The calvarium and skull base are intact. Mastoid air cells and middle ear cavities are well aerated. CT/CT head/brain wo IV con IMPRESSION: Normal CT scan of the head. Electronically signed by: Jesús Ornelas MD 09/03/2024 02:57 PM EDT
--- NOTE | 2024-08-27 22:33 | ED_ITS ---
<Statement entered by Michi Quinonez MD - 08/28/24 19:36> The patient was signed out to me at change of shift pending the results of a CT of the abdomen and pelvis to look for a possible intra-abdominal source of fever or a surgical process. The plan was for the patient to be admitted to the intensive care unit if the CT of the abdomen and pelvis showed nothing surgical. The CT of the abdomen and pelvis was done and this was negative and the patient was admitted to the intensive care unit. HPI - Altered Mental Status General Chief Complaint: General Medical Stated Complaint: AMS unk how long, had dialysis yesterday Time Seen by Provider: 08/27/24 22:27 Source: EMS and RN notes reviewed Mode of arrival: EMS Limitations: altered mental status History of Present Illness ED Provider: nanette HPI narrative: 88-year-old female with history of unspecified dementia, ESR D on dialysis MWF, hypertension, COPD, hyperlipidemia, unspecified mood disorder DNR DNI came from [facility] home for change in mental status and more lethargic patient apparently had dialysis yesterday patient apparently was twitching at snf and had 80% pulse ox at room air and was saturating 80% at room air Related Data Home Medications ?Medication ?Instructions ?Recorded ?Confirmed aspirin 81 mg tablet,delayed 81 mg PO DAILY 01/24/23 12/01/23 release sevelamer carbonate 800 mg tablet 1 tab PO TID 01/24/23 12/01/23 venlafaxine 150 mg tablet,extended 1 tab PO DAILY 01/24/23 12/01/23 release 24 hr atorvastatin 40 mg tablet 40 mg PO DAILY 07/24/23 12/01/23 propranolol 20 mg tablet 20 mg PO BID 07/24/23 12/01/23 lorazepam 0.5 mg tablet 0.5 mg PO DAILY@1700 09/08/23 12/01/23 acetaminophen 500 mg tablet 1,000 mg PO Q8H PRN Pain 12/01/23 12/01/23 diphenhydramine HCl 25 mg tablet 25 mg PO BEDTIME 12/01/23 12/01/23 melatonin 10 mg tablet 10 mg PO BEDTIME 12/01/23 12/01/23 Previous Rx's ?Medication ?Instructions ?Recorded compr.stocking,knee,long,small #2 ea 08/20/21 (T.E.D. Knee [facility]) bupropion HCl 150 mg 24 hr tablet, 150 mg PO QAM #30 tabs 11/17/23 extended release amoxicillin 500 mg capsule 500 mg PO TID #15 caps 12/08/23 Allergies Allergy/AdvReac Type Severity Reaction Status Date / Time No Known Allergies Allergy Verified 08/27/24 22:55 Review of Systems 2 Review of Systems: Yes Unobtainable due to mental status PMFSH Past Medical History Medical History End stage renal disease UTI (urinary tract infection) Multiple falls Physical deconditioning ESRD (end stage renal disease) on dialysis Generalized anxiety disorder Panic disorder Primary dysthymia late onset Chronic kidney disease (CKD) Bacteremia Acute hyperkalemia Weakness High cholesterol COPD (chronic obstructive pulmonary disease) Kidney disease HTN (hypertension) Social History Social History Household Members: Family Housing: House Do you presently have visiting nurse or other home services: Yes Alcohol intake: never Patient Tobacco Use Status: Never used Tobacco Advance Directives: Yes Advance Directives on File: Yes Advance Directives Date on File: 08/26/21 service: No Current occupational status: retired Physical Exam ED Vital Signs: Vital Signs - 24 hr 08/27/24 22:45 08/27/24 23:27 08/27/24 23:40 Temperature 99.2 F Pulse Rate 72 68 Respiratory Rate 16 15 Blood Pressure 94/69 92/44 L Pulse Oximetry 95 95 84 L Oxygen Delivery Method Room Air Room Air Room Air Oxygen Flow Rate 08/27/24 23:42 08/28/24 00:29 08/28/24 01:03 Temperature 98.2 F 98.2 F Pulse Rate 64 71 Respiratory Rate 16 16 Blood Pressure 90/44 L 84/22 L Pulse Oximetry 100 100 100 Oxygen Delivery Method Oxymask Oxymask Oxymask Oxygen Flow Rate 4 4 4 08/28/24 01:23 08/28/24 01:32 08/28/24 01:42 Temperature 97.9 F Pulse Rate 69 70 Respiratory Rate 17 Blood Pressure 85/24 L 78/24 L 72/26 L Pulse Oximetry 100 Oxygen Delivery Method Oxymask Oxygen Flow Rate 4 08/28/24 01:47 08/28/24 01:50 08/28/24 02:02 Temperature Pulse Rate 70 72 75 Respiratory Rate Blood Pressure 90/21 L 137/49 L 146/51 H Pulse Oximetry Oxygen Delivery Method Oxygen Flow Rate 08/28/24 02:07 Temperature 97.5 F Pulse Rate 77 Respiratory Rate 19 Blood Pressure 133/49 L Pulse Oximetry 100 Oxygen Delivery Method Oxymask Oxygen Flow Rate 4 BMI result Body Mass Index 30.8 Appearance: Slow to respond. Lethargic Eyes: No Nystagmus ENT: Pharynx normal. Oral Mucosa dry Neck: Normal inspection. Neck supple. CVS: Normal heart rate and rhythm. Pulses normal. Respiratory: No respiratory distress. Equal air entry bilateral, no wheezing/rales/rhonchi Abdomen: Soft and nontender. Bowel sounds are present, no mass palpable, no CVA tenderness Skin: Skin warm and dry. Normal skin color. Normal skin turgor. Extremities: No lower extremity edema. No calf tenderness Neuro: Lethargic slow to respond moving all extremity to painful stimuli twitching movements of all 4 extremities Medications Administered Generic Name Dose Route Start Last Admin Trade Name Freq PRN Reason Stop Dose Admin Norepinephrine Bitartrate 8 mg in 250 mls @ 0 mls/hr 08/28/24 01:45 08/28/24 02:02 Levophed IVCONT 0.05 mcg/kg/min .Q0M JORDY 7.41 mls/hr Titration Protocol Per Protocol Vancomycin HCl 1,000 mg/ 270 mls @ 270 mls/hr 08/28/24 01:46 08/28/24 01:54 Sodium Chloride IV 08/28/24 02:45 270 mls/hr ONCE ONE Administration Discontinued Medications Generic Name Dose Route Start Last Admin Trade Name Freq PRN Reason Stop Dose Admin Sodium Chloride 500 mls @ 250 mls/hr 08/27/24 23:02 08/28/24 00:28 Ns IVCONT 08/28/24 01:01 Infused .Q2H ONE Infusion Ceftriaxone Sodium 1 gm/ 50 mls @ 100 mls/hr 08/27/24 23:31 08/28/24 00:29 Sodium Chloride IV 08/28/24 00:00 Infused ONCE ONE Infusion Sodium Chloride 1,000 mls @ 999 mls/hr 08/28/24 01:05 08/28/24 01:54 Ns IV 08/28/24 02:05 Infused .Q1H1M ONE Infusion Midazolam HCl 1 mg 08/27/24 23:01 08/27/24 23:06 Midazolam Hcl/Pf 2 Mg/2 Ml Vial IVPUSH 08/27/24 23:02 1 mg ONCE ONE Administration Medical Decision Making Medical Decision Making [facility] Narrative: Patient with end-stage renal disease with hypotension with urinary tract infection with elevated LFT etiology not very clear likely Gram-negative bacteremia started on Rocephin and vancomycin Dr. 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 after CT scan result patient remained hypotensive as she is in end-stage renal disease will limit IV fluids she received about 1 L of IV fluids without much response started on Levophed drip Differential Diagnosis Differential Diagnoses: The differential diagnosis associated with the presentation includes Gram-negative bacteremia/pneumonia/cholecystitis/UTI Admission/Observation Consideration of admission/observation: Escalation of care including admission/observation considered Consult Healthcare Provider Management of the patient was discussed with: Regional Medical Director Rn Mds dr Lanier Lab Data [facility] Lab Attestation statement: I reviewed the patient's lab results. 08/28/24 00:13 08/28/24 00:38 Labs: Lab Results 08/27/24 08/27/24 08/27/24 Range/Units 22:31 22:38 23:38 WBC (4.8-10.8) X10*3/uL RBC (4.20-5.50) X10*6/uL Hgb (12.0-16.0) g/dl Hct (37.0-47.0) % MCV (80.0-98.0) fL MCH (27.0-33.0) pg MCHC (31.0-35.0) g/dl RDW (11.0-16.0) % Plt Count (160-400) X10*3/uL MPV (9.4-12.3) fL Immature Gran % (Auto) (0.0-0.4) % Neut % (Auto) (45-73) % Lymph % (Auto) (20-40) % [place] % (Auto) (2-11) % Eos % (Auto) (0-4) % Baso % (Auto) (0-2) % Lymph # (Auto) (1.2-4.9) X10*3/uL [place] # (Auto) (0.1-1.2) X10*3/uL Eos # (Auto) (0.0-0.4) X10*3/uL Baso # (Auto) (0.0-0.2) X10*3/uL Abs Immat Gran (auto) (0.00-0.03) X10*3/uL Absolute Neuts (auto) (2.0-8.3) x10*3/uL Absolute Nucleated RBC (0.0-0.012) X10*3/uL Nucleated RBC % (auto) (0.0-0.2) /100WBC Hold Purple Top SEE NOTE Hold Blue Top SEE NOTE Sodium Potassium Chloride Carbon Dioxide Anion Gap BUN Creatinine Estim Creat Clear Calc Estimated GFR POC Glucose 83 (60-115) mg/dL Random Glucose Lactic Acid (0.5-2.0) mmol/L Calcium Total Bilirubin AST ALT Alkaline Phosphatase Troponin I High Sens (<3.5-17.0) ng/L Total Protein Albumin Urine Color Urine Appearance Urine pH (5.0-9.0) Ur Specific [place] (1.005-1.025) Urine Protein (Neg-Trace) mg/dL Urine Glucose (UA) (Negative) mg/dL Urine Ketones (Negative) mg/dL Urine Blood (Negative) Urine Nitrite (Negative) Ur Leukocyte Esterase (Negative) Urine RBC (0-2) /HPF Urine WBC (0-5) /HPF Ur Squamous Epith Cells (0-2) /HPF Urine Bacteria (None Seen) Hyaline Casts (0-2) /LPF Granular Casts WBC Casts COVID-19 (AMANDA) (Negative) COVID-19 Clin Com Blood Type Antibody Screen 08/27/24 08/28/24 08/28/24 Range/Units 23:39 00:13 00:38 WBC 3.6 L 7.5 (4.8-10.8) X10*3/uL RBC 1.67 L D 3.40 L D (4.20-5.50) X10*6/uL Hgb 5.5 L* D 10.9 L D (12.0-16.0) g/dl Hct 17.9 L* D 34.8 L D (37.0-47.0) % MCV 107.2 H 102.4 H (80.0-98.0) fL MCH 32.9 32.1 (27.0-33.0) pg MCHC 30.7 L 31.3 (31.0-35.0) g/dl RDW 15.1 15.5 (11.0-16.0) % Plt Count 74 L D 155 L D (160-400) X10*3/uL MPV 9.5 10.0 (9.4-12.3) fL Immature Gran % (Auto) 0.3 0.5 H (0.0-0.4) % Neut % (Auto) 84.2 H 81.8 H (45-73) % Lymph % (Auto) 6.9 L 7.7 L (20-40) % [place] % (Auto) 7.5 8.1 (2-11) % Eos % (Auto) 0.8 1.6 (0-4) % Baso % (Auto) 0.3 0.3 (0-2) % Lymph # (Auto) 0.3 L 0.6 L (1.2-4.9) X10*3/uL [place] # (Auto) 0.3 0.6 (0.1-1.2) X10*3/uL Eos # (Auto) 0.0 0.1 (0.0-0.4) X10*3/uL Baso # (Auto) 0.0 0.0 (0.0-0.2) X10*3/uL Abs Immat Gran (auto) 0.01 0.04 H (0.00-0.03) X10*3/uL Absolute Neuts (auto) 3.0 6.1 (2.0-8.3) x10*3/uL Absolute Nucleated RBC 0.000 0.000 (0.0-0.012) X10*3/uL Nucleated RBC % (auto) 0.0 0.0 (0.0-0.2) /100WBC Hold Purple Top Hold Blue Top Sodium Cancelled 144 Potassium Cancelled 4.4 Chloride Cancelled 101 Carbon Dioxide Cancelled 30 H Anion Gap Cancelled 17 BUN Cancelled 29 H Creatinine Cancelled 4.97 H* Estim Creat Clear Calc Cancelled 8.1 Estimated GFR Cancelled 8 POC Glucose (60-115) mg/dL Random Glucose Cancelled 72 Lactic Acid 0.7 (0.5-2.0) mmol/L Calcium Cancelled 9.6 Total Bilirubin Cancelled 0.6 AST Cancelled 842 H ALT Cancelled 466 H Alkaline Phosphatase Cancelled 212 H Troponin I High Sens 15.1 D (<3.5-17.0) ng/L Total Protein Cancelled 5.7 L Albumin Cancelled 3.0 L Urine Color Dark Yellow Urine Appearance Turbid Urine pH 7.5 (5.0-9.0) Ur Specific [place] 1.015 (1.005-1.025) Urine Protein 300 (3+) H (Neg-Trace) mg/dL Urine Glucose (UA) Negative (Negative) mg/dL Urine Ketones Trace (Negative) mg/dL Urine Blood Negative (Negative) Urine Nitrite Negative (Negative) Ur Leukocyte Esterase Large (3+) H (Negative) Urine RBC 3-5 H (0-2) /HPF Urine WBC >50 H (0-5) /HPF Ur Squamous Epith Cells 11-20 (0-2) /HPF Urine Bacteria 4+ (None Seen) Hyaline Casts 11-20 (0-2) /LPF Granular Casts Present WBC Casts Present COVID-19 (AMANDA) Negative (Negative) COVID-19 Clin Com See Note Blood Type A Positive Antibody Screen NEGATIVE Independent Interpretation I performed an independent interpretation of an: CT Scan Radiology Impression Discussion of test interpretation with radiology: I have reviewed the radiologist's reading. Radiologist Impression: [place] [id number] CT Scan Report Signed Patient: Naomy Doty MR#: [id number] : 1935 Acct:[id number] Age/Sex: 88 / F ADM Date: 08/27/24 Loc: HO.ED Attending Dr: Ordering Physician: Ruddy Chowdary MD Date of Service: 08/28/24 Procedure(s): CT head/brain wo IV con Accession Number(s): [id number] cc: Jeet Coy MD; Ruddy Chowdary MD~ EXAMINATION: CT HEAD WITHOUT CONTRAST CLINICAL INFORMATION: Altered mental status. Seizures. COMPARISON: CT head December 01, 2023 TECHNIQUE: Contiguous axial imaging was performed from the skull base to vertex without intravenous administration of contrast. Coronal and sagittal reformatted images are performed at the CT scanner. This CT examination was performed using dose optimization techniques as appropriate, variously including the following: *Automated exposure control *Adjustment of mA and/or kV according to patient size (this includes techniques or standardized protocols for targeted exams where dose is matched to indication/reason for exam; i.e. extremities or head) *Use of iterative reconstruction technique DLP: 680 mGy-cm. FINDINGS: There is no evidence of acute intracranial hemorrhage or territorial infarction. No abnormal mass-effect or midline shift is seen. Guevara to white matter differentiation is well preserved. No extra-axial fluid collections are identified. The ventricles are normal in size. There is no abnormal attenuation within the brain parenchyma. There is no osseous abnormality. The mastoid air cells and visualized portions of the paranasal sinuses are well-aerated. CT/CT head/brain wo IV con IMPRESSION: No acute intracranial pathology. Electronically signed by: Tucker Blackwell MD 08/28/2024 12:51 AM EDT RP [place] [id number] XRay Report Signed Patient: Naomy Doty MR#: [id number] : 1935 Acct:[id number] Age/Sex: 88 / F ADM Date: 08/27/24 Loc: HO.ED Attending Dr: Ordering Physician: Ruddy Chowdary MD Date of Service: 08/27/24 Procedure(s): XR chest 1V Accession Number(s): [id number] cc: Jeet Coy MD; Ruddy Chowdary MD~ EXAMINATION: XR CHEST CLINICAL INFORMATION: Pneumonia. COMPARISON: None available. TECHNIQUE: Frontal view of the chest was obtained. FINDINGS: Lungs are clear. No pulmonary vascular congestion. There is no pleural effusion. The heart size is normal. The cardiac and mediastinal contours are normal. There are calcifications of the thoracic aorta. There are multilevel degenerative changes of dorsal spine. Vascular stent in the left axillary soft tissues. XR/XR chest 1V IMPRESSION: Unremarkable examination. Electronically signed by: Tucker Blackwell MD 08/28/2024 12:09 AM EDT RP Critical Care Time Critical Care Time Critical Care Time: Yes Total Critical Care Time: 55 Attestation: The patient was critically ill with a high probability of imminent or life threatening deterioration. I spent greater than 60???minutes of discontinuous time evaluating the patient,delivering critical care at the bedside, discussing and evaluating pertinent data with consultants. Critical care time does not include time spent performing separately billable procedures or teaching. Total time spent performing critical care was ?55??minutes. Discharge Plan Discharge Clinical Impression: Acute UTI, Acute metabolic encephalopathy, End stage chronic kidney disease, Elevated LFTs Patient Disposition: Admitted As Inpatient Print Language: Kyrgyz
[2024-08-27 22:45] VITALS: BP 94/69; PULSE 72; RESP 16; O2SAT 95; BMI 30.8
[2024-08-27] MEDS: Midazolam HCl/PF 2 MG/2 ML VIAL 1 MG IVPUSH (23:06)
[2024-08-27] MEDS: 0.9 % Sodium Chloride 500 ML 250 ML IVCONT (23:07)
[2024-08-27 23:27] VITALS: BP 92/44; PULSE 68; RESP 15; TEMP 37.3; O2SAT 95
--- NOTE | 2024-08-27 23:28 | PC.NURSE ---
>15 attempts to obtain labs and unable to. MD made aware after 2x attempts.
[2024-08-27 23:40] VITALS: O2SAT 84
[2024-08-27 23:42] VITALS: O2SAT 100
[2024-08-27] MEDS: cefTRIAXone sodium 1 GM in 0.9 % Sodium Chloride 50 ML IV (23:47)
[2024-08-27 23:48] LABS: MANUAL DIFF FLAG NO
[2024-08-27 23:55] LABS: Glucose, Whole Blood 83 mg/dL (60-115)
[2024-08-27 23:59] LABS: Appearance Urine Turbid; Color Urine Dark Yellow; Glucose Urine UA Negative (Negative); Leukocyte Esterase Urine Large (3+) (Negative); Nitrite Urine Negative (Negative); PH 7.5 (5.0-9.0); Specific Gravity - Urine 1.015 (1.005-1.025); UMIC TRIGGER UACC YES; Urine Blood Negative (Negative); Urine Ketones Trace mg/dL (Negative); Urine Protein 300 (3+) mg/dL (Neg-Trace)
[2024-08-28] VITALS (50 sets, daily range): BP systolic 58–180; BP diastolic 13–82; PULSE 63–89; RESP 12–20; TEMP 36.4–37.7; O2SAT 92–100; BMI 33.0; BMI 31.5
[2024-08-28 00:04] LABS: Lactic Acid 0.7 mmol/L (0.5-2.0)
[2024-08-28 00:09] LABS: Bacteria Urine 4+ (None Seen); Granular Casts Urine Present; UACC Culture Trigger YES; WBC Urine >50 /HPF (0-5); White Blood Cell Casts Urine Present
[2024-08-28 00:11] LABS: COVID-19 Test Negative (Negative); IDNOW Serial# 9DB6401D
[2024-08-28 00:18] LABS: MANUAL DIFF FLAG NO
[2024-08-28 00:19] LABS: Basophils Percent Auto 0.3 % (0-2); Eosinophils Absolute Auto 0.1 X10*3/uL (0.0-0.4); Eosinophils Percent Auto 1.6 % (0-4); Hematocrit 34.8 % (37.0-47.0); Hemoglobin 10.9 g/dl (12.0-16.0); Imm Gran Abs Auto 0.04 X10*3/uL (0.00-0.03); Imm Gran Pct Auto 0.5 % (0.0-0.4); Lymphocytes Absolute Auto 0.6 X10*3/uL (1.2-4.9); Lymphocytes Percent Auto 7.7 % (20-40); Mean Corpuscular HGB Conc 31.3 g/dl (31.0-35.0); Mean Corpuscular Hemoglobin 32.1 pg (27.0-33.0); Mean Corpuscular Volume 102.4 fL (80.0-98.0); Monocytes Absolute Auto 0.6 X10*3/uL (0.1-1.2); Monocytes Percent Auto 8.1 % (2-11); Neutrophils Absolute Auto 6.1 x10*3/uL (2.0-8.3); Neutrophils Percent Auto 81.8 % (45-73); Platelet Count 155 X10*3/uL (160-400); Red Cell Distribution Width 15.5 % (11.0-16.0); White Blood Count 7.5 X10*3/uL (4.8-10.8)
--- NOTE | 2024-08-28 00:30 | PC.NURSE ---
Late entry: pt was brought in by ems from [facility] with very vague report. on arrival pt is grimacing and twitching, has moments of tensing up. MD Chowdary to bedside on ems arrival. multiple attempts to establish IV/ obtain labs, pt difficult stick. obtained ivs as documented. Versed given ?seizure activity by MD. 2340 pt found to be 84% on RA, placed on 4L oxymask. sats up 100%. at this point unable to obtain BP via monitor. manual bp as documented. per MD verbal order 16fr temp sensing caraballo placed and ua sent to lab. 0010 - labs resulted and assumed to be incorrect by MD, placed ej to R. neck and obtained repeat labs and sent to lab. redness noted to bilat heels, elevated with pillow. redness noted to coccyx, pillow placed by attempting to keep pt supine for accurate BP reads.
--- NOTE | 2024-08-28 01:06 | PC.NURSE ---
Dr. Chowdary aware of bp
[2024-08-28] MEDS: 0.9 % Sodium Chloride 1,000 ML 999 ML IV (01:07)
[2024-08-28 01:10] LABS: Troponin-I High Sensitivity 15.1 ng/L (<3.5-17.0)
[2024-08-28 01:19] LABS: Alanine Aminotransferase 466 U/L (0-31); Alkaline Phosphatase 212 U/L (39-117); Anion Gap 17 (12-20); Aspartate Amino Transferase 842 U/L (5-31); Bilirubin Total 0.6 mg/dL (0.0-1.0); Blood Urea Nitrogen 29 mg/dL (9-16); Calcium 9.6 mg/dL (8.4-10.2); Carbon Dioxide 30 mmol/L (22-29); Chloride 101 mmol/L (96-108); Creatinine Clr Calc Pharmacy 8.1; Estimated Glomerular Filt Rate 8; Glucose Random 72 mg/dL (60-115); Potassium 4.4 mmol/L (3.3-5.1); Sodium 144 mmol/L (135-145); Total Protein 5.7 g/dL (6.5-8.0)
--- NOTE | 2024-08-28 01:33 | PC.NURSE ---
Addendum entered by Ella Glass 08/28/24 02:11: norepi started per jan and titrations as documented. Original Note: Dr. Chowdary aware of last bps low in 80s systolic.
[2024-08-28] MEDS: Norepinephrine Bitartrate/D5W 8 MG/250 ML PLAST..BAG 7.41 MG IVCONT (01:42)
[2024-08-28] MEDS: vancomycin HCL 1,000 MG in 0.9 % Sodium Chloride 250 ML 270 MG IV ×2 (01:54→08:32)
[2024-08-28 03:08] LABS: Glucose, Whole Blood 77 mg/dL (60-115)
--- NOTE | 2024-08-28 05:23 | P.HPCC_ITS ---
History of Present Illness Date of Service: 08/28/24 Attending physician on admission: Nisa Lanier Chief Complaint: Altered Mental Status Ms. Lewis is a 88-year-old female with history of unspecified dementia, ESRD on dialysis MWF, hyperlipidemia, hypertension, COPD, hyperlipidemia, unspecified mood disorder? who was sent from [facility] for change in mental status and lethargy.? She had dialysis yesterday.? The assisted reported? that the patient appeared to be twitching and had an O2 sat of 80% on room air. On arrival to the ER, BP was?94/69, heart rate?72, respiratory rate?16, O2 sat 95% on room air.?Temp 99.2 F. Laboratory data significant for? BUN 29, creatinine 4.97, AST 842, ALT 466, alk- phos 212, total protein 5.7, albumin 3.0, lactic acid 0.7, Troponin 15.1.? UA indicative of a UTI. Influenza A & B, RSV, COVID negative. Imaging: ? Chest x-ray unremarkable. Head/ brain CT: no acute intracranial pathology. Abdominal ultrasound showed liver normal in appearance, prior cholecystectomy. CT abdomen pelvis revealed no acute intra-abdominal or pelvic abnormality. ED course: The patient received? 1.5 L normal saline, midazolam 1 mg, ceftriaxone 1 g, vancomycin 1 g. She remained hypotensive despite the IV fluids and was started on a Levophed drip. Review of Systems 2 Review of Systems: Yes Unobtainable due to mental condition PMFSH Past Medical History Medical History End stage renal disease UTI (urinary tract infection) Multiple falls Physical deconditioning ESRD (end stage renal disease) on dialysis Generalized anxiety disorder Panic disorder Primary dysthymia late onset Chronic kidney disease (CKD) Bacteremia Acute hyperkalemia Weakness High cholesterol COPD (chronic obstructive pulmonary disease) Kidney disease HTN (hypertension) Social History Social History Household Members: Family Housing: House Do you presently have visiting nurse or other home services: Yes Alcohol intake: never Patient Tobacco Use Status: Never used Tobacco Advance Directives: Yes Advance Directives on File: Yes Advance Directives Date on File: 09/27/21 service: No Current occupational status: retired Meds Allergies Allergy/AdvReac Type Severity Reaction Status Date / Time No Known Allergies Allergy Verified 08/27/24 22:55 Active Medications: Current Medications Heparin Sodium (Porcine) (Heparin Sodium,Porcine 5,000 Unit/Ml Vial) 5,000 unit SUBCUT Q12H JORDY Norepinephrine Bitartrate (Levophed) 8 mg in 250 mls @ 0 mls/hr IVCONT .Q0M JORDY; Protocol Last Titration: 08/28/24 05:16 Dose: 0.05 mcg/kg/min, 7.41 mls/hr Piperacillin Sod/Tazobactam (Sod 2.25 gm/ Sodium Chloride) 50 mls @ 100 mls/hr IV ONCE ONE Stop: 08/28/24 05:29 Home Medications ?Medication ?Instructions ?Recorded ?Confirmed ?Last Taken ?Type aspirin 81 mg tablet,delayed 81 mg PO DAILY 01/24/23 12/01/23 09/08/23 History release sevelamer carbonate 800 mg tablet 1 tab PO TID 01/24/23 12/01/23 09/08/23 History venlafaxine 150 mg tablet,extended 1 tab PO DAILY 01/24/23 12/01/23 09/08/23 History release 24 hr atorvastatin 40 mg tablet 40 mg PO DAILY 07/24/23 12/01/23 09/08/23 History propranolol 20 mg tablet 20 mg PO BID 07/24/23 12/01/23 09/08/23 History lorazepam 0.5 mg tablet 0.5 mg PO DAILY@1700 09/08/23 12/01/23 11/30/22 History acetaminophen 500 mg tablet 1,000 mg PO Q8H PRN Pain 12/01/23 12/01/23 Unknown History diphenhydramine HCl 25 mg tablet 25 mg PO BEDTIME 12/01/23 12/01/23 11/30/22 History melatonin 10 mg tablet 10 mg PO BEDTIME 12/01/23 12/01/23 11/30/22 History Physical Exam 2 Vital Signs: Vital Signs: Last Vital Signs Temp 98.2 F 08/28/24 05:00 Pulse 88 08/28/24 05:16 Resp 16 08/28/24 05:00 BP 166/82 H 08/28/24 05:16 Pulse Ox 100 08/28/24 05:00 O2 Del Method Oxymask 08/28/24 05:00 O2 Flow Rate 4 08/28/24 05:00 BMI result Body Mass Index 30.8 Const: General: lethargic Nutritional Appearance: obese O rientation/consciousness: lethargic HEENT: Head: Yes normocephalic and Yes atraumatic General nose exam: Normal external nose present (Nares patent, septum midline, sinuses nontender bilaterally.) Mouth: Abnormal oral and palatal mucosa present (dry) Eyes: General: appearance normal, both eyes and all related structures Neck: Neck: Yes supple (no thyromegaly, trachea midline.) Carotids: normal carotid upstroke Resp: Auscultation: no crackles, no rales, no rhonchi and diminished lung sounds bilateral Cardio: Jugular venous distension: no JVD Rate: regular rate Rhythm: r egular rhythm Heart sounds: no gallops, no murmurs and no rubs GI: Palpation (GI): Soft to palpation (nondistended.) and nontender A uscultation: normal bowel sounds Back/Spine/Pelvis: Pelvis: Other pelvic findings (erythema) Coccyx: Other pelvic findings (erythema) Skin: General skin exam: no rashes or lesions noted Nails: nails abnormal (cyanotic) Neuro: Other: Lethargic, opens eyes to painful stimuli General: moves all extremities (abnormal twitching all 4 extremities) C ranial nerves: Yes Nystagmus not present, Yes Midline tongue present and No Normal gag reflex present (no cough or gag) Extrem: General: No capillary refill normal (nail beds cyanotic) Results Labs 08/28/24 00:13 08/28/24 00:38 Labs: Laboratory Results - last 24 hr 08/27/24 08/27/24 08/27/24 22:31 22:38 23:38 MCV MCH MCHC RDW Plt Count MPV Immature Gran % (Auto) Neut % (Auto) Lymph % (Auto) Cobb % (Auto) Eos % (Auto) Baso % (Auto) Lymph # (Auto) Cobb # (Auto) Eos # (Auto) Baso # (Auto) Abs Immat Gran (auto) Absolute Neuts (auto) Absolute Nucleated RBC Nucleated RBC % (auto) Hold Purple Top SEE NOTE Hold Blue Top SEE NOTE Anion Gap Estim Creat Clear Calc Estimated GFR POC Glucose 83 Random Glucose Lactic Acid Calcium Total Bilirubin AST ALT Alkaline Phosphatase Troponin I High Sens Total Protein Albumin Urine Color Urine Appearance Urine pH Ur Specific [place] Urine Protein Urine Glucose (UA) Urine Ketones Urine Blood Urine Nitrite Ur Leukocyte Esterase Urine RBC Urine WBC Ur Squamous Epith Cells Urine Bacteria Hyaline Casts Granular Casts WBC Casts COVID-19 (AMANDA) COVID-19 Clin Com Blood Type Antibody Screen 08/27/24 08/28/24 08/28/24 23:39 00:13 00:38 MCV 107.2 H 102.4 H MCH 32.9 32.1 MCHC 30.7 L 31.3 RDW 15.1 15.5 Plt Count 74 L D 155 L D MPV 9.5 10.0 Immature Gran % (Auto) 0.3 0.5 H Neut % (Auto) 84.2 H 81.8 H Lymph % (Auto) 6.9 L 7.7 L Cobb % (Auto) 7.5 8.1 Eos % (Auto) 0.8 1.6 Baso % (Auto) 0.3 0.3 Lymph # (Auto) 0.3 L 0.6 L Cobb # (Auto) 0.3 0.6 Eos # (Auto) 0.0 0.1 Baso # (Auto) 0.0 0.0 Abs Immat Gran (auto) 0.01 0.04 H Absolute Neuts (auto) 3.0 6.1 Absolute Nucleated RBC 0.000 0.000 Nucleated RBC % (auto) 0.0 0.0 Hold Purple Top Hold Blue Top Anion Gap Cancelled 17 Estim Creat Clear Calc Cancelled 8.1 Estimated GFR Cancelled 8 POC Glucose Random Glucose Cancelled 72 Lactic Acid 0.7 Calcium Cancelled 9.6 Total Bilirubin Cancelled 0.6 AST Cancelled 842 H ALT Cancelled 466 H Alkaline Phosphatase Cancelled 212 H Troponin I High Sens 15.1 D Total Protein Cancelled 5.7 L Albumin Cancelled 3.0 L Urine Color Dark Yellow Urine Appearance Turbid Urine pH 7.5 Ur Specific [place] 1.015 Urine Protein 300 (3+) H Urine Glucose (UA) Negative Urine Ketones Trace Urine Blood Negative Urine Nitrite Negative Ur Leukocyte Esterase Large (3+) H Urine RBC 3-5 H Urine WBC >50 H Ur Squamous Epith Cells 11-20 Urine Bacteria 4+ Hyaline Casts 11-20 Granular Casts Present WBC Casts Present COVID-19 (AMANDA) Negative COVID-19 Clin Com See Note Blood Type A Positive Antibody Screen NEGATIVE 08/28/24 03:04 MCV MCH MCHC RDW Plt Count MPV Immature Gran % (Auto) Neut % (Auto) Lymph % (Auto) Cobb % (Auto) Eos % (Auto) Baso % (Auto) Lymph # (Auto) Cobb # (Auto) Eos # (Auto) Baso # (Auto) Abs Immat Gran (auto) Absolute Neuts (auto) Absolute Nucleated RBC Nucleated RBC % (auto) Hold Purple Top Hold Blue Top Anion Gap Estim Creat Clear Calc Estimated GFR POC Glucose 77 Random Glucose Lactic Acid Calcium Total Bilirubin AST ALT Alkaline Phosphatase Troponin I High Sens Total Protein Albumin Urine Color Urine Appearance Urine pH Ur Specific [place] Urine Protein Urine Glucose (UA) Urine Ketones Urine Blood Urine Nitrite Ur Leukocyte Esterase Urine RBC Urine WBC Ur Squamous Epith Cells Urine Bacteria Hyaline Casts Granular Casts WBC Casts COVID-19 (AMANDA) COVID-19 Clin Com Blood Type Antibody Screen Imaging Radiologist's Impressions: Impressions Chest X-Ray 08/27/24 22:37 IMPRESSION: Unremarkable examination. Electronically signed by: Tucker Blackwell MD 08/28/2024 12:09 AM EDT RP Head CT 08/28/24 00:26 IMPRESSION: No acute intracranial pathology. Electronically signed by: Tucker Blackwell MD 08/28/2024 12:51 AM EDT RP Abdomen Ultrasound 08/28/24 02:10 IMPRESSION: The visualized portions of the liver are normal in appearance. The right kidney is small in size measuring 7 cm. There has been a prior cholecystectomy. Electronically signed by: Abelardo Bauer MD 08/28/2024 02:41 AM EDT RP Abdomen/Pelvis CT 08/28/24 02:45 IMPRESSION: 1. No acute intra-abdominal or pelvic abnormality. 2. The appendix is borderline in size measuring 6 to 7 mm but otherwise unremarkable. There is no periappendiceal infiltration. 3. There is a 4.3 cm left adnexal cystic structure previously measuring 6.2 cm. 4. There is a moderate L1 compression fracture with mild interval progression compared to prior. Fleischner guidelines were followed. Electronically signed by: Abelardo Bauer MD 08/28/2024 04:26 AM EDT RP Assessment and Plan (1) Hypotension: Status: Acute (2) Acute metabolic encephalopathy: Status: Acute (3) Acute UTI: Status: Acute (4) Elevated LFTs: Status: Acute (5) End stage chronic kidney disease: Status: Acute Plan 88-year-old female with history of unspecified dementia, ESRD on dialysis MWF, hyperlipidemia, hypertension, COPD, hyperlipidemia, unspecified mood disorder presented to the emergency room for altered mental status and lethargy admitted to the ICU for management of hypotension requiring pressor support. Neuro:? Underlying unspecified dementia. Altered mental status, lethargy increased from baseline. Acute metabolic encephalopathy likely due to UTI.? Cardiac: Hypotensive.? Lactic acid 0.7.? Norepinephrine gtt; wean as tolerated. Pulmonary: Underlying COPD. No acute issues. Renal: ? 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 Monitor electrolytes, renal function, intake and output. Endo: No acute issues. GI: Transaminitis. Imaging unrevealing. Continue to trend LFTs. ID: ? UA appears consistent with UTI.? No sepsis.? Follow CBC, cultures.?Continue empiric antibiotics. Heme/Onc: ?No acute issues. Psych:? Unspecified mood disorder. Home meds on hold d/t lethargy?? Prophylaxis: Heparin/pneumatic hoses Diet:? NPO? Case discussed with attending Dr. Lanier. Total time managing care of this patient today: 60 minutes.
[2024-08-28] MEDS: Piperacillin Sodium/Tazobactam 2.25 GM in 0.9 % Sodium Chloride 50 ML IV (05:43)
[2024-08-28] MEDS: Heparin Sodium,Porcine 5,000 UNIT/ML VIAL 5000 UNIT SUBCUT ×2 (05:46→16:56)
--- NOTE | 2024-08-28 06:20 | PC.NURSE ---
Pt to ICU unresponsive to verbal stimuli, withdraws to pain, no speech, does not follow commands, pupils 2mm sluggishly reactive to light. O2 on at 4l oxymask. O2 sat 100%. O2 removed. Periods of shallow breathing and short periods of apnea noted but no drop in o2 sat. Hands and feet cool with dusky nailbeds. Pedal pulses palpable. Monitor show NSR, 80's, no ectopy. BP stable on levophed. Alexis cath in and emptied for 40ml. Analisa FILTRATION PLANT OPERATOR at bedside.
[2024-08-28 06:39] LABS: ABG Base Excess 7.4 mmol/L; ABG HCO3 33 mmol/L (22-26); ABG pCO2 51 mmHg (32-45); ABG pH 7.41 (7.35-7.45); ABG pO2 62 mmHg (83-108)
[2024-08-28 07:56] LABS: MANUAL DIFF FLAG NO
[2024-08-28 08:00] LABS: Basophils Percent Auto 0.4 % (0-2); Eosinophils Absolute Auto 0.2 X10*3/uL (0.0-0.4); Eosinophils Percent Auto 2.1 % (0-4); Hematocrit 39.8 % (37.0-47.0); Hemoglobin 12.4 g/dl (12.0-16.0); Imm Gran Abs Auto 0.04 X10*3/uL (0.00-0.03); Imm Gran Pct Auto 0.4 % (0.0-0.4); Lymphocytes Absolute Auto 1.4 X10*3/uL (1.2-4.9); Mean Corpuscular HGB Conc 31.2 g/dl (31.0-35.0); Mean Corpuscular Hemoglobin 32.1 pg (27.0-33.0); Mean Corpuscular Volume 103.1 fL (80.0-98.0); Mean Platelet Volume 9.6 fL (9.4-12.3); Monocytes Absolute Auto 1.1 X10*3/uL (0.1-1.2); Monocytes Percent Auto 10.4 % (2-11); Neutrophils Absolute Auto 7.9 x10*3/uL (2.0-8.3); Neutrophils Percent Auto 73.7 % (45-73); Platelet Count 184 X10*3/uL (160-400); Red Blood Count 3.86 X10*6/uL (4.20-5.50); Red Cell Distribution Width 15.5 % (11.0-16.0); White Blood Count 10.7 X10*3/uL (4.8-10.8)
[2024-08-28 08:17] LABS: Alanine Aminotransferase 441 U/L (0-31); Albumin Level 3.3 g/dL (3.5-5.0); Alkaline Phosphatase 232 U/L (39-117); Anion Gap 19 (12-20); Aspartate Amino Transferase 514 U/L (5-31); Bilirubin Total 0.8 mg/dL (0.0-1.0); Blood Urea Nitrogen 31 mg/dL (9-16); Calcium 9.9 mg/dL (8.4-10.2); Carbon Dioxide 28 mmol/L (22-29); Chloride 102 mmol/L (96-108); Creatinine Clr Calc Pharmacy 7.8; Estimated Glomerular Filt Rate 8; Glucose Random 101 mg/dL (60-115); Phosphorus 4.1 mg/dL (2.7-4.5); Potassium 3.8 mmol/L (3.3-5.1); Sodium 145 mmol/L (135-145)
[2024-08-28 08:35] LABS: Cortisol Random 20.2 ug/dL; TSH reflex Free T4 0.65 uIU/mL (0.32-4.0)
[2024-08-28] MEDS: LORazepam 2 MG/ML VIAL 0.5 MG IVPUSH (08:39)
--- NOTE | 2024-08-28 08:59 | PHA.MEDREC ---
Pharmacy Consult ? Medication Reconciliation Pharmacy has completed the medication reconciliation. Patient with list from [facility]
--- NOTE | 2024-08-28 09:45 | W.MHC.ACPN ---
Advanced Care Planning Note Advanced Care Planning Note Discussed with: family member(s) Time spent (in minutes): 15 Narrative: of note, code status clarified with Ms. Doty' son and [id number], who report Ms. Doty has expressed that she would not want CPR nor intubation; we discussed other invasive procedures, after which Ms. Doty' son and [id number] would like to decide on a [id number] basis as the need arises Problems Discussed (1) Hypotension: (2) Acute metabolic encephalopathy: (3) Acute UTI: (4) Elevated LFTs: (5) End stage chronic kidney disease:
[2024-08-28] MEDS: Albumin Human 25 % 50 ML 100 ML IV (10:16)
--- NOTE | 2024-08-28 12:03 | MHC.CM.PN ---
Pt from [facility]: Admitted to ICU w/UTI, change in MS and lethargy: Requiring pressor support: Pt is ESRD on HD: Family is requesting no invasive measures and will consider full MUSIC ENGRAVER measures if pt's condition warrants such. Family in to visit pt: CM assessment defered at this time given pt's unstable status. Will refer pt back to [facility] in the interim. IMM and HCP in chart. CM to follow
[2024-08-28 13:51] LABS: ABG Refer to POC result
[2024-08-28] MEDS: Piperacillin Sodium/Tazobactam 4.5 GM in 0.9 % Sodium Chloride 100 ML IV (16:56)
--- NOTE | 2024-08-28 20:51 | PM.CCN ---
Critical Care Event Note Summary Date of Service: 08/28/24 Code activated: No Narrative: This case had a high probability of a clinically significant, sudden, or life threatening deterioration of this patient's condition which required my full and direct attention, intervention and personal management. Critical Care Time (minutes): 15 Comment: One set of blood cultures reported positive at 20 hrs for Gram-positive cocci in clusters.This is likely a contaminant.? The patient is afebrile, WBC is normal, lactic acid was normal. UA? indicative of UTI. We will continue broad-spectrum antibiotics and repeat cultures and lactate.
[2024-08-28 21:50] LABS: Lactic Acid 1.5 mmol/L (0.5-2.0)
[2024-08-28 21:57] LABS: Anion Gap 16 (12-20); Blood Urea Nitrogen 34 mg/dL (9-16); Calcium 9.9 mg/dL (8.4-10.2); Carbon Dioxide 26 mmol/L (22-29); Chloride 106 mmol/L (96-108); Creatinine Clr Calc Pharmacy 7.2; Estimated Glomerular Filt Rate 7; Glucose Random 92 mg/dL (60-115); Potassium 4.1 mmol/L (3.3-5.1); Sodium 144 mmol/L (135-145)
[2024-08-29] VITALS (29 sets, daily range): BP systolic 96–152; BP diastolic 29–78; PULSE 61–108; RESP 11–19; TEMP 36.4–37.6; O2SAT 90–100; BMI 31.8
[2024-08-29] MEDS: Piperacillin Sodium/Tazobactam 4.5 GM in 0.9 % Sodium Chloride 100 ML IV ×2 (04:30→17:04)
[2024-08-29] MEDS: Heparin Sodium,Porcine 5,000 UNIT/ML VIAL 5000 UNIT SUBCUT ×2 (04:34→17:02)
[2024-08-29 05:46] LABS: MANUAL DIFF FLAG NO
[2024-08-29 05:48] LABS: Basophils Percent Auto 0.4 % (0-2); Eosinophils Absolute Auto 0.5 X10*3/uL (0.0-0.4); Eosinophils Percent Auto 6.7 % (0-4); Hematocrit 35.5 % (37.0-47.0); Imm Gran Abs Auto 0.01 X10*3/uL (0.00-0.03); Imm Gran Pct Auto 0.1 % (0.0-0.4); Lymphocytes Absolute Auto 1.5 X10*3/uL (1.2-4.9); Lymphocytes Percent Auto 20.8 % (20-40); Mean Corpuscular Hemoglobin 31.9 pg (27.0-33.0); Mean Corpuscular Volume 102.9 fL (80.0-98.0); Mean Platelet Volume 9.8 fL (9.4-12.3); Monocytes Absolute Auto 0.8 X10*3/uL (0.1-1.2); Monocytes Percent Auto 10.5 % (2-11); Neutrophils Absolute Auto 4.4 x10*3/uL (2.0-8.3); Neutrophils Percent Auto 61.5 % (45-73); Platelet Count 156 X10*3/uL (160-400); Red Blood Count 3.45 X10*6/uL (4.20-5.50); Red Cell Distribution Width 15.3 % (11.0-16.0); White Blood Count 7.2 X10*3/uL (4.8-10.8)
[2024-08-29 06:07] LABS: Anion Gap 17 (12-20); Blood Urea Nitrogen 37 mg/dL (9-16); Calcium 9.8 mg/dL (8.4-10.2); Carbon Dioxide 27 mmol/L (22-29); Chloride 105 mmol/L (96-108); Creatinine Clr Calc Pharmacy 6.4; Estimated Glomerular Filt Rate 6; Glucose Random 85 mg/dL (60-115); Potassium 3.8 mmol/L (3.3-5.1); Sodium 145 mmol/L (135-145)
[2024-08-29] MEDS: Albumin Human 25 % 100 ML IV (08:49)
[2024-08-29 09:58] LABS: Ammonia 40 umol/L (13-55)
--- NOTE | 2024-08-29 10:08 | P.PNCC_ITS ---
Subjective Subjective Date of Service: 08/29/24 Interval History: 88-year-old lady with underlying dementia, end-stage renal disease hemodialysis, hyperlipidemia, hypertension, COPD admitted on 08/28/2024 with septic shock likely secondary to source requiring pressor support further complicated by septic encephalopathy with possible aspiration. No events overnight. Pressor requirements improving. Remains encephalopathic. Critical Care Time (minutes): 60 Physical Exam 2 Vital Signs: Vital Signs: Last Vital Signs Temp 98.6 F 08/29/24 09:00 Pulse 69 08/29/24 09:00 Resp 15 08/29/24 09:00 BP 116/38 L 08/29/24 09:00 Pulse Ox 98 08/29/24 09:00 O2 Del Method Room Air 08/29/24 09:00 O2 Flow Rate 2 08/29/24 02:00 BMI result Body Mass Index 31.8 Const: General: no acute distress and lethargic Orientation/consciousness: lethargic Eyes: Sclerae: sclerae normal EOM: EOMs intact bilaterally Neck: Neck: Yes no lymphadenopathy, Yes trachea midline and Yes supple Resp: Effort & Inspection: normal respiratory effort and no respiratory distress Auscultation: clear to auscultation bilaterally Cardio: Rate: regular rate Rhythm: regular rhythm Heart sounds: no gallops, no murmurs and no rubs GI: Palpation (GI): Soft to palpation and Other GI palpation findings present ( Nontender) Auscultation: normal bowel sounds Extrem: General: No clubbing, No cyanosis and Yes edema (Trace bilateral) Objective Data Labs 08/29/24 05:40 08/29/24 05:40 Labs: Laboratory Results - last 24 hr 08/28/24 08/29/24 08/29/24 21:26 05:40 09:39 WBC 7.2 RBC 3.45 L Hgb 11.0 L Hct 35.5 L MCV 102.9 H MCH 31.9 MCHC 31.0 RDW 15.3 Plt Count 156 L MPV 9.8 Immature Gran % (Auto) 0.1 Neut % (Auto) 61.5 Lymph % (Auto) 20.8 [place] % (Auto) 10.5 Eos % (Auto) 6.7 H Baso % (Auto) 0.4 Lymph # (Auto) 1.5 [place] # (Auto) 0.8 Eos # (Auto) 0.5 H Baso # (Auto) 0.0 Abs Immat Gran (auto) 0.01 Absolute Neuts (auto) 4.4 Absolute Nucleated RBC 0.000 Nucleated RBC % (auto) 0.0 Sodium 144 145 Potassium 4.1 3.8 Chloride 106 105 Carbon Dioxide 26 27 Anion Gap 16 17 BUN 34 H 37 H Creatinine 5.56 H* 6.30 H* Estim Creat Clear Calc 7.2 6.4 Estimated GFR 7 6 Random Glucose 92 85 Lactic Acid 1.5 Calcium 9.9 9.8 Phosphorus 4.0 Magnesium 2.0 Ammonia 40 Albumin 3.0 L Microbiology Microbiology Results: Microbiology 08/28/24 Unknown Urine Catheterized - Alexis Catheter Urine Culture - Final 08/27/24 23:39 Blood - Venous Blood Culture - Preliminary No growth after 24 hours. 08/27/24 23:39 Blood - Venous Blood Culture - Preliminary Prelim: GPC Gram Stain only Progress Note: A&P Assessment and plan (1) Acute UTI: Status: Acute (2) Acute metabolic encephalopathy: Status: Acute (3) End stage renal disease: Status: Acute (4) Dementia: Status: Acute Plan Assessment: 88-year-old lady with underlying dementia and end-stage renal disease on hemodialysis admitted with septic shock with likely source further complicated by septic encephalopathy Plan: Neuro: Septic versus metabolic encephalopathy, expect to improve with resolution of underlying UTI. Underlying dementia. Cardiac: Septic shock, continue to titrate off pressor support as tolerated. Pulmonary: No acute issues. Renal: End-stage renal disease on hemodialysis. Nephrology service care appreciated. Endo: No acute issues. GI: No acute issues. ID: Septic shock with likely source, cultures are pending. Continue broad- spectrum antibiotics. Heme/Onc: No acute issues. Psych: No acute issues. Miscellaneous: No acute issues. Prophylaxis: Heparin Diet: NPO Critical care time spent: 60 minutes Quality Stroke Does the patient have a stroke diagnosis?: No VTE Prior VTE?: No VTE Risk Level:: Medical - moderate - high VTE Device Contraindication: N/A - Device Ordered VTE Drug Contraindication: N/A - Med Ordered
--- NOTE | 2024-08-29 11:24 | P.CDIM_ITS ---
PROVIDER RESPONSE TEXT: To clarify, the appropriate diagnosis supported by the clinical indicators: Sepsis is/was present and is a clinical diagnosis based on QUERY TEXT: PHYSICIAN'S DOCUMENTATION REQUEST Date of Query: 08/29/2024 10:58 AM EDT Patient Name: Naomy Doty Admit Date: 08/28/2024 Dear Mars Del Castillo MD, A review of the medical record indicates additional documentation may be needed. Please review below and update the documentation accordingly. Documentation on progress note dated 08/29/24 included the diagnosis of sepsis. The patient's infectious clinical indicators include: SAT 80 RA Levophed WBC 3.6 LA .7 BP 90/44 Per Critical Care Progress Note 08/29/24: septic shock with likely source further complicated by septic encephalopathy Recognized standard criteria for this condition and other infectious definitions includes: Bacteremia Abnormal laboratory test - does not indicate a clinically ill patient Sepsis Systemic manifestations of infection, with 2 or more SIRS criteria which include: Fever > 100.4?F or hypothermia < 96.8?F Leukocytosis - WBC > 12,000 or leukopenia, WBC < 4,000, or > 10% bands Tachycardia- > 90 beats/minute Tachypnea- RR > 20 breaths/minute or PaCO2 < 32mmHg Source: Merck Manual 2013 Documentation should include the known or suspected organism, and the underlying infection, such as U TI or pneumonia Severe Sepsis Sepsis with associated acute organ dysfunction, such as renal or respiratory failure Documentation should indicate the association between the sepsis and the organ dysfunction Septic Shock Severe sepsis with associated with circulatory failure, evidenced by hypotension and hypoperfusion Based on the above information and the recognized standard for sepsis, could you please clarify if th is diagnoses is still accurate and reflective of the patient's condition to ensure quality of the medical record. Sepsis is/was present and is a clinical diagnosis based on After study, Sepsis has been ruled out Other (explain) Clinically unable to determine (explain) Thank you, Angie Joseph RN Use of terms such as suspected, likely, concern for, or probable (associated with a specific diagnosi s that is being evaluated, monitored, or treated as if it exists) are acceptable and can be coded in the inpatient se tting, when documented at the time of discharge. Please use your independent medical judgment in providing your response. THIS QUERY IS PART OF THE PERMANENT MEDICAL RECORD
--- NOTE | 2024-08-29 11:58 | P.PNNPD_ITS ---
Subjective Subjective Date of Service: 08/29/24 This patient was seen during dialysis. Interval history: 88-year-old lady with underlying dementia, end-stage renal disease hemodialysis, hyperlipidemia, hypertension, COPD admitted on 08/28/2024 with septic shock lik [place] secondary to source requiring pressor support further complicated by septic encephalopathy with possible aspiration. pt has been getting regular HD at facility, last HD was on Thursday as planned pt has visible facial and upper extremity tremors at rest today at bedside, not responsive to verbal stimuli electrolytes, including calcium, phosphorous, magnesium, sodium within normal limits LUE fistula without erythema or complications of note, liver enzymes significantly elevated albumin is low and being replaced Physical Exam Vital Signs: Vital Signs: Last Vital Signs Temp 98.2 F 08/29/24 10:56 Pulse 70 08/29/24 10:56 Resp 17 08/29/24 10:56 BP 146/53 H 08/29/24 10:56 Pulse Ox 90 L 08/29/24 10:56 O2 Del Method Room Air 08/29/24 10:56 O2 Flow Rate 2 08/29/24 02:00 BMI result Body Mass Index 31.8 Const: General: comfortable and no acute distress Neck: Neck: Yes no JVD Resp: Auscultation: clear to auscultation bilaterally Cardio: Jugular venous distension: no JVD Rate: regular rate Rhythm: regular rhythm GI: Palpation (GI): Soft to palpation Rectal Exam - Female: No tenderness : General: Yes no CVA tenderness Back/Spine/Pelvis: Back: no CVA tenderness Skin: Rashes: no rashes Extrem: General: Yes normal to inspection, No edema and No pedal edema Assessment & Plan Assessment and plan (1) End stage renal disease: Status: Acute (2) Hypotension: Status: Acute (3) Acute kidney injury superimposed on chronic kidney disease: Status: Acute (4) Acute metabolic encephalopathy: Status: Acute Plan pt with ESRD MWF, did NOT miss HD, here with AMS and requiring vasopressor support for hypotension. clinically she appears uremic. recommend checking ammonia level, unclear why patient is uremic after getting regular scheduled HD sessions, potential for recirculation as cause of uremia recommend HD today, HD ordered. Has AV graft on left arm. Will ask commercial print salesman to check for access recirculation. anemia due to CKD no indication for epogen at present calcium and phosphorous are normal volume status euvolemic/dry. We will run her even. Discussed with Dr Samuel Time Spent With Patient Time: Total time managing care of this patient today ____ minutes. Procedures Date of Service Date of Service: 08/29/24
--- NOTE | 2024-08-29 13:22 | PM.CNNEP ---
History of Present Illness Reason for Consult Consult date: 08/29/24 Chief Complaint Chief complaint: altered mental status History of Present Illness Narrative: 88-year-old lady with underlying dementia, end-stage renal disease hemodialysis, hyperlipidemia, hypertension, COPD admitted on 08/28/2024 with septic shock likely secondary to source requiring pressor support further complicated by septic encephalopathy with possible aspiration. pt has been getting regular HD at facility, last HD was on Thursday as planned pt has visible facial and upper extremity tremors at rest today at bedside, not responsive to verbal stimuli electrolytes, including calcium, phosphorous, magnesium, sodium within normal limits LUE fistula without erythema or complications of note, liver enzymes significantly elevated albumin is low and being replaced Review of Systems Review of Systems Yes Unobtainable due to mental status PMFSH Past Medical History Medical History (Updated 08/29/24 @ 13:24 by Sanam Sutton, JANE, SISAL OPERATOR-BC) End stage renal disease UTI (urinary tract infection) Multiple falls Physical deconditioning ESRD (end stage renal disease) on dialysis Generalized anxiety disorder Panic disorder Primary dysthymia late onset Chronic kidney disease (CKD) Bacteremia Acute hyperkalemia Weakness High cholesterol COPD (chronic obstructive pulmonary disease) Kidney disease HTN (hypertension) Social History Social History Household Members: Other Housing: [facility] Do you presently have visiting nurse or other home services: Yes Alcohol intake: never Patient Tobacco Use Status: Never used Tobacco Currently Displaying Signs/Symptoms of Drug Intoxication Withdrawal: No Spiritual Healthcare Practices: unknown Advance Directives: Yes Advance Directives on File: Yes Advance Directives Date on File: 08/26/21 Nutrition Risks: On aspiration precautions Patient : No service: No Current occupational status: retired [employer] Allergies Allergy/AdvReac Type Severity Reaction Status Date / Time No Known Allergies Allergy Verified 08/27/24 22:55 Active Medications: Current Medications Heparin Sodium (Porcine) (Heparin Sodium,Porcine 5,000 Unit/Ml Vial) 5,000 unit SUBCUT Q12H JORDY Last Admin: 08/29/24 04:34 Dose: 5,000 unit Norepinephrine Bitartrate (Levophed) 8 mg in 250 mls @ 0 mls/hr IVCONT .Q0M JORDY; Protocol Last Titration: 08/29/24 10:30 Dose: 0.03 mcg/kg/min, 4.44 mls/hr Piperacillin Sod/Tazobactam (Sod 4.5 gm/ Sodium Chloride) 100 mls @ 200 mls/hr IV Q12H JORDY Last Infusion: 08/29/24 05:00 Dose: Infused Vancomycin HCl 500 mg/ Sodium (Chloride) 110 mls @ 110 mls/hr IV ONCE ONE Stop: 08/29/24 12:59 Pharmacy Consult (Consult Rx Vancomycin Dosing) 1 each MISCELLANE DAILY PRN PRN Reason: Consult order Home Medications ?Medication ?Instructions ?Recorded ?Confirmed ?Last Taken ?Type aspirin 81 mg tablet,delayed 81 mg PO DAILY 01/24/23 08/28/24 09/08/23 History release sevelamer carbonate 800 mg tablet 1 tab PO TIDAC 01/24/23 08/28/24 09/08/23 History venlafaxine 150 mg tablet,extended 1 tab PO DAILY 01/24/23 08/28/24 09/08/23 History release 24 hr atorvastatin 40 mg tablet 40 mg PO BEDTIME 07/24/23 08/28/24 09/08/23 History propranolol 20 mg tablet 20 mg PO BID 07/24/23 08/28/24 09/08/23 History lorazepam 0.5 mg tablet 0.5 mg PO BEDTIME 09/08/23 08/28/24 11/30/22 History acetaminophen 500 mg tablet 1,000 mg PO Q8H PRN Pain 12/01/23 08/28/24 Unknown History diphenhydramine HCl 25 mg tablet 25 mg PO BEDTIME 12/01/23 08/28/24 11/30/22 History melatonin 10 mg tablet 10 mg PO BEDTIME 12/01/23 08/28/24 11/30/22 History benzocaine 15 mg-menthol 2.6 mg 1 noman mucous membrane Q3H PRN Sore 08/28/24 08/28/24 Unknown History lozenges (Cepacol Sore Throat Throat (benzocaine-menthol)) bisacodyl 10 mg rectal suppository 10 mg MA DAILY PRN Constipation 08/28/24 08/28/24 Unknown History bupropion HCl 150 mg 24 hr tablet, 150 mg PO DAILY 08/28/24 08/28/24 Unknown History extended release clotrimazole 1 % topical cream 1 appl topical BID 08/28/24 08/28/24 Unknown History clotrimazole 1 % topical cream 1 appl topical DAILY PRN Rash 08/28/24 08/28/24 Unknown History docusate sodium 100 mg capsule 100 mg PO BEDTIME 08/28/24 08/28/24 Unknown History famotidine 20 mg tablet 20 mg PO BID 08/28/24 08/28/24 Unknown History lidocaine 5 % topical patch 1 patch topical DAILY 08/28/24 08/28/24 Unknown History lorazepam 0.5 mg tablet 0.5 mg PO MOWEFR@0900 08/28/24 08/28/24 Unknown History naloxone 4 mg/actuation nasal 1 spray intranasal Q3M PRN Opiate 08/28/24 08/28/24 Unknown History spray (Narcan) Reversal tramadol 50 mg tablet 50 mg PO Q8H PRN Pain 08/28/24 08/28/24 Unknown History Physical Exam Vital Signs: Last Vital Signs Temp 97.9 F 08/29/24 13:00 Pulse 72 08/29/24 13:00 Resp 15 08/29/24 13:00 BP 130/45 L 08/29/24 13:00 Pulse Ox 95 08/29/24 13:00 O2 Del Method Room Air 08/29/24 13:00 O2 Flow Rate 2 08/29/24 02:00 BMI result Body Mass Index 31.8 Const General: comfortable and no acute distress Neck Neck: Yes no JVD Resp Effort & Inspection: able to speak in complete sentences Auscultation: clear to auscultation bilaterally Cardio Jugular venous distension: no JVD Rate: regular rate Rhythm: regular rhythm Heart sounds: S1 normal heart sound present and S2 normal heart sound present GI Palpation (GI): Soft to palpation Rectal Exam - Female: No tenderness General: Yes no CVA tenderness Back/Spine/Pelvis Back: no CVA tenderness Skin Rashes: no rashes Neuro Other: facial and extremity tremors Extrem General: Yes normal to inspection, No edema and No pedal edema Results Lab Results 08/29/24 05:40 08/29/24 05:40 Lab results: Chemistry 08/27/24 08/28/24 08/28/24 23:39 00:38 07:47 Sodium Cancelled 144 145 Potassium Cancelled 4.4 3.8 Carbon Dioxide Cancelled 30 H 28 BUN Cancelled 29 H 31 H Creatinine Cancelled 4.97 H* 5.17 H* Calcium Cancelled 9.6 9.9 Phosphorus 4.1 08/28/24 08/29/24 21:26 05:40 Sodium 144 145 Potassium 4.1 3.8 Carbon Dioxide 26 27 BUN 34 H 37 H Creatinine 5.56 H* 6.30 H* Calcium 9.9 9.8 Phosphorus 4.0 Hematology 08/27/24 08/28/24 08/28/24 23:39 00:13 07:47 WBC 3.6 L 7.5 10.7 Hgb 5.5 L* D 10.9 L D 12.4 Plt Count 74 L D 155 L D 184 08/29/24 05:40 WBC 7.2 Hgb 11.0 L Plt Count 156 L Urinalysis 08/27/24 23:39 Urine Color Dark Yellow Urine Appearance Turbid Urine pH 7.5 Ur Specific [place] 1.015 Urine Protein 300 (3+) H Urine Glucose (UA) Negative Urine Ketones Trace Urine Blood Negative Urine Nitrite Negative Ur Leukocyte Esterase Large (3+) H Urine RBC 3-5 H Urine WBC >50 H Ur Squamous Epith Cells 11-20 Hyaline Casts 11-20 Assessment and Plan (1) Acute kidney injury superimposed on chronic kidney disease: Status: Acute (2) Acute metabolic encephalopathy: Status: Acute (3) Hypotension: Qualifiers: Hypotension type: unspecified hypotension type Qualified Code(s): I95.9 - Hypotension, unspecified Status: Acute (4) End stage renal disease: Status: Acute Plan pt with ESRD MWF, did NOT miss HD, here with AMS and requiring vasopressor support for hypotension. clinically she appears uremic. recommend checking ammonia level, unclear why patient is uremic after getting regular scheduled HD sessions potential for recirculation as cause of uremia recommend HD today, HD ordered. Has AV graft on left arm. Will ask electronic train control technician to check for access recirculation. anemia due to CKD no indication for epogen at present calcium and phosphorous are normal volume status euvolemic/dry. We will run her even. Discussed with Dr Samuel Procedures Date of Service Date of Service: 08/29/24
--- NOTE | 2024-08-29 15:00 | HO.SKINPHOTO ---
Location: Coccyx Category: PI Stage:
--- NOTE | 2024-08-29 15:33 | MHC.CM.PN ---
EMR REVIEWED AND PT REMAINS IN ICU, PRESSOR SUPPORT AND HD CONTINUE. UPDATES SENT TO [facility] VIA [facility]. CM WILL CONTINUE TO FOLLOW FOR ANY CHANGE TO DC PLAN/NEEDS.
[2024-08-29 17:14] LABS: Vancomycin Random 19.7 mcg/mL (15-20)
--- NOTE | 2024-08-29 17:18 | HE.PHANOTE ---
Re Vanc Post-HD level = 19.4, no need for supplimentary dose at this time. Will order recheck-after next HD session.
[2024-08-30] VITALS (19 sets, daily range): BP systolic 110–158; BP diastolic 37–70; PULSE 75–112; RESP 11–20; TEMP 36.1–37.6; O2SAT 92–100; BMI 29.9
[2024-08-30] MEDS: Heparin Sodium,Porcine 5,000 UNIT/ML VIAL 5000 UNIT SUBCUT ×2 (04:39→16:55)
[2024-08-30] MEDS: Piperacillin Sodium/Tazobactam 4.5 GM in 0.9 % Sodium Chloride 100 ML IV ×2 (04:40→16:55)
[2024-08-30 05:30] LABS: VBG Base Excess 0.4 mmol/L; VBG HCO3 22 mmol/L (22-26); VBG pCO2 29 mmHg; VBG pH 7.48 (7.32-7.43); VBG pO2 45 mmHg
[2024-08-30 05:31] LABS: Venous Blood Gas Refer to POC result
[2024-08-30 05:38] LABS: MANUAL DIFF FLAG NO
[2024-08-30 05:40] LABS: Basophils Percent Auto 0.5 % (0-2); Eosinophils Absolute Auto 0.3 X10*3/uL (0.0-0.4); Eosinophils Percent Auto 5.2 % (0-4); Hematocrit 35.8 % (37.0-47.0); Hemoglobin 11.3 g/dl (12.0-16.0); Imm Gran Abs Auto 0.01 X10*3/uL (0.00-0.03); Imm Gran Pct Auto 0.2 % (0.0-0.4); Lymphocytes Absolute Auto 1.1 X10*3/uL (1.2-4.9); Lymphocytes Percent Auto 17.1 % (20-40); Mean Corpuscular HGB Conc 31.6 g/dl (31.0-35.0); Mean Corpuscular Hemoglobin 31.7 pg (27.0-33.0); Mean Corpuscular Volume 100.6 fL (80.0-98.0); Mean Platelet Volume 9.8 fL (9.4-12.3); Monocytes Absolute Auto 0.8 X10*3/uL (0.1-1.2); Monocytes Percent Auto 12.4 % (2-11); Neutrophils Absolute Auto 4.1 x10*3/uL (2.0-8.3); Neutrophils Percent Auto 64.6 % (45-73); Platelet Count 136 X10*3/uL (160-400); Red Blood Count 3.56 X10*6/uL (4.20-5.50); Red Cell Distribution Width 14.9 % (11.0-16.0); White Blood Count 6.4 X10*3/uL (4.8-10.8)
[2024-08-30 05:56] LABS: Alanine Aminotransferase 153 U/L (0-31); Albumin Level 3.5 g/dL (3.5-5.0); Alkaline Phosphatase 170 U/L (39-117); Anion Gap 19 (12-20); Aspartate Amino Transferase 68 U/L (5-31); Blood Urea Nitrogen 15 mg/dL (9-16); Carbon Dioxide 22 mmol/L (22-29); Chloride 103 mmol/L (96-108); Creatinine Clr Calc Pharmacy 10.5; Estimated Glomerular Filt Rate 11; Glucose Random 80 mg/dL (60-115); Magnesium 1.8 mg/dL (1.6-2.6); Phosphorus 2.6 mg/dL (2.7-4.5); Potassium 3.6 mmol/L (3.3-5.1); Sodium 140 mmol/L (135-145); Total Protein 5.9 g/dL (6.5-8.0)
[2024-08-30] MEDS: Potassium Phosphate/NS 15 MMOL/250 ML PLAST..BAG 62.5 MMOL IV (07:33)
--- NOTE | 2024-08-30 10:32 | PM.CCPN ---
Subjective Subjective Date of Service: 08/30/24 Interval History: 88-year-old lady with underlying dementia, end-stage renal disease hemodialysis, hyperlipidemia, hypertension, COPD admitted on 08/28/2024 with septic shock likely secondary to source requiring pressor support further complicated by septic encephalopathy with possible aspiration. No events overnight. Titrated off pressor support. Encephalopathy is improving. Critical Care Time (minutes): 0 Physical Exam Vital Signs: Vital Signs: Last Vital Signs Temp 97.5 F 08/30/24 08:00 Pulse 84 08/30/24 10:00 Resp 18 08/30/24 10:00 BP 131/53 L 08/30/24 10:00 Pulse Ox 97 08/30/24 10:00 O2 Del Method Room Air 08/30/24 10:00 O2 Flow Rate 2 08/29/24 02:00 BMI result Body Mass Index 29.9 Const: General: no acute distress, alert and awake Eyes: Sclerae: sclerae normal EOM: EOMs intact bilaterally Neck: Neck: Yes no lymphadenopathy, Yes trachea midline and Yes supple Resp: Effort & Inspection: normal respiratory effort and no respiratory distress Auscultation: clear to auscultation bilaterally Cardio: Rate: regular rate Rhythm: regular rhythm Heart sounds: no gallops, no murmurs and no rubs GI: Palpation (GI): Soft to palpation and Other GI palpation findings present ( Nontender) Auscultation: normal bowel sounds Extrem: General: Yes no pedal edema, No clubbing and No cyanosis Objective Data Labs 08/30/24 05:23 08/30/24 05:23 Labs: Laboratory Results - last 24 hr 08/29/24 08/30/24 08/30/24 16:27 05:19 05:23 WBC 6.4 RBC 3.56 L Hgb 11.3 L Hct 35.8 L MCV 100.6 H MCH 31.7 MCHC 31.6 RDW 14.9 Plt Count 136 L MPV 9.8 Immature Gran % (Auto) 0.2 Neut % (Auto) 64.6 Lymph % (Auto) 17.1 L [place] % (Auto) 12.4 H Eos % (Auto) 5.2 H Baso % (Auto) 0.5 Lymph # (Auto) 1.1 L [place] # (Auto) 0.8 Eos # (Auto) 0.3 Baso # (Auto) 0.0 Abs Immat Gran (auto) 0.01 Absolute Neuts (auto) 4.1 Absolute Nucleated RBC 0.000 Nucleated RBC % (auto) 0.0 VBG pH 7.48 H VBG pCO2 29 VBG pO2 45 VBG HCO3 22 VBG O2 Saturation 80.0 VBG Base Excess 0.4 Sodium 140 Potassium 3.6 Chloride 103 Carbon Dioxide 22 Anion Gap 19 BUN 15 Creatinine 3.88 H Estim Creat Clear Calc 10.5 Estimated GFR 11 Random Glucose 80 Calcium 10.0 Phosphorus 2.6 L Magnesium 1.8 Total Bilirubin 1.0 AST 68 H ALT 153 H Alkaline Phosphatase 170 H Total Protein 5.9 L Albumin 3.5 Random Vancomycin 19.7 Microbiology Microbiology Results: Microbiology 08/27/24 23:39 Blood - Venous Blood Culture - Preliminary No growth after 48 hours. 08/28/24 21:26 Blood - Venous Blood Culture - Preliminary No growth after 24 hours. 08/28/24 21:26 Blood - Venous Blood Culture - Preliminary No growth after 24 hours. 08/27/24 23:39 Blood - Venous Blood Culture - Final Coag negative Staphylococcus 08/28/24 Unknown Urine Catheterized - Alexis Catheter Urine Culture - Final Progress Note: A&P Assessment and plan (1) End stage renal disease: Status: Acute (2) Hypotension: Status: Acute (3) Acute UTI: Status: Acute (4) Dementia: Status: Acute Plan Assessment: 88-year-old lady with underlying dementia and end-stage renal disease on hemodialysis admitted with septic shock with likely source further complicated by septic encephalopathy Plan: Neuro: Septic versus metabolic encephalopathy, improved. Underlying dementia. Cardiac: Septic shock, resolved, titrated off pressor support. Pulmonary: No acute issues. Renal: End-stage renal disease on hemodialysis. Nephrology service care appreciated. Endo: No acute issues. GI: No acute issues. ID: Septic shock with likely source, cultures are pending. Continue broad-spectrum antibiotics. Heme/Onc: No acute issues. Psych: No acute issues. Miscellaneous: No acute issues. Prophylaxis: Heparin Diet: Pending swallow evaluation Quality Stroke Does the patient have a stroke diagnosis?: No VTE Prior VTE?: No VTE Risk Level:: Medical - moderate - high VTE Device Contraindication: N/A - Device Ordered VTE Drug Contraindication: N/A - Med Ordered
--- NOTE | 2024-08-30 10:59 | P.PNNP_ITS ---
Subjective Subjective Date of Service: 08/30/24 Interval history: 88-year-old lady with underlying dementia, end-stage renal disease hemodialysis admitted on 08/28/2024 with septic shock requiring pressor support further complicated by septic encephalopathy with possible aspiration. pt has been getting regular HD at facility and did not miss any HD sessions. she received HD yesterday (uremic, AMS) today she is alert, and responds to questions though is disoriented to time and situation (does have baseline dementia). now off vassopressors Creatinine has improved from 6.3 yesterday to 3.88 today, BUN down from 37 to 15 phosphorous is low at 2.6. calcium and other electrolytes are normal. patient remains oliguric (caraballo), output of 35mL thus far today, 120mL yesterday. patient states she is tired, denies other concerns. Physical Exam 2 Vital Signs: Vital Signs: Last Vital Signs Temp 97.5 F 08/30/24 08:00 Pulse 84 08/30/24 10:00 Resp 18 08/30/24 10:00 BP 131/53 L 08/30/24 10:00 Pulse Ox 97 08/30/24 10:00 O2 Del Method Room Air 08/30/24 10:00 O2 Flow Rate 2 08/29/24 02:00 BMI result Body Mass Index 29.9 Const: General: comfortable, no acute distress and confusion (confused regarding time (year), situation- baseline dementia) O rientation/consciousness: oriented to person, oriented to place and confusion (confused regarding time (year), situation- baseline dementia) Neck: Neck: Yes no JVD Resp: Effort & Inspection: able to speak in complete sentences A uscultation: clear to auscultation bilaterally Cardio: Jugular venous distension: no JVD Rate: regular rate Rhythm: r egular rhythm Heart sounds: S1 normal heart sound present and S2 normal heart sound present GI: Palpation (GI): Soft to palpation Rectal Exam - Female: No tenderness : Other: caraballo in place, oliguric General: Yes no CVA tenderness Back/Spine/Pelvis: Back: no CVA tenderness Skin: Rashes: no rashes Neuro: Other: facial and extremity tremors General: oriented to person, oriented to place and confusion (confused regarding time (year), situation- baseline dementia) Extrem: General: Yes normal to inspection, No edema and No pedal edema Objective Data Labs 08/30/24 05:23 08/30/24 05:23 Labs: Laboratory Results - last 24 hr 08/29/24 08/30/24 08/30/24 16:27 05:19 05:23 WBC 6.4 RBC 3.56 L Hgb 11.3 L Hct 35.8 L MCV 100.6 H MCH 31.7 MCHC 31.6 RDW 14.9 Plt Count 136 L MPV 9.8 Immature Gran % (Auto) 0.2 Neut % (Auto) 64.6 Lymph % (Auto) 17.1 L [place] % (Auto) 12.4 H Eos % (Auto) 5.2 H Baso % (Auto) 0.5 Lymph # (Auto) 1.1 L [place] # (Auto) 0.8 Eos # (Auto) 0.3 Baso # (Auto) 0.0 Abs Immat Gran (auto) 0.01 Absolute Neuts (auto) 4.1 Absolute Nucleated RBC 0.000 Nucleated RBC % (auto) 0.0 VBG pH 7.48 H VBG pCO2 29 VBG pO2 45 VBG HCO3 22 VBG O2 Saturation 80.0 VBG Base Excess 0.4 Sodium 140 Potassium 3.6 Chloride 103 Carbon Dioxide 22 Anion Gap 19 BUN 15 Creatinine 3.88 H Estim Creat Clear Calc 10.5 Estimated GFR 11 Random Glucose 80 Calcium 10.0 Phosphorus 2.6 L Magnesium 1.8 Total Bilirubin 1.0 AST 68 H ALT 153 H Alkaline Phosphatase 170 H Total Protein 5.9 L Albumin 3.5 Random Vancomycin 19.7 Microbiology Microbiology Results: Microbiology 08/27/24 23:39 Blood - Venous Blood Culture - Preliminary No growth after 48 hours. 08/28/24 21:26 Blood - Venous Blood Culture - Preliminary No growth after 24 hours. 08/28/24 21:26 Blood - Venous Blood Culture - Preliminary No growth after 24 hours. 08/27/24 23:39 Blood - Venous Blood Culture - Final Coag negative Staphylococcus 08/28/24 Unknown Urine Catheterized - Caraballo Catheter Urine Culture - Final Procedures Date of Service Date of Service: 08/30/24 Assessment & Plan Assessment and plan (1) Acute kidney injury superimposed on chronic kidney disease: Status: Acute (2) Acute metabolic encephalopathy: Status: Acute (3) Hypotension: Status: Acute (4) End stage renal disease: Status: Acute Plan pt with ESRD MWF, did NOT miss HD, here with AMS and requiring vasopressor support for hypotension. Patient has improved clinically since HD yesterday will plan for HD tomorrow Has AV graft on left arm anemia due to CKD no indication for epogen at present calcium is normal volume status remains euvolemic Discussed with Dr Samuel Time Spent With Patient Time: Total time managing care of this patient today ____ minutes. Progress Note: Quality Stroke Does the patient have a stroke diagnosis?: No
[2024-08-30 11:40] LABS: Glucose, Whole Blood 89 mg/dL (60-115)
--- NOTE | 2024-08-30 12:57 | MHC.SL.SWA ---
Speech Pathologist Impression: Risk of Aspiration Due to: Lethargy Medically Fragile Poor PO Intake Reduced Cognition Dysphasia Diet Status: Liquid Consistency and Strategies for Safe Swallow: Liquid Intake Recommendation: Thin Solid Food Consistency: Dietary Recommendations: Pureed (NDD1) Oral Medication Intake: Crushed with Puree Please contact the pharmacy regarding appropriate crushable or liquid drug formulations that are available whenever modified delivery is recommended. Compensatory Strategies and Precautions to be Taken for Safe Swallow: Sitting Upright (90 deg) Small Bites and Sips Alternate Liquids/Solids Rate of Ingestion Change Oral Check Supervision While Eating and Drinking for Safe Swallow: Total Assistance (1:1) Swallowing Recommended Treatments: Compens. Strategy Educat. Recommendation for Speech: Inpatient Speech Therapy Comment: Recommend upgrade to Puree Solids and Thin Liquids. Meds Crushed with Puree. Pt will require 1:1 assistance at this time. Ensure the Pt is alert and ready for PO prior to administration. RAIL EXPRESS CLERK will continue to follow. Frequency/Duration: Daily Date Range for Service Req: Admission-Discharge Timeline to reassess: PRN Ham Rolling Machine Operator Clinican/Clinical Fellow: No Supervisory Statement: I have reviewed and agree with the student/clinical fellow's documentation: N/A Speech Language Pathologist: Aryan Hernandez M.A., [facility]-RAIL EXPRESS CLERK
[2024-08-31 03:30] VITALS: BP 121/59; PULSE 76; RESP 16; TEMP 36.9; O2SAT 97
[2024-08-31] MEDS: Heparin Sodium,Porcine 5,000 UNIT/ML VIAL 5000 UNIT SUBCUT ×2 (06:13→17:09)
[2024-08-31 07:26] LABS: MANUAL DIFF FLAG NO
[2024-08-31 07:36] LABS: Basophils Absolute Auto 0.1 X10*3/uL (0.0-0.2); Basophils Percent Auto 0.6 % (0-2); Eosinophils Absolute Auto 0.4 X10*3/uL (0.0-0.4); Eosinophils Percent Auto 5.4 % (0-4); Hematocrit 38.3 % (37.0-47.0); Hemoglobin 12.6 g/dl (12.0-16.0); Imm Gran Abs Auto 0.03 X10*3/uL (0.00-0.03); Imm Gran Pct Auto 0.4 % (0.0-0.4); Lymphocytes Absolute Auto 1.2 X10*3/uL (1.2-4.9); Lymphocytes Percent Auto 14.1 % (20-40); Mean Corpuscular HGB Conc 32.9 g/dl (31.0-35.0); Mean Corpuscular Hemoglobin 31.8 pg (27.0-33.0); Mean Corpuscular Volume 96.7 fL (80.0-98.0); Monocytes Absolute Auto 0.6 X10*3/uL (0.1-1.2); Monocytes Percent Auto 7.7 % (2-11); Neutrophils Absolute Auto 5.9 x10*3/uL (2.0-8.3); Neutrophils Percent Auto 71.8 % (45-73); Platelet Count 171 X10*3/uL (160-400); Red Blood Count 3.96 X10*6/uL (4.20-5.50); Red Cell Distribution Width 14.9 % (11.0-16.0); White Blood Count 8.2 X10*3/uL (4.8-10.8)
[2024-08-31 07:52] LABS: Albumin Level 3.7 g/dL (3.5-5.0); Anion Gap 19 (12-20); Blood Urea Nitrogen 10 mg/dL (9-16); Calcium 9.6 mg/dL (8.4-10.2); Carbon Dioxide 21 mmol/L (22-29); Chloride 102 mmol/L (96-108); Creatinine Clr Calc Pharmacy 16.2; Estimated Glomerular Filt Rate 19; Glucose Random 81 mg/dL (60-115); Phosphorus 1.9 mg/dL (2.7-4.5); Potassium 3.4 mmol/L (3.3-5.1); Sodium 139 mmol/L (135-145)
--- NOTE | 2024-08-31 08:35 | W.PM.DNNEP ---
Subjective Subjective Date of Service: 08/31/24 This patient was seen during dialysis. Interval history: 88-year-old female with underlying dementia, end-stage renal disease hemodialysis admitted on 08/28/2024 with septic shock requiring pressor support (off now) further complicated by septic encephalopathy with possible aspiration. pt has been getting regular HD at facility and did not miss any HD sessions. she received HD yesterday (uremic, AMS) today she is alert, and responds to questions though is disoriented to time and situation (does have baseline dementia). Creatinine has has continued to improve. Today 2.44, which is better than her usual baseline. GFR 16. phosphorous is low at 1.9. calcium and other electrolytes are normal. patient remains oliguric (caraballo), output of 35mL thus far today. patient states she is tired, denies other concerns. Physical Exam Vital Signs: Vital Signs: Last Vital Signs Temp 98.4 F 08/31/24 03:30 Pulse 76 08/31/24 03:30 Resp 16 08/31/24 03:30 BP 121/59 L 08/31/24 03:30 Pulse Ox 97 08/31/24 03:30 O2 Del Method Room Air 08/31/24 03:30 O2 Flow Rate 2 08/29/24 02:00 BMI result Body Mass Index 29.9 Const: General: comfortable, no acute distress and confusion (baseline dementia) Orientation/consciousness: oriented to person, oriented to place and confusion (baseline dementia) Neck: Neck: Yes no JVD Resp: Effort & Inspection: able to speak in complete sentences Auscultation: clear to auscultation bilaterally Cardio: Jugular venous distension: no JVD Rate: regular rate Rhythm: regular rhythm Heart sounds: S1 normal heart sound present and S2 normal heart sound present GI: Palpation (GI): Soft to palpation Rectal Exam - Female: No tenderness : Other: caraballo in place, oliguric General: Yes no CVA tenderness Back/Spine/Pelvis: Back: no CVA tenderness Skin: Rashes: no rashes Neuro: Other: facial and extremity tremors General: oriented to person, oriented to place and confusion (baseline dementia) Extrem: General: Yes normal to inspection, No edema and No pedal edema Assessment & Plan Assessment and plan (1) Acute kidney injury superimposed on chronic kidney disease: Status: Acute (2) Acute metabolic encephalopathy: Status: Acute (3) Hypotension: Status: Acute (4) End stage renal disease: Status: Acute Plan pt with ESRD MWF, did NOT miss HD, here with AMS and requiring vasopressor support for hypotension. Patient continues to improve clinically. HD today Has AV graft on left arm, no erythema, functioning well per HD RN at bedside. anemia due to CKD no indication for epogen at present calcium is normal phosphorous low, ok to continue to monitor volume status remains euvolemic Discussed with Dr Samuel Time Spent With Patient Time: Total time managing care of this patient today ____ minutes. Procedures Date of Service Date of Service: 08/31/24
--- NOTE | 2024-08-31 10:17 | MHC.CM.PN ---
Per MD ROUNDS, Patient is not yet medically cleared for dc. Plan is to return to LTC @ [facility] @ [facility] and @ [facility]. CM will follow.
[2024-08-31] MEDS: Piperacillin Sodium/Tazobactam 4.5 GM in 0.9 % Sodium Chloride 100 ML IV ×2 (10:59→23:55)
[2024-08-31 11:56] VITALS: BP 128/61; PULSE 108; RESP 16; TEMP 36.1; O2SAT 96
--- NOTE | 2024-08-31 12:37 | HO.PM.IMPN ---
Subjective Subjective Date of Service: 08/31/24 Interval History: Somnolent but arousable after HD. Confused at baseline Review of Systems Unable to obtain Physical Exam Vital Signs: Vital Signs: Last Vital Signs Temp 97.0 F 08/31/24 11:56 Pulse 108 H 08/31/24 11:56 Resp 16 08/31/24 11:56 BP 128/61 08/31/24 11:56 Pulse Ox 96 08/31/24 11:56 O2 Del Method Room Air 08/31/24 11:56 O2 Flow Rate 2 08/29/24 02:00 BMI result Body Mass Index 29.9 Const: Other: Somnolent but arousable Resp: Other: Clear to auscultation bilaterally no rales rhonchi or wheezes Cardio: Other: No S4; positive S1-S2; no S3 murmurs rubs or gallops GI: Other: Soft nontender nondistended normoactive bowel sounds Extrem: Other: No edema bilaterally Objective Data Active Medications Heparin Sodium (Porcine) (Heparin Sodium,Porcine 5,000 Unit/Ml Vial) 5,000 unit SUBCUT Q12H [facility] Last Admin: 08/31/24 06:13 Dose: 5,000 unit Documented By: JIMMIE Vancomycin HCl 500 mg/ Sodium (Chloride) 110 mls @ 110 mls/hr IV ONCE ONE Stop: 08/29/24 12:59 Piperacillin Sod/Tazobactam (Sod 4.5 gm/ Sodium Chloride) 100 mls @ 200 mls/hr IV Q12H [facility] Last Infusion: 08/31/24 11:51 Dose: Infused Documented By: HALLIE Pharmacy Consult (Consult Rx Vancomycin Dosing) 1 each MISCELLANE DAILY PRN PRN Reason: Consult order Labs 08/31/24 06:42 08/31/24 06:42 Labs: Laboratory Results - last 24 hr 08/31/24 06:42 MCV 96.7 MCH 31.8 MCHC 32.9 RDW 14.9 Plt Count 171 D MPV 10.0 Immature Gran % (Auto) 0.4 Neut % (Auto) 71.8 Lymph % (Auto) 14.1 L [place] % (Auto) 7.7 Eos % (Auto) 5.4 H Baso % (Auto) 0.6 Lymph # (Auto) 1.2 [place] # (Auto) 0.6 Eos # (Auto) 0.4 Baso # (Auto) 0.1 Abs Immat Gran (auto) 0.03 Absolute Neuts (auto) 5.9 Absolute Nucleated RBC 0.000 Nucleated RBC % (auto) 0.0 Anion Gap 19 Estim Creat Clear Calc 16.2 Estimated GFR 19 Random Glucose 81 Calcium 9.6 Phosphorus 1.9 L Magnesium 2.0 Albumin 3.7 Microbiology Microbiology Results: Microbiology 08/28/24 21:26 Blood Culture - Preliminary Blood - Venous No growth after 48 hours. 08/28/24 21:26 Blood Culture - Preliminary Blood - Venous No growth after 48 hours. Assessment and Plan (1) Hypotension: Status: Acute (2) UTI (urinary tract infection): Status: Acute (3) End stage renal disease: Status: Acute (4) Acute metabolic encephalopathy: Status: Acute (5) Dementia: Status: Acute Plan 88-year-old female with history of unspecified dementia, ESRD on dialysis MWF, hyperlipidemia, hypertension, COPD, hyperlipidemia, unspecified mood disorder presented to the emergency room for altered mental status and lethargy admitted to the ICU for management of hypotension requiring pressor support. Maintained on pressors; over the next 48 hours weaned off pressors and was able to be transferred to telemetry. 1. Hypotensive requiring pressors -normotensive at present -continue to hold Inderal -add back when clinically appropriate 2. Acute UTI -active urinary sediment in ER initially. Given a dose of ceftriaxone; urine collected approximately 8 hours after dose. Culture unremarkable. Given presentation would complete course of Zosyn and switch to Augmentin pending completion of cultures -will DC vancomycin 3. Delirium in known backdrop of dementia -still slightly somnolent however right after dialysis. -we will obtain speech eval 4. End-stage renal disease on hemodialysis -follow renals/divalents -dialysis as per renal DNR DNI Lovenox Will require ongoing hospitalization for ongoing specialty consultation along with speech evaluation. Also require continued IV antibiotics pending completion of cultures Quality Stroke Does the patient have a stroke diagnosis?: No VTE Prior VTE?: No VTE Risk Level:: Medical - moderate - high VTE Device Contraindication: N/A - Device Ordered VTE Drug Contraindication: N/A - Med Ordered
--- NOTE | 2024-08-31 14:10 | MHC.SL.SWA ---
Speech Pathologist Impression: Mild oropharyngeal dysphagia Risk of Aspiration Due to: Weakness Medically Fragile Poor PO Intake Reduced Cognition Dysphasia Diet Status: Liquid Consistency and Strategies for Safe Swallow: Liquid Intake Recommendation: Thin Liquid Intake Strategies: Solid Food Consistency: Dietary Recommendations: Pureed (NDD1) Additional Modifications to Solid Foods: Oral Medication Intake: Crushed with Puree Please contact the pharmacy regarding appropriate crushable or liquid drug formulations that are available whenever modified delivery is recommended. Compensatory Strategies and Precautions to be Taken for Safe Swallow: Sitting Upright (90 deg) Small Bites and Sips Alternate Liquids/Solids Rate of Ingestion Change Oral Check Supervision While Eating and Drinking for Safe Swallow: Total Assistance (1:1) Foods to Avoid: Swallowing Recommended Treatments: Compens. Strategy Educat. Recommendation for Speech: Inpatient Speech Therapy Comment: Recommend upgrade to Puree Solids and Thin Liquids. Meds Crushed with Puree. Pt will require 1:1 assistance at this time. Ensure the Pt is alert and ready for PO prior to administration. Encourage most upright position pt will tolerate. PHOTOENGRAVING PROOFER APPRENTICE will continue to follow. Family education as indicated. Frequency/Duration: Daily Date Range for Service Req: Admission-Discharge Timeline to reassess: PRN Sales Operations Manager Clinican/Clinical Fellow: No Supervisory Statement: I have reviewed and agree with the student/clinical fellow's documentation: N/A Speech Language Pathologist: Taina Kay M.S. [facility]-PHOTOENGRAVING PROOFER APPRENTICE
[2024-08-31 15:49] VITALS: BP 121/56; PULSE 98; RESP 16; TEMP 36.1; O2SAT 98
--- NOTE | 2024-08-31 15:49 | HO.WOUND ---
Wound Consult: Initial 88yr old?female admitted to [facility] on 08/28/24 - See progress notes and H&P for detailed history.? Wound consult placed for Coccyx wound POA.? Staff recently applied Triad and foam dressing to coccyx area - photo reviewed. Will assess at future date and time. Sacrum Etiology: ?Stage 2 Pressure Injury Present on Admission Wound Bed: red clean wound bed Drainage / Odor: scant serosang drainge Edges: ?irregular and attached Leilani wound: ? Slow to gladis red pink erythema, hyperpigmentation noted Pain: pain reported Goals of Treatment: Triad and Foam dressings Recommendations: 1. Turn and Reposition every 2 hours and as needed for patient comfort.? Use pillows or wedges to support off loading positions. 2. Off Load all bony prominences with use of pillows and heel boots if needed.? Apply Preventative foams where needed. ? 3. Monitor for incontinence and moisture control, use barrier creams when needed for prevention and treatment. 4. Provide adequate and supplemental nutrition.? 5. Continue low air loss mattress. 6. When applicable maintain blood glucose levels per Providers order. 7. Sacrum - Off Load Pressure? - Cleanse with PH balance spray or wipes, pat dry. ?Apply thin layer of Triad to wound bed. Do not remove all of paste between applications as this may cause further skin damage.? Cover with foam dressing to aid in off loading and protection from friction. Change every other day and PRN. Re-consult wound care Nurse for wound deterioration or wound changes.
[2024-08-31 20:00] VITALS: BP 115/57; PULSE 106; RESP 20; TEMP 37; O2SAT 96
[2024-09-01] VITALS (7 sets, daily range): BP systolic 105–145; BP diastolic 56–66; PULSE 100–107; RESP 16–20; TEMP 35.9–37; O2SAT 97–100; BMI 30.7
[2024-09-01] MEDS: Heparin Sodium,Porcine 5,000 UNIT/ML VIAL 5000 UNIT SUBCUT ×2 (06:06→16:12)
[2024-09-01 07:01] LABS: Basophils Absolute Auto 0.1 X10*3/uL (0.0-0.2); Basophils Percent Auto 0.5 % (0-2); Eosinophils Absolute Auto 0.1 X10*3/uL (0.0-0.4); Eosinophils Percent Auto 1.1 % (0-4); Hematocrit 41.4 % (37.0-47.0); Hemoglobin 13.6 g/dl (12.0-16.0); Imm Gran Abs Auto 0.05 X10*3/uL (0.00-0.03); Imm Gran Pct Auto 0.4 % (0.0-0.4); Lymphocytes Absolute Auto 2.3 X10*3/uL (1.2-4.9); Lymphocytes Percent Auto 19.7 % (20-40); MANUAL DIFF FLAG SCAN; Mean Corpuscular HGB Conc 32.9 g/dl (31.0-35.0); Mean Corpuscular Hemoglobin 31.6 pg (27.0-33.0); Mean Corpuscular Volume 96.1 fL (80.0-98.0); Mean Platelet Volume 10.3 fL (9.4-12.3); Monocytes Absolute Auto 1.8 X10*3/uL (0.1-1.2); Monocytes Percent Auto 15.1 % (2-11); Neutrophils Absolute Auto 7.4 x10*3/uL (2.0-8.3); Neutrophils Percent Auto 63.2 % (45-73); Platelet Count 220 X10*3/uL (160-400); Red Blood Count 4.31 X10*6/uL (4.20-5.50); Red Cell Distribution Width 15.1 % (11.0-16.0); SCAN SMEAR FLAG 1; White Blood Count 11.7 X10*3/uL (4.8-10.8)
[2024-09-01 07:18] LABS: Alanine Aminotransferase 79 U/L (0-31); Albumin Level 3.7 g/dL (3.5-5.0); Alkaline Phosphatase 162 U/L (39-117); Anion Gap 26 (12-20); Aspartate Amino Transferase 32 U/L (5-31); Bilirubin Total 1.4 mg/dL (0.0-1.0); Blood Urea Nitrogen 18 mg/dL (9-16); Calcium 10.9 mg/dL (8.4-10.2); Carbon Dioxide 17 mmol/L (22-29); Chloride 101 mmol/L (96-108); Glucose Fasting 93 mg/dL (60-99); Potassium 3.3 mmol/L (3.3-5.1); Sodium 141 mmol/L (135-145); Total Protein 6.7 g/dL (6.5-8.0)
[2024-09-01 07:24] LABS: Creatinine Clr Calc Pharmacy 8.9; Estimated Glomerular Filt Rate 9
[2024-09-01 07:51] LABS: SLIDE REVIEW VERIFIED
--- NOTE | 2024-09-01 09:41 | P.PNNP_ITS ---
Subjective Subjective Date of Service: 09/01/24 Interval history: 88-year-old lady with underlying dementia, end-stage renal disease hemodialysis admitted on 08/28/2024 with septic shock requiring pressor support further complicated by septic encephalopathy with possible aspiration. pt has been getting regular HD at facility and did not miss any HD sessions. she received HD Thursday (uremic, AMS), as well as Thursday (yesterday) today she is alert, and responds to questions though is disoriented to time and situation (does have baseline dementia). Creatinine 2.44 yesterday, today 4.48, BUN down from 37 to 15 phosphorous is low at 1.9. calcium and other electrolytes are normal. patient remains oliguric (caraballo), no urine output recorded for last 24 hours. patient states she is tired, denies other concerns. Physical Exam 2 Vital Signs: Vital Signs: Last Vital Signs Temp 96.6 F L 09/01/24 07:59 Pulse 102 H 09/01/24 07:59 Resp 20 09/01/24 07:59 BP 145/66 H 09/01/24 07:59 Pulse Ox 97 09/01/24 07:59 O2 Del Method Room Air 09/01/24 07:59 O2 Flow Rate 2 08/29/24 02:00 BMI result Body Mass Index 30.7 Const: General: comfortable, no acute distress and confusion (baseline dementia) Orientation/consciousness: oriented to person, oriented to place and confusion (baseline dementia) Neck: Neck: Yes no JVD Resp: Effort & Inspection: able to speak in complete sentences A uscultation: clear to auscultation bilaterally Cardio: Jugular venous distension: no JVD Rate: regular rate Rhythm: r egular rhythm Heart sounds: S1 normal heart sound present and S2 normal heart sound present GI: Palpation (GI): Soft to palpation Rectal Exam - Female: No tenderness : Other: caraballo in place, oliguric General: Yes no CVA tenderness Back/Spine/Pelvis: Back: no CVA tenderness Skin: Rashes: no rashes Neuro: Other: facial and extremity tremors General: oriented to person, oriented to place and confusion (baseline dementia) Extrem: General: Yes normal to inspection, No edema and No pedal edema Objective Data Labs 09/01/24 05:45 09/01/24 05:45 Labs: Laboratory Results - last 24 hr 09/01/24 05:45 WBC 11.7 H RBC 4.31 Hgb 13.6 Hct 41.4 MCV 96.1 MCH 31.6 MCHC 32.9 RDW 15.1 Plt Count 220 D MPV 10.3 Immature Gran % (Auto) 0.4 Neut % (Auto) 63.2 Lymph % (Auto) 19.7 L [place] % (Auto) 15.1 H Eos % (Auto) 1.1 Baso % (Auto) 0.5 Lymph # (Auto) 2.3 [place] # (Auto) 1.8 H Eos # (Auto) 0.1 Baso # (Auto) 0.1 Abs Immat Gran (auto) 0.05 H Absolute Neuts (auto) 7.4 Absolute Nucleated RBC 0.000 Nucleated RBC % (auto) 0.0 Smear Tech's Comments VERIFIED Sodium 141 Potassium 3.3 Chloride 101 Carbon Dioxide 17 L Anion Gap 26 H BUN 18 H Creatinine 4.48 H* Estim Creat Clear Calc 8.9 Estimated GFR 9 Fasting Glucose 93 Calcium 10.9 H D Total Bilirubin 1.4 H AST 32 H ALT 79 H Alkaline Phosphatase 162 H Total Protein 6.7 Albumin 3.7 Microbiology Microbiology Results: Microbiology 08/28/24 21:26 Blood - Venous Blood Culture - Preliminary No growth after 48 hours. 08/28/24 21:26 Blood - Venous Blood Culture - Preliminary No growth after 48 hours. 08/27/24 23:39 Blood - Venous Blood Culture - Preliminary No growth after 48 hours. 08/27/24 23:39 Blood - Venous Blood Culture - Final Coag negative Staphylococcus 08/28/24 Unknown Urine Catheterized - Caraballo Catheter Urine Culture - Final Procedures Date of Service Date of Service: 09/01/24 Assessment & Plan Assessment and plan (1) Acute kidney injury superimposed on chronic kidney disease: Status: Acute (2) Acute metabolic encephalopathy: Status: Acute (3) Hypotension: Status: Acute (4) End stage renal disease: Status: Acute Plan pt with ESRD MWF, did NOT miss HD, here with AMS and requiring vasopressor support for hypotension. creatinine increased after HD, will check in again with HD RN regarding recirculation during HD Has AV graft on left upper extremity, no erythema anemia due to CKD no indication for epogen at present calcium is normal phosphorous low, ok to continue to monitor volume status remains euvolemic Discussed with Dr Samuel Time Spent With Patient Time: Total time managing care of this patient today ____ minutes. Progress Note: Quality Stroke Does the patient have a stroke diagnosis?: No
[2024-09-01] MEDS: Piperacillin Sodium/Tazobactam 4.5 GM in 0.9 % Sodium Chloride 100 ML IV ×2 (10:21→23:09)
--- NOTE | 2024-09-01 12:47 | MHC.SL.SWA ---
Speech Pathologist Impression: Risk of Aspiration Due to: Lethargy Medically Fragile Poor PO Intake Reduced Cognition Dysphasia Diet Status: Recommend continue on Puree (NDD1) with THIN liquids, straw ok, pills crushed in puree. Liquid Consistency and Strategies for Safe Swallow: Liquid Intake Recommendation: Thin Liquid Intake Strategies: Small Sips Solid Food Consistency: Dietary Recommendations: Pureed (NDD1) Additional Modifications to Solid Foods: Oral Medication Intake: Crushed with Puree Please contact the pharmacy regarding appropriate crushable or liquid drug formulations that are available whenever modified delivery is recommended. Compensatory Strategies and Precautions to be Taken for Safe Swallow: Sitting Upright (90 deg) Liquids from Cup Liquids from Straw Small Bites and Sips Alternate Liquids/Solids Rate of Ingestion Change Supervision While Eating and Drinking for Safe Swallow: Total Assistance (1:1) Foods to Avoid: Swallowing Recommended Treatments: Compens. Strategy Educat. Recommendation for Speech: Inpatient Speech Therapy Comment: Patient seen at lunch, repositioned to be seated upright in bed, which caused her some discomfort after about 5 minutes in this position. Patient w/wound @ coccyx. Patient expressed interest in lunch which was mashed potatoes with gravy and two desserts. Patient took bites of potatoes, produced a slow oral phase with tongue pumping and timely swallow. Patient took sip of gingerale by straw, producing a well timed swallow with no clinical signs of aspiration, but then stated she did not like it or want more. Patient consumed about 1/2 the meal of mashed potatoes, then declined more, with c/o discomfort sitting up. Desserts, drinks were removed from tray to be given later, patient lowered to more comfortable positions. Spoke with Granddaughter who is GSR at [facility] [place] who planned to return to offer her desserts. Granddaughter w/ ? advancing diet, as patient was on regular diet prior to admission, not recommended today, but assured MANAGER BIOSTATISTICS will continue to re-assess for advancement. Recommend continue on Puree (NDD1) with THIN liquids, straw ok, pills crushed in puree. Frequency/Duration: Daily Date Range for Service Req: Admission-Discharge Timeline to reassess: PRN Semiconductor Dies Loader Clinican/Clinical Fellow: No Supervisory Statement: I have reviewed and agree with the student/clinical fellow's documentation: N/A Speech Language Pathologist: Sanam Crocker M.A., CCC-MANAGER BIOSTATISTICS
--- NOTE | 2024-09-01 14:11 | HO.PM.IMPN ---
Subjective Subjective Date of Service: 09/01/24 Interval History: Seen and examined this morning Follow-up for UTI No overnight events Patient awake, alert, confused. No specific complaints Review of Systems Review of Systems: Yes all other systems are reviewed and are negative Constitutional Constitutional: Denies fever(s) Cardiovascular Cardiovascular: Denies chest pain and Denies dyspnea Respiratory Respiratory: Denies dyspnea Neurologic Neurologic: Reports confusion Psychiatric Psychiatric: Reports confusion Physical Exam Vital Signs: Vital Signs: Last Vital Signs Temp 98.6 F 09/01/24 11:50 Pulse 104 H 09/01/24 11:50 Resp 20 09/01/24 11:50 BP 105/62 09/01/24 11:50 Pulse Ox 98 09/01/24 11:50 O2 Del Method Room Air 09/01/24 11:50 O2 Flow Rate 2 08/29/24 02:00 BMI result Body Mass Index 30.7 Const: General: alert, awake and confusion Nutritional Appearance: overweight Orientation/consciousness: oriented to person and confusion Resp: Effort & Inspection: normal respiratory effort, able to speak in complete sentences, no respiratory distress and no use of accessory muscles Cardio: Rate: tachycardic (mild) GI: Inspection: No distended Palpation (GI): Soft to palpation and nontender Neuro: General: oriented to person, moves all extremities and confusion Extrem: Other: Feet in offloading boots Objective Data Active Medications Heparin Sodium (Porcine) (Heparin Sodium,Porcine 5,000 Unit/Ml Vial) 5,000 unit SUBCUT Q12H [facility] Last Admin: 09/01/24 06:06 Dose: 5,000 unit Documented By: RUY Piperacillin Sod/Tazobactam (Sod 4.5 gm/ Sodium Chloride) 100 mls @ 200 mls/hr IV Q12H [facility] Last Infusion: 09/01/24 11:06 Dose: Infused Documented By: ALICIA Labs 09/01/24 05:45 09/01/24 05:45 Labs: Laboratory Results - last 24 hr 09/01/24 05:45 MCV 96.1 MCH 31.6 MCHC 32.9 RDW 15.1 Plt Count 220 D MPV 10.3 Immature Gran % (Auto) 0.4 Neut % (Auto) 63.2 Lymph % (Auto) 19.7 L [place] % (Auto) 15.1 H Eos % (Auto) 1.1 Baso % (Auto) 0.5 Lymph # (Auto) 2.3 [place] # (Auto) 1.8 H Eos # (Auto) 0.1 Baso # (Auto) 0.1 Abs Immat Gran (auto) 0.05 H Absolute Neuts (auto) 7.4 Absolute Nucleated RBC 0.000 Nucleated RBC % (auto) 0.0 Smear Tech's Comments VERIFIED Anion Gap 26 H Estim Creat Clear Calc 8.9 Estimated GFR 9 Fasting Glucose 93 Calcium 10.9 H D Total Bilirubin 1.4 H AST 32 H ALT 79 H Alkaline Phosphatase 162 H Total Protein 6.7 Albumin 3.7 Assessment and Plan (1) UTI (urinary tract infection): Status: Acute (2) Hypotension: Status: Acute Plan 88-year-old female with history of unspecified dementia, ESRD on dialysis MWF, hyperlipidemia, hypertension, COPD, hyperlipidemia, unspecified mood disorder presented to the emergency room for altered mental status and lethargy admitted to the ICU for management of hypotension/ sepsis due to UTI requiring pressor support. Maintained on pressors; over the next 48 hours weaned off pressors and was able to be transferred to telemetry 08/30 Septic shock due to probable source Status post vasopressor support in the ICU -normotensive at present -continue to hold Inderal -add back when clinically appropriate Acute UTI -active urinary sediment in ER initially. Given a dose of ceftriaxone; urine collected approximately 8 hours after dose. Culture unremarkable. Given presentation would complete course of Zosyn and switch to Augmentin on d/c DC vancomycin Delirium in known backdrop of dementia awake alert today, confused seen by speech - recommend NDD1 diet End-stage renal disease on hemodialysis -follow renals/divalents -dialysis as per renal mood Resume baseline bupropion, Effexor pancytopenia resolved likely due to acute illness DNR DNI Heparin dispo- returned to long-term care at [facility] when medically stable Will require ongoing hospitalization for ongoing specialty consultation along with speech evaluation. Also require continued IV antibiotics pending completion of cultures Quality Stroke Does the patient have a stroke diagnosis?: No VTE Prior VTE?: No VTE Risk Level:: Medical - moderate - high VTE Device Contraindication: N/A - Device Ordered VTE Drug Contraindication: N/A - Med Ordered
[2024-09-01] MEDS: Atorvastatin Calcium 40 MG TABLET PO (20:44)
[2024-09-01] MEDS: Famotidine 20 MG TABLET PO (20:44)
[2024-09-02 02:58] VITALS: BP 131/61; PULSE 109; RESP 17; TEMP 36.8; O2SAT 99
[2024-09-02] MEDS: Heparin Sodium,Porcine 5,000 UNIT/ML VIAL 5000 UNIT SUBCUT ×2 (05:01→17:37)
[2024-09-02 07:25] VITALS: BP 124/61; PULSE 113; RESP 12; TEMP 36.8; O2SAT 97
[2024-09-02 07:30] VITALS: BMI 29.2
[2024-09-02] MEDS: Sevelamer Carbonate Tablet 800 MG TABLET PO (08:50)
--- NOTE | 2024-09-02 09:04 | HO.WOUND ---
Wound Consult: Follow up 88yr old?female admitted [place] [facility] [place] - See progress notes and H&P for detailed history.? Wound consult follow up for Coccyx wound POA.? Patient agreeable to assessment and photo documentation. 08/28/24 09/02/24 Sacrum Etiology: ?Stage 2 Pressure Injury Present on Admission Wound Bed: scattered red pink clean wound bed Drainage / Odor: scant serosang drainge Edges: ?irregular and attached Leilani wound: ? Slow to gladis red pink erythema, MASD - hyperpigmentation noted - No fluctuabnce no induration Pain: pain reported Goals of Treatment: Triad to protect from friction and moisture Note patient is incontinent of frequent liquid stools recommend d/c foam dressing and use triad only. JONNY mattress in use, wedges and heel protector boots in use as well. Recommendations: 1. Turn and Reposition every 2 hours and as needed for patient comfort.? Use pillows or wedges to support off loading positions. 2. Off Load all bony prominences with use of pillows and heel boots if needed.? Apply Preventative foams where needed. ? 3. Monitor for incontinence and moisture control, use barrier creams when needed for prevention and treatment. 4. Provide adequate and supplemental nutrition.? 5. Continue low air loss mattress. 6. When applicable maintain blood glucose levels per Providers order. 7. Sacrum -Off Load Pressure - Cleanse with PH balance spray or wipes, pat dry. ?Apply thin layer of Triad to wound bed - only pat and dab no scrub and rub when soiling occurs. Reapply thin layer PRN after each episode of incontinence. Re-consult wound care Nurse for wound deterioration or wound changes.
[2024-09-02 10:24] LABS: Alanine Aminotransferase 63 U/L (0-31); Albumin Level 4.1 g/dL (3.5-5.0); Alkaline Phosphatase 163 U/L (39-117); Anion Gap 23 (12-20); Aspartate Amino Transferase 32 U/L (5-31); Bilirubin Direct 0.5 mg/dL (0.0-0.5); Bilirubin Total 1.4 mg/dL (0.0-1.0); Blood Urea Nitrogen 19 mg/dL (9-16); Calcium 10.8 mg/dL (8.4-10.2); Carbon Dioxide 19 mmol/L (22-29); Chloride 99 mmol/L (96-108); Creatinine Clr Calc Pharmacy 8.8; Estimated Glomerular Filt Rate 9; Glucose Random 138 mg/dL (60-115); Potassium 3.2 mmol/L (3.3-5.1); Sodium 138 mmol/L (135-145); Total Protein 7.6 g/dL (6.5-8.0)
--- NOTE | 2024-09-02 10:34 | P.PNNPD_ITS ---
Subjective Subjective Date of Service: 09/02/24 This patient was seen during dialysis. Interval history: 88-year-old lady with underlying dementia, end-stage renal disease hemodialysis admitted on 08/28/2024 with septic shock requiring pressor support further compl icated by septic encephalopathy 2/2 possible UTI. pt has been getting regular HD at facility and did not miss any HD sessions. she received HD Thursday (uremic with myoclonus). Today she is lethargic but awakens to voice at start of HD at bedside today, answers questions though remains disoriented at baseline. per HD RN, pt became hypotensive at bedside today, SBP in 70s and pt minimally responsive, was given 300mL NS and pressures improved, though did have to end HD session 15 minutes due to hypotension and reduced responsiveness. Creatinine 2.44 08/31, 09/01 Cr 4.48, today 4.44 phosphorous is low on 08/31 at 1.9 calcium and other electrolytes are normal. patient remains oliguric (caraballo), no urine output recorded for last 24 hours, though she reportedly has some urine output on incontinence pad day prior. patient states she is tired, denies other concerns. Physical Exam Vital Signs: Vital Signs: Last Vital Signs Temp 98.3 F 09/02/24 07:25 Pulse 113 H 09/02/24 07:25 Resp 12 09/02/24 07:25 BP 124/61 09/02/24 07:25 Pulse Ox 97 09/02/24 07:25 O2 Del Method Room Air 09/02/24 07:25 O2 Flow Rate 2 08/29/24 02:00 BMI result Body Mass Index 29.2 Const: General: comfortable, no acute distress and confusion (baseline dementia) Orientation/consciousness: oriented to person, oriented to place and confusion (baseline dementia) Neck: Neck: Yes no JVD Resp: Effort & Inspection: able to speak in complete sentences Auscultation: clear to auscultation bilaterally Cardio: Jugular venous distension: no JVD Rate: regular rate Rhythm: regular rhythm Heart sounds: S1 normal heart sound present and S2 normal heart sound present GI: Palpation (GI): Soft to palpation Rectal Exam - Female: No tenderness : Other: caraballo in place, oliguric General: Yes no CVA tenderness Back/Spine/Pelvis: Back: no CVA tenderness Skin: Rashes: no rashes Neuro: Other: No tremors General: oriented to person, oriented to place and confusion (baseline dementia) Extrem: General: Yes normal to inspection, No edema and No pedal edema Assessment & Plan Assessment and plan (1) Acute metabolic encephalopathy: Status: Acute (2) Hypotension: Status: Acute (3) End stage renal disease: Status: Acute (4) Anemia in chronic kidney disease: Status: Acute Plan pt with ESRD MWF, here with AMS and requiring vasopressor support for hypotension, treated for UTI, off pressors and seems to be at baseline mental status (dementia). Seen on dialysis. Reviewed today's clinical events on HD. added midodrine 10mg Thursday, Thursday, Thursday prior to HD sessions recommend echocardiogram to workup new hypotension will also check cortisol for adrenal insufficiency Has AV graft on left upper extremity, no erythema, functioning well during HD today. H&H 13.6 & 41.4, no indication for epogen at present calcium mildly elevated, 10.8 phosphorous low, ok to continue to monitor volume status remains euvolemic Discussed with Time Spent With Patient Time: Total time managing care of this patient today ____ minutes. Procedures Date of Service Date of Service: 09/02/24
[2024-09-02 11:00] VITALS: BMI 29.2
--- NOTE | 2024-09-02 11:23 | MHC.CLN ---
PT WITH INCREASED NUTRITION RISK R/T PRESSURE INJURY PO INTAKE POOR DIET RX: LOW K+, LOW PHOS PUREED-PT MAY BENEFIT FROM LIBERALIZED DIET TO INCREASE VARIETY RECOMMEND ADDING ENSURE BID TO PROMOTE WOUND HEALING SUPP TO PROVIDE 700KCALS, 40G PROTEIN MONITOR PO INTAKE AND ENCOURAGE SUPPLEMENTS SEE ALSO FULL CLINICAL NUTRITION ASSESSMENT
[2024-09-02 12:20] LABS: Glucose, Whole Blood 125 mg/dL (60-115)
--- NOTE | 2024-09-02 12:54 | HO.PM.IMPN ---
Subjective Subjective Date of Service: 09/02/24 Interval History: seen and examined this morning follow up for septic shock had HD this morning and was noted to become less responsive, blood pressure checked and was low, received fluid bolus and bp and mental status improved Review of Systems Review of Systems: Yes all other systems are reviewed and are negative Constitutional Constitutional: Denies fever(s) Neurologic Neurologic: Reports confusion Psychiatric Psychiatric: Reports confusion Physical Exam Vital Signs: Vital Signs: Last Vital Signs Temp 98.3 F 09/02/24 07:25 Pulse 113 H 09/02/24 07:25 Resp 12 09/02/24 07:25 BP 124/61 09/02/24 07:25 Pulse Ox 97 09/02/24 07:25 O2 Del Method Room Air 09/02/24 07:25 O2 Flow Rate 2 08/29/24 02:00 BMI result Body Mass Index 29.2 Const: Other: solmnolent but arousable General: confusion Nutritional Appearance: overweight Orientation/consciousness: oriented to person and confusion Resp: Effort & Inspection: normal respiratory effort, able to speak in complete sentences, no respiratory distress and no use of accessory muscles Cardio: Rate: tachycardic GI: Inspection: No distended Palpation (GI): Soft to palpation and nontender Neuro: Other: grossly nonfocal General: oriented to person, moves all extremities and confusion Objective Data Active Medications Aspirin (Aspirin Enteric Coated 81 Mg Tablet.Dr) 81 mg PO DAILY [facility] Atorvastatin Calcium (Atorvastatin Calcium 40 Mg Tablet) 40 mg PO BEDTIME [facility] Last Admin: 09/01/24 20:44 Dose: 40 mg Documented By: JA Bupropion HCl (Bupropion Hcl Xl 150 Mg Tab.Er.24h) 150 mg PO DAILY [facility] Famotidine (Famotidine 20 Mg Tablet) 20 mg PO BID [facility] Last Admin: 09/01/24 20:44 Dose: 20 mg Documented By: JA Heparin Sodium (Porcine) (Heparin Sodium,Porcine 5,000 Unit/Ml Vial) 5,000 unit SUBCUT Q12H [facility] Last Admin: 09/02/24 05:01 Dose: 5,000 unit Documented By: JA Piperacillin Sod/Tazobactam (Sod 4.5 gm/ Sodium Chloride) 100 mls @ 200 mls/hr IV Q12H [facility] Last Infusion: 09/01/24 23:40 Dose: Infused Documented By: JA Midodrine (Midodrine Hcl 10 Mg Tablet) 10 mg PO MoWeFr@0900 [facility] Sevelamer Carbonate (Sevelamer Carbonate Tablet 800 Mg Tablet) 800 mg PO TIDAC [facility] Last Admin: 09/02/24 08:50 Dose: 800 mg Documented By: LUIGI Venlafaxine HCl (Venlafaxine Hcl Er 150 Mg Cap.Er.24h) 150 mg PO DAILY [facility] Labs 09/01/24 05:45 09/02/24 09:17 Labs: Laboratory Results - last 24 hr 08/27/24 08/28/24 09/02/24 23:39 00:13 09:17 MCV TNP 102.4 H MCH TNP MCHC TNP RDW TNP Plt Count TNP 155 L MPV TNP Immature Gran % (Auto) TNP Neut % (Auto) TNP Lymph % (Auto) TNP [place] % (Auto) TNP Eos % (Auto) TNP Baso % (Auto) TNP Lymph # (Auto) TNP [place] # (Auto) TNP Eos # (Auto) TNP Baso # (Auto) TNP Abs Immat Gran (auto) TNP Absolute Neuts (auto) TNP Absolute Nucleated RBC TNP Nucleated RBC % (auto) TNP Anion Gap 23 H Estim Creat Clear Calc 8.8 Estimated GFR 9 POC Glucose Random Glucose 138 H Calcium 10.8 H Total Bilirubin 1.4 H Direct Bilirubin 0.5 AST 32 H ALT 63 H Alkaline Phosphatase 163 H Troponin I High Sens TNP Total Protein 7.6 Albumin 4.1 09/02/24 11:45 MCV MCH MCHC RDW Plt Count MPV Immature Gran % (Auto) Neut % (Auto) Lymph % (Auto) [place] % (Auto) Eos % (Auto) Baso % (Auto) Lymph # (Auto) [place] # (Auto) Eos # (Auto) Baso # (Auto) Abs Immat Gran (auto) Absolute Neuts (auto) Absolute Nucleated RBC Nucleated RBC % (auto) Anion Gap Estim Creat Clear Calc Estimated GFR POC Glucose 125 H Random Glucose Calcium Total Bilirubin Direct Bilirubin AST ALT Alkaline Phosphatase Troponin I High Sens Total Protein Albumin Microbiology Microbiology Results: Microbiology 08/27/24 23:39 Blood Culture - Final Blood - Venous No growth after 5 days. Assessment and Plan (1) UTI (urinary tract infection): Status: Acute (2) End stage renal disease: Status: Acute (3) Hypotension: Status: Acute Plan 88-year-old female with history of unspecified dementia, ESRD on dialysis MWF, hyperlipidemia, hypertension, COPD, hyperlipidemia, unspecified mood disorder presented to the emergency room for altered mental status and lethargy admitted to the ICU for management of hypotension/ sepsis due to UTI requiring pressor support. Maintained on pressors; over the next 48 hours weaned off pressors and was able to be transferred to telemetry 08/30 Septic shock due to probable source urine cultures negative Status post vasopressor support in the ICU Blood pressure stable but drops during dialysis continue to hold Inderal -add back when clinically appropriate Acute UTI active urinary sediment in ER initially. Given a dose of ceftriaxone; urine collected approximately 8 hours after dose. Culture unremarkable. Given presentation would complete course of Zosyn and switch to Augmentin on d/c DC vancomycin Delirium in known backdrop of dementia awake alert today, confused likely at baseline seen by speech - recommend NDD1 diet End-stage renal disease on hemodialysis MWF schedule nephrology following midodrine added on dialysis days to prevent hypotension, monitor closely mood Resume baseline bupropion, Effexor pancytopenia resolved likely due to acute illness sacrum wound poa stage 2 pressure injury acrum -Off Load Pressure - Cleanse with PH balance spray or wipes, pat dry. ?Apply thin layer of Triad to wound bed - only pat and dab no scrub and rub when soiling occurs. Reapply thin layer PRN after each episode of incontinence. DNR DNI Heparin dispo- returned to long-term care at [facility] when medically stable Will require ongoing hospitalization for ongoing specialty consultation along with speech evaluation. Also require continued IV antibiotics pending completion of cultures Quality Stroke Does the patient have a stroke diagnosis?: No VTE Prior VTE?: No VTE Risk Level:: Medical - moderate - high VTE Device Contraindication: N/A - Device Ordered VTE Drug Contraindication: N/A - Med Ordered
--- NOTE | 2024-09-02 13:00 | CA_ITS ---
Transthoracic Echocardiogram Patient (Last, First, Middle): Naomy Doty A Gender: Female Date of : 1935 Age: 88 Procedure Date: 09/02/2024 Procedure Type: Transthoracic Echocardiogram Location: [facility] [place] Height: 160.02 cm Weight: 72.58 kg BSA: 1.76 m2 Heart Rate: bpm BP: 124 / 61 mmHg Surgeon'S Assistant: Referring MD: Rocio NAVARRO Symptoms: hypotension, tachycardia Study Quality: Fair ECG Rhythm: Sinus tachycardia Conclusions: - Normal left ventricular cavity size. There is mildly increased left ventricular wall thickness. The left ventricular systolic function is hyperdynamic. The visually estimated ejection fraction is >70%. - Normal right ventricular cavity size and systolic function. - There is mild aortic valve stenosis. - No obvious systolic anterior motion or the mitral valve leaflet or MR. LVOT gradient at rest 25 mm Hg, post valsalva 45 mm Hg. Findings Left Ventricle Normal left ventricular cavity size. There is mildly increased left ventricular wall thickness. The left ventricular systolic function is hyperdynamic. The visually estimated ejection fraction is >70%. There is no evidence of regional wall motion abnormalities. Diastolic function is normal for age. Right Ventricle Normal right ventricular cavity size and systolic function. Aortic Valve The aortic valve was not well visualized. There is mild calcification of the aortic valve. There is mild aortic valve stenosis. There is no aortic valve regurgitation. Mitral Valve The mitral valve appears normal. There is no mitral valve regurgitation. There is no mitral valve stenosis. Pulmonic Valve The pulmonic valve was not well visualized. Tricuspid Valve Normal tricuspid valve structure. There is no tricuspid valve regurgitation. The right ventricular systolic pressure is 41 mmHg. Indeterminate right atrial pressure. Great Vessels The aorta was not well visualized. Venous The inferior vena cava was not well visualized. Pericardium/Pleural There is no evidence of pericardial effusion. Prior Study Comparison Changes noted compared to prior study dated: 02/01/2020. Dynamic LVOT gradient noted. Hyperdynamic LV function. Measurements 2D Linear Measurements IVSd: 1.15 0.6-0.9/0.6-1.0 cm LVIDd: 2.83 3.9-5.3/4.2-5.9 cm LVIDd Index: 1.61 2.4-3.2/2.2-3.1 cm/m2 LVIDs: 2.20 2.0-3.6 cm LVPWd: 1.16 0.7-1.1 cm Ao Root: 2.40 2.1-3.5 cm LA Diam: 2.40 2.7-3.8/3.0-4.0 cm LAIDs Index: 1.36 1.5-2.3 cm/m2 LV Mass: 117.66 67-162/88-224 g LV Mass Index: 66.85 43-95/49-115 g/m2 LVOT Diam: 1.80 3.0+(-)1.3 cm Mitral Valve MV Pk E: 0.56 MV PK A: 1.08 MV Decel Time: 145.00 E/A: 0.50 E'Lateral: 7.83 E'Medial: 4.03 E/E' Med: 14.00 E/E' Lat: 7.20 PHT: 42.00 MVA PHT: 5.24 Decel [place] Mix: 3.89 Aortic Valve AoV Pk Toro: 2.14 AoV Mn Toro: 1.47 AoV VTI: 0.38 AoV Pk Grad: 18.00 Aov Mn Grad: 11.00 EMILEE Cont.VTI: 1.16 LVOT LVOT Pk Toro: 1.02 LVOT Mn Toro: 0.68 LVOT VTI: 0.18 LVOT Pk Grad: 4.00 LVOT Mn Grad: 2.00 LVOT Diam: 1.80 LVOT Area: 2.54 Diastolic Function MV Pk E: 0.56 MV Pk A: 1.08 E/A: 0.50 E'Medial: 4.03 E/E' Med: 14.00 E' Laterial: 7.83 E/E' Lat: 7.20 Right Ventricle TAPSE (mm): 19.00 TVS' Toro: 11.00 Tricuspid Valve TR Pk Toro: 3.09 TR Pk Grad: 38.00 RA Press: 3.00 RVSP: 41.00 Great Vessels Aorta Ao Root-2D: 2.40 2.0-3.7 cm Updated in Other Vendor System with Status of Final Alcides Sarabia MD electronically signed on 09/03/2024 3:20:34 PM with status of Final
--- NOTE | 2024-09-02 13:17 | P.CDIM_ITS ---
PROVIDER RESPONSE TEXT: To clarify, the appropriate diagnosis supported by the clinical indicators: Pressure (decubitus) ulcer stage 2 sacrum QUERY TEXT: PHYSICIAN'S DOCUMENTATION REQUEST Date of Query: 09/02/2024 10:23 AM EDT Patient Name: Naomy Doty Admit Date: 08/28/2024 Dear Rocio NAVARRO, A review of the medical record indicates additional documentation may be needed. Please review below and update the documentation accordingly. Clinical Indicators: Per Wound Consult 09/02/24: Sacrum Etiology: Stage 2 Pressure Injury Present on Admission Triad to protect from friction and moisture Based on the above, could you please provide further information regarding the ulcer/wound: Diabetic ulcer Please specify the location and laterality of the ulcer/wound Venous stasis ulcer Please specify the location and laterality of the ulcer/wound Arterial (ischemic) ulcer Please specify the location and laterality of the ulcer/wound Pressure (decubitus) ulcer stage 2 sacrum Traumatic wound Please specify the location and laterality of the ulcer/wound Non-healing surgical wound Please specify the location and laterality of the ulcer/wound Other (explain) Clinically unable to determine (explain) Thank you, Angie Joseph RN Use of terms such as suspected, likely, concern for, or probable (associated with a specific diagnosi s that is being evaluated, monitored, or treated as if it exists) are acceptable and can be coded in the inpatient se tting, when documented at the time of discharge. Please use your independent medical judgment in providing your response. THIS QUERY IS PART OF THE PERMANENT MEDICAL RECORD
[2024-09-02] MEDS: Piperacillin Sodium/Tazobactam 4.5 GM in 0.9 % Sodium Chloride 100 ML IV ×2 (13:43→22:03)
[2024-09-02 13:53] VITALS: BP 135/71
--- NOTE | 2024-09-02 14:45 | MHC.SL.SWA ---
Speech Pathologist Impression: Risk of aspiration, Oropharyngeal dysphagia Risk of Aspiration Due to: Lethargy Medically Fragile Poor PO Intake Reduced Cognition Dysphasia Diet Status: Recommend UPGRADE to GROUND/MECH ALTERED (NDD2) solids, CONTINUE with THIN liquids, straw ok, pills crushed in puree. Liquid Consistency and Strategies for Safe Swallow: Liquid Intake Recommendation: Thin Liquid Intake Strategies: Small Sips Solid Food Consistency: Dietary Recommendations: Grnd/Mech Altered (NDD2) Additional Modifications to Solid Foods: Patient must be awake, alert, and attending to meal. Otherwise, hold tray if patient is too lethargic. Patient requires 1:1 feeding and strict aspiration precautions. Strategies recommended to promote oral clearance: give small bites, cue patient as needed to chew adequately, check oral cavity for clearance, clear residues with liquid wash or cues for dry swallow. Oral Medication Intake: Crushed with Puree Please contact the pharmacy regarding appropriate crushable or liquid drug formulations that are available whenever modified delivery is recommended. Compensatory Strategies and Precautions to be Taken for Safe Swallow: Sitting Upright (90 deg) Liquids from Cup Liquids from Straw Small Bites and Sips Alternate Liquids/Solids Rate of Ingestion Change Oral Check Supervision While Eating and Drinking for Safe Swallow: Total Assistance (1:1) Swallowing Recommended Treatments: Compens. Strategy Educat. Recommendation for Speech: Inpatient Speech Therapy Comment: Pt will require 1:1 assistance at this time. Ensure the Pt is alert and ready for PO prior to administration. Encourage most upright position pt will tolerate. Strategies recommended to promote oral clearance: give small bites, check oral cavity for clearance, ensure patient cleared bolus before giving more bites, alternate bites/sips, cue patient for dry swallow as needed. Family reports patient was eating regular texture foods prior to admission. This is also indicated on paperwork from [facility]. CIS COORDINATOR will continue to follow. Frequency/Duration: Daily Date Range for Service Req: Admission-Discharge Timeline to reassess: PRN Strategy Intern Clinican/Clinical Fellow: No Supervisory Statement: I have reviewed and agree with the student/clinical fellow's documentation: N/A Speech Language Pathologist: Ronda Lux M.A., [facility]-CIS COORDINATOR
--- NOTE | 2024-09-02 15:15 | MHC.CM.PN ---
EMR reviewed and per MD rounds, pt is not medically cleared for discharge due to management of UTI.
--- NOTE | 2024-09-02 15:22 | PC.NURSE ---
This RN called to dialysis due to low BP and increased lethargy. 1142 bp 67/31, 1146 106/69. Bolus given in by dialysis nurse. Patient opens eyes to verbal stimuli, more lethargic than initial assessment this morning. PA notified, discussing with hand riveter the plan. 1227 bp 125/59. Evaporator Supervisor order to give 10mg midodrine and stop dialysis early.
[2024-09-02 16:00] VITALS: BP 136/60; PULSE 103; RESP 18; TEMP 36.1
--- NOTE | 2024-09-02 18:47 | PC.NURSE ---
Difficulty obtaining oxygen saturation reading,patient not in distress,respiratory therapist notified
[2024-09-02 19:02] VITALS: O2SAT 100
[2024-09-02 20:00] VITALS: BP 153/69; PULSE 105; RESP 13; TEMP 37.1; O2SAT 98
[2024-09-02] MEDS: Famotidine 20 MG TABLET PO (21:12)
[2024-09-02] MEDS: Atorvastatin Calcium 40 MG TABLET PO (21:12)
[2024-09-03] VITALS (7 sets, daily range): BP systolic 106–144; BP diastolic 56–87; PULSE 94–117; RESP 14–20; TEMP 36–36.6; O2SAT 96–100
--- NOTE | 2024-09-03 | ECG_ITS ---
Test Reason : tachycardia Blood Pressure : / mmHG Vent. Rate : 115 BPM Atrial Rate : 115 BPM P-R Int : 176 ms QRS Dur : 074 ms QT Int : 338 ms P-R-T Axes : 090 038 060 degrees QTc Int : 467 ms Sinus tachycardia Cannot rule out Inferior infarct (cited on or before 27-AUG-2024) Abnormal ECG When compared with ECG of 27-AUG-2024 22:27, NM interval has decreased Vent. rate has increased BY 42 BPM Nonspecific T wave abnormality now evident in Inferior leads Referred By: Rocio Foreman Electronically Signed By:SHELLY ARAGON
[2024-09-03] MEDS: Heparin Sodium,Porcine 5,000 UNIT/ML VIAL 5000 UNIT SUBCUT ×2 (05:38→16:50)
[2024-09-03] MEDS: Famotidine 20 MG TABLET PO ×2 (08:44→20:48)
[2024-09-03] MEDS: Aspirin Enteric Coated 81 MG TABLET.DR PO (08:44)
[2024-09-03] MEDS: buPROPion HCl XL 150 MG TAB.ER.24H PO (08:44)
[2024-09-03] MEDS: Venlafaxine HCl ER 150 MG CAP.ER.24H PO (08:44)
[2024-09-03] MEDS: Sevelamer Carbonate Tablet 800 MG TABLET PO (08:44)
[2024-09-03] MEDS: Piperacillin Sodium/Tazobactam 4.5 GM in 0.9 % Sodium Chloride 100 ML IV ×2 (09:47→22:49)
[2024-09-03 10:49] LABS: Ammonia 50 umol/L (13-55)
[2024-09-03 10:50] LABS: Alanine Aminotransferase 48 U/L (0-31); Albumin Level 3.6 g/dL (3.5-5.0); Alkaline Phosphatase 131 U/L (39-117); Anion Gap 26 (12-20); Aspartate Amino Transferase 36 U/L (5-31); Bilirubin Direct 0.3 mg/dL (0.0-0.5); Blood Urea Nitrogen 27 mg/dL (9-16); Calcium 11.3 mg/dL (8.4-10.2); Carbon Dioxide 17 mmol/L (22-29); Chloride 101 mmol/L (96-108); Creatinine Clr Calc Pharmacy 7.1; Estimated Glomerular Filt Rate 7; Glucose Random 136 mg/dL (60-115); Potassium 4.1 mmol/L (3.3-5.1); Sodium 140 mmol/L (135-145); Total Protein 7.1 g/dL (6.5-8.0)
[2024-09-03 11:08] LABS: Cortisol Random 56.4 ug/dL
--- NOTE | 2024-09-03 12:15 | P.PNIM_ITS ---
Subjective Subjective Date of Service: 09/03/24 Interval History: Seen and examined this morning Follow-up for sepsis, encephalopathy opens eyes to verbal stimuli, answers simple questions, sleepy Review of Systems Review of Systems: Yes all other systems are reviewed and are negative Physical Exam 2 Vital Signs: Vital Signs: Last Vital Signs Temp 97.2 F 09/03/24 11:09 Pulse 117 H 09/03/24 11:09 Resp 20 09/03/24 11:09 BP 123/64 09/03/24 11:09 Pulse Ox 96 09/03/24 11:09 O2 Del Method Room Air 09/03/24 11:09 O2 Flow Rate 2 08/29/24 02:00 BMI result Body Mass Index 29.2 Const: Other: solmnolent but arousable General: alert and awake Nutritional Appearance: overweight O rientation/consciousness: oriented to person Resp: Effort & Inspection: normal respiratory effort, able to speak in complete sentences, no respiratory distress and no use of accessory muscles Cardio: Rate: tachycardic GI: Inspection: No distended Palpation (GI): Soft to palpation Neuro: Other: grossly nonfocal General: oriented to person and moves all extremities Extrem: Other: Feet in offloading boots Objective Data Active Medications Aspirin (Aspirin Enteric Coated 81 Mg Tablet.Dr) 81 mg PO DAILY [facility] Last Admin: 09/03/24 08:44 Dose: 81 mg Documented By: GISSELL Bupropion HCl (Bupropion Hcl Xl 150 Mg Tab.Er.24h) 150 mg PO DAILY [facility] Last Admin: 09/03/24 08:44 Dose: 150 mg Documented By: GISSELL Famotidine (Famotidine 20 Mg Tablet) 20 mg PO BID [facility] Last Admin: 09/03/24 08:44 Dose: 20 mg Documented By: GISSELL Heparin Sodium (Porcine) (Heparin Sodium,Porcine 5,000 Unit/Ml Vial) 5,000 unit SUBCUT Q12H [facility] Last Admin: 09/03/24 05:38 Dose: 5,000 unit Documented By: EVERETTE Piperacillin Sod/Tazobactam (Sod 4.5 gm/ Sodium Chloride) 100 mls @ 200 mls/hr IV Q12H [facility] Last Infusion: 09/03/24 10:29 Dose: Infused Documented By: GISSELL Midodrine (Midodrine Hcl 10 Mg Tablet) 10 mg PO MoWeFr@0900 [facility] Last Admin: 09/02/24 13:31 Dose: Not Given Documented By: LUIGI Non-Admin Reason: nephrology order to hold Sevelamer Carbonate (Sevelamer Carbonate Tablet 800 Mg Tablet) 800 mg PO TIDAC [facility] Last Admin: 09/03/24 10:16 Dose: Not Given Documented By: GISSELL Non-Admin Reason: AMS Venlafaxine HCl (Venlafaxine Hcl Er 150 Mg Cap.Er.24h) 150 mg PO DAILY [facility] Last Admin: 09/03/24 08:44 Dose: 150 mg Documented By: GISSELL Labs 09/01/24 05:45 09/03/24 10:03 Labs: Laboratory Results - last 24 hr 09/02/24 09/03/24 09/03/24 11:45 10:02 10:03 Anion Gap 26 H Estim Creat Clear Calc 7.1 Estimated GFR 7 POC Glucose 125 H Random Glucose 136 H Calcium 11.3 H Total Bilirubin 1.0 Direct Bilirubin 0.3 AST 36 H ALT 48 H Alkaline Phosphatase 131 H Ammonia 50 Total Protein 7.1 Albumin 3.6 Random Cortisol 56.4 Microbiology Microbiology Results: Microbiology 08/28/24 21:26 Blood Culture - Final Blood - Venous No growth after 5 days. 08/28/24 21:26 Blood Culture - Final Blood - Venous No growth after 5 days. Assessment and Plan (1) Anemia in chronic kidney disease: Status: Acute (2) UTI (urinary tract infection): Status: Acute (3) Hypotension: Status: Acute (4) Acute metabolic encephalopathy: Status: Acute Plan 88-year-old female with history of unspecified dementia, ESRD on dialysis MWF, hyperlipidemia, hypertension, COPD, hyperlipidemia, unspecified mood disorder presented to the emergency room for altered mental status and lethargy admitted to the ICU for management of hypotension/ sepsis due to UTI requiring pressor support. Maintained on pressors; over the next 48 hours weaned off pressors and was able to be transferred to telemetry 08/30 Septic shock due to probable source urine cultures negative Status post vasopressor support in the ICU Blood pressure stable but drops during dialysis continue to hold Inderal -add back when clinically appropriate Acute UTI active urinary sediment in ER initially. Given a dose of ceftriaxone; urine collected approximately 8 hours after dose. Culture unremarkable. Given presentation would complete course of Zosyn and switch to Augmentin on d/c DC vancomycin Delirium in known backdrop of dementia has been more lethargic will repeat belly CT, check brain CT check CPK, lactic acid,repeat CBC, VBG Repeat cultures not likely to add the clinical picture of has been on antibiotic therapy for several days Increasing creatinine and slight up trend and calcium not likely cause of lethargy per Nephrology Ammonia slightly elevated, if all other work up negative will consider trial of lactulose tachycardia likely due to propranolol being on hold. no fever Aspiration precautions End-stage renal disease on hemodialysis MWF schedule nephrology following midodrine added on dialysis days to prevent hypotension, monitor closely mood Resume baseline bupropion, Effexor pancytopenia resolved likely due to acute illness sacrum wound poa stage 2 pressure injury acrum -Off Load Pressure - Cleanse with PH balance spray or wipes, pat dry. ?Apply thin layer of Triad to wound bed - only pat and dab no scrub and rub when soiling occurs. Reapply thin layer PRN after each episode of incontinence. DNR DNI Heparin dispo- returned to long-term care at [facility] when medically stable Will require ongoing hospitalization for ongoing specialty consultation along with speech evaluation. Also require continued IV antibiotics pending completion of cultures Quality Stroke Does the patient have a stroke diagnosis?: No VTE Prior VTE?: No VTE Risk Level:: Medical - moderate - high VTE Device Contraindication: N/A - Device Ordered VTE Drug Contraindication: N/A - Med Ordered
[2024-09-03 13:51] LABS: VBG Base Excess 0.1 mmol/L; VBG HCO3 20 mmol/L (22-26); VBG pCO2 25 mmHg; VBG pH 7.53 (7.32-7.43); VBG pO2 70 mmHg
[2024-09-03 13:52] LABS: Basophils Absolute Auto 0.1 X10*3/uL (0.0-0.2); Basophils Percent Auto 0.3 % (0-2); Eosinophils Percent Auto 0.1 % (0-4); Hematocrit 42.6 % (37.0-47.0); Imm Gran Pct Auto 0.5 % (0.0-0.4); Lymphocytes Absolute Auto 1.7 X10*3/uL (1.2-4.9); Lymphocytes Percent Auto 8.9 % (20-40); MANUAL DIFF FLAG SCAN; Mean Corpuscular HGB Conc 32.9 g/dl (31.0-35.0); Mean Corpuscular Hemoglobin 31.5 pg (27.0-33.0); Mean Corpuscular Volume 95.7 fL (80.0-98.0); Mean Platelet Volume 10.6 fL (9.4-12.3); Monocytes Absolute Auto 1.8 X10*3/uL (0.1-1.2); Monocytes Percent Auto 9.2 % (2-11); NRBC Pct Auto 0.4 /100WBC (0.0-0.2); Neutrophils Absolute Auto 15.6 x10*3/uL (2.0-8.3); Platelet Count 280 X10*3/uL (160-400); Red Blood Count 4.45 X10*6/uL (4.20-5.50); Red Cell Distribution Width 15.5 % (11.0-16.0); SCAN SMEAR FLAG 1; Venous Blood Gas Refer to POC result; White Blood Count 19.3 X10*3/uL (4.8-10.8)
[2024-09-03 14:10] LABS: SLIDE REVIEW VERIFIED
[2024-09-03 14:23] LABS: Lactic Acid 2.5 mmol/L (0.5-2.0)
[2024-09-03 15:46] LABS: Reflex Lactate? Lactic Acid Added
[2024-09-03 16:45] LABS: Appearance Urine Turbid; Color Urine Dark Yellow; Glucose Urine UA 100 mg/dL (Negative); Leukocyte Esterase Urine Moderate (2+) (Negative); Nitrite Urine Negative (Negative); PH 5.5 (5.0-9.0); Specific Gravity - Urine >= 1.030 (1.005-1.025); UMIC TRIGGER UACC YES; Urine Blood Large (3+) (Negative); Urine Ketones Trace mg/dL (Negative); Urine Protein 100 (2+) mg/dL (Neg-Trace)
[2024-09-03] MEDS: Lactated Ringers 500 ML 250 ML IVCONT (16:48)
[2024-09-03] MEDS: ondansetron HCL 4 MG/2 ML VIAL IVPUSH (16:50)
[2024-09-03 16:59] LABS: Bacteria Urine Trace (None Seen); Hyaline Casts Urine >20 /LPF (0-2); RBC Urine >20 /HPF (0-2); Squamous Epithelial Cell Urine >20 /HPF (0-2); UACC Culture Trigger YES; WBC Urine 21-50 /HPF (0-5)
--- NOTE | 2024-09-03 17:12 | P.CONGS_ITS ---
History of Present Illness Consult details Consult date: 09/03/24 Narrative: Patient is an 88-year-old female with a collection of comorbidities and intercurrent medical problems including dementia and essentially can not give a history. Apparently patient had an episode of nausea and vomiting earlier today. CT scan demonstrated findings consistent with ileus. Patient was currently being treated for urosepsis. Patient has been given purgatives as well as stool softeners. She is passing some loose stool. Nurse caring for says she may have some impacted stool. Chart was reviewed and patient evaluated [facility] Past Medical History Medical History (Updated 09/03/24 @ 17:14 by Michael Ortiz MD) UTI (urinary tract infection) End stage renal disease Multiple falls Physical deconditioning ESRD (end stage renal disease) on dialysis Generalized anxiety disorder Panic disorder Primary dysthymia late onset Chronic kidney disease (CKD) Bacteremia Acute hyperkalemia Weakness High cholesterol COPD (chronic obstructive pulmonary disease) Kidney disease HTN (hypertension) Social History Social History Household Members: Other Housing: [facility] Do you presently have visiting nurse or other home services: Yes Alcohol intake: never Patient Tobacco Use Status: Never used Tobacco Currently Displaying Signs/Symptoms of Drug Intoxication Withdrawal: No Spiritual Healthcare Practices: unknown Advance Directives: Yes Advance Directives on File: Yes Advance Directives Date on File: 08/26/21 Nutrition Risks: On aspiration precautions Patient : No service: No Current occupational status: retired Meds Allergies Allergy/AdvReac Type Severity Reaction Status Date / Time No Known Allergies Allergy Verified 08/27/24 22:55 Active Medications: Current Medications Aspirin (Aspirin Enteric Coated 81 Mg Tablet.Dr) 81 mg PO DAILY [facility] Last Admin: 09/03/24 08:44 Dose: 81 mg Bupropion HCl (Bupropion Hcl Xl 150 Mg Tab.Er.24h) 150 mg PO DAILY [facility] Last Admin: 09/03/24 08:44 Dose: 150 mg Docusate Sodium (Docusate Sodium 100 Mg Capsule) 100 mg PO BEDTIME [facility] Famotidine (Famotidine 20 Mg Tablet) 20 mg PO BID [facility] Last Admin: 09/03/24 08:44 Dose: 20 mg Heparin Sodium (Porcine) (Heparin Sodium,Porcine 5,000 Unit/Ml Vial) 5,000 unit SUBCUT Q12H [facility] Last Admin: 09/03/24 16:50 Dose: 5,000 unit Piperacillin Sod/Tazobactam (Sod 4.5 gm/ Sodium Chloride) 100 mls @ 200 mls/hr IV Q12H [facility] Last Infusion: 09/03/24 10:29 Dose: Infused Lactated Ringer's (Lr) 500 mls @ 250 mls/hr IVCONT .Q2H ONE Stop: 09/03/24 18:33 Last Admin: 09/03/24 16:48 Dose: 250 mls/hr Midodrine (Midodrine Hcl 10 Mg Tablet) 10 mg PO MoWeFr@0900 [facility] Last Admin: 09/02/24 13:31 Dose: Not Given Ondansetron HCl (Ondansetron Hcl 4 Mg/2 Ml Vial) 4 mg IVPUSH Q8H PRN PRN Reason: Nausea and Vomiting Last Admin: 09/03/24 16:50 Dose: 4 mg Polyethylene Glycol (Polyethylene Glycol 3350 17 Gm Powd.Pack) 17 gm PO DAILY [facility] Sevelamer Carbonate (Sevelamer Carbonate Tablet 800 Mg Tablet) 800 mg PO TIDAC [facility] Last Admin: 09/03/24 16:56 Dose: Not Given Venlafaxine HCl (Venlafaxine Hcl Er 150 Mg Cap.Er.24h) 150 mg PO DAILY [facility] Last Admin: 09/03/24 08:44 Dose: 150 mg Home Medications ?Medication ?Instructions ?Recorded ?Confirmed ?Last Taken ?Type aspirin 81 mg tablet,delayed 81 mg PO DAILY 01/24/23 08/28/24 09/08/23 History release sevelamer carbonate 800 mg tablet 1 tab PO TIDAC 01/24/23 08/28/24 09/08/23 History venlafaxine 150 mg tablet,extended 1 tab PO DAILY 01/24/23 08/28/24 09/08/23 History release 24 hr atorvastatin 40 mg tablet 40 mg PO BEDTIME 07/24/23 08/28/24 09/08/23 History propranolol 20 mg tablet 20 mg PO BID 07/24/23 08/28/24 09/08/23 History lorazepam 0.5 mg tablet 0.5 mg PO BEDTIME 09/08/23 08/28/24 11/30/22 History acetaminophen 500 mg tablet 1,000 mg PO Q8H PRN Pain 12/01/23 08/28/24 Unknown History diphenhydramine HCl 25 mg tablet 25 mg PO BEDTIME 12/01/23 08/28/24 11/30/22 History melatonin 10 mg tablet 10 mg PO BEDTIME 12/01/23 08/28/24 11/30/22 History benzocaine 15 mg-menthol 2.6 mg 1 noman mucous membrane Q3H PRN Sore 08/28/24 08/28/24 Unknown History lozenges (Cepacol Sore Throat Throat (benzocaine-menthol)) bisacodyl 10 mg rectal suppository 10 mg NC DAILY PRN Constipation 08/28/24 08/28/24 Unknown History bupropion HCl 150 mg 24 hr tablet, 150 mg PO DAILY 08/28/24 08/28/24 Unknown History extended release clotrimazole 1 % topical cream 1 appl topical BID 08/28/24 08/28/24 Unknown History clotrimazole 1 % topical cream 1 appl topical DAILY PRN Rash 08/28/24 08/28/24 Unknown History docusate sodium 100 mg capsule 100 mg PO BEDTIME 08/28/24 08/28/24 Unknown History famotidine 20 mg tablet 20 mg PO BID 08/28/24 08/28/24 Unknown History lidocaine 5 % topical patch 1 patch topical DAILY 08/28/24 08/28/24 Unknown History lorazepam 0.5 mg tablet 0.5 mg PO MOWEFR@0900 08/28/24 08/28/24 Unknown History naloxone 4 mg/actuation nasal 1 spray intranasal Q3M PRN Opiate 08/28/24 08/28/24 Unknown History spray (Narcan) Reversal tramadol 50 mg tablet 50 mg PO Q8H PRN Pain 08/28/24 08/28/24 Unknown History Physical Exam 2 Vital Signs: Vital Signs: Last Vital Signs Temp 97.8 F 09/03/24 16:00 Pulse 107 H 09/03/24 16:00 Resp 18 09/03/24 16:00 BP 137/70 09/03/24 16:00 Pulse Ox 99 09/03/24 16:00 O2 Del Method Room Air 09/03/24 16:00 O2 Flow Rate 2 08/29/24 02:00 BMI result Body Mass Index 29.2 GI: Other: Abdomen corpulent, soft, benign, nontender. Results Labs 09/03/24 13:43 09/03/24 10:03 Labs: Abnormal lab results 09/03/24 09/03/24 09/03/24 Range/Units 10:03 13:43 13:48 WBC 19.3 H (4.8-10.8) X10*3/uL Immature Gran % (Auto) 0.5 H (0.0-0.4) % Neut % (Auto) 81.0 H (45-73) % Lymph % (Auto) 8.9 L (20-40) % Dare # (Auto) 1.8 H (0.1-1.2) X10*3/uL Abs Immat Gran (auto) 0.10 H (0.00-0.03) X10*3/uL Absolute Neuts (auto) 15.6 H (2.0-8.3) x10*3/uL Absolute Nucleated RBC 0.070 H (0.0-0.012) X10*3/uL Nucleated RBC % (auto) 0.4 H (0.0-0.2) /100WBC VBG pH 7.53 H (7.32-7.43) VBG HCO3 20 L (22-26) mmol/L Carbon Dioxide 17 L (22-29) mmol/L Anion Gap 26 H (12-20) BUN 27 H (9-16) mg/dL Creatinine 5.45 H* (0.5-1.4) mg/dL Random Glucose 136 H (60-115) mg/dL Lactic Acid 2.5 H* (0.5-2.0) mmol/L Calcium 11.3 H (8.4-10.2) mg/dL AST 36 H (5-31) U/L ALT 48 H (0-31) U/L Alkaline Phosphatase 131 H (39-117) U/L Total Creatine Kinase 367 H (26-140) U/L Ur Specific [place] (1.005-1.025) Urine Protein (Neg-Trace) mg/dL Urine Glucose (UA) (Negative) mg/dL Urine Blood (Negative) Ur Leukocyte Esterase (Negative) Urine RBC (0-2) /HPF Urine WBC (0-5) /HPF 09/03/24 Range/Units 15:45 WBC (4.8-10.8) X10*3/uL Immature Gran % (Auto) (0.0-0.4) % Neut % (Auto) (45-73) % Lymph % (Auto) (20-40) % Dare # (Auto) (0.1-1.2) X10*3/uL Abs Immat Gran (auto) (0.00-0.03) X10*3/uL Absolute Neuts (auto) (2.0-8.3) x10*3/uL Absolute Nucleated RBC (0.0-0.012) X10*3/uL Nucleated RBC % (auto) (0.0-0.2) /100WBC VBG pH (7.32-7.43) VBG HCO3 (22-26) mmol/L Carbon Dioxide (22-29) mmol/L Anion Gap (12-20) BUN (9-16) mg/dL Creatinine (0.5-1.4) mg/dL Random Glucose (60-115) mg/dL Lactic Acid (0.5-2.0) mmol/L Calcium (8.4-10.2) mg/dL AST (5-31) U/L ALT (0-31) U/L Alkaline Phosphatase (39-117) U/L Total Creatine Kinase (26-140) U/L Ur Specific [place] >= 1.030 H (1.005-1.025) Urine Protein 100 (2+) H (Neg-Trace) mg/dL Urine Glucose (UA) 100 H (Negative) mg/dL Urine Blood Large (3+) H (Negative) Ur Leukocyte Esterase Moderate (2+) H (Negative) Urine RBC >20 H (0-2) /HPF Urine WBC 21-50 H (0-5) /HPF Short CBC 09/03/24 09/03/24 09/03/24 Range/Units 13:43 13:43 13:43 WBC Cancelled 19.3 H Hgb Cancelled 14.0 Hct Cancelled Plt Count 09/03/24 09/03/24 Range/Units 13:43 13:43 WBC Hgb Hct 42.6 Plt Count Cancelled 280 D BMP 09/03/24 10:03 Sodium 140 Potassium 4.1 D Chloride 101 Carbon Dioxide 17 L BUN 27 H Creatinine 5.45 H* Calcium 11.3 H Cardiac Enzymes 09/03/24 Range/Units 13:43 Total Creatine Kinase 367 H (26-140) U/L Liver Function 09/03/24 Range/Units 10:03 Total Bilirubin 1.0 (0.0-1.0) mg/dL Direct Bilirubin 0.3 (0.0-0.5) mg/dL AST 36 H (5-31) U/L ALT 48 H (0-31) U/L Alkaline Phosphatase 131 H (39-117) U/L Albumin 3.6 (3.5-5.0) g/dL Urine 08/27/24 09/03/24 09/03/24 Range/Units 23:39 11:00 15:45 Urine Color Dark Yellow Cancelled Dark Yellow Urine Appearance Turbid Cancelled Turbid Urine pH 7.5 Cancelled 5.5 (5.0-9.0) Ur Specific [place] 1.015 Cancelled >= 1.030 H (1.005-1.025) Urine Protein 300 (3+) H Cancelled 100 (2+) H (Neg-Trace) mg/dL Urine Glucose (UA) Negative Cancelled 100 H (Negative) mg/dL All other labs normal. Assessment and Plan (1) Ileus due to infection: Status: Acute Plan At present, would treat patient conservatively with slowly advancing diet, purgatives, minimize analgesics, out of bed, incentive spirometry possible. Procedures Date of Service Date of Service: 09/03/24
[2024-09-03 17:19] LABS: ~Lactic Acid-LAB USE ONLY 2.6 mmol/L (0.5-2.0)
[2024-09-03 18:57] LABS: Reflex Lactate? 2 Y
[2024-09-03 19:50] LABS: ~Lactic Acid-LAB USE ONLY 2.9 mmol/L (0.5-2.0)
[2024-09-03 20:46] LABS: Cancel Lactic Acid Canceled
[2024-09-03] MEDS: Docusate Sodium 100 MG CAPSULE PO (20:48)
[2024-09-03] MEDS: 0.9 % Sodium Chloride 250 ML IV ×2 (20:49→22:57)
[2024-09-04] MEDS: 0.9 % Sodium Chloride 250 ML IV (00:10)
[2024-09-04 03:45] VITALS: BP 111/72; PULSE 99; RESP 17; TEMP 36; O2SAT 98
[2024-09-04] MEDS: Heparin Sodium,Porcine 5,000 UNIT/ML VIAL 5000 UNIT SUBCUT ×2 (04:27→16:21)
[2024-09-04] MEDS: Lactated Ringers 1,000 ML 999 ML IV (04:27)
[2024-09-04 05:38] VITALS: BMI 33.2
--- NOTE | 2024-09-04 06:40 | PC.NURSE ---
Patient is alert, lethargic, had poor intake. Had a scanty urine output for the 12 hour shift. Patient had 79ml on bladder scan. 1000ml LR bolus given as ordered. Will repeat bladder scan.
[2024-09-04 07:34] VITALS: BP 123/79; PULSE 99; RESP 16; TEMP 36.1
[2024-09-04] MEDS: Aspirin Enteric Coated 81 MG TABLET.DR PO (07:55)
[2024-09-04] MEDS: Venlafaxine HCl ER 150 MG CAP.ER.24H PO (07:55)
[2024-09-04] MEDS: Sevelamer Carbonate Tablet 800 MG TABLET PO ×2 (07:55→11:14)
[2024-09-04] MEDS: polyethylene glycoL 3350 17 GM POWD.PACK PO (07:55)
[2024-09-04] MEDS: buPROPion HCl XL 150 MG TAB.ER.24H PO (07:56)
[2024-09-04] MEDS: Famotidine 20 MG TABLET PO ×2 (07:56→21:33)
[2024-09-04] MEDS: Amoxicillin/Potassium Clav 500 MG TABLET PO (11:14)
[2024-09-04 12:00] VITALS: BP 125/75; PULSE 96; RESP 16; TEMP 36.6; O2SAT 94
--- NOTE | 2024-09-04 12:23 | P.PNIM_ITS ---
Subjective Subjective Date of Service: 09/04/24 Interval History: seen and examined this morning follow up for encephalopathy, UTI more awake and alert this morning, more interactive no specific complaints, but limited ROS due to dementia Physical Exam 2 Vital Signs: Vital Signs: Last Vital Signs Temp 96.9 F 09/04/24 07:34 Pulse 99 09/04/24 07:34 Resp 16 09/04/24 07:34 BP 123/79 09/04/24 07:34 Pulse Ox 98 09/04/24 03:45 O2 Del Method Room Air 09/04/24 03:45 O2 Flow Rate 2 08/29/24 02:00 BMI result Body Mass Index 33.2 Const: General: alert and awake Nutritional Appearance: overweight O rientation/consciousness: oriented to person Resp: Effort & Inspection: normal respiratory effort, able to speak in complete sentences, no respiratory distress and no use of accessory muscles Cardio: Rate: regular rate GI: Inspection: No distended Palpation (GI): Soft to palpation and nontender Neuro: Other: grossly nonfocal General: oriented to person and moves all extremities Extrem: Other: Feet in offloading boots; LUE with AVF with palpable thrill; RUE with edema Objective Data Active Medications Amoxicillin/Clavulanate Potassium (Amoxicillin/Potassium Clav 500 Mg Tablet) 500 mg PO Q24H [facility] Last Admin: 09/04/24 11:14 Dose: 500 mg Documented By: GISSELL Aspirin (Aspirin Enteric Coated 81 Mg Tablet.Dr) 81 mg PO DAILY [facility] Last Admin: 09/04/24 07:55 Dose: 81 mg Documented By: GISSELL Bupropion HCl (Bupropion Hcl Xl 150 Mg Tab.Er.24h) 150 mg PO DAILY [facility] Last Admin: 09/04/24 07:56 Dose: 150 mg Documented By: GISSELL Docusate Sodium (Docusate Sodium 100 Mg Capsule) 100 mg PO BEDTIME [facility] Last Admin: 09/03/24 20:48 Dose: 100 mg Documented By: EVERETTE Famotidine (Famotidine 20 Mg Tablet) 20 mg PO BID [facility] Last Admin: 09/04/24 07:56 Dose: 20 mg Documented By: GISSELL Heparin Sodium (Porcine) (Heparin Sodium,Porcine 5,000 Unit/Ml Vial) 5,000 unit SUBCUT Q12H [facility] Last Admin: 09/04/24 04:27 Dose: 5,000 unit Documented By: EVERETTE Midodrine (Midodrine Hcl 10 Mg Tablet) 10 mg PO MoWeFr@0900 [facility] Last Admin: 09/02/24 13:31 Dose: Not Given Documented By: LUIGI Non-Admin Reason: nephrology order to hold Ondansetron HCl (Ondansetron Hcl 4 Mg/2 Ml Vial) 4 mg IVPUSH Q8H PRN PRN Reason: Nausea and Vomiting Last Admin: 09/03/24 16:50 Dose: 4 mg Documented By: GISSELL Polyethylene Glycol (Polyethylene Glycol 3350 17 Gm Powd.Pack) 17 gm PO DAILY [facility] Last Admin: 09/04/24 07:55 Dose: 17 gm Documented By: GISSELL Sevelamer Carbonate (Sevelamer Carbonate Tablet 800 Mg Tablet) 800 mg PO TIDAC [facility] Last Admin: 09/04/24 11:14 Dose: 800 mg Documented By: GISSELL Venlafaxine HCl (Venlafaxine Hcl Er 150 Mg Cap.Er.24h) 150 mg PO DAILY [facility] Last Admin: 09/04/24 07:55 Dose: 150 mg Documented By: GISSELL Labs 09/03/24 13:43 09/03/24 10:03 Labs: Laboratory Results - last 24 hr 09/03/24 09/03/24 09/03/24 11:00 13:43 13:43 MCV Cancelled 95.7 MCH Cancelled MCHC RDW Plt Count MPV Immature Gran % (Auto) Neut % (Auto) Lymph % (Auto) [place] % (Auto) Eos % (Auto) Baso % (Auto) Lymph # (Auto) [place] # (Auto) Eos # (Auto) Baso # (Auto) Abs Immat Gran (auto) Absolute Neuts (auto) Absolute Nucleated RBC Nucleated RBC % (auto) Smear Tech's Comments VBG pH VBG pCO2 VBG pO2 VBG HCO3 VBG O2 Saturation VBG Base Excess Lactic Acid Lactic Acid F/U @ 2Hr Lactic Acid F/U @ 4Hr Total Creatine Kinase Urine Color Cancelled Urine Appearance Cancelled Urine pH Cancelled Ur Specific [place] Cancelled Urine Protein Cancelled Urine Glucose (UA) Cancelled Urine Ketones Cancelled Urine Blood Cancelled Urine Nitrite Cancelled Ur Leukocyte Esterase Cancelled Urine RBC Urine WBC Ur Squamous Epith Cells Urine Bacteria Hyaline Casts 09/03/24 09/03/24 09/03/24 13:43 13:43 13:43 MCV MCH 31.5 MCHC Cancelled 32.9 RDW Cancelled 15.5 Plt Count Cancelled MPV Immature Gran % (Auto) Neut % (Auto) Lymph % (Auto) [place] % (Auto) Eos % (Auto) Baso % (Auto) Lymph # (Auto) [place] # (Auto) Eos # (Auto) Baso # (Auto) Abs Immat Gran (auto) Absolute Neuts (auto) Absolute Nucleated RBC Nucleated RBC % (auto) Smear Tech's Comments VBG pH VBG pCO2 VBG pO2 VBG HCO3 VBG O2 Saturation VBG Base Excess Lactic Acid Lactic Acid F/U @ 2Hr Lactic Acid F/U @ 4Hr Total Creatine Kinase Urine Color Urine Appearance Urine pH Ur Specific [place] Urine Protein Urine Glucose (UA) Urine Ketones Urine Blood Urine Nitrite Ur Leukocyte Esterase Urine RBC Urine WBC Ur Squamous Epith Cells Urine Bacteria Hyaline Casts 09/03/24 09/03/24 09/03/24 13:43 13:43 13:43 MCV MCH MCHC RDW Plt Count 280 D MPV Cancelled 10.6 Immature Gran % (Auto) 0.5 H Neut % (Auto) 81.0 H Lymph % (Auto) 8.9 L [place] % (Auto) 9.2 Eos % (Auto) 0.1 Baso % (Auto) 0.3 Lymph # (Auto) 1.7 [place] # (Auto) 1.8 H Eos # (Auto) 0.0 Baso # (Auto) 0.1 Abs Immat Gran (auto) 0.10 H Absolute Neuts (auto) 15.6 H Absolute Nucleated RBC Cancelled 0.070 H Nucleated RBC % (auto) Cancelled Smear Tech's Comments VBG pH VBG pCO2 VBG pO2 VBG HCO3 VBG O2 Saturation VBG Base Excess Lactic Acid Lactic Acid F/U @ 2Hr Lactic Acid F/U @ 4Hr Total Creatine Kinase Urine Color Urine Appearance Urine pH Ur Specific [place] Urine Protein Urine Glucose (UA) Urine Ketones Urine Blood Urine Nitrite Ur Leukocyte Esterase Urine RBC Urine WBC Ur Squamous Epith Cells Urine Bacteria Hyaline Casts 09/03/24 09/03/24 09/03/24 13:43 13:48 15:45 MCV MCH MCHC RDW Plt Count MPV Immature Gran % (Auto) Neut % (Auto) Lymph % (Auto) [place] % (Auto) Eos % (Auto) Baso % (Auto) Lymph # (Auto) [place] # (Auto) Eos # (Auto) Baso # (Auto) Abs Immat Gran (auto) Absolute Neuts (auto) Absolute Nucleated RBC Nucleated RBC % (auto) 0.4 H Smear Tech's Comments VERIFIED VBG pH 7.53 H VBG pCO2 25 VBG pO2 70 VBG HCO3 20 L VBG O2 Saturation 94.0 VBG Base Excess 0.1 Lactic Acid 2.5 H* Lactic Acid F/U @ 2Hr Lactic Acid F/U @ 4Hr Total Creatine Kinase 367 H Urine Color Dark Yellow Urine Appearance Turbid Urine pH 5.5 Ur Specific [place] >= 1.030 H Urine Protein 100 (2+) H Urine Glucose (UA) 100 H Urine Ketones Trace Urine Blood Large (3+) H Urine Nitrite Negative Ur Leukocyte Esterase Moderate (2+) H Urine RBC >20 H Urine WBC 21-50 H Ur Squamous Epith Cells >20 Urine Bacteria Trace Hyaline Casts >20 09/03/24 09/03/24 16:54 19:29 MCV MCH MCHC RDW Plt Count MPV Immature Gran % (Auto) Neut % (Auto) Lymph % (Auto) [place] % (Auto) Eos % (Auto) Baso % (Auto) Lymph # (Auto) [place] # (Auto) Eos # (Auto) Baso # (Auto) Abs Immat Gran (auto) Absolute Neuts (auto) Absolute Nucleated RBC Nucleated RBC % (auto) Smear Tech's Comments VBG pH VBG pCO2 VBG pO2 VBG HCO3 VBG O2 Saturation VBG Base Excess Lactic Acid Lactic Acid F/U @ 2Hr 2.6 H* Lactic Acid F/U @ 4Hr 2.9 H* Total Creatine Kinase Urine Color Urine Appearance Urine pH Ur Specific [place] Urine Protein Urine Glucose (UA) Urine Ketones Urine Blood Urine Nitrite Ur Leukocyte Esterase Urine RBC Urine WBC Ur Squamous Epith Cells Urine Bacteria Hyaline Casts Assessment and Plan (1) Ileus due to infection: Status: Acute (2) UTI (urinary tract infection): Status: Acute (3) End stage renal disease: Status: Acute Plan 88-year-old female with history of unspecified dementia, ESRD on dialysis MWF, hyperlipidemia, hypertension, COPD, hyperlipidemia, unspecified mood disorder presented to the emergency room for altered mental status and lethargy admitted to the ICU for management of hypotension/ sepsis due to UTI requiring pressor support. Maintained on pressors; over the next 48 hours weaned off pressors and was able to be transferred to telemetry 08/30 Admitted to ICU with Septic shock due to probable source urine cultures negative (received abx before culture obtained). S/p vasopressor support in the ICU. Blood pressure stable but drops during dialysis 09/03 developed increasing WBC count, tachycardia and elevated LA - repeat infectious work up obtained and no additional source of infection identified repeat UCx also negative to day, repeat BCx still pending belly CT showing ileus and stool ball; tachycardia resolved after IVF. Tachycardia and lactic acidosis likely secondary to hypovolemia rather than sepsis Phlebotomy reporting difficulty collecting repeat labs as unable to use left upper extremity due to AV fistula and edema in right arm from infiltrated IV, delay in collecting repeat labs this am - pending at this time Acute UTI active urinary sediment in ER initially. despite negative cultures Given urine collected after abx and presentation would complete course of abx, will switch to po augmentin Ileus Seen by General surgery, plan for conservative management Diet decreased to clear liquids, advance slowly Constipation Has been having overflow diarrhea but CT scan showed stool ball on imaging Some able to be removed enema Continue bowel regimen Delirium in known backdrop of dementia - overall better today ?due to hypovolemia has been more lethargic brain ct negative Increasing creatinine and slight up trend and calcium not likely cause of lethargy per Nephrology Ammonia slightly elevated, but having BMs, no asterixis tachycardia likely due to propranolol being on hold. no fever Aspiration precautions End-stage renal disease on hemodialysis MWF schedule nephrology following midodrine added on dialysis days to prevent hypotension, monitor closely mood Resumed on baseline bupropion, Effexor pancytopenia resolved likely due to acute illness sacrum wound poa stage 2 pressure injury acrum -Off Load Pressure - Cleanse with PH balance spray or wipes, pat dry. ?Apply thin layer of [place] to wound bed - only pat and dab no scrub and rub when soiling occurs. Reapply thin layer PRN after each episode of incontinence. DNR DNI Heparin dispo- returned to long-term care at [facility] when medically stable Will require ongoing hospitalization for ongoing specialty consultation along with speech evaluation. Also require continued IV antibiotics pending completion of cultures Quality Stroke Does the patient have a stroke diagnosis?: No VTE Prior VTE?: No VTE Risk Level:: Medical - moderate - high VTE Device Contraindication: N/A - Device Ordered VTE Drug Contraindication: N/A - Med Ordered
--- NOTE | 2024-09-04 13:22 | P.PNGS_ITS ---
Subjective Subjective Date of Service: 09/04/24 Interval history: Patient confused/minimally communicative secondary to dementia. Nurse states that she was given enemas with minimal results. Patient on liquid diet complaining of nausea but no vomiting. Physical Exam 2 Vital Signs: Vital Signs: Last Vital Signs Temp 97.9 F 09/04/24 12:00 Pulse 96 09/04/24 12:00 Resp 16 09/04/24 12:00 BP 125/75 09/04/24 12:00 Pulse Ox 94 09/04/24 12:00 O2 Del Method Room Air 09/04/24 12:00 O2 Flow Rate 2 08/29/24 02:00 BMI result Body Mass Index 33.2 GI: Other: Abdomen is corpulent, soft, benign. Objective Data Active Medications Amoxicillin/Clavulanate Potassium (Amoxicillin/Potassium Clav 500 Mg Tablet) 500 mg PO Q24H [facility] Last Admin: 09/04/24 11:14 Dose: 500 mg Documented By: GISSELL Aspirin (Aspirin Enteric Coated 81 Mg Tablet.Dr) 81 mg PO DAILY [facility] Last Admin: 09/04/24 07:55 Dose: 81 mg Documented By: GISSELL Bupropion HCl (Bupropion Hcl Xl 150 Mg Tab.Er.24h) 150 mg PO DAILY [facility] Last Admin: 09/04/24 07:56 Dose: 150 mg Documented By: GISSELL Docusate Sodium (Docusate Sodium 100 Mg Capsule) 100 mg PO BEDTIME [facility] Last Admin: 09/03/24 20:48 Dose: 100 mg Documented By: EVERETTE Famotidine (Famotidine 20 Mg Tablet) 20 mg PO BID [facility] Last Admin: 09/04/24 07:56 Dose: 20 mg Documented By: GISSELL Heparin Sodium (Porcine) (Heparin Sodium,Porcine 5,000 Unit/Ml Vial) 5,000 unit SUBCUT Q12H [facility] Last Admin: 09/04/24 04:27 Dose: 5,000 unit Documented By: EVERETTE Midodrine (Midodrine Hcl 10 Mg Tablet) 10 mg PO MoWeFr@0900 [facility] Last Admin: 09/02/24 13:31 Dose: Not Given Documented By: LUIGI Non-Admin Reason: nephrology order to hold Ondansetron HCl (Ondansetron Hcl 4 Mg/2 Ml Vial) 4 mg IVPUSH Q8H PRN PRN Reason: Nausea and Vomiting Last Admin: 09/03/24 16:50 Dose: 4 mg Documented By: GISSELL Polyethylene Glycol (Polyethylene Glycol 3350 17 Gm Powd.Pack) 17 gm PO DAILY [facility] Last Admin: 09/04/24 07:55 Dose: 17 gm Documented By: GISSELL Sevelamer Carbonate (Sevelamer Carbonate Tablet 800 Mg Tablet) 800 mg PO TIDAC [facility] Last Admin: 09/04/24 11:14 Dose: 800 mg Documented By: GISSELL Venlafaxine HCl (Venlafaxine Hcl Er 150 Mg Cap.Er.24h) 150 mg PO DAILY [facility] Last Admin: 09/04/24 07:55 Dose: 150 mg Documented By: GISSELL Labs 09/03/24 13:43 09/03/24 10:03 Labs: Laboratory Results - last 24 hr 09/03/24 09/03/24 09/03/24 11:00 13:43 13:43 MCV Cancelled 95.7 MCH Cancelled MCHC RDW Plt Count MPV Immature Gran % (Auto) Neut % (Auto) Lymph % (Auto) [place] % (Auto) Eos % (Auto) Baso % (Auto) Lymph # (Auto) [place] # (Auto) Eos # (Auto) Baso # (Auto) Abs Immat Gran (auto) Absolute Neuts (auto) Absolute Nucleated RBC Nucleated RBC % (auto) Smear Tech's Comments VBG pH VBG pCO2 VBG pO2 VBG HCO3 VBG O2 Saturation VBG Base Excess Lactic Acid Lactic Acid F/U @ 2Hr Lactic Acid F/U @ 4Hr Total Creatine Kinase Urine Color Cancelled Urine Appearance Cancelled Urine pH Cancelled Ur Specific [place] Cancelled Urine Protein Cancelled Urine Glucose (UA) Cancelled Urine Ketones Cancelled Urine Blood Cancelled Urine Nitrite Cancelled Ur Leukocyte Esterase Cancelled Urine RBC Urine WBC Ur Squamous Epith Cells Urine Bacteria Hyaline Casts 09/03/24 09/03/24 09/03/24 13:43 13:43 13:43 MCV MCH 31.5 MCHC Cancelled 32.9 RDW Cancelled 15.5 Plt Count Cancelled MPV Immature Gran % (Auto) Neut % (Auto) Lymph % (Auto) [place] % (Auto) Eos % (Auto) Baso % (Auto) Lymph # (Auto) [place] # (Auto) Eos # (Auto) Baso # (Auto) Abs Immat Gran (auto) Absolute Neuts (auto) Absolute Nucleated RBC Nucleated RBC % (auto) Smear Tech's Comments VBG pH VBG pCO2 VBG pO2 VBG HCO3 VBG O2 Saturation VBG Base Excess Lactic Acid Lactic Acid F/U @ 2Hr Lactic Acid F/U @ 4Hr Total Creatine Kinase Urine Color Urine Appearance Urine pH Ur Specific [place] Urine Protein Urine Glucose (UA) Urine Ketones Urine Blood Urine Nitrite Ur Leukocyte Esterase Urine RBC Urine WBC Ur Squamous Epith Cells Urine Bacteria Hyaline Casts 09/03/24 09/03/24 09/03/24 13:43 13:43 13:43 MCV MCH MCHC RDW Plt Count 280 D MPV Cancelled 10.6 Immature Gran % (Auto) 0.5 H Neut % (Auto) 81.0 H Lymph % (Auto) 8.9 L [place] % (Auto) 9.2 Eos % (Auto) 0.1 Baso % (Auto) 0.3 Lymph # (Auto) 1.7 [place] # (Auto) 1.8 H Eos # (Auto) 0.0 Baso # (Auto) 0.1 Abs Immat Gran (auto) 0.10 H Absolute Neuts (auto) 15.6 H Absolute Nucleated RBC Cancelled 0.070 H Nucleated RBC % (auto) Cancelled Smear Tech's Comments VBG pH VBG pCO2 VBG pO2 VBG HCO3 VBG O2 Saturation VBG Base Excess Lactic Acid Lactic Acid F/U @ 2Hr Lactic Acid F/U @ 4Hr Total Creatine Kinase Urine Color Urine Appearance Urine pH Ur Specific [place] Urine Protein Urine Glucose (UA) Urine Ketones Urine Blood Urine Nitrite Ur Leukocyte Esterase Urine RBC Urine WBC Ur Squamous Epith Cells Urine Bacteria Hyaline Casts 09/03/24 09/03/24 09/03/24 13:43 13:48 15:45 MCV MCH MCHC RDW Plt Count MPV Immature Gran % (Auto) Neut % (Auto) Lymph % (Auto) [place] % (Auto) Eos % (Auto) Baso % (Auto) Lymph # (Auto) [place] # (Auto) Eos # (Auto) Baso # (Auto) Abs Immat Gran (auto) Absolute Neuts (auto) Absolute Nucleated RBC Nucleated RBC % (auto) 0.4 H Smear Tech's Comments VERIFIED VBG pH 7.53 H VBG pCO2 25 VBG pO2 70 VBG HCO3 20 L VBG O2 Saturation 94.0 VBG Base Excess 0.1 Lactic Acid 2.5 H* Lactic Acid F/U @ 2Hr Lactic Acid F/U @ 4Hr Total Creatine Kinase 367 H Urine Color Dark Yellow Urine Appearance Turbid Urine pH 5.5 Ur Specific [place] >= 1.030 H Urine Protein 100 (2+) H Urine Glucose (UA) 100 H Urine Ketones Trace Urine Blood Large (3+) H Urine Nitrite Negative Ur Leukocyte Esterase Moderate (2+) H Urine RBC >20 H Urine WBC 21-50 H Ur Squamous Epith Cells >20 Urine Bacteria Trace Hyaline Casts >20 09/03/24 09/03/24 16:54 19:29 MCV MCH MCHC RDW Plt Count MPV Immature Gran % (Auto) Neut % (Auto) Lymph % (Auto) [place] % (Auto) Eos % (Auto) Baso % (Auto) Lymph # (Auto) [place] # (Auto) Eos # (Auto) Baso # (Auto) Abs Immat Gran (auto) Absolute Neuts (auto) Absolute Nucleated RBC Nucleated RBC % (auto) Smear Tech's Comments VBG pH VBG pCO2 VBG pO2 VBG HCO3 VBG O2 Saturation VBG Base Excess Lactic Acid Lactic Acid F/U @ 2Hr 2.6 H* Lactic Acid F/U @ 4Hr 2.9 H* Total Creatine Kinase Urine Color Urine Appearance Urine pH Ur Specific [place] Urine Protein Urine Glucose (UA) Urine Ketones Urine Blood Urine Nitrite Ur Leukocyte Esterase Urine RBC Urine WBC Ur Squamous Epith Cells Urine Bacteria Hyaline Casts Microbiology Microbiology Results: Microbiology 09/03/24 Unknown Urine Culture - Preliminary Urine clean catch - Clean Catch Midstream No growth to date. Procedures Date of Service Date of Service: 09/04/24 Progress Note: A&P Assessment and plan (1) Ileus due to infection: Status: Acute (2) Dementia: Status: Acute (3) Acute metabolic encephalopathy: Status: Acute Plan Continue current plan; clear liquids until having formalin bowel movements, general restorative measures, if possible out of bed, purgatives and stool softeners Time Spent With Patient Time: Total time managing care of this patient today ____ minutes. Quality Stroke Does the patient have a stroke diagnosis?: No VTE Prior VTE?: No VTE Risk Level:: Medical - moderate - high VTE Device Contraindication: N/A - Device Ordered VTE Drug Contraindication: N/A - Med Ordered
[2024-09-04 15:26] VITALS: BP 151/61; PULSE 98; RESP 16; TEMP 36.2; O2SAT 98
[2024-09-04 15:26] LABS: Basophils Percent Auto 0.2 % (0-2); Eosinophils Absolute Auto 0.1 X10*3/uL (0.0-0.4); Eosinophils Percent Auto 0.5 % (0-4); Hematocrit 38.4 % (37.0-47.0); Hemoglobin 12.4 g/dl (12.0-16.0); Imm Gran Abs Auto 0.13 X10*3/uL (0.00-0.03); Imm Gran Pct Auto 0.7 % (0.0-0.4); Lymphocytes Absolute Auto 1.6 X10*3/uL (1.2-4.9); Lymphocytes Percent Auto 8.4 % (20-40); MANUAL DIFF FLAG SCAN; Mean Corpuscular HGB Conc 32.3 g/dl (31.0-35.0); Mean Corpuscular Hemoglobin 31.4 pg (27.0-33.0); Mean Corpuscular Volume 97.2 fL (80.0-98.0); Mean Platelet Volume 10.8 fL (9.4-12.3); Monocytes Absolute Auto 1.5 X10*3/uL (0.1-1.2); Monocytes Percent Auto 8.1 % (2-11); NRBC Pct Auto 0.9 /100WBC (0.0-0.2); Neutrophils Absolute Auto 15.2 x10*3/uL (2.0-8.3); Neutrophils Percent Auto 82.1 % (45-73); PLT CLUMP 1; Red Blood Count 3.95 X10*6/uL (4.20-5.50); Red Cell Distribution Width 15.3 % (11.0-16.0); SCAN SMEAR FLAG 1
[2024-09-04 15:35] LABS: Lactic Acid 1.7 mmol/L (0.5-2.0)
[2024-09-04 15:55] LABS: Platelet Count 230 X10*3/uL (160-400); SLIDE REVIEW VERIFIED; White Blood Count 18.5 X10*3/uL (4.8-10.8)
[2024-09-04 15:59] LABS: Anion Gap 23 (12-20); Blood Urea Nitrogen 41 mg/dL (9-16); Calcium 10.2 mg/dL (8.4-10.2); Carbon Dioxide 15 mmol/L (22-29); Chloride 106 mmol/L (96-108); Estimated Glomerular Filt Rate 6; Glucose Random 118 mg/dL (60-115); Potassium 3.4 mmol/L (3.3-5.1); Sodium 141 mmol/L (135-145)
[2024-09-04] MEDS: Sevelamer Carbonate Powder 800 MG POWD.PACK PO (16:21)
[2024-09-04 20:00] VITALS: BP 129/61; PULSE 95; RESP 20; TEMP 36.2; O2SAT 99
[2024-09-04] MEDS: Acetaminophen 325 MG TABLET 650 MG PO (21:33)
[2024-09-04] MEDS: Docusate Sodium 100 MG CAPSULE PO (21:33)
[2024-09-05] VITALS: BP 145/65; PULSE 73; RESP 20; TEMP 36.6; O2SAT 94
[2024-09-05 03:48] VITALS: BP 131/71; PULSE 97; RESP 20; TEMP 36.8; O2SAT 98
[2024-09-05] MEDS: Heparin Sodium,Porcine 5,000 UNIT/ML VIAL 5000 UNIT SUBCUT ×2 (04:04→17:39)
[2024-09-05 06:00] VITALS: BMI 30.1
[2024-09-05 06:11] LABS: MANUAL DIFF FLAG NO
[2024-09-05 06:22] LABS: Basophils Percent Auto 0.2 % (0-2); Eosinophils Absolute Auto 0.3 X10*3/uL (0.0-0.4); Eosinophils Percent Auto 2.1 % (0-4); Hematocrit 38.6 % (37.0-47.0); Hemoglobin 12.5 g/dl (12.0-16.0); Imm Gran Abs Auto 0.06 X10*3/uL (0.00-0.03); Imm Gran Pct Auto 0.4 % (0.0-0.4); Lymphocytes Absolute Auto 1.5 X10*3/uL (1.2-4.9); Lymphocytes Percent Auto 9.7 % (20-40); Mean Corpuscular HGB Conc 32.4 g/dl (31.0-35.0); Mean Corpuscular Volume 98.7 fL (80.0-98.0); Mean Platelet Volume 10.4 fL (9.4-12.3); Monocytes Absolute Auto 1.2 X10*3/uL (0.1-1.2); Monocytes Percent Auto 7.6 % (2-11); NRBC Pct Auto 0.6 /100WBC (0.0-0.2); Neutrophils Absolute Auto 12.4 x10*3/uL (2.0-8.3); Platelet Count 270 X10*3/uL (160-400); Red Blood Count 3.91 X10*6/uL (4.20-5.50); Red Cell Distribution Width 15.6 % (11.0-16.0); White Blood Count 15.5 X10*3/uL (4.8-10.8)
[2024-09-05 06:48] LABS: Alanine Aminotransferase 29 U/L (0-31); Albumin Level 3.1 g/dL (3.5-5.0); Alkaline Phosphatase 104 U/L (39-117); Anion Gap 20 (12-20); Aspartate Amino Transferase 25 U/L (5-31); Bilirubin Direct 0.2 mg/dL (0.0-0.5); Bilirubin Total 0.6 mg/dL (0.0-1.0); Blood Urea Nitrogen 42 mg/dL (9-16); Calcium 9.9 mg/dL (8.4-10.2); Carbon Dioxide 19 mmol/L (22-29); Chloride 107 mmol/L (96-108); Creatinine Clr Calc Pharmacy 5.4; Estimated Glomerular Filt Rate 5; Glucose Random 84 mg/dL (60-115); Potassium 4.2 mmol/L (3.3-5.1); Sodium 142 mmol/L (135-145)
[2024-09-05 08:00] VITALS: BP 180/70; PULSE 92; RESP 16; TEMP 36.1; O2SAT 99
[2024-09-05] MEDS: Aspirin Enteric Coated 81 MG TABLET.DR PO (09:10)
[2024-09-05] MEDS: Famotidine 20 MG TABLET PO ×2 (09:10→21:26)
[2024-09-05] MEDS: buPROPion HCl XL 150 MG TAB.ER.24H PO (09:10)
[2024-09-05] MEDS: Venlafaxine HCl ER 150 MG CAP.ER.24H PO (09:10)
[2024-09-05] MEDS: Sodium Bicarbonate 650 MG TABLET PO ×2 (09:10→21:26)
[2024-09-05] MEDS: Midodrine HCl 10 MG TABLET PO (09:10)
[2024-09-05] MEDS: Amoxicillin/Potassium Clav 500 MG TABLET PO (09:11)
[2024-09-05] MEDS: Sevelamer Carbonate Powder 800 MG POWD.PACK PO (09:11)
[2024-09-05] MEDS: polyethylene glycoL 3350 17 GM POWD.PACK PO (09:11)
--- NOTE | 2024-09-05 10:10 | PM.PNNEP ---
Subjective Subjective Date of Service: 09/05/24 Interval history: 88-year-old lady with underlying dementia, end-stage renal disease hemodialysis admitted on 08/28/2024 with septic shock requiring pressor support further complicated by septic encephalopathy with possible aspiration. She gets HD at facility M,W,F, did not miss any sessions. today she is alert, and responds to questions though is disoriented to time and situation (does have baseline dementia). Creatinine 7.77 today, trending up phosphorous is low at 1.9. calcium and other electrolytes are normal. patient remains oliguric (caraballo), no urine output recorded for last 24 hours. patient states she doing ok today, denies concerns. Physical Exam Vital Signs: Vital Signs: Last Vital Signs Temp 97 F 09/05/24 08:00 Pulse 92 09/05/24 08:00 Resp 16 09/05/24 08:00 BP 180/70 H 09/05/24 08:00 Pulse Ox 99 09/05/24 08:00 O2 Del Method Room Air 09/05/24 08:00 O2 Flow Rate 2 08/29/24 02:00 BMI result Body Mass Index 30.1 Const: General: comfortable, no acute distress and confusion (baseline dementia) Orientation/consciousness: oriented to person, oriented to place and confusion (baseline dementia) Neck: Neck: Yes no JVD Resp: Effort & Inspection: able to speak in complete sentences Auscultation: clear to auscultation bilaterally Cardio: Jugular venous distension: no JVD Rate: regular rate Rhythm: regular rhythm Heart sounds: S1 normal heart sound present and S2 normal heart sound present GI: Palpation (GI): Soft to palpation Rectal Exam - Female: No tenderness : Other: caraballo in place, oliguric General: Yes no CVA tenderness Back/Spine/Pelvis: Back: no CVA tenderness Skin: Rashes: no rashes Neuro: Other: No tremors General: oriented to person, oriented to place and confusion (baseline dementia) Extrem: General: Yes normal to inspection, No edema and No pedal edema Objective Data Labs 09/05/24 05:44 09/05/24 05:44 Labs: Laboratory Results - last 24 hr 09/04/24 09/04/24 09/05/24 15:14 15:15 05:44 WBC 18.5 H 15.5 H RBC 3.95 L 3.91 L Hgb 12.4 12.5 Hct 38.4 38.6 MCV 97.2 98.7 H MCH 31.4 32.0 MCHC 32.3 32.4 RDW 15.3 15.6 Plt Count 230 270 MPV 10.8 10.4 Immature Gran % (Auto) 0.7 H 0.4 Neut % (Auto) 82.1 H 80.0 H Lymph % (Auto) 8.4 L 9.7 L [place] % (Auto) 8.1 7.6 Eos % (Auto) 0.5 2.1 Baso % (Auto) 0.2 0.2 Lymph # (Auto) 1.6 1.5 [place] # (Auto) 1.5 H 1.2 Eos # (Auto) 0.1 0.3 Baso # (Auto) 0.0 0.0 Abs Immat Gran (auto) 0.13 H 0.06 H Absolute Neuts (auto) 15.2 H 12.4 H Absolute Nucleated RBC 0.160 H 0.100 H Nucleated RBC % (auto) 0.9 H 0.6 H Smear Tech's Comments VERIFIED Sodium 141 142 Potassium 3.4 4.2 D Chloride 106 107 Carbon Dioxide 15 L 19 L Anion Gap 23 H 20 BUN 41 H 42 H Creatinine 6.92 H* 7.77 H* Estim Creat Clear Calc 6.0 5.4 Estimated GFR 6 5 Random Glucose 118 H 84 Lactic Acid 1.7 Calcium 10.2 D 9.9 Total Bilirubin 0.6 Direct Bilirubin 0.2 AST 25 ALT 29 Alkaline Phosphatase 104 Total Protein 6.0 L Albumin 3.1 L Microbiology Microbiology Results: Microbiology 09/03/24 Unknown Urine clean catch - Clean Catch Midstream Urine Culture - Final No growth. 09/03/24 15:11 Blood - Venous Blood Culture - Preliminary No growth after 24 hours. 09/03/24 15:11 Blood - Venous Blood Culture - Preliminary No growth after 24 hours. 08/28/24 21:26 Blood - Venous Blood Culture - Final No growth after 5 days. 08/28/24 21:26 Blood - Venous Blood Culture - Final No growth after 5 days. 08/27/24 23:39 Blood - Venous Blood Culture - Final No growth after 5 days. 08/27/24 23:39 Blood - Venous Blood Culture - Final Coag negative Staphylococcus 08/28/24 Unknown Urine Catheterized - [place] Catheter Urine Culture - Final Procedures Date of Service Date of Service: 09/05/24 Assessment & Plan Assessment and plan (1) Acute metabolic encephalopathy: Status: Acute (2) Hypotension: Status: Acute (3) End stage renal disease: Status: Acute (4) Anemia in chronic kidney disease: Status: Acute Plan pt with ESRD MWF, here with AMS and requiring vasopressor support for hypotension, treated for UTI, off pressors and seems to be at baseline mental status (dementia). midodrine 10mg Thursday, Thursday, Thursday prior to HD sessions due to hypotension last session on 09/02 recommend echocardiogram to workup new hypotension will also check cortisol for adrenal insufficiency Has AV graft on left upper extremity, no erythema, functioning well during HD today. H&H 13.6 & 41.4, no indication for epogen at present calcium normal at 9.9 phosphorous low, ok to continue to monitor volume status remains euvolemic Discussed with Time Spent With Patient Time: Total time managing care of this patient today ____ minutes. Progress Note: Quality Stroke Does the patient have a stroke diagnosis?: No
--- NOTE | 2024-09-05 10:36 | W.PM.DNNEP ---
Subjective Subjective Date of Service: 09/05/24 This patient was seen during dialysis. Interval history: 88-year-old lady with underlying dementia, end-stage renal disease on hemodialysis admitted on 08/28/2024 with septic shock requiring pressor support further complicated by septic encephalopathy with possible aspiration. She gets HD at facility M,W,F, did not miss any sessions prior to admission. HD session on 09/02 pt developed hypotension, midodrine 10mg PO prior to HD ,,f added to regimen echocardiogram was done to evaluate hypotension- hyperdynamic LV function otherwise unremarkable today she is alert, and responds to questions though is disoriented to time and situation (does have baseline dementia). Creatinine 7.77 today, GFR 5 phosphorous is low at 1.9. calcium and other electrolytes are normal. patient remains oliguric (caraballo), no urine output recorded for last 24 hours. patient states she doing ok today, denies concerns. Physical Exam Vital Signs: Vital Signs: Last Vital Signs Temp 97 F 09/05/24 08:00 Pulse 92 09/05/24 08:00 Resp 16 09/05/24 08:00 BP 180/70 H 09/05/24 08:00 Pulse Ox 99 09/05/24 08:00 O2 Del Method Room Air 09/05/24 08:00 O2 Flow Rate 2 08/29/24 02:00 BMI result Body Mass Index 30.1 Const: General: comfortable, no acute distress and confusion (baseline dementia) Orientation/consciousness: oriented to person, oriented to place and confusion (baseline dementia) Neck: Neck: Yes no JVD Resp: Effort & Inspection: able to speak in complete sentences Auscultation: clear to auscultation bilaterally Cardio: Jugular venous distension: no JVD Rate: regular rate Rhythm: regular rhythm Heart sounds: S1 normal heart sound present and S2 normal heart sound present GI: Palpation (GI): Soft to palpation Rectal Exam - Female: No tenderness : Other: caraballo in place, oliguric General: Yes no CVA tenderness Back/Spine/Pelvis: Back: no CVA tenderness Skin: Rashes: no rashes Neuro: Other: No tremors General: oriented to person, oriented to place and confusion (baseline dementia) Extrem: General: Yes normal to inspection, No edema and No pedal edema Assessment & Plan Assessment and plan (1) Acute metabolic encephalopathy: Status: Acute (2) Hypotension: Status: Acute (3) Anemia in chronic kidney disease: Status: Acute (4) ESRD (end stage renal disease) on dialysis: Status: Acute Plan pt with ESRD MWF, here with AMS and requiring vasopressor support for hypotension, treated for UTI, off pressors and seems to be at baseline mental status (dementia). midodrine 10mg Thursday, Thursday, Thursday prior to HD sessions due to hypotension last session on 09/02 echocardiogram on 09/02 showed hyperdynamic LV function, otherwise fairly unremarkable pt maintaining her pressures today during HD, remains alert Has AV graft on left upper extremity, no erythema, functioning well during HD today. H&H normal, no indication for epogen at present calcium normal at 9.9 phosphorous low, ok to continue to monitor volume status remains euvolemic She is ok for discharge from renal standpoint with plan to continue outpatient HD and follow up with her administrative receptionist Discussed with Dr Dobbins Time Spent With Patient Time: Total time managing care of this patient today ____ minutes. Procedures Date of Service Date of Service: 09/05/24
--- NOTE | 2024-09-05 10:47 | PM.PNGS ---
Subjective Subjective Date of Service: 09/05/24 Interval history: Having bowel movements and tolerating small amount of solid food per chart. Physical Exam Vital Signs: Vital Signs: Last Vital Signs Temp 97 F 09/05/24 08:00 Pulse 92 09/05/24 08:00 Resp 16 09/05/24 08:00 BP 180/70 H 09/05/24 08:00 Pulse Ox 99 09/05/24 08:00 O2 Del Method Room Air 09/05/24 08:00 O2 Flow Rate 2 08/29/24 02:00 BMI result Body Mass Index 30.1 Const: General: comfortable, no acute distress and alert GI: Inspection: Yes distended (very mild) Palpation (GI): Soft to palpation, nontender and no guarding Neuro: General: moves all extremities Objective Data Active Medications Acetaminophen (Acetaminophen 325 Mg Tablet) 650 mg PO Q6H PRN PRN Reason: Pain, Mild (Pain Scale 1-3) Last Admin: 09/04/24 21:33 Dose: 650 mg Documented By: EVERETTE Amoxicillin/Clavulanate Potassium (Amoxicillin/Potassium Clav 500 Mg Tablet) 500 mg PO Q24H [facility] Last Admin: 09/05/24 09:11 Dose: 500 mg Documented By: ALEX Aspirin (Aspirin Enteric Coated 81 Mg Tablet.Dr) 81 mg PO DAILY [facility] Last Admin: 09/05/24 09:10 Dose: 81 mg Documented By: ALEX Bupropion HCl (Bupropion Hcl Xl 150 Mg Tab.Er.24h) 150 mg PO DAILY [facility] Last Admin: 09/05/24 09:10 Dose: 150 mg Documented By: ALEX Docusate Sodium (Docusate Sodium 100 Mg Capsule) 100 mg PO BEDTIME [facility] Last Admin: 09/04/24 21:33 Dose: 100 mg Documented By: EVERETTE Famotidine (Famotidine 20 Mg Tablet) 20 mg PO BID [facility] Last Admin: 09/05/24 09:10 Dose: 20 mg Documented By: ALEX Heparin Sodium (Porcine) (Heparin Sodium,Porcine 5,000 Unit/Ml Vial) 5,000 unit SUBCUT Q12H [facility] Last Admin: 09/05/24 04:04 Dose: 5,000 unit Documented By: EVERETTE Midodrine (Midodrine Hcl 10 Mg Tablet) 10 mg PO MoWeFr@0900 [facility] Last Admin: 09/05/24 09:10 Dose: 10 mg Documented By: ALEX Ondansetron HCl (Ondansetron Hcl 4 Mg/2 Ml Vial) 4 mg IVPUSH Q8H PRN PRN Reason: Nausea and Vomiting Last Admin: 09/03/24 16:50 Dose: 4 mg Documented By: RAFAELA-RIVLA Polyethylene Glycol (Polyethylene Glycol 3350 17 Gm Powd.Pack) 17 gm PO DAILY [facility] Last Admin: 09/05/24 09:11 Dose: 17 gm Documented By: ALEX Sevelamer Carbonate (Sevelamer Carbonate Powder 800 Mg Powd.Pack) 800 mg PO TIDWM [facility] Last Admin: 09/05/24 09:11 Dose: 800 mg Documented By: ALEX Sodium Bicarbonate (Sodium Bicarbonate 650 Mg Tablet) 650 mg PO BID [facility] Last Admin: 09/05/24 09:10 Dose: 650 mg Documented By: ALEX Venlafaxine HCl (Venlafaxine Hcl Er 150 Mg Cap.Er.24h) 150 mg PO DAILY [facility] Last Admin: 09/05/24 09:10 Dose: 150 mg Documented By: ALEX Labs 09/05/24 05:44 09/05/24 05:44 Labs: Laboratory Results - last 24 hr 09/04/24 09/04/24 09/05/24 15:14 15:15 05:44 MCV 97.2 98.7 H MCH 31.4 32.0 MCHC 32.3 32.4 RDW 15.3 15.6 Plt Count 230 270 MPV 10.8 10.4 Immature Gran % (Auto) 0.7 H 0.4 Neut % (Auto) 82.1 H 80.0 H Lymph % (Auto) 8.4 L 9.7 L [place] % (Auto) 8.1 7.6 Eos % (Auto) 0.5 2.1 Baso % (Auto) 0.2 0.2 Lymph # (Auto) 1.6 1.5 [place] # (Auto) 1.5 H 1.2 Eos # (Auto) 0.1 0.3 Baso # (Auto) 0.0 0.0 Abs Immat Gran (auto) 0.13 H 0.06 H Absolute Neuts (auto) 15.2 H 12.4 H Absolute Nucleated RBC 0.160 H 0.100 H Nucleated RBC % (auto) 0.9 H 0.6 H Smear Tech's Comments VERIFIED Anion Gap 23 H 20 Estim Creat Clear Calc 6.0 5.4 Estimated GFR 6 5 Random Glucose 118 H 84 Lactic Acid 1.7 Calcium 10.2 D 9.9 Total Bilirubin 0.6 Direct Bilirubin 0.2 AST 25 ALT 29 Alkaline Phosphatase 104 Total Protein 6.0 L Albumin 3.1 L Microbiology Microbiology Results: Microbiology 09/03/24 Unknown Urine Culture - Final Urine clean catch - Clean Catch Midstream No growth. 09/03/24 15:11 Blood Culture - Preliminary Blood - Venous No growth after 24 hours. 09/03/24 15:11 Blood Culture - Preliminary Blood - Venous No growth after 24 hours. Procedures Date of Service Date of Service: 09/05/24 Progress Note: A&P Assessment and plan (1) Ileus due to infection: Status: Acute Plan Appears to be resolved. Tolerating solid diet, having bowel movements. Abd remains benign, softly distended, no significant tenderness. No acute surgical issues, GI function returned. Will sign off. Time Spent With Patient Time: Total time managing care of this patient today ____ minutes. Quality Stroke Does the patient have a stroke diagnosis?: No VTE Prior VTE?: No VTE Risk Level:: Medical - moderate - high VTE Device Contraindication: N/A - Device Ordered VTE Drug Contraindication: N/A - Med Ordered
--- NOTE | 2024-09-05 11:03 | MHC.CM.PN ---
Per MD rounds no discharge today. The Provider intends to discuss [facility]/Hospice with family. She will notify CM if a referral is needed for a hospice informational consult. DP return to [facility] for LTC vs return with additional hospice services. Patient will transport via BLS.
--- NOTE | 2024-09-05 11:14 | MHC.CLN ---
F/U PO INTAKE REMAINS 25% CONSISTENTLY DIET RX: PUREED-APPROPRIATE PT RECEIVING MAGIC CUP TID PROVIDES 870KCALS, 27G PROTEIN CONTINUE TO MONITOR PO INTAKE AND ENCOURAGE SUPPLEMENT
--- NOTE | 2024-09-05 11:33 | HO.PM.IMPN ---
Subjective Subjective Date of Service: 09/05/24 Interval History: seen and examined this morning follow up for encephalopathy, UTI more awake and alert this morning, more interactive no specific complaints, but limited ROS due to dementia Physical Exam Vital Signs: Vital Signs: Last Vital Signs Temp 97 F 09/05/24 08:00 Pulse 92 09/05/24 08:00 Resp 16 09/05/24 08:00 BP 180/70 H 09/05/24 08:00 Pulse Ox 99 09/05/24 08:00 O2 Del Method Room Air 09/05/24 08:00 O2 Flow Rate 2 08/29/24 02:00 BMI result Body Mass Index 30.1 Appearing in no acute distress lung sounds are clear to auscultation heart regular rate rhythm, clear S1, S2 positive bowel sounds, abdomen is soft, nontender neuro patient is alert, confused Objective Data Active Medications Acetaminophen (Acetaminophen 325 Mg Tablet) 650 mg PO Q6H PRN PRN Reason: Pain, Mild (Pain Scale 1-3) Last Admin: 09/04/24 21:33 Dose: 650 mg Documented By: EVERETTE Amoxicillin/Clavulanate Potassium (Amoxicillin/Potassium Clav 500 Mg Tablet) 500 mg PO Q24H [facility] Last Admin: 09/05/24 09:11 Dose: 500 mg Documented By: ALEX Aspirin (Aspirin Enteric Coated 81 Mg Tablet.Dr) 81 mg PO DAILY [facility] Last Admin: 09/05/24 09:10 Dose: 81 mg Documented By: ALEX Bupropion HCl (Bupropion Hcl Xl 150 Mg Tab.Er.24h) 150 mg PO DAILY [facility] Last Admin: 09/05/24 09:10 Dose: 150 mg Documented By: ALEX Docusate Sodium (Docusate Sodium 100 Mg Capsule) 100 mg PO BEDTIME [facility] Last Admin: 09/04/24 21:33 Dose: 100 mg Documented By: EVERETTE Famotidine (Famotidine 20 Mg Tablet) 20 mg PO BID [facility] Last Admin: 09/05/24 09:10 Dose: 20 mg Documented By: ALEX Heparin Sodium (Porcine) (Heparin Sodium,Porcine 5,000 Unit/Ml Vial) 5,000 unit SUBCUT Q12H [facility] Last Admin: 09/05/24 04:04 Dose: 5,000 unit Documented By: EVERETTE Midodrine (Midodrine Hcl 10 Mg Tablet) 10 mg PO MoWeFr@0900 [facility] Last Admin: 09/05/24 09:10 Dose: 10 mg Documented By: ALEX Ondansetron HCl (Ondansetron Hcl 4 Mg/2 Ml Vial) 4 mg IVPUSH Q8H PRN PRN Reason: Nausea and Vomiting Last Admin: 09/03/24 16:50 Dose: 4 mg Documented By: RAFAELA-RIVLA Polyethylene Glycol (Polyethylene Glycol 3350 17 Gm Powd.Pack) 17 gm PO DAILY [facility] Last Admin: 09/05/24 09:11 Dose: 17 gm Documented By: ALEX Sevelamer Carbonate (Sevelamer Carbonate Powder 800 Mg Powd.Pack) 800 mg PO TIDWM [facility] Last Admin: 09/05/24 09:11 Dose: 800 mg Documented By: ALEX Sodium Bicarbonate (Sodium Bicarbonate 650 Mg Tablet) 650 mg PO BID [facility] Last Admin: 09/05/24 09:10 Dose: 650 mg Documented By: ALEX Venlafaxine HCl (Venlafaxine Hcl Er 150 Mg Cap.Er.24h) 150 mg PO DAILY [facility] Last Admin: 09/05/24 09:10 Dose: 150 mg Documented By: ALEX Labs 09/05/24 05:44 09/05/24 05:44 Labs: Laboratory Results - last 24 hr 09/04/24 09/04/24 09/05/24 15:14 15:15 05:44 MCV 97.2 98.7 H MCH 31.4 32.0 MCHC 32.3 32.4 RDW 15.3 15.6 Plt Count 230 270 MPV 10.8 10.4 Immature Gran % (Auto) 0.7 H 0.4 Neut % (Auto) 82.1 H 80.0 H Lymph % (Auto) 8.4 L 9.7 L [place] % (Auto) 8.1 7.6 Eos % (Auto) 0.5 2.1 Baso % (Auto) 0.2 0.2 Lymph # (Auto) 1.6 1.5 [place] # (Auto) 1.5 H 1.2 Eos # (Auto) 0.1 0.3 Baso # (Auto) 0.0 0.0 Abs Immat Gran (auto) 0.13 H 0.06 H Absolute Neuts (auto) 15.2 H 12.4 H Absolute Nucleated RBC 0.160 H 0.100 H Nucleated RBC % (auto) 0.9 H 0.6 H Smear Tech's Comments VERIFIED Anion Gap 23 H 20 Estim Creat Clear Calc 6.0 5.4 Estimated GFR 6 5 Random Glucose 118 H 84 Lactic Acid 1.7 Calcium 10.2 D 9.9 Total Bilirubin 0.6 Direct Bilirubin 0.2 AST 25 ALT 29 Alkaline Phosphatase 104 Total Protein 6.0 L Albumin 3.1 L Microbiology Microbiology Results: Microbiology 09/03/24 Unknown Urine Culture - Final Urine clean catch - Clean Catch Midstream No growth. 09/03/24 15:11 Blood Culture - Preliminary Blood - Venous No growth after 24 hours. 09/03/24 15:11 Blood Culture - Preliminary Blood - Venous No growth after 24 hours. Assessment and Plan (1) Ileus due to infection: Status: Acute (2) UTI (urinary tract infection): Status: Acute (3) End stage renal disease: Status: Acute Plan 88-year-old female with history of unspecified dementia, ESRD on dialysis MWF, hyperlipidemia, hypertension, COPD, hyperlipidemia, unspecified mood disorder presented to the emergency room for altered mental status and lethargy admitted to the ICU for management of hypotension/ sepsis due to UTI requiring pressor support. Maintained on pressors; over the next 48 hours weaned off pressors and was able to be transferred to telemetry 08/30 Admitted to ICU with Septic shock due to probable source urine cultures negative (received abx before culture obtained). S/p vasopressor support in the ICU. Blood pressure stable but drops during dialysis 09/03 developed increasing WBC count, tachycardia and elevated LA - repeat infectious work up obtained and no additional source of infection identified repeat UCx and blood cx also negative abd ct showing ileus and stool ball Tachycardia and lactic acidosis likely secondary to hypovolemia rather than sepsis monitor Phlebotomy>difficult stick Acute UTI active urinary sediment in ER initially. despite negative cultures Given urine collected after abx and presentation would complete course of abx po augmentin Ileus Seen by General surgery, plan for conservative management Diet decreased to clear liquids, advance slowly Constipation Has been having overflow diarrhea but CT scan showed stool ball on imaging Some able to be removed by enema Continue bowel regimen Delirium in known backdrop of dementia brain ct negative Increasing creatinine and slight up trend and calcium not likely cause of lethargy per Nephrology Ammonia slightly elevated, but having BMs, no asterixis tachycardia likely due to propranolol being on hold. no fever Aspiration precautions End-stage renal disease on hemodialysis MWF schedule nephrology following midodrine added on dialysis days to prevent hypotension, monitor closely mood Resumed on baseline bupropion, Effexor pancytopenia resolved likely due to acute illness sacrum wound poa stage 2 pressure injury acrum -Off Load Pressure - Cleanse with PH balance spray or wipes, pat dry. ?Apply thin layer of Triad to wound bed - only pat and dab no scrub and rub when soiling occurs. Reapply thin layer PRN after each episode of incontinence. DNR DNI Heparin dispo- returned to long-term care at [facility] when medically stable Will require ongoing hospitalization for ongoing specialty consultation along with speech evaluation. Also require continued IV antibiotics pending completion of cultures Quality Stroke Does the patient have a stroke diagnosis?: No VTE Prior VTE?: No VTE Risk Level:: Medical - moderate - high VTE Device Contraindication: N/A - Device Ordered VTE Drug Contraindication: N/A - Med Ordered
--- NOTE | 2024-09-05 12:35 | MHC.SLORD ---
Speech Language Pathology Order Status: Pt at dialysis. Pt on clear liquid diet, recc to advance diet slowly. RN consulted, no concerns with oral/pharyngeal dysphagia.
[2024-09-05 15:52] VITALS: BP 138/61; PULSE 77; RESP 18; TEMP 36.7; O2SAT 94
[2024-09-05] MEDS: Acetaminophen 325 MG TABLET 650 MG PO (17:39)
[2024-09-05 19:51] VITALS: BP 125/57; PULSE 93; RESP 20; TEMP 36.1; O2SAT 98
[2024-09-05] MEDS: Docusate Sodium 100 MG CAPSULE PO (21:26)
[2024-09-05 23:22] VITALS: BP 121/55; PULSE 98; RESP 20; TEMP 36; O2SAT 99
[2024-09-06 03:50] VITALS: BP 108/57; PULSE 101; RESP 20; TEMP 36.9; O2SAT 99
[2024-09-06] MEDS: Heparin Sodium,Porcine 5,000 UNIT/ML VIAL 5000 UNIT SUBCUT ×2 (04:27→16:38)
[2024-09-06 04:48] VITALS: BMI 29.6
[2024-09-06 07:03] LABS: Phosphorus 2.9 mg/dL (2.7-4.5)
[2024-09-06 07:43] VITALS: BP 120/54; PULSE 94; RESP 16; TEMP 36.1; O2SAT 98
--- NOTE | 2024-09-06 08:45 | P.PNNP_ITS ---
Subjective Subjective Date of Service: 09/06/24 Interval history: 88-year-old lady with underlying dementia, end-stage renal disease hemodialysis admitted on 08/28/2024 with septic shock requiring pressor support further complicated by septic encephalopathy with possible aspiration. pt has been getting regular HD at facility and did not miss any HD sessions. pt continues with HD in hospital on M, W F today she is alert, and responds to questions though is disoriented to time and situation (does have baseline dementia). Speaks in short or 1-word answers potassium low today at 2.9 phosphorous is normal at 2.9 calcium and other electrolytes are normal. patient remains oliguric (caraballo) (incontinent) patient states she is tired, denies other concerns. States breathing is comfortable. Physical Exam 2 Vital Signs: Vital Signs: Last Vital Signs Temp 98.3 F 09/06/24 11:17 Pulse 95 09/06/24 11:17 Resp 18 09/06/24 11:17 BP 128/56 L 09/06/24 11:17 Pulse Ox 97 09/06/24 11:17 O2 Del Method Room Air 09/06/24 11:17 O2 Flow Rate 2 08/29/24 02:00 BMI result Body Mass Index 29.6 Const: General: comfortable, no acute distress and confusion (baseline dementia) Orientation/consciousness: oriented to person, oriented to place and confusion (baseline dementia) Neck: Neck: Yes no JVD Resp: Effort & Inspection: able to speak in complete sentences A uscultation: clear to auscultation bilaterally Cardio: Jugular venous distension: no JVD Rate: regular rate Rhythm: r egular rhythm Heart sounds: S1 normal heart sound present and S2 normal heart sound present GI: Palpation (GI): Soft to palpation Rectal Exam - Female: No tenderness : Other: caraballo in place, oliguric General: Yes no CVA tenderness Back/Spine/Pelvis: Back: no CVA tenderness Skin: Rashes: no rashes Neuro: Other: No tremors General: oriented to person, oriented to place and confusion (baseline dementia) Extrem: General: Yes normal to inspection, No edema and No pedal edema Objective Data Labs 09/05/24 05:44 09/06/24 05:43 Labs: Laboratory Results - last 24 hr 09/06/24 09/06/24 05:43 07:40 Sodium 142 Cancelled Potassium 2.9 L* D Cancelled Chloride 104 Cancelled Carbon Dioxide 18 L Cancelled Anion Gap 23 H Cancelled BUN 20 H Cancelled Creatinine 4.65 H* Cancelled Estim Creat Clear Calc 8.4 Cancelled Estimated GFR 9 Cancelled Random Glucose 85 Cancelled Calcium 9.6 Cancelled Phosphorus 2.9 Microbiology Microbiology Results: Microbiology 09/03/24 15:11 Blood - Venous Blood Culture - Preliminary No growth after 48 hours. 09/03/24 15:11 Blood - Venous Blood Culture - Preliminary No growth after 48 hours. 09/03/24 Unknown Urine clean catch - Clean Catch Midstream Urine Culture - Final No growth. 08/28/24 21:26 Blood - Venous Blood Culture - Final No growth after 5 days. 08/28/24 21:26 Blood - Venous Blood Culture - Final No growth after 5 days. 08/27/24 23:39 Blood - Venous Blood Culture - Final No growth after 5 days. 08/27/24 23:39 Blood - Venous Blood Culture - Final Coag negative Staphylococcus 08/28/24 Unknown Urine Catheterized - Caraballo Catheter Urine Culture - Final Procedures Date of Service Date of Service: 09/06/24 Assessment & Plan Assessment and plan (1) Acute metabolic encephalopathy: Status: Acute (2) Hypotension: Status: Acute (3) Anemia in chronic kidney disease: Status: Acute (4) ESRD (end stage renal disease) on dialysis: Status: Acute Plan pt with ESRD MWF, here with AMS and requiring vasopressor support for hypotension, treated for UTI, off pressors and seems to be at baseline mental status (dementia). midodrine 10mg Thursday, Thursday, Thursday prior to HD sessions due to hypotension last session on 09/02 echocardiogram on 09/02 showed hyperdynamic LV function, otherwise fairly unremarkable pt maintaining her pressures yesterday during HD, remains alert today Has AV graft on left upper extremity, no erythema H&H normal, no indication for epogen at present calcium normal at 9.6, phosphorous 2.9 volume status remains euvolemic potassium low today at 2.9, 40mEq PO potassium ordered Discussed with Dr Dobbins Time Spent With Patient Time: Total time managing care of this patient today ____ minutes. Progress Note: Quality Stroke Does the patient have a stroke diagnosis?: No
[2024-09-06] MEDS: Aspirin Enteric Coated 81 MG TABLET.DR PO (08:46)
[2024-09-06] MEDS: buPROPion HCl XL 150 MG TAB.ER.24H PO (08:46)
[2024-09-06] MEDS: Sodium Bicarbonate 650 MG TABLET PO ×2 (08:46→22:19)
[2024-09-06] MEDS: Sevelamer Carbonate Powder 800 MG POWD.PACK PO (08:46)
[2024-09-06] MEDS: Famotidine 20 MG TABLET PO (08:46)
[2024-09-06] MEDS: Venlafaxine HCl ER 150 MG CAP.ER.24H PO (08:47)
[2024-09-06 09:20] LABS: Blood Urea Nitrogen 20 mg/dL (9-16); Calcium 9.6 mg/dL (8.4-10.2); Creatinine Clr Calc Pharmacy 8.4; Estimated Glomerular Filt Rate 9; Glucose Random 85 mg/dL (60-115)
[2024-09-06 09:43] LABS: Anion Gap 23 (12-20); Carbon Dioxide 18 mmol/L (22-29); Chloride 104 mmol/L (96-108); Potassium 2.9 mmol/L (3.3-5.1); Sodium 142 mmol/L (135-145)
--- NOTE | 2024-09-06 10:13 | MHC.CM.PN ---
Per ROUNDS discussion, there is a family meeting today at 4:30 PM today to discuss the plan (? HOST/HOSTESS); CM will follow.
[2024-09-06 11:17] VITALS: BP 128/56; PULSE 95; RESP 18; TEMP 36.8; O2SAT 97
[2024-09-06] MEDS: Amoxicillin/Potassium Clav 500 MG TABLET PO (11:17)
--- NOTE | 2024-09-06 11:46 | P.PNIM_ITS ---
Subjective Subjective Date of Service: 09/06/24 Interval History: seen and examined this morning follow up for encephalopathy, UTI but limited ROS due to dementia Physical Exam 2 Vital Signs: Vital Signs: Last Vital Signs Temp 98.3 F 09/06/24 11:17 Pulse 95 09/06/24 11:17 Resp 18 09/06/24 11:17 BP 128/56 L 09/06/24 11:17 Pulse Ox 97 09/06/24 11:17 O2 Del Method Room Air 09/06/24 11:17 O2 Flow Rate 2 08/29/24 02:00 BMI result Body Mass Index 29.6 Appearing in no acute distress lung sounds are clear to auscultation heart regular rate rhythm, clear S1, S2 positive bowel sounds, abdomen is soft, nontender neuro patient is alert x3, no focal deficits Objective Data Active Medications Acetaminophen (Acetaminophen 325 Mg Tablet) 650 mg PO Q6H PRN PRN Reason: Pain, Mild (Pain Scale 1-3) Last Admin: 09/05/24 17:39 Dose: 650 mg Documented By: ALEX Amoxicillin/Clavulanate Potassium (Amoxicillin/Potassium Clav 500 Mg Tablet) 500 mg PO Q24H [facility] Last Admin: 09/06/24 11:17 Dose: 500 mg Documented By: CHLOE Aspirin (Aspirin Enteric Coated 81 Mg Tablet.Dr) 81 mg PO DAILY [facility] Last Admin: 09/06/24 08:46 Dose: 81 mg Documented By: CHLOE Bupropion HCl (Bupropion Hcl Xl 150 Mg Tab.Er.24h) 150 mg PO DAILY [facility] Last Admin: 09/06/24 08:46 Dose: 150 mg Documented By: CHLOE Docusate Sodium (Docusate Sodium 100 Mg Capsule) 100 mg PO BEDTIME [facility] Last Admin: 09/05/24 21:26 Dose: 100 mg Documented By: SAEED Famotidine (Famotidine 20 Mg Tablet) 10 mg PO DAILY [facility] Heparin Sodium (Porcine) (Heparin Sodium,Porcine 5,000 Unit/Ml Vial) 5,000 unit SUBCUT Q12H [facility] Last Admin: 09/06/24 04:27 Dose: 5,000 unit Documented By: SAEED Midodrine (Midodrine Hcl 10 Mg Tablet) 10 mg PO MoWeFr@0900 [facility] Last Admin: 09/05/24 09:10 Dose: 10 mg Documented By: ALEX Ondansetron HCl (Ondansetron Hcl 4 Mg/2 Ml Vial) 4 mg IVPUSH Q8H PRN PRN Reason: Nausea and Vomiting Last Admin: 09/03/24 16:50 Dose: 4 mg Documented By: GISSELL Ondansetron HCl (Ondansetron Odt 4 Mg Tab.Rapdis) 4 mg TRANSLINGU Q6H PRN PRN Reason: Nausea and Vomiting Polyethylene Glycol (Polyethylene Glycol 3350 17 Gm Powd.Pack) 17 gm PO DAILY [facility] Last Admin: 09/06/24 08:47 Dose: Not Given Documented By: CHLOE Non-Admin Reason: mult BM overnight Sevelamer Carbonate (Sevelamer Carbonate Powder 800 Mg Powd.Pack) 800 mg PO TIDWM [facility] Last Admin: 09/06/24 11:16 Dose: Not Given Documented By: CHLOE Non-Admin Reason: unable to tolerate Sodium Bicarbonate (Sodium Bicarbonate 650 Mg Tablet) 650 mg PO BID [facility] Last Admin: 09/06/24 08:46 Dose: 650 mg Documented By: CHLOE Venlafaxine HCl (Venlafaxine Hcl Er 150 Mg Cap.Er.24h) 150 mg PO DAILY [facility] Last Admin: 09/06/24 08:47 Dose: 150 mg Documented By: CHLOE Labs 09/05/24 05:44 09/06/24 05:43 Labs: Laboratory Results - last 24 hr 09/06/24 09/06/24 05:43 07:40 Anion Gap 23 H Cancelled Estim Creat Clear Calc 8.4 Cancelled Estimated GFR 9 Cancelled Random Glucose 85 Cancelled Calcium 9.6 Cancelled Phosphorus 2.9 Microbiology Microbiology Results: Microbiology 09/03/24 15:11 Blood Culture - Preliminary Blood - Venous No growth after 48 hours. 09/03/24 15:11 Blood Culture - Preliminary Blood - Venous No growth after 48 hours. 09/03/24 Unknown Urine Culture - Final Urine clean catch - Clean Catch Midstream No growth. Assessment and Plan (1) Ileus due to infection: Status: Acute (2) UTI (urinary tract infection): Status: Acute (3) End stage renal disease: Status: Acute Plan 88-year-old female with history of unspecified dementia, ESRD on dialysis MWF, hyperlipidemia, hypertension, COPD, hyperlipidemia, unspecified mood disorder presented to the emergency room for altered mental status and lethargy admitted to the ICU for management of hypotension/ sepsis due to UTI requiring pressor support. Maintained on pressors; over the next 48 hours weaned off pressors and was able to be transferred to telemetry 08/30 Admitted to ICU with Septic shock due to probable source urine cultures negative (received abx before culture obtained). S/p vasopressor support in the ICU. Blood pressure stable but drops during dialysis 09/03 developed increasing WBC count, tachycardia and elevated LA - repeat infectious work up obtained and no additional source of infection identified repeat UCx and blood cx also negative abd ct showing ileus and stool ball Tachycardia and lactic acidosis likely secondary to hypovolemia rather than sepsis monitor Phlebotomy>difficult stick Acute UTI active urinary sediment in ER initially. despite negative cultures Given urine collected after abx and presentation would complete course of abx po augmentin Ileus Seen by General surgery, plan for conservative management Diet decreased to clear liquids, advance slowly Constipation Has been having overflow diarrhea but CT scan showed stool ball on imaging Some able to be removed by enema Continue bowel regimen Delirium in known backdrop of dementia brain ct negative Increasing creatinine and slight up trend and calcium not likely cause of lethargy per Nephrology Ammonia slightly elevated, but having BMs, no asterixis tachycardia likely due to propranolol being on hold. no fever Aspiration precautions End-stage renal disease on hemodialysis MWF schedule nephrology following midodrine added on dialysis days to prevent hypotension, monitor closely mood Resumed on baseline bupropion, Effexor pancytopenia resolved likely due to acute illness sacrum wound poa stage 2 pressure injury acrum -Off Load Pressure - Cleanse with PH balance spray or wipes, pat dry. ?Apply thin layer of Triad to wound bed - only pat and dab no scrub and rub when soiling occurs. Reapply thin layer PRN after each episode of incontinence. DNR DNI Heparin dispo- returned to long-term care at [facility] when medically stable Will require ongoing hospitalization for ongoing specialty consultation along with speech evaluation. Also require continued IV antibiotics pending completion of cultures Quality Stroke Does the patient have a stroke diagnosis?: No VTE Prior VTE?: No VTE Risk Level:: Medical - moderate - high VTE Device Contraindication: N/A - Device Ordered VTE Drug Contraindication: N/A - Med Ordered
[2024-09-06 15:36] VITALS: BP 114/52; PULSE 86; RESP 18; TEMP 36.3; O2SAT 96
--- NOTE | 2024-09-06 17:54 | W.MHC.ACPN ---
Advanced Care Planning Note Advanced Care Planning Note Time spent (in minutes): 60 Narrative: Discussed with patient's son, [id number] and 2 granddaughters. Son wanting to make a decision to make his mother hospice as her condition has been declining for some time and IVC most recently with her ICU stay and worsening kidney function her condition is poor at this time. She is mainly bed-bound, her appetite is very poor and she has not been wanting to eat. Does not appear to be in any pain or discomfort although she is very confused. Her son with rest of his family has decided to make the patient hospice and the plan will be to transition her back to [facility] long-term care facility and have hospice providers at the facility. Family is in agreement with this. Problems Discussed (1) Ileus due to infection: (2) UTI (urinary tract infection): (3) End stage renal disease:
--- NOTE | 2024-09-06 18:10 | PC.NURSE ---
Per HCP, if unable to reach his cell phone number OK to call his Lilibeth [phone] or daughter Rose [phone]
[2024-09-06 20:00] VITALS: BP 112/51; PULSE 85; RESP 18; TEMP 36.1; O2SAT 100
--- NOTE | 2024-09-06 20:44 | PC.NURSE ---
Addendum entered by Alicia Boucher RN 09/07/24 06:41: U/S IV was successfully placed and IV KCl given overnight. Patient transported to HD this morning in stable condition. Original Note: Records Management Clerk assumed care of patient at 19:00. Patient is A&Ox1 to self only, very soft spoken and confused, difficult to understand. Hx dementia. Pt has orders from 18:00 for KCl IV x2 bag for K 2.9. PLASTIC SURGERY ASSISTANT to bedside at shift change for U/S IV placement attempts after another RN attempted IV access unsuccessfully. Of note, sites are limited to U/S IV attempts in [facility] due to LUE AV fistula. Records Management Clerk attempted additional IV ultrasound placement x2, also without success. Nursing dining service supervisor contacted with auto service writer request made for ED RN to attempt in order to replete IV KCl, as pt remains unable to take po K due to needing meds crushed/pureed diet, difficulty following basic commands.
[2024-09-06] MEDS: Potassium Chloride/H20 10 MEQ/100 ML PIGGYBACK 100 MEQ IV ×2 (22:19→23:21)
[2024-09-07] VITALS (7 sets, daily range): BP systolic 120–137; BP diastolic 63–68; PULSE 83–89; RESP 14–20; TEMP 36.3–36.6; O2SAT 90–100; BMI 30.8
[2024-09-07] MEDS: Heparin Sodium,Porcine 5,000 UNIT/ML VIAL 5000 UNIT SUBCUT (06:16)
--- NOTE | 2024-09-07 07:00 | PC.NURSE ---
Patient off floor at dialysis at time of assuming patient care.
[2024-09-07] MEDS: Midodrine HCl 10 MG TABLET PO (07:16)
--- NOTE | 2024-09-07 08:10 | P.PNNPD_ITS ---
Subjective Subjective Date of Service: 09/07/24 This patient was seen during dialysis. Interval history: 88-year-old lady with underlying dementia, end-stage renal disease hemodialysis admitted on 08/28/2024 with septic shock requiring pressor support further compl icated by septic encephalopathy with possible aspiration. pt has been getting regular HD at facility and did not miss any HD sessions. pt continues with HD in hospital on M, W F today she is alert, and responds to questions though is disoriented to time and situation (does have baseline dementia). Speaks in short or 1-word answers potassium low yesterday at 2.9 (multiple loose stools); replaced with potassium 40mEq yesterday PO, repeat pending phosphorous is normal at 2.9 yesterday calcium and other electrolytes are normal. patient remains oliguric (caraballo) (incontinent) patient states she is tired, denies other concerns. States breathing is comfortable. Physical Exam Vital Signs: Vital Signs: Last Vital Signs Temp 97.4 F 09/07/24 03:30 Pulse 83 09/07/24 03:30 Resp 20 09/07/24 03:30 BP 137/68 09/07/24 07:16 Pulse Ox 100 09/07/24 03:30 O2 Del Method Room Air 09/07/24 03:30 O2 Flow Rate 2 08/29/24 02:00 BMI result Body Mass Index 30.8 Const: General: comfortable, no acute distress and confusion (baseline dementia) Orientation/consciousness: oriented to person, oriented to place and confusion (baseline dementia) Neck: Neck: Yes no JVD Resp: Effort & Inspection: able to speak in complete sentences Auscultation: clear to auscultation bilaterally Cardio: Jugular venous distension: no JVD Rate: regular rate Rhythm: regular rhythm Heart sounds: S1 normal heart sound present and S2 normal heart sound present GI: Palpation (GI): Soft to palpation Rectal Exam - Female: No tenderness : Other: caraballo in place, oliguric General: Yes no CVA tenderness Back/Spine/Pelvis: Back: no CVA tenderness Skin: Rashes: no rashes Neuro: Other: No tremors General: oriented to person, oriented to place and confusion (baseline dementia) Extrem: General: Yes normal to inspection, No edema and No pedal edema Assessment & Plan Assessment and plan (1) Acute metabolic encephalopathy: Status: Acute (2) Hypotension: Status: Acute (3) Anemia in chronic kidney disease: Status: Acute (4) ESRD (end stage renal disease) on dialysis: Status: Acute Plan pt with ESRD MWF, had AMS and required vasopressor support for hypotension, treated for UTI, off pressors and seems to be at baseline mental status (dementia). midodrine 10mg Thursday, Thursday, Thursday prior to HD sessions due to hypotension last session on 09/02 echocardiogram on 09/02 showed hyperdynamic LV function, otherwise fairly unremarkable pt did have some mildly low BPs this a.m. at start of HD, so some fluid given back and maintaining pressures well Has AV graft on left upper extremity, no erythema/complications H&H normal, no indication for epogen at present calcium normal at 9.6, phosphorous 2.9 volume status remains euvolemic potassium replaced orally yesterday, repeat pending Discussed with Dr Dobbins Time Spent With Patient Time: Total time managing care of this patient today ____ minutes. Procedures Date of Service Date of Service: 09/07/24
--- NOTE | 2024-09-07 08:48 | MHC.CM.PN ---
Per MEDICAL ASSOCIATE/Janett's request,CM has made a referral to [facility], requesting a Hospice Informational. CM will follow.
[2024-09-07 09:29] LABS: Anion Gap 12 (12-20); Blood Urea Nitrogen 7 mg/dL (9-16); Calcium 9.1 mg/dL (8.4-10.2); Carbon Dioxide 26 mmol/L (22-29); Chloride 103 mmol/L (96-108); Estimated Glomerular Filt Rate 26; Glucose Random 83 mg/dL (60-115); Potassium 2.9 mmol/L (3.3-5.1); Sodium 138 mmol/L (135-145)
--- NOTE | 2024-09-07 09:40 | PM.DS ---
DS: Providers Provider Date of Service: 09/07/24 Date of admission: 08/28/24 04:41 Primary care physician: Jeet Coy MD Consults: 08/29/24 07:42 Consult to Nephrology Stat Consulting Provider: [facility] Reason for consultation: Established HD Patient M/W/F Has provider been notified: No 08/30/24 07:45 Consult to Wound Care Routine Reason for consultation: ?? PI to coccyx 09/03/24 15:46 Consult to General Surgery Routine Consulting Provider: [facility] Reason for consultation: abdominal pain, ileus, constipation Has provider been notified: No 09/06/24 17:51 Consult to Hospice Routine Comment: DS: Diagnosis Discharge Diagnosis (1) Acute metabolic encephalopathy: Status: Acute (2) Hypotension: Status: Acute (3) Anemia in chronic kidney disease: Status: Acute (4) ESRD (end stage renal disease) on dialysis: Status: Acute DS: Summary Hospital Course Hospital Course: History and physical as per admitting provider. Ms. Lewis is a 88-year-old female with history of unspecified dementia, ESRD on dialysis MWF, hyperlipidemia, hypertension, COPD, hyperlipidemia, unspecified mood disorder? who was sent from [facility] for change in mental status and lethargy.? She had dialysis yesterday.? The skilled nursing reported? that the patient appeared to be twitching and had an O2 sat of 80% on room air. On arrival to the ER, BP was?94/69, heart rate?72, respiratory rate?16, O2 sat 95% on room air.?Temp 99.2 F. Laboratory data significant for? BUN 29, creatinine 4.97, AST 842, ALT 466, alk-phos 212, total protein 5.7, albumin 3.0, lactic acid 0.7, Troponin 15.1.? UA indicative of a UTI. Influenza A & B, RSV, COVID negative. Imaging: ? Chest x-ray unremarkable. Head/ brain CT: no acute intracranial pathology. Abdominal ultrasound showed liver normal in appearance, prior cholecystectomy. CT abdomen pelvis revealed no acute intra-abdominal or pelvic abnormality. ED course: The patient received? 1.5 L normal saline, midazolam 1 mg, ceftriaxone 1 g, vancomycin 1 g. She remained hypotensive despite the IV fluids and was started on a Levophed drip. 88-year-old woman admitted to the ICU with septic shock. Initially required vasopressor support in the ICU for hypotension. She also had some issues with blood pressure during dialysis which has been chronic. Abdominal CT initially showed ileus and stool ball but no other infectious source. Urine culture and blood cultures were negative. She was noted to have tachycardia and lactic acidosis but this was secondary to hypovolemia. She was getting hemodialysis Thursday and Thursday and having issues with hypotension, midodrine was tried. She was noted to have a UTI and completed a course of antibiotics with p.o. Augmentin but negative urine cultures were noted. She was seen evaluated by General surgery for the ileus but plan was for conservative management only. She has been having significant delirium in the setting of a chronic dementia and had increasing creatinine causing increased lethargy. Her ammonia was slightly elevated as well but no asterixis noted. Due to the combination of medical illnesses and the fact that she has been declining over the last year. A family meeting was had for over an hour on 09/06/2024 and they had decided that they wanted her to be hospice/comfort measures only as her condition was not likely to improve but deteriorate. Patient is a resident at [facility] and the plan is to initiate hospice care there. Family is all in agreement with this and she was made comfort measures only today. Time Attestation Discharge Coordination Time (in mins): 45 Quality: Safe Use of Opioids Does Pt have an Active Cancer Diagnosis on the Problem List?: No Quality: Stroke Does the patient have a stroke diagnosis?: No Physical Exam Vital Signs: Vital Signs: Last Vital Signs Temp 97.4 F 09/07/24 03:30 Pulse 83 09/07/24 03:30 Resp 20 09/07/24 03:30 BP 137/68 09/07/24 07:16 Pulse Ox 100 09/07/24 03:30 O2 Del Method Room Air 09/07/24 03:30 O2 Flow Rate 2 08/29/24 02:00 BMI result Body Mass Index 30.8 Appearing in no acute distress head is normocephalic atraumatic eyes pupils are PERRLA sclera is anicteric mouth throat mucous membranes are intact and moist neck is supple no lymphadenopathy, no JVD noted lung sounds are clear to auscultation heart regular rate rhythm, clear S1, S2 positive bowel sounds, abdomen is soft, nontender neuro patient is alert x3, no focal deficits DS: Data Data Completed and Pending Completed studies during hospitalization [Text1]: Procedures Performance of Urinary Filtration, Intermittent, Less than 6 Hours Per Day (12/01/23) Labs on day of discharge: Laboratory Results - last 24 hr 09/06/24 09/07/24 05:43 08:43 Sodium 142 138 Potassium 2.9 L* D 2.9 L* Chloride 104 103 Carbon Dioxide 18 L 26 Anion Gap 23 H 12 BUN 7 L Creatinine 1.82 H Estim Creat Clear Calc 22.0 Estimated GFR 26 Random Glucose 83 Calcium 9.1 Preliminary micro results at discharge 09/03/24 15:11 Blood Culture - Preliminary Blood - Venous No growth after 48 hours. 09/03/24 15:11 Blood Culture - Preliminary Blood - Venous No growth after 48 hours. Discharge Plan Discharge Anticipated Discharge Date/Time: 09/07/24 07:32 Patient Disposition: Hospice - Medical Facility Discharge Diagnosis: Septic shock Hypovolemia Hypotension UTI Ileus Delirium/encephalopathy End-stage renal disease on hemodialysis Referrals: [facility] [place] [Outside] - 1 Week [place] [facility] [Outside] - 1 Week Jeet Coy MD [Primary Care Provider] - 1 Week Discharge Medications: New morphine concentrate 100 mg/5 mL (20 mg/mL) solution 10 mg PO Q6H PRN (Reason: pain) Qty: 15 0RF Rx Instructions: Partial Fill upon patient request. Hospice lorazepam [Lorazepam Intensol] 2 mg/mL concentrate 0.25 mg PO Q6H PRN (Reason: agitation) Qty: 30 0RF Rx Instructions: Hospice scopolamine base 1 mg over 3 days patch 3 day 1 patch transdermal Q3D PRN (Reason: secretions) Qty: 4 0RF Rx Instructions: Hospice Discontinued venlafaxine 150 mg tablet extended release 24hr 1 tab PO DAILY aspirin 81 mg Tablet,Delayed Release (Dr/Ec) 81 mg PO DAILY sevelamer carbonate 800 mg tablet 1 tab PO TIDAC atorvastatin 40 mg tablet 40 mg PO BEDTIME propranolol 20 mg tablet 20 mg PO BID Rx Instructions: hold if systolic <110 lorazepam 0.5 mg tablet 0.5 mg PO BEDTIME acetaminophen 500 mg Tablet 1,000 mg PO Q8H PRN (Reason: Pain) diphenhydramine HCl 25 mg Tablet 25 mg PO BEDTIME melatonin 10 mg Tablet 10 mg PO BEDTIME tramadol 50 mg Tablet 50 mg PO Q8H PRN (Reason: Pain) famotidine 20 mg Tablet 20 mg PO BID lorazepam 0.5 mg tablet 0.5 mg PO MOWEFR@0900 Rx Instructions: prior to dialysis bisacodyl 10 mg Suppository 10 mg IA DAILY PRN (Reason: Constipation) lidocaine 5 % Adhesive Patch,Medicated 1 patch TOPICAL DAILY Rx Instructions: leave on most painful area for up to 12 hrs; to back hip docusate sodium 100 mg Capsule 100 mg PO BEDTIME clotrimazole 1 % cream 1 appl topical DAILY PRN (Reason: Rash) Rx Instructions: to right foot clotrimazole 1 % cream 1 appl topical BID Rx Instructions: to right foot rash Cepacol Sore Throat (adrianna-men) 15-2.6 mg Lozenge 1 noman MUCOUS MEMBRANE Q3H PRN (Reason: Sore Throat) naloxone [Narcan] 4 mg/actuation Woodson,Non-Aerosol 1 spray INTRANASAL Q3M PRN (Reason: Opiate Reversal) Rx Instructions: spray 1 dose into ONE nostril; alternate nostrils w each dose until help arrives bupropion HCl 150 mg tablet extended release 24 hr 150 mg PO DAILY Discharge Orders: Discharge Order (Routine); Ordered 09/07/24 Ordered By: Janett Collado Diet: Advance to usual diet Activity on Discharge: As tolerated Stand Alone Forms: Patient Portal Discharge page Print Language: Romansh Care Plan Goals: Transfer to long-term care for hospice/comfort measures only No lab draws, scheduled vital signs or dialysis. No hospital transfer May use as needed medications for pain or discomfort, agitation or increased sputum production Health Concerns: Septic shock Hypovolemia Hypotension UTI Ileus Delirium/encephalopathy End-stage renal disease on hemodialysis Plan of Treatment: Transition to hospice care Assessment: See discharge summary
--- NOTE | 2024-09-07 09:51 | MHC.CM.PN ---
Patient's Primary HCP Agent/Conchita has ; Son/Darion is the Alternate.
--- NOTE | 2024-09-07 11:32 | MHC.CM.PN ---
Hospice Information has been set up for this evening, when Son/HCP/Darion and his are out of work. 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
--- NOTE | 2024-09-07 12:30 | MHC.CLN ---
F/U PO INTAKE POOR CONSUMING 0-BITES PER NSG DIET RX: PUREED-APPROPRIATE FAMILY HAS DECIDED TO MAKE PT HOSPICE CARE PRIMARY GOAL OF CARE IS COMFORT WILL D/C MAGIC CUP TID PROVIDES [id number], 27G PROTEIN WILL FOLLOW WITH TEAM AND PROVIDE SUPPORT NEEDED RD TO FOLLOW WEEKLY
--- NOTE | 2024-09-07 13:22 | HO.WOUND ---
Wound Consult: Follow up 88yr old?female admitted to [facility] on 08/28/24 - See progress notes and H&P for detailed history.? Wound consult follow up due to Comfort measures only order initiation. The below recommendations do not need changes at this time - the orders maintain comfort and dignity for the patient. All measures for comfort, prevention and wound treatment should remain in place. Sacrum Etiology: ?Stage 2 Pressure Injury Present on Admission Wound Bed: scattered red pink clean wound bed Drainage / Odor: scant serosang drainge Edges: ?irregular and attached Leilani wound: ? Slow to gladis red pink erythema, MASD - hyperpigmentation noted - No fluctuabnce no induration Pain: pain reported Goals of Treatment: Triad to protect from friction and moisture Note patient is incontinent of frequent liquid stools recommend d/c foam dressing and use triad only. JONNY mattress in use, wedges and heel protector boots in use as well. Recommendations: 1. Turn and Reposition every 2 hours and as needed for patient comfort.? Use pillows or wedges to support off loading positions. 2. Off Load all bony prominences with use of pillows and heel boots if needed.? Apply Preventative foams where needed. ? 3. Monitor for incontinence and moisture control, use barrier creams when needed for prevention and treatment. 4. Provide adequate and supplemental nutrition.? 5. Continue low air loss mattress. 6. When applicable maintain blood glucose levels per Providers order. 7. Sacrum -Off Load Pressure - Cleanse with PH balance spray or wipes, pat dry. ?Apply thin layer of Triad to wound bed - only pat and dab no scrub and rub when soiling occurs. Reapply thin layer PRN after each episode of incontinence. Re-consult wound care Nurse for wound deterioration or wound changes.
--- NOTE | 2024-09-07 13:55 | P.PNIM_ITS ---
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 Physical Exam 2 Vital Signs: Vital Signs: Last Vital Signs Temp 98 F 09/07/24 10:56 Pulse 89 09/07/24 10:56 Resp 18 09/07/24 10:56 BP 120/63 09/07/24 10:56 Pulse Ox 90 L 09/07/24 10:56 O2 Del Method Room Air 09/07/24 10:56 O2 Flow Rate 2 08/29/24 02:00 BMI result Body Mass Index 30.8 Alert , confused Objective Data Active Medications Acetaminophen (Acetaminophen 325 Mg Tablet) 650 mg PO Q6H PRN PRN Reason: Pain, Mild (Pain Scale 1-3) Last Admin: 09/05/24 17:39 Dose: 650 mg Documented By: ALEX Ondansetron HCl (Ondansetron Hcl 4 Mg/2 Ml Vial) 4 mg IVPUSH Q8H PRN PRN Reason: Nausea and Vomiting Last Admin: 09/03/24 16:50 Dose: 4 mg Documented By: GISSELL Ondansetron HCl (Ondansetron Odt 4 Mg Tab.Rapdis) 4 mg TRANSLINGU Q6H PRN PRN Reason: Nausea and Vomiting Labs 09/05/24 05:44 09/07/24 08:43 Labs: Laboratory Results - last 24 hr 09/07/24 08:43 Anion Gap 12 Estim Creat Clear Calc 22.0 Estimated GFR 26 Random Glucose 83 Calcium 9.1 Assessment and Plan (1) Ileus due to infection: Status: Acute (2) UTI (urinary tract infection): Status: Acute (3) End stage renal disease: Status: Acute Plan 88-year-old female with history of unspecified dementia, ESRD on dialysis MWF, hyperlipidemia, hypertension, COPD, hyperlipidemia, unspecified mood disorder presented to the emergency room for altered mental status and lethargy admitted to the ICU for management of hypotension/ sepsis due to UTI requiring pressor support. Maintained on pressors; over the next 48 hours weaned off pressors and was able to be transferred to telemetry 08/30 [facility] no labs draw, no scheduled vital signs all scheduled medications stopped no further dialysis treatments may eat if able morphine for pain or tachycardia ativan for anxiety scopalamine for secretions waiting for hospice information then tx back to LTC Admitted to ICU with Septic shock due to probable source urine cultures negative (received abx before culture obtained). S/p vasopressor support in the ICU. Blood pressure stable but drops during dialysis 09/03 developed increasing WBC count, tachycardia and elevated LA - repeat infectious work up obtained and no additional source of infection identified repeat UCx and blood cx also negative abd ct showing ileus and stool ball Tachycardia and lactic acidosis likely secondary to hypovolemia rather than sepsis monitor Phlebotomy>difficult stick Acute UTI active urinary sediment in ER initially. despite negative cultures Given urine collected after abx and presentation would complete course of abx po augmentin Ileus Seen by General surgery, plan for conservative management Diet decreased to clear liquids, advance slowly Constipation Has been having overflow diarrhea but CT scan showed stool ball on imaging Some able to be removed by enema Continue bowel regimen Delirium in known backdrop of dementia brain ct negative Increasing creatinine and slight up trend and calcium not likely cause of lethargy per Nephrology Ammonia slightly elevated, but having BMs, no asterixis tachycardia likely due to propranolol being on hold. no fever Aspiration precautions End-stage renal disease on hemodialysis MWF schedule nephrology following midodrine added on dialysis days to prevent hypotension, monitor closely mood Resumed on baseline bupropion, Effexor pancytopenia resolved likely due to acute illness sacrum wound poa stage 2 pressure injury sacrum -Off Load Pressure - Cleanse with PH balance spray or wipes, pat dry. ?Apply thin layer of Triad to wound bed - only pat and dab no scrub and rub when soiling occurs. Reapply thin layer PRN after each episode of incontinence. 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 when medically stable Quality Stroke Does the patient have a stroke diagnosis?: No VTE Prior VTE?: No VTE Risk Level:: Medical - moderate - high VTE Device Contraindication: N/A - Device Ordered VTE Drug Contraindication: N/A - Med Ordered
--- NOTE | 2024-09-07 15:13 | MHC.CM.PN ---
Addendum entered by Adela Caban 09/07/24 15:17: [facility] will transport Patient to [facility] today at 6:30 PM. Original Note: Per SOFTWARE TEAM LEADER, Patient has been medically cleared for dc today, to return to LTC @ [facility] will begin tomorrow at [facility]. CM spoke with Son/HCP/Darion @ [phone] and addressed IMM with him(original will be mailed certified letter to him @ [address] [place] [address] in [place] [address] and a copy has been placed on the chart) and informed him of the dc plan.
== END 2024-09-07 19:00 | disposition hospice, inpatient (51) | DRG 871 ==
LOC: HO.ED 08-28 02:24 → HO.EDOVER 08-28 04:48 → HO.ICU 08-28 04:54 → HO.IMC 08-30 16:02
PROVIDERS: Hospitalist; Internal Medicine; Internal Medicine Critical Care Medicine; Internal Medicine Pulmonary Disease; Nurse Practitioner Family; Physician Assistant Medical; Admitting Provider Nurse Practitioner Family; Emergency Provider Emergency Medicine; PCP Family Medicine; Visit Provider Nurse Practitioner Acute Care
DX: A41.9 Sepsis, unspecified organism (principal); G93.41 Metabolic encephalopathy; N18.6 End stage renal disease; R65.21 Severe sepsis with septic shock; I12.0 Hypertensive chronic kidney disease with stage 5 chronic kidney disease or end stage renal disease; F05 Delirium due to known physiological condition; D61.818 Other pancytopenia; K56.7 Ileus, unspecified; N39.0 Urinary tract infection, site not specified; I95.3 Hypotension of hemodialysis; Z66 Do not resuscitate; L89.152 Pressure ulcer of sacral region, stage 2; K59.00 Constipation, unspecified; Z99.2 Dependence on renal dialysis; F03.90 Unspecified dementia, unspecified severity, without behavioral disturbance, psychotic disturbance, mood disturbance, and anxiety; E86.1 Hypovolemia; D63.1 Anemia in chronic kidney disease; Z51.5 Encounter for palliative care; Z90.49 Acquired absence of other specified parts of digestive tract; Z20.822 Contact with and (suspected) exposure to COVID-19; Z79.899 Other long term (current) drug therapy
CPT/HCPCS: 36415; 36600; 70450; 71045; 74176; 76705; 80048; 80053; 80076; 80202; 81001; 81003; 82040; 82140; 82533; 82550; 82803; 82947; 83605; 83735; 84100; 84443; 84484; 85025; 86850; 86900; 86901; 87040; 87086; 87147; 87205; 87635; 90999; 92526; 92610; 93005; 93306; 99285; C1758; J0696; J1644; J2060; J2250; J2405; J2543; J3370; J3480; J7120; P9047

== ENCOUNTER 2024-08-28 04:41 | Outpatient (BNV) | payer MEDICARE, MEDICAID, SELFPAY | END 2024-09-02 13:00 | PROVIDERS: Admitting Provider Nurse Practitioner Family; Emergency Provider Emergency Medicine; PCP Family Medicine; Visit Provider Internal Medicine Cardiovascular Disease | DX: I35.0 Nonrheumatic aortic (valve) stenosis (principal); I35.8 Other nonrheumatic aortic valve disorders | CPT/HCPCS: 93306 ==

== ENCOUNTER → 2024-08-28 04:41 | Outpatient (BNV) | payer MEDICARE, MEDICAID, SELFPAY | PROVIDERS: Admitting Provider Nurse Practitioner Family; Emergency Provider Emergency Medicine; PCP Family Medicine; Visit Provider Internal Medicine Pulmonary Disease | DX: N39.0 Urinary tract infection, site not specified (principal); G93.41 Metabolic encephalopathy; N18.6 End stage renal disease; F03.90 Unspecified dementia, unspecified severity, without behavioral disturbance, psychotic disturbance, mood disturbance, and anxiety | CPT/HCPCS: 99232; 99291 ==

== ENCOUNTER → 2024-08-28 04:41 | Outpatient (BNV) | payer MEDICARE, MEDICAID, SELFPAY | PROVIDERS: Admitting Provider Nurse Practitioner Family; Emergency Provider Emergency Medicine; PCP Family Medicine; Visit Provider Surgery | DX: K56.7 Ileus, unspecified (principal); B99.9 Unspecified infectious disease | CPT/HCPCS: 99222; 99231; 99232 ==

== ENCOUNTER → 2024-08-28 04:41 | Outpatient (BNV) | payer MEDICARE, MEDICAID, SELFPAY | PROVIDERS: Admitting Provider Nurse Practitioner Family; Emergency Provider Emergency Medicine; PCP Family Medicine; Visit Provider Nurse Practitioner Family | DX: G93.41 Metabolic encephalopathy (principal); N18.6 End stage renal disease; Z99.2 Dependence on renal dialysis; D63.1 Anemia in chronic kidney disease; I95.9 Hypotension, unspecified | CPT/HCPCS: 90935; 99223; 99232 ==

== ENCOUNTER → 2024-08-28 04:41 | Outpatient (BNV) | payer MEDICARE, MEDICAID, SELFPAY | PROVIDERS: Admitting Provider Nurse Practitioner Family; Emergency Provider Emergency Medicine; PCP Family Medicine; Visit Provider Hospitalist | DX: I95.9 Hypotension, unspecified (principal); N39.0 Urinary tract infection, site not specified; N18.6 End stage renal disease; G93.41 Metabolic encephalopathy; F03.90 Unspecified dementia, unspecified severity, without behavioral disturbance, psychotic disturbance, mood disturbance, and anxiety | CPT/HCPCS: 99232; 99233; 99239; 99497; 99499 ==

== ENCOUNTER → 2024-08-28 04:41 | Outpatient (BNV) | payer MEDICARE, MEDICAID, SELFPAY | PROVIDERS: Admitting Provider Nurse Practitioner Family; Emergency Provider Emergency Medicine; PCP Family Medicine; Visit Provider Nurse Practitioner Family | DX: N18.6 End stage renal disease (principal); Z99.2 Dependence on renal dialysis; I95.9 Hypotension, unspecified; N39.0 Urinary tract infection, site not specified | CPT/HCPCS: 99223; 99291 ==